=== PATIENT | female | born 1950 | race Caucasian/White ===

== ENCOUNTER → 2018-02-01 10:15 | Outpatient (CLI) | payer MEDICARE, OTHER, SELFPAY ==
[2018-02-01 11:37] LABS: AST(SGOT) 16 U/L (15-37); Alanine Aminotransfer ALT/SGPT 24 U/L (13-56); Albumin, Serum 3.7 g/dL (3.2-5.0); Alkaline Phosphatase 104 U/L (45-117); Anion Gap 7 (5-15); BUN 8 mg/dL (7-18); BUN/Creat Ratio 9.5 RATIO (10-20); Calcium,Total 8.7 mg/dL (8.5-10.1); Chloride 108 mmol/L (98-107); Creatinine, Serum 0.85 mg/dL (0.55-1.02); EST Glomerular Filtration Rate 71 mL/min (>60); Est Glom Filt Rate - Afr Amer 86 mL/min (>60); Globulin 3.7 g/dL (2.2-4.2); Glucose 81 mg/dL (74-106); Potassium 4.4 mmol/L (3.5-5.1); Protein, Total 7.4 g/dL (6.4-8.2); Sodium Level 141 mmol/L (136-145); Thyroid Stim Hormone (TSH) 0.16 uIU/mL (0.358-3.74)
== END ==
PROVIDERS: Family Provider Nurse Practitioner; PCP Nurse Practitioner; Visit Provider Internal Medicine Endocrinology, Diabetes & Metabolism
DX: E89.0 Postprocedural hypothyroidism (principal); E55.9 Vitamin D deficiency, unspecified
CPT/HCPCS: 36415; 80053; 82306; 84443

== ENCOUNTER → 2018-05-05 12:30 | Outpatient (CLI) | payer MEDICARE, OTHER, SELFPAY ==
--- NOTE | 2018-05-05 12:37 | BI_ITS ---
MAMMOGRAPHY - BILATERAL SCREENING 3-D RUPERTO SYNTHESIS REASON FOR EXAM: Female, 68 years old. Bilateral Screening 3-D tomosynthesis PERTINENT HISTORY: Mother and aunt with breast cancer.. TECHNIQUE: 2-D mammograms and 3-D Ruperto synthesis of the breast (s) were performed. CAD was performed. COMPARISON: 05/04/2017 FINDINGS: The breast composition is composed of scattered fibroglandular density. Scattered benign calcifications are seen. No dense spiculated masses or suspicious microcalcifications are identified. No architectural distortion is identified. There is no skin thickening or retraction. There has been no significant change since the prior study. BI/SCREENING MAMM (CAD), BILAT IMPRESSION: No mammographic signs of malignancy. Routine yearly mammograms recommended. ASSESSMENT CATEGORY: BIRADS Category 2: Benign. A letter regarding these results will be sent to the patient by the facility within 30 days. FOLLOW UP RECOMMENDATION: Yearly follow up mammogram recommended. (A) Approximately 10% of breast cancers are not detected by mammography. A normal mammogram should not delay biopsy of a clinically suspicious abnormality. Electronically Signed: Ace Vazquez MD at 15:02 EDT , Service support ,
== END ==
PROVIDERS: Family Provider Nurse Practitioner; PCP Nurse Practitioner; Visit Provider Nurse Practitioner
DX: Z12.31 Encounter for screening mammogram for malignant neoplasm of breast (principal)
CPT/HCPCS: 77063; 77067

== ENCOUNTER → 2018-06-10 10:03 | Outpatient (CLI) | payer MEDICARE, OTHER, SELFPAY | PROVIDERS: Family Provider Nurse Practitioner; PCP Nurse Practitioner; Visit Provider Internal Medicine Endocrinology, Diabetes & Metabolism | DX: E89.0 Postprocedural hypothyroidism (principal) ==

== ENCOUNTER → 2018-06-11 08:52 | Outpatient (CLI) | payer MEDICARE, OTHER, SELFPAY ==
[2018-06-11 09:38] LABS: AST(SGOT) 15 U/L (15-37); Alanine Aminotransfer ALT/SGPT 26 U/L (13-56); Albumin, Serum 3.8 g/dL (3.2-5.0); Alkaline Phosphatase 117 U/L (45-117); Anion Gap 10 (5-15); BUN 9 mg/dL (7-18); BUN/Creat Ratio 10.7 RATIO (10-20); Calcium,Total 8.9 mg/dL (8.5-10.1); Chloride 107 mmol/L (98-107); Creatinine, Serum 0.84 mg/dL (0.55-1.02); EST Glomerular Filtration Rate 72 mL/min (>60); Est Glom Filt Rate - Afr Amer 87 mL/min (>60); Glucose 89 mg/dL (74-106); Potassium 4.1 mmol/L (3.5-5.1); Protein, Total 7.8 g/dL (6.4-8.2); Sodium Level 143 mmol/L (136-145); Thyroid Stim Hormone (TSH) 0.62 uIU/mL (0.358-3.74)
== END ==
PROVIDERS: Family Provider Nurse Practitioner; PCP Nurse Practitioner; Visit Provider Internal Medicine Endocrinology, Diabetes & Metabolism
DX: E89.0 Postprocedural hypothyroidism (principal)
CPT/HCPCS: 80053; 84443

== ENCOUNTER → 2018-12-20 08:45 | Outpatient (CLI) | payer MEDICARE, OTHER, SELFPAY ==
[2018-12-20 10:24] LABS: AST(SGOT) 13 U/L (15-37); Alanine Aminotransfer ALT/SGPT 22 U/L (13-56); Albumin, Serum 3.9 g/dL (3.2-5.0); Alkaline Phosphatase 116 U/L (45-117); Anion Gap 11 (5-15); BUN 8 mg/dL (7-18); BUN/Creat Ratio 9.1 RATIO (10-20); Chloride 107 mmol/L (98-107); Cholesterol 199 mg/dL (200); Creatinine, Serum 0.88 mg/dL (0.55-1.02); EST Glomerular Filtration Rate 68 mL/min (>60); Est Glom Filt Rate - Afr Amer 82 mL/min (>60); Globulin 3.9 g/dL (2.2-4.2); Glucose 88 mg/dL (74-106); High Density Lipoprotein 58 mg/dL; Magnesium 2.1 mg/dL (1.6-2.6); Potassium 3.9 mmol/L (3.5-5.1); Protein, Total 7.8 g/dL (6.4-8.2); Sodium Level 143 mmol/L (136-145); Thyroid Stim Hormone (TSH) 1.07 uIU/mL (0.358-3.74); Triglycerides 146 mg/dL; Very Low Density Lipoprotein 29 mg/dL (5-40); Vitamin D,25 Hydroxy 71.7 ng/mL (29.95-100.01)
== END ==
PROVIDERS: Family Provider Nurse Practitioner; PCP Nurse Practitioner; Referring Provider Internal Medicine Endocrinology, Diabetes & Metabolism; Visit Provider Internal Medicine Endocrinology, Diabetes & Metabolism
DX: E89.0 Postprocedural hypothyroidism (principal); E78.2 Mixed hyperlipidemia; E83.42 Hypomagnesemia; E55.9 Vitamin D deficiency, unspecified
CPT/HCPCS: 36415; 80053; 80061; 82306; 83735; 84443

== ENCOUNTER → 2019-05-05 10:55 | Outpatient (CLI) | payer MEDICARE, OTHER, SELFPAY ==
--- NOTE | 2019-05-05 10:58 | RAD_ITS ---
STUDY: X-RAY - PELVIS AND RIGHT HIP REASON FOR EXAM: Female, 69 years old. Low back pain. TECHNIQUE: 3 views of the pelvis and hip. COMPARISON: None. FINDINGS: There is a non-specific bowel gas pattern. Phleboliths in the pelvis. Mild generalized osteopenia. Normal bilateral iliac wings, sacroiliac joints and visualized sacrum. Normal bilateral superior and inferior pubic rami. Normal pubic symphysis. Normal bilateral ischial tuberosities. Incidental note of spina bifida occulta of S1, a normal variant. Mild arthrosis of both hips. RAD/HIP, UNI W/ Pelvis 2-3 Views IMPRESSION: Osteopenia with mild arthrosis of both hips. Electronically Signed: Timoteo Curtis MD at 13:30 EDT , Service support ,
--- NOTE | 2019-05-05 10:58 | RAD_ITS ---
STUDY: X-RAY - LUMBAR SPINE REASON FOR EXAM: Female, 69 years old. Back pain. TECHNIQUE: 5 view(s) of the lumbar spine were obtained. COMPARISON: None FINDINGS: Mild generalized osteopenia. Normal lumbar lordosis. There is no substantial scoliosis. There is a normal alignment of the vertebrae. Normal vertebral bodies and endplates. Minimal intervertebral disc space narrowing most marked at L5-S1 with vacuum phenomenon. Diffuse facet sclerosis. Vascular calcification. RAD/L/S Spine Min 4 Views IMPRESSION: Osteopenia with mild lower lumbar spondylosis. Electronically Signed: Timoteo Curtis MD at 13:29 EDT , Service support ,
== END ==
PROVIDERS: Family Provider Nurse Practitioner; PCP Nurse Practitioner; Referring Provider Orthopaedic Surgery; Visit Provider Orthopaedic Surgery
DX: M85.88 Other specified disorders of bone density and structure, other site (principal); M16.0 Bilateral primary osteoarthritis of hip
CPT/HCPCS: 72110; 73502

== ENCOUNTER → 2019-05-06 11:44 | Outpatient (CLI) | payer MEDICARE, OTHER, SELFPAY ==
--- NOTE | 2019-05-06 11:48 | BI_ITS ---
MAMMOGRAPHY - BILATERAL SCREENING 3-D TOMOSYNTHESIS REASON FOR EXAM: Female, 69 years old. Bilateral Screening 3-D tomosynthesis PERTINENT HISTORY: Mother and aunt with breast cancer.. TECHNIQUE: 2-D mammograms and 3-D Tomosynthesis of the breast (s) were performed. CAD was performed. COMPARISON: 05/05/2018 FINDINGS: The breast composition is almost entirely fat. Scattered benign calcifications are seen. No dense spiculated masses or suspicious microcalcifications are identified. No architectural distortion is identified. There is no skin thickening or retraction. There has been no significant change since the prior study. BI/SCREEN MAMM (CAD) W/RUPERTO BILAT IMPRESSION: No mammographic signs of malignancy. Routine yearly mammograms recommended. ASSESSMENT CATEGORY: BIRADS Category 1: Negative. A letter regarding these results will be sent to the patient by the facility within 30 days. FOLLOW UP RECOMMENDATION: Yearly follow up mammogram recommended. (A) Approximately 10% of breast cancers are not detected by mammography. A normal mammogram should not delay biopsy of a clinically suspicious abnormality. Electronically Signed: Ace Vazquez MD at 13:09 EDT , Service support ,
== END ==
PROVIDERS: Family Provider Nurse Practitioner; PCP Nurse Practitioner; Referring Provider Nurse Practitioner; Visit Provider Nurse Practitioner
DX: Z12.31 Encounter for screening mammogram for malignant neoplasm of breast (principal); Z80.3 Family history of malignant neoplasm of breast
CPT/HCPCS: 77063; 77067

== ENCOUNTER 2019-06-24 13:30 | Outpatient (RCR) | payer MEDICARE, OTHER, SELFPAY ==
--- NOTE | 2019-05-16 14:47 | HP.PTEVAL ---
Patient's Visit Information CARMEN GARCIA is a 69 year old F referred to Physical Therapy by Bea Escoto DO with a diagnosis of LUMBAR DDD, FACET, RADICULOPATHY AND PIRIFORMIS SYND. Date of Evaluation: 05/16/19 Physical Therapist: Lindsey Mason, PT, Cert MDT - Visit Plan Frequency: 2-3x /Week Duration: 4-6 Weeks Plan: AQUATIC THERAPY FOR PAIN RELEIF, POSTURE CORRECTION/STRENGTHENING, INSTRUCTION IN APPROPRIATE BODY MECHANICS AND ACTIVITY MODIFICATIONS. DLS WITH A NEUTRAL SPINE. JANEL LE ROM, STRETCHING AND STRENGTHENING. HEP INSTRUCTION. - Subjective Findings: Work/Leisure: RETIRED. Disability: NO. Present symptoms: RIGHT HIP AND BUTTOCK PAIN. AT NIGHT JANEL HIP PAIN. MY LOWER BACK IS REAL ACHY. PATIENT DENIES JANEL LE NUMBNESS AND TINGLING. HAND AND LEG TREMORS - STATES DR. ESCOTO TOLD HER TO FOLLOW UP WITH HER FAMILY DOCTOR ABOUT. RIGHT LE WEAKNESS. Present since: NOV 2018. Pain Scale: WORST 7/10, LEAST 1/10. Currently: 10/21. Commenced as a result of: NO APPARENT REASON. Symptoms at onset: RIGHT HIP. Worse: STAIRS, LYING ON SIDES AT NIGHT, MORE STRENUOUS ACTIVITY LIKE MOWING, TRYING TO INITIATE GAIT AFTER SITTING RIGHT HIP IS REALLY TIGHT, AHES DOING DISHES - IN LOW BACK. Better: SITTING. Disturbed sleep: YES. Previous history/Previous treatment: AQUATIC THERAPY AT [facility] IN DECEMBER AND JANUARY - WATER HELPED SOME BUT DIDN'T FEEL LIKE SHE WAS ACCOMPLISHING A WHOLE LOT. WAS DOING HEP BUT SLACKED OFF AND NOW FLARED UP AGAIN. Coughing/sneezing/straining: NO. Gait: RIGHT SIDE IS STIFFER. Difficulty initiating urinatin: NO. Accidents: NO. Unexplained weight loss: NO. Imaging: RECENT HIP AND BACK X-RAYS - NO CHANGE FROM PRIOR X-RAYS. ARTHRITIS. PMH: UNREMARKABLE. Recent major surgery: NO. OTHER: ALSO RECEIVED REFERRAL FOR DR. LOGAN - PATIENT IS AWAITING CALL TO SCHEDULE - Objective Sitting/Standing: POOR. Lordosis: REDUCED. Lateral shift: NO. Relevant shift: N/A. Active Correction of posture: WORSE - PULLING ON LOW BACK. Other Observations: SLOW INDEP GAIT INTO PT WITH NO GROSS DEVIATIONS NOTED. INDEP TRANSFER SIT TO STAND WITHOUT UE ASSIST. Motor deficit: JANEL LE'S 5/5 WITH MMT'ING EXCEPT RIGHT HIP 4-/5 AND LEFT HIP 4/5. Sensory deficit: NO. ROM deficit: NO BUT TESTING OR RIGHT HIP IR PROVOKES RIGHT HIP PAIN. Reflexes: 1/2 JANEL LE'S. Dural Signs: NEGATIVE JANEL LE'S. Lumbar mvmt loss: flex - MIN. ext - GABRIELA. R SG - GABRIELA. L SG - GABRIELA. PATIENT DENIES INCREASED PAIN WITH LUMBAR ROM TESTING BUT STATES SHE FEELS A PULL ON HER LOW BACK ALL PLANES. Core strength: POOR. Palpation: NO ACUTE TENDERNESS OF BACK OR HIPS TODAY. - Goals Goal 1:: DECREASE C/O LOW BACK AND JANEL HIP PAIN Goal Time Frame: 4-6 Weeks Goal 2:: IMPROVE LIFTING, WALKING, STANDING, SLEEP AND HOMEMAKING FUNCTION Goal Time Frame: 4-6 Weeks Goal 3:: INSTRUCT IN PROPHYLAXIS Goal Time Frame: 4-6 Weeks - Rehabilitation Potential Rehabilitation Potential: Fair - Anticipated Interventions Patient/Client Instruction: Educate patient on: Condition, Plan of Care, Risk Factors, Benefits of Fitness Program For the Purpose of:: To improve self management Therapeutic Exercise to Include: Strength training, Body mechanics, Postural training, Flexibilty training, In an aquatic setting, Dynamic Lumbar Stabilization For the Purpose of:: To decrease pain, To increase ROM, To improve muscle performance and motor function, To increase tolerance to activity/condition/position, To improve ability of physical actions for home/community/work/leisure Thank you for the opportunity to evaluate your patient. For Medicare and Medicare HMO plans, please review the plan of care and approve it. It will need to be FAXED BACK to us at [phone] for Medicare purposes. For Medicare only, by signing this I certify the plan of care. Please let me know if there are questions or concerns regarding this plan of care. Physician Signature: Date:
--- NOTE | 2019-06-24 14:05 | HP.PTDCSUM ---
HP - PT D/C Summary It has been my pleasure to treat CARMEN GARCIA under orders from Bea Jacobs DO, for the diagnosis of LUMBAR DDD, FACET, RADICULOPATHY AND PIRIFORMIS SYND for a total of 9 visit(s). Discharge Date: 06/24/19 Please see the following information for a summary of their discharge status. - Subjective Subjective: I FEEL LOOSER. WHEN I GET UP AFTER SITTING MY HIP ISN'T STIFF IT WAS. STEPS ARE BETTER. RIGHT LEFT IS STRONGER. PATIENT REPORTS THAT AT THIS POINT SHE WANTS TO TRY TO FOLLOW UP WITH THE EX'S ON HER OWN AT HOME TO KEEP THE PROGRESS ACTIVE. I THINK THE POOL STUFF REALLY HELPED BUT I DON'T THINK I NEED TO DO IT ANYMORE. - Pain LB Pain Intensity (Out of 10): 0 R hip Pain Intensity (Out of 10): 0 - Overall Improvement % Improvement: 50 - Objective Objective/Function: PATIENT HAS MADE GOOD PROGRESS TOWARD ALL PT GOALS STATING SHE IS A LOT BETTER BUT IT ISN'T WONDERFUL. Active Correction of posture: BETTER. Other Observations: SLOW INDEP GAIT INTO PT WITH NO GROSS DEVIATIONS NOTED. INDEP TRANSFER SIT TO STAND WITHOUT UE ASSIST. Motor deficit: JANEL LE'S 5/5 WITH MMT'ING. Sensory deficit: NO. ROM deficit: NO. Reflexes: NT. Dural Signs: NEGATIVE JANEL LE'S. Lumbar mvmt loss: flex - MIN. ext - MOD. R SG - MOD. L SG - MOD. PATIENT DENIES INCREASED PAIN WITH LUMBAR ROM TESTING BUT STATES SHE STILL FEELS A PULL ON HER LOW BACK ALL PLANES. Core strength: POOR. Palpation: NO ACUTE TENDERNESS OF BACK OR HIPS TODAY. - Goals Goal 1:: DECREASE C/O LOW BACK AND JANEL HIP PAIN Goal Progress: Progressing Goal 2:: IMPROVE LIFTING, WALKING, STANDING, SLEEP AND HOMEMAKING FUNCTION Goal Progress: Progressing Goal 3:: INSTRUCT IN PROPHYLAXIS Goal Progress: Progressing - Plan Plan: D/C TO INDEP HEP AT PATIENTS REQUEST. - D/C Information If there are questions or concerns regarding this patient's physical therapy, please feel free to call me at [phone]. Thank you for the referral of this patient. Sincerely, Lindsey Mason, PT, Cert MDT
== END 2019-06-24 19:00 | disposition home or self-care (01) ==
LOC: PT 13:30
PROVIDERS: Family Provider Nurse Practitioner; PCP Nurse Practitioner; Referring Provider Orthopaedic Surgery; Visit Provider Orthopaedic Surgery
DX: M51.36 Other intervertebral disc degeneration, lumbar region (principal); M46.96 Unspecified inflammatory spondylopathy, lumbar region; M54.16 Radiculopathy, lumbar region
CPT/HCPCS: 97113; 97162; 97530

== ENCOUNTER → 2019-07-14 14:08 | Outpatient (CLI) | payer MEDICARE, OTHER, SELFPAY ==
--- NOTE | 2019-07-14 14:14 | CT_ITS ---
STUDY: CTA CHEST REASON FOR EXAM: Female, 69 years old. Elevated d-dimer. RADIATION DOSAGE (If Supplied By Facility): CTDIvol = ( 10.25 ) mGy, DLP = ( 477.21 ) mGycm TECHNIQUE: The examination was performed with the intravenous administration of IV 100mL [id number]-370 100. Post-processing of the angiographic images was performed, with multiplanar reformation and 3D reconstruction. Individualized dose optimization techniques were used for this CT. COMPARISON: None. FINDINGS: Normal enhancement of the main pulmonary artery and right and left pulmonary arteries. Normal enhancement of the bilateral peripheral pulmonary arteries. There is no demonstrated pulmonary embolism. There is atherosclerotic calcification of the aortic arch with tortuosity. There is no demonstrated aortic dissection. Normal heart and pericardium. Normal mediastinum. Normal hilar regions. Normal visualized trachea and bronchi. The lungs are well expanded. Normal pulmonary parenchyma. Normal pleura. Normal chest wall structures. Normal osseous structures. Small hiatal hernia. CT/CTA Chest W/WO Contrast IMPRESSION: Normal CTA chest examination, without a demonstrated pulmonary embolism or arterial dissection. Electronically Signed: Jorge Paz, at 15:10 EDT , Service support ,
[2019-07-14 14:46] LABS: CREATININE FINGERSTICK 0.8 mg/dL (0.55-1.02); EGFR FINGERSTICK > 60.0000 mL/min (>60)
== END ==
PROVIDERS: Family Provider Nurse Practitioner; PCP Nurse Practitioner; Referring Provider Nurse Practitioner; Visit Provider Nurse Practitioner
DX: R79.89 Other specified abnormal findings of blood chemistry (principal)
CPT/HCPCS: 71275; Q9967

== ENCOUNTER 2019-07-21 11:19 | Outpatient (RCR) | payer MEDICARE, OTHER, SELFPAY ==
--- NOTE | 2019-07-21 12:09 | HP.PTEVAL ---
Patient's Visit Information CARMEN GARCIA is a 69 year old F referred to Physical Therapy by VALENTIN Shukla with a diagnosis of BACK PAIN. Date of Evaluation: 07/21/19 Physical Therapist: Lindsey Mason PT, Cert MDT - Visit Plan Frequency: 1 Duration: 1 Plan: D/C. ONE TIME VISIT ONLY FOR HOME TENS UNIT ASSESSMENT AND INSTRUCTION. - Subjective Findings: PATIENT REPORTS SHE IS STILL DOING HER HOME EX'S AND THAT KIND OF HELPS KEEP IT FREED UP. STATES DR. LOGAN RECOMMENDED [facility] BUT SHE DECLINED THAT ROUTE AND WENT BACK TO HER FAMILY DOCTOR. WANTS TO TRY HOME TENS UNIT IN CONJUNCTION WITH HER HOME EX'S AND SEE HOW SHE DOES. PATIENT WAS RECENTLY HERE FOR AN EPISODE OF CARE MAY 2019 TO JUN 2019 FOR BACK PAIN. Present symptoms: DULL STEADY ACHE ACROSS BOTTOM OF LOW BACK. Present since: NOV 2018. Pain Scale: WORST 4/10, LEAST 1/10. Currently: 1/10. Worse: STANDING DOING DISHES, MOWING, LIFTING. Better: LYING IN BED. Previous history/Previous treatment: PYSICAL THERAPY, [facility]. OTHER: NO PACEMAKER. NO METAL IN LOW BACK. HAS NOT HAD ELECTRAL STIM TREATMENT IN PAST OR EVEN SEEN A UNIT. - Objective THIS PATIENT PRESENTS TO PHYSICAL THERAPY WITH C/O LOW BACK PAIN AND REQUESTING A HOME TENS UNIT TO USE IN CONJUNCTION WITH HER HOME EX PROGRAM. PATIENT WAS GIVEN INSTRUCTION IN THE PROPER USE OF A HOME TENS UNIT AND THE UNIT WAS APPLIED TO HER FOR SEVERAL MINUTES TO ASSESS RESPONSE TO TREATMENT. PATIENT DEMONSTRATED AND COMMUNICATED A GOOD UNDERSTANDING OF ALL INSTRUCTIONS AFTER GIVEN AND IS A GOOD CANDIDATE TO TRY A HOME TENS UNIT WITH 4 LEADS TO COVER AFFECTED AREA. PATIENT LIVES ALONE. SHE IS GOING TO ASK HER DAUGHTER OR SISTER TO HELP HER NEEDED WITH APPLICATION IN THE BEGINNING. - Goals Goal 1:: SUCCESSFUL INSTRUCTION IN THE USE OF A HOME TENS UNIT Goal Time Frame: 1 - Rehabilitation Potential Rehabilitation Potential: Good - Anticipated Interventions Thank you for the opportunity to evaluate your patient. For Medicare and Medicare HMO plans, please review the plan of care and approve it. It will need to be FAXED BACK to us at [phone] for Medicare purposes. For Medicare only, by signing this I certify the plan of care. Please let me know if there are questions or concerns regarding this plan of care. Physician Signature: Date:
== END 2019-07-21 19:00 | disposition home or self-care (01) ==
LOC: PT 11:19
PROVIDERS: Family Provider Nurse Practitioner; PCP Nurse Practitioner; Referring Provider Nurse Practitioner; Visit Provider Nurse Practitioner
DX: M54.9 Dorsalgia, unspecified (principal)
CPT/HCPCS: 97161

== ENCOUNTER → 2019-08-19 08:43 | Outpatient (CLI) | payer MEDICARE, OTHER, SELFPAY ==
[2019-05-05 11:26] VITALS: BMI 34.9
[2019-08-19 10:22] LABS: Vitamin D,25 Hydroxy 77.6 ng/mL (29.95-100.01)
[2019-08-19 10:28] LABS: AST(SGOT) 13 U/L (15-37); Alanine Aminotransfer ALT/SGPT 27 U/L (13-56); Albumin, Serum 3.8 g/dL (3.2-5.0); Alkaline Phosphatase 104 U/L (45-117); Anion Gap 10 (5-15); BUN 12 mg/dL (7-18); BUN/Creat Ratio 14.2 RATIO (10-20); Chloride 107 mmol/L (98-107); Creatinine, Serum 0.85 mg/dL (0.55-1.02); EST Glomerular Filtration Rate 71 mL/min (>60); Est Glom Filt Rate - Afr Amer 85 mL/min (>60); Globulin 3.9 g/dL (2.2-4.2); Glucose 88 mg/dL (74-106); Potassium 3.7 mmol/L (3.5-5.1); Protein, Total 7.7 g/dL (6.4-8.2); Sodium Level 142 mmol/L (136-145); Thyroid Stim Hormone (TSH) 0.59 uIU/mL (0.358-3.74)
== END ==
PROVIDERS: Family Provider Nurse Practitioner; PCP Nurse Practitioner; Referring Provider Internal Medicine Endocrinology, Diabetes & Metabolism; Visit Provider Internal Medicine Endocrinology, Diabetes & Metabolism
DX: E89.0 Postprocedural hypothyroidism (principal); E55.9 Vitamin D deficiency, unspecified
CPT/HCPCS: 36415; 80053; 82306; 83735; 84443

== ENCOUNTER 2019-09-28 12:30 | Outpatient (RCR) | payer MEDICARE, OTHER, SELFPAY ==
--- NOTE | 2019-08-26 15:19 | HP.PTEVAL ---
Patient's Visit Information CARMEN GARCIA is a 69 year old F referred to Physical Therapy by Krunal Arzate MD with a diagnosis of Imbalance from PD. Date of Evaluation: 08/26/19 Physical Therapist: Neftali Mcpherson, DPT, OCS, CSCS - Visit Plan Frequency: 2x /Week Duration: 4 Weeks Plan: 2x/week for up to 4 weeks to teach fro HEP: Head movement adn foam ex. weight shift large. LE adn postural strength. Please progress to I home program as safety allows adn give pics. Pt already has HS/quad and gstroc stretch pics. - Subjective Findings: Got tremors and been put on meds which has helped. Had them a few months. L leg drags at times. Has to be conscious of picking it up. Had therapy on hips for OA and LB in pool. Diagnosed PD 08/19/19 and ordered up therapy. No falls. Does not feel unsteady but has to be conscous of her foot as her heal drags. No cane or walker needed. No real spinning. No neuropathy but feet get hot sometimes. No real pain. LB hurts sometimes with stadning too long. Does ex at home for hips : piriformis stretch, PKF, HS stretches. Core strength lying on back. Not employed. Retired 3 years. Sleep is good mostly but hard to get comfy on hip and LB at times. Basic ADLS are OK live alone in one story house with washer in basement. Does laundry with railing. Plays [employer] for fun. Enjoys dinner functions and [employer] ex class for one our. - Objective TM and bike. Walks I slow but safe with good step length and no antalgia. Trasnfers withotu UE I form chair/bed. Steps are reciprocal only need rail to descend. reflexes patella and achilles 2/3. Sensation LE WNL to gross light touch. Strength LE 4/5. HS adn gastroc flex mod limited and quad mod limited. coordination to reciprocal toe tap WFL, Full UE AROM but needs encouragement to lift full flexion. No tremors today. - Balance Scores Functional Gait Assessment Score: 27 % Disability: 10.0000 CATSIB Score (Max score 120 seconds): 105 - Goals Goal 1:: Pt score 29/30 on FGA to diminish fall risk Goal Time Frame: 4-6 Weeks Goal 2:: Pt I in appropriate HEP for balance and strength to minimzie future problems. Goal Time Frame: 4-6 Weeks - Rehabilitation Potential Physical Therapy Diagnosis: Imbalance from PD Rehabilitation Potential: Fair - Anticipated Interventions Patient/Client Instruction: Educate patient on: Condition, Plan of Care For the Purpose of:: To improve muscle performance and motor function, To improve ability of physical actions for home/community/work/leisure, To improve gait and locomotor functions, To improve safety Therapeutic Exercise to Include: Strength training, Balance training, Flexibilty training, Gait and locomotor training For the Purpose of:: To increase tolerance to activity/condition/position, To improve ability of physical actions for home/community/work/leisure, To improve balance, To improve safety with gait Thank you for the opportunity to evaluate your patient. For Medicare and Medicare HMO plans, please review the plan of care and approve it. It will need to be FAXED BACK to us at [phone] for Medicare purposes. For Medicare only, by signing this I certify the plan of care. Please let me know if there are questions or concerns regarding this plan of care. Physician Signature: Date:
--- NOTE | 2019-09-28 13:22 | HP.PTDCSUM_ITS ---
HP - PT D/C Summary It has been my pleasure to treat CARMEN GARCIA under orders from Krunal Arzate MD, for the diagnosis of Imbalance from PD for a total of 9 visit(s). Discharge Date: 09/28/19 Please see the following information for a summary of their discharge status. - Subjective Subjective: I been exercising at home. Feels stronger than she was especially going down steps. No balance issues lately. is careful on the steps. No pain. Can continue at home with HEP. To doctor Carito Oct 21. - Overall Improvement % Improvement: 60 - Objective Objective/Function: FGAis +2. Walking well adn trasnferring from chair I wi thout UE. Steps up and down without UE reciprocally. (educated to use rail). OVERALL DOING WELL AND WILL CONTINUE VIA hep. - Goals Goal 1:: Pt score 29/30 on FGA to diminish fall risk Goal Progress: Goal Met Goal 2:: Pt I in appropriate HEP for balance and strength to minimzie future problems. Goal Progress: Goal Met - Plan Plan: Continue via HEP adn f/u doctor Shad. - D/C Information Discharge Comments: Pt doing well with HEP and will continue I at home adn see doctor in October. If there are questions or concerns regarding this patient's physical therapy, please feel free to call me at [phone]. Thank you for the referral of this patient. Sincerely, Neftali Mcpherson, DPT, OCS, CSCS
== END 2019-09-28 19:00 | disposition home or self-care (01) ==
LOC: PT 12:30
PROVIDERS: Family Provider Nurse Practitioner; PCP Nurse Practitioner; Referring Provider Psychiatry & Neurology Neurology; Visit Provider Psychiatry & Neurology Neurology
DX: R26.89 Other abnormalities of gait and mobility (principal)
CPT/HCPCS: 97110; 97116; 97162; 97530

== ENCOUNTER → 2019-10-26 14:34 | Outpatient (CLI) | payer SELFPAY ==
--- NOTE | 2019-10-26 14:48 | CT_ITS ---
STUDY: CARDIAC CALCIUM SCORING - CT CHEST REASON FOR EXAM: Female, 69 years old. CALCIUM SCREENING RADIATION DOSAGE (If Supplied By Facility): CTDIvol = ( 12.19 ) mGy, DLP = ( 170.66 ) mGycm TECHNIQUE: Axial non-enhanced images were acquired through the heart for the sole purpose of measuring coronary artery calcium. Individualized dose optimization techniques were used for this CT. COMPARISON: None. FINDINGS: Visualized surrounding anatomy: Normal. Left Main Coronary Artery: 0 Left Anterior Descending Artery: 0 Left Circumflex Artery: 0 Right Coronary Artery: 0 Other: Mild atherosclerotic changes of the aorta without evidence for aneurysm Total Calcium Score: 0 CT/Limited Chest CT w/CCTA IMPRESSION: A Calcium Score of 0 places the patient in the approximate 0 percentile, based on the DRIVER data calculator. Please go to: [email or web address]-[email or web address]/Calcium/input.aspx , for a description of the calculator. Electronically Signed: Michael Bauer MD at 16:00 EST , Service support ,
[2019-10-26 14:55] VITALS: BP 147/59; PULSE 61; RESP 16; O2SAT 97; BMI 35.4
--- NOTE | 2019-10-26 16:28 | CA.SCORE ---
Calcium Scoring Date of Study:: 10/26/19 Coronary Calcium Scoring: High-resolution Computed Tomographic imaging of the chest was performed on [10/26/2019 ], with particular attention paid to the coronary arteries. Images from the examination were analyzed for the presence and extent of coronary artery calcification , using coronary calcium quantification software. The patient tolerated the procedure well and there were no complications. The results of the coronary calcification analysis are provided below. - Findings Left Main (LM): 0 Left Anterior Descending (LAD): 0 Left Circumflex (LCX): 0 Right Coronary Artery (RCA): 0 Total Agatston Score: 0 Percentile Rankin Calcium Scoring Interpretation: 0 No identifiable atherosclerotic plaque. Very low cardiovascular disease risk. <5% chance of presence coronary artery disease A Negative Examination 1-10 Minimal Plaque burden. Significant coronary artery disease very unlikely. 11-100 Mild plaque burden. Likely mild or minimal coronary atherosclerosis. 101-400 Moderate plaque burden Moderate non-obstructive coronary artery disease highly likely. Over 400 Extensive plaque burden. High likelihood of at least one significant coronary stenosis (>50% diameter) Conclusion: The total calcium score (0) is below the 25th percentile for women between the ages of 65 and 69. (Exact percentile calculated to be 0%; this means 0% of the population has a similar calcium score and 99% of the population is a higher calcium score than this patient.) A full evaluation of cardiac risk including assessment of all conventional risk factors, and the scores and percentile rankings reported herein should be evaluated in this context.
== END ==
PROVIDERS: Family Provider Nurse Practitioner; PCP Nurse Practitioner; Referring Provider Nurse Practitioner; Visit Provider Nurse Practitioner
DX: Z13.6 Encounter for screening for cardiovascular disorders (principal); E78.00 Pure hypercholesterolemia, unspecified; Z82.49 Family history of ischemic heart disease and other diseases of the circulatory system
CPT/HCPCS: 75571; 76380

== ENCOUNTER → 2019-11-16 09:30 | Outpatient (CLI) | payer MEDICARE, OTHER, SELFPAY ==
[2019-10-26 14:55] VITALS: BMI 35.4
--- NOTE | 2019-11-16 09:32 | CDU_ITS ---
Reason For Study: ABNL RAD FINDINGS Rt. Velocities/BP Lt. Velocities/BP Prox CCA 96.0/20.3 cm/sec. Prox CCA 116.7/23.6 cm/sec. Mid CCA 114.2/24.3 cm/sec. Mid CCA 107.6/27.2 cm/sec. Dist CCA 92.1/25.6 cm/sec. Dist CCA 91.1/19.9 cm/sec. Prox ICA 115.4/25.9 cm/sec. Prox ICA 76.4/17.4 cm/sec. Mid ICA 111.8/38.7 cm/sec. Mid ICA 109.4/27.2 cm/sec. Dist ICA 114.9/29.0 cm/sec. Dist ICA 164.4/45.9 cm/sec. 115.4/114.2=1.0. Lt. ICA/CCA = 164.4/107.6=1.5. Prox ECA 170.3/16.7 cm/sec. Prox ECA 125.8/7.1 cm/sec. Rt. Vert. 71.1/12.2 cm/sec. Lt. Vert. 49.0/13.1 cm/sec. Right Extracranial There is intimal thickening but no significant atherosclerotic plaque noted in the right common carotid artery. There is intimal thickening but no significant atherosclerotic plaque noted in the right internal carotid artery. There is heterogeneous, smooth atherosclerotic plaque noted in the right external carotid artery. Antegrade flow is noted in the right vertebral artery. There is heterogeneous, irregular atherosclerotic plaque noted in the right bulb. Left Extracranial There is homogeneous, smooth atherosclerotic plaque noted in the left common carotid artery. There is intimal thickening but no significant atherosclerotic plaque noted in the left internal carotid artery. The tortuous nature of the left DISTAL internal carotid artery may result in flow velocities overestimating the degree of stenosis. There is no significant atherosclerotic plaque noted in the left external carotid artery. Antegrade flow is noted in the left vertebral artery. There is heterogeneous, irregular atherosclerotic plaque noted in the left bulb. Interpretation Summary Minimal smooth plaque at the proximal right internal carotid artery with less than 50% stenosis. <50% stenosis right external carotid. Irregular calcific plaque with shadowing at the proximal left internal carotid artery with 50 to 69% stenosis, noted more distally. <50% stenosis left external carotid Patent and antegrade bilateral vertebrals Ordering Physician: Sushma Mueller Referring Physician: Sushma Mueller Performed By: Jessica Guillen, FORTUNATO, RVT
== END ==
PROVIDERS: PCP Nurse Practitioner; Referring Provider Nurse Practitioner; Visit Provider Nurse Practitioner
DX: R42 Dizziness and giddiness (principal); R93.89 Abnormal findings on diagnostic imaging of other specified body structures
CPT/HCPCS: 93880

== ENCOUNTER → 2020-04-20 07:56 | Outpatient (CLI) | payer MEDICARE, OTHER, SELFPAY ==
[2020-04-19 11:21] VITALS: BMI 35.4
[2020-04-20 08:30] LABS: Hematocrit 41.6 % (37-47); Mean Corp Hgb Conc 33.7 g/dL (32-36); Mean Platelet Vol. 8.3 fl (6.2-12.0); Platelet Count 281 K/mm3 (150-450); RBC Distribution Width CV 13.2 % (11.6-14.6); RBC Distribution Width SD 43.5 fl (35.1-43.9); Red Blood Count 4.52 M/mm3 (4.2-5.4); White Blood Count 5.7 K/mm3 (4.4-11.0)
[2020-04-20 08:57] LABS: AST(SGOT) 12 U/L (15-37); Alanine Aminotransfer ALT/SGPT 21 U/L (13-56); Albumin, Serum 3.8 g/dL (3.2-5.0); Alkaline Phosphatase 121 U/L (45-117); Anion Gap 6 (5-15); BUN 12 mg/dL (7-18); BUN/Creat Ratio 14.9 RATIO (10-20); Calcium,Total 8.9 mg/dL (8.5-10.1); Chloride 109 mmol/L (98-107); Cholesterol 209 mg/dL (200); Creatinine, Serum 0.81 mg/dL (0.55-1.02); EST Glomerular Filtration Rate 75 mL/min (>60); Est Glom Filt Rate - Afr Amer 90 mL/min (>60); Glucose 93 mg/dL (74-106); High Density Lipoprotein 50 mg/dL; Magnesium 2.1 mg/dL (1.6-2.6); Potassium 4.1 mmol/L (3.5-5.1); Protein, Total 7.8 g/dL (6.4-8.2); Sodium Level 140 mmol/L (136-145); Thyroid Stim Hormone (TSH) 0.49 uIU/mL (0.358-3.74); Triglycerides 162 mg/dL; Very Low Density Lipoprotein 32 mg/dL (5-40)
[2020-04-20 09:51] LABS: Vitamin B12 784 pg/mL (211-911); Vitamin D,25 Hydroxy 86.7 ng/mL
== END ==
PROVIDERS: Psychiatry & Neurology Neurology; PCP Nurse Practitioner; Referring Provider Internal Medicine Endocrinology, Diabetes & Metabolism; Visit Provider Internal Medicine Endocrinology, Diabetes & Metabolism
DX: E89.0 Postprocedural hypothyroidism (principal); E78.2 Mixed hyperlipidemia; E53.9 Vitamin B deficiency, unspecified; E55.9 Vitamin D deficiency, unspecified; G20 Parkinson's disease
CPT/HCPCS: 36415; 80053; 80061; 82306; 82607; 83735; 84443; 85027

== ENCOUNTER → 2020-05-08 12:16 | Outpatient (CLI) | payer MEDICARE, OTHER, SELFPAY ==
[2020-04-19 11:21] VITALS: BMI 35.4
--- NOTE | 2020-05-08 12:17 | BI_ITS ---
MAMMOGRAPHY - BILATERAL SCREENING REASON FOR EXAM: Female, 70 years old. Routine annual screening examination. PERTINENT HISTORY: Mother with breast cancer. Aunts with breast cancer. TECHNIQUE: Digital bilateral breast ruperto (3D mammographic acquisition) in the CC and MLO projections. 2-D mediolateral oblique (MLO) and craniocaudad (CC) views of both breasts were obtained. CAD: Full Field Digital Mammography with Computer Added Detection was performed. COMPARISON: Comparison is made with prior examination dated 05-06-19 and 05-05-18. FINDINGS: Breast Composition: There are scattered areas of fibroglandular density. There are no dominant masses or suspicious calcifications. No other significant abnormalities are identified. There has been no significant change since the prior study. BI/SCREEN MAMM (CAD) W/RUPERTO BILAT IMPRESSION: Stable bilateral screening mammogram. Yearly follow-up mammogram recommended. (A) ASSESSMENT CATEGORY: BIRADS Category 2: Benign. A letter regarding these results will be sent to the patient by the facility within 30 days. Approximately 10% of breast cancers are not detected by mammography. A normal mammogram should not delay biopsy of a clinically suspicious abnormality. [id number] Electronically Signed: Jorge Paz, at 13:46 EDT , Service support ,
== END ==
PROVIDERS: PCP Nurse Practitioner; Referring Provider Nurse Practitioner; Visit Provider Nurse Practitioner
DX: Z12.31 Encounter for screening mammogram for malignant neoplasm of breast (principal); Z80.3 Family history of malignant neoplasm of breast
CPT/HCPCS: 77063; 77067

== ENCOUNTER → 2020-10-22 09:20 | Outpatient (CLI) | payer MEDICARE, OTHER, SELFPAY ==
[2020-10-22 11:29] LABS: Vitamin D,25 Hydroxy 80.8 ng/mL
[2020-10-22 11:38] LABS: ALB/GLOB Ratio 1.2 RATIO (0.9-2.4); AST(SGOT) 14 U/L (15-37); Alanine Aminotransfer ALT/SGPT 20 U/L (13-56); Alkaline Phosphatase 114 U/L (45-117); Anion Gap 9 (5-15); BUN 10 mg/dL (7-18); BUN/Creat Ratio 11.4 RATIO (10-20); Calcium,Total 8.9 mg/dL (8.5-10.1); Chloride 110 mmol/L (98-107); Creatinine, Serum 0.88 mg/dL (0.55-1.02); EST Glomerular Filtration Rate 68 mL/min (>60); Est Glom Filt Rate - Afr Amer 82 mL/min (>60); Globulin 3.4 g/dL (2.2-4.2); Glucose 78 mg/dL (74-106); Potassium 4.3 mmol/L (3.5-5.1); Protein, Total 7.4 g/dL (6.4-8.2); Sodium Level 142 mmol/L (136-145); Thyroid Stim Hormone (TSH) 1.64 uIU/mL (0.358-3.74)
== END ==
PROVIDERS: PCP Nurse Practitioner; Referring Provider Internal Medicine Endocrinology, Diabetes & Metabolism; Visit Provider Internal Medicine Endocrinology, Diabetes & Metabolism
DX: E89.0 Postprocedural hypothyroidism (principal); E55.9 Vitamin D deficiency, unspecified
CPT/HCPCS: 36415; 80053; 82306; 84443

== ENCOUNTER → 2021-05-10 11:24 | Outpatient (CLI) | payer MEDICARE, OTHER, SELFPAY ==
--- NOTE | 2021-05-10 11:28 | BI_ITS ---
MAMMOGRAPHY - BILATERAL SCREENING 3-D TOMOSYNTHESIS REASON FOR EXAM: Female, 71 years old. Routine screening PERTINENT HISTORY: Mother and aunts with breast cancer.. TECHNIQUE: 2-D mammograms and 3-D Tomosynthesis of the breast (s) were performed. CAD was performed. COMPARISON: 05/08/2020 FINDINGS: The breast composition is composed of scattered fibroglandular density. Scattered benign calcifications are seen. No dense spiculated masses or suspicious microcalcifications are identified. No architectural distortion is identified. There is no skin thickening or retraction. There has been no significant change since the prior study. BI/SCRN MAMM (CAD)W/RUPERTO BILAT IMPRESSION: No mammographic signs of malignancy. Routine yearly mammograms recommended. ASSESSMENT CATEGORY: BIRADS Category 2: Benign. A letter regarding these results will be sent to the patient by the facility within 30 days. FOLLOW UP RECOMMENDATION: Yearly follow up mammogram recommended. (A) Approximately 10% of breast cancers are not detected by mammography. A normal mammogram should not delay biopsy of a clinically suspicious abnormality. Electronically Signed: Ace Vazquez MD at 12:24 EDT , Service support ,
== END ==
PROVIDERS: PCP Nurse Practitioner; Referring Provider Nurse Practitioner; Visit Provider Nurse Practitioner
DX: Z12.31 Encounter for screening mammogram for malignant neoplasm of breast (principal); Z80.3 Family history of malignant neoplasm of breast
CPT/HCPCS: 77063; 77067

== ENCOUNTER → 2021-05-27 07:13 | Outpatient (CLI) | payer MEDICARE, OTHER, SELFPAY ==
[2021-05-27 07:44] LABS: Absolute Lymphocyte Count 1.49 X10^3/uL (0.83-4.51); Absolute Neutrophil Count 4.3 X10^3/uL (2.0-7.7); Basophil# 0.06 X10^3/uL; Basophil% 0.9 % (0-1); Eosinophil# 0.15 X10^3/uL; Eosinophils% 2.3 % (0-5); Hematocrit 39.5 % (37-47); Hemoglobin 13.2 g/dL (12.0-15.0); Lymphocyte # 1.49 X10^3/ul (0.83-4.51); Mean Corp Hgb Conc 33.4 g/dL (32-36); Mean Corpuscular Hgb 30.5 pg (27.0-32.0); Mean Corpuscular Volume 91.2 fL (81-99); Mean Platelet Vol. 8.5 fl (6.2-12.0); Monocyte# 0.46 X10^3/uL; Monocyte% 7.1 % (0-10); NRBC Flagged by Analyzer 0 % (0-5); Neutrophil # 4.31 X10^3/uL (2.7-7.7); Neutrophil % 66.5 % (47-70); Platelet Count 285 K/mm3 (150-450); RBC Distribution Width CV 13.2 % (11.6-14.6); RBC Distribution Width SD 44.4 fl (35.1-43.9); Red Blood Count 4.33 M/mm3 (4.2-5.4); White Blood Count 6.5 K/mm3 (4.4-11.0)
[2021-05-27 08:20] LABS: ALB/GLOB Ratio 1.1 RATIO (0.9-2.4); AST(SGOT) 17 U/L (15-37); Alanine Aminotransfer ALT/SGPT 24 U/L (13-56); Albumin, Serum 3.8 g/dL (3.2-5.0); Alkaline Phosphatase 105 U/L (45-117); Anion Gap 7 (5-15); BUN 10 mg/dL (7-18); BUN/Creat Ratio 11.3 RATIO (10-20); Calcium,Total 8.9 mg/dL (8.5-10.1); Chloride 109 mmol/L (98-107); Cholesterol 180 mg/dL (200); Creatinine, Serum 0.88 mg/dL (0.55-1.02); EST Glomerular Filtration Rate 67 mL/min (>60); Est Glom Filt Rate - Afr Amer 81 mL/min (>60); Globulin 3.6 g/dL (2.2-4.2); Glucose 98 mg/dL (74-106); High Density Lipoprotein 50 mg/dL; Magnesium 2.2 mg/dL (1.6-2.6); Protein, Total 7.4 g/dL (6.4-8.2); Sodium Level 140 mmol/L (136-145); Thyroid Stim Hormone (TSH) 0.75 uIU/mL (0.358-3.74); Triglycerides 138 mg/dL; Very Low Density Lipoprotein 28 mg/dL (5-40)
[2021-05-27 08:53] LABS: Vitamin B12 853 pg/mL (211-911); Vitamin D,25 Hydroxy 103.4 ng/mL
== END ==
PROVIDERS: PCP Nurse Practitioner; Referring Provider Internal Medicine Endocrinology, Diabetes & Metabolism; Visit Provider Internal Medicine Endocrinology, Diabetes & Metabolism
DX: I10 Essential (primary) hypertension (principal); E89.0 Postprocedural hypothyroidism; E78.2 Mixed hyperlipidemia; E55.9 Vitamin D deficiency, unspecified; E53.9 Vitamin B deficiency, unspecified
CPT/HCPCS: 36415; 80053; 80061; 82306; 82607; 83735; 84443; 85025

== ENCOUNTER → 2021-08-13 13:33 | Outpatient (CLI) | payer MEDICARE, OTHER, SELFPAY ==
--- NOTE | 2021-08-13 13:39 | VDLE_ITS ---
Reason For Study: Lt ankle swelling RIGHT LEFT CFV is compressible, spontaneous, phasic, GSV is normal. competent and demonstrates normal CFV is compressible, spontaneous, phasic, augmentation. competent, and demonstrates normal Procedure augmentation. This is a venous duplex using B-mode, color FV is compressible, spontaneous, phasic, flow and spectral Doppler. competent and demonstrates normal Exam performed in department. augmentation. A preliminary report was called and/or faxed POP V is compressible, spontaneous, phasic, to Keishaa. competent and demonstrates normal augmentation. T/P Trunk is compressible. PTV is compressible. LT PerV is compressible. VL/Venous Duplex US, Unilateral Interpretation Summary Deep veins of the left lower extremity are patent and compressible segmentally. There is no evidence of left lower extremity deep vein thrombosis. Valvular competence appears intac t within the proximal deep venous system on the left . The left great saphenous vein appears patent a nd compressible segmentally. Ordering Physician: Sushma Mueller Referring Physician: Sushma Mueller Performed By: Myrna Garcia RVT
== END ==
PROVIDERS: PCP Nurse Practitioner; Referring Provider Nurse Practitioner; Visit Provider Nurse Practitioner
DX: M25.472 Effusion, left ankle (principal)
CPT/HCPCS: 93971

== ENCOUNTER → 2021-10-09 | Outpatient (CLI) | payer MEDICARE, OTHER, SELFPAY | END | disposition home or self-care (01) | LOC: LABSPEC 12:38 | PROVIDERS: PCP Nurse Practitioner; Visit Provider Nurse Practitioner | DX: Z20.822 Contact with and (suspected) exposure to COVID-19 (principal) | CPT/HCPCS: 87635; U0005; U0003 ==

== ENCOUNTER 2021-12-20 08:03 | Outpatient (CLI) | payer MEDICARE, OTHER, SELFPAY ==
[2021-12-20 08:46] LABS: Vitamin D,25 Hydroxy 76.1 ng/mL
[2021-12-20 08:53] LABS: AST(SGOT) 11 U/L (15-37); Alanine Aminotransfer ALT/SGPT 17 U/L (13-56); Albumin, Serum 3.8 g/dL (3.2-5.0); Alkaline Phosphatase 115 U/L (45-117); Anion Gap 5 (5-15); BUN 13 mg/dL (7-18); BUN/Creat Ratio 13.2 RATIO (10-20); Calcium,Total 9.6 mg/dL (8.5-10.1); Chloride 107 mmol/L (98-107); Creatinine, Serum 0.98 mg/dL (0.55-1.02); EST Glomerular Filtration Rate 59 mL/min (>60); Est Glom Filt Rate - Afr Amer 72 mL/min (>60); Globulin 3.9 g/dL (2.2-4.2); Glucose 89 mg/dL (74-106); Protein, Total 7.7 g/dL (6.4-8.2); Sodium Level 140 mmol/L (136-145); Thyroid Stim Hormone (TSH) 0.54 uIU/mL (0.358-3.74)
== END 2021-12-20 23:59 | disposition home or self-care (01) ==
LOC: LAB 08:06
PROVIDERS: PCP Nurse Practitioner; Visit Provider Internal Medicine Endocrinology, Diabetes & Metabolism
DX: E89.0 Postprocedural hypothyroidism (principal); E55.9 Vitamin D deficiency, unspecified
CPT/HCPCS: 36415; 80053; 82306; 84443

== ENCOUNTER → 2022-05-06 | Outpatient (CLI) | payer MEDICARE, OTHER, SELFPAY ==
[2022-05-06 15:01] LABS: Hematocrit 42.7 % (37-47); Hemoglobin 14.2 g/dL (12.0-15.0); Mean Corp Hgb Conc 33.3 g/dL (32-36); Mean Corpuscular Hgb 30.1 pg (27.0-32.0); Mean Corpuscular Volume 90.7 fL (81-99); Mean Platelet Vol. 8.5 fl (6.2-12.0); Platelet Count 358 K/mm3 (150-450); RBC Distribution Width CV 12.7 % (11.6-14.6); Red Blood Count 4.71 M/mm3 (4.2-5.4); White Blood Count 9.3 K/mm3 (4.4-11.0)
[2022-05-06 19:33] LABS: Ferritin 158 ng/mL (8-252); Iron 80 ug/dL (50-170)
== END | disposition home or self-care (01) ==
LOC: MTLAB 12:34
PROVIDERS: PCP Nurse Practitioner; Referring Provider Psychiatry & Neurology Neurology; Visit Provider Psychiatry & Neurology Neurology
DX: G20 Parkinson's disease (principal); Z86.2 Personal history of diseases of the blood and blood-forming organs and certain disorders involving the immune mechanism
CPT/HCPCS: 36415; 82728; 83540; 85027

== ENCOUNTER → 2022-05-12 | Outpatient (CLI) | payer MEDICARE, OTHER, SELFPAY ==
--- NOTE | 2022-05-12 10:52 | BI_ITS ---
MAMMOGRAPHY - BILATERAL SCREENING 3-D TOMOSYNTHESIS REASON FOR EXAM: Female, 72 years old. Routine screening PERTINENT HISTORY: Mother and aunts with breast cancer.. TECHNIQUE: 2-D mammograms and 3-D Tomosynthesis of the breast (s) were performed. CAD was performed. COMPARISON: 05/08/2020 FINDINGS: The breast composition is composed of scattered fibroglandular density. Scattered benign calcifications are seen. No dense spiculated masses or suspicious microcalcifications are identified. No architectural distortion is identified. There is no skin thickening or retraction. There has been no significant change since the prior study. BI/SCRN MAMM (CAD)W/RUPERTO BILAT IMPRESSION: No mammographic signs of malignancy. Routine yearly mammograms recommended. ASSESSMENT CATEGORY: BIRADS Category 2: Benign. A letter regarding these results will be sent to the patient by the facility within 30 days. FOLLOW UP RECOMMENDATION: Yearly follow up mammogram recommended. (A) Approximately 10% of breast cancers are not detected by mammography. A normal mammogram should not delay biopsy of a clinically suspicious abnormality. Electronically Signed: Ace Vazquez MD at 15:01 EDT ,
== END | disposition home or self-care (01) ==
LOC: OPBI 10:48
PROVIDERS: PCP Nurse Practitioner; Visit Provider Nurse Practitioner
DX: Z12.31 Encounter for screening mammogram for malignant neoplasm of breast (principal); Z80.3 Family history of malignant neoplasm of breast
CPT/HCPCS: 77063; 77067

== ENCOUNTER → 2022-07-22 | Outpatient (CLI) | payer MEDICARE, OTHER, SELFPAY ==
[2022-07-22 09:57] LABS: ALB/GLOB Ratio 0.9 RATIO (0.9-2.4); AST(SGOT) 11 U/L (15-37); Alanine Aminotransfer ALT/SGPT 16 U/L (13-56); Albumin, Serum 3.7 g/dL (3.2-5.0); Alkaline Phosphatase 115 U/L (45-117); Anion Gap 7 (5-15); BUN 14 mg/dL (7-18); BUN/Creat Ratio 16.6 RATIO (10-20); Calcium,Total 9.1 mg/dL (8.5-10.1); Chloride 110 mmol/L (98-107); Cholesterol 187 mg/dL (200); Creatinine, Serum 0.84 mg/dL (0.55-1.02); EST Glomerular Filtration Rate 71 mL/min (>60); Est Glom Filt Rate - Afr Amer 86 mL/min (>60); Glucose 90 mg/dL (74-106); High Density Lipoprotein 53 mg/dL; Magnesium 2.2 mg/dL (1.6-2.6); Potassium 4.1 mmol/L (3.5-5.1); Protein, Total 7.7 g/dL (6.4-8.2); Sodium Level 141 mmol/L (136-145); Thyroid Stim Hormone (TSH) 0.23 uIU/mL (0.358-3.74); Triglycerides 112 mg/dL; Very Low Density Lipoprotein 22 mg/dL (5-40)
[2022-07-22 11:26] LABS: PTHIN 31.6 pg/mL (18.4-80.1)
[2022-07-22 11:37] LABS: Vitamin D,25 Hydroxy 75.3 ng/mL
== END | disposition home or self-care (01) ==
LOC: LAB 08:14
PROVIDERS: PCP Nurse Practitioner Family; Referring Provider Internal Medicine Endocrinology, Diabetes & Metabolism; Visit Provider Internal Medicine Endocrinology, Diabetes & Metabolism
DX: E89.0 Postprocedural hypothyroidism (principal); E21.5 Disorder of parathyroid gland, unspecified; E78.2 Mixed hyperlipidemia; E55.9 Vitamin D deficiency, unspecified; E83.42 Hypomagnesemia
CPT/HCPCS: 36415; 80053; 80061; 82306; 83735; 83970; 84443

== ENCOUNTER → 2023-02-24 | Outpatient (CLI) | payer MEDICARE, OTHER, SELFPAY ==
[2023-02-24 08:30] LABS: Absolute Lymphocyte Count 1.82 X10^3/uL (0.83-4.51); Absolute Neutrophil Count 4.2 X10^3/uL (2.0-7.7); Basophil# 0.05 X10^3/uL; Basophil% 0.7 % (0-1); Eosinophil# 0.18 X10^3/uL; Eosinophils% 2.7 % (0-5); Hemoglobin 14.6 g/dL (12.0-15.0); Lymphocyte # 1.82 X10^3/ul (0.83-4.51); Lymphocyte % 27.1 % (19-41); Mean Corp Hgb Conc 32.4 g/dL (32-36); Mean Corpuscular Hgb 30.5 pg (27.0-32.0); Mean Corpuscular Volume 93.9 fL (81-99); Mean Platelet Vol. 8.6 fl (6.2-12.0); Monocyte# 0.46 X10^3/uL; Monocyte% 6.8 % (0-10); NRBC Flagged by Analyzer 0 % (0-5); Neutrophil # 4.19 X10^3/uL (2.7-7.7); Neutrophil % 62.4 % (47-70); Platelet Count 304 K/mm3 (150-450); RBC Distribution Width CV 13.1 % (11.6-14.6); RBC Distribution Width SD 45.1 fl (35.1-43.9); Red Blood Count 4.79 M/mm3 (4.2-5.4); White Blood Count 6.7 K/mm3 (4.4-11.0)
[2023-02-24 08:58] LABS: AST(SGOT) 25 U/L (15-37); Alanine Aminotransfer ALT/SGPT 16 U/L (13-56); Albumin, Serum 3.9 g/dL (3.2-5.0); Alkaline Phosphatase 112 U/L (45-117); Anion Gap 8 (5-15); BUN 13 mg/dL (7-18); BUN/Creat Ratio 14.3 RATIO (10-20); Calcium,Total 9.6 mg/dL (8.5-10.1); Chloride 105 mmol/L (98-107); Creatinine, Serum 0.91 mg/dL (0.55-1.02); EST Glomerular Filtration Rate 64 mL/min (>60); Est Glom Filt Rate - Afr Amer 78 mL/min (>60); Globulin 4.1 g/dL (2.2-4.2); Glucose 93 mg/dL (74-106); Potassium 4.5 mmol/L (3.5-5.1); Sodium Level 140 mmol/L (136-145); Thyroid Stim Hormone (TSH) 0.92 uIU/mL (0.358-3.74)
== END | disposition home or self-care (01) ==
LOC: LAB 08:09
PROVIDERS: PCP Nurse Practitioner Family; Referring Provider Nurse Practitioner Family; Visit Provider Nurse Practitioner Family
DX: D64.9 Anemia, unspecified (principal)
CPT/HCPCS: 36415; 80053; 84443; 85025

== ENCOUNTER → 2023-05-15 | Outpatient (CLI) | payer MEDICARE, OTHER, SELFPAY ==
--- NOTE | 2023-05-15 12:03 | BI_ITS ---
MAMMOGRAPHY - BILATERAL SCREENING REASON FOR EXAM: Female, 73 years old. Routine annual screening examination. PERTINENT HISTORY: Mother with breast cancer. Aunts with breast cancer. TECHNIQUE: Digital bilateral breast ruperto (3D mammographic acquisition) in the CC and MLO projections. 2-D mediolateral oblique (MLO) and craniocaudad (CC) views of both breasts were obtained. CAD: Full Field Digital Mammography with Computer Added Detection was performed. COMPARISON: Comparison is made with prior study dated May 12, 2022 and May 10, 2021. FINDINGS: Breast Composition: There are scattered areas of fibroglandular density. There are no dominant masses or suspicious calcifications. Stable benign-appearing bilateral axillary lymph nodes. No other significant abnormalities are identified. There has been no significant change since the prior study. BI/SCRN MAMM (CAD)W/RUPERTO BILAT IMPRESSION: Stable bilateral screening mammogram. Yearly follow-up mammogram recommended. (A) ASSESSMENT CATEGORY: BIRADS Category 2: Benign. A letter regarding these results will be sent to the patient by the facility within 30 days. Approximately 10% of breast cancers are not detected by mammography. A normal mammogram should not delay biopsy of a clinically suspicious abnormality. [id number] Electronically Signed: Jorge Paz MD at 13:22 EDT ,
== END | disposition home or self-care (01) ==
LOC: OPBI 12:03
PROVIDERS: PCP Nurse Practitioner Family; Referring Provider Nurse Practitioner Family; Visit Provider Nurse Practitioner Family
DX: Z12.31 Encounter for screening mammogram for malignant neoplasm of breast (principal); Z80.3 Family history of malignant neoplasm of breast
CPT/HCPCS: 77063; 77067

== ENCOUNTER → 2023-12-24 | Outpatient (CLI) | payer MEDICARE, OTHER, SELFPAY ==
[2023-12-24 10:58] LABS: Vitamin D,25 Hydroxy 74.8 ng/mL
[2023-12-24 11:56] LABS: AST(SGOT) 16 U/L (15-37); Alanine Aminotransfer ALT/SGPT 12 U/L (13-56); Albumin, Serum 3.7 g/dL (3.2-5.0); Alkaline Phosphatase 102 U/L (45-117); Anion Gap 7 (5-15); BUN 16 mg/dL (7-18); BUN/Creat Ratio 17.6 RATIO (10-20); Calcium,Total 9.2 mg/dL (8.5-10.1); Chloride 110 mmol/L (98-107); Cholesterol 187 mg/dL (200); Creatinine, Serum 0.91 mg/dL (0.55-1.02); EST Glomerular Filtration Rate 64 mL/min (>60); Est Glom Filt Rate - Afr Amer 78 mL/min (>60); Ferritin 108 ng/mL (8-252); Globulin 3.7 g/dL (2.2-4.2); Glucose 87 mg/dL (74-106); High Density Lipoprotein 53 mg/dL; Magnesium 2.6 mg/dL (1.6-2.6); Potassium 4.6 mmol/L (3.5-5.1); Protein, Total 7.4 g/dL (6.4-8.2); Sodium Level 142 mmol/L (136-145); Thyroid Stim Hormone (TSH) 0.97 uIU/mL (0.358-3.74); Triglycerides 126 mg/dL; Very Low Density Lipoprotein 25 mg/dL (5-40)
== END | disposition home or self-care (01) ==
LOC: LAB 08:25
PROVIDERS: PCP Nurse Practitioner Family; Referring Provider Internal Medicine Endocrinology, Diabetes & Metabolism; Visit Provider Internal Medicine Pulmonary Disease
DX: E78.2 Mixed hyperlipidemia (principal); I48.92 Unspecified atrial flutter; E89.0 Postprocedural hypothyroidism; E55.9 Vitamin D deficiency, unspecified
CPT/HCPCS: 36415; 80053; 80061; 82306; 82728; 83735; 84443

== ENCOUNTER → 2024-05-18 | Outpatient (CLI) | payer MEDICARE, OTHER, SELFPAY ==
--- NOTE | 2024-05-18 12:09 | BI_ITS ---
MAMMOGRAPHY - BILATERAL SCREENING REASON FOR EXAM: Female, 74 years old. Routine annual screening examination. PERTINENT HISTORY: Mother with breast cancer. Aunts with breast cancer. TECHNIQUE: Digital bilateral breast ruperto (3D mammographic acquisition) in the CC and MLO projections. 2-D mediolateral oblique (MLO) and craniocaudad (CC) views of both breasts were obtained. CAD: Full Field Digital Mammography with Computer Added Detection was performed. COMPARISON: Comparison is made with prior study dated May 15, 2023 and May 12, 2022. FINDINGS: Breast Composition: There are scattered areas of fibroglandular density. There are no dominant masses or suspicious calcifications. No other significant abnormalities are identified. There has been no significant change since the prior study. BI/SCRN MAMM (CAD)W/RUPERTO BILAT IMPRESSION: Stable bilateral screening mammogram. Yearly follow-up mammogram recommended. (A) ASSESSMENT CATEGORY: BIRADS Category 1: Negative. A letter regarding these results will be sent to the patient by the facility within 30 days. Approximately 10% of breast cancers are not detected by mammography. A normal mammogram should not delay biopsy of a clinically suspicious abnormality. [id number] Electronically Signed: Jorge Paz MD at 13:28 EDT ,
== END | disposition home or self-care (01) ==
LOC: OPBI 12:09
PROVIDERS: PCP Nurse Practitioner Family; Referring Provider Nurse Practitioner Family; Visit Provider Nurse Practitioner Family
DX: Z12.31 Encounter for screening mammogram for malignant neoplasm of breast (principal); Z80.3 Family history of malignant neoplasm of breast
CPT/HCPCS: 77063; 77067

== ENCOUNTER → 2024-06-21 | Outpatient (CLI) | payer MEDICARE, OTHER, SELFPAY ==
--- NOTE | 2024-06-21 13:45 | RAD_ITS ---
INDICATION: low back pain EXAMINATION/TECHNIQUE: X-RAY - XR Spine Lumbar 2 or 3 Views COMPARISON: Prior study dated: 05/05/2019 FINDINGS: VERTEBRAE: Preserved vertebral body height. No fracture. No spondylolisthesis. Preservation of the normal lumbar lordosis. Diffuse facet arthropathy. DISCS: Disc space narrowing throughout, greatest at L4-L5 and L5-S1. Small endplate osteophytes throughout. INCLUDED ABDOMEN: Included bowel gas pattern is non-obstructive. RAD/Lumbar Spine 2 or 3 Views IMPRESSION: No evidence of lumbar spinal fracture or spondylolisthesis. Mild to moderate degenerative change which has progressed from prior. Electronically Signed: Eusebio Solo MD at 17:14 EDT ,
--- NOTE | 2024-06-21 13:45 | RAD_ITS ---
INDICATION: left hip pain EXAMINATION/TECHNIQUE: X-RAY - XR Hip Unilateral with Pelvis when performed; 2-3 Views COMPARISON: Prior study dated: 08/07/2016 FINDINGS: PELVIC BONES: No displaced fracture, destructive or sclerotic lesions. Note that overlapping bowel shadows may however obscure fine detail. Sacroiliac joints are unremarkable. No widening of the pubic symphysis. HIPS: The hips are well aligned with mild degenerative change. Subchondral sclerosis with small osteophytes noted. No displaced fracture seen in this frontal view. SOFT TISSUES: No soft tissue swelling or gas. RAD/HIP, UNI W/ Pelvis 2-3 Views IMPRESSION: No evidence of displaced pelvic or hip fracture. Mild degenerative changes of the hips. Electronically Signed: Eusebio Solo MD at 17:16 EDT ,
== END | disposition home or self-care (01) ==
LOC: MTRAD 13:45
PROVIDERS: PCP Nurse Practitioner Family; Referring Provider Psychiatry & Neurology Neurology; Visit Provider Psychiatry & Neurology Neurology
DX: M54.50 Low back pain, unspecified (principal); M25.552 Pain in left hip
CPT/HCPCS: 72100; 73502

== ENCOUNTER → 2024-08-06 | Outpatient (CLI) | payer MEDICARE, OTHER, SELFPAY ==
--- OUTSIDE RECORDS SUMMARY | 2024-08-06 07:19 | XMS RPT_ITS | CCD ---
Author Organization [facility] ion Partnership [facility] Care Team Providers Care Chemical Radiation Technician Name Role Phone Sushma Mueller Unavailable Alan Sánchez Unavailable Fast, Cassandra A Unavailable DO NOT USE Unavailable [facility] Unavailable Slarb, Patsy Unavailable Unavailable Latasha Disla Unavailable Unavailable Candi Meehan Unavailable Unavailable Unavailable Unavailable Srikanth Mcgraht Unavailable Unavailable Severo Hudson Unavailable Srikanth Mcgrath Unavailable Unavailable Erica Live Unavailable Unavailable Vikash Avila Unavailable Latasha Disla Unavailable Unavailable Unavailable Unavailable Virginia Walker Unavailable Unavailable Vikash Avila Unavailable Srikanth Bennett Unavailable Unavailable Arti Webb Unavailable Severo Hudson Unavailable Sushma Mueller CNP Unavailable Alan Sánchez Unavailable Austin RICH, Dr. Vikash Ramirez Unavailable Arti Webb Unavailable Fast DO, Cassandra A Unavailable Severo Hudson MD Unavailable DO NOT USE Unavailable [facility] Unavailable Srikanth Bennett LPN Unavailable Unavailable Katelyn Mason LPN Unavailable Unavailable Rissa STEELE Patsy Unavailable Unavailable Latasha Disla RN Unavailable Unavailable Unavailable Unavailable Dr. Damian Hartmann Unavailable Calos STEELE, Erica Unavailable Unavailable Tristan RICH, Severo Mclaughlin Unavailable Alcides STEELE, Srikanth Unavailable Unavailable Aaron RUBIO, Virginia Unavailable Unavailable Keishasavanna SHEL[facility] Primary Care Provider Wibolamichael NANCE, Julián G Unavailable Edvin Armijo MD Unavailable Ami Sushma Unavailable Ciinés Sushma Unavailable Flaco LEON, Joanie Unavailable Unavailable Fast DO, Cassandra A Unavailable Unavailable Unavailable Emmanuelle LEON, Kayela Unavailable Unavailable Malaika Navarro MA Unavailable Unavailable Ky BASS Cindy Unavailable Cieddiea SHELIA, [facility] Primary Care Provider Wipamella , Julián G Unavailable Edvin Armijo MD Unavailable Fast DO, Cassandra A Unavailable Sushma Mueller Attending Unavailable Fast DO, Cassandra A Referring Unavailable Keishaa Sushma Consulting Unavailable [place] [facility] Primary Care Physician DR DAMIAN HARTMANN MD Attending Unavailabl e [facility] Primary Care Unavail able Cammiemichael NANCE Julián G Unavailable Edvin Armijo MD Unavailable Unava ilable [place] [facility] Cindy Primary Care Provider Edvin Armijo MD Unavailable [place] [facility] Cindy Primary Care Provider MARICRUZ ARMSTRONG Attending Unavailable CINDY MCPHERSON [facility] Unavailable CINDY MCPHERSON Primary [facility] Unavailable VIOLA MOSS Referring Unavailable Allergies Allergy Classification Reported Allergen(s) Allergy Type Date of Onset Reaction(s) Facility Cholesterol Absorption Inhibitors (1 source) ezetimibe; Translations: [Zetia *ANTIHYPERLIPID EMICS*] Drug Allergy [facility]; [facility] Work Phone: HMG-CoA Reductase Inhibitors (statins) (2 sources) rosuvastatin; Translations: [Crestor *ANTIHYPERLIPID EMICS*] Drug Allergy [facility]; [facility] Work Phone: (20 sources) atorvastatin; Translations: [Lipitor *ANTIHYPERLIPID EMICS*] Drug Allergy 0 Myalgia [facility] Work Phone: (20 sources) ezetimibe; Translations: [Zetia *ANTIHYPERLIPID EMICS*] Drug Allergy 0 Myalgia [facility] Work Phone: Comment on above: myalgia (20 sources) rosuvastatin; Translations: [Crestor *ANTIHYPERLIPID EMICS*] Drug Allergy 0 Unknown, Myalgia [facility] Work Phone: (20 sources) Codeine/Codeine Derivatives; Translations: [Codeine/Codein e Derivatives] allergy to substance [facility] Work Phone: Comment on above: chest pain and head (6 sources) Codeine; Translations: [CODEINE] Drug Allergy 0 Unknown [facility] (1 source) Bleach Allergy to substance tightness of throat [facility] (1 source) atorvastatin; Translations: [ATORVASTATIN] Drug Allergy 0 [facility] (1 source) ezetimibe; Translations: [EZETIMIBE] Drug Allergy 0 [facility] (1 source) rosuvastatin; Translations: [ROSUVASTATIN] Drug Allergy 0 [facility] Medications Current Medications Medication Drug Class(es) Dates Sig (Normalized) Sig (Original) ascorbic acid 500 mg oral tablet (5 sources) Vitamin C take 1 tablet by mouth once daily ascorbic acid, vitamin C, (VITAMIN C) 500 mg tablet Take 500 mg by mouth once daily. 0 Active Comment on above: Take 500 mg by mouth once daily. aspirin 81 mg delayed release oral tablet (20 sources) Platelet Aggregation Inhibitor, Nonsteroidal Anti-inflammatory Drug Start: 04-27-2013 aspirin 81 mg oral delayed release tablet Dose : 81 mg = 1 tab(s), Oral, Daily, 0 Refill(s) Start Date: 04/27/13 Status: Ordered Comment on above: Take 81 mg by mouth once daily. calcium citrate 500 mg oral tablet (1 source) Start: 3 take 1 tablet by mouth twice daily Citracal 500 mg oral tablet Dose : 500 mg =, Oral, BID, 0 Refill(s) Start Date: 08/21/23 Status: Ordered carbidopa 25 mg / levodopa 100 mg oral tablet (20 sources) Aromatic Amino Acid Decarboxylation Inhibitor, Aromatic Amino Acid Start: 1 Start: 10-21-2019 take 1 tablet by ailin th three times daily carbidopa-levodopa (SINEMET 25-100) 25-100 mg per tablet Take 1 tablet by mouth three times daily. 0 10/21/2019 Active Start: 10-14-2019 Comment on above: rx by Carito Take 1 tablet by ailin th three times daily. ferrous sulfate 325 mg oral tablet (5 sources) take 1 tablet by mouth once daily at breakfast ferrous sulfate (IRON) 325 mg (65 mg iron) tablet Take 325 mg by mouth daily with breakfast. 0 Active Comment on above: Take 325 mg by mouth daily with breakfast. Fish Oils (1 source) Start: 3 Fish Oil 1200 mg oral capsule Dose : 1,200 mg = 1 cap(s), Oral, Daily, 0 Refill(s) Start Date: 04/27/13 Status: Ordered levothyroxine sodium 0.125 mg oral tablet (20 sources) l-Thyroxine Start: 3 levothyroxine 125 mcg (0.125 mg) oral tablet Dose : 125 mcg = 1 tab(s), Oral, qDayAC, 0 Refill(s) Start Date: 08/21/23 Status: Ordered Start: 08-21-2017 Start: 08-21-2017 Comment on above: Mail order. levothyroxine 112 mcg tab 112 mcg, levothyroxine 25 mcg tab 25 mcg (5 sources) take 1 tablet by mouth once daily, then take 6 tablets by mouth in the morning levothyroxine 112 mcg tab 112 mcg, levothyroxine 25 mcg tab 25 mcg Take 1 tablet by mouth DAILY (6 AM). 0 Active Comment on above: Take 1 tablet by ailin Comment on above: [facility] [address] [place], [place], [id number] Comprehensive metabolic 2000 panel 12 U/L Abnormal 15-37 [facility] Work Phone: Comment on above: [facility] [address] [place], [place], [id number] Comprehensive metabolic 2000 panel 1.1 {RATIO} Normal 0.9-2.4 Compre[facility] Work Phone: Comment on above: [facility] [address] [place], [place], [id number] Comprehensive metabolic 2000 panel 0.79 mg/dL Normal 0.55-1.02 Compre[facility] Work Phone: Comment on above: The validity of the calculated GFR AND GFRAA in patients over70 years has not been determined. Clinical correlation isessential. [facility] [address] [place], [place], [id number] Comprehensive metabolic 2000 panel 3.9 g/dL Normal 3.4-5.0 Compre[facility] Work Phone: Comment on above: [facility] [address] [place], [place], [address] Comprehensive metabolic 2000 panel 7.6 g/dL Normal 6.4-8.2 Compre[facility] Work Phone: Comment on above: [facility] [address] [place], [place], [phone] Comprehensive metabolic 2000 panel 10.1 {RATIO} Normal 10-20 Comprehensi ve Internal Medicine Work Phone: Comment on above: [facility] [address] [place], [place], [id number] Comprehensive metabolic 2000 panel 93 mL/min Normal Comprehensi ve Internal Medicine Work Phone: Comment on above: GFR Calc [facility] [address] [place], [place], [id number] Comprehensive metabolic 2000 panel 77 mL/min Normal Comprehensi ve Internal Medicine Work Phone: Comment on above: Non- GFR Calc [facility] [address] [place], [place], [id number] Comprehensive metabolic 2000 panel 8.8 mg/dL Normal 8.5-10.1 Comprehensi ve [facility] Work Phone: Comment on above: [facility] [address] [place], [place], [id number] Comprehensive metabolic 2000 panel 8 mg/dL Normal 7-18 Comprehensi ve Internal Medicine Work Phone: Comment on above: [facility] [address] [place], [place], [id number] Comprehensive metabolic 2000 panel 82 mg/dL Normal 70-110 Comprehensi ve Internal Medicine Work Phone: Comment on above: [facility] [address] [place], [place], [address] Comprehensive metabolic 2000 panel 7 1 Normal 5-15 Compre[facility]si ve [facility] Work Phone: Comment on above: [facility] [address] [place], [place], [phone] Thyroid Stim Hormone (TSH)Or dered By: Restoration Ecologist on 02-06-2017 Thyrotropin Qn 1.11 {uIU/mL} Normal 0.358-3.74 Compreh ensive Internal Medicine Work Phone: Comment on above: [facility] [address] [place], [place], [address] Vitamin K11Yrxftjx By: Romulo mclaughlin Ship Fitter on 02-06-2017 Cobalamin (Vitamin B12) mass conc 1147 pg/mL Abnormal 211-911 [facility] Work Phone: Comment on above: ADDENDA: another doc [facility] [address] [place], [address] CALCIFEDIOL ([id number])Ordered B y: Restoration Ecologist on 11-05-2016 25-Hydroxyvitamin D2+25-Hydroxyvitamin D3 mass conc 67.0 ng/mL Normal 30.0-100.0 [facility] Work Phone: Comment on above: Vitamin D deficiency has been defined by the [place] and an Endocrine Society practice guideline as alevel of serum 25-OH vitamin D less than 20 ng/mL (1,2).The Endocrine Society went on to further define vitamin Dinsufficiency as a level between 21 and 29 ng/mL (2).1. IOM ([place]). 2010. Dietary reference intakes for calcium and D. [place]: The National Academies Press.2. Hernesto MF, Carolyn NC, Christoph AYOUB, et al. Evaluation, treatment, and prevention of vitamin D deficiency: an Endocrine Society clinical practice guideline. JCEM. 2010; 96(7):1911-30. PATIENT WAS FASTINGP ERFORMED BY: [employer]70 [facility] IDFormerly [facility], [facility] [id number] CBC, PLATELETS & AUT DIFF (8 [id number])Ordered By: Restoration Ecologist on 11-05-2016 Basophils #/vol (Bld) 0.1 {x10E3/uL} Normal 0.0-0.2 [facility] Work Phone: Comment on above: PATIENT WAS FASTINGP ERFORMED BY: Hitch6370 [facility], [facility] [id number] Basophils (Bld) [#/Vol] 0.1 10*3/uL Normal 0.0-0.2 [facility] Work Phone: Basophils/100 WBC (Bld) 1 % Normal [facility] Work Phone: Comment on above: PATIENT WAS FASTINGP ERFORMED BY: [employer] [facility], [facility] [id number] Eosinophils #/vol (Bld) 0.2 {x10E3/uL} Normal 0.0-0.4 [facility] Work Phone: Comment on above: PATIENT WAS FASTINGP ERFORMED BY: MONICA [facility] Tisqdo9048 [facility] [id number] Eosinophils (Bld) [#/Vol] 0.2 10*3/uL Normal 0.0-0.4 [facility] Work Phone: Eosinophils/100 WBC (Bld) 2 % Normal [facility] Work Phone: Comment on above: PATIENT WAS FASTINGP ERFORMED BY: [facility]6[address] [facility] [id number] Erythrocyte distribution width Ratio (RBC) 14.0 % Normal 12.3-15.4 [facility] Work Phone: Comment on above: PATIENT WAS FASTINGP ERFORMED BY: [facility]6[address] [facility] [id number] Hematocrit Volume Fraction (Bld) 40.7 % Normal 34.0-46.6 [facility] Work Phone: Comment on above: PATIENT WAS FASTINGP ERFORMED BY: [facility] Mzdswz5137 [facility] [id number] Hemoglobin mass conc (Bld) 13.8 g/dL Normal 11.1-15.9 [facility] Work Phone: Comment on above: PATIENT WAS FASTINGP ERFORMED BY: [facility]6[address] [facility] [id number] Immature granulocytes #/vol (Bld) 0.0 {x10E3/uL} Normal 0.0-0.1 [facility] Work Phone: Comment on above: PATIENT WAS FASTINGP ERFORMED BY: [facility]6[address] [facility] [id number] Immature granulocytes (Bld) [#/Vol] 0.0 10*3/uL Normal 0.0-0.1 [facility] Work Phone: Immature granulocytes/100 WBC (Bld) 0 % Normal [facility] Work Phone: Comment on above: PATIENT WAS FASTINGP ERFORMED BY: MONICA LabAurea TateDavhbb[address] [facility] [id number] Lymphocytes #/vol (Bld) 2.3 {x10E3/uL} Normal 0.7-3.1 [facility] Work Phone: Comment on above: PATIENT WAS FASTINGP ERFORMED BY: [employer] Ehpjvj8388 [facility] [id number] Lymphocytes (Bld) [#/Vol] 2.3 10*3/uL Normal 0.7-3.1 [facility] Work Phone: Lymphocytes/100 WBC (Bld) 32 % Normal [facility] Work Phone: Comment on above: PATIENT WAS FASTINGP ERFORMED BY: MONICA [facility] Vdcwmn0245 [facility] [id number] MCH Entitic mass (RBC) 30.7 pg Normal 26.6-33.0 [facility] Work Phone: Comment on above: PATIENT WAS FASTINGP ERFORMED BY: MONICA [facility] Teekqa4444 [facility] [id number] MCHC mass conc (RBC) 33.9 g/dL Normal 31.5-35.7 [facility] Internal Medicine Work Phone: Comment on above: PATIENT WAS FASTINGP ERFORMED BY: MONICA [facility]Saint [facility] Kiftmf5642 [facility] [id number] MCV Entitic volume (RBC) 91 fL Normal 79-97 [facility] Work Phone: Comment on above: PATIENT WAS FASTINGP ERFORMED BY: MONICA [employer] Gjlijx[address] [facility] [id number] Monocytes #/vol (Bld) 0.4 {x10E3/uL} Normal 0.1-0.9 [facility] Work Phone: Comment on above: PATIENT WAS FASTINGP ERFORMED BY: MONICA [facility] Rbkmbg5171 [facility] [id number] Monocytes (Bld) [#/Vol] 0.4 10*3/uL Normal 0.1-0.9 [facility] Work Phone: Monocytes/100 WBC (Bld) 5 % Normal [facility] Work Phone: Comment on above: PATIENT WAS FASTINGP ERFORMED BY: [facility] Xveoks8609 [address]ini RoadDublin [place] [id number] Neutrophils #/vol (Bld) 4.2 {x10E3/uL} Normal 1.4-7.0 [facility] Work Phone: Comment on above: PATIENT WAS FASTINGP ERFORMED BY: [facility] Skxgpe5241 [address] RoadDublin [place] [id number] Neutrophils (Bld) [#/Vol] 4.2 10*3/uL Normal 1.4-7.0 [facility] Work Phone: Neutrophils/100 WBC (Bld) 60 % Normal [facility] Work Phone: Comment on above: PATIENT WAS FASTINGP ERFORMED BY: [facility] Nwxvvf5656 [address] RoadDublin [place] [id number] Platelets #/vol (Bld) 310 {x10E3/uL} Normal 150-379 [facility] Work Phone: Comment on above: PATIENT WAS FASTINGP ERFORMED BY: [facility] Bgtrqx6640 [address] RoadDublin [place] [id number] Platelets (Bld) [#/Vol] 310 10*3/uL Normal 150-379 [facility] Work Phone: RBC #/vol (Bld) 4.49 {x10E6/uL} Normal 3.77-5.28 [facility] Internal Medicine Work Phone: Comment on above: PATIENT WAS FASTINGP ERFORMED BY: [facility] Ucrvjc5042 [address]ini RoadDublin [place] [id number] RBC (Bld) [#/Vol] 4.49 10*6/uL Normal 3.77-5.28 [facility] Internal Medicine Work Phone: WBC #/vol (Bld) 7.1 {x10E3/uL} Normal 3.4-10.8 [facility] Internal Medicine Work Phone: Comment on above: PATIENT WAS FASTINGP ERFORMED BY: MONICA [facility] Fmxwzd0161 [address] RoadDublin [place] [id number] WBC (Bld) [#/Vol] 7.1 10*3/uL Normal 3.4-10.8 [facility] Internal Medicine Work Phone: METABOLIC PANEL, COMPREHENSI VE ([id number])Ordered By: Restoration Ecologist on 11-05-2016 Albumin mass conc 4.5 g/dL Normal 3.6-4.8 [facility] Internal Medicine Work Phone: Comment on above: PATIENT WAS FASTINGP ERFORMED BY: MONICA [facility] Cerlck0775 [address] RoadDublin [place] [id number] Albumin/Globulin mass ratio 1.8 {ratio} Normal 1.1-2.5 [facility] Internal Medicine Work Phone: Comment on above: PATIENT WAS FASTINGP ERFORMED BY: MONICA [facility] Xljxdq1812 [address] Roadblin [place] [id number] ALP [Catalytic activity/Vol] 101 U/L Normal 39-117 [facility] Internal Medicine Work Phone: ALP enzyme act/vol 101 [iU]/L Normal 39-117 [facility] Internal Medicine Work Phone: Comment on above: PATIENT WAS FASTINGP ERFORMED BY: [facility] Xykdma8372 [address] RoadDublin [place] [id number] ALT [Catalytic activity/Vol] 15 U/L Normal 0-32 [facility] Work Phone: ALT enzyme act/vol 15 [iU]/L Normal 0-32 [facility] Internal Medicine Work Phone: Comment on above: PATIENT WAS FASTINGP ERFORMED BY: [facility] Agudzp8553 [address] RoadDublin [place] [id number] AST [Catalytic activity/Vol] 12 U/L Normal 0-40 [facility] Work Phone: AST enzyme act/vol 12 [iU]/L Normal 0-40 Compre [facility] Internal Medicine Work Phone: Comment on above: PATIENT WAS FASTINGP ERFORMED BY: MONICA LabColisa JuanMlvyuh0681 [address] [facility] [place] [id number] Bilirubin mass conc 0.3 mg/dL Normal 0.0-1.2 Compr ensive Internal Medicine Work Phone: Comment on above: PATIENT WAS FASTINGP ERFORMED BY: MONICA LabColisa Ttykiu9380 [address] [facility] [id number] Calcium mass conc 10.0 mg/dL Normal 8.7-10.3 Compreh ensive Internal Medicine Work Phone: Comment on above: PATIENT WAS FASTINGP ERFORMED BY: MONICA LabAurea TatePeiigm8736 [facility] [id number] Chloride molar conc 103 mmol/L Normal 96-106 Compr [facility] Internal Medicine Work Phone: Comment on above: PATIENT WAS FASTINGP ERFORMED BY: MONICA LabAurea TateGzoxpx8612 [facility] [id number] CO2 molar conc 24 mmol/L Normal 18-29 Comprehens lucio Internal Medicine Work Phone: Comment on above: PATIENT WAS FASTINGP ERFORMED BY: MONICA Tatelin6370 [facility] [id number] Creatinine mass conc 0.84 mg/dL Normal 0.57-1.00 Comp [facility] Internal Medicine Work Phone: Comment on above: PATIENT WAS FASTINGP ERFORMED BY: MONICA [facility] Mqehal[address] [facility] [id number] GFR/1.73 sq M predicted among blacks CKD-EPI vol rate/area (S/P/Bld) 84 mL/min/1.73 Normal Comprehensiv e Internal Medicine Work Phone: Comment on above: PATIENT WAS FASTINGP ERFORMED BY: [facility] Gkdoqp6544 [address] [facility] [place] [id number] GFR/1.73 sq M predicted among non-blacks CKD-EPI vol rate/area (S/P/Bld) 73 mL/min/1.73 Normal [facility] Work Phone: Comment on above: PATIENT WAS FASTINGP ERFORMED BY: MONICA LabColisa Yanlve9342 [address] [facility] [place] [id number] Globulin mass conc (S) 2.5 g/dL Normal 1.5-4.5 [facility] Work Phone: Comment on above: PATIENT WAS FASTINGP ERFORMED BY: MONICA [facility] Oaxyoc3881 [address] [facility] [id number] Glucose mass conc 88 mg/dL Normal 65-99 Compreh ensive Internal Medicine Work Phone: Comment on above: PATIENT WAS FASTINGP ERFORMED BY: MONICA LabAurea TateLxqwjh6536 [address] [facility] [id number] Potassium molar conc 5.0 mmol/L Normal 3.5-5.2 Comp rehensive Internal Medicine Work Phone: Comment on above: PATIENT WAS FASTINGP ERFORMED BY: MONICA Tatelin[address] [facility] [place] [id number] Protein mass conc 7.0 g/dL Normal 6.0-8.5 Compreh ensive Internal Medicine Work Phone: Comment on above: PATIENT WAS FASTINGP ERFORMED BY: MONICA Tatelin6[address] [facility] [id number] Sodium molar conc 142 mmol/L Normal 134-144 Compreh ensive Internal Medicine Work Phone: Comment on above: PATIENT WAS FASTINGP ERFORMED BY: MONICA [facility] Tpxoqn7393 [address] [facility] [place] [id number] Urea nitrogen mass conc 13 mg/dL Normal 8-27 [facility] Work Phone: Comment on above: PATIENT WAS FASTINGP ERFORMED BY: MONICA [facility] Itqadq9701 [address] [facility] [place] [id number] Urea nitrogen/Creatinine mass ratio 15 mg/mg Normal 11-26 [facility] Work Phone: Comment on above: PATIENT WAS FASTINGP ERFORMED BY: [employer] Blddlg[address] [facility] [place] [id number] MICROALBUMINOrdered By: Syst em Ship Fitter on 11-05-2016 Albumin DL <= 20 mg/L mass conc (U) 5.2 ug/mL Normal [facility] Work Phone: Comment on above: PATIENT WAS FASTINGP ERFORMED BY: [employer] Csbgpl2321 [address] RoadDublin [place] [id number] Albumin/Creatinine mass ratio (U) 8.0 {mg/g_creat} Normal 0.0-30.0 [facility] Work Phone: Comment on above: PATIENT WAS FASTINGP ERFORMED BY: [employer] Lab[employer] Samuoc2618 [address] RoadDublin [place] [id number] Creatinine mass conc (U) 65.0 mg/dL Normal [facility] Work Phone: Comment on above: PATIENT WAS FASTINGP ERFORMED BY: Hitch6370 [address] RoadDublin [place] [id number] VITAMIN B12 AND FOLATES (826 07)Ordered By: Restoration Ecologist on 11-05-2016 Cobalamin (Vitamin B12) mass conc 773 pg/mL Normal 211-946 [facility] Work Phone: Comment on above: PATIENT WAS FASTINGP ERFORMED BY: [employer] Isujom[address] [employer] World EducationDublin [place] [id number] Folate mass conc 16.8 ng/mL Normal Comprehe nsive Internal Medicine Work Phone: Comment on above: A serum folate sarai ntration of less than 3.1 ng/mL isconsidered to represent clinical deficiency. PATIENT WAS FASTINGP ERFORMED BY: [employer] Mhngix[address] [facility] [place] [id number] COLON BIOPSY (CHOOSE SITE)Or dered By: Restoration Ecologist on 07-07-2016 COLON BIOPSY (CHOOSE SITE) See Note Normal [facility] Work Phone: Comment on above: Patient: ANGELICA GARCIA : 1950 (66/F) Acct Num: [id number] Phys: Damian Hartmann Unit Num: [id number] Loc: LABSPEC Specimen: [id number] Received: 07/07/16 - 1608 Spec Type: COLON BX TISSUES TISSUES: GROSS DESCRIPTION Received is one container labeled with the patient's name and designated polyp mid ascending colon. The specimen consists of a polypoid fragment of greene tissue measuring 1 x 0.8 x 0.6 cm. The presumed margin of resection is inked. The specimen is bisected and totally submitted in one cassette. / AM: 07/08/16 TC:5 CPT:97160 HEADER OPERATION: Colonoscopy with polypectomy PRE-OP DIAGNOSIS: Screening/polyp TISSUE SUBMITTED: Polypectomy, mid ascending colon, rule out adenoma MICROSCOPIC DESCRIPTION Slides are reviewed. MICROSCOPIC DIAGNOSIS Mid ascending colon polyp, polypectomy: Hyperplastic polyp. AM: 07/09/16 Signed Aries Kiran 07/09/16 [facility] [facility] [address] [place], [place], [id number] Basic Metabolic Profile (BMP )Ordered By: Restoration Ecologist on 06-18-2016 Basic metabolic 2000 panel 66 mL/min Normal [facility] Work Phone: Comment on above: Non- GFR Calc [place] [address] [place], [place], [id number] Basic metabolic 2000 panel 10 mg/dL Normal 7-18 [facility] Work Phone: Comment on above: [facility] [address] [place], [place], [id number] Basic metabolic 2000 panel 30.0 mmol/L Normal 21.0-32.0 [facility] Work Phone: Comment on above: [facility] [address] [place], [place], [id number] Basic metabolic 2000 panel 0.90 mg/dL Normal 0.55-1.20 [facility] Work Phone: Comment on above: The validity of the calculated GFR AND GFRAA in patients over70 years has not been determined. Clinical correlation isessential. [facility] [address] [place], [address] Basic metabolic 2000 panel 121 mg/dL Abnormal 70-110 [facility] Work Phone: Comment on above: Fasting Glucose resu lt from 110 to <126 mg/dLsuggests IMPAIRED HOMEOSTASIS per A.D.A. criteria. [facility] [address] [place], [address] Basic metabolic 2000 panel 80 mL/min Normal [facility] Work Phone: Comment on above: GFR Calc [facility] [address] [place], [place], [id number] Basic metabolic 2000 panel 11.1 {RATIO} Normal 10-20 [facility] Work Phone: Comment on above: [facility] [address] [place], [place], [id number] Basic metabolic 2000 panel 9.6 mg/dL Normal 8.5-10.1 [facility] Work Phone: Comment on above: [facility] [address] [place], [address] Basic metabolic 2000 panel 141 mmol/L Normal 136-145 [facility] Work Phone: Comment on above: [facility] [address] [place], [place], [id number] Basic metabolic 2000 panel 4.4 mmol/L Normal 3.5-5.1 [facility] Work Phone: Comment on above: [facility] [address] [place], [place], [id number] Basic metabolic 2000 panel 106 mmol/L Normal 98-107 [facility] Work Phone: Comment on above: [facility] [address] [place], [place], [phone] Basic metabolic 2000 panel 5 1 Normal 5-15 [facility] Work Phone: Comment on above: [facility] [address] [place], [place], [address] MagnesiumOrdered By: Restoration Ecologist on 06-18-2016 Magnesium mass conc 2.2 mg/dL Normal 1.8-2.4 Compr ehensive Internal Medicine Work Phone: Comment on above: [facility] [address] [place], [place], [phone] Thyroid Stim Hormone (TSH)Or dered By: Restoration Ecologist on 06-18-2016 Thyrotropin Qn 1.34 {uIU/mL} Normal 0.358-3.74 Compreh ensive Internal Medicine Work Phone: Comment on above: [facility] [address] [place], [address] Blood Glucose , Office ([phone])Ordered By: Riddhi Tapia on 03-05-2016 Glucose Glucometer molar conc (BldC) 133 1 Normal [facility] Work Phone: Thyroid Stim Hormone (TSH)Or dered By: Restoration Ecologist on 12-18-2015 Thyrotropin Qn 6.07 {uIU/mL} Abnormal 0.358-3.74 Compreh ensive Internal Medicine Work Phone: Comment on above: ADDENDA: handled by caryn [facility] [address] [place], [place], [phone] Comprehensive Metabolic Prof ilOrdered By: Restoration Ecologist on 10-06-2015 Comprehensive metabolic 2000 panel 3.8 g/dL Normal 3.4-5.0 Comprehensi ve Internal Medicine Work Phone: Comment on above: [facility] [address] [place], [place], [id number] Comprehensive metabolic 2000 panel 21 U/L Normal 12-78 Comprehensi ve Internal Medicine Work Phone: Comment on above: [facility] [address] [place], [place], [address] Comprehensive metabolic 2000 panel 105 mmol/L Normal 98-107 Comprehensi ve Internal Medicine Work Phone: Comment on above: [facility] [address] [place], [place], [address] Comprehensive metabolic 2000 panel 4.0 mmol/L Normal 3.5-5.1 Comprehensi ve Internal Medicine Work Phone: Comment on above: [facility] [address] [place], [address] Comprehensive metabolic 2000 panel 139 mmol/L Normal 136-145 Comprehensi ve Internal Medicine Work Phone: Comment on above: [facility] [address] [place], [address] Comprehensive metabolic 2000 panel 0.40 mg/dL Normal 0.20-1.00 Comprehensi ve Internal Medicine Work Phone: Comment on above: [facility] [address] [place], [place], [phone] Comprehensive metabolic 2000 panel 101 U/L Normal 50-136 Comprehensi ve Internal Medicine Work Phone: Comment on above: [facility] [address] [place], [address] Comprehensive metabolic 2000 panel 15 U/L Normal 15-37 Comprehensi ve Internal Medicine Work Phone: Comment on above: [facility] [address] [place], [place], [address] Comprehensive metabolic 2000 panel 1.0 {RATIO} Normal 0.9-2.4 Comprehensi ve Internal Medicine Work Phone: Comment on above: [facility] [address] [place], [address] Comprehensive metabolic 2000 panel 3.9 g/dL Abnormal 2.3-3.5 Comprehensi ve Internal Medicine Work Phone: Comment on above: [facility] [address] [place], [place], [address] Comprehensive metabolic 2000 panel 24.0 mmol/L Normal 21.0-32.0 Comprehensi ve Internal Medicine Work Phone: Comment on above: [facility] [address] [place], [place], [phone] Comprehensive metabolic 2000 panel 7.7 g/dL Normal 6.4-8.2 Comprehensi ve Internal Medicine Work Phone: Comment on above: [facility] [address] [place], [place], [phone] Comprehensive metabolic 2000 panel 11.5 {RATIO} Normal 10-20 Comprehensi ve Internal Medicine Work Phone: Comment on above: [facility] [address] [place], [place], [id number] Comprehensive metabolic 2000 panel 84 mL/min Normal Comprehensi ve Internal Medicine Work Phone: Comment on above: GFR Calc [facility] [address] [place], [place], [phone] Comprehensive metabolic 2000 panel 69 mL/min Normal Comprehensi ve Internal Medicine Work Phone: Comment on above: Non- GFR Calc [facility] [address] [place], [place], [id number] Comprehensive metabolic 2000 panel 0.87 mg/dL Normal 0.55-1.20 Comprehensi ve Internal Medicine Work Phone: Comment on above: The validity of the calculated GFR AND GFRAA in patients over70 years has not been determined. Clinical correlation isessential. [facility] [address] [place], [place], [phone] Comprehensive metabolic 2000 panel 10 mg/dL Normal 7-18 Comprehensi ve Internal Medicine Work Phone: Comment on above: [facility] [address] [place], [place], [phone] Comprehensive metabolic 2000 panel 85 mg/dL Normal 70-110 Comprehensi ve Internal Medicine Work Phone: Comment on above: [facility] [address] [place], [address] Comprehensive metabolic 2000 panel 8.9 mg/dL Normal 8.5-10.1 Comprehensi ve Internal Medicine Work Phone: Comment on above: [facility] [address] [place], [id number] Comprehensive metabolic 2000 panel 10 1 Normal 5-15 Comprehensi ve Internal Medicine Work Phone: Comment on above: [facility] [address] [place], [id number] MagnesiumOrdered By: Restoration Ecologist on 10-06-2015 Magnesium mass conc 1.8 mg/dL Normal 1.8-2.4 Compr ehensive Internal Medicine Work Phone: Comment on above: [facility] [address] [place], [place], [id number] PTH,INTACTOrdered By: Restoration Ecologist on 10-06-2015 PTH,INTACT 16 pg/mL Normal 14-72 [facility] Work Phone: Comment on above: [facility] [address] [place], [place], [address] Thyroid Stim Hormone (TSH)Or dered By: Restoration Ecologist on 10-06-2015 Thyrotropin Qn 3.98 {uIU/mL} Abnormal 0.358-3.74 Compreh ensive Internal Medicine Work Phone: Comment on above: [facility] [address] [place], [address] Vitamin D,25 HydroxyOrdered By: Restoration Ecologist on 10-06-2015 Vitamin D,25 Hydroxy 55.0 ng/mL Normal Comp rehensive Internal Medicine Work Phone: Comment on above: Vitamin D 25(OH) Sta tus Range Deficiency <20 ng/mL (50nmol/L) Insuffciency 20 - 30 ng/mL (50 - 75 nmol/L) Sufficiency 30 - 100 ng/mL (75 - 250 nmol/L) Toxicity >100 ng/mL (>250 nmol/L) [facility] [address] [place], [place], [id number] Comprehensive Metabolic Prof ilOrdered By: Restoration Ecologist on 06-14-2015 Comprehensive metabolic 2000 panel 7 1 Normal 5-15 Comprehensi ve Internal Medicine Work Phone: Comment on above: Test performed at:[facility] [address] [place] [address] Comprehensive metabolic 2000 panel 29.0 mmol/L Normal 21.0-32.0 Comprehensi ve Internal Medicine Work Phone: Comment on above: Test performed at:[facility] [address] [place] [address] Comprehensive metabolic 2000 panel 104 mmol/L Normal 98-107 Comprehensi ve Internal Medicine Work Phone: Comment on above: Test performed at:[facility] [address] [place] [address] Comprehensive metabolic 2000 panel 4.2 mmol/L Normal 3.5-5.1 Comprehensi ve Internal Medicine Work Phone: Comment on above: Test performed at:[facility] [address] [place] [address] Comprehensive metabolic 2000 panel 140 mmol/L Normal 136-145 Comprehensi ve Internal Medicine Work Phone: Comment on above: Test performed at:[facility] [address] [place] [address] Comprehensive metabolic 2000 panel 0.60 mg/dL Normal 0.20-1.00 Comprehensi ve Internal Medicine Work Phone: Comment on above: Test performed at:[facility] [address] [place] [address] Comprehensive metabolic 2000 panel 28 U/L Normal 12-78 Comprehensi ve Internal Medicine Work Phone: Comment on above: Test performed at:[facility] [address] [place] [address] Comprehensive metabolic 2000 panel 98 U/L Normal 50-136 Comprehensi ve Internal Medicine Work Phone: Comment on above: Test performed at:[facility] [address] [place] [address] Comprehensive metabolic 2000 panel 17 U/L Normal 15-37 Comprehensi ve Internal Medicine Work Phone: Comment on above: Test performed at:[facility] [address] [place], [place] [phone] Comprehensive metabolic 2000 panel 9.2 mg/dL Normal 8.5-10.1 Comprehensi ve Internal Medicine Work Phone: Comment on above: Test performed at:[facility] [address] [place], [place] [id number] Comprehensive metabolic 2000 panel 1.1 {RATIO} Normal 0.9-2.4 Comprehensi ve Internal Medicine Work Phone: Comment on above: Test performed at:[facility] [address] [place] [address] Comprehensive metabolic 2000 panel 3.8 g/dL Abnormal 2.3-3.5 Comprehensi ve Internal Medicine Work Phone: Comment on above: Test performed at:[facility] [address] [place] [address] Comprehensive metabolic 2000 panel 4.1 g/dL Normal 3.4-5.0 Comprehensi ve Internal Medicine Work Phone: Comment on above: Test performed at:[facility] [address] [place] [address] Comprehensive metabolic 2000 panel 7.9 g/dL Normal 6.4-8.2 Comprehensi ve Internal Medicine Work Phone: Comment on above: Test performed at:[facility] [address] [place] [address] Comprehensive metabolic 2000 panel 14.8 {RATIO} Normal 10-20 Comprehensi ve Internal Medicine Work Phone: Comment on above: Test performed at:[facility] [address] [place] [address] Comprehensive metabolic 2000 panel 91 mL/min Normal Comprehensi ve Internal Medicine Work Phone: Comment on above: Test performed at:[facility] [address] [place] [address] Comprehensive metabolic 2000 panel 75 mL/min Normal Comprehensi ve Internal Medicine Work Phone: Comment on above: Test performed at:[facility] [address] [place], [place] [id number] Comprehensive metabolic 2000 panel 0.81 mg/dL Normal 0.55-1.20 Comprehensi ve Internal Medicine Work Phone: Comment on above: Please note revised CREATININE reference range kjrtvinnh44/22/2015. Test performed at:[facility] [address] [place], [place] [id number] Comprehensive metabolic 2000 panel 12 mg/dL Normal 7-18 Comprehensi ve Internal Medicine Work Phone: Comment on above: Test performed at:[facility] [address] [place] [address] Comprehensive metabolic 2000 panel 87 mg/dL Normal 70-110 Comprehensi ve Internal Medicine Work Phone: Comment on above: Test performed at:[facility] [address] [place], [place] [id number] FerritinOrdered By: Viktor santos on 06-14-2015 Ferritin mass conc 134 ng/mL Normal 8-252 Compre hensive Internal Medicine Work Phone: Comment on above: Test performed at:[facility] [address] [place] [id number] IronOrdered By: System Manag er on 06-14-2015 Iron mass conc 95 ug/dL Normal 50-170 Comprehens lucio Internal Medicine Work Phone: Comment on above: Test performed at:[facility] [address] [place] [phone] MagnesiumOrdered By: Restoration Ecologist on 06-14-2015 Magnesium mass conc 2.1 mg/dL Normal 1.8-2.4 Compr ehensive Internal Medicine Work Phone: Comment on above: Test performed at:[facility] [address] [place] [id number] Thyroid Stim Hormone (TSH)Or dered By: Restoration Ecologist on 06-14-2015 Thyrotropin Qn 2.84 {uIU/mL} Normal 0.358-3.74 Compreh ensive Internal Medicine Work Phone: Comment on above: Test performed at:[facility] [address] [place] [address] Vitamin H01Dzbqerc By: DoubleBeamad Crowdability Ship Fitter on 06-14-2015 Cobalamin (Vitamin B12) mass conc 363 pg/mL Normal 211-911 [facility] Work Phone: Comment on above: Test performed at:[facility] [address] [place], [place] [id number] CBC W/Diff, AutomatedOrdered By: Restoration Ecologist on 05-04-2015 Absolute Neut 2.6 {X10_3/uL} Normal 2.0-7.7 Compreh ensive Internal Medicine Work Phone: Comment on above: Test performed at:[facility] [address] [place] [address] Basophils/100 WBC (Bld) 1.0 % Normal 0-1 [facility] Work Phone: Comment on above: Test performed at:[facility] [address] [place] [address] Eosinophils/100 WBC (Bld) 2.9 % Normal 0-5 [facility] Work Phone: Comment on above: Test performed at:[facility] [address] [place] [address] Erythrocyte distribution width Ratio (RBC) 13.5 % Normal 11.6-14.6 [facility] Work Phone: Comment on above: Test performed at:[facility] [address] [place] [address] Hematocrit Volume Fraction (Bld) 42.1 % Normal 37-47 [facility] Work Phone: Comment on above: Test performed at:[facility] [address] [place] [address] Hemoglobin mass conc (Bld) 14.6 g/dL Normal 12.0-15.0 [facility] Work Phone: Comment on above: Test performed at:[facility] [address] [place] [address] IM GRAN % 0.200 % Normal 0.0-0.9 [facility] Work Phone: Comment on above: IG% - Immature Granu locytes (promyelocytes, myelocytes andmetamyelocytes) > 1% indicates that a LEFT SHIFT is Present. Test performed at:[facility] [address] [place] [address] Lymphocytes #/vol (Bld) 1.96 {X10_3/ul} Normal 0.83-4.51 [facility] Work Phone: Comment on above: Test performed at:[facility] [address] [place] [address] Lymphocytes/100 WBC (Bld) 38.1 % Normal 19-41 [facility] Work Phone: Comment on above: Test performed at:[facility] [address] [place] [address] MCH Entitic mass (RBC) 31.8 pg Normal 27.0-32.0 [facility] Work Phone: Comment on above: Test performed at:[facility] [address] [place] [address] MCHC mass conc (RBC) 34.7 {g/gl} Normal 32-36 [facility] prehensive Internal Medicine Work Phone: Comment on above: Test performed at:[facility] [address] [place] [address] MCV Entitic volume (RBC) 91.7 fL Normal 81-99 [facility] Internal Medicine Work Phone: Comment on above: Test performed at:[facility] [address] [place] [address] Monocytes/100 WBC (Bld) 6.8 % Normal 0-10 [facility] Work Phone: Comment on above: Test performed at:[facility] [address] [place] [address] Neutrophils/100 WBC (Bld) 51.0 % Normal 47-70 [facility] Internal Medicine Work Phone: Comment on above: Test performed at:[facility] [address] [place] [address] Platelet mean volume Entitic volume (Bld) 8.2 fL Normal 6.2-12.0 Comprehensi Internal Medicine Work Phone: Comment on above: Test performed at:[facility] [address] [place] [address] Platelets #/vol (Bld) 280 10*3/uL Normal 150-450 [facility] Work Phone: Comment on above: Test performed at:[facility] [address] [place] [address] RBC #/vol (Bld) 4.59 {M/mm3} Normal 4.2-5.4 Compreh ensive Internal Medicine Work Phone: Comment on above: Test performed at:[facility] [address] [place] [address] RDW SD 44.7 fL Abnormal 35.1-43.9 [facility] Work Phone: Comment on above: Test performed at:[facility] [address] [place] [address] WBC #/vol (Bld) 5.1 10*3/uL Normal 4.4-11.0 Comprehe nsive Internal Medicine Work Phone: Comment on above: Test performed at:[facility] [address] [place] [address] Comprehensive Metabolic Prof ilOrdered By: Restoration Ecologist on 05-04-2015 Comprehensive metabolic 2000 panel 3.8 g/dL Abnormal 2.3-3.5 Comprehensi ve Internal Medicine Work Phone: Comment on above: ORDERED CMP TSH PTH VITD MGDR.FAST ORDERED LIPID TSH CBCD CMPTest performed at:[facility] [address] [facility] [place] [address] Comprehensive metabolic 2000 panel 5 1 Normal 5-15 Comprehensi ve Internal Medicine Work Phone: Comment on above: ORDERED CMP TSH PTH VITD MGDR.FAST ORDERED LIPID TSH CBCD CMPTest performed at:[facility] [address] [place] [address] Comprehensive metabolic 2000 panel 4.0 mmol/L Normal 3.5-5.1 Comprehensi ve Internal Medicine Work Phone: Comment on above: ORDERED CMP TSH PTH VITD MGDR.FAST ORDERED LIPID TSH CBCD CMPTest performed at:[facility] [address] [facility] [place] [address] Comprehensive metabolic 2000 panel 136 mmol/L Normal 136-145 Comprehensi ve Internal Medicine Work Phone: Comment on above: ORDERED CMP TSH PTH VITD MGDR.FAST ORDERED LIPID TSH CBCD CMPTest performed at:[facility] [address] [facility] [address] Comprehensive metabolic 2000 panel 0.60 mg/dL Normal 0.20-1.00 Comprehensi ve Internal Medicine Work Phone: Comment on above: ORDERED CMP TSH PTH VITD MGDR.FAST ORDERED LIPID TSH CBCD CMPTest performed at:[facility] [address] [facility] [place] [address] Comprehensive metabolic 2000 panel 26 U/L Normal 12-78 Comprehensi ve Internal Medicine Work Phone: Comment on above: ORDERED CMP TSH PTH VITD MGDR.FAST ORDERED LIPID TSH CBCD CMPTest performed at:[facility] [address] [facility] [address] Comprehensive metabolic 2000 panel 95 U/L Normal 50-136 Comprehensi ve Internal Medicine Work Phone: Comment on above: ORDERED CMP TSH PTH VITD MGDR.FAST ORDERED LIPID TSH CBCD CMPTest performed at:[facility] [address]oz[address] [facility] [place] [address] Comprehensive metabolic 2000 panel 16 U/L Normal 15-37 Comprehensi ve Internal Medicine Work Phone: Comment on above: ORDERED CMP TSH PTH VITD MGDR.FAST ORDERED LIPID TSH CBCD CMPTest performed at:[facility] [address] [facility] [place] [address] Comprehensive metabolic 2000 panel 9.4 mg/dL Normal 8.5-10.1 Comprehensi ve Internal Medicine Work Phone: Comment on above: ORDERED CMP TSH PTH VITD MGDR.FAST ORDERED LIPID TSH CBCD CMPTest performed at:[facility] [address]fasm[address] [facility] [place] [address] Comprehensive metabolic 2000 panel 1.0 {RATIO} Normal 0.9-2.4 Comprehensi ve Internal Medicine Work Phone: Comment on above: ORDERED CMP TSH PTH VITD MGDR.FAST ORDERED LIPID TSH CBCD CMPTest performed at:[facility] [address] [place] [address] Comprehensive metabolic 2000 panel 29.0 mmol/L Normal 21.0-32.0 Comprehensi ve Internal Medicine Work Phone: Comment on above: ORDERED CMP TSH PTH VITD MGDR.FAST ORDERED LIPID TSH CBCD CMPTest performed at:[facility] [address] [place] [address] Comprehensive metabolic 2000 panel 3.9 g/dL Normal 3.4-5.0 Comprehensi ve Internal Medicine Work Phone: Comment on above: ORDERED CMP TSH PTH VITD MGDR.FAST ORDERED LIPID TSH CBCD CMPTest performed at:[facility] [address] [place] [address] Comprehensive metabolic 2000 panel 7.7 g/dL Normal 6.4-8.2 Comprehensi ve Internal Medicine Work Phone: Comment on above: ORDERED CMP TSH PTH VITD MGDR.FAST ORDERED LIPID TSH CBCD CMPTest performed at:[facility] Xs[address]fcru3935 [place] [address] Comprehensive metabolic 2000 panel 12.7 {RATIO} Normal 10-20 Comprehensi ve Internal Medicine Work Phone: Comment on above: ORDERED CMP TSH PTH VITD MGDR.FAST ORDERED LIPID TSH CBCD CMPTest performed at:[facility] [address] [place] [address] Comprehensive metabolic 2000 panel 107 mL/min Normal Comprehensi ve Internal Medicine Work Phone: Comment on above: ORDERED CMP TSH PTH VITD MGDR.FAST ORDERED LIPID TSH CBCD CMPTest performed at:[facility] [address] [place] [address] Comprehensive metabolic 2000 panel 88 mL/min Normal Comprehensi ve Internal Medicine Work Phone: Comment on above: ORDERED CMP TSH PTH VITD MGDR.FAST ORDERED LIPID TSH CBCD CMPTest performed at:[facility] [address]swxi[address] [facility] [place], [place] [id number] Comprehensive metabolic 2000 panel 0.71 mg/dL Normal 0.55-1.20 Comprehensi ve Internal Medicine Work Phone: Comment on above: Please note revised CREATININE reference range [id number]/22/2015. ORDERED CMP TSH PTH VITD MGDR.FAST ORDERED LIPID TSH CBCD CMPTest performed at:[facility] Ofp[address]rsiln[address] [place] [address] Comprehensive metabolic 2000 panel 9 mg/dL Normal 7-18 Comprehensi ve Internal Medicine Work Phone: Comment on above: ORDERED CMP TSH PTH VITD MGDR.FAST ORDERED LIPID TSH CBCD CMPTest performed at:[facility] Kqrmexendw8614 [facility] [place] [address] Comprehensive metabolic 2000 panel 84 mg/dL Normal 70-110 Comprehensi ve Internal Medicine Work Phone: Comment on above: ORDERED CMP TSH PTH VITD MGDR.FAST ORDERED LIPID TSH CBCD CMPTest performed at:[facility] Nwiujpzeve[address] [place] [address] Comprehensive metabolic 2000 panel 102 mmol/L Normal 98-107 Comprehensi ve Internal Medicine Work Phone: Comment on above: ORDERED CMP TSH PTH VITD MGDR.FAST ORDERED LIPID TSH CBCD CMPTest performed at:[facility] Jjonvujyqj[address] [place], [place] [id number] Lipid ProfileOrdered By: Lyle tem Ship Fitter on 05-04-2015 Cholesterol in HDL mass conc 52 mg/dL Normal Comprehensive [facility] Work Phone: Comment on above: Reference Range HDL <40 mg/dL Low HDL Cholesterol HDL >or= 60 mg/dL High HDL Cholesterol ORDERED CMP TSH PTH VITD MGDR.FAST ORDERED LIPID TSH CBCD CMPTest performed at:[facility] Tlbvoxcell[address] [place] [address] Cholesterol in LDL mass conc 160 mg/dL Abnormal 0-130 [facility] Work Phone: Comment on above: ORDERED CMP TSH PTH VITD MGDR.FAST ORDERED LIPID TSH CBCD CMPTest performed at:[facility] U[address]ztjj7434 [place] [address] Cholesterol in VLDL mass conc 29 mg/dL Normal 5-40 Comprehensive [facility] Work Phone: Comment on above: ORDERED CMP TSH PTH VITD MGDR.FAST ORDERED LIPID TSH CBCD CMPTest performed at:[facility] Dtdikkomnl6886 [place] [address] Cholesterol mass conc 241 mg/dL Abnormal [facility] Work Phone: Comment on above: <200 mg/dL Desirable 200-240 mg/dL Borderline >240 mg/dL High Risk ORDERED CMP TSH PTH VITD MGDR.FAST ORDERED LIPID TSH CBCD CMPTest performed at:[facility] Flprsjrbnb5860 [place] [address] Triglyceride mass conc 143 mg/dL Normal 0-199 [facility] Work Phone: Comment on above: Serum Triglycerides Reference Interval Normal <150 mg/dL Borderline high 150 - 199 mg/dL High 200 - 499 mg/dL Very High > or = 500 mg/dL ORDERED CMP TSH PTH VITD MGDR.FAST ORDERED LIPID TSH CBCD CMPTest performed at:[facility] Iqzwmqdufn2361 [place] [address] MagnesiumOrdered By: Restoration Ecologist on 05-04-2015 Magnesium mass conc 2.0 mg/dL Normal 1.8-2.4 Compr ehensive Internal Medicine Work Phone: Comment on above: ORDERED CMP TSH PTH VITD MGDR.FAST ORDERED LIPID TSH CBCD CMPTest performed at:[facility] Xxioylumsb5513 [place] [address] PTH,INTACTOrdered By: Restoration Ecologist on 05-04-2015 PTH,INTACT 12 pg/mL Abnormal 14-72 [facility] Work Phone: Comment on above: Test performed at:[facility] Gsvzxxzcsu0138 [place] [address] Thyroid Stim Hormone (TSH)Or dered By: Restoration Ecologist on 05-04-2015 Thyrotropin Qn 3.41 {uIU/mL} Normal 0.358-3.74 Compreh ensive Internal Medicine Work Phone: Comment on above: ORDERED CMP TSH PTH VITD MGDR.FAST ORDERED LIPID TSH CBCD CMPTest performed at:[facility] Fqfflnljaq1109 [place] [address] Vitamin D,25 HydroxyOrdered By: Restoration Ecologist on 05-04-2015 Vitamin D,25 Hydroxy 44.9 ng/mL Normal Comp [facility] Work Phone: Comment on above: Vitamin D 25(OH) Sta tus Range Deficiency <20 ng/mL (50nmol/L) Insuffciency 20 - 30 ng/mL (50 - 75 nmol/L) Sufficiency 30 - 100 ng/mL (75 - 250 nmol/L) Toxicity >100 ng/mL (>250 nmol/L) Test performed at:[facility] Xxafjjdoug2201 [place] [address] CDIFF (Molecular)Ordered By: Restoration Ecologist on 04-05-2015 C. difficile DNA FLACO+probe Ql (Unsp spec) See Note Normal Comprehensive [facility] Work Phone: Comment on above: Cdiff-MolecularC. Di ff DNA Negative- No toxigenic C. Diff DNA Detected Test performed at:[facility] Vpoewkddsc10[address] [place] [address] Ova and ParasitesOrdered By: Restoration Ecologist on 04-05-2015 Ova and Parasites See Note Normal Compreh ensive Internal Medicine Work Phone: Comment on above: O + POVA AND PARASIT ES EXAM, ROUTINE These results were obtained using wet preparation(s) and trichrome stained smear. This test does not include testing for Crytosporidium parvum, Cyclospora, or Microsporidia. [facility] ORIGINAL REPORT ON FILE IN LAB CONTAINS ADDITIONAL TEST SITE INFORMATION. Ova/Parasite Exam NO OVA, CYSTS, OR PARASITES FOUND. Test performed at:[facility] Fffjkbcgfw8280 [facility] [place] [address] Stool CultureNo Salm onella, Shigella, Yersinia or Campylobacter isolated. No significant amount of Staphylococcus aureus or yeast-like organisms isolated. Shiga ToxinShiga-Toxin 1 AND 2 Shiga Toxin 1 and ShigaToxin 2 NOT Detected Stool Lactoferrin/WBCOrdered By: Restoration Ecologist on 04-05-2015 Lactoferrin IA Ql (St) See Note Normal [facility] Work Phone: Comment on above: Stool Lacto/WBCFecal WBC Lactoferrin Negative: No Fecal WBC Lactoferrin present Test performed at:[facility] [address] [place] [address] Stool Occult Blood iFOBOrder ed By: Restoration Ecologist on 04-05-2015 Lower GI hemoglobin IA Ql (St) See Note Normal [facility] Work Phone: Comment on above: STOB iFOBOccult Bloo d Negative Test performed at:[facility] Kn[address] [place] [address] Basic Metabolic Profile (BMP )Ordered By: Restoration Ecologist on 03-09-2015 Basic metabolic 2000 panel 129 mg/dL Abnormal 70-110 [facility] Work Phone: Comment on above: Fasting Glucose resu lt greater than or equal to 126 mg/dLsuggests DIABETES MELLITUS per A.D.A. criteria. Test performed at:[facility] [address] [place], [place] [id number] Basic metabolic 2000 panel 6 1 Normal 5-15 [facility] Work Phone: Comment on above: Test performed at:[facility] [address] [place] [address] Basic metabolic 2000 panel 27.0 mmol/L Normal 21.0-32.0 [facility] Work Phone: Comment on above: Test performed at:[facility] [address] [place] [address] Basic metabolic 2000 panel 105 mmol/L Normal 98-107 [facility] Work Phone: Comment on above: Test performed at:[facility] [address] [place] [address] Basic metabolic 2000 panel 3.8 mmol/L Normal 3.5-5.1 [facility] Work Phone: Comment on above: Test performed at:[facility] [address] [place] [address] Basic metabolic 2000 panel 14 mg/dL Normal 7-18 [facility] Work Phone: Comment on above: Test performed at:[facility] [address] [place] [address] Basic metabolic 2000 panel 8.8 mg/dL Normal 8.5-10.1 [facility] Work Phone: Comment on above: Test performed at:[facility] [address] [place] [address] Basic metabolic 2000 panel 14.0 {RATIO} Normal 10-20 [facility] Work Phone: Comment on above: Test performed at:[facility] Msqmhuyflc17[address] [place], [place] [id number] Basic metabolic 2000 panel 72 mL/min Normal [facility] Work Phone: Comment on above: Test performed at:[facility] [address] [place] [address] Basic metabolic 2000 panel 138 mmol/L Normal 136-145 [facility] Work Phone: Comment on above: Test performed at:[facility] Flzgonszvt4505 [place] [address] Basic metabolic 2000 panel 1.0 mg/dL Normal 0.6-1.0 [facility] Work Phone: Comment on above: Test performed at:[facility] Ftqzqavazl6433 [place] [address] Basic metabolic 2000 panel 59 mL/min Abnormal [facility] Work Phone: Comment on above: Test performed at:[facility] Ughqqzocac6894 [place] [address] MagnesiumOrdered By: Restoration Ecologist on 03-09-2015 Magnesium mass conc 1.6 mg/dL Abnormal 1.8-2.4 Compr ehensive Internal Medicine Work Phone: Comment on above: Test performed at:[facility] [address] [place], [place] [id number] Comprehensive Metabolic Prof ilOrdered By: Restoration Ecologist on 01-06-2015 Comprehensive metabolic 2000 panel 23 U/L Normal 12-78 Comprehensi ve Internal Medicine Work Phone: Comment on above: Test performed at:[facility] [address] [place] [address] Comprehensive metabolic 2000 panel 53 mL/min Abnormal Comprehensi ve Internal Medicine Work Phone: Comment on above: Test performed at:[facility] [address] [place] [address] Comprehensive metabolic 2000 panel 17 mg/dL Normal 7-18 Comprehensi ve Internal Medicine Work Phone: Comment on above: Test performed at:[facility] [address] [place], [place] [id number] Comprehensive metabolic 2000 panel 7.7 g/dL Normal 6.4-8.2 Comprehensi ve Internal Medicine Work Phone: Comment on above: Test performed at:[facility] [address] [place] [address] Comprehensive metabolic 2000 panel 1.1 mg/dL Abnormal 0.6-1.0 Comprehensi ve Internal Medicine Work Phone: Comment on above: Test performed at:[facility] [address] [place], [place] [id number] Comprehensive metabolic 2000 panel 3.9 g/dL Normal 3.4-5.0 Comprehensi ve Internal Medicine Work Phone: Comment on above: Test performed at:[facility] [address] [place], [place] [id number] Comprehensive metabolic 2000 panel 3.8 g/dL Normal 2.7-4.2 Comprehensi ve Internal Medicine Work Phone: Comment on above: Test performed at:[facility] [address] [place] [address] Comprehensive metabolic 2000 panel 106 mmol/L Normal 98-107 Comprehensi ve Internal Medicine Work Phone: Comment on above: Test performed at:[facility] [address] [place] [address] Comprehensive metabolic 2000 panel 64 mL/min Normal Comprehensi ve Internal Medicine Work Phone: Comment on above: Test performed at:[facility] [address] [place], [place] [id number] Comprehensive metabolic 2000 panel 7 1 Normal 5-15 Comprehensi ve Internal Medicine Work Phone: Comment on above: Test performed at:[facility] [address] [place], [place] [id number] Comprehensive metabolic 2000 panel 26.0 mmol/L Normal 21.0-32.0 Comprehensi ve Internal Medicine Work Phone: Comment on above: Test performed at:[facility] [address] [place], [place] [id number] Comprehensive metabolic 2000 panel 136 mg/dL Abnormal 70-110 Comprehensi ve Internal Medicine Work Phone: Comment on above: Fasting Glucose resu lt greater than or equal to 126 mg/dLsuggests DIABETES MELLITUS per A.D.A. criteria. Test performed at:[facility] [address] [place], [place] [id number] Comprehensive metabolic 2000 panel 4.1 mmol/L Normal 3.5-5.1 Comprehensi ve Internal Medicine Work Phone: Comment on above: Test performed at:[facility] [address] [place] [address] Comprehensive metabolic 2000 panel 139 mmol/L Normal 136-145 Comprehensi ve Internal Medicine Work Phone: Comment on above: Test performed at:[facility] [address] [place], [place] [id number] Comprehensive metabolic 2000 panel 0.40 mg/dL Normal 0.00-4.00 Comprehensi ve Internal Medicine Work Phone: Comment on above: Test performed at:[facility] [address] [place], [place] [id number] Comprehensive metabolic 2000 panel 104 U/L Normal 50-136 Comprehensi ve Internal Medicine Work Phone: Comment on above: Test performed at:[facility] [address] [place], [place] [id number] Comprehensive metabolic 2000 panel 15 U/L Normal 15-37 Comprehensi ve Internal Medicine Work Phone: Comment on above: Test performed at:[facility] [address] [place] [address] Comprehensive metabolic 2000 panel 9.3 mg/dL Normal 8.5-10.1 Comprehensi ve Internal Medicine Work Phone: Comment on above: Test performed at:[facility] [address] [place] [address] Comprehensive metabolic 2000 panel 1.0 {RATIO} Normal 0.9-2.4 Comprehensi ve Internal Medicine Work Phone: Comment on above: Test performed at:[facility] [address] [place] [address] Comprehensive metabolic 2000 panel 15.5 {RATIO} Normal 10-20 Comprehensi ve Internal Medicine Work Phone: Comment on above: Test performed at:[facility] [address] [place] [address] MagnesiumOrdered By: Restoration Ecologist on 01-06-2015 Magnesium mass conc 1.7 mg/dL Abnormal 1.8-2.4 Compr ehensive Internal Medicine Work Phone: Comment on above: Test performed at:[facility] [address] [place] [address] PTH,INTACTOrdered By: Restoration Ecologist on 01-06-2015 PTH,INTACT 14 pg/mL Normal 14-72 [facility] Work Phone: Comment on above: Test performed at:[facility] [address] [place] [address] Comprehensive Metabolic Prof ilOrdered By: Restoration Ecologist on 10-31-2014 Albumin mass conc 4.0 g/dL Normal 3.4-5.0 Compreh ensive Internal Medicine Work Phone: Comment on above: Test performed at:[facility] [address] [place] [address] Albumin/Globulin mass ratio 1.1 {RATIO} Normal 0.9-2.4 [facility] Work Phone: Comment on above: Test performed at:[facility] Wgzwjzqzuw9986 [place] [address] ALT enzyme act/vol 23 U/L Normal 12-78 [facility] Internal Medicine Work Phone: Comment on above: Test performed at:[facility] Yhhlvrffmm9519 [place] [address] AST enzyme act/vol 10 U/L Abnormal 15-37 [facility] Work Phone: Comment on above: Test performed at:[facility] Bzlljwkxvv1377 [place] [address] Bilirubin mass conc 0.40 mg/dL Normal 0.00-4.00 Compr [facility] Internal Medicine Work Phone: Comment on above: Test performed at:[facility] Rovwvmtqrg1638 [place] [address] Calcium mass conc 8.9 mg/dL Normal 8.5-10.1 Compreh [facility] Internal Medicine Work Phone: Comment on above: Test performed at:[facility] K[address]ksgbohm7[address] [place] [address] Chloride molar conc 107 mmol/L Normal 98-107 Compr [facility] Internal Medicine Work Phone: Comment on above: Test performed at:[facility] Arpzpwoaxe[address] [place] [address] CO2 molar conc 24.0 mmol/L Normal 21.0-32.0 [facility] Work Phone: Comment on above: Test performed at:[facility] Yatiksrpbq8[address] [place] [address] Creatinine mass conc 1.0 mg/dL Normal 0.6-1.0 Comp [facility] Internal Medicine Work Phone: Comment on above: Test performed at:[facility] [address] [place] [address] GFR/1.73 sq M predicted among non-blacks MDRD vol rate/area (S/P/Bld) 59 mL/min/{1.73_m2} Abnormal Comprehe nsive Internal Medicine Work Phone: Comment on above: Test performed at:[facility] [address] [place] [address] Globulin mass conc (S) 3.8 g/dL Normal 2.7-4.2 [facility] Work Phone: Comment on above: Test performed at:[facility] [address] [place] [address] Glucose mass conc 128 mg/dL Abnormal 70-110 Compreh ensive Internal Medicine Work Phone: Comment on above: Fasting Glucose resu lt greater than or equal to 126 mg/dLsuggests DIABETES MELLITUS per A.D.A. criteria. Test performed at:[facility] [address] [place] [address] Potassium molar conc 3.9 mmol/L Normal 3.5-5.1 Comp rehensive Internal Medicine Work Phone: Comment on above: Test performed at:[facility] [address] [place] [address] Protein mass conc 7.8 g/dL Normal 6.4-8.2 Compreh ensive Internal Medicine Work Phone: Comment on above: Test performed at:[facility] [address] [place] [address] Sodium molar conc 136 mmol/L Normal 136-145 Compreh ensive Internal Medicine Work Phone: Comment on above: Test performed at:[facility] [address] [place] [address] Urea nitrogen mass conc 11 mg/dL Normal 7-18 [facility] Work Phone: Comment on above: Test performed at:[facility] [address] [place], [place] [id number] Comprehensive Metabolic Profil 99 U/L Normal 50-136 [facility] Work Phone: Comment on above: Test performed at:[facility] [address] [place] [address] Comprehensive Metabolic Profil 11.0 {RATIO} Normal 10-20 [facility] Work Phone: Comment on above: Test performed at:[facility] [address]ol[address] [place] [address] Comprehensive Metabolic Profil 72 mL/min Normal [facility] Work Phone: Comment on above: Test performed at:[facility] [address] [place] [address] Comprehensive Metabolic Profil 5 1 Normal 5-15 [facility] Medicine Work Phone: Comment on above: Test performed at:[facility] [address]xuzujj7[address] [place], [place] [id number] CAOrdered By: Restoration Ecologist on 09-16-2014 Calcium mass conc 9.6 mg/dL Normal 8.5-10.1 Compreh ensive Internal Medicine Work Phone: CMPOrdered By: System Manage r on 08-10-2014 Albumin mass conc 4.0 g/dL Normal 3.4-5.0 Compreh ensive Internal Medicine Work Phone: Albumin/Globulin mass ratio 1.1 {RATIO} Normal 0.9-2.4 [facility] Work Phone: ALP enzyme act/vol 101 U/L Normal 50-136 Compre hensive Internal Medicine Work Phone: ALT enzyme act/vol 23 U/L Normal 12-78 Compre hensive Internal Medicine Work Phone: AST enzyme act/vol 13 U/L Abnormal 15-37 Compre hensive Internal Medicine Work Phone: Bilirubin mass conc 0.40 mg/dL Normal 0.00-4.00 Compr ehensive Internal Medicine Work Phone: Calcium mass conc 9.3 mg/dL Normal 8.5-10.1 Compreh ensive Internal Medicine Work Phone: Chloride molar conc 103 mmol/L Normal 98-107 Compr ehensive Internal Medicine Work Phone: CO2 molar conc 31.0 mmol/L Normal 21.0-32.0 Comprehen sive Internal Medicine Work Phone: Creatinine mass conc 1.0 mg/dL Normal 0.6-1.0 Comp rehensive Internal Medicine Work Phone: GFR/1.73 sq M predicted among non-blacks MDRD vol rate/area (S/P/Bld) 59 mL/min/{1.73_m2} Abnormal Comprehe nsive Internal Medicine Work Phone: Globulin mass conc (S) 3.6 g/dL Normal 2.7-4.2 [facility] Work Phone: Glucose mass conc 95 mg/dL Normal 70-110 Compreh ensive Internal Medicine Work Phone: Potassium molar conc 3.8 mmol/L Normal 3.5-5.1 Comp rehensive Internal Medicine Work Phone: Protein mass conc 7.6 g/dL Normal 6.4-8.2 Compreh ensive Internal Medicine Work Phone: Sodium molar conc 138 mmol/L Normal 136-145 Compreh ensive Internal Medicine Work Phone: Urea nitrogen mass conc 13 mg/dL Normal 7-18 [facility] Work Phone: Urea nitrogen/Creatinine mass ratio 13.0 {RATIO} Normal 10-20 [facility] Work Phone: CMP 72 mL/min Normal [facility] Work Phone: CMP 4 1 Abnormal 5-15 [facility] Work Phone: TSHOrdered By: System Manage r on 08-10-2014 Thyrotropin Qn 0.82 {uIU/mL} Normal 0.358-3.74 Compreh ensive Internal Medicine Work Phone: C-REACTIVE PROTEIN ([id number])Or dered By: Restoration Ecologist on 01-18-2013 CRP mass conc 3.5 mg/L Normal 0.0-4.9 Comprehensi ve Internal Medicine Work Phone: Comment on above: PATIENT NOT FASTINGP ERFORMED BY: [facility] [id number] CALCIUM SERUM ([id number])Ordered By: Restoration Ecologist on 01-18-2013 Calcium mass conc 10.4 mg/dL Abnormal 8.6-10.2 Compreh ensive Internal Medicine Work Phone: Comment on above: PATIENT NOT FASTINGP ERFORMED BY: [facility] [id number] CAUOrdered By: System Manage r on 01-18-2013 CAU 117.8 {mg/24_hr} Normal 100.0-300. 0 [facility] Work Phone: Comment on above: Performed at: [address] [id number] Director: Дмитрий Alvarez PhD, Phone: [phone] CAU 3.1 mg/dL Normal [facility] Work Phone: Microscopic ExaminationOrder ed By: Restoration Ecologist on 01-18-2013 Bacteria LM.HPF #/area (Urine sed) None seen Normal [facility] Work Phone: Comment on above: PATIENT NOT FASTINGP ERFORMED BY: [place] [id number] [facility] [id number] Epithelial cells LM.HPF #/area (Urine sed) 0-10 Normal 0 - 10 [facility] Work Phone: Comment on above: PATIENT NOT FASTINGP ERFORMED BY: [facility] Agjcmi[address] [id number] Mucus Ql (Urine sed) Present Normal Comp rehensive Internal Medicine Work Phone: Comment on above: PATIENT NOT FASTINGP ERFORMED BY: [facility] Ynodap[address] [id number] RBC LM.HPF #/area (Urine sed) 0-3 Normal 0 - 3 [facility] Work Phone: Comment on above: PATIENT NOT FASTINGP ERFORMED BY: CB [facility] Nqtrad7620 [address] RoadDublin [place] [id number] WBC LM.HPF #/area (Urine sed) 0-5 Normal 0 - 5 [facility] Work Phone: Comment on above: PATIENT NOT FASTINGP ERFORMED BY: CB [facility] Bjinnn7820 [address]ini RoadDublin [place] [id number] PARATHORMONE ([id number])Ordered By: Restoration Ecologist on 01-18-2013 Parathyrin.intact mass conc 34 pg/mL Normal 15-65 [facility] Work Phone: Comment on above: PATIENT NOT FASTINGP ERFORMED BY: CB [facility] Tnitqu6451 [address] RoadDublin [place] [id number] SED RATE ERYTHROCYTE ([id number]) Ordered By: Restoration Ecologist on 01-18-2013 ESR Velocity (Bld) 3 mm/h Normal 0-40 [facility] Internal Medicine Work Phone: Comment on above: PATIENT NOT FASTINGP ERFORMED BY: CB [facility] Nyttbu7226 [address] RoadDublin [place] [id number] URINALYSIS ([id number])Ordered By : Restoration Ecologist on 01-18-2013 Appearance Nom (U) Clear Normal [facility] Internal Medicine Work Phone: Comment on above: PATIENT NOT FASTINGP ERFORMED BY: CB [facility] Llqglh3283 [address]ini RoadDublin [place] [id number] Information: [id number] Bilirubin Ql (U) Negative Normal Comprehe nsive Internal Medicine Work Phone: Comment on above: PATIENT NOT FASTINGP ERFORMED BY: CB [facility] Corlro4373 [address] RoadDublin [place] [id number] Information: [id number] Bilirubin Ql (U) Negative Normal Comprehe nsive Internal Medicine Work Phone: Color Nom (U) Yellow Normal Comprehensi Internal Medicine Work Phone: Comment on above: PATIENT NOT FASTINGP ERFORMED BY: MONICA [facility] Txegtq9641 [address] RoadDublin [place] [id number] Information: [id number] Glucose Ql (U) Negative Normal Comprehens lucio Internal Medicine Work Phone: Comment on above: PATIENT NOT FASTINGP ERFORMED BY: CB [facility] Koibpr4944 [address] RoadDublin [place] [id number] Information: [id number] Glucose Ql (U) Negative Normal Comprehens lucio Internal Medicine Work Phone: Hemoglobin Ql (U) Negative Normal Compreh ensive Internal Medicine Work Phone: Comment on above: PATIENT NOT FASTINGP ERFORMED BY: MONICA [facility] Jnurxe5509 [address] RoadDuin [place] [id number] Information: [id number] Hemoglobin Ql (U) Negative Normal Compreh ensive Internal Medicine Work Phone: Ketones Ql (U) Negative Normal Comprehens lucio Internal Medicine Work Phone: Comment on above: PATIENT NOT FASTINGP ERFORMED BY: MONICA [facility] Uosjlr1233 [address] RoadCaromont [facility] [place] [id number] Information: [id number] Ketones Ql (U) Negative Normal Comprehens lucio Internal Medicine Work Phone: Leukocyte esterase Test strip Ql (U) 2+ Abnormal [facility] Work Phone: Comment on above: PATIENT NOT FASTINGP ERFORMED BY: CB [facility] Caqtgk9295 [address] Roadblin [place] [id number] Information: [id number] Microscopic observation LM Nom (Urine sed) See below: Normal [facility] Work Phone: Comment on above: PATIENT NOT FASTINGP ERFORMED BY: CB [facility] Txulmg0001 [address] RoadDublin [place] [id number] Information: [id number] Nitrite Ql (U) Negative Normal Comprehens lucio Internal Medicine Work Phone: Comment on above: PATIENT NOT FASTINGP ERFORMED BY: MONICA [facility] Kfhmwm[address] [facility] [id number] Information: [id number] Nitrite Ql (U) Negative Normal Comprehens lucio Internal Medicine Work Phone: pH (U) 6.5 [pH] Normal 5.0-7.5 [facility] Work Phone: Comment on above: PATIENT NOT FASTINGP ERFORMED BY: MONICA [facility] Umbtux[address] [facility] [id number] Information: [id number] Protein Ql (U) Negative Normal Comprehens lucio Internal Medicine Work Phone: Comment on above: PATIENT NOT FASTINGP ERFORMED BY: MONICA [facility] Ppycgn9429 [facility] [id number] Information: [id number] Protein Ql (U) Negative Normal Comprehens lucio Internal Medicine Work Phone: Specific gravity Relative Density (U) 1.012 1 Normal 1.005-1.03 0 [facility] Work Phone: Comment on above: PATIENT NOT FASTINGP ERFORMED BY: MONICA LabAnarp Fdoubc9264 [facility] [id number] Information: [id number] Urobilinogen (U) [Mass/Vol] 0.2 mg/dL Normal 0.0-1.9 [facility] Work Phone: Urobilinogen Test strip mass conc (U) 0.2 mg/dL Normal 0.0-1.9 Comprehensiv e Internal Medicine Work Phone: Comment on above: PATIENT NOT FASTINGP ERFORMED BY: MONICA [facility] Qbufpx9879 [facility] [id number] Information: [id number] URINE AUDRA CULTURE-IDENTIFICA TN ([id number])Ordered By: Restoration Ecologist on 01-18-2013 Bacteria identified Cx Nom (U) Final report Normal [facility] Work Phone: Comment on above: PATIENT NOT FASTINGP ERFORMED BY: MONICA [facility] Rtsaep3234 [facility] [id number] Information: [id number] Bacteria identified Cx Nom (U) CNSNSS Normal [facility] Work Phone: Comment on above: Coagulase negative S taphylococcus species, not Staphylococcussaprophyticus.300 Colonies/mLBased on resistance to oxacillin this isolate would be resistant toall currently available beta-lactam antimicrobial agents, with theexception of the newer cephalosporins with anti-MRSA activity, such asCeftaroline S = Susceptible; I = Intermediate; R = Resistant P = Positive; N = Negative MICS are expressed in micrograms per mL Antibiotic RSLT#1 RSLT#2 RSLT#3 RSLT#4Ciprofloxacin S SGentamicin SLevofloxacin S SLinezolid SNitrofurantoin S SOxacillin RPenicillin S RRifampin STetracycline R STrimethoprim/Sulfa SVancomycin S S PATIENT NOT FASTINGP ERFORMED BY: MONICA [facility] Rfplta7130 [facility] [id number] Information: [id number] Bacteria identified Cx Nom (U) Enterococcus faecalis Normal Comprehens lucio Internal Medicine Work Phone: Comment on above: 600 Colonies/mLNote: this isolate is vancomycin- susceptible.This information is provided for epidemiologic purposesonly: vancomycin is not among the antibioticsrecommended for therapy of urinary tract infectionscaused by Enterococcus.For Enterococcus species, cephalosporins, aminoglycosides (except forhigh-level resistance screening), clindamycin, and trimethoprim-sulfamethoxazole are not effective clinically. Fluoroquinolones areused primarily for treating urinary tract infections. (CLSI, W334-Q03,2009) PATIENT NOT FASTINGP ERFORMED BY: MONICA [facility]ioLogs Anmboi8229 [facility] [id number] Information: [id number] Vitamin D Hydroxy (82479)Ord ered By: Restoration Ecologist on 01-18-2013 25-Hydroxyvitamin D2+25-Hydroxyvitamin D3 mass conc 31.4 ng/mL Normal 30.0-100.0 [facility] Work Phone: Comment on above: Vitamin D deficiency has been defined by the [place] and an Endocrine Society practice guideline as alevel of serum 25-OH vitamin D less than 20 ng/mL (1,2).The Endocrine Society went on to further define vitamin Dinsufficiency as a level between 21 and 29 ng/mL (2).1. IOM ([place] [employer]). 2010. Dietary reference intakes for calcium and D. [place]: The National Academies Press.2. Hernesto MF, Carolyn JEONG, Christoph AYOUB, et al. Evaluation, treatment, and prevention of vitamin D deficiency: an Endocrine Society clinical practice guideline. JCEM. 2010; 96(7):1911-30. PATIENT NOT FASTINGP ERFORMED BY: MONICA LabCoBristol-Myers Squibb Children's HospitalCsqgtc8544 [facility] [id number] THORACIC SPINE 3 VIEWSOrdere d By: Restoration Ecologist on 01-17-2013 THORACIC SPINE 3 VIEWS See Note Normal [facility] Work Phone: Comment on above: PROCEDURE: X-RAY - T HORACIC SPINE REASON FOR EXAM: Female, 62 years old. Upper and mid back pain. TECHNIQUE: Three views of the thoracic spine were obtained. COMPARISON: None. FINDINGS:Normal visualized thoracic vertebrae. There is multi-level disc space narrowing with endplate spondylosis ofthethoracic spine. There is an increased kyphosis of the thoracic spine. There is atherosclerotic tortuosity of the aortic arch and descendingthoracic aorta. IMPRESSION:Degenerative changes of the thoracic spine. Signed:Jorge Johnson M.D.January 17, 2013 at 4:14:10 PM [phone] Signed GP/GP If you are the referring physician and would like to consult with theradiologist who provided this interpretation, please contact Devang Cain at [phone]. If this radiologist is unavailable, youwill be directed to another radiologist to assist. If you are a patient with a question regarding this report, pleasecontactyour referring physician directly. Professional Interpretation Provided By: [employer], Phone , These documents contain legally protected and confidential healthinformation intended only for the use of the individual or entity namedabove. If you are not the intended recipient, you are hereby notifiedthatany disclosure, copying, distribution, or other use of these documents isstrictly prohibited. If you have received this information in error,pleasenotify the sender immediately and arrange for the return or destructionofthese documents. Dictated on 01/17/13 1334 by Oskar Johnson MDrieleTranscribed on 01/17/13 1641 by ITS IMPORTSign by Jorge Johnson MD on 01/17/13 1642 Sign by: Jorge Johnson MD Calcium Serum (79250)Ordered By: Restoration Ecologist on 01-11-2013 Calcium mass conc 10.4 mg/dL Abnormal 8.6-10.2 Compreh ensive Internal Medicine Work Phone: Comment on above: PATIENT NOT FASTINGP ERFORMED BY: The Donut Hutlin6370 [facility] [id number] Information: [id number] Calcium Serum (40045)Ordered By: Restoration Ecologist on 01-03-2013 Calcium mass conc 10.3 mg/dL Abnormal 8.6-10.2 Compreh ensive Internal Medicine Work Phone: Comment on above: THURSDAY; PATIENT NOT FASTINGPERFORMED BY: The Donut Hutlin6370 [facility] [id number] Information: [id number] CHEST, PA AND LATERALOrdered By: Restoration Ecologist on 12-30-2012 CHEST, PA AND LATERAL See Note Normal [facility] Work Phone: Comment on above: PROCEDURE: X-RAY HUSSAIN REASON FOR EXAM: Female, 62 years old. Hypercalcemia. TECHNIQUE: PA and lateral views of the chest. COMPARISON: None. FINDINGS: The lungs are expanded. There is no demonstrated parenchymalabnormality.There is no demonstrated pleural abnormality. Normal heart and pericardium. Normal mediastinum and danielle. Normal visualized pulmonary arteries.Thereis atherosclerotic tortuosity of the aortic arch and descending thoracicaorta. There are diffuse degenerative changes of the visualized thoracic spine.Normal visualized ribs, clavicles, and shoulders. There is no demonstrated abnormality of the visualized soft tissuestructures of the upper abdomen. IMPRESSION:No acute abnormality is seen. Signed:Jorge Johnson M.D.December 30, 2012 at 3:27:54 PM [phone] Signed GP/GP If you are the referring physician and would like to consult with theradiologist who provided this interpretation, please contact Devang Cain at [phone]. If this radiologist is unavailable, youwill be directed to another radiologist to assist. If you are a patient with a question regarding this report, pleasecontactyour referring physician directly. Professional Interpretation Provided By: [employer], Phone , These documents contain legally protected and confidential healthinformation intended only for the use of the individual or entity namedabove. If you are not the intended recipient, you are hereby notifiedthatany disclosure, copying, distribution, or other use of these documents isstrictly prohibited. If you have received this information in error,pleasenotify the sender immediately and arrange for the return or destructionofthese documents. Dictated on 12/30/12 0704 by Brandi RICH,Ranranscribed on 12/30/12 1538 by ITS IMPORTSign by Jorge Johnson MD on 12/30/12 1539 Sign by: Jorge Johnson MD PARATHORMONE ([id number])Ordered By: Restoration Ecologist on 12-28-2012 Parathyrin.intact mass conc 14 pg/mL Abnormal 15-65 [facility] Work Phone: Comment on above: PATIENT NOT FASTINGP ERFORMED BY: [facility] Lpzxbe9879 [facility] [id number] Information: ADD [id number] AND DRAW FEE 99 6660 CBC WITH MANUAL DIFF (72269) Ordered By: Restoration Ecologist on 12-24-2012 Basophils #/vol (Bld) 0.0 {x10E3/uL} Normal 0.0-0.2 [facility] Work Phone: Comment on above: PATIENT NOT FASTINGP ERFORMED BY: MONICA [place] 0534970 [facility] [id number] Information: [id number] Basophils (Bld) [#/Vol] 0.0 10*3/uL Normal 0.0-0.2 [facility] Work Phone: Basophils/100 WBC (Bld) 1 % Normal 0-3 [facility] Work Phone: Comment on above: PATIENT NOT FASTINGP ERFORMED BY: MONICA [address] [id number] Information: [id number] Eosinophils #/vol (Bld) 0.1 {x10E3/uL} Normal 0.0-0.4 [facility] Work Phone: Comment on above: PATIENT NOT FASTINGP ERFORMED BY: [address] [id number] Information: [id number],[id number] Eosinophils (Bld) [#/Vol] 0.1 10*3/uL Normal 0.0-0.4 [facility] Work Phone: Eosinophils/100 WBC (Bld) 2 % Normal 0-7 [facility] Work Phone: Comment on above: PATIENT NOT FASTINGP ERFORMED BY: [address] [id number] Information: 940388,[id number] Erythrocyte distribution width Ratio (RBC) 13.8 % Normal 12.3-15.4 [facility] Work Phone: Comment on above: PATIENT NOT FASTINGP ERFORMED BY: [address] [id number] Information: [id number] Hematocrit Volume Fraction (Bld) 41.9 % Normal 34.0-46.6 [facility] Work Phone: Comment on above: PATIENT NOT FASTINGP ERFORMED BY: MONICA WadeTheresa [place] 2192570 [facility] [id number] Information: [id number] Hemoglobin mass conc (Bld) 14.1 g/dL Normal 11.1-15.9 [facility] Work Phone: Comment on above: PATIENT NOT FASTINGP ERFORMED BY: MONICA [address] [id number] Information: [id number] Immature granulocytes #/vol (Bld) 0.0 {x10E3/uL} Normal 0.0-0.1 [facility] Work Phone: Comment on above: PATIENT NOT FASTINGP ERFORMED BY: [address] [id number] Information: [id number] Immature granulocytes (Bld) [#/Vol] 0.0 10*3/uL Normal 0.0-0.1 [facility] Work Phone: Immature granulocytes/100 WBC (Bld) 0 % Normal 0-2 [facility] Work Phone: Comment on above: PATIENT NOT FASTINGP ERFORMED BY: [address] [id number] Information: [id number] Lymphocytes #/vol (Bld) 2.3 {x10E3/uL} Normal 0.7-4.5 [facility] Work Phone: Comment on above: PATIENT NOT FASTINGP ERFORMED BY: [address] [id number] Information: [id number] Lymphocytes (Bld) [#/Vol] 2.3 10*3/uL Normal 0.7-4.5 [facility] Work Phone: Lymphocytes/100 WBC (Bld) 38 % Normal 14-46 [facility] Work Phone: Comment on above: PATIENT NOT FASTINGP ERFORMED BY: MONICA LabCoBristol-Myers Squibb Children's HospitalOdekjx5411 [facility] [id number] Information: [id number] MCH Entitic mass (RBC) 30.1 pg Normal 26.6-33.0 [facility] Work Phone: Comment on above: PATIENT NOT FASTINGP ERFORMED BY: LabCoTheresa [place]ille 2192570 [facility] [id number] Information: [id number] MCHC mass conc (RBC) 33.7 g/dL Normal 31.5-35.7 [facility] Internal Medicine Work Phone: Comment on above: PATIENT NOT FASTINGP ERFORMED BY: [facility] HospitalCoTheresa Ville 2192570 [facility] [id number] Information: [id number] MCV Entitic volume (RBC) 90 fL Normal 79-97 [facility] Work Phone: Comment on above: PATIENT NOT FASTINGP ERFORMED BY: [place] 1142570 [facility] [id number] Information: [id number] Monocytes #/vol (Bld) 0.4 {x10E3/uL} Normal 0.1-1.0 [facility] Work Phone: Comment on above: PATIENT NOT FASTINGP ERFORMED BY: LabRonald [place] 0534970 [facility] [id number] Information: [id number] Monocytes (Bld) [#/Vol] 0.4 10*3/uL Normal 0.1-1.0 [facility] Work Phone: Monocytes/100 WBC (Bld) 6 % Normal 4-13 [facility] Work Phone: Comment on above: PATIENT NOT FASTINGP ERFORMED BY: LabCoTheresa [place] 2192570 [facility] [id number] Information: [id number] Neutrophils #/vol (Bld) 3.2 {x10E3/uL} Normal 1.8-7.8 [facility] Work Phone: Comment on above: PATIENT NOT FASTINGP ERFORMED BY: MONICA [facility] Ftitbg4458 [facility] [id number] Information: [id number] Neutrophils (Bld) [#/Vol] 3.2 10*3/uL Normal 1.8-7.8 [facility] Work Phone: Neutrophils/100 WBC (Bld) 53 % Normal 40-74 [facility] Work Phone: Comment on above: PATIENT NOT FASTINGP ERFORMED BY: MONICA [place] 8656970 [facility] [id number] Information: [id number] Platelets #/vol (Bld) 260 {x10E3/uL} Normal 140-415 [facility] Work Phone: Comment on above: PATIENT NOT FASTINGP ERFORMED BY: MONICA [facility]6370 [facility] [id number] Information: [id number] Platelets (Bld) [#/Vol] 260 10*3/uL Normal 140-415 [facility] Work Phone: RBC #/vol (Bld) 4.68 {x10E6/uL} Normal 3.77-5.28 Comp [facility] hospitalensive [facility] Work Phone: Comment on above: PATIENT NOT FASTINGP ERFORMED BY: [facility]6370 [facility] [id number] Information: [id number] RBC (Bld) [#/Vol] 4.68 10*6/uL Normal 3.77-5.28 Compr ensive Internal Medicine Work Phone: WBC #/vol (Bld) 6.0 {x10E3/uL} Normal 4.0-10.5 Compr ensive Internal Medicine Work Phone: Comment on above: PATIENT NOT FASTINGP ERFORMED BY: MONICA [facility] Dtepgo65[address] Man [facility] Hospitalbl[facility] [place] [id number] Information: [id number] WBC (Bld) [#/Vol] 6.0 10*3/uL Normal 4.0-10.5 [facility] Internal Medicine Work Phone: METABOLIC PANEL, COMPREHENSI VE (69266)Ordered By: Restoration Ecologist on 12-24-2012 Albumin mass conc 4.6 g/dL Normal 3.6-4.8 Compreh [facility] Internal Medicine Work Phone: Comment on above: PATIENT NOT FASTINGP ERFORMED BY: MONICA [facility] Wkeilg[address] [facility] [id number] Albumin/Globulin mass ratio 1.8 {ratio} Normal 1.1-2.5 [facility] Work Phone: Comment on above: PATIENT NOT FASTINGP ERFORMED BY: MONICA [facility] Kiafhl6749 [address] [facility] [id number] ALP [Catalytic activity/Vol] 94 U/L Normal 25-165 [facility] Work Phone: ALP enzyme act/vol 94 [iU]/L Normal 25-165 [facility] Internal Medicine Work Phone: Comment on above: PATIENT NOT FASTINGP ERFORMED BY: MONICA [facility] Ttkpxf6281 [address] [facility] [id number] ALT [Catalytic activity/Vol] 26 U/L Normal 0-32 [facility] Work Phone: ALT enzyme act/vol 26 [iU]/L Normal 0-32 [facility] Internal Medicine Work Phone: Comment on above: PATIENT NOT FASTINGP ERFORMED BY: MONICA [facility] Lbqgcq8764 [address] [facility] [place] [id number] AST [Catalytic activity/Vol] 19 U/L Normal 0-40 [facility] Work Phone: AST enzyme act/vol 19 [iU]/L Normal 0-40 [facility] Internal Medicine Work Phone: Comment on above: PATIENT NOT FASTINGP ERFORMED BY: CB [facility] Pfvkpk9868 [address] RoadDublin [place] [id number] Bilirubin mass conc 0.4 mg/dL Normal 0.0-1.2 Compr ensive Internal Medicine Work Phone: Comment on above: PATIENT NOT FASTINGP ERFORMED BY: CB [facility] Knanpy4071 [address]ini RoadDublin [place] [id number] Calcium mass conc 10.6 mg/dL Abnormal 8.6-10.2 Compreh ensive Internal Medicine Work Phone: Comment on above: PATIENT NOT FASTINGP ERFORMED BY: CB [facility] Lhhotf8813 [address] RoadCaromont [facility] [place] [place] [id number] Chloride molar conc 103 mmol/L Normal 97-108 Compr ensive Internal Medicine Work Phone: Comment on above: PATIENT NOT FASTINGP ERFORMED BY: MONICA [facility] Zqhdbw9603 [address] RoadCaromont [facility] [place] [place] [id number] CO2 molar conc 24 mmol/L Normal 20-32 Comprehens lucio Internal Medicine Work Phone: Comment on above: PATIENT NOT FASTINGP ERFORMED BY: CB [facility] Kxuhco6691 [address] RoadCaromont [facility] [place] [place] [id number] Creatinine mass conc 0.72 mg/dL Normal 0.57-1.00 Comp [facility] hospitalensive [facility] Work Phone: Comment on above: PATIENT NOT FASTINGP ERFORMED BY: CB [facility] Dxjanl9296 [address] RoadCaromont [facility] [place] [place] [id number] GFR/1.73 sq M predicted among blacks CKD-EPI vol rate/area (S/P/Bld) 104 mL/min/1.73 Normal Comprehensiv e Internal Medicine Work Phone: Comment on above: PATIENT NOT FASTINGP ERFORMED BY: CB [facility] Jtazeo5888 [address] Roadblin [place] [id number] GFR/1.73 sq M predicted among non-blacks CKD-EPI vol rate/area (S/P/Bld) 90 mL/min/1.73 Normal [facility] Work Phone: Comment on above: PATIENT NOT FASTINGP ERFORMED BY: MONICA [facility] Bcgnnb7046 [address] RoadDublin [place] [id number] Globulin mass conc (S) 2.5 g/dL Normal 1.5-4.5 [facility] Work Phone: Comment on above: PATIENT NOT FASTINGP ERFORMED BY: MONICA [facility] Xildwt9521 [address]ini RoadDublin [place] [id number] Glucose mass conc 100 mg/dL Abnormal 65-99 Compreh ensive Internal Medicine Work Phone: Comment on above: PATIENT NOT FASTINGP ERFORMED BY: MONICA [facility] Vdqwha9828 [address] RoadDublin [place] [id number] Potassium molar conc 4.5 mmol/L Normal 3.5-5.2 Comp rehensive Internal Medicine Work Phone: Comment on above: PATIENT NOT FASTINGP ERFORMED BY: MONICA [facility] Bawzak2619 [address]ini RoadDuin [place] [id number] Protein mass conc 7.1 g/dL Normal 6.0-8.5 Compreh ensive Internal Medicine Work Phone: Comment on above: PATIENT NOT FASTINGP ERFORMED BY: MONICA [facility] Twcpan2593 [address]ini RoadDuin [place] [id number] Sodium molar conc 142 mmol/L Normal 134-144 Compreh ensive Internal Medicine Work Phone: Comment on above: PATIENT NOT FASTINGP ERFORMED BY: MONICA [facility] Jxyrzb8576 [address] [facility] [place] [id number] Urea nitrogen mass conc 10 mg/dL Normal 8-27 [facility] Work Phone: Comment on above: PATIENT NOT FASTINGP ERFORMED BY: MONICA [facility] Iawlcq6553 [address] RoadDublin [place] [id number] Urea nitrogen/Creatinine mass ratio 14 mg/mg Normal 11-26 [facility] Work Phone: Comment on above: PATIENT NOT FASTINGP ERFORMED BY: MONICA [facility] Yriaqo1964 [address]ini RoadDublin [place] [id number] Microscopic ExaminationOrder ed By: Restoration Ecologist on 12-24-2012 Bacteria LM.HPF #/area (Urine sed) None seen Normal [facility] Work Phone: Comment on above: PATIENT NOT FASTINGP ERFORMED BY: CB [facility] Afwuxz5260 [address] RoadDublin [place] [id number] Epithelial cells LM.HPF #/area (Urine sed) 0-10 Normal 0 - 10 [facility] Work Phone: Comment on above: PATIENT NOT FASTINGP ERFORMED BY: CB [facility] Ontjgq9277 [address]ini RoadDublin [place] [id number] RBC LM.HPF #/area (Urine sed) 0-3 Normal 0 - 3 [facility] Work Phone: Comment on above: PATIENT NOT FASTINGP ERFORMED BY: CB [facility] Nttrzl6434 [address] RoadDublin [place] [id number] WBC LM.HPF #/area (Urine sed) 0-5 Normal 0 - 5 [facility] Work Phone: Comment on above: PATIENT NOT FASTINGP ERFORMED BY: CB [facility] Fitupq0265 [address]blin [place] [id number] TSH ([id number])Ordered By: Syste m Ship Fitter on 12-24-2012 Thyrotropin Qn 1.100 {uIU/mL} Normal 0.450-4.50 0 [facility] Work Phone: Comment on above: PATIENT NOT FASTINGP ERFORMED BY: CB [facility] Tgxpdf4287 [address]Dublin [place] [id number] URINALYSIS, W/ MICRO ([id number]) Ordered By: Restoration Ecologist on 12-24-2012 Appearance Nom (U) Clear Normal Compre hensive Internal Medicine Work Phone: Comment on above: PATIENT NOT FASTINGP ERFORMED BY: CB [facility] Qhsivf5024 [address]Dublin [place] [id number] Bilirubin Ql (U) Negative Normal Comprehe nsive Internal Medicine Work Phone: Comment on above: PATIENT NOT FASTINGP ERFORMED BY: CB [facility] Uqdrfl5351 [address] RoadDublin [place] [id number] Bilirubin Ql (U) Negative Normal Comprehe nsive [facility] Medicine Work Phone: Color Nom (U) Yellow Normal Comprehensi ve Internal Medicine Work Phone: Comment on above: PATIENT NOT FASTINGP ERFORMED BY: MONICA Juan6370 [address]Dublin [place] [id number] Glucose Ql (U) Negative Normal Comprehens lucio [facility] Work Phone: Comment on above: PATIENT NOT FASTINGP ERFORMED BY: MONICA Juan6370 [address]Dublin [place] [id number] Glucose Ql (U) Negative Normal Comprehens lucio [facility] Work Phone: Hemoglobin Ql (U) Negative Normal Compreh ensive [facility] Work Phone: Comment on above: PATIENT NOT FASTINGP ERFORMED BY: MONICA Juan6370 [address]Duin [place] [id number] Hemoglobin Ql (U) Negative Normal Compreh ensive [facility] Work Phone: Ketones Ql (U) Negative Normal Comprehens lucio [facility] Work Phone: Comment on above: PATIENT NOT FASTINGP ERFORMED BY: MONICA Juan6370 [address] [facility]Car[facility] [place] [id number] Ketones Ql (U) Negative Normal Comprehens lucio [facility] Work Phone: Leukocyte esterase Test strip Ql (U) Trace Abnormal [facility] Work Phone: Comment on above: PATIENT NOT FASTINGP ERFORMED BY: MONICA Tatelin6370 [address] RoadCarom[facility] [place] [place] [id number] Microscopic observation LM Nom (Urine sed) See below: Normal [facility] Work Phone: Comment on above: PATIENT NOT FASTINGP ERFORMED BY: MONICA Tatelin6370 [address]Dublin [place] [id number] Nitrite Ql (U) Negative Normal Comprehens lucio [facility] Work Phone: Comment on above: PATIENT NOT FASTINGP ERFORMED BY: MONICA Tatelin6370 [address]Dublin [place] [id number] Nitrite Ql (U) Negative Normal Comprehens lucio [facility] Work Phone: pH (U) 7.0 [pH] Normal 5.0-7.5 [facility] Work Phone: Comment on above: PATIENT NOT FASTINGP ERFORMED BY: CB [facility] Bqewwi2856 [address] RoadDublin [place] [id number] Protein Ql (U) Negative Normal Comprehens lucio [facility] Work Phone: Comment on above: PATIENT NOT FASTINGP ERFORMED BY: CB [facility] Zxeymb9480 [address]Dublin [place] [id number] Protein Ql (U) Negative Normal Comprehens lucio [facility] Work Phone: Specific gravity Relative Density (U) 1.008 1 Normal 1.005-1.03 0 [facility] Work Phone: Comment on above: PATIENT NOT FASTINGP ERFORMED BY: CB [facility] Yntudz5031 [address] RoadDublin [place] [id number] Urobilinogen (U) [Mass/Vol] 0.2 mg/dL Normal 0.0-1.9 [facility] Work Phone: Urobilinogen Test strip mass conc (U) 0.2 mg/dL Normal 0.0-1.9 Comprehensiv e Internal Medicine Work Phone: Comment on above: PATIENT NOT FASTINGP ERFORMED BY: [facility] Ywpphb3165 [address]Dublin [place] [id number] Vitamin D Hydroxy ([id number])Ord ered By: Restoration Ecologist on 12-24-2012 25-Hydroxyvitamin D2+25-Hydroxyvitamin D3 mass conc 30.7 ng/mL Normal 30.0-100.0 [facility] Work Phone: Comment on above: Vitamin D deficiency has been defined by the [place] and an Endocrine Society practice guideline as alevel of serum 25-OH vitamin D less than 20 ng/mL (1,2).The Endocrine Society went on to further define vitamin Dinsufficiency as a level between 21 and 29 ng/mL (2).1. IOM ([place]). 2010. Dietary reference intakes for calcium and D. [place]: The National Academies Press.2. Hernesto MF, Carolyn NC, Christoph AYOUB, et al. Evaluation, treatment, and prevention of vitamin D deficiency: an Endocrine Society clinical practice guideline. JCEM. 2010; 96(7):1911-30. PATIENT NOT FASTINGP ERFORMED BY: LabCoBristol-Myers Squibb Children's HospitalKzhzkk7586 [address] [facility] [id number] BILAT SCRN DIGITAL & CADOrde red By: Restoration Ecologist on 09-30-2012 BILAT SCRN DIGITAL & CAD See Note Normal [facility] Work Phone: Comment on above: MAMMOGRAPHY - BILATE RAL SCREENING REASON FOR EXAM: Female, 62 years old. Routine annual screeningexamination. PERTINENT HISTORY: Mother with breast cancer. TECHNIQUE: Digital examination. Mediolateral oblique (MLO) andcraniocaudad (CC) views of both breasts were obtained. CAD: CAD wasperformed on this study. COMPARISON: Comparison is made with prior studies dated September 25nd July 18, 2010. FINDINGS:The breast composition is composed of scattered fibroglandular densities. There are no dominant masses or suspicious calcifications. No other significant abnormalities are identified. There has been nosignificant change since the prior study. IMPRESSION:Stable bilateral screening mammogram. Yearly follow-up recommended. (A) ASSESSMENT CATEGORY:BIRADS Category 2: Benign finding(s). A letter regarding these resultswill be sent to the patient by the facility within 30 days. Approximately 10% of breast cancers are not detected by mammography. Anormal mammogram should not delay biopsy of a clinically suspiciousabnormality. Signed:Jorge Johnson M.D.September 30, 2012 at 12:35:10 PM [id number] Signed GP/GP If you are the referring physician and would like to consult with theradiologist who provided this interpretation, please contact Devang Cain at [phone]. If this radiologist is unavailable, youwill be directed to another radiologist to assist. If you are a patient with a question regarding this report, pleasecontactyour referring physician directly. Professional Interpretation Provided By: [employer], Phone , These documents contain legally protected and confidential healthinformation intended only for the use of the individual or entity namedabove. If you are not the intended recipient, you are hereby notifiedthatany disclosure, copying, distribution, or other use of these documents isstrictly prohibited. If you have received this information in error,pleasenotify the sender immediately and arrange for the return or destructionofthese documents. Dictated on 09/30/12 1208 by Brandi RICH,OskarrieleTranscribed on 09/30/12 1245 by ITS IMPORTSign by Jorge Johnson MD on 09/30/12 1246 Sign by: Jorge Johnson MD PARATHORMONE ([id number])Ordered By: Restoration Ecologist on 09-27-2012 Parathyrin.intact mass conc 18 pg/mL Normal 15-65 [facility] Work Phone: Comment on above: PATIENT NOT FASTINGP ERFORMED BY: MONICA [facility] Vxjcry[address] [facility] [place] [id number] PHOSPHORUS ([id number])Ordered By : Restoration Ecologist on 09-27-2012 Phosphate mass conc 3.6 mg/dL Normal 2.5-4.5 Compr [facility] Work Phone: Comment on above: PATIENT NOT FASTINGP ERFORMED BY: CB [facility] Ffmhin[address] [place] [id number] Protein Electro, Random Urin eOrdered By: Restoration Ecologist on 09-27-2012 Albumin/Protein.tota l Elph mass fraction (U) 26.8 % Normal [facility] Work Phone: Comment on above: PATIENT NOT FASTINGP ERFORMED BY: CB [facility] Vzenwf6958 [address] [employer] EducationD[place] [id number] Alpha 1 globulin/Protein.tot al Elph mass fraction (U) 19.9 % Normal [facility] Work Phone: Comment on above: PATIENT NOT FASTINGP ERFORMED BY: CB [facility] Risovj8983 [address] [facility] [id number] Alpha 2 globulin/Protein.tot al Elph mass fraction (U) 11.8 % Normal [facility] Work Phone: Comment on above: PATIENT NOT FASTINGP ERFORMED BY: CB [facility] Eqjjvr3963 [address] RoadDublin [place] [id number] Beta globulin/Protein.tot al Elph mass fraction (U) 18.4 % Normal [facility] Work Phone: Comment on above: PATIENT NOT FASTINGP ERFORMED BY: CB [facility] Erndts5680 [address] RoadCaromont [facility] [place] [id number] Gamma globulin/Protein.tot al Elph mass fraction (U) 23.1 % Normal [facility] Work Phone: Comment on above: PATIENT NOT FASTINGP ERFORMED BY: CB [facility] Qqwneu3795 [address] [facility] [place] [id number] Laboratory comment Caden (Report) SPRCS Normal [facility] Work Phone: Comment on above: Protein electrophore sis scan will follow via computer, mail, orcourier delivery. PATIENT NOT FASTINGP ERFORMED BY: CB [facility] Yuvass3701 [address] [facility] [place] [id number] Protein mass conc (U) mg/dL Normal 0.0-15.0 [facility] Work Phone: Comment on above: Verified by repeat analysis PATIENT NOT FASTINGP ERFORMED BY: CB [facility] Bwynge6096 [address] [facility] [id number] Protein.monoclonal/P rotein.total Elph mass fraction (U) Not Observed Normal [facility] Work Phone: Comment on above: PATIENT NOT FASTINGP ERFORMED BY: CB [facility] Kzrsms6954 [address] [facility] [place] [id number] Protein Electro.,SOrdered By : Restoration Ecologist on 09-27-2012 Albumin mass conc 4.5 g/dL Normal 3.2-5.6 Compreh ensive Internal Medicine Work Phone: Comment on above: PATIENT NOT FASTINGP ERFORMED BY: CB [facility] Rxolif4170 [address] RoadDublin [place] [id number] Albumin/Globulin mass ratio 1.5 {ratio} Normal 0.7-2.0 [facility] Work Phone: Comment on above: PATIENT NOT FASTINGP ERFORMED BY: CB [facility] Hgdyzz2569 [address] RoadDublin [place] [id number] Alpha 1 globulin Elph mass conc 0.3 g/dL Normal 0.1-0.4 [facility] Work Phone: Comment on above: PATIENT NOT FASTINGP ERFORMED BY: CB [facility] Dkabps1089 [address] RoadDublin [place] [id number] Alpha 2 globulin Elph mass conc 0.8 g/dL Normal 0.4-1.2 [facility] Work Phone: Comment on above: PATIENT NOT FASTINGP ERFORMED BY: CB [facility] Xhnizt2679 [address] RoadDuin [place] [id number] Beta globulin Elph mass conc 1.1 g/dL Normal 0.6-1.3 [facility] Work Phone: Comment on above: PATIENT NOT FASTINGP ERFORMED BY: CB [facility] Fovgdt2842 [address]bl[address] [place] [id number] Gamma globulin Elph mass conc 0.9 g/dL Normal 0.5-1.6 [facility] Work Phone: Comment on above: PATIENT NOT FASTINGP ERFORMED BY: CB [facility] Cpqggy4194 [address]bl[address] [place] [id number] Globulin mass conc (S) 3.1 g/dL Normal 2.0-4.5 [facility] Work Phone: Comment on above: PATIENT NOT FASTINGP ERFORMED BY: CB [facility] Akwrvn6835 [address] RoadDublin [place] [id number] Protein mass conc 7.6 g/dL Normal 6.0-8.5 Compreh [facility] Work Phone: Comment on above: PATIENT NOT FASTINGP ERFORMED BY: CB [facility] Qmmztl0530 [address] RoadDublin [place] [id number] Protein.monoclonal Elph mass conc Not Observed Normal [facility] Work Phone: Comment on above: PATIENT NOT FASTINGP ERFORMED BY: MONICA [facility] Fffgik3294 [address] RoadDublin [place] [id number] SED RATE ERYTHROCYTE ([id number]) Ordered By: Restoration Ecologist on 09-27-2012 ESR Velocity (Bld) 22 mm/h Normal 0-40 Compre hensive Internal Medicine Work Phone: Comment on above: PATIENT NOT FASTINGP ERFORMED BY: CB [facility] Dluihw0812 [address] RoadDublin [place] [id number] Calcium Serum (78675)Ordered By: Restoration Ecologist on 09-22-2012 Calcium mass conc 10.7 mg/dL Abnormal 8.6-10.2 Compreh ensive [facility] Medicine Work Phone: Comment on above: PATIENT NOT FASTINGP ERFORMED BY: CB [facility] Siesyf8469 [address] [facility] [id number] Information: [id number] THYROIDOrdered By: System Jillian lara on 09-01-2012 THYROID See Note Normal [facility] Work Phone: Comment on above: PROCEDURE: THYROID U LTRASOUND REASON FOR EXAM: Female, 62 years old. Thyroid nodules. This exam isinfollow-up. TECHNIQUE: Ultrasound evaluation of the thyroid was performed withreal-time and static underwood-scale imaging. COMPARISON: April 24, 2011 FINDINGS: RIGHT LOBE: The right lobe of the thyroid gland measures 4.6 x 2.1 to1.5cm. There is a heterogeneous echotexture. There are multiple smallcystic structures present throughout. The largest of these is denselycalcified and measures 0.9 x 0.7 cm. This is stable when compared to theprevious exam. LEFT LOBE: The left lobe of the thyroid gland measures 3.2 x 1.3 x 0.8cm.There is a heterogeneous echotexture. There are no discrete nodules. ISTHMUS: The isthmus measures 4 mm. IMPRESSION:Stable findings of goiter. Stable small nodules on the right. Signed:Michael Rice M.D.September 01, 2012 at 3:12:06 PM [phone] Signed KELLY/KELLY If you are the referring physician and would like to consult with theradiologist who provided this interpretation, please contact Jermaine Mortensen. at . If this radiologist is unavailable,youwill be directed to another radiologist to assist. If you are a patient with a question regarding this report, pleasecontactyour referring physician directly. Professional Interpretation Provided By: [employer], Phone , These documents contain legally protected and confidential healthinformation intended only for the use of the individual or entity namedabove. If you are not the intended recipient, you are hereby notifiedthatany disclosure, copying, distribution, or other use of these documents isstrictly prohibited. If you have received this information in error,pleasenotify the sender immediately and arrange for the return or destructionofthese documents. Dictated on 09/01/12 1343 by Michael Rice MDTranscribed on 09/01/12 1519 by ITS IMPORTSign by Michael Rice MD on 09/01/12 1520 Sign by: Michael Rice MD LIPID PANEL ([id number])Ordered B y: Restoration Ecologist on 08-26-2012 Cholesterol in HDL mass conc 63 mg/dL Normal [facility] Work Phone: Comment on above: According to ATP-III Guidelines, HDL-C >59 mg/dL is considered anegative risk factor for CHD. PATIENT WAS FASTINGP ERFORMED BY: Hitch6370 [facility] [id number] Cholesterol in LDL mass conc 156 mg/dL Abnormal 0-99 [facility] Work Phone: Comment on above: PATIENT WAS FASTINGP ERFORMED BY: Hitch[address] [place] [id number] Cholesterol in LDL/Cholesterol in HDL mass ratio 2.5 {ratio_units} Normal 0.0-3.2 [facility] Work Phone: Comment on above: PATIENT WAS FASTINGP ERFORMED BY: MONICA LabColisa Bxjlno6420 [address] Man [facility] [place] [id number] Cholesterol in VLDL mass conc 28 mg/dL Normal 5-40 [facility] Work Phone: Comment on above: PATIENT WAS FASTINGP ERFORMED BY: MONICA [facility] Redtun7855 [address] Man [facility] [place] [id number] Cholesterol mass conc 247 mg/dL Abnormal 100-199 [facility] Work Phone: Comment on above: PATIENT WAS FASTINGP ERFORMED BY: MONICA [facility] Uowlmj4657 [address] [facility] [place] [id number] Triglyceride mass conc 142 mg/dL Normal 0-149 [facility] Work Phone: Comment on above: PATIENT WAS FASTINGP ERFORMED BY: MONICA [facility] Hnymww9697 [address] [facility] [id number] METABOLIC PANEL, COMPREHENSI VE ([id number])Ordered By: Restoration Ecologist on 08-26-2012 Albumin mass conc 4.6 g/dL Normal 3.6-4.8 Compreh ensive Internal Medicine Work Phone: Comment on above: PATIENT WAS FASTINGP ERFORMED BY: MONICA Sheri Zjlbmb2438 [facility] [id number] Information: [id number] Albumin/Globulin mass ratio 1.8 {ratio} Normal 1.1-2.5 [facility] Work Phone: Comment on above: PATIENT WAS FASTINGP ERFORMED BY: [facility] Dtxyaj4935 [address] [facility] [id number] Information: [id number] ALP [Catalytic activity/Vol] 105 U/L Normal 25-165 [facility] Work Phone: ALP enzyme act/vol 105 [iU]/L Normal 25-165 Compre [facility]stimpanog[facility] Internal Medicine Work Phone: Comment on above: PATIENT WAS FASTINGP ERFORMED BY: MONICA [facility] Uvxkfw8654 [address] [facility] [id number] Information: [id number] ALT [Catalytic activity/Vol] 20 U/L Normal 0-32 [facility] Work Phone: ALT enzyme act/vol 20 [iU]/L Normal 0-32 [facility] Internal Medicine Work Phone: Comment on above: Please note refere nce interval change PATIENT WAS FASTINGP ERFORMED BY: LabRonald [place] [id number] [facility] [id number] Information: [id number] AST [Catalytic activity/Vol] 20 U/L Normal 0-40 [facility] Internal Medicine Work Phone: AST enzyme act/vol 20 [iU]/L Normal 0-40 [facility] Internal Medicine Work Phone: Comment on above: PATIENT WAS FASTINGP ERFORMED BY: [place] 1142570 [facility] [id number] Information: [id number] Bilirubin mass conc 0.5 mg/dL Normal 0.0-1.2 [facility] Internal Medicine Work Phone: Comment on above: PATIENT WAS FASTINGP ERFORMED BY: [place] 1142570 [facility] [id number] Information: [id number] Calcium mass conc 10.6 mg/dL Abnormal 8.6-10.2 Compreh [facility] Work Phone: Comment on above: PATIENT WAS FASTINGP ERFORMED BY: LabAsc[facility]omb6370 [facility] [id number] Information: [id number] Chloride molar conc 104 mmol/L Normal 97-108 Compr ensive Internal Medicine Work Phone: Comment on above: PATIENT WAS FASTINGP ERFORMED BY: LabAsc[facility] Macomb6370 [facility] [id number] Information: [id number] CO2 molar conc 22 mmol/L Normal 20-32 Comprehens lucio Internal Medicine Work Phone: Comment on above: PATIENT WAS FASTINGP ERFORMED BY: [facility] Kauwup[address]4 [address] [facility] [id number] Information: [id number] Creatinine mass conc 0.86 mg/dL Normal 0.57-1.00 Comp rehensive Internal Medicine Work Phone: Comment on above: PATIENT WAS FASTINGP ERFORMED BY: [facility] Xphwxu9598 [address] [facility] [id number] Information: [id number] GFR/1.73 sq M predicted among blacks CKD-EPI vol rate/area (S/P/Bld) 84 mL/min/1.73 Normal Comprehensiv e Internal Medicine Work Phone: Comment on above: PATIENT WAS FASTINGP ERFORMED BY: [facility] Apnfql5554 [facility] [id number] Information: [id number] GFR/1.73 sq M predicted among non-blacks CKD-EPI vol rate/area (S/P/Bld) 73 mL/min/1.73 Normal [facility] Work Phone: Comment on above: PATIENT WAS FASTINGP ERFORMED BY: [facility] Gyuefv3672 [facility] [id number] Information: [id number] Globulin mass conc (S) 2.6 g/dL Normal 1.5-4.5 [facility] Work Phone: Comment on above: PATIENT WAS FASTINGP ERFORMED BY: [facility] Vrstcs6776 [facility] [id number] Information: [id number] Glucose mass conc 77 mg/dL Normal 65-99 Compreh ensive Internal Medicine Work Phone: Comment on above: PATIENT WAS FASTINGP ERFORMED BY: [facility] Vrjmbx8909 [facility] [id number] Information: [id number] Potassium molar conc 4.6 mmol/L Normal 3.5-5.2 Comp rehensive Internal Medicine Work Phone: Comment on above: PATIENT WAS FASTINGP ERFORMED BY: MONICA RoseColisa JuanAhfffn8320 [address] [facility] [id number] Information: [id number] Protein mass conc 7.2 g/dL Normal 6.0-8.5 Compreh ensive Internal Medicine Work Phone: Comment on above: PATIENT WAS FASTINGP ERFORMED BY: MONICA [facility] Deefob8077 [address] [facility] [id number] Information: [id number] Sodium molar conc 140 mmol/L Normal 134-144 Compreh ensive Internal Medicine Work Phone: Comment on above: PATIENT WAS FASTINGP ERFORMED BY: MONICA Juan6370 [facility] [id number] Information: [id number] Urea nitrogen mass conc 15 mg/dL Normal 8-27 [facility] Work Phone: Comment on above: PATIENT WAS FASTINGP ERFORMED BY: MONICA [facility] Clowjb1758 [facility] [id number] Information: [id number] Urea nitrogen/Creatinine mass ratio 17 mg/mg Normal 11- [facility] Work Phone: Comment on above: PATIENT WAS FASTINGP ERFORMED BY: MONICA [facility] Mnxkpm2453 [facility] [id number] Information: [id number] TSH ([id number])Ordered By: Syste m Ship Fitter on 08-26-2012 Thyrotropin Qn 1.370 {uIU/mL} Normal 0.450-4.50 0 [facility] Work Phone: Comment on above: PATIENT WAS FASTINGP ERFORMED BY: MONICA [facility] Zuxchr7513 [facility] [id number] Vitamin D Hydroxy (47071)Ord ered By: Restoration Ecologist on 08-26-2012 25-Hydroxyvitamin D2+25-Hydroxyvitamin D3 mass conc 40.2 ng/mL Normal 30.0-100.0 [facility] Work Phone: Comment on above: Vitamin D deficiency has been defined by the [place] and an Endocrine Society practice guideline as alevel of serum 25-OH vitamin D less than 20 ng/mL (1,2).The Endocrine Society went on to further define vitamin Dinsufficiency as a level between 21 and 29 ng/mL (2).1. IOM ([place]). 2010. Dietary reference intakes for calcium and D. [place]: The National Academies Press.2. Hernesto MF, Carolyn JEONG, Christoph AYOUB, et al. Evaluation, treatment, and prevention of vitamin D deficiency: an Endocrine Society clinical practice guideline. JCEM. 2010; 96(7):1911-30. PATIENT WAS FASTINGP ERFORMED BY: [facility] Xyzkbe4446 [facility] [id number] CMPOrdered By: System Manage r on 01-19-2012 Albumin mass conc 3.8 g/dL Normal 3.4-5.0 Compreh [facility] Work Phone: Albumin/Globulin mass ratio 1.0 {RATIO} Normal 0.9-2.4 [facility] Internal Medicine Work Phone: ALP enzyme act/vol 110 U/L Normal 50-136 [facility] Internal Medicine Work Phone: ALT enzyme act/vol 28 U/L Normal 12-78 [facility] Internal Medicine Work Phone: Anion gap molar conc 6 mmol/L Normal 5-15 Comp [facility] Internal Medicine Work Phone: AST enzyme act/vol 8 U/L Abnormal 15-37 [facility] Internal Medicine Work Phone: Bilirubin mass conc 0.40 mg/dL Normal 0.00-1.00 Compr [facility] Internal Medicine Work Phone: Calcium mass conc 9.3 mg/dL Normal 8.5-10.1 [facility] Work Phone: Chloride molar conc 106 mmol/L Normal 98-107 Compr [facility] Internal Medicine Work Phone: CO2 molar conc 27.0 mmol/L Normal 21.0-32.0 Comprehen sive Internal Medicine Work Phone: Creatinine mass conc 0.8 mg/dL Normal 0.6-1.0 Comp rehensive Internal Medicine Work Phone: GFR/1.73 sq M predicted among blacks MDRD vol rate/area (S/P/Bld) 95 mL/min/{1.73_m2} Normal Comprehe nsive Internal Medicine Work Phone: GFR/1.73 sq M.predicted MDRD vol rate/area 78 mL/min/{1.73_m2} Normal Comprehensiv e Internal Medicine Work Phone: Globulin mass conc (S) 3.8 g/dL Normal 2.7-4.2 [facility] Work Phone: Glucose mass conc 90 mg/dL Normal 70-110 Compreh ensive Internal Medicine Work Phone: Potassium molar conc 4.1 mmol/L Normal 3.5-5.1 Comp rehensive Internal Medicine Work Phone: Protein mass conc 7.6 g/dL Normal 6.4-8.2 Compreh ensive Internal Medicine Work Phone: Sodium molar conc 139 mmol/L Normal 136-145 Compreh ensive Internal Medicine Work Phone: Urea nitrogen mass conc 11 mg/dL Normal 7-18 [facility] Work Phone: Urea nitrogen/Creatinine mass ratio 13.8 {RATIO} Normal 10-20 [facility] Work Phone: LIPIDOrdered By: Viktor brown on 01-19-2012 Cholesterol in HDL mass conc 50 mg/dL Normal [facility] Work Phone: Comment on above: Reference Range HDL <40 mg/dL Low HDL Cholesterol HDL >or= 60 mg/dL High HDL Cholesterol Cholesterol in LDL mass conc 124 mg/dL Normal 0-130 [facility] Work Phone: Cholesterol in VLDL mass conc 39 mg/dL Normal 5-40 [facility] Work Phone: Cholesterol mass conc 213 mg/dL Abnormal [facility] Work Phone: Comment on above: <200 mg/dL Desirable 200-240 mg/dL Borderline >240 mg/dL High Risk Triglyceride mass conc 197 mg/dL Normal [facility] Work Phone: Comment on above: Serum Triglycerides Reference Interval Normal <150 mg/dL Borderline high 150 - 199 mg/dL High 200 - 499 mg/dL Very High > or = 500 mg/dL VITDOrdered By: System Manag er on 01-19-2012 VITD 38.6 ng/mL Normal 30.0-100.0 [facility] Work Phone: Comment on above: Vitamin D deficiency has been defined by the [place] and an Endocrine Society practice guideline as alevel of serum 25-OH vitamin D less than 20 ng/mL (1,2).The Endocrine Society went on to further define vitamin Dinsufficiency as a level between 21 and 29 ng/mL (2).1. IOM ([place]). 2010. Dietary reference intakes for calcium and D. [place]: The National Academies Press.2. Hernesto MF, Carolyn JEONG, Christoph AYOUB, et al. Evaluation, treatment, and prevention of vitamin D deficiency: an Endocrine Society clinical practice guideline. JCEM. 2010; 96(7):1911-30.Performed at: [address] [id number] Director: Jenni Grimes MD, Phone: [phone] BILAT SCRN DIGITAL & CADOrde red By: Restoration Ecologist on 09-25-2011 BILAT SCRN DIGITAL & CAD See Note Normal [facility] Work Phone: Comment on above: MAMMOGRAPHY - BILATE RAL SCREENING REASON FOR EXAM: Female, 61 years old. Routine annual screeningexamination. PERTINENT HISTORY: Non-contributory. TECHNIQUE: Digital examination. Mediolateral oblique (MLO) andcraniocaudad (CC) views of both breasts were obtained. CAD: CAD wasperformed on this study. COMPARISON: Comparison is made with prior study dated July 18, 2010. FINDINGS:The breast composition is composed of scattered fibroglandular densities. There are no masses or suspicious microcalcifications. No other significant abnormalities are identified. There has been nosignificant change since the prior study. IMPRESSION:Normal bilateral screening mammogram. One year follow-up recommended. (A) ASSESSMENT CATEGORY:BIRADS Category 2: Benign finding(s). A letter regarding these resultswill be sent to the patient by the facility within 30 days. Approximately 10% of breast cancers are not detected by mammography. Anormal mammogram should not delay biopsy of a clinically suspiciousabnormality. To consult with a radiologist regarding this report, please call our [id number] line @ Dictated on 09/25/11 1653 by Brandi RICH,Ranranscribed on 09/26/11 1144 by ITS IMPORTSign by Brandi RICH,Jorge on 09/26/11 1145 Sign by: Jorge Johnson MD DEXA BONE DENSITY STUDY (HP) Ordered By: Restoration Ecologist on 07-17-2011 DEXA BONE DENSITY STUDY (HP) See Note Normal [facility] Work Phone: Comment on above: PROCEDURE: DUAL ENER GY X-RAY ABSORPTIOMETRY / DEXA. REASON FOR EXAM: Female, 61 years old. The patient has a history ofosteopenia. TECHNIQUE: Bone Mineral Density (BMD) measurements of lumbar spine andbilateral hips were obtained. COMPARISON: Comparison is made with prior study dated June. FINDINGS: Lumbar Spine (L1-L4): g/cm2 (1.120) / T-score (-0.5) / Z-score (0.8)Left Femur Total: g/cm2 (1.050) / T-score (0.3) / Z-score (1.3)Right Femur Total: g/cm2 (1.058) / T-score (0.4) / Z-score (1.4) There has been essentially no change since prior study. IMPRESSION:The patient is considered normal, as outlined below according to WorldHealth Organization (WHO) criteria. Fracture risk is low. Reference Information:The T-score is the number of standard deviations above or below thestandard which is normal for young adults at their peak bone mineraldensity. The World Health Organization (WHO) interprets the T-scores asfollows: Above -1 Normal bone densityBetween -1 and -2.5 OsteopeniaEqual to / or below -2.5 Osteoporosis As a practical clinical guideline, osteopenia may be graded as follows:Mild -1 through -1.5Moderate -1.6 through -2.0Severe -2.1 through -2.4 The Z-score is the number of standard deviations above or below age-matchedcontrols. A Z-score of less than -1.5 would be considered abnormal. References:1. NIH Osteoporosis and Related Bone Diseases http://www.osteo.org2. International Society for Clinical Densitometry http://www.iscd.org3. National Osteoporosis Foundation http://www.nof.org Dictated on 07/17/11 1053 by Ran Johnson MDranscribed on 07/17/11 1229 by ITS IMPORTSign by Jorge Johnson MD on 07/17/11 1229 Sign by: Jorge Johnson MD CAOrdered By: Restoration Ecologist on 07-12-2011 Calcium mass conc 9.9 mg/dL Normal 8.5-10.1 Compreh ensive Internal Medicine Work Phone: LIPIDOrdered By: System [place] stephanie on 07-12-2011 Cholesterol in HDL mass conc 51 mg/dL Normal [facility] Work Phone: Comment on above: Reference Range HDL <40 mg/dL Low HDL Cholesterol HDL >or= 60 mg/dL High HDL Cholesterol Cholesterol in LDL mass conc 158 mg/dL Abnormal 0-130 [facility] Work Phone: Cholesterol in VLDL mass conc 23 mg/dL Normal 5-40 [facility] Work Phone: Cholesterol mass conc 232 mg/dL Abnormal [facility] Work Phone: Comment on above: <200 mg/dL Desirable 200-240 mg/dL Borderline >240 mg/dL High Risk Triglyceride mass conc 117 mg/dL Normal [facility] Work Phone: Comment on above: Serum Triglycerides Reference Interval Normal <150 mg/dL Borderline high 150 - 199 mg/dL High 200 - 499 mg/dL Very High > or = 500 mg/dL TSHOrdered By: System Manage r on 07-12-2011 Thyrotropin Qn 1.31 {uIU/mL} Normal 0.358-3.74 Compreh ensive Internal Medicine Work Phone: VIT D,25 [id number] By: [employer] stem Ship Fitter on 07-12-2011 VIT D,25 79603 31.9 ng/mL Abnormal 32.0-100.0 Comprehens [facility] Internal Medicine Work Phone: Comment on above: Effective Novembe r 2010 Vitamin D, 25-Hydroxy reference intervals will be changing to 30-100. .Recent studies consider the lower limit of 32.0 ng/mL to be athreshold for optimal health.Aries ANDERSON. J Nutr. 2004;135(2):317-22.Performed at: [address] Director: Jenni Grimes MD, Phone: [phone] THYROIDOrdered By: System Jillian lara on 04-24-2011 THYROID See Note Normal [facility] Work Phone: Comment on above: PROCEDURE: THYROID U LTRASOUND REASON FOR EXAM: Female, 61 years old. Thyroid nodule. TECHNIQUE: Ultrasound evaluation of the thyroid was performed withreal-time ultrasonography and static grayscale imaging. COMPARISON: Thyroid ultrasound of April 17, 2010. FINDINGS: RIGHT LOBE: The right lobe is mildly enlarged. The right lobe of thethyroid gland measures 5.5 x 1.3 x 1.8 cm. This is not essentiallychangedwhen compared to prior study as I went back and reviewed the measurementsand believe the cursors on the prior study were not in the same positionason the current exam. There is a heterogeneous echotexture with smallhypoechoic areas. A calcified mass is again seen in the right lobe thatmeasures approximate 8 mm in size. No interval change. LEFT LOBE: Normal size of the left lobe of the thyroid. The left lobeofthe thyroid gland measures 3.7 x 1.5 x 1.3 cm. This is not significantlychanged. There is a heterogeneous echotexture with normal echogenicity.There are no demonstrated solid, cystic or complex lesions. ISTHMUS: The isthmus measures 0.3 cm. IMPRESSION:Stable asymmetric goiter involving the right lobe that contains a stablecalcified nodule. Dictated on 04/24/1130 by DALILA ASHLEY DOTranscribed on 04/25/111115 by ITS IMPORTSign by DALILA ASHLEY DO on 04/25/111115 Sign by: DALILA ASHLEY DO CAOrdered By: Restoration Ecologist on 02-21-2011 Calcium mass conc 9.9 mg/dL Normal 8.5-10.1 Compreh ensive Internal Medicine Work Phone: VIT D,25 [id number] By: Sy stem Ship Fitter on 02-21-2011 VIT D,25 41936 22.5 ng/mL Abnormal 32.0-100.0 Comprehens [facility] Internal Medicine Work Phone: Comment on above: Recent studies consi cuong the lower limit of 32.0 ng/mL to avi threshold for optimal health.Aries ANDERSON. J Nutr. 2004;135(2):317-22.Performed at: [address] [id number] Director: Jenni Grimes MD, Phone: [phone] COMP METABOLICOrdered By: Sy stem Ship Fitter on 08-29-2010 Albumin mass conc 4.1 g/dL Normal 3.4-5.0 Compreh ensive Internal Medicine Work Phone: Albumin/Globulin mass ratio 1.1 {RATIO} Normal 0.9-2.4 [facility] Work Phone: ALP enzyme act/vol 91 U/L Normal 50-136 Compre hensive Internal Medicine Work Phone: ALT enzyme act/vol 29 U/L Normal 12-78 [facility] Work Phone: Anion gap molar conc 6 mmol/L Normal 5-15 Comp rehensive Internal Medicine Work Phone: AST enzyme act/vol 17 U/L Normal 15-37 [facility]pre [facility] Work Phone: Bilirubin mass conc 0.60 mg/dL Normal 0.00-1.00 Compr ehensive Internal Medicine Work Phone: Calcium mass conc 10.5 mg/dL Abnormal 8.5-10.1 Compreh ensive Internal Medicine Work Phone: Chloride molar conc 106 mmol/L Normal 98-107 Compr ehensive Internal Medicine Work Phone: CO2 molar conc 27.0 mmol/L Normal 21.0-32.0 Comprehen sive Internal Medicine Work Phone: Creatinine mass conc 0.7 mg/dL Normal 0.6-1.0 Comp rehensive Internal Medicine Work Phone: GFR/1.73 sq M predicted among blacks MDRD vol rate/area (S/P/Bld) 110 mL/min/{1.73_m2} Normal Compreh ensive Internal Medicine Work Phone: GFR/1.73 sq M.predicted MDRD vol rate/area 91 mL/min/{1.73_m2} Normal Comprehensiv e Internal Medicine Work Phone: Globulin mass conc (S) 3.8 g/dL Normal 2.7-4.2 [facility] Work Phone: Glucose mass conc 85 mg/dL Normal 70-110 Compreh ensive Internal Medicine Work Phone: Potassium molar conc 4.9 mmol/L Normal 3.5-5.1 Comp rehensive Internal Medicine Work Phone: Protein mass conc 7.9 g/dL Normal 6.4-8.2 Compreh ensive Internal Medicine Work Phone: Sodium molar conc 139 mmol/L Normal 136-145 Compreh ensive Internal Medicine Work Phone: Urea nitrogen mass conc 19 mg/dL Abnormal -18 [facility] Work Phone: Urea nitrogen/Creatinine mass ratio 27.1 {RATIO} Abnormal 10-20 [facility] Work Phone: LIPIDOrdered By: Viktor brown on 08-29-2010 Cholesterol in HDL mass conc 56 mg/dL Normal [facility] Work Phone: Comment on above: Reference Range HDL <40 mg/dL Low HDL Cholesterol HDL >or= 60 mg/dL High HDL Cholesterol Cholesterol in LDL mass conc 178 mg/dL Abnormal 0-130 [facility] Work Phone: Cholesterol in VLDL mass conc 26 mg/dL Normal 5-40 [facility] Work Phone: Cholesterol mass conc 260 mg/dL Abnormal [facility] Work Phone: Comment on above: <200 mg/dL Desirable 200-240 mg/dL Borderline >240 mg/dL High Risk Triglyceride mass conc 128 mg/dL Normal [facility] Work Phone: Comment on above: Serum Triglycerides Reference Interval Normal <150 mg/dL Borderline high 150 - 199 mg/dL High 200 - 499 mg/dL Very High > or = 500 mg/dL PTH,IntactOrdered By: Restoration Ecologist on 08-29-2010 PTH,Intact 63 pg/mL Normal 14-72 [facility] Work Phone: TSHOrdered By: System Manage r on 08-29-2010 Thyrotropin Qn 0.87 {uIU/mL} Normal 0.358-3.74 Compreh ensive Internal Medicine Work Phone: BILAT SCRN DIGITAL & CADOrde red By: Restoration Ecologist on 07-18-2010 BILAT SCRN DIGITAL & CAD See Note Normal [facility] Work Phone: Comment on above: Exam Number: [id number] AMMOGRAPHY - BILATERAL SCREENING INDICATION:Routine annual screening examination. PERTINENT HISTORY:Mother with breast cancer. TECHNIQUE:Digital examination. Mediolateral oblique (MLO) and craniocaudad (CC) views of both breasts were obtained. CAD was performed on this study. COMPARISON:May 16, 2007 and June 03, 2009 FINDINGS:The breast composition isheterogeneously dense.There are no masses or suspicious microcalcifications. No other significant abnormalities are identified. IMPRESSION:Normal bilateral screening mammogram. Yearly follow-up recommended. ASSESSMENT CATEGORY:Category 2: Benign finding(s) Approximately 10% of breast cancers are not detected by mammography. A normal mammogram should not delay biopsy of a clinically suspicious abnormality.This addendum is being created for the purpose of attaching a ResultCode to this exam. ADDENDUM: [id number] HPBI/MDS Reported By: MARTITA VELÁZQUEZ M.D. LIPID PANEL ([id number])Ordered B y: Restoration Ecologist on 06-07-2010 Cholesterol in HDL mass conc 52 mg/dL Normal [facility] Work Phone: Comment on above: According to ATP-III Guidelines, HDL-C >59 mg/dL is considered anegative risk factor for CHD. PATIENT WAS FASTINGP ERFORMED BY: CB [facility] Qewgbr7[address]Dublin [place] [id number] Cholesterol in LDL mass conc 167 mg/dL Abnormal 0-99 [facility] Work Phone: Comment on above: PATIENT WAS FASTINGP ERFORMED BY: CB [facility] Lljnut3736 [address]Dublin [place] [id number] Cholesterol in LDL/Cholesterol in HDL mass ratio 3.2 {ratio_units} Normal 0.0-3.2 [facility] Work Phone: Comment on above: PATIENT WAS FASTINGP ERFORMED BY: CB [facility] Zepfjq29[address] RoadDublin [place] [id number] Cholesterol in VLDL mass conc 44 mg/dL Abnormal 5-40 [facility] Work Phone: Comment on above: PATIENT WAS FASTINGP ERFORMED BY: CB [facility] Qdcjjn9[address]Dublin [place] [id number] Cholesterol mass conc 263 mg/dL Abnormal 100-199 [facility] Work Phone: Comment on above: PATIENT WAS FASTINGP ERFORMED BY: CB [facility] Vcvicp6[address]Dublin [place] [id number] Triglyceride mass conc 219 mg/dL Abnormal 0-149 [facility] Work Phone: Comment on above: PATIENT WAS FASTINGP ERFORMED BY: CB [facility] Zjygho037[address]Dublin [place] [id number] METABOLIC PANEL, COMPREHENSI VE ([id number])Ordered By: Restoration Ecologist on 06-07-2010 Albumin mass conc 4.6 g/dL Normal 3.6-4.8 Compreh ensive Internal Medicine Work Phone: Comment on above: PATIENT WAS FASTINGP ERFORMED BY: MONICA RoseRonald [place] [id number] [facility] [id number] Information: [id number] Albumin/Globulin mass ratio 1.8 {ratio} Normal 1.1-2.5 [facility] Internal Medicine Work Phone: Comment on above: PATIENT WAS FASTINGP ERFORMED BY: [place] [id number] [facility] [id number] Information: [id number] ALP [Catalytic activity/Vol] 101 U/L Normal 25-165 [facility] Work Phone: ALP enzyme act/vol 101 [iU]/L Normal 25-165 [facility] Internal Medicine Work Phone: Comment on above: PATIENT WAS FASTINGP ERFORMED BY: MONICA [place] [id number] [facility] [id number] Information: [id number] ALT [Catalytic activity/Vol] 26 U/L Normal 0-40 [facility] Work Phone: ALT enzyme act/vol 26 [iU]/L Normal 0-40 [facility] Internal Medicine Work Phone: Comment on above: PATIENT WAS FASTINGP ERFORMED BY: MONICA [facility] [id number] Information: [id number] AST [Catalytic activity/Vol] 19 U/L Normal 0-40 [facility] Work Phone: AST enzyme act/vol 19 [iU]/L Normal 0-40 [facility] Internal Medicine Work Phone: Comment on above: PATIENT WAS FASTINGP ERFORMED BY: MONICA [facility] Zxjbwl9431 [facility] [id number] Information: [id number] Bilirubin mass conc 0.4 mg/dL Normal 0.0-1.2 [facility] Internal Medicine Work Phone: Comment on above: PATIENT WAS FASTINGP ERFORMED BY: MONICA [facility] [address]gu[address] [facility] [id number] Information: [id number] Calcium mass conc 10.4 mg/dL Abnormal 8.6-10.2 Compreh ensive Internal Medicine Work Phone: Comment on above: PATIENT WAS FASTINGP ERFORMED BY: [facility] Mfctkn[address] [facility] [id number] Information: [id number] Chloride molar conc 103 mmol/L Normal 97-108 Compr ehensive Internal Medicine Work Phone: Comment on above: PATIENT WAS FASTINGP ERFORMED BY: [facility] Kvleef[address] [facility] [id number] Information: [id number] CO2 molar conc 26 mmol/L Normal 20-32 Comprehens [facility] Internal Medicine Work Phone: Comment on above: PATIENT WAS FASTINGP ERFORMED BY: MONICA [facility] Rddjju5626 [facility] [id number] Information: [id number] Creatinine mass conc 0.75 mg/dL Normal 0.57-1.00 Comp rehensive Internal Medicine Work Phone: Comment on above: PATIENT WAS FASTINGP ERFORMED BY: MONICA [facility] Sgswtd2889 [facility] [id number] Information: [id number] GFR/1.73 sq M predicted among blacks MDRD vol rate/area (S/P/Bld) mL/min/{1.73_m2} Normal Comprehensi ve Internal Medicine Work Phone: Comment on above: Note: Persistent red uction for 3 months or more in an eGFR<60 mL/min/1.73 m2 defines CKD. Patients with eGFR values>/=60 mL/min/1.73 m2 may also have CKD if evidence of persistentproteinuria is present. Additional information may be found [email or web address]. PATIENT WAS FASTINGP ERFORMED BY: MONICA [facility] Ydiprz1411 [facility] [id number] Information: [id number] GFR/1.73 sq M.predicted MDRD (S/P/Bld) [Vol rate/Area] mL/min/{1.73_m2} Normal [facility] Work Phone: Comment on above: PATIENT WAS FASTINGP ERFORMED BY: [facility]Asc[facility]6370 [facility] [id number] Information: [id number] GFR/1.73 sq M.predicted MDRD vol rate/area mL/min/{1.73_m2} Normal [facility] Work Phone: Comment on above: PATIENT WAS FASTINGP ERFORMED BY: [facility]Asc[facility]6370 [facility] [id number] Information: [id number] Globulin mass conc (S) 2.6 g/dL Normal 1.5-4.5 [facility] Work Phone: Comment on above: PATIENT WAS FASTINGP ERFORMED BY: [facility] Iffuhd5892 [facility] [id number] Information: [id number] Glucose mass conc 94 mg/dL Normal 65-99 Compreh ensive Internal Medicine Work Phone: Comment on above: PATIENT WAS FASTINGP ERFORMED BY: [facility] Vegwjc8516 [facility] [id number] Information: [id number] Potassium molar conc 4.5 mmol/L Normal 3.5-5.2 Comp rehensive Internal Medicine Work Phone: Comment on above: PATIENT WAS FASTINGP ERFORMED BY: [facility] Cmkevr1441 [facility] [id number] Information: [id number] Protein mass conc 7.2 g/dL Normal 6.0-8.5 Compreh ensive Internal Medicine Work Phone: Comment on above: PATIENT WAS FASTINGP ERFORMED BY: [facility]6370 [facility] [id number] Information: [id number] Sodium molar conc 141 mmol/L Normal 135-145 Compreh ensive Internal Medicine Work Phone: Comment on above: PATIENT WAS FASTINGP ERFORMED BY: [facility]6370 [facility] [id number] Information: [id number] Urea nitrogen mass conc 13 mg/dL Normal 5- [facility] Work Phone: Comment on above: PATIENT WAS FASTINGP ERFORMED BY: [facility]6370 [facility] [id number] Information: [id number] Urea nitrogen/Creatinine mass ratio 17 mg/mg Normal 8- [facility] Work Phone: Comment on above: PATIENT WAS FASTINGP ERFORMED BY: [facility]6370 [facility] [id number] Information: [id number] TSH ([id number])Ordered By: Syste m Ship Fitter on 06-07-2010 Thyrotropin Qn 0.144 {uIU/mL} Abnormal 0.450-4.50 0 [facility] Work Phone: Comment on above: PATIENT WAS FASTINGP ERFORMED BY: [facility]6370 [facility] [id number] MYOCARD PERF STRESS/REST MUL TOrdered By: Restoration Ecologist on 05-01-2010 MYOCARD PERF STRESS/REST MULT See Note Normal [facility] Work Phone: Comment on above: Exam Number: [id number] MYOCARDIAL PERFUSION SCAN 3.3 mCi of Thallium 201 was injected at rest. Patient exercisedaccording to the regular Ramon protocol for 8 minutes attaining 83% ofmaximum predicted heart rate at a workload of 10.1 METs. At peakexercise 31.9 mCi of Sestamibi was injected. Stress images were thenobtained. Stress and rest images were reconstructed and compared inthe short axis, vertical long and horizontal long axes. Gated imageswere also obtained. Review of the stress images demonstrate normal uptake of tracer notedin all areas of the myocardium. The resting images similarlydemonstrate normal uptake of tracer in all areas of the myocardium.The gated ejection fraction was noted to be 70%. No reversibility isnoted to suggest ischemia. CONCLUSION1. Normal exercise myocardial perfusion scan.2. Preserved ejection fraction. Reported By: MISAEL MARIE M.D. THYROID ()Ordered By: Syst em Ship Fitter on 04-17-2010 THYROID () See Note Normal Comprehensiv e Internal Medicine Work Phone: Comment on above: Exam Number: [id number] CLINICAL:This is a 60-year-old female patient with history of right-sidedthyroid nodule. ULTRASOUND THYROID TECHNIQUE:Multiple views of the thyroid gland were obtained. COMPARISON:Comparison is made with prior study dated July 19, 2007. FINDINGS:The right lobe of the thyroid measures 4.6 cm in sagittal dimensionby 2 cm in AP dimension by 2 cm in transverse dimension. It is ofheterogeneous echotexture. Once again, there is a 7 mm x 7 mm x 7mm solid nodule with shadowing in the upper midportion of the rightlobe. This is unchanged. The left lobe of the thyroid measures 3.9 cm in sagittal dimensionby 1 cm in AP dimension by 1.3 cm in transverse dimension. It is ofheterogeneous echotexture. No solid or cystic mass lesion is seen. Normal thyroid isthmus. There is no perithyroid pathology. IMPRESSION:Solid nodule in the right lobe of the thyroid. There has been nochange since prior study. Reported By: JORGE JOHNSON CBC WITH MANUAL DIFF ([id number]) Ordered By: Restoration Ecologist on 04-16-2010 Basophils #/vol (Bld) 0.0 {x10E3/uL} Normal 0.0-0.2 [facility] Work Phone: Comment on above: PATIENT WAS FASTINGP ERFORMED BY: LabCoBristol-Myers Squibb Children's HospitalUdgene8629 [facility] [id number] Information: [id number] Basophils (Bld) [#/Vol] 0.0 10*3/uL Normal 0.0-0.2 [facility] Work Phone: Basophils/100 WBC (Bld) 1 % Normal 0-3 [facility] Work Phone: Comment on above: PATIENT WAS FASTINGP ERFORMED BY: [place] 1142570 [facility] [id number] Information: [id number] Eosinophils #/vol (Bld) 0.2 {x10E3/uL} Normal 0.0-0.4 [facility] Work Phone: Comment on above: PATIENT WAS FASTINGP ERFORMED BY: [address] [id number] Information: [id number] Eosinophils (Bld) [#/Vol] 0.2 10*3/uL Normal 0.0-0.4 [facility] Work Phone: Eosinophils/100 WBC (Bld) 3 % Normal 0-7 [facility] Work Phone: Comment on above: PATIENT WAS FASTINGP ERFORMED BY: [place] 1142570 [facility] [id number] Information: [id number] Erythrocyte distribution width Ratio (RBC) 13.3 % Normal 11.7-15.0 [facility] Work Phone: Comment on above: PATIENT WAS FASTINGP ERFORMED BY: [address] [id number] Information: [id number] Hematocrit Volume Fraction (Bld) 39.7 % Normal 34.0-44.0 [facility] Work Phone: Comment on above: PATIENT WAS FASTINGP ERFORMED BY: [place] 1142570 [facility] [id number] Information: [id number] Hemoglobin mass conc (Bld) 14.3 g/dL Normal 11.5-15.0 [facility] Work Phone: Comment on above: PATIENT WAS FASTINGP ERFORMED BY: [address] [id number] Information: [id number] Immature granulocytes #/vol (Bld) 0.0 {x10E3/uL} Normal 0.0-0.1 [facility] Work Phone: Comment on above: PATIENT WAS FASTINGP ERFORMED BY: [place] 1142570 [facility] [id number] Information: [id number] Immature granulocytes (Bld) [#/Vol] 0.0 10*3/uL Normal 0.0-0.1 [facility] Work Phone: Immature granulocytes/100 WBC (Bld) 0 % Normal 0-1 [facility] Work Phone: Comment on above: PATIENT WAS FASTINGP ERFORMED BY: [address] [id number] Information: [id number] Lymphocytes #/vol (Bld) 2.4 {x10E3/uL} Normal 0.7-4.5 [facility] Work Phone: Comment on above: PATIENT WAS FASTINGP ERFORMED BY: [place] 1142570 [facility] [id number] Information: [id number] Lymphocytes (Bld) [#/Vol] 2.4 10*3/uL Normal 0.7-4.5 [facility] Work Phone: Lymphocytes/100 WBC (Bld) 43 % Normal 14-46 [facility] Work Phone: Comment on above: PATIENT WAS FASTINGP ERFORMED BY: [place] 1142570 [facility] [id number] Information: [id number] MCH Entitic mass (RBC) 31.6 pg Normal 27.0-34.0 [facility] Work Phone: Comment on above: PATIENT WAS FASTINGP ERFORMED BY: [place] 1142570 [facility] [id number] Information: [id number] MCHC mass conc (RBC) 36.0 g/dL Normal 32.0-36.0 [facility] Work Phone: Comment on above: PATIENT WAS FASTINGP ERFORMED BY: MONICA [facility]6370 [facility] [id number] Information: [id number] MCV Entitic volume (RBC) 88 fL Normal 80-98 [facility] Work Phone: Comment on above: PATIENT WAS FASTINGP ERFORMED BY: [address] [id number] Information: [id number] Monocytes #/vol (Bld) 0.3 {x10E3/uL} Normal 0.1-1.0 [facility] Work Phone: Comment on above: PATIENT WAS FASTINGP ERFORMED BY: [place] 1142570 [facility] [id number] Information: [id number] Monocytes (Bld) [#/Vol] 0.3 10*3/uL Normal 0.1-1.0 [facility] Work Phone: Monocytes/100 WBC (Bld) 5 % Normal 4-13 [facility] Work Phone: Comment on above: PATIENT WAS FASTINGP ERFORMED BY: [place] 1142570 [facility] [id number] Information: [id number] Neutrophils #/vol (Bld) 2.7 {x10E3/uL} Normal 1.8-7.8 [facility] Work Phone: Comment on above: PATIENT WAS FASTINGP ERFORMED BY: [place] 1142570 [facility] [id number] Information: [id number] Neutrophils (Bld) [#/Vol] 2.7 10*3/uL Normal 1.8-7.8 [facility] Work Phone: Neutrophils/100 WBC (Bld) 48 % Normal 40-74 [facility] Work Phone: Comment on above: PATIENT WAS FASTINGP ERFORMED BY: MONICA [place] 8656970 [facility] [id number] Information: [id number] Platelets #/vol (Bld) 239 {x10E3/uL} Normal 140-415 [facility] Work Phone: Comment on above: PATIENT WAS FASTINGP ERFORMED BY: [place] 1142570 [facility] [id number] Information: [id number] Platelets (Bld) [#/Vol] 239 10*3/uL Normal 140-415 [facility] Work Phone: RBC #/vol (Bld) 4.53 {x10E6/uL} Normal 3.80-5.10 Comp [facility] Internal Medicine Work Phone: Comment on above: PATIENT WAS FASTINGP ERFORMED BY: [place] 1142570 [facility] [id number] Information: [id number] RBC (Bld) [#/Vol] 4.53 10*6/uL Normal 3.80-5.10 Compr [facility] Internal Medicine Work Phone: WBC #/vol (Bld) 5.6 {x10E3/uL} Normal 4.0-10.5 [facility] Internal Medicine Work Phone: Comment on above: PATIENT WAS FASTINGP ERFORMED BY: [place] 1142570 [facility] [id number] Information: [id number] WBC (Bld) [#/Vol] 5.6 10*3/uL Normal 4.0-10.5 [facility] Work Phone: LIPID PANEL ([id number])Ordered B y: Restoration Ecologist on 04-16-2010 Cholesterol in HDL mass conc 59 mg/dL Normal [facility] Work Phone: Comment on above: According to ATP-III Guidelines, HDL-C >59 mg/dL is considered anegative risk factor for CHD. PATIENT WAS FASTINGP ERFORMED BY: MONICA Tatelin[address] [facility] [place] [id number] Cholesterol in LDL mass conc 182 mg/dL Abnormal 0-99 [facility] Work Phone: Comment on above: PATIENT WAS FASTINGP ERFORMED BY: MONICA Tatelin[address] [facility] [id number] Cholesterol in LDL/Cholesterol in HDL mass ratio 3.1 {ratio_units} Normal 0.0-3.2 [facility] Work Phone: Comment on above: PATIENT WAS FASTINGP ERFORMED BY: MONICA Juan6370 [facility] [id number] Cholesterol in VLDL mass conc 30 mg/dL Normal 5-40 [facility] Work Phone: Comment on above: PATIENT WAS FASTINGP ERFORMED BY: MONICA Tatelin6370 [facility] [id number] Cholesterol mass conc 271 mg/dL Abnormal 100-199 [facility] Work Phone: Comment on above: PATIENT WAS FASTINGP ERFORMED BY: MONICA Juan6370 [facility] [id number] Triglyceride mass conc 149 mg/dL Normal 0-149 [facility] Work Phone: Comment on above: PATIENT WAS FASTINGP ERFORMED BY: MONICA Juan6370 [facility] [id number] METABOLIC PANEL, COMPREHENSI VE ([id number])Ordered By: Restoration Ecologist on 04-16-2010 Albumin mass conc 4.6 g/dL Normal 3.6-4.8 Compreh ensive Internal Medicine Work Phone: Comment on above: PATIENT WAS FASTINGP ERFORMED BY: MONICA Tatelin6370 [facility] [id number] Albumin/Globulin mass ratio 1.6 {ratio} Normal 1.1-2.5 [facility] Work Phone: Comment on above: PATIENT WAS FASTINGP ERFORMED BY: MONICA Tatelin[address]Dublin [place] [id number] ALP [Catalytic activity/Vol] 105 U/L Normal 25-165 [facility] Work Phone: ALP enzyme act/vol 105 [iU]/L Normal 25-165 [facility] Internal Medicine Work Phone: Comment on above: PATIENT WAS FASTINGP ERFORMED BY: MONICA Tatelin[address]bl[address] [place] [id number] ALT [Catalytic activity/Vol] 21 U/L Normal 0-40 [facility] Work Phone: ALT enzyme act/vol 21 [iU]/L Normal 0-40 [facility] Internal Medicine Work Phone: Comment on above: PATIENT WAS FASTINGP ERFORMED BY: MONICA Tatelin6[address] RoadUNC Health [id number] AST [Catalytic activity/Vol] 20 U/L Normal 0-40 [facility] Internal Medicine Work Phone: AST enzyme act/vol 20 [iU]/L Normal 0-40 [facility] Internal Medicine Work Phone: Comment on above: PATIENT WAS FASTINGP ERFORMED BY: MONICA Juan[address] [facility] [id number] Bilirubin mass conc 0.4 mg/dL Normal 0.0-1.2 [facility] Internal Medicine Work Phone: Comment on above: PATIENT WAS FASTINGP ERFORMED BY: MONICA Tatelin[address] [facility] [id number] Calcium mass conc 10.5 mg/dL Abnormal 8.6-10.2 Compreh [facility] Internal Medicine Work Phone: Comment on above: PATIENT WAS FASTINGP ERFORMED BY: MONICA Tatelin[address] [facility] [id number] Chloride molar conc 99 mmol/L Normal 97-108 [facility] Internal Medicine Work Phone: Comment on above: PATIENT WAS FASTINGP ERFORMED BY: MONICA Tatelin6[address] [facility] [id number] CO2 molar conc 23 mmol/L Normal 20-32 Comprehens lucio Internal Medicine Work Phone: Comment on above: PATIENT WAS FASTINGP ERFORMED BY: MONICA Sheri Yopzon2706 [facility] [id number] Creatinine mass conc 0.81 mg/dL Normal 0.57-1.00 Comp rehensive Internal Medicine Work Phone: Comment on above: PATIENT WAS FASTINGP ERFORMED BY: MONICA [place] 8656970 [facility] [id number] GFR/1.73 sq M predicted among blacks MDRD vol rate/area (S/P/Bld) mL/min/{1.73_m2} Normal Comprehensi Internal Medicine Work Phone: Comment on above: Note: Persistent red uction for 3 months or more in an eGFR<60 mL/min/1.73 m2 defines CKD. Patients with eGFR values>/=60 mL/min/1.73 m2 may also have CKD if evidence of persistentproteinuria is present. Additional information may be found [email or web address]. PATIENT WAS FASTINGP ERFORMED BY: MONICA [facility] Slfpso1931 [facility] [id number] GFR/1.73 sq M.predicted MDRD (S/P/Bld) [Vol rate/Area] mL/min/{1.73_m2} Normal [facility] Work Phone: Comment on above: PATIENT WAS FASTINGP ERFORMED BY: MONICA [place] [id number] [facility] [id number] GFR/1.73 sq M.predicted MDRD vol rate/area mL/min/{1.73_m2} Normal [facility] Work Phone: Comment on above: PATIENT WAS FASTINGP ERFORMED BY: [place] 1142570 [facility] [id number] Globulin mass conc (S) 2.8 g/dL Normal 1.5-4.5 [facility] Work Phone: Comment on above: PATIENT WAS FASTINGP ERFORMED BY: MONICA [facility] Pywzdn[address] [facility] [place] [id number] Glucose mass conc 88 mg/dL Normal 65-99 Compreh ensive [facility] Medicine Work Phone: Comment on above: PATIENT WAS FASTINGP ERFORMED BY: MONICA [facility] Wnqyej9104 [address] RoadCaromont [facility]in [place] [id number] Potassium molar conc 3.7 mmol/L Normal 3.5-5.2 Comp rehensive Internal Medicine Work Phone: Comment on above: PATIENT WAS FASTINGP ERFORMED BY: MONICA [facility] Kyuisn[address] [facility] [id number] Protein mass conc 7.4 g/dL Normal 6.0-8.5 Compreh ensive [facility] Medicine Work Phone: Comment on above: PATIENT WAS FASTINGP ERFORMED BY: MONICA [facility] Yzsqzr[address] [facility] [id number] Sodium molar conc 138 mmol/L Normal 135-145 Compreh ensive [facility] Medicine Work Phone: Comment on above: PATIENT WAS FASTINGP ERFORMED BY: MONICA [facility] Mzhnbp[address] [facility] [id number] Urea nitrogen mass conc 13 mg/dL Normal 5-26 [facility] Work Phone: Comment on above: PATIENT WAS FASTINGP ERFORMED BY: MONICA [facility] Hyicif[address] [facility] [id number] Urea nitrogen/Creatinine mass ratio 16 mg/mg Normal 8-27 [facility] Work Phone: Comment on above: PATIENT WAS FASTINGP ERFORMED BY: MONICA [facility] Ntejqr[address] [facility] [place] [id number] Microscopic ExaminationOrder ed By: Restoration Ecologist on 04-16-2010 Bacteria LM.HPF #/area (Urine sed) Few Normal [facility] Work Phone: Comment on above: PATIENT WAS FASTINGP ERFORMED BY: MONICA [facility] Vtswro[address] [facility] [place] [id number] Epithelial cells LM.HPF #/area (Urine sed) 0-10 Normal 0 - 10 [facility] Work Phone: Comment on above: PATIENT WAS FASTINGP ERFORMED BY: MONICA [facility] Bcexlj6489 [address]ini RoadDublin [place] [id number] Mucus Ql (Urine sed) Present Normal Comp rehensive Internal Medicine Work Phone: Comment on above: PATIENT WAS FASTINGP ERFORMED BY: MONICA [facility] Hfgcux7295 [address] RoadDublin [place] [id number] RBC LM.HPF #/area (Urine sed) 0-3 Normal 0 - 3 [facility] Work Phone: Comment on above: PATIENT WAS FASTINGP ERFORMED BY: MONICA [facility] Klyikt9148 [address] RoadDublin [place] [id number] WBC LM.HPF #/area (Urine sed) 6-10 Abnormal 0 - 5 [facility] Work Phone: Comment on above: PATIENT WAS FASTINGP ERFORMED BY: MONICA [facility] Inmdsj3298 [address] RoadDublin [place] [id number] TSH ([id number])Ordered By: Syste m Ship Fitter on 04-16-2010 Thyrotropin Qn 6.920 {uIU/mL} Abnormal 0.450-4.50 0 [facility] Work Phone: Comment on above: PATIENT WAS FASTINGP ERFORMED BY: MONICA [facility] Qhbyib8664 [address] RoadDublin [place] [id number] URINALYSIS, W/ MICRO ([id number]) Ordered By: Restoration Ecologist on 04-16-2010 Appearance Nom (U) Clear Normal Compre hensive [facility] Work Phone: Comment on above: PATIENT WAS FASTINGP ERFORMED BY: CB [facility] Lhzjuc5223 [address] RoadDublin [place] [id number] Bilirubin Ql (U) Negative Normal Comprehe nsive [facility] Medicine Work Phone: Comment on above: PATIENT WAS FASTINGP ERFORMED BY: MONICA [facility] Vxcrpt2428 [address] RoadDublin [place] [id number] Bilirubin Ql (U) Negative Normal Comprehe nsive [facility] Medicine Work Phone: Color Nom (U) Yellow Normal Comprehensi ve Internal Medicine Work Phone: Comment on above: PATIENT WAS FASTINGP ERFORMED BY: MONICA Juan6[address] RoadDublin [place] [id number] Glucose Ql (U) Negative Normal Comprehens lucio Internal Medicine Work Phone: Comment on above: PATIENT WAS FASTINGP ERFORMED BY: MONICA Juan6[address] RoadDublin [place] [id number] Glucose Ql (U) Negative Normal Comprehens lucio Internal Medicine Work Phone: Hemoglobin Ql (U) Negative Normal Compreh ensive [facility] Medicine Work Phone: Comment on above: PATIENT WAS FASTINGP ERFORMED BY: MONICA Tatelin[address]Dublin [place] [id number] Hemoglobin Ql (U) Negative Normal Compreh ensive [facility] Medicine Work Phone: Ketones Ql (U) Negative Normal Comprehens lucio [facility] Medicine Work Phone: Comment on above: PATIENT WAS FASTINGP ERFORMED BY: MONICA Tatelin[address]Dublin [place] [id number] Ketones Ql (U) Negative Normal Comprehens lucio [facility] Work Phone: Leukocyte esterase Test strip Ql (U) 2+ Abnormal [facility] Work Phone: Comment on above: PATIENT WAS FASTINGP ERFORMED BY: MONICA Tatelin[address]Dublin [place] [id number] Microscopic observation LM Nom (Urine sed) See below: Normal [facility] Work Phone: Comment on above: PATIENT WAS FASTINGP ERFORMED BY: MONICA Tatelin[address]ublin [place] [id number] Nitrite Ql (U) Negative Normal Comprehens lucio [facility] Work Phone: Comment on above: PATIENT WAS FASTINGP ERFORMED BY: MONICA Tatelin[address]Dublin [place] [id number] Nitrite Ql (U) Negative Normal Comprehens lucio Internal Medicine Work Phone: pH (U) 6.5 [pH] Normal 5.0-7.5 [facility] Work Phone: Comment on above: PATIENT WAS FASTINGP ERFORMED BY: MONICA RoseAna Htrxdc6932 [address] RoadDublin [place] [id number] Protein Ql (U) Negative Normal Comprehens lucio Internal Medicine Work Phone: Comment on above: PATIENT WAS FASTINGP ERFORMED BY: MONICA LabSaint [facility] Neuhpf9[address] Roadblin [place] [id number] Protein Ql (U) Negative Normal Comprehens lucio Internal Medicine Work Phone: Specific gravity Relative Density (U) 1.015 1 Normal 1.005-1.03 0 [facility] Work Phone: Comment on above: PATIENT WAS FASTINGP ERFORMED BY: MONICA [facility]Saint [facility] Hnpqro[address] [facility] [id number] Urobilinogen (U) [Mass/Vol] 0.2 mg/dL Normal 0.0-1.9 [facility] Work Phone: Urobilinogen Test strip mass conc (U) 0.2 mg/dL Normal 0.0-1.9 Comprehensiv e Internal Medicine Work Phone: Comment on above: PATIENT WAS FASTINGP ERFORMED BY: MONICA LabSaint [facility] Gnuyzo[address] [facility] [place] [id number] VITAMIN B-12 (CYANOCOBALAMIN ) ([id number])Ordered By: Restoration Ecologist on 04-16-2010 Cobalamin (Vitamin B12) mass conc 500 pg/mL Normal 211-946 [facility] Work Phone: Comment on above: PATIENT WAS FASTINGP ERFORMED BY: MONICA [facility] Dkptwq4314 [address] RoadDublin [place] [id number] Vitamin D Hydroxy (85611)Ord ered By: Restoration Ecologist on 04-16-2010 Calcitriol mass conc 29.3 ng/mL Abnormal 32.0-100.0 Comp [facility] Internal Medicine Work Phone: Comment on above: Recent studies consi cuong the lower limit of 32.0 ng/mL to be athreshold for optimal health.Aries ANDERSON. J Nutr. 2004;135(2):317-22. PATIENT WAS FASTINGP ERFORMED BY: MONICA [facility] Exqpaj2283 [facility] [id number] Urinalysis, Office ([id number])Or dered By: MAKENZIE Webb on 01-16-2010 Bilirubin Ql (U) Negative Normal Comprehe nsive Internal Medicine Work Phone: Bilirubin Ql (U) Negative Normal Comprehe nsive Internal Medicine Work Phone: Glucose Test strip (U) [Mass/Vol] Negative Normal [facility] Work Phone: Glucose Test strip mass conc (U) Negative Normal [facility] Work Phone: Hemoglobin Ql (U) Hemolyzed Small Normal Co mprehensive [facility] Medicine Work Phone: Ketones Ql (U) Negative Normal Comprehens lucio [facility] Medicine Work Phone: Ketones Ql (U) Negative Normal Comprehens lucio [facility] Work Phone: Leukocyte esterase Test strip Ql (U) Moderate Normal [facility] Work Phone: Nitrite Ql (U) Negative Normal Comprehens lucio [facility] Work Phone: Nitrite Ql (U) Negative Normal Comprehens lucio [facility] Work Phone: pH (U) 6.0 [pH] Normal [facility] Work Phone: Protein Ql (U) Negative Normal Comprehens lucio [facility] Work Phone: Protein Ql (U) Negative Normal Comprehens lucio [facility] Work Phone: Specific gravity Relative Density (U) 1.010 1 Normal Comprehensi ve Internal Medicine Work Phone: Urobilinogen mass/time (24H U) 2 mg/dL Normal [facility] Work Phone: Rapid Flu (61221 x 2)Ordered By: Danae Azevedo on 08-15-2009 FLUAV Ag IA Ql (Throat) Negative Normal [facility] Work Phone: FLUAV Ag IA Ql (Throat) Negative Normal [facility] Work Phone: BILAT SCRN DIGITAL & CADOrde red By: Restoration Ecologist on 07-04-2009 BILAT SCRN DIGITAL & CAD See Note Normal [facility] Work Phone: Comment on above: Exam Number: [id number] MAMMOGRAM, BILATERAL SCREENING DIGITAL AND CAD HISTORYRoutine screening. Full field digital images were obtained in mediolateral oblique andcraniocaudal projections. CAD images were reviewed. The current study is compared to the examinations of November, and June 16, 2007. There is moderately dense fibroglandular parenchyma present. There isno skin thickening or retraction, architectural distortion, or clusterof suspicious microcalcifications. There is a small asymmetricdensity in the outer left breast, which is stable. If there is nosuspicious palpable abnormality, followup mammogram in 1 year isrecommended. IMPRESSIONThere is no radiographic evidence of malignancy identified. FINAL ASSESSMENTBIRADS Category 2 - Benign. A letter regarding these results has been sent to the patient. This interpretation was rendered by a radiologist certified under theMammography Quality Standards Act of 1992 (MQSA). The mammograms werealso examined with computer-aided detection software ([employer], [employer] Reported By: MARTITA VELÁZQUEZ M.D. Exam Number: [id number] BONE DENSITOMETRY HISTORYOsteopenia. TECHNIQUE Bone densitometry of the lumbar spine and both hips is now beingperformed. The best criteria for evaluation of osteoporosis is theT-value, which represents the comparison of the patient's bone mass phuc expected peak bone mass. For most patients, the mean T-value of C2aedjenk L4 is used to evaluate the lumbar spine. To evaluate the hip,the lower T-value of the femoral neck or total hip is used. FINDINGSIn this patient, the mean T-value of L1 through L4 is -0.4 which isnormal. Z-score is 0.3. Bone mineral density is measured at 2.8%greater than in 2003 and 16.7% greater than in 2006.Digital lateral view for evaluation of vertebral deformity only demonstrates no compression fractures.The T-value of the left femoral neck is -0.2 which is normal. The T-value of the total left hip is 0.4 which is normal. The Z-scoreof the femoral neck is 0.7. Z-score of the total hip is 1. Bonemineral density is measured at 5.1% greater than in 2003 and 4.6%greater than in 2006. The T-value of the right femoral neck is -0.3 which is normal.The T-value of the total right hip is 0.4 which is normal. Z-score ofthe femoral neck is 0.5. Z-score of the total hip is 1. IMPRESSIONBone densitometry of the lumbar spine and both hips is within normallimits. Reported By: MARTITA VELÁZQUEZ M.D. AUDRA CULTURE-OTHER ([id number])Ord ered By: Nika Ricketts on 06-25-2009 Bacteria identified Respiratory culture Nom (Unsp spec) RRF Normal [facility] Work Phone: Comment on above: Routine respiratory shakira PATIENT NOT FASTINGC linical Information: SRC:THRT ADD [id number] PERFORMED BY: [email or web address] [facility] [id number] Bacteria identified Respiratory culture Nom (Unsp spec) Final report Normal [facility] Work Phone: Comment on above: PATIENT NOT FASTINGC linical Information: SRC:THRT ADD [id number] PERFORMED BY: Hitch6370 [facility] [id number] Rapid Strep Test, Office ([id number] [id number])Ordered By: Cassandra Fast on 06-25-2009 S. pyogenes Ag EIA Ql (Throat) Negative Normal [facility] Work Phone: S. pyogenes Ag IA Ql (Unsp spec) Negative Normal [facility] Work Phone: URINE AUDRA CULTURE (EDIE COL COUNT) ([id number])Ordered By: Cassandra Fast on 04-25-2009 Bacteria identified Cx Nom (U) NG36 Normal [facility] Work Phone: Comment on above: No growth in 36 - 48 hours. PATIENT NOT FASTINGC linical Information: SRC:UR ADD [id number] PERFORMED BY: [employer] [facility] Ikajnp5361 [facility] [id number] Bacteria identified Cx Nom (U) Final report Normal [facility] Work Phone: Comment on above: PATIENT NOT FASTINGC linical Information: SRC:UR ADD [id number] PERFORMED BY: [facility] Xvslud4358 [facility] [id number] Urinalysis, Office ([id number])Or dered By: Danae Azevedo on 04-25-2009 Bilirubin Ql (U) Negative Normal Comprehe nsive [facility] Medicine Work Phone: Bilirubin Ql (U) Negative Normal Comprehe nsive [facility] Medicine Work Phone: Glucose Test strip (U) [Mass/Vol] Negative Normal [facility] Work Phone: Glucose Test strip mass conc (U) Negative Normal [facility] Work Phone: Hemoglobin Ql (U) Non Hemolyzed Trace Normal [facility] Work Phone: Ketones Ql (U) Negative Normal [facility] Work Phone: Ketones Ql (U) Negative Normal [facility] Work Phone: Leukocyte esterase Test strip Ql (U) Trace Normal [facility] Work Phone: Comment on above: aw Nitrite Ql (U) Negative Normal [facility] Work Phone: Nitrite Ql (U) Negative Normal [facility] Work Phone: pH (U) 7.0 [pH] Normal [facility] Work Phone: Protein Ql (U) Negative Normal [facility] Work Phone: Protein Ql (U) Negative Normal [facility] Work Phone: Specific gravity Relative Density (U) 1.020 1 Normal Comprehensi ve [facility] Work Phone: Urobilinogen mass/time (24H U) Normal Normal [facility] Work Phone: CBCD,SMEAR DIFFOrdered By: Jeb ystem Ship Fitter on 04-19-2009 Band form neutrophils/100 WBC (Bld) 5 % Normal 0-5 [facility] Work Phone: Erythrocyte distribution width Ratio (RBC) 13.2 % Normal 11.6-14.6 [facility] Work Phone: Hematocrit Volume Fraction (Bld) 39.5 % Normal 37-47 [facility] Work Phone: Hemoglobin mass conc (Bld) 13.8 g/dL Normal 12.0-16.0 [facility] Work Phone: Lymphocytes/100 WBC (Bld) 38 % Normal 19-41 [facility] Work Phone: MCH Entitic mass (RBC) 31.4 pg Normal 27.0-32.0 [facility] Work Phone: MCHC mass conc (RBC) 34.9 g/dL Normal 32-36 Comp rehensive [facility] Work Phone: MCV Entitic volume (RBC) 89.9 fL Normal 81-99 [facility] Work Phone: Monocytes/100 WBC (Bld) 6 % Normal 0-10 [facility] Work Phone: Platelets #/vol (Bld) SeeNote Normal [facility] Work Phone: Comment on above: Result: ADEQUATE Platelets #/vol (Bld) 348 10*3/uL Normal 150-450 [facility] Work Phone: RBC #/vol (Bld) 4.40 {M/mm3} Normal 4.2-5.4 Compre[facility] Work Phone: WBC #/vol (Bld) 5.7 10*3/uL Normal 4.4-11.0 Comprehe nsive [facility] Work Phone: CBCD,SMEAR DIFF 51 % Normal 47-70 Comprehen replaced by [facility] Work Phone: CBCD,SMEAR DIFF 100 1 Normal Comprehen replaced by [facility] Work Phone: COMP METABOLICOrdered By: Phani stem Ship Fitter on 04-19-2009 Albumin mass conc 3.9 g/dL Normal 3.4-5.0 Compreh ens[facility] Work Phone: Albumin/Globulin mass ratio 1.0 {RATIO} Normal 0.9-2.4 [facility] Work Phone: ALP enzyme act/vol 114 U/L Normal 50-136 [facility] Work Phone: ALT enzyme act/vol 30 U/L Normal 30-65 [facility] Work Phone: Anion gap molar conc 7 mmol/L Normal 5-15 [facility] Work Phone: AST enzyme act/vol 9 U/L Abnormal 15-37 Compre [facility] Work Phone: Bilirubin mass conc 0.40 mg/dL Normal 0.00-1.00 Compr ensive [facility] Work Phone: Calcium mass conc 9.6 mg/dL Normal 8.5-10.1 Compreh [facility] Work Phone: Chloride molar conc 103 mmol/L Normal 98-107 Compr ensive [facility] Work Phone: CO2 molar conc 29.0 mmol/L Normal 21.0-32.0 [facility] Work Phone: Creatinine mass conc 0.7 mg/dL Normal 0.6-1.0 [facility] Work Phone: GFR/1.73 sq M predicted among blacks MDRD vol rate/area (S/P/Bld) 110 mL/min/{1.73_m2} Normal Compreh ensive [facility] Work Phone: GFR/1.73 sq M.predicted MDRD vol rate/area 91 mL/min/{1.73_m2} Normal Comprehensiv e [facility] Work Phone: Globulin mass conc (S) 3.9 g/dL Normal 2.7-4.2 [facility] Work Phone: Glucose mass conc 92 mg/dL Normal 70-110 Compre[facility] ens[facility] Work Phone: Potassium molar conc 4.5 mmol/L Normal 3.5-5.1 Comp rehensive [facility] Work Phone: Protein mass conc 7.8 g/dL Normal 6.4-8.2 Compre[facility] Work Phone: Sodium molar conc 139 mmol/L Normal 136-145 Com[facility] Work Phone: Urea nitrogen mass conc 15 mg/dL Normal 7-18 [facility] Work Phone: Urea nitrogen/Creatinine mass ratio 21.4 {RATIO} Abnormal 10-20 [facility] Work Phone: LIPIDOrdered By: Viktor brown on 04-19-2009 Cholesterol in HDL mass conc 49 mg/dL Normal [facility] Work Phone: Comment on above: Reference Range HDL <40 mg/dL Low HDL Cholesterol HDL >or= 60 mg/dL High HDL Cholesterol Cholesterol in LDL mass conc 171 mg/dL Abnormal 0-130 [facility] Work Phone: Cholesterol in VLDL mass conc 31 mg/dL Normal 5-40 [facility] Work Phone: Cholesterol mass conc 251 mg/dL Abnormal [facility] Work Phone: Comment on above: <200 mg/dL Desirable 200-240 mg/dL Borderline >240 mg/dL High Risk Triglyceride mass conc 156 mg/dL Normal [facility] Work Phone: Comment on above: Serum Triglycerides Reference Interval Normal <150 mg/dL Borderline high 150 - 199 mg/dL High 200 - 499 mg/dL Very High > or = 500 mg/dL ROUTINE UAOrdered By: Restoration Ecologist on 04-19-2009 Clarity Nom (U) CLEAR Normal Comprehen sive [facility] Work Phone: Color Nom (U) YELLOW Normal Comprehensi ve [facility] Work Phone: Glucose mass conc SeeNote Normal Compreh ensive [facility] Work Phone: Comment on above: Result: NEGATIVE Protein mass conc SeeNote Normal Compreh ens[facility] Work Phone: Comment on above: Result: NEGATIVE ROUTINE UA SeeNote Normal [facility] Work Phone: Comment on above: Result: NEGATIVE Result: NORM C+C Result: TRACE-INTACT ROUTINE UA 0.2 EU/dl Normal 0.2 - 1.0 [facility] Work Phone: ROUTINE UA 1.015 1 Normal 1.002-1.03 0 [facility] Work Phone: ROUTINE UA 6.0 1 Normal 5.0-8.0 [facility] Work Phone: ROUTINE UA 3+ Abnormal [facility] Work Phone: TSHOrdered By: System Manage r on 04-19-2009 Thyrotropin Qn 5.84 {uIU/mL} Abnormal 0.358-3.74 Compreh ensive [facility] Work Phone: VIT D,25 [id number] By: Sy stem Ship Fitter on 04-19-2009 VIT D,25 [id number] 26.8 ng/mL Abnormal 32.0-100.0 [facility]prehens [facility] Work Phone: Comment on above: Recent studies consi cuong the lower limit of 32.0 ng/mL to avi threshold for optimal health.Aries ANDERSON. J Nutr. 2004;135(2):317-22.Performed At: [facility] [place], [place] [id number] Rapid Flu (48783 x 2)Ordered By: Darling Nur on 12-30-2007 FLUAV Ag IA Ql (Throat) Positive Normal [facility] Work Phone: Comment on above: pos FLUAV Ag IA Ql (Throat) Positive Normal [facility] Work Phone: COMP METABOLICOrdered By: Phani stem Ship Fitter on 10-01-2007 Albumin mass conc 4.0 g/dL Normal 3.4-5.0 Compreh ensive [facility] Work Phone: Albumin/Globulin mass ratio 1.1 {RATIO} Normal 0.9-2.4 [facility] Work Phone: ALP enzyme act/vol 91 U/L Normal 50-136 Compre hensive [facility] Work Phone: ALT enzyme act/vol 38 [iU]/L Normal 30-65 [facility] Work Phone: Anion gap molar conc 6 mmol/L Normal 5-15 [facility]: AST enzyme act/vol 17 U/L Normal 15-37 [facility] Work Phone: Bilirubin mass conc 0.34 mg/dL Normal 0.00-1.00 Compr ensive [facility] Work Phone: Calcium mass conc 9.7 mg/dL Normal 8.5-10.1 [facility] Work Phone: Chloride molar conc 103 mmol/L Normal 98-107 Compr [facility] Internal Medicine Work Phone: CO2 molar conc 30.3 mmol/L Normal 21.0-32.0 Comprehen replaced by [facility] Work Phone: Comment on above: Please Note Refer ence Interval Change Creatinine mass conc 1.0 mg/dL Normal 0.6-1.0 [facility] Work Phone: Globulin mass conc (S) 3.5 g/dL Normal 2.7-4.2 [facility] Work Phone: Comment on above: Please Note Refer ence Interval Change Glucose mass conc 86 mg/dL Normal 70-110 [facility] Work Phone: Potassium molar conc 4.2 mmol/L Normal 3.5-5.1 [facility] Work Phone: Protein mass conc 7.5 g/dL Normal 6.4-8.2 [facility] Work Phone: Sodium molar conc 139 mmol/L Normal 136-145 Compreh [facility] Work Phone: Urea nitrogen mass conc 12 mg/dL Normal 7-18 [facility] Work Phone: Urea nitrogen/Creatinine mass ratio 12.0 {RATIO} Normal 10-20 [facility] Work Phone: D BILIOrdered By: System Emeka luann on 10-01-2007 Bilirubin.direct mass conc 0.06 mg/dL Normal 0.00-0.30 [facility] Work Phone: LIPIDOrdered By: Viktor China brown on 10-01-2007 Cholesterol in HDL mass conc 50 mg/dL Normal [facility] Work Phone: Comment on above: Reference Range HDL <40 mg/dL Low HDL Cholesterol HDL >or= 60 mg/dL High HDL Cholesterol Cholesterol in LDL mass conc 147 mg/dL Abnormal 0-130 [facility] Work Phone: Cholesterol in VLDL mass conc 25 mg/dL Normal 5-40 [facility] Work Phone: Cholesterol mass conc 222 mg/dL Abnormal [facility] Work Phone: Comment on above: <200 mg/dL Desirable 200-240 mg/dL Borderline >240 mg/dL High Risk Triglyceride mass conc 127 mg/dL Normal [facility] Work Phone: Comment on above: Serum Triglycerides Reference Interval Normal <150 mg/dL Borderline high 150 - 199 mg/dL High 200 - 499 mg/dL Very High > or = 500 mg/dL THYROIDOrdered By: System Jillian lara on 07-19-2007 THYROID See Note Normal [facility] Work Phone: Comment on above: Exam Number: [id number] ULTRASOUND THYROID GLAND STATEMENTNontoxic multinodular goiter. COMPARISON STUDYDecemb2003. The right and left thyroid lobes are measured at 4.9 X 1.7 X 2.2 cmand 4.2 X 1.2 X 1.4 cm respectively. The thyroid parenchyma is veryheterogeneous. The thyroid margins are lobulated. There is adensely shadowing echogenic focus in the right thyroid lobe measuring6 X 8 mm unchanged from the prior study likely secondary to an area ofcalcification. The thyroid isthmus measures 3.5 mm. Compared withthe prior study there has been no significant change. IMPRESSIONStable thyroid ultrasound demonstrating no significant change comparedto October 10, 2004. Reported By: FERN ISLAS M.D. BILAT SCRN DIGITAL & CADOrde red By: Restoration Ecologist on 06-16-2007 BILAT SCRN DIGITAL & CAD See Note Normal [facility] Work Phone: Comment on above: Exam Number: [id number] MAMMOGRAM, BILATERAL SCREENING DIGITAL AND CAD HISTORYRoutine screening. Full field digital images were obtained in mediolateral oblique andcraniocaudal projections. CAD images were reviewed. The current study is compared to the examinations of September,,and November,. There is moderately dense fibroglandular parenchyma present. There isno skin thickening or retraction, architectural distortion,or dominant mass. There are a few scattered calcifications. There rene small area of asymmetric parenchymal density in the outer leftbreast. These findings were present previously. If there is nosuspicious palpable abnormality, followup mammogram in 1 year isrecommended. IMPRESSIONThere is no radiographic evidence of malignancy identified. FINAL ASSESSMENTBenign findings. BIRADS Category 2. A letter regarding these results has been sent to the patient. This interpretation was rendered by a radiologist certified under theMammography Quality Standards Act of 1992 (MQSA). The mammograms werealso examined with computer-aided detection software (ImageLiftDNAckValidus-IVC, [employer].). Reported By: MARTITA VELÁZQUEZ M.D. CBCOrdered By: System Manage r on 06-11-2007 Erythrocyte distribution width Ratio (RBC) 13.0 % Normal 11.6-14.6 [facility] Work Phone: Hematocrit Volume Fraction (Bld) 40.7 % Normal 37-47 [facility] Work Phone: Hemoglobin mass conc (Bld) 14.1 g/dL Normal 12.0-16.0 [facility] Work Phone: MCH Entitic mass (RBC) 31.7 pg Normal 27.0-32.0 [facility] Work Phone: MCHC mass conc (RBC) 34.7 g/dL Normal 32-36 Comp rehensive [facility] Work Phone: MCV Entitic volume (RBC) 91.2 fL Normal 81-99 [facility] Work Phone: Platelets #/vol (Bld) 363 10*3/uL Normal 150-450 [facility] Work Phone: RBC #/vol (Bld) 4.46 {M/mm3} Normal 4.2-5.4 [facility] Work Phone: WBC #/vol (Bld) 4.4 10*3/uL Normal 4.4-11.0 Comprehe [facility] Work Phone: COMP METABOLICOrdered By: Phani stem Ship Fitter on 06-11-2007 Albumin mass conc 4.0 g/dL Normal 3.4-5.0 Compreh [facility] Internal [facility] Work Phone: Albumin/Globulin mass ratio 1.1 {RATIO} Normal 0.9-2.4 [facility] Work Phone: ALP enzyme act/vol 84 U/L Normal 50-136 [facility] Work Phone: ALT enzyme act/vol 33 [iU]/L Normal 30-65 [facility] Work Phone: Anion gap molar conc 9 mmol/L Normal 5-15 [facility] Work Phone: AST enzyme act/vol 11 U/L Abnormal 15-37 [facility] Work Phone: Bilirubin mass conc 0.29 mg/dL Normal 0.00-1.00 Compr [facility] Internal [facility] Work Phone: Calcium mass conc 9.4 mg/dL Normal 8.5-10.1 Compreh [facility] Medicine Work Phone: Chloride molar conc 106 mmol/L Normal 98-107 [facility] Internal Medicine Work Phone: CO2 molar conc 27.4 mmol/L Normal 21.0-32.0 Comprehen replaced by [facility] Work Phone: Comment on above: Please Note Refer ence Interval Change Creatinine mass conc 0.8 mg/dL Normal 0.6-1.0 [facility] Work Phone: Globulin mass conc (S) 3.5 g/dL Normal 2.7-4.2 [facility] Work Phone: Comment on above: Please Note Refer ence Interval Change Glucose mass conc 88 mg/dL Normal 70-110 Compreh ensive [facility] Work Phone: Potassium molar conc 4.3 mmol/L Normal 3.5-5.1 Comp rehensive [facility] Work Phone: Protein mass conc 7.5 g/dL Normal 6.4-8.2 Compreh [facility] Work Phone: Sodium molar conc 142 mmol/L Normal 136-145 Compre[facility] Work Phone: Urea nitrogen mass conc 11 mg/dL Normal 7-18 [facility] Work Phone: Urea nitrogen/Creatinine mass ratio 13.8 {RATIO} Normal 10-20 [facility] Work Phone: LIPIDOrdered By: Viktor brown on 06-11-2007 Cholesterol in HDL mass conc 52 mg/dL Normal [facility] Work Phone: Comment on above: Reference Range HDL <40 mg/dL Low HDL Cholesterol HDL >or= 60 mg/dL High HDL Cholesterol Cholesterol in LDL mass conc 153 mg/dL Abnormal 0-130 [facility] Work Phone: Cholesterol in VLDL mass conc 31 mg/dL Normal 5-40 [facility] Work Phone: Cholesterol mass conc 236 mg/dL Abnormal [facility] Work Phone: Comment on above: <200 mg/dL Desirable 200-240 mg/dL Borderline >240 mg/dL High Risk Triglyceride mass conc 154 mg/dL Normal [facility] Work Phone: Comment on above: Serum Triglycerides Reference Interval Normal <150 mg/dL Borderline high 150 - 199 mg/dL High 200 - 499 mg/dL Very High > or = 500 mg/dL LIPIDOrdered By: System China stephanie on 12-09-2006 Cholesterol in HDL mass conc 59 mg/dL Normal [facility] Work Phone: Comment on above: Reference Range HDL <40 mg/dL Low HDL Cholesterol HDL >or= 60 mg/dL High HDL Cholesterol Cholesterol in LDL mass conc 186 mg/dL Abnormal 0-130 [facility] Work Phone: Cholesterol in VLDL mass conc 21 mg/dL Normal 5-40 [facility] Work Phone: Cholesterol mass conc 266 mg/dL Abnormal [facility] Work Phone: Comment on above: <200 mg/dL Desirable 200-240 mg/dL Borderline >240 mg/dL High Risk Triglyceride mass conc 107 mg/dL Normal [facility] Work Phone: Comment on above: Serum Triglycerides Reference Interval Normal <150 mg/dL Borderline high 150 - 199 mg/dL High 200 - 499 mg/dL Very High > or = 500 mg/dL LIVEROrdered By: Viktor brown on 12-09-2006 Albumin mass conc 4.2 g/dL Normal 3.4-5.0 Compreh [facility] Internal Medicine Work Phone: ALP enzyme act/vol 77 U/L Normal 50-136 [facility] Work Phone: ALT enzyme act/vol 36 [iU]/L Normal 30-65 [facility] Internal [facility] Work Phone: AST enzyme act/vol 21 U/L Normal 15-37 [facility] Work Phone: Bilirubin mass conc 0.52 mg/dL Normal 0.00-1.00 [facility] Internal Medicine Work Phone: Bilirubin.direct mass conc 0.08 mg/dL Normal 0.00-0.30 [facility] Work Phone: Protein mass conc 7.8 g/dL Normal 6.4-8.2 Compreh [facility] Internal Medicine Work Phone: VITD 1,25 [id number] By: Jeb arteagatem Ship Fitter on 12-09-2006 Calcidiol mass conc 24.2 pg/mL Normal 15.9-55.6 [facility] Internal Medicine Work Phone: Comment on above: Performed At: [address] [id number] CULTURE, THROATOrdered By: Jeb arteagatem Ship Fitter on 09-21-2006 CULTURE, THROAT See Note Normal Comprehen replaced by [facility] Internal [facility] Work Phone: Comment on above: Normal throat shakira isolated. No beta-hemolyticstreptococcus isolated. Vital Signs Date Time Vital Sign Value Performing Clinician Facility 02-09-2024 09:07-0400 Diastolic blood pressure 74 mm[Hg] Maricruz Armstrong DO Work Phone: [facility] 02-09-2024 09:07-0400 Heart rate 82 /min Maricruz Armstrong DO Work Phone: [facility] 02-09-2024 09:07-0400 SaO2% (BldA) [Mass fraction] 95 % Maricruz Armstrong DO Work Phone: [facility] 02-09-2024 09:07-0400 Systolic blood pressure 125 mm[Hg] Maricruz Armstrong DO Work Phone: [facility] 08-21-2023 10:34-0500 Diastolic Blood Pressure Non-Invasive [address] DAMIAN HARTMANN MD [facility] 08-21-2023 10:34-0500 Heart rate 79 /min DR DAMIAN HARTMANN MD [facility] 08-21-2023 10:34-0500 Respiratory rate 16 /min DR DAMIAN HARTMANN MD [facility] 08-21-2023 10:34-0500 Systolic Blood Pressure Non-Invasive [address] DAMIAN HARTMANN MD [facility] 08-21-2023 10:19-0500 Diastolic Blood Pressure Non-Invasive [address] DAMIAN HARTMANN MD [facility] 08-21-2023 10:19-0500 Heart rate 88 /min DR DAMIAN HARTMANN MD [facility] 08-21-2023 10:19-0500 Respiratory rate 18 /min DR DAMIAN HARTMANN MD [facility] 08-21-2023 10:19-0500 Systolic Blood Pressure Non-Invasive [address] DAMIAN HARTMANN MD [facility] 08-21-2023 10:04-0500 Body temperature 96.98 [degF] DR DAMIAN HARTMANN MD [facility] 08-21-2023 10:04-0500 Diastolic Blood Pressure Non-Invasive [address] DAMIAN HARTMANN MD [facility] 08-21-2023 10:04-0500 Heart rate 80 /min DR DAMIAN HARTMANN MD [facility] 08-21-2023 10:04-0500 Respiratory rate 18 /min DR DAMIAN HARTMANN MD [facility] 08-21-2023 10:04-0500 Systolic Blood Pressure Non-Invasive [address] DAMIAN HARTMANN MD [facility] 08-21-2023 10:00-0500 Heart rate 85 /min DR DAMIAN HARTMANN MD [facility] 08-21-2023 09:55-0500 Heart rate 87 /min DR DAMIAN HARTMANN MD [facility] 08-21-2023 09:55-0500 Respiratory Rate - Anes 20 br/min DR DAMIAN HARTMANN MD [facility] 08-21-2023 09:50-0500 Heart rate 83 /min DR DAMIAN HARTMANN MD [facility] 08-21-2023 09:50-0500 Respiratory Rate - Anes 24 br/min DR DAMIAN HARTMANN MD [facility] 08-21-2023 08:21-0500 Body height 158.[address] DAMIAN HARTMANN MD [facility] 08-21-2023 08:21-0500 Body temperature 97.52 [degF] DR DAMIAN HARTMANN MD [facility] 08-21-2023 08:21-0500 Body weight 90.[address] DAMIAN HARTMANN MD [facility] 08-21-2023 08:21-0500 Body weight 36.05 kg/m2 DR DAMIAN HARTMANN MD [facility] 02-13-2023 11:41-0400 Body height 158.12 cm Patsy Slarb MEDICAL CODING AUDITOR [facility]; [facility] Work Phone: 02-13-2023 11:41-0400 Body mass index (BMI) [Ratio] 36.92 kg/m2 Patsy Slarb MEDICAL CODING AUDITOR [facility]; [facility] Work Phone: 02-13-2023 11:41-0400 Body surface area Derived from formula 1.93 m2 Patsy Slarb MEDICAL CODING AUDITOR [facility]; [facility] Work Phone: 02-13-2023 11:41-0400 Body temperature 97.2 [degF] Patsy Slarb MEDICAL CODING AUDITOR [facility]; [facility] Work Phone: 02-13-2023 11:41-0400 Body weight 92.31 kg Patsy Slarb MEDICAL CODING AUDITOR [facility]; [facility] Work Phone: 02-13-2023 11:41-0400 Diastolic blood pressure 82 mm[Hg] Patsy Slarb MEDICAL CODING AUDITOR [facility]; [facility] Work Phone: 02-13-2023 11:41-0400 Heart rate 68 /min Patsy Slarb MEDICAL CODING AUDITOR [facility]; [facility] Work Phone: 02-13-2023 11:41-0400 Respiratory rate 16 /min Patsy Slarb MEDICAL CODING AUDITOR [facility]; [facility] Work Phone: 02-13-2023 11:41-0400 SaO2% (BldA) [Mass fraction] 98 % Patsy Kwok [facility]; [facility] Work Phone: 02-13-2023 11:41-0400 Systolic blood pressure 138 mm[Hg] aPtsy Kwok [facility]; [facility] Work Phone: 08-29-2022 11:02-0500 Body height 158.12 cm [facility]; [facility] Work Phone: 08-29-2022 11:02-0500 Body mass index (BMI) [Ratio] 36.85 kg/m2 [facility]; [facility] Work Phone: 08-29-2022 11:02-0500 Body surface area Derived from formula 1.93 m2 [facility]; [facility] Work Phone: 08-29-2022 11:02-0500 Body temperature 96.6 [degF] [facility]; [facility] Work Phone: 08-29-2022 11:02-0500 Body weight 92.14 kg [facility]; [facility] Work Phone: 08-29-2022 11:02-0500 Diastolic blood pressure 68 mm[Hg] [facility]; [facility] Work Phone: 08-29-2022 11:02-0500 Heart rate 73 /min [facility]; [facility] Work Phone: 08-29-2022 11:02-0500 Respiratory rate 18 /min [facility]; [facility] Work Phone: 08-29-2022 11:02-0500 SaO2% (BldA) [Mass fraction] 98 % [facility]; [facility] Work Phone: 08-29-2022 11:02-0500 Systolic blood pressure 116 mm[Hg] Efraingeesavanna EspinoYellowstone [facility] [facility]; [facility] Work Phone: 04-28-2022 10:58-0400 [facility] height [facility] Work Phone: 04-28-2022 10:58-0400 Body mass index (BMI) [Ratio] 35.47 kg/m2 [facility]; [facility] Work Phone: 04-28-2022 10:58-0400 Body surface area Derived from formula 1.9 m2 [facility] Work Phone: 04-28-2022 10:58-0400 Body temperature 100.1 [degF] [facility] Work Phone: 04-28-2022 10:58-0400 Body weight 88.68 kg Jo[facility]; [facility] Work Phone: 04-28-2022 10:58-0400 Diastolic blood pressure 70 mm[Hg] [facility] Work Phone: 04-28-2022 10:58-0400 Heart rate 96 /min [facility]; [facility] Work Phone: 04-28-2022 10:58-0400 Respiratory rate 16 /min [facility]; [facility] Work Phone: 04-28-2022 10:58-0400 SaO2% (BldA) [Mass fraction] 97 % [facility]; [facility] Work Phone: 04-28-2022 10:58-0400 Systolic blood pressure 128 mm[Hg] [facility]; [facility] Work Phone: 01-09-2022 10:57-0400 Body height 160 cm Maikel Avila MD Work Phone: [facility] 01-09-2022 10:57-0400 Body weight 89.36 kg Maikel Avila MD Work Phone: [facility] 01-09-2022 10:57-0400 Diastolic blood pressure 70 mm[Hg] Maikel Avila MD Work Phone: [facility] 01-09-2022 10:57-0400 Heart rate 76 /min Maikel Avila MD Work Phone: [facility] 01-09-2022 10:57-0400 Respiratory rate 18 /min Maikel Avila MD Work Phone: [facility] 01-09-2022 10:57-0400 Systolic blood pressure 130 mm[Hg] Maikel Avila MD Work Phone: [facility] 12-02-2021 15:00-0500 Body height 158.12 cm Patsy Kwok LPN [facility]; [facility] Work Phone: 12-02-2021 15:00-0500 Body mass index (BMI) [Ratio] 35.47 kg/m2 Patsy Melirb IVETTE [facility]; [facility] Work Phone: 12-02-2021 15:00-0500 Body surface area Derived from formula 1.9 m2 Patsy Melirb IVETTE [facility]; [facility] Work Phone: 12-02-2021 15:00-0500 Body temperature 97.7 [degF] Patsy Slarb MEDICAL CODING AUDITOR [facility]; [facility] Work Phone: 12-02-2021 15:00-0500 Body weight 88.68 kg Patsy Slarb IVETTE [facility]; [facility] Work Phone: 12-02-2021 15:00-0500 Diastolic blood pressure 80 mm[Hg] Patsy Slarb IVETTE [facility]; [facility] Work Phone: 12-02-2021 15:00-0500 Heart rate 72 /min Patsy Kwok LPN [facility]; [facility] Work Phone: 12-02-2021 15:00-0500 Respiratory rate 16 /min Patsy Kwok LPN [facility]; [facility] Work Phone: 12-02-2021 15:00-0500 SaO2% (BldA) [Mass fraction] 98 % Patsy Kwok LPN [facility]; [facility] Work Phone: 12-02-2021 15:00-0500 Systolic blood pressure 126 mm[Hg] Patsy Kwok LPN [facility]; [facility] Work Phone: 10-08-2021 12:02-0500 Body height 158.12 cm Erica Live LPN [facility]; [facility] Work Phone: 10-08-2021 12:02-0500 Body mass index (BMI) [Ratio] 35.82 kg/m2 Erica Live LPN [facility]; [facility] Work Phone: 10-08-2021 12:02-0500 Body surface area Derived from formula 1.91 m2 Erica Live LPN [facility]; [facility] Work Phone: 10-08-2021 12:02-0500 Body temperature 97 [degF] Erica Live LPN [facility]; [facility] Work Phone: 10-08-2021 12:02-0500 Body weight 89.54 kg Erica Live LPN [facility]; [facility] Work Phone: 08-16-2021 12:54-0400 Body height 158.12 cm Srikanth Bennett LPN [facility]; [facility] Work Phone: 08-16-2021 12:54-0400 Body mass index (BMI) [Ratio] 35.82 kg/m2 Srikanth Bennett LPN [facility]; [facility] Work Phone: 08-16-2021 12:54-0400 Body surface area Derived from formula 1.91 m2 Srikanth Bennett LPN [facility]; [facility] Work Phone: 08-16-2021 12:54-0400 Body temperature 98.6 [degF] Srikanth Bennett LPN [facility]; [facility] Work Phone: 08-16-2021 12:54-0400 Body weight 89.54 kg Srikanth Bennett LPN [facility]; [facility] Work Phone: 08-16-2021 12:54-0400 Diastolic blood pressure 82 mm[Hg] Srikanth Bennett LPN [facility]; [facility] Work Phone: 08-16-2021 12:54-0400 Heart rate 80 /min Srikanth Bennett LPN [facility]; [facility] Work Phone: 08-16-2021 12:54-0400 Respiratory rate 16 /min Srikanth Bennett LPN [facility]; [facility] Work Phone: 08-16-2021 12:54-0400 SaO2% (BldA) [Mass fraction] 98 % Srikanth Bennett LPN [facility]; [facility] Work Phone: 08-16-2021 12:54-0400 Systolic blood pressure 138 mm[Hg] Srikanth Bennett LPN [facility]; [facility] Work Phone: 08-13-2021 11:03-0400 Body temperature 97.9 [degF] Kailey Tong RN [facility]; [facility] Work Phone: 08-13-2021 11:03-0400 Diastolic blood pressure 62 mm[Hg] Kailey Tong RN [facility]; [facility] Work Phone: 08-13-2021 11:03-0400 Heart rate 76 /min Kailey Tong RN [facility]; [facility] Work Phone: 08-13-2021 11:03-0400 Respiratory rate 16 /min Kailey Tong RN [facility]; [facility] Work Phone: 08-13-2021 11:03-0400 SaO2% (BldA) [Mass fraction] 98 % Kailey Tong RN [facility]; [facility] Work Phone: 08-13-2021 11:03-0400 Systolic blood pressure 128 mm[Hg] Kailey Tong RN [facility]; [facility] Work Phone: 04-29-2021 11:32-0400 Body height 158.12 cm Patsy Kwok LPN [facility]; [facility] Work Phone: 04-29-2021 11:32-0400 Body mass index (BMI) [Ratio] 37.81 kg/m2 Patsy Melirb MEDICAL CODING AUDITOR [facility]; [facility] Work Phone: 04-29-2021 11:32-0400 Body surface area Derived from formula 1.95 m2 Patsy Melirb MEDICAL CODING AUDITOR [facility]; [facility] Work Phone: 04-29-2021 11:32-0400 Body temperature 97.3 [degF] Patsy Melirb MEDICAL CODING AUDITOR [facility]; [facility] Work Phone: 04-29-2021 11:32-0400 Body weight 94.52 kg Patsy Melirb MEDICAL CODING AUDITOR [facility]; [facility] Work Phone: 04-29-2021 11:32-0400 Diastolic blood pressure 76 mm[Hg] Patsy Slarb MEDICAL CODING AUDITOR [facility]; [facility] Work Phone: 04-29-2021 11:32-0400 Heart rate 81 /min Patsy Melirb MEDICAL CODING AUDITOR [facility]; [facility] Work Phone: 04-29-2021 11:32-0400 Respiratory rate 16 /min Patsy Slarb MEDICAL CODING AUDITOR [facility]; [facility] Work Phone: 04-29-2021 11:32-0400 SaO2% (BldA) [Mass fraction] 97 % Patsy Melirb MEDICAL CODING AUDITOR [facility]; [facility] Work Phone: 04-29-2021 11:32-0400 Systolic blood pressure 118 mm[Hg] Patsy Rissa STEELE [facility]; [facility] Work Phone: 10-30-2020 11:37-0500 BMI (Body Mass Index) 37.56 kg/m2 Srikanth Bennett LPN [facility]; [facility] Work Phone: 10-30-2020 11:37-0500 Body Temperature 97.2 [degF] Srikanth Bennett LPN [facility]; [facility] Work Phone: Comment on above: Method: Infrared 10-30-2020 11:37-0500 Body weight 93.9 kg Srikanth Bennett LPN [facility]; [facility] Work Phone: 10-30-2020 11:37-0500 BP Diastolic 80 mm[Hg] Srikanth Bennett LPN [facility]; [facility] Work Phone: Comment on above: Patient Position: Sitting; Cuff Location : Left Arm; Cuff Size: Standard 10-30-2020 11:37-0500 BP Systolic 128 mm[Hg] Srikanth Bennett LPN [facility]; [facility] Work Phone: Comment on above: Patient Position: Sitting; Cuff Location : Left Arm; Cuff Size: Standard 10-30-2020 11:37-0500 BSA (Body Surface Area) 1.95 m2 Srikanth Bennett LPN [facility]; [facility] Work Phone: 10-30-2020 11:37-0500 Height 158.12 cm Srikanth Bennett LPN [facility]; [facility] Work Phone: 10-30-2020 11:37-0500 Pulse (Heart Rate) 91 /min Srikanth Bennett LPN [facility]; [facility] Work Phone: Comment on above: Pattern: Regular 10-30-2020 11:37-0500 Pulse Oximetry 97 % Sushma Mueller [facility]; [facility] Work Phone: Comment on above: Room air 10-30-2020 11:37-0500 Respiratory Rate 18 /min Srikanth Bennett LPN [facility]; [facility] Work Phone: Comment on above: Pattern: Unlabored 10-30-2020 11:37-0500 SaO2% (BldA) [Mass fraction] 97 % Srikanth Bennett LPN [facility]; [facility] Work Phone: 09-14-2020 08:09-0500 BMI (Body Mass Index) 37.2 kg/m2 Srikanth Bennett LPN [facility] Work Phone: 09-14-2020 08:09-0500 Body Temperature 98 [degF] Srikanth Bennett LPN [facility] Work Phone: Comment on above: Method: Oral 09-14-2020 08:09-0500 Body weight 93 kg Srikanth Bennett LPN [facility] Work Phone: 09-14-2020 08:09-0500 BSA (Body Surface Area) 1.94 m2 Srikanth Bennett LPN [facility] Work Phone: 09-14-2020 08:09-0500 Height 158.12 cm Srikanth Bennett LPN [facility] Work Phone: 04-25-2020 13:43-0400 BMI (Body Mass Index) 37.2 kg/m2 Srikanth Bennett LPN [facility] Work Phone: 04-25-2020 13:43-0400 Body Temperature 97.1 [degF] Srikanth Bennett LPN [facility] Work Phone: Comment on above: Method: Infrared 04-25-2020 13:43-0400 Body weight 93 kg Srikanth Bennett LPN [facility] Work Phone: 04-25-2020 13:43-0400 BP Diastolic 72 mm[Hg] Srikanth Bennett LPN [facility] Work Phone: Comment on above: Patient Position: Sitting; Cuff Location : Left Arm; Cuff Size: Standard 04-25-2020 13:43-0400 BP Systolic 130 mm[Hg] Srikanth Bennett LPN [facility] Work Phone: Comment on above: Patient Position: Sitting; Cuff Location : Left Arm; Cuff Size: Standard 04-25-2020 13:43-0400 BSA (Body Surface Area) 1.94 m2 Srikanth Bennett LPN [facility] Work Phone: 04-25-2020 13:43-0400 Height 158.12 cm Srikanth Bennett LPN [facility] Work Phone: 04-25-2020 13:43-0400 Pulse (Heart Rate) 92 /min Srikanth Bennett LPN [facility] Work Phone: Comment on above: Pattern: Regular 04-25-2020 13:43-0400 Pulse Oximetry 97 % Sushma Mueller [facility] Work Phone: Comment on above: Room air 04-25-2020 13:43-0400 Respiratory Rate 16 /min Srikanth Bennett LPN [facility] Work Phone: Comment on above: Pattern: Unlabored 04-25-2020 13:43-0400 SaO2% (BldA) [Mass fraction] 97 % Srikanth Bennett LPN [facility] Work Phone: 01-16-2020 10:42-0400 BMI (Body Mass Index) 37.38 kg/m2 Srikanth Bennett LPN [facility] Work Phone: 01-16-2020 10:42-0400 Body Temperature 98.1 [degF] Srikanth Bennett LPN [facility] Work Phone: Comment on above: Method: Temporal 01-16-2020 10:42-0400 Body weight 93.46 kg Srikanth Bennett LPN [facility] Work Phone: 01-16-2020 10:42-0400 BP Diastolic 71 mm[Hg] Srikanth Bennett LPN [facility] Work Phone: Comment on above: Patient Position: Sitting; Cuff Location : Left Arm; Cuff Size: Standard 01-16-2020 10:42-0400 BP Systolic 130 mm[Hg] Srikanth Bennett LPN [facility] Work Phone: Comment on above: Patient Position: Sitting; Cuff Location : Left Arm; Cuff Size: Standard 01-16-2020 10:42-0400 BSA (Body Surface Area) 1.94 m2 Srikanth Bennett LPN [facility] Work Phone: 01-16-2020 10:42-0400 Height 158.12 cm Srikanth Bennett LPN [facility] Work Phone: 01-16-2020 10:42-0400 Pulse (Heart Rate) 81 /min Srikanth Bennett LPN [facility] Work Phone: Comment on above: Pattern: Regular 01-16-2020 10:42-0400 Pulse Oximetry 97 % Sushma Mueller [facility] Work Phone: Comment on above: Room air 01-16-2020 10:42-0400 Respiratory Rate 16 /min Srikanth Bennett LPN [facility] Work Phone: Comment on above: Pattern: Unlabored 01-16-2020 10:42-0400 SaO2% (BldA) [Mass fraction] 97 % Srikanth Bennett LPN [facility] Work Phone: 10-14-2019 07:54-0500 BMI (Body Mass Index) 36.66 kg/m2 Srikanth Bennett LPN [facility] Work Phone: 10-14-2019 07:54-0500 Body Temperature 97.5 [degF] Srikanth Bennett LPN [facility] Work Phone: Comment on above: Method: Temporal 10-14-2019 07:54-0500 Body weight 91.64 kg Srikanth Bennett LPN [facility] Work Phone: 10-14-2019 07:54-0500 BP Diastolic 82 mm[Hg] Srikanth Bennett LPN [facility] Work Phone: Comment on above: Patient Position: Sitting; Cuff Location : Left Arm; Cuff Size: Standard 10-14-2019 07:54-0500 BP Systolic 130 mm[Hg] Srikanth Bennett LPN [facility] Work Phone: Comment on above: Patient Position: Sitting; Cuff Location : Left Arm; Cuff Size: Standard 10-14-2019 07:54-0500 BSA (Body Surface Area) 1.93 m2 Srikanth Bennett LPN [facility] Work Phone: 10-14-2019 07:54-0500 Height 158.12 cm Srikanth Bennett LPN [facility] Work Phone: 10-14-2019 07:54-0500 Pulse (Heart Rate) 90 /min Srikanth Bennett IVETTE [facility] Work Phone: Comment on above: Pattern: Regular 10-14-2019 07:54-0500 Pulse Oximetry 96 % Sushma Mueller [facility] Work Phone: Comment on above: Room air 10-14-2019 07:54-0500 Respiratory Rate 16 /min Srikanth Bennett IVETTE [facility] Work Phone: Comment on above: Pattern: Unlabored 10-14-2019 07:54-0500 SaO2% (BldA) [Mass fraction] 96 % Srikanth Donald STEELE [facility] Work Phone: 08-15-2019 14:02-0500 BMI (Body Mass Index) 36.48 kg/m2 Erica Live MEDICAL CODING AUDITOR [facility] Work Phone: 08-15-2019 14:02-0500 Body Temperature 97.6 [degF] Erica Live [facility] Work Phone: Comment on above: Method: Temporal 08-15-2019 14:02-0500 Body weight 91.19 kg Erica Live [facility] Work Phone: 08-15-2019 14:02-0500 BP Diastolic 75 mm[Hg] Erica Live [facility] Work Phone: Comment on above: Patient Position: Sitting; Cuff Location : Left Arm; Cuff Size: Standard 08-15-2019 14:02-0500 BP Systolic 118 mm[Hg] Erica Live [facility] Work Phone: Comment on above: Patient Position: Sitting; Cuff Location : Left Arm; Cuff Size: Standard 08-15-2019 14:02-0500 BSA (Body Surface Area) 1.92 m2 Erica Live MEDICAL CODING AUDITOR [facility] Work Phone: 08-15-2019 14:02-0500 Height 158.12 cm Erica Live [facility] Work Phone: 08-15-2019 14:02-0500 Pulse (Heart Rate) 74 /min Erica Live LPN [facility] Work Phone: Comment on above: Pattern: Regular 08-15-2019 14:02-0500 Pulse Oximetry 96 % Sushma Mueller [facility] Work Phone: Comment on above: Room air 08-15-2019 14:02-0500 Respiratory Rate 16 /min Erica Live MEDICAL CODING AUDITOR [facility] Work Phone: Comment on above: Pattern: Unlabored 08-15-2019 14:02-0500 SaO2% (BldA) [Mass fraction] 96 % Erica Live MEDICAL CODING AUDITOR [facility] Work Phone: 07-13-2019 12:48-0400 BMI (Body Mass Index) 36.11 kg/m2 Patsy Garrisonrb MEDICAL CODING AUDITOR [facility] Work Phone: 07-13-2019 12:48-0400 Body Temperature 96 [degF] Patsy Slarb MEDICAL CODING AUDITOR [facility] Work Phone: 07-13-2019 12:48-0400 Body weight 90.27 kg Patsy Slarb MEDICAL CODING AUDITOR [facility] Work Phone: 07-13-2019 12:48-0400 BP Diastolic 86 mm[Hg] Patsy Slarb MEDICAL CODING AUDITOR [facility] Work Phone: Comment on above: Patient Position: Sitting; Cuff Location : Left Arm; Cuff Size: Standard 07-13-2019 12:48-0400 BP Systolic 140 mm[Hg] Patsy Slarb MEDICAL CODING AUDITOR [facility] Work Phone: Comment on above: Patient Position: Sitting; Cuff Location : Left Arm; Cuff Size: Standard 07-13-2019 12:48-0400 BSA (Body Surface Area) 1.91 m2 Patsy Slarb MEDICAL CODING AUDITOR [facility] Work Phone: 07-13-2019 12:48-0400 Height 158.12 cm Patsy Slarb MEDICAL CODING AUDITOR [facility] Work Phone: 07-13-2019 12:48-0400 Pulse (Heart Rate) 81 /min Patsy Rissa STEELE [facility] Work Phone: Comment on above: Pattern: Regular 07-13-2019 12:48-0400 Pulse Oximetry 96 % Sushma Mueller [facility] Work Phone: Comment on above: Room air 07-13-2019 12:48-0400 Respiratory Rate 16 /min Patsy Rissa STEELE [facility] Work Phone: Comment on above: Pattern: Unlabored 07-13-2019 12:48-0400 SaO2% (BldA) [Mass fraction] 96 % Patsy Rissa STEELE [facility] Work Phone: 01-25-2019 10:54-0400 BMI (Body Mass Index) 35.02 kg/m2 Srikanth Bennett LPN [facility] Work Phone: 01-25-2019 10:54-0400 Body Temperature 97.5 [degF] Srikanth Bennett LPN [facility] Work Phone: Comment on above: Method: Temporal 01-25-2019 10:54-0400 Body weight 87.54 kg Srikanth Bennett LPN [facility] Work Phone: 01-25-2019 10:54-0400 BP Diastolic 82 mm[Hg] Srikanth Bennett LPN [facility] Work Phone: Comment on above: Patient Position: Sitting; Cuff Location : Left Arm; Cuff Size: Standard 01-25-2019 10:54-0400 BP Systolic 130 mm[Hg] Srikanth Bennett LPN [facility] Work Phone: Comment on above: Patient Position: Sitting; Cuff Location : Left Arm; Cuff Size: Standard 01-25-2019 10:54-0400 BSA (Body Surface Area) 1.89 m2 Srikanth Bennett LPN [facility] Work Phone: 01-25-2019 10:54-0400 Height 158.12 cm Srikanth Bennett LPN [facility] Work Phone: 01-25-2019 10:54-0400 Pulse (Heart Rate) 75 /min Srikanth Bennett LPN [facility] Work Phone: Comment on above: Pattern: Regular 01-25-2019 10:54-0400 Pulse Oximetry 95 % Sushma Mueller [facility] Work Phone: Comment on above: Room air 01-25-2019 10:54-0400 Respiratory Rate 18 /min Srikanth Bennett MEDICAL CODING AUDITOR [facility] Work Phone: Comment on above: Pattern: Unlabored 01-25-2019 10:54-0400 SaO2% (BldA) [Mass fraction] 95 % Srikanth Bennett IVETTE [facility] Work Phone: 01-25-2019 10:54-0400 Weight 87.54 kg Sushma Mueller [facility] Work Phone: 08-21-2017 11:22-0500 BMI (Body Mass Index) 35.02 kg/m2 Patsy Slarb MEDICAL CODING AUDITOR [facility] Work Phone: 08-21-2017 11:22-0500 Body Temperature 98.5 [degF] Patsy Slarb MEDICAL CODING AUDITOR [facility] Work Phone: 08-21-2017 11:22-0500 Body weight 87.54 kg Patsy Slarb MEDICAL CODING AUDITOR [facility] Work Phone: 08-21-2017 11:22-0500 BP Diastolic 78 mm[Hg] Patsy Slarb MEDICAL CODING AUDITOR [facility] Work Phone: Comment on above: Patient Position: Sitting; Cuff Location : Left Arm; Cuff Size: Standard 08-21-2017 11:22-0500 BP Systolic 122 mm[Hg] Patsy Slarb MEDICAL CODING AUDITOR [facility] Work Phone: Comment on above: Patient Position: Sitting; Cuff Location : Left Arm; Cuff Size: Standard 08-21-2017 11:22-0500 BSA (Body Surface Area) 1.89 m2 Patsy Slarb MEDICAL CODING AUDITOR [facility] Work Phone: 08-21-2017 11:22-0500 Height 158.12 cm Patsy Slarb MEDICAL CODING AUDITOR [facility] Work Phone: 08-21-2017 11:22-0500 Pulse (Heart Rate) 91 /min Patsy Kwok MEDICAL CODING AUDITOR [facility] Work Phone: Comment on above: Pattern: Regular 08-21-2017 11:22-0500 Pulse Oximetry 95 % Sushma Mueller [facility] Work Phone: Comment on above: Room air 08-21-2017 11:22-0500 Respiratory Rate 16 /min Patsy Garrisonrb MEDICAL CODING AUDITOR [facility] Work Phone: Comment on above: Pattern: Unlabored 08-21-2017 11:22-0500 SaO2% (BldA) [Mass fraction] 95 % Patys Slarb MEDICAL CODING AUDITOR [facility] Work Phone: 08-21-2017 11:22-0500 Weight 87.54 kg Sushma Mueller [facility] Work Phone: 07-27-2017 10:23-0400 BMI (Body Mass Index) 35.56 kg/m2 Patsy Melirb MEDICAL CODING AUDITOR [facility] Work Phone: 07-27-2017 10:23-0400 Body Temperature 97.5 [degF] Patsy Slarb MEDICAL CODING AUDITOR [facility] Work Phone: 07-27-2017 10:23-0400 Body weight 88.91 kg Patsy Melirb MEDICAL CODING AUDITOR [facility] Work Phone: 07-27-2017 10:23-0400 BP Diastolic 84 mm[Hg] Patsy Slarb MEDICAL CODING AUDITOR [facility] Work Phone: Comment on above: Patient Position: Sitting; Cuff Location : Left Arm; Cuff Size: Standard 07-27-2017 10:23-0400 BP Systolic 152 mm[Hg] Patsy Slarb MEDICAL CODING AUDITOR [facility] Work Phone: Comment on above: Patient Position: Sitting; Cuff Location : Left Arm; Cuff Size: Standard 07-27-2017 10:23-0400 BSA (Body Surface Area) 1.9 m2 Patsy Slarb MEDICAL CODING AUDITOR [facility] Work Phone: 07-27-2017 10:23-0400 Height 158.12 cm Patsy Rissa STEELE [facility] Work Phone: 07-27-2017 10:23-0400 Pulse (Heart Rate) 85 /min Patsy Rissa STEELE [facility] Work Phone: Comment on above: Pattern: Regular 07-27-2017 10:23-0400 Pulse Oximetry 96 % Sushma Mueller [facility] Work Phone: Comment on above: Room air 07-27-2017 10:23-0400 Respiratory Rate 17 /min Patsy Kwok LPN [facility] Work Phone: Comment on above: Pattern: Unlabored 07-27-2017 10:23-0400 SaO2% (BldA) [Mass fraction] 96 % Patsy Kwok LPN [facility] Work Phone: 07-27-2017 10:23-0400 Weight 88.91 kg Sushma Mueller [facility] Internal Medicine Work Phone: 11-13-2016 11:24-0500 BMI (Body Mass Index) 34.65 kg/m2 Latasha Disla RN [facility] Work Phone: 11-13-2016 11:24-0500 Body Temperature 97.8 [degF] Latasha Disla RN [facility] Work Phone: 11-13-2016 11:24-0500 Body weight 86.64 kg Latasha Disla RN [facility] Work Phone: 11-13-2016 11:24-0500 BP Diastolic 78 mm[Hg] Latasha Disla RN [facility] Work Phone: Comment on above: Patient Position: Sitting; Cuff Location : Left Arm; Cuff Size: Standard 11-13-2016 11:24-0500 BP Systolic 138 mm[Hg] Latasha Disla RN [facility] Work Phone: Comment on above: Patient Position: Sitting; Cuff Location : Left Arm; Cuff Size: Standard 11-13-2016 11:24-0500 BSA (Body Surface Area) 1.88 m2 Latasha Disla RN [facility] Work Phone: 11-13-2016 11:24-0500 Height 158.12 cm Latasha Disla RN [facility] Work Phone: 11-13-2016 11:24-0500 Pulse (Heart Rate) 90 /min Latasha Disla RN [facility] Work Phone: Comment on above: Pattern: Regular 11-13-2016 11:24-0500 Pulse Oximetry 97 % Sushma Mueller [facility] Work Phone: Comment on above: Room air 11-13-2016 11:24-0500 Respiratory Rate 16 /min Latasha Disla RN [facility] Work Phone: Comment on above: Pattern: Unlabored 11-13-2016 11:24-0500 SaO2% (BldA) [Mass fraction] 97 % Latasha Disla RN [facility] Work Phone: 11-13-2016 11:24-0500 Weight 86.64 kg Sushma Mueller [facility] Work Phone: 10-20-2016 10:47-0500 BMI (Body Mass Index) 34.38 kg/m2 Evelyne Griffiths RN [facility] Work Phone: 10-20-2016 10:47-0500 Body Temperature 97.1 [degF] Evelyne Griffiths RN [facility] Work Phone: Comment on above: Method: Temporal 10-20-2016 10:47-0500 Body weight 85.96 kg Evelyne Griffiths RN [facility] Work Phone: 10-20-2016 10:47-0500 BP Diastolic 82 mm[Hg] Evelyne Griffiths RN [facility] Work Phone: Comment on above: Patient Position: Sitting; Cuff Location : Left Arm; Cuff Size: Standard 10-20-2016 10:47-0500 BP Systolic 124 mm[Hg] Evelyne Griffiths RN [facility] Work Phone: Comment on above: Patient Position: Sitting; Cuff Location : Left Arm; Cuff Size: Standard 10-20-2016 10:47-0500 BSA (Body Surface Area) 1.87 m2 Evelyne Griffiths RN [facility] Work Phone: 10-20-2016 10:47-0500 Height 158.12 cm Evelyne Griffiths RN [facility] Work Phone: 10-20-2016 10:47-0500 Pulse (Heart Rate) 86 /min Evelyne Griffiths RN [facility] Internal Medicine Work Phone: Comment on above: Pattern: Regular 10-20-2016 10:47-0500 Pulse Oximetry 97 % Sushma Mueller [facility] Internal Medicine Work Phone: Comment on above: Room air 10-20-2016 10:47-0500 Respiratory Rate 18 /min Evelyne Griffiths RN [facility] Work Phone: Comment on above: Pattern: Unlabored 10-20-2016 10:47-0500 SaO2% (BldA) [Mass fraction] 97 % Evelyne Griffiths RN [facility] Internal Medicine Work Phone: 10-20-2016 10:47-0500 Weight 85.96 kg Sushma Mueller [facility] Internal [facility] Work Phone: 08-07-2016 10:29-0400 BMI (Body Mass Index) 34.86 kg/m2 Latasha Disla RN [facility] Internal Medicine Work Phone: 08-07-2016 10:29-0400 Body Temperature 98 [degF] Latasha Disla RN [facility] Work Phone: Comment on above: Method: Temporal 08-07-2016 10:29-0400 Body weight 87.15 kg Latasha Disla RN [facility] Work Phone: 08-07-2016 10:29-0400 BP Diastolic 72 mm[Hg] Latasha Disla RN [facility] Work Phone: Comment on above: Patient Position: Sitting; Cuff Location : Left Arm; Cuff Size: Standard 08-07-2016 10:29-0400 BP Systolic 130 mm[Hg] Latasha Disla RN [facility] Work Phone: Comment on above: Patient Position: Sitting; Cuff Location : Left Arm; Cuff Size: Standard 08-07-2016 10:29-0400 BSA (Body Surface Area) 1.88 m2 Latasha Disla RN [facility] Internal Medicine Work Phone: 08-07-2016 10:29-0400 Height 158.12 cm Latasha Disla RN [facility] Work Phone: 08-07-2016 10:29-0400 Pulse (Heart Rate) 74 /min Latasha Disla RN [facility] Internal Medicine Work Phone: Comment on above: Pattern: Regular 08-07-2016 10:29-0400 Pulse Oximetry 98 % Sushma Mueller [facility] Internal Medicine Work Phone: Comment on above: Room air 08-07-2016 10:29-0400 Respiratory Rate 16 /min Latasha Disla RN [facility] Internal Medicine Work Phone: Comment on above: Pattern: Unlabored 08-07-2016 10:29-0400 SaO2% (BldA) [Mass fraction] 98 % Latasha Disla RN [facility] Internal Medicine Work Phone: 08-07-2016 10:29-0400 Weight 87.15 kg Sushma Mueller [facility] Work Phone: 05-13-2016 14:07-0400 BMI (Body Mass Index) 35.22 kg/m2 Latasha Disla RN [facility] Internal Medicine Work Phone: 05-13-2016 14:07-0400 Body Temperature 97.8 [degF] Latasha Disla RN [facility] Internal Medicine Work Phone: Comment on above: Method: Temporal 05-13-2016 14:07-0400 Body weight 88.06 kg Latasha Disla RN [facility] Internal Medicine Work Phone: 05-13-2016 14:07-0400 BP Diastolic 78 mm[Hg] Latasha Disla RN [facility] Internal Medicine Work Phone: Comment on above: Patient Position: Sitting; Cuff Location : Left Arm; Cuff Size: Standard 05-13-2016 14:07-0400 BP Systolic 120 mm[Hg] Latasha Disla RN [facility] Internal Medicine Work Phone: Comment on above: Patient Position: Sitting; Cuff Location : Left Arm; Cuff Size: Standard 05-13-2016 14:07-0400 BSA (Body Surface Area) 1.89 m2 Latasha Disla RN [facility] Internal Medicine Work Phone: 05-13-2016 14:07-0400 Height 158.12 cm Latasha Disla RN [facility] Work Phone: 05-13-2016 14:07-0400 Pulse (Heart Rate) 74 /min Latasha Disla RN [facility] Internal Medicine Work Phone: Comment on above: Pattern: Regular 05-13-2016 14:07-0400 Pulse Oximetry 97 % Sushma Valdessavanna [facility] Internal Medicine Work Phone: Comment on above: Room air 05-13-2016 14:07-0400 Respiratory Rate 16 /min Latasha Disla RN [facility] Work Phone: Comment on above: Pattern: Unlabored 05-13-2016 14:07-0400 SaO2% (BldA) [Mass fraction] 97 % Latasha Disla RN [facility] Internal Medicine Work Phone: 05-13-2016 14:07-0400 Weight 88.06 kg Sushma Mueller [facility] Internal Medicine Work Phone: 03-05-2016 [id number] BMI (Body Mass Index) 35.22 kg/m2 [facility] Work Phone: Comment on above: orthostaticssittin/72 P 107standin /70 P104 no extra dizziness upon standing 03-05-2016 08:11-0400 Body Temperature 98 [degF] [facility] Work Phone: Comment on above: orthostaticssittin/72 P 107standin /70 P104 no extra dizziness upon standing 03-05-2016 08:11-0400 Body weight 88.06 kg Riddhikathy Tapia [facility] Internal Medicine Work Phone: Comment on above: orthostaticssittin/72 P 107standin /70 P104 no extra dizziness upon standing 03-05-2016 08:11-0400 BP Diastolic 74 mm[Hg] Riddhi [facility] Internal Medicine Work Phone: Comment on above: Patient Position: Sitting; Cuff Location : Left Arm; Cuff Size: Standard orthostaticssittin/72 P 107standin/70 P104 no extra dizziness upon standing 03-05-2016 08:11-0400 BP Systolic 122 mm[Hg] [facility] Work Phone: Comment on above: Patient Position: Sitting; Cuff Location : Left Arm; Cuff Size: Standard orthostaticssittin/72 P 107standin/70 P104 no extra dizziness upon standing 03-05-2016 08:11-0400 BSA (Body Surface Area) 1.89 m2 Riddhi [facility] Internal Medicine Work Phone: Comment on above: orthostaticssittin/72 P 107standin /70 P104 no extra dizziness upon standing 03-05-2016 08:11-0400 [facility].12 [facility]: Comment on above: orthostaticssittin/72 P 107standin /70 P104 no extra dizziness upon standing 03-05-2016 08:11-0400 Pulse (Heart Rate) 100 /min Riddhi [facility] Internal Medicine Work Phone: Comment on above: Pattern: Regular orthostaticssittin/72 P 107standin/70 P104 no extra dizziness upon standing 03-05-2016 08:11-0400 Pulse Oximetry 95 % [facility] Work [facility]: Comment on above: Room air orthostaticssittin/72 P 107standin/70 P104 no extra dizziness upon standing 03-05-2016 08:11-0400 Respiratory Rate 18 /min Riddhi [facility] Internal Medicine Work Phone: Comment on above: Pattern: Unlabored orthostaticssittin/72 P 107standin/70 P104 no extra dizziness upon standing 03-05-2016 08:11-0400 SaO2% (BldA) [Mass fraction] 95 % Riddhi [facility] Internal Medicine Work Phone: 03-05-2016 08:11-0400 Weight 88.06 kg Sushma Mueller [facility] Internal Medicine Work Phone: Comment on above: orthostaticssittin/72 P 107standin /70 P104 no extra dizziness upon standing 12-03-2015 09:19-0500 BMI (Body Mass Index) 35.22 kg/m2 Patsy Slarb MEDICAL CODING AUDITOR [facility] Work Phone: 12-03-2015 09:19-0500 Body Temperature 97.4 [degF] Patsy Slarb MEDICAL CODING AUDITOR [facility] Work Phone: 12-03-2015 09:19-0500 Body weight 88.06 kg Patsy Slarb MEDICAL CODING AUDITOR [facility] Work Phone: 12-03-2015 09:19-0500 BP Diastolic 82 mm[Hg] Patsy Slarb MEDICAL CODING AUDITOR [facility] Work Phone: Comment on above: Patient Position: Sitting; Cuff Location : Left Arm; Cuff Size: Standard 12-03-2015 09:19-0500 BP Systolic 116 mm[Hg] Patsy Slarb MEDICAL CODING AUDITOR [facility] Work Phone: Comment on above: Patient Position: Sitting; Cuff Location : Left Arm; Cuff Size: Standard 12-03-2015 09:19-0500 BSA (Body Surface Area) 1.89 m2 Patsy Slarb MEDICAL CODING AUDITOR [facility] Work Phone: 12-03-2015 09:19-0500 Height 158.12 cm Patsy Slarb MEDICAL CODING AUDITOR [facility] Work Phone: 12-03-2015 09:19-0500 Pulse (Heart Rate) 94 /min Patsy Slarb MEDICAL CODING AUDITOR [facility] Work Phone: Comment on above: Pattern: Regular 12-03-2015 09:19-0500 Pulse Oximetry 98 % Sushma Mueller [facility] Internal Medicine Work Phone: Comment on above: Room air 12-03-2015 09:19-0500 Respiratory Rate 18 /min Patsy Slarb MEDICAL CODING AUDITOR [facility] Work Phone: Comment on above: Pattern: Unlabored 12-03-2015 09:19-0500 SaO2% (BldA) [Mass fraction] 98 % Patsy Kwok IVETTE [facility] Internal Medicine Work Phone: 12-03-2015 09:19-0500 Weight 88.06 kg Sushma Mueller [facility] Medicine Work Phone: 05-14-2015 10:44-0400 BMI (Body Mass Index) 35.38 kg/m2 [facility] Internal Medicine Work Phone: 05-14-2015 10:44-0400 Body Temperature 97.5 [degF] [facility] Internal Medicine Work Phone: 05-14-2015 10:44-0400 Body weight 88.[address] [facility] Internal Medicine Work Phone: 05-14-2015 10:44-0400 BP Diastolic 80 mm[Hg] [facility] Internal Medicine Work Phone: Comment on above: Patient Position: Sitting; Cuff Location : Left Arm; Cuff Size: Standard 05-14-2015 10:44-0400 BP Systolic 132 mm[Hg] [facility] Internal Medicine Work Phone: Comment on above: Patient Position: Sitting; Cuff Location : Left Arm; Cuff Size: Standard 05-14-2015 10:44-0400 BSA (Body Surface Area) 1.[address] [facility] Internal Medicine Work Phone: 05-14-2015 10:44-[address] [facility] Internal Medicine Work Phone: 05-14-2015 10:44-0400 Pulse (Heart Rate) 86 /min [facility] Internal Medicine Work Phone: Comment on above: Pattern: Regular 05-14-2015 10:44-0400 Pulse Oximetry 96 % Sushma Mueller [facility] Medicine Work Phone: Comment on above: Room air 05-14-2015 10:44-0400 SaO2% (BldA) [Mass fraction] 96 % [facility] Internal Medicine Work Phone: 05-14-2015 10:44-0400 Weight 88.45 kg Sushma Mueller [facility] Work Phone: 04-04-2015 10:18-0400 BMI (Body Mass Index) 35.74 kg/m2 Nika Liliam [facility] Work Phone: 04-04-2015 10:18-0400 Body Temperature 97.8 [degF] Nika Liliam [facility] Internal Medicine Work Phone: Comment on above: Method: Oral 04-04-2015 10:18-0400 Body weight 89.36 kg Nika Liliam [facility] Work Phone: 04-04-2015 10:18-0400 BP Diastolic 86 mm[Hg] Nika Liliam [facility] Internal [facility] Work Phone: Comment on above: Patient Position: Sitting; Cuff Location : Left Arm; Cuff Size: Large 04-04-2015 10:18-0400 BP Systolic 136 mm[Hg] Nika Liliam [facility] Internal Medicine Work Phone: Comment on above: Patient Position: Sitting; Cuff Location : Left Arm; Cuff Size: Large 04-04-2015 10:18-0400 BSA (Body Surface Area) 1.9 m2 Nika Liliam [facility] Work Phone: 04-04-2015 10:18-0400 Height 158.12 cm Nika Ricketts [facility] Internal Medicine Work Phone: 04-04-2015 10:18-0400 Pulse (Heart Rate) 74 /min Nika Liliam [facility] Work Phone: Comment on above: Pattern: Regular 04-04-2015 10:18-0400 Respiratory Rate 16 /min Nika Liliam [facility] Internal Medicine Work Phone: Comment on above: Pattern: Unlabored 04-04-2015 10:18-0400 Weight 89.36 kg Sushma Mueller [facility] Internal Medicine Work Phone: 04-25-2013 10:42-0400 BMI (Body Mass Index) 32.48 kg/m2 Latasha Disla RN [facility] Internal Medicine Work Phone: Comment on above: patient had checked 2x on Thursday 5 isabel socorro between each check at work 140/60 and 132/64 04-25-2013 10:42-0400 Body Temperature 98.9 [degF] Latasha Disla RN [facility] Internal Medicine Work Phone: Comment on above: Method: Temporal patient had checked 2x on Thursday 5 minutes between each check at work 140/60 and 132/64 04-25-2013 10:42-0400 Body weight 81.19 kg Latasha Disla RN [facility] Internal Medicine Work Phone: Comment on above: patient had checked 2x on Thursday 5 isabel socorro between each check at work 140/60 and 132/64 04-25-2013 10:42-0400 BP Diastolic 76 mm[Hg] Latasha Disla RN [facility] Internal Medicine Work Phone: Comment on above: Patient Position: Sitting; Cuff Location : Left Arm; Cuff Size: Standard patient had checked 2x on Thursday 5 minutes between each check at work 140/60 and 132/64 04-25-2013 10:42-0400 BP Systolic 128 mm[Hg] Latasha Disla RN [facility] Work Phone: Comment on above: Patient Position: Sitting; Cuff Location : Left Arm; Cuff Size: Standard patient had checked 2x on Thursday 5 minutes between each check at work 140/60 and 132/64 04-25-2013 10:42-0400 BSA (Body Surface Area) 1.83 m2 Latasha Disla RN [facility] Work Phone: Comment on above: patient had checked 2x on Thursday 5 isabel socorro between each check at work 140/60 and 132/64 04-25-2013 10:42-0400 Height 158.12 cm Latasha Disla RN [facility] Work Phone: Comment on above: patient had checked 2x on Thursday 5 isabel socorro between each check at work 140/60 and 132/64 04-25-2013 10:42-0400 Pulse (Heart Rate) 87 /min Latasha Disla RN [facility] Internal Medicine Work Phone: Comment on above: Pattern: Regular patient had checked 2x on Thursday 5 minutes between each check at work 140/60 and 132/64 04-25-2013 10:42-0400 Pulse Oximetry 98 % [facility] Internal Medicine Work Phone: Comment on above: Room air patient had checked 2x on Thursday 5 minutes between each check at work 140/60 and 132/64 04-25-2013 10:42-0400 Respiratory Rate 16 /min Latasha Disla RN [facility] Work Phone: Comment on above: Pattern: Unlabored patient had checked 2x on Thursday 5 minutes between each check at work 140/60 and 132/64 04-25-2013 10:42-0400 SaO2% (BldA) [Mass fraction] 98 % Latasha Disla RN [facility] Work Phone: 04-25-2013 10:42-0400 Weight 81.19 kg [facility] Internal Medicine Work Phone: Comment on above: patient had checked 2x on Thursday 5 isabel socorro between each check at work 140/60 and 132/64 04-18-2013 12:08-0400 BMI (Body Mass Index) 32.48 kg/m2 Nika Calhoun [facility] by [facility] Internal Medicine Work Phone: 04-18-2013 12:08-0400 Body Temperature 96.6 [degF] Nika Ricketts [facility] Internal Medicine Work Phone: 04-18-2013 12:08-0400 Body weight 81.19 kg Nika Ricketts [facility] Internal Medicine Work Phone: 04-18-2013 12:08-0400 BP Diastolic 90 mm[Hg] Nika Ricketts [facility] Internal Medicine Work Phone: Comment on above: Patient Position: Sitting; Cuff Location : Left Arm; Cuff Size: Large 04-18-2013 12:08-0400 BP Systolic 132 mm[Hg] Nika Ricketts [facility] Internal Medicine Work Phone: Comment on above: Patient Position: Sitting; Cuff Location : Left Arm; Cuff Size: Large 04-18-2013 12:08-0400 BSA (Body Surface Area) 1.83 m2 Nika Ricketts [facility] Internal Medicine Work Phone: 04-18-2013 12:08-0400 Height 158.12 cm Nika Liliam [facility] Internal Medicine Work Phone: 04-18-2013 12:08-0400 Pulse (Heart Rate) 80 /min [facility] Work Phone: Comment on above: Pattern: Regular 04-18-2013 12:08-0400 Respiratory Rate 16 /min Nika Millslaila [facility] Internal Medicine Work Phone: Comment on above: Pattern: Unlabored 04-18-2013 12:08-0400 Weight 81.19 kg Sushma Mueller [facility] Internal Medicine Work Phone: 03-22-2013 08:58-0400 BMI (Body Mass Index) 32.84 kg/m2 Nika Millslaila [facility] Internal Medicine Work Phone: 03-22-2013 08:58-0400 Body Temperature 98.3 [degF] Nika Millslaila [facility] Work Phone: 03-22-2013 08:58-0400 Body weight 82.1 kg Nika Liliam [facility] Internal Medicine Work Phone: 03-22-2013 08:58-0400 BP Diastolic 70 mm[Hg] Nika Liliam [facility] Medicine Work Phone: Comment on above: Patient Position: Sitting; Cuff Location : Left Arm; Cuff Size: Large 03-22-2013 08:58-0400 BP Systolic 136 mm[Hg] Nika Liliam [facility] Internal Medicine Work Phone: Comment on above: Patient Position: Sitting; Cuff Location : Left Arm; Cuff Size: Large 03-22-2013 08:58-0400 BSA (Body Surface Area) 1.84 m2 Nika Liliam [facility] Internal Medicine Work Phone: 03-22-2013 08:58-0400 Height 158.12 cm Nika Ricketts [facility] Internal Medicine Work Phone: 03-22-2013 08:58-0400 Pulse (Heart Rate) 84 /min Nika Sanchezensiv Internal Medicine Work Phone: Comment on above: Pattern: Regular 03-22-2013 08:58-0400 Respiratory Rate 18 /min Nika Ricketts [facility] Internal Medicine Work Phone: Comment on above: Pattern: Unlabored 03-22-2013 08:58-0400 Weight 82.1 kg Sushma Mueller [facility] Internal Medicine Work Phone: 01-17-2013 13:20-0400 BMI (Body Mass Index) 33.2 kg/m2 [facility] Internal [facility] Work Phone: 01-17-2013 13:20-0400 Body Temperature 97.4 [degF] Nika Ricketts [facility] Internal Medicine Work Phone: 01-17-2013 13:20-0400 Body weight 83.01 kg Nika Ricketts [facility] Internal Medicine Work Phone: 01-17-2013 13:20-0400 BP Diastolic 78 mm[Hg] Nika Ricketts [facility] Internal Medicine Work Phone: Comment on above: Patient Position: Sitting; Cuff Location : Left Arm; Cuff Size: Large 01-17-2013 13:20-0400 BP Systolic 156 mm[Hg] Nika Ricketts [facility] Internal Medicine Work Phone: Comment on above: Patient Position: Sitting; Cuff Location : Left Arm; Cuff Size: Large 01-17-2013 13:20-0400 BSA (Body Surface Area) 1.85 m2 Nika Gloverjasper [facility] Internal Medicine Work Phone: 01-17-2013 13:20-0400 Height 158.12 cm Nika Millslaila [facility] Internal Medicine Work Phone: 01-17-2013 13:20-0400 Pulse (Heart Rate) 76 /min Nika Ricketts [facility] Work Phone: Comment on above: Pattern: Regular 01-17-2013 13:20-0400 Respiratory Rate 18 /min Nika Ricketts [facility] Internal Medicine Work Phone: Comment on above: Pattern: Unlabored 01-17-2013 13:20-0400 Weight 83.01 kg Sushma Mueller [facility] Internal Medicine Work Phone: 12-24-2012 09:44-0400 BMI (Body Mass Index) 33.2 kg/m2 [facility] Work Phone: 12-24-2012 09:44-0400 Body Temperature 97.8 [degF] Nika Ricketts [facility] Internal Medicine Work Phone: 12-24-2012 09:44-0400 Body weight 83.01 kg Nika Ricketts [facility] Internal Medicine Work Phone: 12-24-2012 09:44-0400 BP Diastolic 62 mm[Hg] Nika Ricketts [facility] Internal Medicine Work Phone: Comment on above: Patient Position: Sitting; Cuff Location : Left Arm; Cuff Size: Large 12-24-2012 09:44-0400 BP Systolic 136 mm[Hg] Niak Ricketts [facility] Internal Medicine Work Phone: Comment on above: Patient Position: Sitting; Cuff Location : Left Arm; Cuff Size: Large 12-24-2012 09:44-0400 BSA (Body Surface Area) 1.85 m2 Nika Ricketts [facility] Internal Medicine Work Phone: 12-24-2012 09:44-0400 Height 158.12 cm Nika Gloverjasper [facility] Internal Medicine Work Phone: 12-24-2012 09:44-0400 Pulse (Heart Rate) 88 /min Nika Ricketts [facility] Work Phone: Comment on above: Pattern: Regular 12-24-2012 09:44-0400 Respiratory Rate 18 /min Nika Gloverjasper [facility] Internal Medicine Work Phone: Comment on above: Pattern: Unlabored 12-24-2012 09:44-0400 Weight 83.01 kg Sushma Mueller [facility] Internal Medicine Work Phone: 09-27-2012 11:25-0500 BMI (Body Mass Index) 33.2 kg/m2 Nika Millslaila [facility] Work Phone: 09-27-2012 11:25-0500 Body Temperature 98.9 [degF] Nika Millslaila [facility] Internal Medicine Work Phone: 09-27-2012 11:25-0500 Body weight 83.01 kg Nika Millsjostinjasper [facility] Internal Medicine Work Phone: 09-27-2012 11:25-0500 BP Diastolic 68 mm[Hg] Nika Liliam [facility] Internal Medicine Work Phone: Comment on above: Patient Position: Sitting; Cuff Location : Left Arm; Cuff Size: Large 09-27-2012 11:25-0500 BP Systolic 116 mm[Hg] Nika Gloverjasper [facility] Internal Medicine Work Phone: Comment on above: Patient Position: Sitting; Cuff Location : Left Arm; Cuff Size: Large 09-27-2012 11:25-0500 BSA (Body Surface Area) 1.85 m2 Nika Millslaila [facility] Internal Medicine Work Phone: 09-27-2012 11:25-0500 Height 158.12 cm Nika Liliam [facility] Internal Medicine Work Phone: 09-27-2012 11:25-0500 Pulse (Heart Rate) 88 /min Nika Millslaila [facility] Work Phone: Comment on above: Pattern: Regular 09-27-2012 11:25-0500 Respiratory Rate 16 /min Nika Millslaila [facility] Internal Medicine Work Phone: Comment on above: Pattern: Unlabored 09-27-2012 11:25-0500 Weight 83.01 kg Sushma Mueller [facility] Internal Medicine Work Phone: 09-08-2012 15:40-0500 BMI (Body Mass Index) 33.93 kg/m2 Latasha Disla RN [facility] Internal Medicine Work Phone: 09-08-2012 15:40-0500 Body Temperature 97.4 [degF] Latasha Disla RN [facility] Work Phone: Comment on above: Method: Oral 09-08-2012 15:40-0500 Body weight 84.82 kg Latasha Disla RN [facility] Work Phone: 09-08-2012 15:40-0500 BP Diastolic 72 mm[Hg] Latasha Disla RN [facility] Internal Medicine Work Phone: Comment on above: Patient Position: Sitting; Cuff Location : Left Arm; Cuff Size: Standard 09-08-2012 15:40-0500 BP Systolic 122 mm[Hg] Latasha Disla RN [facility] Work Phone: Comment on above: Patient Position: Sitting; Cuff Location : Left Arm; Cuff Size: Standard 09-08-2012 15:40-0500 BSA (Body Surface Area) 1.86 m2 Latasha Disla [facility] Work Phone: 09-08-2012 15:40-0500 Height 158.12 cm Latasha Disla [facility] Work Phone: 09-08-2012 15:40-0500 Pulse (Heart Rate) 72 /min Latasha Disla RN [facility] Work Phone: Comment on above: Pattern: Regular 09-08-2012 15:40-0500 Pulse Oximetry 97 % Sushma Mueller [facility] Work Phone: Comment on above: Room air 09-08-2012 15:40-0500 Respiratory Rate 16 /min Latasha Disla RN [facility] Work Phone: Comment on above: Pattern: Unlabored 09-08-2012 15:40-0500 SaO2% (BldA) [Mass fraction] 97 % Latasha Disla RN [facility] Work Phone: 09-08-2012 15:40-0500 Weight 84.82 kg Sushma Mueller [facility] Work Phone: 02-16-2012 14:49-0400 BMI (Body Mass Index) 33.93 kg/m2 [facility] Work Phone: 02-16-2012 14:49-0400 Body Temperature 97.4 [degF] Nika Ricketts [facility] Internal Medicine Work Phone: 02-16-2012 14:49-0400 Body weight 84.82 kg Nika Ricketts [facility] Internal Medicine Work Phone: 02-16-2012 14:49-0400 BP Diastolic 60 mm[Hg] Nika Ricketts [facility] Internal Medicine Work Phone: Comment on above: Patient Position: Sitting; Cuff Location : Left Arm; Cuff Size: Large 02-16-2012 14:49-0400 BP Systolic 114 mm[Hg] Nika Ricketts [facility] Internal Medicine Work Phone: Comment on above: Patient Position: Sitting; Cuff Location : Left Arm; Cuff Size: Large 02-16-2012 14:49-0400 BSA (Body Surface Area) 1.86 m2 Nika Ricketts [facility] Internal Medicine Work Phone: 02-16-2012 14:49-0400 Height 158.12 cm Nika Ricketts [facility] Internal Medicine Work Phone: 02-16-2012 14:49-0400 Pulse (Heart Rate) 68 /min Nika Ricketts [facility] Work Phone: Comment on above: Pattern: Regular 02-16-2012 14:49-0400 Respiratory Rate 16 /min Nika Ricketts [facility] Internal Medicine Work Phone: Comment on above: Pattern: Unlabored 02-16-2012 14:49-0400 Weight 84.82 kg Sushma Mueller [facility] Internal Medicine Work Phone: 11-05-2011 16:09-0500 BMI (Body Mass Index) 33.2 kg/m2 Nika Ricketts [facility] Internal Medicine Work Phone: 11-05-2011 16:09-0500 Body Temperature 98.1 [degF] Nika Ricketts [facility] Internal Medicine Work Phone: 11-05-2011 16:09-0500 Body weight 83.01 kg Nika Ricketts [facility] Internal Medicine Work Phone: 11-05-2011 16:09-0500 BP Diastolic 88 mm[Hg] Nika Ricketts [facility] Internal Medicine Work Phone: Comment on above: Patient Position: Sitting; Cuff Location : Left Arm; Cuff Size: Large 11-05-2011 16:09-0500 BP Systolic 142 mm[Hg] Nika Ricketts [facility] Internal Medicine Work Phone: Comment on above: Patient Position: Sitting; Cuff Location : Left Arm; Cuff Size: Large 11-05-2011 16:09-0500 BSA (Body Surface Area) 1.85 m2 Nika Millslaila [facility] Internal Medicine Work Phone: 11-05-2011 16:09-0500 Height 158.12 cm Nika Ricketts [facility] Internal Medicine Work Phone: 11-05-2011 16:09-0500 Pulse (Heart Rate) 72 /min Nika Ricketts [facility] Internal Medicine Work Phone: Comment on above: Pattern: Regular 11-05-2011 16:09-0500 Respiratory Rate 16 /min Nika Millslaila [facility] Internal Medicine Work Phone: Comment on above: Pattern: Unlabored 11-05-2011 16:09-0500 Weight 83.01 kg Sushma Mueller [facility] Internal Medicine Work Phone: 10-17-2011 11:39-0500 BMI (Body Mass Index) 33.93 kg/m2 Darling Nur LPN [facility] Internal Medicine Work Phone: 10-17-2011 11:39-0500 Body Temperature 98.3 [degF] Darling Nur LPN [facility] Internal Medicine Work Phone: Comment on above: Method: Oral 10-17-2011 11:39-0500 Body weight 84.82 kg Darling Nur LPN [facility] Internal Medicine Work Phone: 10-17-2011 11:39-0500 BP Diastolic 82 mm[Hg] Darling Nur LPN [facility] Internal Medicine Work Phone: Comment on above: Patient Position: Sitting; Cuff Location : Left Arm; Cuff Size: Standard 10-17-2011 11:39-0500 BP Systolic 124 mm[Hg] Darling Nur LPN [facility] Internal Medicine Work Phone: Comment on above: Patient Position: Sitting; Cuff Location : Left Arm; Cuff Size: Standard 10-17-2011 11:39-0500 BSA (Body Surface Area) 1.86 m2 Darling Nur LPN [facility] Internal Medicine Work Phone: 10-17-2011 11:39-0500 Height 158.12 cm Darling Nur LPN [facility] Internal Medicine Work Phone: 10-17-2011 11:39-0500 Pulse (Heart Rate) 78 /min Darling Nur LPN [facility] Internal Medicine Work Phone: Comment on above: Pattern: Regular 10-17-2011 11:39-0500 Pulse Oximetry 97 % Sushma Mueller [facility] Internal Medicine Work Phone: Comment on above: Room air 10-17-2011 11:39-0500 Respiratory Rate 17 /min Darling Nur LPN [facility] Internal Medicine Work Phone: Comment on above: Pattern: Unlabored 10-17-2011 11:39-0500 SaO2% (BldA) [Mass fraction] 97 % Darling Nur LPN [facility] Internal Medicine Work Phone: 10-17-2011 11:39-0500 Weight 84.82 kg Sushma Mueller [facility] Internal Medicine Work Phone: 08-04-2011 11:31-0400 BMI (Body Mass Index) 33.93 kg/m2 [facility] Internal Medicine Work Phone: 08-04-2011 11:31-0400 Body Temperature 98.1 [degF] Nika Ricketts [facility] Internal Medicine Work Phone: 08-04-2011 11:31-0400 Body weight 84.82 kg Nika Ricketts [facility] Internal Medicine Work Phone: 08-04-2011 11:31-0400 BP Diastolic 70 mm[Hg] Nika Ricketts [facility] Internal Medicine Work Phone: Comment on above: Patient Position: Sitting; Cuff Location : Left Arm; Cuff Size: Large 08-04-2011 11:31-0400 BP Systolic 128 mm[Hg] Nika Ricketts [facility] Internal Medicine Work Phone: Comment on above: Patient Position: Sitting; Cuff Location : Left Arm; Cuff Size: Large 08-04-2011 11:31-0400 BSA (Body Surface Area) 1.86 m2 Nika Ricketts [facility] Internal Medicine Work Phone: 08-04-2011 11:31-0400 Height 158.12 cm Nika Ricketts [facility] Internal Medicine Work Phone: 08-04-2011 11:31-0400 Pulse (Heart Rate) 76 /min [facility] Internal [facility] Work Phone: Comment on above: Pattern: Regular 08-04-2011 11:31-0400 Respiratory Rate 18 /min Nika Ricketts [facility] Internal Medicine Work Phone: Comment on above: Pattern: Unlabored 08-04-2011 11:31-0400 Weight 84.82 kg Sushma Mueller [facility] Internal Medicine Work Phone: 04-07-2011 11:06-0400 BMI (Body Mass Index) 34.11 kg/m2 Nika Ricketts [facility] Internal Medicine Work Phone: 04-07-2011 11:06-0400 Body Temperature 98.3 [degF] Nika Ricketts [facility] Internal Medicine Work Phone: 04-07-2011 11:06-0400 Body weight 85.28 kg Nika Gloverjasper [facility] Internal Medicine Work Phone: 04-07-2011 11:06-0400 BP Diastolic 52 mm[Hg] Nika Ricketts [facility] Internal Medicine Work Phone: Comment on above: Patient Position: Sitting; Cuff Location : Left Arm; Cuff Size: Large 04-07-2011 11:06-0400 BP Systolic 116 mm[Hg] Nika Ricketts [facility] Internal Medicine Work Phone: Comment on above: Patient Position: Sitting; Cuff Location : Left Arm; Cuff Size: Large 04-07-2011 11:06-0400 BSA (Body Surface Area) 1.87 m2 Nika Ricketts [facility] Internal Medicine Work Phone: 04-07-2011 11:06-0400 Height 158.12 cm Nika Ricketts [facility] Internal Medicine Work Phone: 04-07-2011 11:06-0400 Pulse (Heart Rate) 84 /min [facility] Internal Medicine Work Phone: Comment on above: Pattern: Regular 04-07-2011 11:06-0400 Respiratory Rate 16 /min Nika Ricketts [facility] Internal Medicine Work Phone: Comment on above: Pattern: Unlabored 04-07-2011 11:06-0400 Weight 85.28 kg Sushma Mueller [facility] Internal Medicine Work Phone: 10-08-2010 11:22-0500 Body Temperature 98.1 [degF] Nika Ricketts [facility] Internal Medicine Work Phone: 10-08-2010 11:22-0500 Body weight 83.46 kg Nika Ricketts [facility] Internal Medicine Work Phone: 10-08-2010 11:22-0500 BP Diastolic 74 mm[Hg] Nika Ricketts [facility] Internal Medicine Work Phone: Comment on above: Patient Position: Standing; Cuff Locatio n: Left Arm; Cuff Size: Large 10-08-2010 11:22-0500 BP Systolic 136 mm[Hg] Nika Ricketts [facility] Internal Medicine Work Phone: Comment on above: Patient Position: Standing; Cuff Locatio n: Left Arm; Cuff Size: Large 10-08-2010 11:22-0500 Pulse (Heart Rate) 72 /min Nika Ricketts [facility] Internal Medicine Work Phone: Comment on above: Pattern: Regular 10-08-2010 11:22-0500 Respiratory Rate 18 /min Nika Ricketts [facility] Internal Medicine Work Phone: Comment on above: Pattern: Unlabored 10-08-2010 11:22-0500 Weight 83.46 kg Sushma Mueller [facility] Internal Medicine Work Phone: 06-24-2010 16:24-0400 Body Temperature 97.5 [degF] Nika Ricketts [facility] Internal Medicine Work Phone: 06-24-2010 16:24-0400 Body weight 84.82 kg Nika Ricketts [facility] Internal Medicine Work Phone: 06-24-2010 16:24-0400 BP Diastolic 62 mm[Hg] Nika Ricketts [facility] Internal Medicine Work Phone: Comment on above: Patient Position: Sitting; Cuff Location : Left Arm; Cuff Size: Large 06-24-2010 16:24-0400 BP Systolic 124 mm[Hg] Nika Ricketts [facility] Internal Medicine Work Phone: Comment on above: Patient Position: Sitting; Cuff Location : Left Arm; Cuff Size: Large 06-24-2010 16:24-0400 Pulse (Heart Rate) 76 /min Nika Ricketts [facility] Internal Medicine Work Phone: Comment on above: Pattern: Regular 06-24-2010 16:24-0400 Respiratory Rate 18 /min Nika Ricketts [facility] Internal Medicine Work Phone: Comment on above: Pattern: Unlabored 06-24-2010 16:24-0400 Weight 84.82 kg Sushma Mueller [facility] Internal Medicine Work Phone: 04-23-2010 10:48-0400 BP Diastolic 52 mm[Hg] Nika Ricketts [facility] Internal Medicine Work Phone: Comment on above: Patient Position: Sitting; Cuff Location : Left Arm; Cuff Size: Standard 04-23-2010 10:48-0400 BP Systolic 96 mm[Hg] Nika Ricketts [facility] Internal Medicine Work Phone: Comment on above: Patient Position: Sitting; Cuff Location : Left Arm; Cuff Size: Standard 04-23-2010 10:48-0400 Pulse (Heart Rate) 80 /min Nika Gloverjasper [facility] Internal Medicine Work Phone: Comment on above: Pattern: Regular 04-23-2010 10:48-0400 Respiratory Rate 18 /min Nika Gloverjasper [facility] Internal Medicine Work Phone: Comment on above: Pattern: Unlabored 04-09-2010 14:36-0400 BMI (Body Mass Index) 35.4 kg/m2 Nika Gloverjasper [facility] Internal Medicine Work Phone: 04-09-2010 14:36-0400 Body weight 87.09 kg Nika Gloverjasper [facility] Internal Medicine Work Phone: 04-09-2010 14:36-0400 BP Diastolic 72 mm[Hg] [facility] Work [facility]: Comment on above: Patient Position: Sitting; Cuff Location : Right Arm; Cuff Size: Standard 04-09-2010 14:36-0400 BP Systolic 154 mm[Hg] Nika Ricketts [facility] Internal Medicine Work Phone: Comment on above: Patient Position: Sitting; Cuff Location : Right Arm; Cuff Size: Standard 04-09-2010 14:36-0400 BSA (Body Surface Area) 1.87 m2 Nika Gloverjasper [facility] Internal Medicine Work Phone: 04-09-2010 14:36-0400 Height 156.84 cm [facility] Work Phone: 04-09-2010 14:36-0400 Pulse (Heart Rate) 80 /min Nika Gloverjasper [employer] Internal Medicine Work Phone: Comment on above: Pattern: Regular 04-09-2010 14:36-0400 Respiratory Rate 18 /min Nika Millslaila [facility] Internal Medicine Work Phone: Comment on above: Pattern: Unlabored 04-09-2010 14:36-0400 Weight 87.09 kg Sushma Mueller [facility] Internal Medicine Work Phone: 03-06-2010 09:33-0400 Body Temperature 98 [degF] Nika Millslaila [facility] Internal Medicine Work Phone: 03-06-2010 09:33-0400 BP Diastolic 80 mm[Hg] Nika Millsjostinjasper [facility] Internal Medicine Work Phone: Comment on above: Patient Position: Sitting; Cuff Location : Left Arm; Cuff Size: Standard 03-06-2010 09:33-0400 BP Systolic 148 mm[Hg] Nika Liliam [facility] Internal Medicine Work Phone: Comment on above: Patient Position: Sitting; Cuff Location : Left Arm; Cuff Size: Standard 03-06-2010 09:33-0400 Pulse (Heart Rate) 80 /min Nika Liliam [facility] Internal Medicine Work Phone: Comment on above: Pattern: Regular 03-06-2010 09:33-0400 Pulse Oximetry 96 % Sushma Mueller [facility] Internal Medicine Work Phone: Comment on above: Room air 03-06-2010 09:33-0400 Respiratory Rate 20 /min Nika Millslaila [facility] Internal Medicine Work Phone: Comment on above: Pattern: Unlabored 03-06-2010 09:33-0400 SaO2% (BldA) [Mass fraction] 96 % Nika Liliam [facility] Internal Medicine Work Phone: 01-16-2010 08:49-0400 Body Temperature 97.2 [degF] MAKENZIE Webb LPN [facility] Internal Medicine Work Phone: Comment on above: Method: Oral 01-16-2010 08:49-0400 Body weight 78.47 kg MAKENZIE Webb LPN [facility] Internal Medicine Work Phone: 01-16-2010 08:49-0400 BP Diastolic 78 mm[Hg] MAKENZIE Webb LPN [facility] Internal Medicine Work Phone: Comment on above: Patient Position: Sitting; Cuff Location : Left Arm; Cuff Size: Standard 01-16-2010 08:49-0400 BP Systolic 118 mm[Hg] MAKENZIE Webb [facility] Internal Medicine Work Phone: Comment on above: Patient Position: Sitting; Cuff Location : Left Arm; Cuff Size: Standard 01-16-2010 08:49-0400 Pulse (Heart Rate) 70 /min [facility] Work Phone: Comment on above: Pattern: Regular 01-16-2010 08:49-0400 Respiratory Rate 18 /min MAKENZIE Webb [facility] Internal Medicine Work Phone: Comment on above: Pattern: Unlabored 01-16-2010 08:49-0400 Weight 78.47 kg Sushma Mueller [facility] Internal Medicine Work Phone: 09-27-2009 13:23-0500 BMI (Body Mass Index) 30.65 kg/m2 Darling Nur [facility] Internal Medicine Work Phone: 09-27-2009 13:23-0500 Body Temperature 97.9 [degF] Darling Nur [facility] Internal Medicine Work Phone: Comment on above: Method: Oral 09-27-2009 13:23-0500 Body weight 78.47 kg Darling Nur [facility] Internal Medicine Work Phone: 09-27-2009 13:23-0500 BP Diastolic 78 mm[Hg] Darling Nur [facility] Internal Medicine Work Phone: Comment on above: Patient Position: Sitting; Cuff Location : Left Arm; Cuff Size: Standard 09-27-2009 13:23-0500 BP Systolic 126 mm[Hg] Darling Nur [facility] Internal Medicine Work Phone: Comment on above: Patient Position: Sitting; Cuff Location : Left Arm; Cuff Size: Standard 09-27-2009 13:23-0500 BSA (Body Surface Area) 1.82 m2 Darling Nur [facility] Internal Medicine Work Phone: 09-27-2009 13:23-0500 Head Circumference 0 cm Sushma Mueller [facility] Internal Medicine Work Phone: 09-27-2009 13:23-0500 Head Occipital-frontal circumference 0 cm Darling Nur LPN [facility] Internal Medicine Work Phone: 09-27-2009 13:23-0500 Height 160.02 cm Darling Nur LPN [facility] Internal Medicine Work Phone: 09-27-2009 13:23-0500 Pulse (Heart Rate) 82 /min Darling Nur LPN [facility] Internal Medicine Work Phone: Comment on above: Pattern: Regular 09-27-2009 13:23-0500 Pulse Oximetry 95 % Sushma Mueller [facility] Internal Medicine Work Phone: Comment on above: Room air 09-27-2009 13:23-0500 Respiratory Rate 17 /min Darling Nur LPN [facility] Internal Medicine Work Phone: Comment on above: Pattern: Unlabored 09-27-2009 13:23-0500 SaO2% (BldA) [Mass fraction] 95 % Darling Nur LPN [facility] Internal Medicine Work Phone: 09-27-2009 13:23-0500 Weight 78.47 kg Sushma Mueller [facility] Internal Medicine Work Phone: 08-15-2009 15:33-0500 BMI (Body Mass Index) 30.65 kg/m2 Zuleika Crocker [facility] Internal Medicine Work Phone: 08-15-2009 15:33-0500 Body Temperature 101 [degF] Zuleika Crocker [facility] Internal Medicine Work Phone: Comment on above: Method: Oral 08-15-2009 15:33-0500 Body weight 78.47 kg Zuleika [facility] Internal Medicine Work Phone: 08-15-2009 15:33-0500 BSA (Body Surface Area) 1.82 m2 Zuleika [facility] Internal Medicine Work Phone: 08-15-2009 15:33-0500 Head Circumference 0 cm [facility] Work Phone: 08-15-2009 15:33-0500 Head Occipital-frontal circumference 0 cm Zuleika Crocker [facility] Internal Medicine Work Phone: 08-15-2009 15:33-0500 Height 160.02 cm Zuleika Crocker [facility] Internal Medicine Work Phone: 08-15-2009 15:33-0500 Pulse (Heart Rate) 100 /min Zuleika Crocker [facility] Internal Medicine Work Phone: Comment on above: Pattern: Regular 08-15-2009 15:33-0500 Respiratory Rate 16 /min Zuleika Crocker [facility] Internal Medicine Work Phone: Comment on above: Pattern: Unlabored 08-15-2009 15:33-0500 Weight 78.47 kg Sushma Mueller [facility] Internal Medicine Work Phone: 06-25-2009 13:57-0400 Body Temperature 99.7 [degF] Nika Ricketts [facility] Internal Medicine Work Phone: Comment on above: Method: Undefined 06-25-2009 13:57-0400 Body weight 0 kg Nika Ricketts [facility] Internal Medicine Work Phone: 06-25-2009 13:57-0400 BP Diastolic 74 mm[Hg] Nika Ricketts [facility] Internal Medicine Work Phone: Comment on above: Patient Position: Sitting; Cuff Location : Left Arm; Cuff Size: Standard 06-25-2009 13:57-0400 BP Systolic 126 mm[Hg] Nika Ricketts [facility] Internal Medicine Work Phone: Comment on above: Patient Position: Sitting; Cuff Location : Left Arm; Cuff Size: Standard 06-25-2009 13:57-0400 Head Circumference 0 cm Sushma Mueller [facility] Internal Medicine Work Phone: 06-25-2009 13:57-0400 Head Occipital-frontal circumference 0 cm Nika Ricketts [facility] Internal Medicine Work Phone: 06-25-2009 13:57-0400 Height 0 cm Nika Ricketts [facility] Internal Medicine Work Phone: 06-25-2009 13:57-0400 Pulse (Heart Rate) 84 /min [facility] Work Phone: Comment on above: Pattern: Regular 06-25-2009 13:57-0400 Respiratory Rate 18 /min Nika Gloverjasper [facility] Internal Medicine Work Phone: Comment on above: Pattern: Undefined 06-25-2009 13:57-0400 [facility] Work Phone: 04-25-2009 10:18-0400 BMI (Body Mass Index) 30.65 kg/m2 Zuleika Crocker [facility] Internal Medicine Work Phone: 04-25-2009 10:18-0400 Body weight 78.47 kg [facility] Internal Medicine Work Phone: 04-25-2009 10:18-0400 BP Diastolic 78 mm[Hg] [facility] Internal Medicine Work Phone: Comment on above: Patient Position: Supine; Cuff Location: Left Arm; Cuff Size: Standard 04-25-2009 10:18-0400 BP Systolic 136 mm[Hg] Zuleika [facility] Internal Medicine Work Phone: Comment on above: Patient Position: Supine; Cuff Location: Left Arm; Cuff Size: Standard 04-25-2009 10:18-0400 BSA (Body Surface Area) 1.82 m2 [facility] Internal Medicine Work Phone: 04-25-2009 10:18-0400 Head Circumference 0 cm [facility] Internal Medicine Work Phone: 04-25-2009 10:18-0400 Head Occipital-frontal circumference 0 cm Zuleika [facility] Internal Medicine Work Phone: 04-25-2009 10:18-0400 Height 160.02 cm [facility] Internal Medicine Work Phone: 04-25-2009 10:18-0400 Pulse (Heart Rate) 72 /min [facility] Internal Medicine Work Phone: Comment on above: Pattern: Regular 04-25-2009 10:18-0400 Respiratory Rate 16 /min Zuleika Crocker [facility] Internal Medicine Work Phone: Comment on above: Pattern: Unlabored 04-25-2009 10:18-0400 Weight 78.47 kg Sushma Mueller [facility] Internal Medicine Work Phone: 01-24-2009 14:33-0400 Body Temperature 98.3 [degF] Nika Gloverjasper [facility] Internal Medicine Work Phone: Comment on above: Method: Undefined 01-24-2009 14:33-0400 Body weight 79.83 kg Nika Ricketts [facility] Internal Medicine Work Phone: 01-24-2009 14:33-0400 BP Diastolic 52 mm[Hg] Nika Liliam [facility] Internal Medicine Work Phone: Comment on above: Patient Position: Sitting; Cuff Location : Right Arm; Cuff Size: Standard 01-24-2009 14:33-0400 BP Systolic 104 mm[Hg] Nika Liliam [facility] Internal Medicine Work Phone: Comment on above: Patient Position: Sitting; Cuff Location : Right Arm; Cuff Size: Standard 01-24-2009 14:33-0400 Head Circumference 0 cm Sushma Mueller [facility] Internal Medicine Work Phone: 01-24-2009 14:33-0400 Head Occipital-frontal circumference 0 cm Nika Millslaila [facility] Internal Medicine Work Phone: 01-24-2009 14:33-0400 Height 0 cm Nika Liliam [facility] Internal Medicine Work Phone: 01-24-2009 14:33-0400 Pulse (Heart Rate) 82 /min [facility] Internal [facility] Work Phone: Comment on above: Pattern: Regular 01-24-2009 14:33-0400 Respiratory Rate 18 /min Nika Millslaila [facility] Internal Medicine Work Phone: Comment on above: Pattern: Undefined 01-24-2009 14:33-0400 Weight 79.83 kg Sushma Mueller [facility] Internal Medicine Work Phone: 12-12-2008 13:20-0500 Body Temperature 98 [degF] Nika Ricketts [facility] Internal Medicine Work Phone: Comment on above: Method: Undefined 12-12-2008 13:20-0500 Body weight 0 kg Nika Ricketts [facility] Internal Medicine Work Phone: 12-12-2008 13:20-0500 BP Diastolic 74 mm[Hg] Nika Ricketts [facility] Internal Medicine Work Phone: Comment on above: Patient Position: Sitting; Cuff Location : Left Arm; Cuff Size: Large 12-12-2008 13:20-0500 BP Systolic 118 mm[Hg] Nika Ricketts [facility] Internal Medicine Work Phone: Comment on above: Patient Position: Sitting; Cuff Location : Left Arm; Cuff Size: Large 12-12-2008 13:20-0500 Head Circumference 0 cm Sushma Mueller [facility] Internal Medicine Work Phone: 12-12-2008 13:20-0500 Head Occipital-frontal circumference 0 cm Nika Ricketts [facility] Internal Medicine Work Phone: 12-12-2008 13:20-0500 Height 0 cm Nika Ricketts [facility] Internal Medicine Work Phone: 12-12-2008 13:20-0500 Pulse (Heart Rate) 84 /min Nika Ricketts [facility] Internal Medicine Work Phone: Comment on above: Pattern: Regular 12-12-2008 13:20-0500 Respiratory Rate 16 /min Nika Ricketts [facility] Internal Medicine Work Phone: Comment on above: Pattern: Undefined 12-12-2008 13:20-0500 Weight 0 kg Sushma Mueller [facility] Internal Medicine Work Phone: 08-11-2008 11:24-0400 Body Temperature 99 [degF] Danae Azevedo [facility] Internal Medicine Work Phone: Comment on above: Method: Oral 08-11-2008 11:24-0400 Body weight 0 kg Danae Azevedo [facility] Internal Medicine Work Phone: 08-11-2008 11:24-0400 BP Diastolic 90 mm[Hg] [facility] Work Phone: Comment on above: Patient Position: Sitting; Cuff Location : Left Arm; Cuff Size: Large 08-11-2008 11:24-0400 BP Systolic 144 mm[Hg] [facility] Medicine Work Phone: Comment on above: Patient Position: Sitting; Cuff Location : Left Arm; Cuff Size: Large 08-11-2008 11:24-0400 Head [facility] Work [facility]: 08-11-2008 11:24-0400 Head Occipital-frontal [facility] 0 [facility] [facility] Work Phone: 08-11-2008 11:24-0400 Height 0 cm [facility] Work Phone: 08-11-2008 11:24-0400 Pulse (Heart Rate) 60 /min [facility] Work Phone: Comment on above: Pattern: Regular 08-11-2008 11:24-0400 Respiratory Rate 18 /min [facility] Work Phone: Comment on above: Pattern: Unlabored 08-11-2008 11:24-0400 Weight 0 [facility] Work Phone: 12-30-2007 08:01-0400 BMI (Body Mass Index) 33.02 kg/m2 Darling Nur [facility] Work Phone: 12-30-2007 08:010400 Body Temperature 99.3 [degF] Darling Nur [facility] Work Phone: Comment on above: Method: Oral 12-30-2007 08:01-0400 Body weight 82.56 kg Darling Nur [facility] Work Phone: 12-30-2007 08:01-0400 BP Diastolic 70 mm[Hg] Darling Nur [facility] Work Phone: Comment on above: Patient Position: Sitting; Cuff Location : Left Arm; Cuff Size: Standard 12-30-2007 08:01-0400 BP Systolic 132 mm[Hg] Darling Nur LPN [facility] Internal Medicine Work Phone: Comment on above: Patient Position: Sitting; Cuff Location : Left Arm; Cuff Size: Standard 12-30-2007 08:01-0400 BSA (Body Surface Area) 1.84 m2 Darling Nur LPN [facility] Internal Medicine Work Phone: 12-30-2007 08:01-0400 Head Circumference 0 cm Sushma [facility] Work Phone: 12-30-2007 08:01-0400 Head Occipital-frontal circumference 0 cm Darling Nur [facility] Work Phone: 12-30-2007 08:01-0400 Height 158.12 cm Darling Nur [facility] Work Phone: 12-30-2007 08:01-0400 Pulse (Heart Rate) 82 /min Darling Nur [facility] Work Phone: Comment on above: Pattern: Regular 12-30-2007 08:01-0400 Respiratory Rate 17 /min Darling Nur [facility] Work Phone: Comment on above: Pattern: Unlabored 12-30-2007 08:01-0400 [facility] 82.56 [facility] Work Phone: 12-21-2007 15:26-0400 BMI (Body Mass Index) 33.02 kg/m2 Nika Ricketts [facility] Internal Medicine Work Phone: 12-21-2007 15:26-0400 Body Temperature 97.8 [degF] Nika Ricketts [facility] Medicine Work Phone: Comment on above: Method: Undefined 12-21-2007 15:26-0400 Body weight 82.56 kg Nika Ricketts [facility] Work Phone: 12-21-2007 15:26-0400 BP Diastolic 64 mm[Hg] Nika Ricketts [facility] Medicine Work Phone: Comment on above: Patient Position: Sitting; Cuff Location : Right Arm; Cuff Size: Standard 12-21-2007 15:26-0400 BP Systolic 120 mm[Hg] Nika Liliam [facility] Medicine Work Phone: Comment on above: Patient Position: Sitting; Cuff Location : Right Arm; Cuff Size: Standard 12-21-2007 15:26-0400 BSA (Body Surface Area) 1.84 m2 Nika Liliam [facility] Internal Medicine Work Phone: 12-21-2007 15:26-0400 Head Circumference 0 cm [facility] Medicine Work Phone: 12-21-2007 15:26-0400 Head Occipital-frontal circumference 0 cm Nika Liliam [facility] Work Phone: 12-21-2007 15:26-0400 Height 158.12 cm Nika Liliam [facility] Work Phone: 12-21-2007 15:26-0400 Pulse (Heart Rate) 76 /min Nika Liliam [facility] Internal Medicine Work Phone: Comment on above: Pattern: Regular 12-21-2007 15:26-0400 Respiratory Rate 16 /min Nika Liliam [facility] Medicine Work Phone: Comment on above: Pattern: Undefined 12-21-2007 15:26-0400 Weight 82.56 kg [facility] Medicine Work Phone: 12-06-2007 16:12-0500 Body Temperature 99.1 [degF] Nika Liliam [facility] Medicine Work Phone: Comment on above: Method: Oral 12-06-2007 16:12-0500 Body weight 0 kg Nika Ricketts [facility] Medicine Work Phone: 12-06-2007 16:12-0500 BP Diastolic 70 mm[Hg] Nika Ricketts [facility] Medicine Work Phone: Comment on above: Patient Position: Sitting; Cuff Location : Right Arm; Cuff Size: Standard 12-06-2007 16:12-0500 BP Systolic 140 mm[Hg] Nika Gloverner [facility] Internal Medicine Work Phone: Comment on above: Patient Position: Sitting; Cuff Location : Right Arm; Cuff Size: Standard 12-06-2007 16:12-0500 Head Circumference 0 [facility] Work Phone: 12-06-2007 16:12-0500 Head Occipital-frontal circumference 0 cm Nika Liliam [facility] Medicine Work Phone: 12-06-2007 16:12-0500 Height 0 cm Nika Liliam [facility] Work Phone: 12-06-2007 16:12-0500 Pulse (Heart Rate) 88 /min Nika Ricketts [facility] Internal Medicine Work Phone: Comment on above: Pattern: Regular 12-06-2007 16:12-0500 Respiratory Rate 16 /min Nika Liliam [facility] Medicine Work Phone: Comment on above: Pattern: Unlabored 12-06-2007 16:12-0500 [facility] Work Phone: 09-07-2007 15:58-0500 BMI (Body Mass Index) 32.35 kg/m2 Darling Nur IVETTE [facility] Medicine Work Phone: 09-07-2007 15:58-0500 Body Temperature 98.4 [degF] Darling Nur IVETTE [facility] Work Phone: Comment on above: Method: Oral 09-07-2007 15:58-0500 Body weight 80.88 kg Darling Nur IVETTE [facility] Work Phone: 09-07-2007 15:58-0500 BP Diastolic 70 mm[Hg] Darling Nur IVETTE [facility] Work Phone: Comment on above: Patient Position: Sitting; Cuff Location : Left Arm; Cuff Size: Standard 09-07-2007 15:58-0500 BP Systolic 128 mm[Hg] Darling Nur IVETTE [facility] Work Phone: Comment on above: Patient Position: Sitting; Cuff Location : Left Arm; Cuff Size: Standard 09-07-2007 15:58-0500 BSA (Body Surface Area) 1.83 m2 Darling Nur LPN [facility] Work Phone: 09-07-2007 15:58-0500 Head Circumference 0 cm Sushma Mueller [facility] Work Phone: 09-07-2007 15:58-0500 Head Occipital-frontal circumference 0 cm Darling Nur LPN [facility] Work Phone: 09-07-2007 15:58-0500 Height 158.12 cm Darling Nur LPN [facility] Work Phone: 09-07-2007 15:58-0500 Pulse (Heart Rate) 74 /min Darling Nur LPN [facility] Work Phone: Comment on above: Pattern: Regular 09-07-2007 15:58-0500 Respiratory Rate 16 /min Darling Nur LPN [facility] Work Phone: Comment on above: Pattern: Unlabored 09-07-2007 15:58-0500 Weight 80.88 kg Sushma Mueller [facility] Work Phone: 08-30-2007 14:51-0500 BMI (Body Mass Index) 32.35 kg/m2 Darling Nur LPN [facility] Work Phone: 08-30-2007 14:51-0500 Body Temperature 98.4 [degF] Darling Nur LPN [facility] Work Phone: Comment on above: Method: Oral 08-30-2007 14:51-0500 Body weight 80.88 kg Darling Nur LPN [facility] Work Phone: 08-30-2007 14:51-0500 BP Diastolic 68 mm[Hg] Darling Nur LPN [facility] Work Phone: Comment on above: Patient Position: Sitting; Cuff Location : Left Arm; Cuff Size: Standard 08-30-2007 14:51-0500 BP Systolic 130 mm[Hg] Darling Nur LPN [facility] Work Phone: Comment on above: Patient Position: Sitting; Cuff Location : Left Arm; Cuff Size: Standard 08-30-2007 14:51-0500 BSA (Body Surface Area) 1.83 m2 Darling Nur LPN [facility] Work Phone: 08-30-2007 14:51-0500 Head Circumference 0 [facility] Work Phone: 08-30-2007 14:51-0500 Head Occipital-frontal circumference 0 cm [facility] Work Phone: 08-30-2007 14:51-0500 Height 158.12 cm Darling Nur [facility] Work Phone: 08-30-2007 14:51-0500 Pulse (Heart Rate) 82 /min Darling Nur [facility] Work Phone: Comment on above: Pattern: Regular 08-30-2007 14:51-0500 Respiratory Rate 17 /min [facility] Work Phone: Comment on above: Pattern: Unlabored 08-30-2007 14:51-0500 Weight 80.88 kg Sushma Hayssavanna [facility] Internal Medicine Work Phone: 07-05-2007 16:07-0400 BMI (Body Mass Index) 32.35 kg/m2 Nika Ricketts [facility] Internal Medicine Work Phone: 07-05-2007 16:07-0400 Body Temperature 97.9 [degF] Nika Ricketts [facility] Work Phone: Comment on above: Method: Oral 07-05-2007 16:07-0400 Body weight 80.88 kg Nika Ricketts [facility] Work Phone: 07-05-2007 16:07-0400 BP Diastolic 66 mm[Hg] Nika Ricketts [facility] Work Phone: Comment on above: Patient Position: Sitting; Cuff Location : Right Arm; Cuff Size: Standard 07-05-2007 16:07-0400 BP Systolic 134 mm[Hg] Nika Ricketts [facility] Work Phone: Comment on above: Patient Position: Sitting; Cuff Location : Right Arm; Cuff Size: Standard 07-05-2007 16:07-0400 BSA (Body Surface Area) 1.83 m2 Nika Ricketts [facility] Work Phone: 07-05-2007 16:07-0400 Head Circumference 0 cm Sushma Mueller [facility] Work Phone: 07-05-2007 16:07-0400 Head Occipital-frontal circumference 0 cm Nika Millslaila [facility] Work Phone: 07-05-2007 16:07-0400 Height 158.12 cm Nika Millslaila [facility] Work Phone: 07-05-2007 16:07-0400 Pulse (Heart Rate) 84 /min Nika Ricketts [facility] Internal Medicine Work Phone: Comment on above: Pattern: Regular 07-05-2007 16:07-0400 Respiratory Rate 16 /min Nika Millslaila [facility] Work Phone: Comment on above: Pattern: Unlabored 07-05-2007 16:07-0400 Weight 80.88 kg Sushma Mueller [facility] Work Phone: 02-10-2007 10:25-0400 Body Temperature 98 [degF] Nika Gloverjasper [facility] Work Phone: Comment on above: Method: Oral 02-10-2007 10:25-0400 Body weight 76.2 kg Nika Millslaila [facility] Work Phone: 02-10-2007 10:25-0400 BP Diastolic 82 mm[Hg] Nika Millslaila [facility] Work Phone: Comment on above: Patient Position: Sitting; Cuff Location : Left Arm; Cuff Size: Large 02-10-2007 10:25-0400 BP Systolic 144 mm[Hg] Nika Millslaila [facility] Work Phone: Comment on above: Patient Position: Sitting; Cuff Location : Left Arm; Cuff Size: Large 02-10-2007 10:25-0400 Head Circumference 0 cm [facility] Work Phone: 02-10-2007 10:25-0400 Head Occipital-frontal circumference 0 cm Nika Gloverjasper [facility] Work Phone: 02-10-2007 10:25-040 Height 0 cm Nika Ricketts [facility] Work Phone: 02-10-2007 10:25-0400 Pulse (Heart Rate) 72 /min Nika Ricketts [facility] Internal Medicine Work Phone: Comment on above: Pattern: Regular 02-10-2007 10:25-0400 Respiratory Rate 16 /min Nika Gloverjasper [facility] Medicine Work Phone: Comment on above: Pattern: Unlabored 02-10-2007 10:25-0400 Weight 76.2 kg [facility] Medicine Work Phone: 12-22-2006 15:30-0400 Body Temperature 97.7 [degF] Nika Ricketts [facility] Work Phone: Comment on above: Method: Oral 12-22-2006 15:30-0400 Body weight 75.84 kg Nika Gloverjasper [facility] Work Phone: 12-22-2006 15:30-0400 BP Diastolic 82 mm[Hg] Nika Ricketts [facility] Work Phone: Comment on above: Patient Position: Sitting; Cuff Location : Left Arm; Cuff Size: Standard 12-22-2006 15:30-0400 BP Systolic 136 mm[Hg] Nika Ricketts [facility] Work Phone: Comment on above: Patient Position: Sitting; Cuff Location : Left Arm; Cuff Size: Standard 12-22-2006 15:30-0400 Head Circumference 0 cm [facility] Medicine Work Phone: 12-22-2006 15:30-0400 Head Occipital-frontal circumference 0 cm Nika Ricketts [facility] Work Phone: 12-22-2006 15:30-0400 Height 0 cm Nika Ricketts [facility] Work Phone: 12-22-2006 15:30-0400 Pulse (Heart Rate) 72 /min [facility] Work Phone: Comment on above: Pattern: Regular 12-22-2006 15:30-0400 Respiratory Rate 16 /min Nika Ricketts [facility] Work Phone: Comment on above: Pattern: Unlabored 12-22-2006 15:30-0400 Weight 75.84 kg Sushma Mueller [facility] Work Phone: 08-25-2006 15:32-0500 Body Temperature 98 [degF] MAKENZIE Webb [facility] Work Phone: Comment on above: Method: Oral 08-25-2006 15:32-0500 Body weight 75.32 kg MAKENZIE Webb [facility] Work Phone: 08-25-2006 15:32-0500 BP Diastolic 82 mm[Hg] MAKENZIE Webb [facility] Work Phone: Comment on above: Patient Position: Sitting; Cuff Location : Left Arm; Cuff Size: Standard 08-25-2006 15:32-0500 BP Systolic 124 mm[Hg] MAKENZIE Webb [facility] Work Phone: Comment on above: Patient Position: Sitting; Cuff Location : Left Arm; Cuff Size: Standard 08-25-2006 15:32-0500 Head Circumference 0 cm Sushma Mueller [facility] Work Phone: 08-25-2006 15:32-0500 Head Occipital-frontal circumference 0 cm MAKENZIE Webb [facility] Work Phone: 08-25-2006 15:32-0500 Height 0 cm MAKENZIE Webb [facility] Work Phone: 08-25-2006 15:32-0500 Pulse (Heart Rate) 66 /min MAKENZIE Webb [facility] Work Phone: Comment on above: Pattern: Regular 08-25-2006 15:32-0500 Respiratory Rate 18 /min MAKENZIE Webb IV[facility] Work Phone: Comment on above: Pattern: Unlabored 08-25-2006 15:32-0500 Weight 75.32 kg Sushma Mueller [facility] Work Phone: Encounters Encounter Date Encounter Type Care Provider Facility Start: 02-09-2024 End: 02-09-2024 ambulatory MARICRUZ ARMSTRONG Facility:[facility] Start: 02-09-2024 End: 02-09-2024 Patient encounter procedure Maricruz Armstrong DO Work Phone: Vascular Surgery Comment on above: Bilateral carotid ar elton stenosis (Primary Dx) Start: 12-23-2023 Telephone encounter Lindsey Shultz MD Work Phone: [facility] Comment on above: Appointment (Appoint ment) Start: 12-22-2023 End: 12-22-2023 ambulatory CINDY MCPHERSON Facility:[facility] Start: 08-21-2023 End: 08-21-[address] DAMIAN HARTMANN MD Facility: Start: 08-21-2023 End: 08-21-[address] DAMIAN HARTMANN MD [facility] Start: 04-30-2023 End: 04-30-2023 Sushma Mueller Work Phone: [facility] Start: 02-13-2023 ambulatory Sushma Mueller [facility] Start: 02-13-2023 End: 02-23-2023 Office outpatient visit 15 minutes Sushma Mueller Work Phone: [facility] Start: 02-13-2023 Sushma Mueller Work Phone: [facility] Start: 12-22-2022 Telephone encounter Viola Walsh tthews [employer]CIAL [employer] Work Phone: [facility] Comment on above: Results Start: 12-17-2022 Telephone encounter Lindsey Shultz MD Work Phone: [facility] Comment on above: Patient Question (Dean Smith) Start: 08-29-2022 End: 09-12-2022 Office outpatient visit 15 minutes Sushma Ciesa Work Phone: [facility] Start: 08-29-2022 Sushma Ciesa Work Phone: [facility] Start: 04-30-2022 End: 04-30-2022 Office outpatient visit 10 minutes Sushma Ciesa Work Phone: [facility] Start: 04-28-2022 End: 04-28-2022 Office outpatient visit 15 minutes Sushma Ciesa Work Phone: [facility] Start: 01-09-2022 End: 01-09-2022 Patient encounter procedure Maikel Avila MD Work Phone: [facility] Comment on above: Carotid stenosis, as ymptomatic, bilateral (Primary Dx) Start: 12-02-2021 End: 12-02-2021 Office outpatient visit 25 minutes Sushma Ciesa Work Phone: [facility] Start: 12-02-2021 Sushma Ciesa [employer] FIN[employer]CIAL SERVICES AGENT Work Phone: [facility] Start: 10-08-2021 End: 10-09-2021 Office outpatient visit 10 minutes Sushma Ciesa [employer] FIN[employer]CIAL SERVICES [employer]ENT Work Phone: [facility] Start: 08-26-2021 End: 08-26-2021 Sushma Ciesa [employer] FINANCIAL SERVICES AGENT Work Phone: [facility] Start: 08-19-2021 End: 08-19-2021 Sushma Ciesa [employer] FIN[employer]CIAL SERVICES AGENT Work Phone: [facility] Start: 08-16-2021 End: 08-16-2021 Office outpatient visit 15 minutes Sushma Ciesa [employer] FIN[employer]CIAL SERVICES AGENT Work Phone: [facility] Start: 08-13-2021 End: 08-13-2021 Office outpatient visit 15 minutes Sushma Ciesa [employer] FIN[employer]CIAL SERVICES [employer]ENT Work Phone: [facility] Start: 04-29-2021 End: 04-29-2021 Office outpatient visit 25 minutes Sushma Mueller [employer]CIAL [employer] Work Phone: [facility] Start: 04-17-2021 End: 04-17-2021 Sushma Mueller [employer]CIAL SERVICES [employer] Work Phone: [facility] Start: 10-30-2020 End: 10-30-2020 Office outpatient visit 25 minutes Sushma Mueller [facility] Start: 09-14-2020 End: 09-14-2020 Office outpatient visit 15 minutes Sushma Mueller [facility] Start: 04-25-2020 End: 04-25-2020 Office outpatient visit 25 minutes Sushma Mueller [facility] Start: 01-16-2020 End: 01-16-2020 Office outpatient visit 25 minutes Sushma Mueller [facility] Start: 01-11-2020 End: 01-11-2020 Annotation/Addendum Sushma Mueller [facility] Start: 01-11-2020 End: 01-11-2020 Sushma Mueller [employer]CIAL SERVICES [employer] Work Phone: [facility] Start: 11-18-2019 End: 11-18-2019 Annotation/Addendum Sushma Mueller [facility] Start: 11-18-2019 End: 11-18-2019 Sushma Mueller [employer] FIN[employer]CIAL SERVICES AGENT Work Phone: [facility] Start: 11-09-2019 End: 11-09-2019 Annotation/Addendum Sushma Mueller [facility] Start: 11-09-2019 End: 11-09-2019 Sushma Mueller [employer] FIN[employer]CIAL SERVICES [employer] Work Phone: [facility] Start: 10-14-2019 End: 10-14-2019 Office outpatient visit 25 minutes Sushma Mueller [facility] Start: 08-22-2019 End: 08-22-2019 Annotation/Addendum Sushma Mueller [facility] Start: 08-22-2019 End: 08-22-2019 Sushma Mueller [employer]CIAL SERVICES [employer] Work Phone: [facility] Start: 08-15-2019 End: 08-15-2019 Office outpatient visit 15 minutes Sushma Mueller [facility] Start: 08-08-2019 End: 08-09-2019 Annotation/Addendum Sushma Mueller [facility] Start: 08-08-2019 Review Sushma Motley [facility] Start: 08-08-2019 End: 08-09-2019 Sushma Mueller [employer]CIAL SERVICES [employer] Work Phone: [facility] Start: 07-14-2019 Review Sushma Motley [facility] Start: 07-14-2019 End: 07-14-2019 Annotation/Addendum Sushma Mueller [facility] Start: 07-14-2019 End: 07-14-2019 Sushma Mueller [employer] FIN[employer]CIAL SERVICES [employer] Work Phone: [facility] Start: 07-13-2019 End: 07-13-2019 Office outpatient visit 25 minutes Sushma Mueller [facility] Start: 04-25-2019 End: 04-25-2019 Annotation/Addendum Sushma Mueller [facility] Start: 04-25-2019 End: 04-25-2019 Sushma Muellre [employer] FIN[employer]CIAL SERVICES AGENT Work Phone: [facility] Start: 01-25-2019 End: 01-25-2019 Office outpatient visit 15 minutes Sushma Mueller [facility] Start: 06-17-2018 End: 06-17-2018 Office outpatient visit 5 minutes Sushma Mueller [facility] Start: 04-21-2018 End: 04-21-2018 Annotation/Addendum Sushma Mueller [facility] Start: 04-21-2018 End: 04-21-2018 Sushma Mueller [employer]CIAL SERVICES [employer] Work Phone: [facility] Start: 08-21-2017 End: 08-21-2017 Office outpatient visit 15 minutes Sushma Mueller [facility] Start: 07-27-2017 End: 07-27-2017 Office outpatient visit 25 minutes Sushma Mueller [facility] Start: 06-26-2017 End: 06-26-2017 Office outpatient visit 5 minutes Sushma Mueller [facility] Start: 04-27-2017 End: 04-27-2017 Phone Encounter Sushma Mueller [facility] Start: 04-27-2017 End: 04-27-2017 Sushma Mueller [employer]CIAL SERVICES [employer] Work Phone: [facility] Start: 04-27-2017 End: 04-27-2017 Annotation/Addendum Sushma Mueller [facility] Start: 04-27-2017 End: 04-27-2017 Sushma Mueller [employer]CIAL SERVICES [employer] Work Phone: [facility] Start: 11-13-2016 End: 11-13-2016 Patient encounter procedure Sushma Mueller [facility] Start: 11-13-2016 End: 11-13-2016 Sushma Mueller [employer] Work Phone: [facility] Start: 10-20-2016 End: 10-20-2016 Office outpatient visit 15 minutes Sushma Mueller [facility] Start: 08-07-2016 End: 08-07-2016 Patient encounter procedure Sushma Mueller [facility] Start: 08-07-2016 End: 08-07-2016 Sushma Mueller [employer]CIAL SERVICES [employer] Work Phone: [facility] Start: 07-09-2016 End: 07-14-2016 Nursing evaluation of patient and report Sushma Mueller [facility] Start: 07-09-2016 End: 07-14-2016 Sushma Mueller [employer]CIAL SERVICES [employer] Work Phone: [facility] Start: 05-13-2016 End: 05-13-2016 Patient encounter procedure Sushma Mueller [facility] Start: 05-13-2016 End: 05-13-2016 Patient encounter status Sushma Mueller Work Phone: [facility] Start: 05-13-2016 End: 05-13-2016 Sushma Mueller [employer] FIN[employer]CIAL SERVICES [employer] Work Phone: [facility] Start: 04-07-2016 End: 04-07-2016 Phone Encounter Sushma Mueller [facility] Start: 04-07-2016 End: 04-07-2016 Sushma Mueller [employer] FIN[employer]CIAL SERVICES [employer]ENT Work Phone: [facility] Start: 03-05-2016 End: 03-05-2016 Office outpatient visit 25 minutes Sushma Valdessavanna [facility] Start: 12-03-2015 End: 12-03-2015 Office outpatient visit 15 minutes Sushma Mueller [facility] Start: 05-14-2015 End: 05-14-2015 Office outpatient visit 25 minutes Sushma Liseddiesavanna [facility] Start: 04-04-2015 End: 04-05-2015 Office outpatient visit 25 minutes Sushma Valdessavanna [facility] Start: 03-22-2014 End: 03-22-2014 Phone Encounter Sushma Mueller [facility] Start: 03-22-2014 End: 03-22-2014 Sushma Mueller [employer]CIAL SERVICES [employer] Work Phone: [facility] Start: 04-25-2013 End: 04-25-2013 Patient encounter procedure Sushma Mueller [facility] Start: 04-25-2013 End: 04-25-2013 Sushma Mueller [employer] FIN[employer]CIAL SERVICES AGENT Work Phone: [facility] Start: 04-18-2013 End: 04-18-2013 Patient encounter procedure Sushma Mueller [facility] Start: 04-18-2013 End: 04-18-2013 Preprocedural examination done Sushma Mueller Work Phone: [facility] Start: 04-18-2013 End: 04-18-2013 Sushma Mueller [employer] Work Phone: [facility] Start: 03-22-2013 End: 03-22-2013 Patient encounter procedure Sushma Mueller [facility] Start: 03-22-2013 End: 03-22-2013 Sushma Mueller [employer] Work Phone: [facility] Start: 01-17-2013 End: 01-17-2013 Patient encounter procedure Sushma Mueller [facility] Start: 01-17-2013 End: 01-17-2013 Sushma Mueller [employer] Work Phone: [facility] Start: 01-12-2013 End: 01-12-2013 Lab Order [facility]ushma Mueller [facility] Start: 01-12-2013 End: 01-12-2013 Sushma Mueller [employer] Work Phone: [facility] Start: 01-04-2013 End: 01-04-2013 Annotation/Addendum Sushma Mueller [facility] Start: 01-04-2013 End: 01-04-2013 Sushma Mueller [employer] Work Phone: [facility] Start: 01-04-2013 End: 01-04-2013 Phone Encounter Sushma Mueller [facility] Start: 01-04-2013 End: 01-04-2013 Sushma Mueller [employer] Work Phone: [facility] Start: 12-29-2012 End: 12-29-2012 Phone Encounter Sushma Mueller [facility] Start: 12-29-2012 End: 12-29-2012 Sushma Mueller [employer] Work Phone: [facility] Start: 12-27-2012 End: 12-27-2012 Phone Encounter Sushma Mueller [facility] Start: 12-27-2012 End: 12-27-2012 Sushma Mueller [employer] Work Phone: [facility] Start: 12-24-2012 End: 12-26-2012 Patient encounter procedure Sushma Mueller [facility] Start: 12-24-2012 End: 12-26-2012 Preprocedural examination done Sushma Mueller Work Phone: [facility] Start: 12-24-2012 End: 12-26-2012 Sushma Mueller [employer] Work Phone: [facility] Start: 09-27-2012 End: 09-27-2012 Patient encounter procedure Sushma Mueller [facility] Start: 09-27-2012 End: 09-27-2012 Sushma Mueller [employer] Work Phone: [facility] Start: 09-16-2012 End: 09-16-2012 Phone Encounter Sushma Mueller [facility] Start: 09-16-2012 End: 09-16-2012 Sushma Mueller [employer] Work Phone: [facility] Start: 09-08-2012 End: 09-09-2012 Patient encounter procedure Sushma Mueller [facility] Start: 09-08-2012 End: 09-09-2012 Sushma Mueller [employer] Work Phone: [facility] Start: 02-16-2012 End: 02-16-2012 Patient encounter procedure Sushma Mueller [facility] Start: 02-16-2012 End: 02-16-2012 Sushma Mueller [employer] Work Phone: [facility] Start: 11-05-2011 End: 11-06-2011 Patient encounter procedure Sushma Mueller [facility] Start: 11-05-2011 End: 11-06-2011 Sushma Mueller [employer] Work Phone: [facility] Start: 10-17-2011 End: 10-17-2011 Office outpatient visit 25 minutes Sushma Mueller [facility] Start: 08-04-2011 End: 08-04-2011 Patient encounter procedure Sushma Mueller [facility] Start: 08-04-2011 End: 08-04-2011 Sushma Mueller [employer] Work Phone: [facility] Start: 04-07-2011 End: 04-07-2011 Patient encounter procedure Sushma Mueller [facility] Start: 04-07-2011 End: 04-07-2011 Sushma Mueller [employer] Work Phone: [facility] Start: 10-08-2010 End: 10-08-2010 Patient encounter procedure Sushma Mueller [facility] Start: 10-08-2010 End: 10-08-2010 Sushma Mueller [employer] Work Phone: [facility] Start: 06-24-2010 End: 06-24-2010 Patient encounter procedure Sushma Mueller [facility] Start: 06-24-2010 End: 06-24-2010 Sushma Mueller [employer] Work Phone: [facility] Start: 04-23-2010 End: 04-23-2010 Patient encounter procedure Sushma Mueller [facility] Start: 04-23-2010 End: 04-23-2010 Sushma Mueller [employer] Work Phone: [facility] Start: 04-09-2010 End: 04-09-2010 Patient encounter procedure Sushma Mueller [facility] Start: 04-09-2010 End: 04-09-2010 Sushma Mueller [employer] Work Phone: [facility] Start: 04-09-2010 End: 04-09-2010 Patient encounter procedure Sushma Mueller [facility] Start: 04-09-2010 End: 04-09-2010 Sushma Mueller [employer] Work Phone: [facility] Start: 03-06-2010 End: 03-06-2010 Patient encounter procedure Sushma Mueller [facility] Start: 03-06-2010 End: 03-06-2010 Sushma Mueller [employer] Work Phone: [facility] Start: 01-16-2010 End: 01-16-2010 Office outpatient visit 15 minutes Sushma Mueller [facility] Start: 09-27-2009 End: 09-27-2009 Office outpatient new 30 minutes Sushma Mueller [facility] Start: 08-15-2009 End: 08-15-2009 Office outpatient visit 15 minutes Sushma Mueller [facility] Start: 06-25-2009 End: 06-29-2009 Patient encounter procedure Sushma Mueller [facility] Start: 06-25-2009 End: 06-29-2009 Sushma Mueller [employer] Work Phone: [facility] Start: 04-25-2009 End: 04-26-2009 Patient encounter procedure Sushma Mueller [facility] Start: 04-25-2009 End: 04-26-2009 Sushma Mueller [employer] Work Phone: [facility] Start: 01-24-2009 End: 01-24-2009 Patient encounter procedure Sushma Mueller [facility] Start: 01-24-2009 End: 01-24-2009 Sushma Mueller [employer] Work Phone: [facility] Start: 12-29-2008 End: 12-29-2008 Historical Summary [facility]ush[facility] Mueller [facility] Start: 12-29-2008 End: 12-29-2008 Sushma Mueller [employer] Work Phone: [facility] Start: 12-12-2008 End: 12-12-2008 Patient encounter procedure Sushma Mueller [facility] Start: 12-12-2008 End: 12-12-2008 Sushma Mueller [employer] Work Phone: [facility] Start: 11-01-2008 End: 11-01-2008 Historical Summary Sushma Mueller [facility] Start: 11-01-2008 End: 11-01-2008 Sushma Mueller [employer] Work Phone: [facility] Start: 08-11-2008 End: 08-11-2008 Patient encounter procedure Sushma Mueller [facility] Start: 08-11-2008 End: 08-11-2008 Sushma Mueller [employer] Work Phone: [facility] Start: 01-03-2008 End: 01-03-2008 Annotation/Addendum Sushma Mueller [facility] Start: 01-03-2008 End: 01-03-2008 Sushma Mueller [employer] Work Phone: [facility] Start: 12-30-2007 End: 12-30-2007 Office outpatient visit 25 minutes Sushma Mueller [facility] Start: 12-21-2007 End: 12-21-2007 Patient encounter procedure Sushma Mueller [facility] Start: 12-21-2007 End: 12-21-2007 Sushma Mueller [employer] Work Phone: [facility] Start: 12-06-2007 End: 12-06-2007 Patient encounter procedure Sushma Mueller [facility] Start: 12-06-2007 End: 12-06-2007 Sushma Mueller [employer] Work Phone: [facility] Start: 09-07-2007 End: 09-07-2007 Office outpatient visit 15 minutes Sushma Mueller [facility] Start: 08-30-2007 End: 08-30-2007 Office outpatient visit 15 minutes Sushma Mueller [facility] Start: 07-05-2007 End: 07-05-2007 Patient encounter procedure Sushma Mueller [facility] Start: 07-05-2007 End: 07-05-2007 Sushma Mueller [employer] Work Phone: [facility] Start: 02-10-2007 End: 02-10-2007 Patient encounter procedure Sushma Mueller [facility] Start: 02-10-2007 End: 02-10-2007 Sushma Mueller [employer] Work Phone: [facility] Start: 12-22-2006 End: 12-22-2006 Patient encounter procedure Sushma Mueller [facility] Start: 12-22-2006 End: 12-22-2006 Sushma Mueller [employer] Work Phone: [facility] Start: 08-25-2006 End: 08-26-2006 Patient encounter procedure Sushma Mueller [facility] Start: 08-25-2006 End: 08-26-2006 Sushma Mueller [employer] Work Phone: [facility] Start: 08-20-2006 End: 08-20-2006 Historical Summary Sush[facility] Mueller [facility] Start: 08-20-2006 End: 08-20-2006 Sushma Mueller [employer] Work Phone: [facility] Patient encounter status Srikanth Bennett LPN [facility] Work Phone: Patient encounter status [employer] [facility] Work Phone: Patient encounter status Srikanth Mcgrath MEDICAL CODING AUDITOR [facility] Work Phone: Patient encounter status Patsy Garrisonjeny MEDICAL CODING AUDITOR [facility] Work Phone: Patient encounter status Joanie Sam [facility] Work Phone: Patient encounter status Cassandra Myers DO Work Phone: [facility] Work Phone: Patient encounter status Malaika Melanie SC [facility] Work Phone: Patient encounter status Patsy Garrisonjeny MEDICAL CODING AUDITOR [facility] Work Phone: End: 11-13-2016 Preprocedural examination done Patsy Garrisonjeny MEDICAL CODING AUDITOR [facility] Work Phone: Procedures Date Procedure Procedure Detail Performing Clinician Start: 08-21-2023 Colonoscopy and biopsy of colon DR DAMIAN HARTMANN MD Start: 07-06-2023 End: 07-06-2023 Procedure Note: See Note; NOTES: [address], [address] [place] [address] OFFICE VISIT Date of Service: 07/06/23 MR#: [id number] Acct: [id number] Name: CARMEN GARCIA Rep #: [id number] : 1950 Provider: Dr. Edvin holland MD Age/Sex: 73/F Location: [facility] Status: Signed Intake Vital Signs 02/03/23 15:38 07/06/23 13:56 Height 5 ft 3 in 5 ft 3 in Weight: 205 lb 3 oz 200 lb 2 oz BMI 36.3 35.4 BP 138/84 H 128/68 H Blood Pressure Location Rt brachial Lt brachial Position Sitting Sitting Respiration 17 17 Pulse 84 79 Pulse Source Monitor Monitor Temp 98.6 F 98.2 F Temp Source Temporal Temporal Pulse Oximetry (%) 98 98 Oxygen Delivery Method room air room air Intake Visit Reasons: 5 MO FU Chief Complaint: Event Set Up Specialist Required: No Accompanied by: Self Allergies rosuvastatin [From Crestor] Allergy (Severe, Verified 07/06/23 14:02) Unknown ezetimibe [From Zetia] Allergy (Intermediate, Verified 07/06/23 14:02) Myalgia atorvastatin [From Lipitor] Allergy (Unknown, Verified 07/06/23 14:02) Unknown codeine Adverse Reaction (Intermediate, Verified 07/06/23 14:02) Chest pain ropinirole [From Requip] Adverse Reaction (Intermediate, Verified 07/06/23 14:02) Other [facility] Medical History Acute gastroenteritis Anxiety Arthralgia Atypical mole B12 deficiency Back pain, lumbosacral Dysthymic disorder Encounter for screening mammogram for breast cancer Essential tremor Eustachian tube dysfunction Fatigue Fibromyalgia GERD (gastroesophageal reflux disease) Headache Hip pain History of atrial flutter History of dyspnea Hypercholesterolemia Hypertension Hypertensive heart disease without heart failure Hypothyroidism Other and unspecified hyperlipidemia Pain in thoracic spine Parkinsons disease Sessile colonic polyp Sleep apnea Thyromegaly Tremor Vitamin D deficiency Surgical History H/O thyroidectomy History of cholecystectomy History of parathyroidectomy History of partial hysterectomy Family History Mother Breast cancer CVA (cerebral vascular accident) Hypertension Myocardial infarction Epilepsy Father Parkinsons disease Hypertension Skin cancer Other Emotional problems High cholesterol Social History (Updated 10/07/22 @ 13:44 by Martita Alex) Smoking Status: Never smoker second hand exposure: No alcohol intake: current alcohol intake frequency: holidays/special occasions only substance use type: does not use caffeine: Yes what type of physical activity do you participate in: other frequency: 1-2 times per week seatbelt use: sometimes HPI HPI Chief Complaint: Details: Interim History: Carmen returns for follow-up. She has a history of hypertension, hypercholesterolemia, vitamin B12 deficiency, vitamin D deficiency, hypothyroidism (s/p thyroidectomy for goiter), parathyroid nodules (s/p resection of parathyroid glands) and Parkinson's disease. She saw a neurologist in 2019 and was diagnosed with Parkinson's disease at that time. Her parkinsonian symptoms began in 2019 and manifested with a tremor in the hands and right leg. Her tremor in the hands is present at rest and with action. She also had slowing of her gait and a feeling of stiffness in her muscles. Ropinirole was not well tolerated (caused blurred vision). She started carbidopa/levodopa in 2018 and had some reduction of her tremor and improvement of gait however in 2021 she began having increased tremor and further slowing of gait and an increase of carbidopa/levodopa 25/100 to one tablet QID was of benefit for her tremor but was not of added benefit for her gait. She felt that she has continued to shuffle. She has micrographia. She has had some drooling. She remains able to ambulate independently. She denied having speech or swallowing difficulty. She does not have any history of neuroleptic use. She has attended the Delay the Disease physical therapy program but has not attended classes recently. Increasing her dose of carbidopa/levodopa 25/100 to 2 tablets 3 times daily has been of benefit in reducing her tremor however her other parkinsonian symptoms have been unchanged. She has had leg restlessness that primarily occurs at night. She previously took an iron supplement prescribed by a hospice patient care secretary after having a period of rectal bleeding in 2020. Labs checked in 2021 revealed normal iron and ferritin levels and a CBC did not reveal anemia. She has had bilateral thigh muscle tightness pain. She has some chronic intermittent low back pain which is not prominent. She has pain in the hips that she has noted when she is lying on either hip at night. Her back pain and hip pain have diminished. She uses Advil as needed. Her carotid ultrasound from 11/2019 revealed less than 50% stenosis of the right internal carotid artery and 50-69% stenosis of the left internal carotid artery. A repeat carotid ultrasound (December 2022) at the [facility] in [place] revealed no significant change from 12/16/2021; 20-39% stenosis was noted in the internal carotid arteries bilaterally; vertebral flow was antegrade bilaterally. She sees a vascular surgeon, Dr. Avila, for management of her carotid stenosis. She does not have any history of symptomatic cerebrovascular disease. Her head MRI from 2016 showed minimal chronic small vessel ischemic disease. She did not tolerate various lipid-lowering agents. Her lipid panel from 05/2021 was normal. She takes aspirin 81mg daily. Her vitamin D level was elevated in May 2021, and her vitamin D 1.25mg supplement was previously decreased to twice monthly by Dr. Weinstein. Meloxicam was not of benefit for her musculoskeletal pain. Physical Exam: Neuro: The patient is awake and alert and responds appropriately; speech is fluent; a mild right hand tremor is noted when arms are extended; mild right wrist rigidity with distraction is noted; no left wrist rigidity with distraction is noted; gait is slightly slow; decreased arm swing is noted bilaterally Neck: No bruits Heart: Regular rate and rhythm Supplemental Info Brain MRI 07/30/17 IMPRESSION: There are a limited number of small white matter hyperintensities, distributed throughout the deep white matter tracts of the cerebral hemispheres, nonspecific but most commonly seen with with mild chronic white matter ischemic changes. No acute intracranial abnormality or masses. Labs 08/05/17 CBC CMP: unremarkable Lipid Panel: Chol 235(H), LDL 150(H), otherwise unremarkable Folate 41.5 Labs 02/01/18 CMP: BUN/Creatine 9.5(L), Cl 108(H) otherwise unremarkable Vit D: 64 Labs 12/20/18 Lipid panel: unremarkable Lumbar spine x-ray 05/05/19 FINDINGS: Mild generalized osteopenia. Normal lumbar lordosis. There is no substantial scoliosis. There is a normal alignment of the vertebrae. Normal vertebral bodies and endplates. Minimal intervertebral disc space narrowing most marked at L5-S1 with vacuum phenomenon. Diffuse facet sclerosis. Vascular calcification. IMPRESSION: Osteopenia with mild lower lumbar spondylosis. Chest CTA 07/14/19 IMPRESSION: Normal CTA chest examination, without a demonstrated pulmonary embolism or arterial dissection. Labs 08/19/19 CMP: ATS 13(L) otherwise unremarkable TSH 0.59 Vit D 77.6 TXT- Blood Flow Screening 10/28/2019: Interpretation Summary: Mild to moderate disease was found in the carotid artery. RECOMMEND FOLLOW-UP WITH YOUR DOCTOR. Normal aortic ultrasound exam. The ankle/brachial index is normal(1.0 or greater). Carotid Duplex 11/16/19 Interpretation Summary Minimal smooth plaque at the proximal right internal carotid artery with less than 50% stenosis. <50% stenosis right external carotid. Irregular calcific plaque with shadowing at the proximal left internal carotid artery with 50 to 69% stenosis, noted more distally. <50% stenosis left external carotid Patent and antegrade bilateral vertebrals Labs 04/20/2020: CBC: Normal CMP: Alk phos 121 (H) Lipid Panel: cholesterol 209 (H) Vitamin B12: 784 (normal) Vitamin D: 86.7 (normal) TSH: Normal Labs (10/22/2020): BMP: Unremarkable TSH: Normal Vitamin D: Sufficient Labs (05/27/2021): CBCD: Unremarkable CMP: Unremarkable Lipid panel: Normal B12: 853 (normal) Vitamin D: 103.4 (H) TSH: Normal CMP, vitamin D, TSH (12/20/2021): EGFR 59 CBC, CMP, TSH (02/24/2023): Unremarkable. Carotid ultrasound (12/16/2022): Compared to prior study of 12/16/2021, no significant change. Right side Common carotid artery: Plaque visualized without evidence of hemodynamically significant stenosis. Internal carotid artery: 20-39% stenosis. Vertebral artery: Patent and antegrade flow noted. Left side Common carotid artery: Plaque visualized without evidence of hemodynamically significant stenosis. Internal carotid artery: 20-39% stenosis. Vertebral artery: Patent and antegrade flow noted. Coding Level of Care Code Off vis,est,level 3 Diagnoses Parkinson's disease G20 Assessment and Plan Assessment and Plan (1) Parkinson's disease: Status: Chronic Medications: Refilled carbidopa-levodopa 25-100 mg 2 tabs PO TID 540 tabs 1RF Discontinued baclofen Discontinued Reason: Discontinued by PCP/other physicians 10 mg PO QHS PRN 30 tabs 5RF muscle spasm/leg restlessness Plan Details Additional Comments: The patient has mild Parkinson's disease.??? She has had slowing of her gait, tremor and rigidity.??? These symptoms have improved with the use of carbidopa/levodopa. A subsequent dose increase of carbidopa/levodopa resulted in further improvement of her tremor though her other parkinsonian symptoms remained unchanged. She has had micrographia and occasional drooling. Per prior discussion, she did not wish to pursue a head MRI for assessment of her parkinsonism. A mild right hand tremor and mild right wrist rigidity with distraction is noted on exam today; her gait is slightly slow and she exhibits decreased arm swing. No significant change in her parkinsonian symptoms have been noted over recent months. She wishes to continue her current therapy. - Carbidopa/levodopa 25/100 2 tablets 3 times daily will be continued. - She had previously participated in the Delay the Disease program for Parkinson's disease and may consider resuming this. She has nighttime restless leg syndrome. This has recently diminished. Her labs from 2021 do not reveal anemia or iron deficiency. Ropinirole was not well-tolerated. Due to concern about side effects she decided not to try baclofen for her leg restlessness. Her leg restlessness is not presently a prominent symptom. - She feels that acetaminophen and czab-jgd-pzpeayr magnesium supplementation have been of some benefit for her sleep and leg restlessness. She has low back pain. She has bilateral hip pain that occurs at night. The symptoms have diminished. Meloxicam was not of benefit. - She uses Advil as needed. - She did not wish to take a prescription medication for the pain symptoms. - If her low back and bilateral hip pain should persist then imaging studies of these regions will be pursued. Her carotid ultrasound from 11/2019 revealed less than 50% stenosis of the right internal carotid artery and 50-69% stenosis of the left internal carotid artery. She sees a vascular surgeon, Dr. Avila, for management of her carotid stenosis. She does not have any history of symptomatic cerebrovascular disease. Her head MRI from 2016 showed minimal chronic small vessel ischemic disease. Her last carotid ultrasound (December 2022) revealed 20-39% stenosis of the internal carotid arteries bilaterally and antegrade bilateral vertebral artery flow. - She did not tolerate various lipid-lowering agents. Her lipid panel from 05/2021 was normal. - She takes aspirin 81mg daily. Her vitamin D level was elevated in May 2021, and her vitamin D supplement was previously decreased to 1.25mg twice monthly by Dr. Weinstein. I will have her return for reassessment in 6 months.??? 07/06/232226 <Electronically signed by Edvin Armijo MD> Date Edvin Armijo MD Cosigner Signature: Date (if applicable) CC: Sushma Mueller Work Phone: Start: 05-15-2023 End: 05-15-2023 Procedure Note: See Note; NOTES: [facility] Imaging Services [address] [place] [address] SCRN MAMM (CAD)W/ROBERTO BILAT MR#: [id number] Acct: [id number] Name: CARMEN GARCIA Rep #: [id number] : 1950 F 73 From: Jorge durham MD PCP: VALENTIN San Status: [facility] Study: SCRN MAMM (CAD)W/ROBERTO BILAT Date of Exam: 02/01 Exam# [id number] Ordering Dr: Cindy Mcpherson MAMMOGRAPHY - BILATERAL SCREENING REASON FOR EXAM: Female, 73 years old. Routine annual screening examination. PERTINENT HISTORY: Mother with breast cancer. Aunts with breast cancer. TECHNIQUE: Digital bilateral breast roberto (3D mammographic acquisition) in the CC and MLO projections. 2-D mediolateral oblique (MLO) and craniocaudad (CC) views of both breasts were obtained. CAD: Full Field Digital Mammography with Computer Added Detection was performed. COMPARISON: Comparison is made with prior study dated May 12, 2022 and May 10, 2021. FINDINGS: Breast Composition: There are scattered areas of fibroglandular density. There are no dominant masses or suspicious calcifications. Stable benign-appearing bilateral axillary lymph nodes. No other significant abnormalities are identified. There has been no significant change since the prior study. BI/SCRN MAMM (CAD)W/ROBERTO BILAT IMPRESSION: Stable bilateral screening mammogram. Yearly follow-up mammogram recommended. (A) ASSESSMENT CATEGORY: BIRADS Category 2: Benign. A letter regarding these results will be sent to the patient by the facility within 30 days. Approximately 10% of breast cancers are not detected by mammography. A normal mammogram should not delay biopsy of a clinically suspicious abnormality. [id number] Electronically Signed: Jorge Johnson MD at 13:22 EDT Reading Location ID and State: [facility] , Service support , CC: VALENTIN Mcpherson Machine Bobbin Winder: Signed Cindy Mcpherson [employer]CIAL [employer] AGENT Work Phone: Start: 02-03-2023 End: 02-03-2023 Procedure Note: See Note; NOTES: [facility] [address] [place] [address], [address] [place] [address] OFFICE VISIT Date of Service: 02/03/23 MR#: [id number] Acct: [id number] Name: CARMEN GARCIA Rep #: [id number] : 1950 Provider: Dr. Edvin holland MD Age/Sex: 73/F Location: [facility] [place]. 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: Event Set Up Specialist Required: No Accompanied by: Self Allergies rosuvastatin [From Crestor] Allergy (Severe, Verified 02/03/23 15:44) Unknown ezetimibe [From Zetia] Allergy (Intermediate, Verified 02/03/23 15:44) Myalgia atorvastatin [From Lipitor] Allergy (Unknown, Verified 02/03/23 15:44) Unknown codeine Adverse Reaction (Intermediate, Verified 02/03/23 15:44) Chest pain ropinirole [From Requip] Adverse Reaction (Intermediate, Verified 02/03/23 15:44) Other [facility] Medical History Acute gastroenteritis Anxiety Arthralgia Atypical mole B12 deficiency Back pain, lumbosacral Dysthymic disorder Encounter for screening mammogram for breast cancer Essential tremor Eustachian tube dysfunction Fatigue Fibromyalgia GERD (gastroesophageal reflux disease) Headache Hip pain History of atrial flutter History of dyspnea Hypercholesterolemia Hypertension Hypertensive heart disease without heart failure Hypothyroidism Other and unspecified hyperlipidemia Pain in thoracic spine Parkinsons disease Sessile colonic polyp Sleep apnea Thyromegaly Tremor Vitamin D deficiency Surgical History H/O thyroidectomy History of cholecystectomy History of parathyroidectomy History of partial hysterectomy Family History Mother Breast cancer CVA (cerebral vascular accident) Hypertension Myocardial infarction Epilepsy Father Parkinsons disease Hypertension Skin cancer Other Emotional problems High cholesterol Social History (Updated 10/07/22 @ 13:44 by Martita Alex) Smoking Status: Never smoker second hand exposure: No alcohol intake: current alcohol intake frequency: holidays/special occasions only substance use type: does not use caffeine: Yes what type of physical activity do you participate in: other frequency: 1-2 times per week seatbelt use: sometimes HPI HPI Chief Complaint: Details: Interim History: Carmen returns for follow-up. She has a history of hypertension, hypercholesterolemia, vitamin B12 deficiency, vitamin D deficiency, hypothyroidism (s/p thyroidectomy for goiter), parathyroid nodules (s/p resection of parathyroid glands) and Parkinson's disease. She saw a neurologist in 2018 and was diagnosed with Parkinson's disease at that time. Her parkinsonian symptoms began in 2018 and manifested with a tremor in the hands and right leg. Her tremor in the hands is present at rest and with action. She also had slowing of her gait and a feeling of stiffness in her muscles. Ropinirole was not well tolerated (caused blurred vision). She started Sinemet in 2018 and had some reduction of her tremor and improvement of gait however in 2021 she began having increased tremor and further slowing of gait and an increase of carbidopa/levodopa 25/100 to one tablet QID was of benefit for her tremor but not of added benefit for her gait. She felt that she has continued to shuffle. She has micrographia. She has had some drooling. She remains able to ambulate independently. She denied having speech or swallowing difficulty. She does not have any history of neuroleptic use. She attends [employer] physical fitness program once weekly. Increasing her dose of carbidopa/levodopa 25/100 to 2 tablets 3 times daily has been of benefit in reducing her tremor however her other parkinsonian symptoms have been unchanged. She has had leg restlessness that primarily occurs at night. She had previously taken an iron supplement prescribed by a hospice patient care secretary after having a period of rectal bleeding in 2020. She has not had subsequent gastrointestinal bleeding. Labs checked in 2021 revealed normal iron and ferritin levels and a CBC did not reveal anemia. She has had bilateral thigh muscle tightness pain. She has some chronic intermittent low back pain which is not prominent. She has pain in the hips that she notes when she is lying on either hip at night. Her back pain and hip pain interfere with her ability to sleep. Her carotid ultrasound from 11/2019 revealed less than 50% stenosis of the right internal carotid artery and 50-69% stenosis of the left internal carotid artery. A repeat carotid ultrasound was completed earlier in 2022 at the [facility] in [place] (an official report is presently not available). She sees a vascular surgeon, Dr. Avila, for management of her carotid stenosis. She does not have any history of symptomatic cerebrovascular disease. Her head MRI from 2016 showed minimal chronic small vessel ischemic disease. She did not tolerate various lipid-lowering agents. Her lipid panel from 05/2021 was normal. She takes aspirin 81mg daily. Her vitamin D level was elevated in May 2021, and her vitamin D 1.25mg supplement was previously decreased to twice monthly by Dr. Weinstein. Meloxicam was not of benefit for her musculoskeletal pain. Physical Exam: Neuro: The patient is awake and alert and responds appropriately; speech is fluent; no tremor is noted when arms are extended; no rigidity is noted in the wrists; gait is slightly slow; decreased arm swing is noted bilaterally Neck: No bruits Heart: Regular rate and rhythm Supplemental Info Brain MRI 07/30/17 IMPRESSION: There are a limited number of small white matter hyperintensities, distributed throughout the deep white matter tracts of the cerebral hemispheres, nonspecific but most commonly seen with with mild chronic white matter ischemic changes. No acute intracranial abnormality or masses. Labs 08/05/17 CBC CMP: unremarkable Lipid Panel: Chol 235(H), LDL 150(H), otherwise unremarkable Folate 41.5 Labs 02/01/18 CMP: BUN/Creatine 9.5(L), Cl 108(H) otherwise unremarkable Vit D: 64 Labs 12/20/18 Lipid panel: unremarkable Lumbar spine x-ray 05/05/19 FINDINGS: Mild generalized osteopenia. Normal lumbar lordosis. There is no substantial scoliosis. There is a normal alignment of the vertebrae. Normal vertebral bodies and endplates. Minimal intervertebral disc space narrowing most marked at L5-S1 with vacuum phenomenon. Diffuse facet sclerosis. Vascular calcification. IMPRESSION: Osteopenia with mild lower lumbar spondylosis. Chest CTA 07/14/19 IMPRESSION: Normal CTA chest examination, without a demonstrated pulmonary embolism or arterial dissection. Labs 08/19/19 CMP: ATS 13(L) otherwise unremarkable TSH 0.59 Vit D 77.6 TXT- Blood Flow Screening 10/28/2019: Interpretation Summary: Mild to moderate disease was found in the carotid artery. RECOMMEND FOLLOW-UP WITH YOUR DOCTOR. Normal aortic ultrasound exam. The ankle/brachial index is normal(1.0 or greater). Carotid Duplex 11/16/19 Interpretation Summary Minimal smooth plaque at the proximal right internal carotid artery with less than 50% stenosis. <50% stenosis right external carotid. Irregular calcific plaque with shadowing at the proximal left internal carotid artery with 50 to 69% stenosis, noted more distally. <50% stenosis left external carotid Patent and antegrade bilateral vertebrals Labs 04/20/2020: CBC: Normal CMP: Alk phos 121 (H) Lipid Panel: cholesterol 209 (H) Vitamin B12: 784 (normal) Vitamin D: 86.7 (normal) TSH: Normal Labs (10/22/2020): BMP: Unremarkable TSH: Normal Vitamin D: Sufficient Labs (05/27/2021): CBCD: Unremarkable CMP: Unremarkable Lipid panel: Normal B12: 853 (normal) Vitamin D: 103.4 (H) TSH: Normal CMP, vitamin D, TSH (12/20/2021): EGFR 59 Coding Level of Care Code Off vis,est,level 4 Diagnoses Parkinson's disease G20 Restless legs syndrome G25.81 Assessment and Plan Assessment and Plan (1) Parkinson's disease: Status: Chronic (2) Restless legs syndrome: Status: Chronic Medications: New baclofen 10 mg PO QHS PRN 30 tabs 5RF muscle spasm/leg restlessness baclofen 10 mg PO QHS PRN 30 tabs 5RF muscle spasm/leg restlessness Refilled carbidopa-levodopa 25-100 mg 2 tabs PO TID 540 tabs 1RF Discontinued meloxicam Discontinued Reason: Pt no longer taking 7.5 mg PO BID PRN 60 tabs 4RF muscle/joint pain Plan Details Additional Comments: The patient has mild Parkinson's disease.??? She has had slowing of her gait, tremor and rigidity.??? These symptoms have improved with the use of carbidopa/levodopa and a recent dose increase of carbidopa/levodopa has resulted in further improvement of her tremor though her other parkinsonian symptoms have been unchanged. She has had micrographia and occasional drooling. Per prior discussion, she did not wish to pursue a head MRI for assessment of her parkinsonism. No tremors noted today. No rigidity is noted in the wrists on exam today. - Carbidopa/levodopa 25/100 2 tablets 3 times daily will be continued. - She participates once per week in the [employer] program for Parkinson's disease. She has nighttime restless leg syndrome. This is recently increased. Her labs from 2021 do not reveal anemia or iron deficiency. Ropinirole was not well-tolerated. - Baclofen 10 mg nightly as needed will be initiated. She has low back pain. She has bilateral hip pain that occurs at night which affects the particular hip she is lying on at the time. - I will have her begin meloxicam 7.5 mg twice daily as needed. Meloxicam was not of benefit. - If her low back and bilateral hip pain should persist then imaging studies of these regions will be pursued. Her carotid ultrasound from 11/2019 revealed less than 50% stenosis of the right internal carotid artery and 50-69% stenosis of the left internal carotid artery. She sees a vascular surgeon, Dr. Avila, for management of her carotid stenosis. She does not have any history of symptomatic cerebrovascular disease. Her head MRI from 2016 showed minimal chronic small vessel ischemic disease. She did not tolerate various lipid-lowering agents. Her lipid panel from 05/2021 was normal. She takes aspirin 81mg daily. - A repeat carotid ultrasound was completed earlier in 2022 at the [facility] in [place] and a report will be obtained for review Her vitamin D level was elevated in May 2021, and her vitamin D supplement was previously decreased to 1.25mg twice monthly by Dr. Weinstein. I will have her return for reassessment in 5 months.??? 02/03/231817 <Electronically signed by Edvin Armijo MD> Date Edvin Armijo MD Cosigner Signature: Date (if applicable) CC: Sushma Mueller Work Phone: Start: 10-07-2022 End: 10-07-2022 Procedure Note: See Note; NOTES: [facility] [address] [place] [address], [address] [place] [address] OFFICE VISIT Date of Service: 10/07/22 MR#: [id number] Acct: [id number] Name: CARMEN GARCIA Rep #: [id number] : 1950 Provider: Dr. Edvin holland MD Age/Sex: 72/F Location: [facility] Status: Signed Intake Vital Signs 10/07/22 13:32 Height 5 ft 3 in Weight: 202 lb 13 oz BMI 35.9 BP 144/78 H Blood Pressure Location Lt brachial Position Sitting Respiration 17 Pulse 78 Pulse Source Monitor Temp 98.0 F Temp Source Temporal Pulse Oximetry (%) 9 Oxygen Delivery Method room air Intake Visit Reasons: 5 M FU Chief Complaint: F/U Parkinson's disease Event Set Up Specialist Required: No Accompanied by: Self Is patient in pain?: No Allergies rosuvastatin [From Crestor] Allergy (Severe, Verified 10/07/22 13:40) Unknown ezetimibe [From Zetia] Allergy (Intermediate, Verified 10/07/22 13:40) Myalgia atorvastatin [From Lipitor] Allergy (Unknown, Verified 10/07/22 13:40) Unknown codeine Adverse Reaction (Intermediate, Verified 10/07/22 13:40) Chest pain ropinirole [From Requip] Adverse Reaction (Intermediate, Verified 10/07/22 13:40) Other Medications aspirin 81 mg tablet,delayed release 81 mg PO DAILY 05/05/19 [History Confirmed 10/07/22] garlic 1,000 mg capsule (garlic oil) 1,000 mg PO QPC PRN 05/05/19 [History Confirmed 10/07/22] irbesartan 300 mg tablet (Avapro) 300 mg PO DAILY 05/05/19 [History Confirmed 10/07/22] levothyroxine 137 mcg capsule 137 mcg PO DAILY 05/05/19 [History Confirmed 05/06/22] TENS unit and electrodes combo pack (Icy Hot Smart Relief TENS therapy combo pack) #1 ea 04/18/20 [History Confirmed 10/07/22] magnesium oxide 500 mg capsule 500 mg PO DAILY 04/18/20 [History Confirmed 10/07/22] mecobalamin (vitamin B12) 1,000 mcg chewable tablet 100 mcg PO DAILY 04/18/20 [History Confirmed 10/07/22] omega-3 fatty acids 1,000 mg capsule 1,000 mg PO DAILY 04/18/20 [History Confirmed 10/07/22] calcium carb,cit ER 600 mg-vit D3 12.5 mcg (500 unit) tablet,ext.rel (Citracal-D3 Slow Release) 1 tab PO DAILY 08/23/20 [History Confirmed 10/07/22] coenzyme Q10 100 mg capsule 100 mg PO DAILY 04/25/21 [History Confirmed 10/07/22] cholecalciferol (vitamin D3) 1,250 mcg (50,000 unit) capsule 50,000 unit PO .2x/month 10/31/21 [History Confirmed 10/07/22] zinc acetate 50 mg (zinc) capsule 50 mg PO BID 05/06/22 [History Confirmed 10/07/22] Disability Placard #1 ea 10/07/22 [Rx Confirmed 10/07/22] ascorbate calcium (vitamin C) 500 mg tablet 1 g PO DAILY 10/07/22 [History Confirmed 10/07/22] carbidopa 25 mg-levodopa 100 mg tablet 2 tab PO TID #540 tabs 10/07/22 [Rx Confirmed 10/07/22] meloxicam 7.5 mg tablet 7.5 mg PO BID PRN muscle/joint pain #60 tabs 10/07/22 [Rx Confirmed 10/07/22] [facility] Medical History Acute gastroenteritis Anxiety Arthralgia Atypical mole B12 deficiency Back pain, lumbosacral Dysthymic disorder Encounter for screening mammogram for breast cancer Essential tremor Eustachian tube dysfunction Fatigue Fibromyalgia GERD (gastroesophageal reflux disease) Headache Hip pain History of atrial flutter History of dyspnea Hypercholesterolemia Hypertension Hypertensive heart disease without heart failure Hypothyroidism Other and unspecified hyperlipidemia Pain in thoracic spine Parkinsons disease Sessile colonic polyp Sleep apnea Thyromegaly Tremor Vitamin D deficiency Surgical History H/O thyroidectomy History of cholecystectomy History of parathyroidectomy History of partial hysterectomy Family History Mother Breast cancer CVA (cerebral vascular accident) Hypertension Myocardial infarction Epilepsy Father Parkinsons disease Hypertension Skin cancer Other Emotional problems High cholesterol Social History (Updated 10/07/22 @ 13:44 by Martita Alex) Smoking Status: Never smoker second hand exposure: No alcohol intake: current alcohol intake frequency: holidays/special occasions only substance use type: does not use caffeine: Yes what type of physical activity do you participate in: other frequency: 1-2 times per week seatbelt use: sometimes HPI HPI Chief Complaint: F/U Parkinson's disease Details: Interim History: Carmen returns for follow-up. She has a history of hypertension, hypercholesterolemia, vitamin B12 deficiency, vitamin D deficiency, hypothyroidism (s/p thyroidectomy for goiter), parathyroid nodules (s/p resection of parathyroid glands) and Parkinson's disease. She saw a neurologist in 2019 and was diagnosed with Parkinson's disease at that time. Her parkinsonian symptoms began in 2019 and manifested with a tremor in the hands and right leg. Her tremor in the hands is present at rest and with action. She also had slowing of her gait and a feeling of stiffness in her muscles. Ropinirole was not well tolerated (caused blurred vision). She started Sinemet in 2019 and had some reduction of her tremor and improvement of gait however since earlier in 2021 she had increased tremor and further slowing of gait and an increase of Sinemet 25/100 to one tablet QID was of benefit for her tremor but not of added benefit for her gait. She feels that she continues to shuffle. She reported having some micrographia. She has had some drooling. She remains able to ambulate independently. She denied having speech or swallowing difficulty. She denied having numbness or weakness. She does not have any history of neuroleptic use. She attends [employer] physical fitness program once weekly. She has had some leg restlessness; this has diminished. She had previously taken an iron supplement prescribed by a hospice patient care secretary after having a period of rectal bleeding in 2020. She has not had subsequent gastrointestinal bleeding. Labs checked earlier in 2021 revealed normal iron and ferritin levels and a CBC did not reveal anemia. She experiences bilateral thigh muscle tightness pain. She has some chronic intermittent low back pain which is not prominent. She has pain in the hips that she notes when she is lying on either hip at night. Her back pain and hip pain interfere with her ability to sleep. Her carotid ultrasound from 11/2019 revealed less than 50% stenosis of the right internal carotid artery and 50-69% stenosis of the left internal carotid artery. A repeat carotid ultrasound was completed in December 2021 at the [facility] in [place] (an official report is presently not available). She sees a vascular surgeon, Dr. Avila, for management of her carotid stenosis. She does not have any history of symptomatic cerebrovascular disease and denies any new or recent symptoms suggestive of stroke. Her head MRI from 2016 showed minimal chronic small vessel ischemic disease. She did not tolerate various lipid-lowering agents. Her lipid panel from 05/2021 was normal. She takes aspirin 81mg daily. Her vitamin D level was elevated in May 2021, and her vitamin D 1.25mg supplement was decreased to twice monthly by Dr. Weinstein. Physical Exam: Neuro: The patient is awake and alert and responds appropriately; speech is fluent; a mild fine tremor is noted in the hands when arms are extended; no rigidity is noted in the wrists; gait is mildly slow; she had mild difficulty arising from a seated position Supplemental Info Brain MRI 07/30/17 IMPRESSION: There are a limited number of small white matter hyperintensities, distributed throughout the deep white matter tracts of the cerebral hemispheres, nonspecific but most commonly seen with with mild chronic white matter ischemic changes. No acute intracranial abnormality or masses. Labs 08/05/17 CBC CMP: unremarkable Lipid Panel: Chol 235(H), LDL 150(H), otherwise unremarkable Folate 41.5 Labs 02/01/18 CMP: BUN/Creatine 9.5(L), Cl 108(H) otherwise unremarkable Vit D: 64 Labs 12/20/18 Lipid panel: unremarkable Lumbar spine x-ray 7/25/19 FINDINGS: Mild generalized osteopenia. Normal lumbar lordosis. There is no substantial scoliosis. There is a normal alignment of the vertebrae. Normal vertebral bodies and endplates. Minimal intervertebral disc space narrowing most marked at L5-S1 with vacuum phenomenon. Diffuse facet sclerosis. Vascular calcification. IMPRESSION: Osteopenia with mild lower lumbar spondylosis. Chest CTA 07/14/19 IMPRESSION: Normal CTA chest examination, without a demonstrated pulmonary embolism or arterial dissection. Labs 08/19/19 CMP: ATS 13(L) otherwise unremarkable TSH 0.59 Vit D 77.6 TXT- Blood Flow Screening 10/28/2019: Interpretation Summary: Mild to moderate disease was found in the carotid artery. RECOMMEND FOLLOW-UP WITH YOUR DOCTOR. Normal aortic ultrasound exam. The ankle/brachial index is normal(1.0 or greater). Carotid Duplex 11/16/19 Interpretation Summary Minimal smooth plaque at the proximal right internal carotid artery with less than 50% stenosis. <50% stenosis right external carotid. Irregular calcific plaque with shadowing at the proximal left internal carotid artery with 50 to 69% stenosis, noted more distally. <50% stenosis left external carotid Patent and antegrade bilateral vertebrals Labs 04/20/2020: CBC: Normal CMP: Alk phos 121 (H) Lipid Panel: cholesterol 209 (H) Vitamin B12: 784 (normal) Vitamin D: 86.7 (normal) TSH: Normal Labs (10/22/2020): BMP: Unremarkable TSH: Normal Vitamin D: Sufficient Labs (05/27/2021): CBCD: Unremarkable CMP: Unremarkable Lipid panel: Normal B12: 853 (normal) Vitamin D: 103.4 (H) TSH: Normal CMP, vitamin D, TSH (12/20/2021): EGFR 59 Coding Level of Care Code Off vis,est,level 4 Diagnoses Parkinson's disease G20 History of rectal bleeding Z87.19 Restless legs syndrome G25.81 Assessment and Plan Assessment and Plan (1) Parkinson's disease: Status: Chronic (2) History of rectal bleeding: Status: Resolved (3) Restless legs syndrome: Status: Chronic Medications: New [Disability Placard] Expiration: 10/07/2025 1 ea 0RF meloxicam 7.5 mg PO BID PRN 60 tabs 4RF muscle/joint pain Changed From carbidopa-levodopa 25-100 mg 1 TAB PO .QID 360 tabs 1RF To carbidopa-levodopa 25-100 mg 2 tabs PO TID 540 tabs 1RF Discontinued ferrous sulfate Discontinued Reason: Pt no longer taking 325 mg PO DAILY Plan Details Additional Comments: The patient has mild Parkinson's disease.??? She has had slowing of her gait, tremor and rigidity.??? These symptoms have improved with the use of Sinemet however within recent months she has had some further slowing of her gait which did not improve with increasing her dose of Sinemet 25/100 to 1 tablet 4 times daily. She has had reduction of her tremor. She has had micrographia and occasional drooling. Per prior discussion, she did not wish to pursue a head MRI for assessment of her parkinsonism. - Sinemet 25/100 will be increased to 2 tablets 3 times daily . - She participates once per week in the [employer] program for Parkinson's disease. She describes having some leg restlessness. This has diminished. Her recent labs do not reveal anemia or iron deficiency. Ropinirole was not well-tolerated. - I am hopeful that the increase in her Sinemet dose will be of benefit for her restless leg syndrome. She has low back pain. She has bilateral hip pain that occurs at night which affects the particular hip she is lying on at the time. - I will have her begin meloxicam 7.5 mg twice daily as needed. - If her low back and bilateral hip pain should persist then imaging studies of these regions will be pursued. Her carotid ultrasound from 11/2019 revealed less than 50% stenosis of the right internal carotid artery and 50-69% stenosis of the left internal carotid artery. She sees a vascular surgeon, Dr. Avila, for management of her carotid stenosis. She does not have any history of symptomatic cerebrovascular disease. Her head MRI from 2016 showed minimal chronic small vessel ischemic disease. She did not tolerate various lipid-lowering agents. Her lipid panel from 05/2021 was normal. She takes aspirin 81mg daily. - A repeat carotid ultrasound was completed in December 2021 at the [facility] in [place] and a report will be obtained for review Her vitamin D level was elevated in May 2021, and her vitamin D supplement was decreased to 1.25mg twice monthly by Dr. Weinstein. I will have her return for reassessment in 4 months.??? 10/07/22 1627 <Electronically signed by Edvin Armijo MD> Date Edvin Armijo MD Cosigner Signature: Date (if applicable) CC: Sushma Mueller Work Phone: Start: 05-12-2022 End: 05-13-2022 Procedure Note: See Note; NOTES: [facility] Imaging Services [address] [place] [address] SCRN MAMM (CAD)W/ROBERTO BILAT MR#: [id number] Acct: [id number] Name: CARMEN GARCIA Rep #: [id number] : 1950 F 72 From: Efrain Vazquez MD PCP: VALENTIN Shukla Status: [facility] Study: SCRN MAMM (CAD)W/RBOERTO BILAT Date of Exam: 11/02 Exam# [id number] Ordering Dr: Sushma Mueller NP VICE PRESIDENT OF DEVELOPMENT-C MAMMOGRAPHY - BILATERAL SCREENING 3-D TOMOSYNTHESIS REASON FOR EXAM: Female, 72 years old. Routine screening PERTINENT HISTORY: Mother and aunts with breast cancer.. TECHNIQUE: 2-D mammograms and 3-D Tomosynthesis of the breast (s) were performed. CAD was performed. COMPARISON: 05/08/2020 FINDINGS: The breast composition is composed of scattered fibroglandular density. Scattered benign calcifications are seen. No dense spiculated masses or suspicious microcalcifications are identified. No architectural distortion is identified. There is no skin thickening or retraction. There has been no significant change since the prior study. BI/SCRN MAMM (CAD)W/ROBERTO BILAT IMPRESSION: No mammographic signs of malignancy. Routine yearly mammograms recommended. ASSESSMENT CATEGORY: BIRADS Category 2: Benign. A letter regarding these results will be sent to the patient by the facility within 30 days. FOLLOW UP RECOMMENDATION: Yearly follow up mammogram recommended. (A) Approximately 10% of breast cancers are not detected by mammography. A normal mammogram should not delay biopsy of a clinically suspicious abnormality. Electronically Signed: Ace Vazquez MD at 15:01 EDT , CC: VALENTIN Mueller Machine Bobbin Winder: Signed Cindy Mcpherson CNP Work Phone: Start: 05-06-2022 End: 05-06-2022 Procedure Note: See Note; NOTES: [facility] [address] [facility] [address] [place], [place] [address] OFFICE VISIT Date of Service: 05/06/22 MR#: [id number] Acct: [id number] Name: CARMEN GARCIA Rep #: [id number] : 1950 Provider: Dr. Edvin holland MD Age/Sex: 72/F Location: [facility] Status: Signed Intake Vital Signs 05/06/22 11:35 BP 144/84 H Blood Pressure Location Rt brachial Position Sitting Respiration 20 H Pulse 83 Pulse Source Monitor Temp 98.0 F Temp Source Temporal Pulse Oximetry (%) 98 Oxygen Delivery Method room air Intake Visit Reasons: 6 M FU Chief Complaint: F/U Parkinson's disease Allergies rosuvastatin [From Crestor] Allergy (Severe, Verified 05/06/22 11:34) Unknown ezetimibe [From Zetia] Allergy (Intermediate, Verified 05/06/22 11:34) Myalgia atorvastatin [From Lipitor] Allergy (Unknown, Verified 05/06/22 11:34) Unknown codeine Adverse Reaction (Intermediate, Verified 05/06/22 11:34) Chest pain ropinirole [From Requip] Adverse Reaction (Intermediate, Verified 05/06/22 11:34) Other Medications aspirin 81 mg tablet,delayed release 81 mg PO DAILY 05/05/19 [History Confirmed 05/06/22] garlic 1,000 mg capsule (garlic oil) 1,000 mg PO QPC PRN 05/05/19 [History Confirmed 05/06/22] irbesartan 300 mg tablet (Avapro) 300 mg PO DAILY 05/05/19 [History Confirmed 05/06/22] levothyroxine 137 mcg capsule 137 mcg PO DAILY 05/05/19 [History Confirmed 05/06/22] TENS unit and electrodes combo pack (Icy Hot Smart Relief TENS therapy combo pack) #1 ea 04/18/20 [History Confirmed 05/06/22] magnesium oxide 500 mg capsule 500 mg PO DAILY 04/18/20 [History Confirmed 05/06/22] mecobalamin (vitamin B12) 1,000 mcg chewable tablet 100 mcg PO DAILY 04/18/20 [History Confirmed 05/06/22] omega-3 fatty acids 1,000 mg capsule 1,000 mg PO DAILY 04/18/20 [History Confirmed 05/06/22] calcium carb,cit ER 600 mg-vit D3 12.5 mcg (500 unit) tablet,ext.rel (Citracal-D3 Slow Release) 1 tab PO DAILY 08/23/20 [History Confirmed 05/06/22] coenzyme Q10 100 mg capsule 100 mg PO DAILY 04/25/21 [History Confirmed 05/06/22] cholecalciferol (vitamin D3) 1,250 mcg (50,000 unit) capsule 50,000 unit PO .2x/month 10/31/21 [History Confirmed 05/06/22] ferrous sulfate 325 mg (65 mg iron) tablet 325 mg PO DAILY 10/31/21 [History Confirmed 05/06/22] carbidopa 25 mg-levodopa 100 mg tablet 1 tab PO .QID #360 tabs 05/06/22 [Rx Confirmed 05/06/22] zinc acetate 50 mg (zinc) capsule 50 mg PO BID 05/06/22 [History Confirmed 05/06/22] [facility] Medical History (Updated 05/06/22 @ 13:[address] Edvin Armijo MD) Acute gastroenteritis Anxiety Arthralgia Atypical mole B12 deficiency Back pain, lumbosacral Dysthymic disorder Encounter for screening mammogram for breast cancer Essential tremor Eustachian tube dysfunction Fatigue Fibromyalgia GERD (gastroesophageal reflux disease) Headache Hip pain History of atrial flutter History of dyspnea Hypercholesterolemia Hypertension Hypertensive heart disease without heart failure Hypothyroidism Other and unspecified hyperlipidemia Pain in thoracic spine Parkinsons disease Sessile colonic polyp Sleep apnea Thyromegaly Tremor Vitamin D deficiency Surgical History H/O thyroidectomy History of cholecystectomy History of parathyroidectomy History of partial hysterectomy Family History Mother Breast cancer CVA (cerebral vascular accident) Hypertension Myocardial infarction Epilepsy Father Parkinsons disease Hypertension Skin cancer Other Emotional problems High cholesterol Social History Smoking Status: Never smoker alcohol intake: current alcohol intake frequency: holidays/special occasions only substance use type: does not use caffeine: Yes HPI HPI Chief Complaint: F/U Parkinson's disease Details: Interim History: The patient returns for follow-up. She has a history of hypertension, hypercholesterolemia, vitamin B12 deficiency, vitamin D deficiency, hypothyroidism (s/p thyroidectomy for goiter), parathyroid nodules (s/p resection of parathyroid glands) and Parkinson's disease. She had seen a neurologist in 2018 and was diagnosed with Parkinson's disease at that time. Her parkinsonian symptoms began in early 2018 and manifested with a tremor in the hands and right leg. Her tremor in the hands was present at rest and with action. She also had slowing of her gait and a feeling of stiffness in her muscles. She did not tolerate ropinirole due to a side effect of blurred vision. She has been taking Sinemet 25/100mg TID since early 2018 and reports reduction of her tremor and improvement of her gait though within recent months she has had an increase in her tremor, some further slowing of her gait and extremity movement and reports having micrographia. She has had drooling. She is tolerating the Sinemet well. She does not require assistive aids for ambulation or mobility. She denied having speech or swallowing difficulty. She denied having numbness or weakness. She does not have any history of neuroleptic use. She attends [employer] physical fitness program once weekly. She has had some leg restlessness. She had previously taken an iron supplement prescribed by a hospice patient care secretary after having a period of rectal bleeding in 2020. She experiences right thigh muscle tightness pain. She has some chronic intermittent low back pain which is not prominent. Her carotid ultrasound from 11/2019 revealed less than 50% stenosis of the right internal carotid artery and 50-69% stenosis of the left internal carotid artery. A repeat carotid ultrasound was completed in December 2021 at the [facility] in [place] (an official report is presently not available). She sees a vascular surgeon, Dr. Avila, for management of her carotid stenosis. She does not have any history of symptomatic cerebrovascular disease and denies any new or recent symptoms suggestive of stroke. Her head MRI from 2016 showed minimal chronic small vessel ischemic disease. She did not tolerate various lipid-lowering agents. Her lipid panel from 05/2021 was normal. She takes aspirin 81mg daily. Her vitamin D level was elevated in May 2021, and her vitamin D 1.25mg supplement was decreased to twice monthly by Dr. Weinstein. Physical Exam: Neuro: The patient is awake and alert and responds appropriately; speech is fluent; no tremor is noted presently; no rigidity is noted in the wrists; gait is mildly slow; motor strength is 5/5 in the quadriceps bilaterally and foot dorsiflexors bilaterally Neck: No bruits Heart: Regular rate and rhythm Supplemental Info Brain MRI 07/30/17 IMPRESSION: There are a limited number of small white matter hyperintensities, distributed throughout the deep white matter tracts of the cerebral hemispheres, nonspecific but most commonly seen with with mild chronic white matter ischemic changes. No acute intracranial abnormality or masses. Labs 08/05/17 CBC CMP: unremarkable Lipid Panel: Chol 235(H), LDL 150(H), otherwise unremarkable Folate 41.5 Labs 02/01/18 CMP: BUN/Creatine 9.5(L), Cl 108(H) otherwise unremarkable Vit D: 64 Labs 12/20/18 Lipid panel: unremarkable Lumbar spine x-ray 05/05/19 FINDINGS: Mild generalized osteopenia. Normal lumbar lordosis. There is no substantial scoliosis. There is a normal alignment of the vertebrae. Normal vertebral bodies and endplates. Minimal intervertebral disc space narrowing most marked at L5-S1 with vacuum phenomenon. Diffuse facet sclerosis. Vascular calcification. IMPRESSION: Osteopenia with mild lower lumbar spondylosis. Chest CTA 07/14/19 IMPRESSION: Normal CTA chest examination, without a demonstrated pulmonary embolism or arterial dissection. Labs 08/19/19 CMP: ATS 13(L) otherwise unremarkable TSH 0.59 Vit D 77.6 TXT- Blood Flow Screening 10/28/2019: Interpretation Summary: Mild to moderate disease was found in the carotid artery. RECOMMEND FOLLOW-UP WITH YOUR DOCTOR. Normal aortic ultrasound exam. The ankle/brachial index is normal(1.0 or greater). Carotid Duplex 11/16/19 Interpretation Summary Minimal smooth plaque at the proximal right internal carotid artery with less than 50% stenosis. <50% stenosis right external carotid. Irregular calcific plaque with shadowing at the proximal left internal carotid artery with 50 to 69% stenosis, noted more distally. <50% stenosis left external carotid Patent and antegrade bilateral vertebrals Labs 04/20/2020: CBC: Normal CMP: Alk phos 121 (H) Lipid Panel: cholesterol 209 (H) Vitamin B12: 784 (normal) Vitamin D: 86.7 (normal) TSH: Normal Labs (10/22/2020): BMP: Unremarkable TSH: Normal Vitamin D: Sufficient Labs (05/27/2021): CBCD: Unremarkable CMP: Unremarkable Lipid panel: Normal B12: 853 (normal) Vitamin D: 103.4 (H) TSH: Normal CMP, vitamin D, TSH (12/20/2021): EGFR 59 Coding Level of Care Code Off vis,est,level 4 Diagnoses Parkinson's disease G20 History of rectal bleeding Z87.19 Restless legs syndrome G25.81 Assessment and Plan Assessment and Plan (1) Parkinson's disease: Status: Chronic (2) History of rectal bleeding: Status: Resolved (3) Restless legs syndrome: Status: Chronic Orders: Orders Iron Today Z86.2 - Personal history of diseases of the blood and blood-forming organs and certain disorders involving the immune mechanism Ferritin Today Z86.2 - Personal history of diseases of the blood and blood-forming organs and certain disorders involving the immune mechanism CBC-Complete Blood Cnt No Diff Today G20 - Parkinson's disease, Z86.2 - Personal history of diseases of the blood and blood-forming organs and certain disorders involving the immune mechanism Medications: Changed From carbidopa-levodopa 25-100 mg 10am, 4pm, 10pm 1 TAB PO TID 270 tabs 1RF To carbidopa-levodopa 25-100 mg 1 TAB PO .QID 360 tabs 1RF Plan Details Additional Comments: The patient has mild Parkinson's disease.??? She has had slowing of her gait, tremor and rigidity.??? These symptoms have improved with the use of Sinemet however within recent months she reports some further slowing of her gait and generalized decreased movement, micrographia, drooling and increased right hand tremor. Per prior discussion, she did not wish to pursue a head MRI for assessment of her parkinsonism. - Sinemet 25/100 will be increased to 1 tablet 4 times daily. - She participates once per week in the [employer] program for Parkinson's disease. She describes having some leg restlessness. In 2020, she had a several day period of rectal bleeding following a colonoscopy and was evaluated by a hospice patient care secretary, Dr. Henry, and treated with an iron supplement. She no longer takes an iron supplement. - I am hopeful that the increase in her Sinemet dose will be of benefit for her restless leg syndrome. - A CBC, serum iron and ferritin will be checked and reinitiation of an iron supplement will be determined after review of the studies (if iron is resumed it is not to be taken within 2 hours of her Sinemet doses). Her carotid ultrasound from 11/2019 revealed less than 50% stenosis of the right internal carotid artery and 50-69% stenosis of the left internal carotid artery. She sees a vascular surgeon, Dr. Avila, for management of her carotid stenosis. She does not have any history of symptomatic cerebrovascular disease. Her head MRI from 2016 showed minimal chronic small vessel ischemic disease. She did not tolerate various lipid-lowering agents. Her lipid panel from 05/2021 was normal. She takes aspirin 81mg daily. - A repeat carotid ultrasound was completed in December 2021 at the [facility] in [place] and a report will be obtained for review Her vitamin D level was elevated in May 2021, and her vitamin D supplement was decreased to 1.25mg twice monthly by Dr. Weinstein. I will have her return for reassessment in 5 months.??? 05/06/22 6963 <Electronically signed by Edvin Armijo MD> Date Edvin Armijo MD Cosigner Signature: Date (if applicable) CC: Sushma Mueller Work Phone: Start: 10-31-2021 End: 10-31-2021 Comments: See Note; NOTES: [facility] [address] [place], [place] [address] OFFICE VISIT Date of Service: 10/31/21 MR#: [id number] Acct: [id number] Name: CARMEN GARCIA Rep #: [id number] : 1950 Provider: VALENTIN carrasco Age/Sex: 71/F Location: [facility] [place]. Status: Signed Intake Vital Signs 10/31/21 11:03 10/31/21 11:05 BP 146/90 H 146/88 H Blood Pressure Location Lt brachial Lt brachial Position Sitting Standing Pulse 74 78 Pulse Source Monitor Monitor Pulse Oximetry (%) 97 98 Oxygen Delivery Method room air room air Intake Visit Reasons: 6 M FU Chief Complaint: F/U Parkinson's disease Event Set Up Specialist Required: No Accompanied by: self Is patient in pain?: No Allergies rosuvastatin [From Crestor] Allergy (Severe, Verified 10/31/21 11:02) Unknown ezetimibe [From Zetia] Allergy (Intermediate, Verified 10/31/21 11:02) Myalgia atorvastatin [From Lipitor] Allergy (Unknown, Verified 10/31/21 11:02) Unknown codeine Adverse Reaction (Intermediate, Verified 10/31/21 11:02) Chest pain ropinirole [From Requip] Adverse Reaction (Intermediate, Verified 10/31/21 11:02) Other Medications aspirin 81 mg tablet,delayed release 81 mg PO DAILY 05/05/19 [History Confirmed 10/31/21] garlic 1,000 mg capsule 1,000 mg PO QPC PRN 05/05/19 [History Confirmed 10/31/21] irbesartan 300 mg tablet 300 mg PO DAILY 05/05/19 [History Confirmed 10/31/21] levothyroxine 137 mcg capsule 137 mcg PO DAILY 05/05/19 [History Confirmed 10/31/21] TENS unit and electrodes combo pack #1 ea 04/18/20 [History Confirmed 10/31/21] magnesium oxide 500 mg capsule 500 mg PO DAILY 04/18/20 [History Confirmed 10/31/21] mecobalamin (vitamin B12) 1,000 mcg chewable tablet 100 mcg PO DAILY tab 04/18/20 [History Confirmed 10/31/21] omega-3 fatty acids 1,000 mg capsule 1,000 mg PO DAILY 04/18/20 [History Confirmed 10/31/21] calcium carb,cit ER 600 mg-vit D3 12.5 mcg (500 unit) tablet,ext.rel 1 tab PO DAILY tab 08/23/20 [History Confirmed 10/31/21] coenzyme Q10 100 mg capsule 100 mg PO DAILY 04/25/21 [History Confirmed 10/31/21] carbidopa 25 mg-levodopa 100 mg tablet 1 tab PO TID #270 tab 10/31/21 [Rx Confirmed 10/31/21] cholecalciferol (vitamin D3) 1,250 mcg (50,000 unit) capsule 50,000 unit PO .2x/month cap 10/31/21 [History Confirmed 10/31/21] ferrous sulfate 325 mg (65 mg iron) tablet 325 mg PO DAILY 10/31/21 [History Confirmed 10/31/21] PFSH Medical History Acute gastroenteritis Anxiety Arthralgia Atypical mole B12 deficiency Back pain, lumbosacral Dysthymic disorder Encounter for screening mammogram for breast cancer Essential tremor Eustachian tube dysfunction Fatigue Fibromyalgia GERD (gastroesophageal reflux disease) Headache Hip pain History of atrial flutter History of dyspnea Hypercholesterolemia Hypertension Hypertensive heart disease without heart failure Hypothyroidism Other and unspecified hyperlipidemia Pain in thoracic spine Parkinsons disease Sessile colonic polyp Sleep apnea Thyromegaly Tremor Vitamin D deficiency Surgical History H/O thyroidectomy History of cholecystectomy History of parathyroidectomy History of partial hysterectomy Family History Mother Breast cancer CVA (cerebral vascular accident) Hypertension Myocardial infarction Epilepsy Father Parkinsons disease Hypertension Skin cancer Other Emotional problems High cholesterol Social History Smoking Status: Never smoker alcohol intake: current alcohol intake frequency: holidays/special occasions only substance use type: does not use caffeine: Yes HPI HPI Chief Complaint: F/U Parkinson's disease Details: Interim History: The patient returns for follow-up. She has a history of hypertension, hypercholesterolemia, vitamin B12 deficiency, vitamin D deficiency, hypothyroidism (s/p thyroidectomy for goiter), parathyroid nodules (s/p resection of parathyroid glands), and Parkinson's disease. She had seen a neurologist in 2019 and was diagnosed with Parkinson's disease at that time. Her parkinsonian symptoms began in early 2018 and manifested with a tremor in the hands and right leg. Her tremor in the hands was present at rest and with action. She also had slowing of her gait and a feeling of stiffness in her muscles. She did not tolerate ropinirole due to a side effect of blurred vision. She has been taking Sinemet 25/100mg TID since early 2018 and reports reduction of her tremor and improvement of her gait. She now only experiences tremors when she is very anxious or under emotional stress; these tremors occur primarily in her bilateral hands and seldom in her left leg. She denies any recent upper extremity or hand tremors, and her left leg tremor has been very mild and infrequent. She satisfied with her current level of symptom control. She is tolerating the Sinemet well. She states she occasionally has to remind herself to walk heel-to-toe with her left foot, as she tends to shuffle this foot at times. She does not require assistive aids for ambulation or mobility. She denies any recent falls. She denies any speech or swallowing difficulty. She denies having any headaches or vision change. She does not have any numbness or weakness. She does not have any history of neuroleptic use. She attends a Parkinson's-tailored physical fitness program once weekly. Her occasional right-sided charley horse type neck pain which had previously occurred a few times per month has resolved. The neck pain was brief in duration, lasting only seconds, and was exacerbated by movement. She has some chronic intermittent low back pain which is not prominent. Her carotid ultrasound from 11/2019 revealed less than 50% stenosis of the right internal carotid artery and 50-69% stenosis of the left internal carotid artery. A repeat carotid ultrasound was completed last months, and the patient reports there were no changes identified. She sees a vascular surgeon, Dr. Avila, for management of her carotid stenosis. She does not have any history of symptomatic cerebrovascular disease and denies any new or recent symptoms suggestive of stroke. Her head MRI from 2016 showed minimal chronic small vessel ischemic disease. She did not tolerate various lipid-lowering agents. Her lipid panel from 05/2021 was normal she takes aspirin 81mg daily. She had a colonoscopy a few months ago with Dr. Henry, and subsequently developed several days of rectal bleeding. She was started on an iron supplement by Dr. Henry for this reason. She has been taking her iron supplement daily at the same time as her morning dose of Sinemet. She has not had any further rectal bleeding in at least the last 2 months. She has had mild leg restlessness in the past, though in recent months this has not been bothersome. Her vitamin D level was elevated in May 2021, and her vitamin D supplement was decreased to twice monthly by Dr. Weinstein. Physical Exam: General: Well-nourished, well-groomed, in no acute distress Neuro: The patient is awake and alert and responds appropriately; speech is fluent; language function is normal; face is symmetrical, tongue is midline, palate elevation is normal; no tremor is noted presently; mild right wrist cogwheel rigidity is noted with distraction; no left wrist rigidity is noted; no rigidity is noted in the ankles; motor strength 5/5 in the hands, quadriceps bilaterally, foot dorsiflexors bilaterally, and foot plantar flexors bilaterally; gait is mildly slow but independent and steady Neck: No bruits Heart: Regular rate and rhythm Psych: Appropriate mood and normal affect; pleasant ROS Const Constitutional: No fatigue, fever(s), frequent falls or weight change Cardio Cardiology: No chest pain at rest, chest pain with exertion or shortness of breath Gastro GI: No Blood in stool or Black,tarry stools Genitourinary-Female: No difficulty urinating, urinary incontinence, urinary frequency, urinary urgency, urinary hesitancy or urinary retention Musc Musculoskeletal: Positive for abnormal gait and restless legs Skin Skin: No rash Neuro Neurology: Positive for abnormal gait, restless legs and tremor(s); No abnormal movements, unsteady gait/balance or frequent falls Psych Psychiatric: No anxiety and No depression Endo Endocrine: No fatigue or weight change Supplemental Info Brain MRI 07/30/17 IMPRESSION: There are a limited number of small white matter hyperintensities, distributed throughout the deep white matter tracts of the cerebral hemispheres, nonspecific but most commonly seen with with mild chronic white matter ischemic changes. No acute intracranial abnormality or masses. Labs 08/05/17 CBC CMP: unremarkable Lipid Panel: Chol 235(H), LDL 150(H), otherwise unremarkable Folate 41.5 Labs 02/01/18 CMP: BUN/Creatine 9.5(L), Cl 108(H) otherwise unremarkable Vit D: 64 Labs 12/20/18 Lipid panel: unremarkable Lumbar spine x-ray 05/05/19 FINDINGS: Mild generalized osteopenia. Normal lumbar lordosis. There is no substantial scoliosis. There is a normal alignment of the vertebrae. Normal vertebral bodies and endplates. Minimal intervertebral disc space narrowing most marked at L5-S1 with vacuum phenomenon. Diffuse facet sclerosis. Vascular calcification. IMPRESSION: Osteopenia with mild lower lumbar spondylosis. Chest CTA 07/14/19 IMPRESSION: Normal CTA chest examination, without a demonstrated pulmonary embolism or arterial dissection. Labs 08/19/19 CMP: ATS 13(L) otherwise unremarkable TSH 0.59 Vit D 77.6 TXT- Blood Flow Screening 10/28/2019: Interpretation Summary: Mild to moderate disease was found in the carotid artery. RECOMMEND FOLLOW-UP WITH YOUR DOCTOR. Normal aortic ultrasound exam. The ankle/brachial index is normal(1.0 or greater). Carotid Duplex 11/16/19 Interpretation Summary Minimal smooth plaque at the proximal right internal carotid artery with less than 50% stenosis. <50% stenosis right external carotid. Irregular calcific plaque with shadowing at the proximal left internal carotid artery with 50 to 69% stenosis, noted more distally. <50% stenosis left external carotid Patent and antegrade bilateral vertebrals Labs 04/20/2020: CBC: Normal CMP: Alk phos 121 (H) Lipid Panel: cholesterol 209 (H) Vitamin B12: 784 (normal) Vitamin D: 86.7 (normal) TSH: Normal Labs (10/22/2020): BMP: Unremarkable TSH: Normal Vitamin D: Sufficient Labs (05/27/2021): CBCD: Unremarkable CMP: Unremarkable Lipid panel: Normal B12: 853 (normal) Vitamin D: 103.4 (H) TSH: Normal Coding Level of Care Code Off vis,est,level 4 Diagnoses Parkinson's disease G20 Cerebrovascular small vessel disease I67.9 Asymptomatic stenosis of left carotid artery I65.22 Assessment and Plan Assessment and Plan (1) Parkinson's disease: Status: Chronic (2) Cerebrovascular small vessel disease: Status: Chronic (3) Asymptomatic stenosis of left carotid artery: Status: Chronic Plan - Rani Rodriguez VICE PRESIDENT OF DEVELOPMENT, VICE PRESIDENT OF DEVELOPMENT-C: The patient has mild Parkinson's disease. She has had slowing of her gait, tremor, and rigidity. These symptoms have improved with the use of Sinemet and she is satisfied with her current level of symptom control. Sinemet 25/100 1 tablet 3 times daily will be continued. She participates in a Parkinson's-tailored physical fitness program once weekly and is encouraged to continue this activity. She did not wish to pursue a head MRI. Her carotid ultrasound from November 2019 revealed less than 50% stenosis of the right internal carotid artery and 50-69% stenosis of the left internal carotid artery. A follow-up carotid ultrasound was completed November 2020 and she reports no change in findings. She did not tolerate various lipid-lowering agents. Her lipid panel from 05/2021 was normal. She takes aspirin 81mg daily and this will be continued. She does not have any history of symptomatic cerebrovascular disease (minimal chronic small vessel ischemic disease was noted on her head MRI from 2016). She had a colonoscopy a few months ago with Dr. Henry, and subsequently developed several days of rectal bleeding. She was started on an iron supplement by Dr. Henry for this reason, and has been taking her iron supplement daily at the same time as her morning dose of Sinemet. She was advised to take her Sinemet at least 2 hours prior to taking her iron supplement, due to the potential for delayed absorption of levodopa. She has not had any further rectal bleeding in at least the last 2 months. Should she experience any signs or symptoms of gastrointestinal bleeding, she was advised to discontinue her aspirin and contact our office and Dr. Henry's office for further guidance. Her vitamin D level was elevated in May 2021, and her vitamin D supplement was decreased to twice monthly by Dr. Weinstein. I will have her return for reassessment in 6 months. Patient was advised to contact our office sooner with any questions or concerns. Thank you for this consultation. Plan Details Other Medications: Refilled: carbidopa-levodopa 25-100 mg 10am, 4pm, 10pm 1 TAB PO TID 270 tabs 2RF Additional Comments: Greater than 30 minutes were spent by me on today's visit. This time includes coordinating care, reviewing labs/records/history, interpretation of test results, and counseling patient/family. This also includes time spent with the patient for exam, treatment plan, and education as well as documenting clinical information in the electronic health record. 10/31/21 1205 <Electronically signed by Rani Rodriguez NP VICE PRESIDENT OF DEVELOPMENT- C> Date Rani Rodriguez NP VICE PRESIDENT OF DEVELOPMENT-C Cosigner Signature: Date (if applicable) CC: VICE PRESIDENT OF DEVELOPMENT-Bijan Mueller [employer] Work Phone: Start: 08-13-2021 End: 08-13-2021 Comments: See Note; NOTES: [facility] [address] [place] [address] Venous Duplex US, Unilateral 08/13/21 1430 MR#: [id number] Acct: [id number] Name: CARMEN GARCIA Rep #: [id number] : 1950 71 From: Bright Padilla MD Attending Dr: VALENTIN Shukla Status: REG CLI Ordering Dr: Sushma Mueller NP VICE PRESIDENT OF DEVELOPMENT-C Date: 08/13/21 Location: [facility] Sex: F C Admitted: Reason For Study: Lt ankle swelling RIGHT LEFT CFV is compressible, spontaneous, phasic, GSV is normal. competent and demonstrates normal CFV is compressible, spontaneous, phasic, augmentation. competent, and demonstrates normal Procedure augmentation. This is a venous duplex using B-mode, color FV is compressible, spontaneous, phasic, flow and spectral Doppler. competent and demonstrates normal Exam performed in department. augmentation. A preliminary report was called and/or faxed POP V is compressible, spontaneous, phasic, to Ami. competent and demonstrates normal augmentation. T/P Trunk is compressible. PTV is compressible. LT PerV is compressible. VL/Venous Duplex US, Unilateral Interpretation Summary Deep veins of the left lower extremity are patent and compressible segmentally. There is no evidence of left lower extremity deep vein thrombosis. Valvular competence appears intact within the proximal deep venous system on the left . The left great saphenous vein appears patent and compressible segmentally. _ Ordering Physician: Sushma Mueller Referring Physician: Sushma Mueller Performed By: Myrna Garcia RVT 08/13/212032 Date Bright Padilla MD CC: VICE PRESIDENT OF DEVELOPMENT-C Sushma Mueller Date Dictated: 08/13/21 1430 Date Transcribed: 08/13/212032 Machine Bobbin Winder: Signed Sushma Mueller [facility] Work Phone: Start: 08-13-2021 End: 08-13-2021 Comments: See Note; NOTES: [facility] [address] [place] [address] Ankle min 3 Views MR#: [id number] Acct: [id number] Name: CARMEN GARCIA Rep #: [id number] : 1950 F 71 From: Louise devine MD PCP: Sushma Mueller NP-Bijan Status: DEP AMB Study: Ankle min 3 Views Date of Exam: 08/13/21 Exam# [id number] Ordering Dr: Suhsma Mueller VICE PRESIDENT OF DEVELOPMENT VICE PRESIDENT OF DEVELOPMENT-C HISTORY: PAIN. TECHNIQUE: XR Ankle Min 3 Views. Number of images including paperwork: 3. COMPARISON: None. FINDINGS: OSSEOUS STRUCTURES: No acute fracture identified. Chronic well-corticated fragment noted at the fifth metatarsal base. Smooth talar dome. Mineralization unremarkable. Cocaine enthesopathy noted. JOINT SPACES: Mild degenerative change. No dislocation. SOFT TISSUES: Medial soft tissue swelling. Joint effusion. RAD/Ankle min 3 Views IMPRESSION: No acute fracture or dislocation identified in the left ankle. at 1404 Reported and signed by: Louise Telles MD Electronically Signed: Louise Telles MD at 14:03 EDT Tel , Service support , CC: OLIVE-C Sushma Mueller Machine Bobbin Winder: Signed Sushma Mueller CNP Work Phone: Start: 05-10-2021 End: 05-10-2021 Comments: See Note; NOTES: [facility] Imaging Services [address] [place] [id number] SCRN MAMM (CAD)W/ROBERTO BILAT MR#: [id number] Acct: [id number] Name: CARMEN GARCIA Rep #: [id number] : 1950 F 71 From: Efrain Vazquez MD PCP: VALENTIN Shukla Status: REG CLI Study: SCRN MAMM (CAD)W/ROBERTO BILAT Date of Exam: 04/13 Exam# [id number] Ordering Dr: Sushma Mueller NP VICE PRESIDENT OF DEVELOPMENT-Bijan MAMMOGRAPHY - BILATERAL SCREENING 3-D TOMOSYNTHESIS REASON FOR EXAM: Female, 71 years old. Routine screening PERTINENT HISTORY: Mother and aunts with breast cancer.. TECHNIQUE: 2-D mammograms and 3-D Tomosynthesis of the breast (s) were performed. CAD was performed. COMPARISON: 05/08/2020 FINDINGS: The breast composition is composed of scattered fibroglandular density. Scattered benign calcifications are seen. No dense spiculated masses or suspicious microcalcifications are identified. No architectural distortion is identified. There is no skin thickening or retraction. There has been no significant change since the prior study. BI/SCRN MAMM (CAD)W/ROBERTO BILAT IMPRESSION: No mammographic signs of malignancy. Routine yearly mammograms recommended. ASSESSMENT CATEGORY: BIRADS Category 2: Benign. A letter regarding these results will be sent to the patient by the facility within 30 days. FOLLOW UP RECOMMENDATION: Yearly follow up mammogram recommended. (A) Approximately 10% of breast cancers are not detected by mammography. A normal mammogram should not delay biopsy of a clinically suspicious abnormality. Electronically Signed: Ace Vazquez MD at 12:24 EDT , Service support , CC: VALENTIN Mueller Machine Bobbin Winder: Signed Sushma Mueller [employer] Work Phone: Start: 04-25-2021 End: 04-25-2021 Comments: See Note; NOTES: [facility] [address] [facility] [place] [address] OFFICE VISIT Date of Service: 04/25/21 MR#: [id number] Acct: [id number] Name: CARMEN GARCIA Rep #: [id number] : 1950 Provider: VALENTIN carrasco Age/Sex: 71/F Location: [facility] [place]. Status: Signed Intake Vital Signs 04/25/21 12:59 BP 136/84 H Blood Pressure Location Lt brachial Position Sitting Respiration 16 Pulse 75 Pulse Source Monitor Pulse Oximetry (%) 97 Oxygen Delivery Method room air Intake Visit Reasons: 4 M FU Chief Complaint: F/U Parkinson's disease Event Set Up Specialist Required: No Accompanied by: Self Is patient in pain?: No Allergies rosuvastatin [From Crestor] Allergy (Severe, Verified 04/25/21 12:57) Unknown ezetimibe [From Zetia] Allergy (Intermediate, Verified 04/25/21 12:57) Myalgia atorvastatin [From Lipitor] Allergy (Unknown, Verified 04/25/21 12:57) Unknown codeine Adverse Reaction (Intermediate, Verified 04/25/21 12:57) Chest pain ropinirole [From Requip] Adverse Reaction (Intermediate, Verified 04/25/21 12:57) Other Medications aspirin 81 mg tablet,delayed release 81 mg PO DAILY 05/05/19 [History Confirmed 04/25/21] cholecalciferol (vitamin D3) 1,250 mcg (50,000 unit) capsule 50,000 unit PO QWEEK 05/05/19 [History Confirmed 04/25/21] garlic 1,000 mg capsule 1,000 mg PO QPC PRN 05/05/19 [History Confirmed 04/25/21] irbesartan 300 mg tablet 300 mg PO DAILY 05/05/19 [History Confirmed 04/25/21] levothyroxine 137 mcg capsule 137 mcg PO DAILY 05/05/19 [History Confirmed 04/25/21] TENS unit and electrodes combo pack #1 ea 04/18/20 [History Confirmed 04/25/21] magnesium oxide 500 mg capsule 500 mg PO DAILY 04/18/20 [History Confirmed 04/25/21] mecobalamin (vitamin B12) 1,000 mcg chewable tablet 100 mcg PO DAILY tab 04/18/20 [History Confirmed 04/25/21] omega-3 fatty acids 1,000 mg capsule 1,000 mg PO DAILY 04/18/20 [History Confirmed 04/25/21] calcium carb,cit ER 600 mg-vit D3 12.5 mcg (500 unit) tablet,ext.rel 1 tab PO DAILY tab 08/23/20 [History Confirmed 04/25/21] carbidopa 25 mg-levodopa 100 mg tablet 1 tab PO TID #270 tab 04/25/21 [Rx Confirmed 04/25/21] coenzyme Q10 100 mg capsule 100 mg PO DAILY 04/25/21 [History Confirmed 04/25/21] PFSH Medical History Acute gastroenteritis Anxiety Arthralgia Atypical mole B12 deficiency Back pain, lumbosacral Dysthymic disorder Encounter for screening mammogram for breast cancer Essential tremor Eustachian tube dysfunction Fatigue Fibromyalgia GERD (gastroesophageal reflux disease) Headache Hip pain History of atrial flutter History of dyspnea Hypercholesterolemia Hypertension Hypertensive heart disease without heart failure Hypothyroidism Other and unspecified hyperlipidemia Pain in thoracic spine Parkinsons disease Sessile colonic polyp Sleep apnea Thyromegaly Tremor Vitamin D deficiency Surgical History H/O thyroidectomy History of cholecystectomy History of parathyroidectomy History of partial hysterectomy Family History Mother Breast cancer CVA (cerebral vascular accident) Hypertension Myocardial infarction Epilepsy Father Parkinsons disease Hypertension Skin cancer Other Emotional problems High cholesterol Social History Smoking Status: Never smoker alcohol intake: current alcohol intake frequency: holidays/special occasions only substance use type: does not use caffeine: Yes HPI HPI Chief Complaint: F/U Parkinson's disease Details: Interim History: The patient returns for follow-up. She has a history of hypertension, hypercholesterolemia, vitamin B12 deficiency, vitamin D deficiency, hypothyroidism (s/p thyroidectomy for goiter), parathyroid nodules (s/p resection of parathyroid glands), and Parkinson's disease. She had seen a neurologist in 2019 and was diagnosed with Parkinson's disease at that time. Her parkinsonian symptoms began in early 2018 and manifested with a tremor in the hands and right leg. Her tremor in the hands was present at rest and with action. She also had slowing of her gait and a feeling of stiffness in her muscles. She did not tolerate ropinirole due to a side effect of blurred vision. She has been taking Sinemet 25/100mg TID since early 2018 and reports reduction of her tremor and improvement of her gait. She now only experiences tremors when she is very anxious or under emotional stress; these tremors occur primarily in her bilateral hands and seldom in her left leg. She satisfied with her current level of symptom control. She is tolerating the medication well. She denies any speech or swallowing difficulty. She denies having any headaches or vision change. She does not have any numbness or weakness. She does not have any history of neuroleptic use. She attends a Parkinson's-tailored physical fitness program twice weekly. Her occasional right-sided charley horse type neck pain which had previously occurred a few times per month has resolved. The neck pain was brief in duration, lasting only seconds, and was exacerbated by movement. She has some chronic intermittent low back pain which is not prominent. Her carotid ultrasound from 11/2019 revealed less than 50% stenosis of the right internal carotid artery and 50-69% stenosis of the left internal carotid artery. A repeat carotid ultrasound was completed last months, and the patient reports there were no changes identified. She sees a vascular surgeon, Dr. Avila, for management of her carotid stenosis. She does not have any history of symptomatic cerebrovascular disease and denies any new or recent symptoms suggestive of stroke. Her head MRI from 2016 showed minimal chronic small vessel ischemic disease. She did not tolerate various lipid-lowering agents. She takes aspirin 81mg daily. Physical Exam: General: Well-nourished, well-groomed, in no acute distress Neuro: The patient is awake and alert and responds appropriately; speech is fluent; language function is normal; no tremor is noted presently; marginal right wrist cogwheel rigidity is noted with distraction; no left wrist rigidity is noted; no rigidity is noted in the knees or ankles; gait is mildly slow but independent and steady Neck: No bruits Heart: Regular rate and rhythm Psych: Appropriate mood and normal affect; pleasant Supplemental Info Brain MRI 07/30/17 IMPRESSION: There are a limited number of small white matter hyperintensities, distributed throughout the deep white matter tracts of the cerebral hemispheres, nonspecific but most commonly seen with with mild chronic white matter ischemic changes. No acute intracranial abnormality or masses. Labs 08/05/17 CBC CMP: unremarkable Lipid Panel: Chol 235(H), LDL 150(H), otherwise unremarkable Folate 41.5 Labs 02/01/18 CMP: BUN/Creatine 9.5(L), Cl 108(H) otherwise unremarkable Vit D: 64 Labs 12/20/18 Lipid panel: unremarkable Lumbar spine x-ray 05/05/19 FINDINGS: Mild generalized osteopenia. Normal lumbar lordosis. There is no substantial scoliosis. There is a normal alignment of the vertebrae. Normal vertebral bodies and endplates. Minimal intervertebral disc space narrowing most marked at L5-S1 with vacuum phenomenon. Diffuse facet sclerosis. Vascular calcification. IMPRESSION: Osteopenia with mild lower lumbar spondylosis. Chest CTA 07/14/19 IMPRESSION: Normal CTA chest examination, without a demonstrated pulmonary embolism or arterial dissection. Labs 08/19/19 CMP: ATS 13(L) otherwise unremarkable TSH 0.59 Vit D 77.6 TXT- Blood Flow Screening 10/28/2019: Interpretation Summary: Mild to moderate disease was found in the carotid artery. RECOMMEND FOLLOW-UP WITH YOUR DOCTOR. Normal aortic ultrasound exam. The ankle/brachial index is normal(1.0 or greater). Carotid Duplex 11/16/19 Interpretation Summary Minimal smooth plaque at the proximal right internal carotid artery with less than 50% stenosis. <50% stenosis right external carotid. Irregular calcific plaque with shadowing at the proximal left internal carotid artery with 50 to 69% stenosis, noted more distally. <50% stenosis left external carotid Patent and antegrade bilateral vertebrals Labs 04/20/2020: CBC: Normal CMP: Alk phos 121 (H) Lipid Panel: cholesterol 209 (H) Vitamin B12: 784 (normal) Vitamin D: 86.7 (normal) TSH: Normal Labs (10/22/2020): BMP: Unremarkable TSH: Normal Vitamin D: Sufficient Coding Level of Care Code Off vis,est,level 4 Diagnoses Parkinson's disease G20 Cerebrovascular small vessel disease I67.9 Asymptomatic stenosis of left carotid artery I65.22 Assessment and Plan Assessment and Plan (1) Parkinson's disease: Status: Chronic (2) Cerebrovascular small vessel disease: Status: Chronic (3) Asymptomatic stenosis of left carotid artery: Status: Chronic Plan - Rani Rodriguez NP, VICE PRESIDENT OF DEVELOPMENT-C: The patient has mild Parkinson's disease. She has had slowing of her gait, tremor and rigidity. These symptoms have improved with the use of Sinemet and she is satisfied with her current level of symptom control. Sinemet 25/100 1 tablet 3 times daily will be continued. She participates in a Parkinson's-tailored physical fitness program twice weekly and is encouraged to continue this activity. She did not wish to pursue a head MRI. Her carotid ultrasound from November 2019 revealed less than 50% stenosis of the right internal carotid artery and 50-69% stenosis of the left internal carotid artery. A follow-up carotid ultrasound was completed November 2020 and she reports no change in findings. She did not tolerate various lipid-lowering agents. She takes aspirin 81mg daily and this will be continued. She does not have any history of symptomatic cerebrovascular disease (minimal chronic small vessel ischemic disease was noted on her head MRI from 2016). I will have her return for reassessment in 6 months. Plan Details Other Medications: Refilled: carbidopa-levodopa 25-100 mg 10am, 4pm, 10pm 1 TAB PO TID 270 tabs 2RF Additional Comments: Greater than 30 minutes were spent by me on today's visit. This time includes coordinating care, reviewing labs/records/history, interpretation of test results, and counseling patient/family. This also includes time spent with the patient for exam, treatment plan, and education as well as documenting clinical information in the electronic health record. Follow Up: 6 Months 04/25/21 3199 <Electronically signed by Rani Rodriguez NP VICE PRESIDENT OF DEVELOPMENT- C> Date Rani Chahal Signature: Date (if applicable) CC: VALENTIN Mueller Sushma Mueller [employer] Work Phone: Start: 12-20-2020 End: 12-20-2020 Comments: See Note; NOTES: [facility] [address] [place], [place] [address] OFFICE VISIT Date of Service: 12/20/20 MR#: [id number] Acct: [id number] Name: CARMEN GARCIA Selin Rep #: [id number] : 1950 Provider: VALENTIN carrasco Age/Sex: 70/F Location: [facility] [place]. Status: Signed Intake Vital Signs 12/20/20 BP 140/86 H 12/20/20 Blood Pressure Location Lt brachial 12/20/20 Position Standing 12/20/20 Pulse 80 12/20/20 Pulse Source Monitor 12/20/20 BP 138/86 H 12/20/20 Blood Pressure Location Lt brachial 12/20/20 Position Sitting 12/20/20 Respiration 15 12/20/20 Pulse 73 12/20/20 Pulse Source Monitor 12/20/20 Pulse Oximetry (%) 98 12/20/20 Oxygen Delivery Method room air Intake Visit Reasons: 4 M FU Chief Complaint: follow-up visit for Parkinson's disease Event Set Up Specialist Required: No Accompanied by: Self Is patient in pain?: No Allergies rosuvastatin [From Crestor] Allergy (Severe, Verified 12/20/20 13:07) Unknown ezetimibe [From Zetia] Allergy (Intermediate, Verified 12/20/20 13:07) Myalgia atorvastatin [From Lipitor] Allergy (Unknown, Verified 12/20/20 13:07) Unknown codeine Adverse Reaction (Intermediate, Verified 12/20/20 13:07) Chest pain ropinirole [From Requip] Adverse Reaction (Intermediate, Verified 12/20/20 13:07) Other Medications aspirin 81 mg tablet,delayed release 81 mg PO DAILY 05/05/19 [History Confirmed 12/20/20] cholecalciferol (vitamin D3) 1,250 mcg (50,000 unit) capsule 50,000 unit PO QWEEK 05/05/19 [History Confirmed 12/20/20] garlic 1,000 mg capsule 1,000 mg PO QPC PRN 05/05/19 [History Confirmed 12/20/20] irbesartan 300 mg tablet 300 mg PO DAILY 05/05/19 [History Confirmed 12/20/20] levothyroxine 137 mcg capsule 137 mcg PO DAILY 05/05/19 [History Confirmed 12/20/20] TENS unit and electrodes combo pack See Rx Instructions .ROUTE .MEDSUPPLY #1 ea 04/18/20 [History Confirmed 12/20/20] magnesium oxide 500 mg capsule 500 mg PO DAILY 04/18/20 [History Confirmed 12/20/20] mecobalamin (vitamin B12) 1,000 mcg chewable tablet 100 mcg PO DAILY tab 04/18/20 [History Confirmed 12/20/20] omega-3 fatty acids 1,000 mg capsule 1,000 mg PO DAILY 04/18/20 [History Confirmed 12/20/20] calcium carb,cit ER 600 mg calcium-vit D3 500 unit tablet,ext.release 1 tab PO DAILY tab 08/23/20 [History Confirmed 12/20/20] carbidopa 25 mg-levodopa 100 mg tablet 1 tab PO TID #270 tab 12/20/20 [Rx Confirmed 12/20/20] [facility] Medical History Acute gastroenteritis (Acute) Anxiety (Acute) Arthralgia (Acute) Atypical mole (Acute) B12 deficiency (Acute) Back pain, lumbosacral (Acute) Dysthymic disorder (Acute) Encounter for screening mammogram for breast cancer (Acute) Essential tremor (Acute) Eustachian tube dysfunction (Acute) Fatigue (Acute) Fibromyalgia (Acute) GERD (gastroesophageal reflux disease) (Acute) Headache (Acute) Hip pain (Acute) History of atrial flutter (Acute) History of dyspnea (Acute) Hypercholesterolemia (Acute) Hypertensive heart disease without heart failure (Acute) Hypothyroidism (Acute) Other and unspecified hyperlipidemia (Acute) Pain in thoracic spine (Acute) Parkinsons disease (Acute) Sessile colonic polyp (Acute) Sleep apnea (Acute) Thyromegaly (Acute) Tremor (Acute) Vitamin D deficiency (Acute) Hypertension (Chronic) Surgical History H/O thyroidectomy (Acute) History of cholecystectomy (Acute) History of parathyroidectomy (Acute) History of partial hysterectomy (Acute) Family History Mother Breast cancer CVA (cerebral vascular accident) Hypertension Myocardial infarction Epilepsy Father Parkinsons disease Hypertension Skin cancer Other Emotional problems High cholesterol Social History (Updated 12/20/20 @ 14:20 by Rani Rodriguez NP, VICE PRESIDENT OF DEVELOPMENT-C) Smoking Status: Never smoker alcohol intake: current alcohol intake frequency: holidays/special occasions only substance use type: does not use caffeine: Yes HPI HPI Chief Complaint: follow-up visit for Parkinson's disease Details: Interim History: The patient returns for follow-up. She has a history of hypertension, hypercholesterolemia, vitamin B12 deficiency, vitamin D deficiency and hypothyroidism. She had seen a neurologist in 2019 and was diagnosed with Parkinson's disease at that time. Her parkinsonian symptoms began in early 2018 and manifested with a tremor in the hands and right leg. Her tremor in the hands was present at rest and with action. She also had slowing of her gait and a feeling of stiffness in her muscles. She did not tolerate ropinirole due to a side effect of blurred vision. She has been taking Sinemet 25/100mg TID since early 2018 and reports reduction of her tremor and improvement of her gait. She now only experiences tremors when she is very anxious or under emotional stress; these tremors occur primarily in her bilateral hands and seldom in her right leg. She satisfied with her current level of symptom control. She is tolerating the medication well. She denies any speech or swallowing difficulty. She denies having any headaches or vision change. She does not have any numbness or weakness. She does not have any history of neuroleptic use. Her occasional right-sided charley horse type neck pain which had previously occurred a few times per month has resolved. The neck pain was brief in duration, lasting only seconds, and was exacerbated by movement. She has some chronic intermittent low back pain which is not prominent. Her carotid ultrasound from 11/2019 revealed less than 50% stenosis of the right internal carotid artery and 50-69% stenosis of the left internal carotid artery. A repeat carotid ultrasound was completed last months, though results are not presently available. She sees a vascular surgeon, Dr. Avila, for management of her carotid stenosis. She does not have any history of symptomatic cerebrovascular disease and denies any new or recent symptoms suggestive of stroke. Her head MRI from 2016 showed minimal chronic small vessel ischemic disease. She did not tolerate various lipid-lowering agents. She takes aspirin 81 mg daily. She had a thyroidectomy for treatment of the goiter and also had parathyroid nodules for which she had resection of 3 of 4 of her parathyroid glands. Physical Exam: Neuro: The patient is awake and alert and responds appropriately; speech is fluent; no tremor is noted presently; marginal right wrist rigidity is noted with distraction; no left wrist rigidity is noted; gait is mildly slow Neck: No bruits Heart: Regular rate and rhythm ROS Const Constitutional: Positive for weight change (weight loss) and other (13 point ROS negative except otherwise noted above); no fever(s) Resp Respiratory: Positive for shortness of breath sob: SOB with activity Cardio Cardiology: Positive for shortness of breath; no chest pain at rest or chest pain with exertion Gastro GI: No change in bowel habits, diarrhea, nausea/dyspepsia or vomiting Genitourinary-Female: No difficulty urinating, urinary incontinence, urinary frequency, urinary urgency, urinary hesitancy or urinary retention Musc Musculoskeletal: Positive for back pain and muscle cramps Skin Skin: No rash Neuro Neurology: Positive for restless legs Psych Psychiatric: No anxiety, No depression Supplemental Info Brain MRI 07/30/17 IMPRESSION: There are a limited number of small white matter hyperintensities, distributed throughout the deep white matter tracts of the cerebral hemispheres, nonspecific but most commonly seen with with mild chronic white matter ischemic changes. No acute intracranial abnormality or masses. Labs 08/05/17 CBC CMP: unremarkable Lipid Panel: Chol 235(H), LDL 150(H), otherwise unremarkable Folate 41.5 Labs 02/01/18 CMP: BUN/Creatine 9.5(L), Cl 108(H) otherwise unremarkable Vit D: 64 Labs 12/20/18 Lipid panel: unremarkable Lumbar spine x-ray 05/05/19 FINDINGS: Mild generalized osteopenia. Normal lumbar lordosis. There is no substantial scoliosis. There is a normal alignment of the vertebrae. Normal vertebral bodies and endplates. Minimal intervertebral disc space narrowing most marked at L5-S1 with vacuum phenomenon. Diffuse facet sclerosis. Vascular calcification. IMPRESSION: Osteopenia with mild lower lumbar spondylosis. Chest CTA 07/14/19 IMPRESSION: Normal CTA chest examination, without a demonstrated pulmonary embolism or arterial dissection. Labs 08/19/19 CMP: ATS 13(L) otherwise unremarkable TSH 0.59 Vit D 77.6 TXT- Blood Flow Screening 10/28/2019: Interpretation Summary: Mild to moderate disease was found in the carotid artery. RECOMMEND FOLLOW-UP WITH YOUR DOCTOR. Normal aortic ultrasound exam. The ankle/brachial index is normal(1.0 or greater). Carotid Duplex 11/16/19 Interpretation Summary Minimal smooth plaque at the proximal right internal carotid artery with less than 50% stenosis. <50% stenosis right external carotid. Irregular calcific plaque with shadowing at the proximal left internal carotid artery with 50 to 69% stenosis, noted more distally. <50% stenosis left external carotid Patent and antegrade bilateral vertebrals Labs 04/20/2020: CBC: Normal CMP: Alk phos 121 (H) Lipid Panel: cholesterol 209 (H) Vitamin B12: 784 (normal) Vitamin D: 86.7 (normal) TSH: Normal Labs (10/22/2020): BMP: Unremarkable TSH: Normal Vitamin D: Sufficient Assessment Plan Problems 1. Parkinson's disease G20 2. Cerebrovascular small vessel disease I67.9 3. Asymptomatic stenosis of left carotid artery I65.22 Plan The patient has mild Parkinson's disease. She has had slowing of her gait, tremor and rigidity. These symptoms have improved with the use of Sinemet and she is satisfied with her current level of symptom control. Sinemet 25/100 1 tablet 3 times daily will be continued. She did not wish to pursue a head MRI. Her carotid ultrasound from November 2019 revealed less than 50% stenosis of the right internal carotid artery and 50-69% stenosis of the left internal carotid artery. A follow-up carotid ultrasound was completed November 2020 and results will be requested from [facility]. She did not tolerate various lipid-lowering agents. She takes aspirin 81 mg daily and this will be continued. She does not have any history of symptomatic cerebrovascular disease (minimal chronic small vessel ischemic disease was noted on her head MRI from 2017). I will have her return for reassessment in 4 months. Medications Refilled: carbidopa-levodopa 25-100 mg 10am, 4pm, 10pm 1 tab PO TID 270 tabs 1RF Coding Level of Care Code Off vis,est,level 4 Diagnoses Parkinson's disease G20 Cerebrovascular small vessel disease I67.9 Asymptomatic stenosis of left carotid artery I65.22 12/20/20 1420 <Electronically signed by Rani Rodriguez NP VICE PRESIDENT OF DEVELOPMENT- C> Date Rani Rodriguez NP VICE PRESIDENT OF DEVELOPMENT-C Cosigner Signature: Date (if applicable) CC: VICE PRESIDENT OF DEVELOPMENT-C Sushma Mueller [employer] Work Phone: Start: 08-23-2020 End: 08-27-2020 Neurology Visit Report Comments: See Note; NOTES: [facility] [address] [place] [address] OFFICE VISIT Date of Service: 08/23/20 MR#: [id number] Acct: [id number] Name: CARMEN GARCIA Rep #: [id number] : 1950 Provider: Dr. Edvin holland MD Age/Sex: 70/F Location: [facility] [place]. Status: Signed Intake Vital Signs 08/23/20 BP 142/78 H 08/23/20 Blood Pressure Location Lt brachial 08/23/20 Position Sitting 08/23/20 BP 150/80 H 08/23/20 Blood Pressure Location Lt brachial 08/23/20 Position Sitting 08/23/20 Pulse 80 08/23/20 Pulse Source Monitor 08/23/20 Pulse Oximetry (%) 99 08/23/20 Oxygen Delivery Method room air Intake Visit Reasons: 4 M FU Chief Complaint: follow-up visit for Parkinson's disease Accompanied by: Self Is patient in pain?: No Allergies rosuvastatin [From Crestor] Allergy (Severe, Verified 08/23/20 13:28) Unknown ezetimibe [From Zetia] Allergy (Intermediate, Verified 08/23/20 13:28) Myalgia atorvastatin [From Lipitor] Allergy (Unknown, Verified 08/23/20 13:28) Unknown codeine Adverse Reaction (Intermediate, Verified 08/23/20 13:28) Chest pain ropinirole [From Requip] Adverse Reaction (Intermediate, Verified 08/23/20 13:28) Other Medications aspirin 81 mg tablet,delayed release 81 mg PO DAILY 05/05/19 [History Confirmed 08/23/20] cholecalciferol (vitamin D3) 1,250 mcg (50,000 unit) capsule 50,000 unit PO QWEEK 05/05/19 [History Confirmed 08/23/20] garlic 1,000 mg capsule 1,000 mg PO QPC PRN 05/05/19 [History Confirmed 08/23/20] irbesartan 300 mg tablet 300 mg PO DAILY 05/05/19 [History Confirmed 08/23/20] levothyroxine 137 mcg capsule 137 mcg PO DAILY 05/05/19 [History Confirmed 08/23/20] TENS unit and electrodes combo pack See Rx Instructions .ROUTE .MEDSUPPLY #1 ea 04/18/20 [History Confirmed 08/23/20] magnesium oxide 500 mg capsule 500 mg PO DAILY 04/18/20 [History Confirmed 08/23/20] mecobalamin (vitamin B12) 1,000 mcg chewable tablet 100 mcg PO DAILY tab 04/18/20 [History Confirmed 08/23/20] omega-3 fatty acids 1,000 mg capsule 1,000 mg PO DAILY 04/18/20 [History Confirmed 08/23/20] carbidopa 25 mg-levodopa 100 mg tablet 1 tab PO TID #270 tab 04/19/20 [Rx Confirmed 08/23/20] calcium carb,cit ER 600 mg calcium-vit D3 500 unit tablet,ext.release 1 tab PO DAILY tab 08/23/20 [History] [facility] Medical History Acute gastroenteritis (Acute) Anxiety (Acute) Arthralgia (Acute) Atypical mole (Acute) B12 deficiency (Acute) Back pain, lumbosacral (Acute) Dysthymic disorder (Acute) Encounter for screening mammogram for breast cancer (Acute) Essential tremor (Acute) Eustachian tube dysfunction (Acute) Fatigue (Acute) Fibromyalgia (Acute) GERD (gastroesophageal reflux disease) (Acute) Headache (Acute) Hip pain (Acute) History of atrial flutter (Acute) History of dyspnea (Acute) Hypercholesterolemia (Acute) Hypertensive heart disease without heart failure (Acute) Hypothyroidism (Acute) Other and unspecified hyperlipidemia (Acute) Pain in thoracic spine (Acute) Parkinsons disease (Acute) Sessile colonic polyp (Acute) Sleep apnea (Acute) Thyromegaly (Acute) Tremor (Acute) Vitamin D deficiency (Acute) Hypertension (Chronic) Surgical History H/O thyroidectomy (Acute) History of cholecystectomy (Acute) History of parathyroidectomy (Acute) History of partial hysterectomy (Acute) Family History Mother Breast cancer CVA (cerebral vascular accident) Hypertension Myocardial infarction Epilepsy Father Parkinsons disease Hypertension Skin cancer Other Emotional problems High cholesterol Social History (Updated 08/23/20 @ 16:[address] Edvin Armijo MD) Smoking Status: Never smoker alcohol intake: current alcohol intake frequency: holidays/special occasions only substance use type: does not use caffeine: Yes HPI HPI Chief Complaint: follow-up visit for Parkinson's disease Details: This patient was evaluated by VALENTIN Lake under the supervision of Dr. Armijo. Interim History: The patient returns for a follow-up visit. She has a history of hypertension, hypercholesterolemia, vitamin B12 deficiency, vitamin D deficiency and hypothyroidism. She had seen a neurologist in 2019 and was diagnosed with Parkinson's disease at that time. Her parkinsonian symptoms began in early 2018 and manifested with a tremor in the hands and right leg. Her tremor in the hands was present at rest and with action. She also had slowing of her gait and a feeling of stiffness in her muscles. She did not tolerate ropinirole due to a side effect of blurred vision. She has been taking Sinemet 25/100mg TID since early 2018 and reports reduction of her tremor and improvement of her gait. She now only experiences tremors when she is very anxious or under emotional stress; these tremors occur primarily in her bilateral hands and seldom in her right leg. She satisfied with her current level of symptom control. She is tolerating the medication well. She denies any speech or swallowing difficulty. She denies having any headaches or vision change. She does not have any numbness or weakness. She does not have any history of neuroleptic use. She reports occasional right sided neck pain which occurs a few times per month. She describes her neck pain as a charley horse . The neck pain is brief in duration, lasting only seconds, and is exacerbated by movement. She has some chronic intermittent low back pain which is not prominent. Her carotid ultrasound from 11/2019 reveals less than 50% stenosis of the right internal carotid artery and 50-69% stenosis of the left internal carotid artery. She does not have any history of symptomatic cerebrovascular disease. Her head MRI from 2016 showed minimal chronic small vessel ischemic disease. She did not tolerate various lipid-lowering agents. She takes aspirin 81 mg daily. She had a thyroidectomy for treatment of the goiter and also had parathyroid nodules for which she had resection of 3 of 4 of her parathyroid glands. Physical Exam: Neuro: The patient is awake and alert and responds appropriately; speech is fluent; no tremor is noted presently; mild to moderate right wrist rigidity is noted with distraction; minimal left wrist rigidity is noted with distraction; gait is mildly slow; gait is slightly stiff legged Neck: No bruits Heart: Regular rate and rhythm ROS Const Constitutional: Positive for weight change (weight loss) and other (13 point ROS negative except otherwise noted above); no fever(s) Resp Respiratory: Positive for shortness of breath sob: SOB with activity Cardio Cardiology: Positive for shortness of breath; no chest pain at rest or chest pain with exertion Gastro GI: No change in bowel habits, diarrhea, nausea/dyspepsia or vomiting Genitourinary-Female: No difficulty urinating, urinary incontinence, urinary frequency, urinary urgency, urinary hesitancy or urinary retention Musc Musculoskeletal: Positive for back pain and muscle cramps Skin Skin: No rash Neuro Neurology: Positive for restless legs Psych Psychiatric: No anxiety, No depression Supplemental Info Brain MRI 07/30/17 IMPRESSION: There are a limited number of small white matter hyperintensities, distributed throughout the deep white matter tracts of the cerebral hemispheres, nonspecific but most commonly seen with with mild chronic white matter ischemic changes. No acute intracranial abnormality or masses. Labs 08/05/17 CBC CMP: unremarkable Lipid Panel: Chol 235(H), LDL 150(H), otherwise unremarkable Folate 41.5 Labs 02/01/18 CMP: BUN/Creatine 9.5(L), Cl 108(H) otherwise unremarkable Vit D: 64 Labs 12/20/18 Lipid panel: unremarkable Lumbar spine x-ray 05/05/19 FINDINGS: Mild generalized osteopenia. Normal lumbar lordosis. There is no substantial scoliosis. There is a normal alignment of the vertebrae. Normal vertebral bodies and endplates. Minimal intervertebral disc space narrowing most marked at L5-S1 with vacuum phenomenon. Diffuse facet sclerosis. Vascular calcification. IMPRESSION: Osteopenia with mild lower lumbar spondylosis. Chest CTA 07/14/19 IMPRESSION: Normal CTA chest examination, without a demonstrated pulmonary embolism or arterial dissection. Labs 08/19/19 CMP: ATS 13(L) otherwise unremarkable TSH 0.59 Vit D 77.6 TXT- Blood Flow Screening 10/28/2019: Interpretation Summary: Mild to moderate disease was found in the carotid artery. RECOMMEND FOLLOW-UP WITH YOUR DOCTOR. Normal aortic ultrasound exam. The ankle/brachial index is normal(1.0 or greater). Carotid Duplex 11/16/19 Interpretation Summary Minimal smooth plaque at the proximal right internal carotid artery with less than 50% stenosis. <50% stenosis right external carotid. Irregular calcific plaque with shadowing at the proximal left internal carotid artery with 50 to 69% stenosis, noted more distally. <50% stenosis left external carotid Patent and antegrade bilateral vertebrals Labs 04/20/2020: CBC: Normal CMP: Alk phos 121 (H) Lipid Panel: cholesterol 209 (H) Vitamin B12: 784 (normal) Vitamin D: 86.7 (normal) TSH: Normal Assessment Plan Problems 1. Parkinson's disease G20 2. Cerebrovascular small vessel disease I67.9 3. Asymptomatic stenosis of left carotid artery I65.22 Plan - Dr. Edvin Armijo MD The patient has mild Parkinson's disease. She has had slowing of her gait, tremor and rigidity. These symptoms have improved with the use of Sinemet and she is satisfied with her current level of symptom control. Sinemet 25/100 1 tablet 3 times daily will be continued. She did not wish to pursue a head MRI. Her carotid ultrasound from November 2019 reveals less than 50% stenosis of the right internal carotid artery and 50-69% stenosis of the left internal carotid artery. A follow-up carotid ultrasound will be checked in November 2020. She did not tolerate various lipid-lowering agents. She takes aspirin 81 mg daily. She does not have any history of symptomatic cerebrovascular disease (minimal chronic small vessel ischemic disease was noted on her head MRI from 2016). She has mild momentary episodes of musculoskeletal neck pain that occurs a few times per month; she did not wish to take any medication for this. I will have her return for reassessment in 4 months. Orders Orders: Carotid Duplex Ultrasound 11/17/20 I65.22 Plan Detail Follow Up 4 Months Coding Level of Care Code Off vis,est,level 3 Diagnoses Parkinson's disease G20 Cerebrovascular small vessel disease I67.9 Asymptomatic stenosis of left carotid artery I65.22 ?Laterality: left 08/23/20 1649 <Electronically signed by Edvin Armijo MD> Date Edvin Armijo MD 08/27/20 0856<Electronically signed by Rani Rodriguez NP, NP-C> Cosigner Signature: Date (if applicable) Rani Rodriguez NP VICE PRESIDENT OF DEVELOPMENT-C CC: Sushma Mueller Start: 05-08-2020 End: 05-08-2020 SCREEN MAMM (CAD) W/ROBERTO BILAT Comments: See Note; NOTES: [facility] Imaging Services [address] [place] [address] SCREEN MAMM (CAD) W/ROBERTO BILAT MR#: [id number] Acct: [id number] Name: CARMEN GARCIA Rep #: [id number] : 1950 F 70 From: Jorge durham MD PCP: VALENTIN Shukla Status: [facility] Study: SCREEN MAMM (CAD) W/ROBERTO BILAT Date of Exam: 0 05/08/20 Exam# [id number] Ordering Dr: Sushma Mueller MAMMOGRAPHY - BILATERAL SCREENING REASON FOR EXAM: Female, 70 years old. Routine annual screening examination. PERTINENT HISTORY: Mother with breast cancer. Aunts with breast cancer. TECHNIQUE: Digital bilateral breast roberto (3D mammographic acquisition) in the CC and MLO projections. 2-D mediolateral oblique (MLO) and craniocaudad (CC) views of both breasts were obtained. CAD: Full Field Digital Mammography with Computer Added Detection was performed. COMPARISON: Comparison is made with prior examination dated 05-06-19 and 05-05-18. FINDINGS: Breast Composition: There are scattered areas of fibroglandular density. There are no dominant masses or suspicious calcifications. No other significant abnormalities are identified. There has been no significant change since the prior study. BI/SCREEN MAMM (CAD) W/ROBERTO BILAT IMPRESSION: Stable bilateral screening mammogram. Yearly follow-up mammogram recommended. (A) ASSESSMENT CATEGORY: BIRADS Category 2: Benign. A letter regarding these results will be sent to the patient by the facility within 30 days. Approximately 10% of breast cancers are not detected by mammography. A normal mammogram should not delay biopsy of a clinically suspicious abnormality. [id number] Electronically Signed: Jorge Johnson, at 13:46 EDT , Service support , CC: VALENTIN Mueller Machine Bobbin Winder: Signed Sushma Mueller Work Phone: Start: 04-19-2020 End: 04-19-2020 Neurology Visit Report Comments: See Note; NOTES: [facility] [address] [facility] [place] [address] OFFICE VISIT Date of Service: 04/19/20 MR#: [id number] Acct: [id number] Name: CARMEN GARCIA Rep #: [id number] : 1950 Provider: Dr. Edvin holland MD Age/Sex: 70/F Location: [facility] Status: Signed Intake Vital Signs 04/19/20 BP 130/72 H 04/19/20 Blood Pressure Location Lt brachial 04/19/20 Position Standing 04/19/20 Height 5 ft 3 in 04/19/20 Weight: 207 lb 04/19/20 BMI 36.6 04/19/20 BP 142/76 H 04/19/20 Blood Pressure Location Lt brachial 04/19/20 Position Sitting 04/19/20 Respiration 17 04/19/20 Pulse 77 04/19/20 Pulse Source Monitor 04/19/20 Temp 96.5 F L 04/19/20 Temp Source Temporal 04/19/20 Pulse Oximetry (%) 96 04/19/20 Oxygen Delivery Method room air Intake Visit Reasons: NEW PATIENT APT Event Set Up Specialist Required: No Accompanied by: Self Is patient in pain?: No Allergies rosuvastatin [From Crestor] Allergy (Severe, Verified 04/18/20 09:25) Unknown ezetimibe [From Zetia] Allergy (Intermediate, Verified 04/18/20 09:25) Myalgia atorvastatin [From Lipitor] Allergy (Unknown, Verified 04/18/20 09:25) Unknown codeine Adverse Reaction (Intermediate, Verified 04/18/20 09:25) Chest pain ropinirole [From Requip] Adverse Reaction (Intermediate, Verified 04/19/20 11:19) Other Medications aspirin 81 mg tablet,delayed release 81 mg PO DAILY 05/05/19 [History Confirmed 04/18/20] cholecalciferol (vitamin D3) 1,250 mcg (50,000 unit) capsule 50,000 unit PO QWEEK 05/05/19 [History Confirmed 04/18/20] garlic 1,000 mg capsule 1,000 mg PO QPC PRN 05/05/19 [History Confirmed 04/18/20] irbesartan 300 mg tablet 300 mg PO DAILY 05/05/19 [History Confirmed 04/18/20] levothyroxine 137 mcg capsule 137 mcg PO DAILY 07/25/19 [History Confirmed 04/18/20] TENS unit and electrodes See Rx Instructions .ROUTE .MEDSUPPLY #1 ea 04/18/20 [History Confirmed 04/18/20] alprazolam 0.25 mg tablet 0.25 mg PO Q12H PRN tab 04/18/20 [History Confirmed 04/18/20] calcium carbonate 600 mg calcium (1,500 mg) tablet 600 mg PO DAILY 04/18/20 [History Confirmed 04/18/20] hydrochlorothiazide 12.5 mg capsule 12.5 mg PO DAILY 04/18/20 [History Confirmed 04/18/20] magnesium oxide 500 mg capsule 500 mg PO DAILY 04/18/20 [History Confirmed 04/18/20] mecobalamin (vitamin B12) 1,000 mcg chewable tablet 100 mcg PO DAILY tab 04/18/20 [History Confirmed 04/18/20] omega-3 fatty acids 1,000 mg capsule 1,000 mg PO DAILY 04/18/20 [History Confirmed 04/18/20] carbidopa 25 mg-levodopa 100 mg tablet 1 tab PO TID #270 tab 04/19/20 [Rx Confirmed 04/19/20] Is last menstrual period known: No Post menopausal: Yes Patient : No PFSH Medical History Acute gastroenteritis (Acute) Anxiety (Acute) Arthralgia (Acute) Atypical mole (Acute) B12 deficiency (Acute) Back pain, lumbosacral (Acute) Dysthymic disorder (Acute) Encounter for screening mammogram for breast cancer (Acute) Essential tremor (Acute) Eustachian tube dysfunction (Acute) Fatigue (Acute) Fibromyalgia (Acute) GERD (gastroesophageal reflux disease) (Acute) Headache (Acute) Hip pain (Acute) History of atrial flutter (Acute) History of dyspnea (Acute) Hypercholesterolemia (Acute) Hypertensive heart disease without heart failure (Acute) Hypothyroidism (Acute) Other and unspecified hyperlipidemia (Acute) Pain in thoracic spine (Acute) Parkinsons disease (Acute) Sessile colonic polyp (Acute) Sleep apnea (Acute) Thyromegaly (Acute) Tremor (Acute) Vitamin D deficiency (Acute) Hypertension (Chronic) Surgical History (Updated 04/19/20 @ 11:17 by Mary White) H/O thyroidectomy (Acute) History of cholecystectomy (Acute) History of parathyroidectomy (Acute) History of partial hysterectomy (Acute) Family History (Updated 04/19/20 @ 11:20 by Mary White) Mother Breast cancer CVA (cerebral vascular accident) Hypertension Myocardial infarction Epilepsy Father Parkinsons disease Hypertension Skin cancer Other Emotional problems High cholesterol Social History (Updated 04/19/20 @ 18:[address] Edvin Armijo MD) Smoking Status: Never smoker alcohol intake: current alcohol intake frequency: holidays/special occasions only substance use type: does not use caffeine: Yes HPI HPI Details: History: The patient is a 70-year-old right-handed woman with a past medical history of hypertension, hypercholesterolemia, vitamin B12 deficiency, vitamin D deficiency and hypothyroidism who presents for evaluation of her Parkinson's disease. She had seen a neurologist in 2019 and was diagnosed with Parkinson's disease at that time. Her parkinsonian symptoms began earlier in 2019 and manifested with a tremor in the hands and right leg. Her tremor in the hands is present at rest and with action. She has also had slowing of her gait and a feeling of stiffness in her muscles. She did not tolerate ropinirole due to a side effect of blurred vision. She has been taking Sinemet and reports reduction of her tremor and improvement of her gait and is satisfied with her current level of symptom control. She is tolerating the medication well. She denies any speech or swallowing difficulty. She denies having any headaches or vision change. She does not have any numbness or weakness. She does not have any history of neuroleptic use. Her tremor worsens when she is anxious. She denies having any neck pain. She has some low back pain. She did not tolerate various lipid-lowering agents. She takes aspirin 81 mg daily. Past medical History: As above. There is no history of diabetes mellitus, heart disease, lung disease, stroke, seizure, cancer or renal disease. She had a thyroidectomy for treatment of the goiter and also had parathyroid nodules for which she had resection of 3 of 4 of her parathyroid glands. Family History: The patient's father had Parkinson's disease. The patient's mother had a stroke and seizures. The patient's aunt had a cerebral aneurysm. Social History: The patient does not smoke tobacco. There is no history of alcohol or illicit drug use. Review of Systems: As above. The patient has not had any recent fever, rash, chest pain, shortness of breath, gastrointestinal problems or urinary problems. The patient has gained some weight recently. She has mild depression and mild anxiety. Physical Exam: General: Well-developed, well-nourished female in no acute distress. Neuro: The patient is awake and alert and responds appropriately; speech is fluent; language function is within normal limits Cranial nerves: PERRL, 3mm bilaterally; EOMI; visual baeza are full; visual acuity is 20/25 bilaterally; face is symmetrical; tongue is midline; there are no deficits to pinprick Cerebellar system: No nystagmus or dysmetria Deep tendon reflexes: +1 at the knees and ankles and absent at the brachioradialis bilaterally, biceps bilaterally and triceps bilaterally; plantar responses are upward on the right and equivocal on the left Motor: Strength 5/5 in the biceps bilaterally, abductor pollicis brevis muscles bilaterally, first dorsal interosseous muscles bilaterally, quadriceps bilaterally and foot dorsiflexors bilaterally; no drift; a mild intermittent fine right hand tremor is noted at rest; moderate bilateral wrist rigidity is noted with distraction; no rigidity is noted in the lower extremities Sensory: There are no deficits to soft touch; decreased vibration is noted in the right foot Gait: Mildly slow; decreased armswing is noted bilaterally HEENT: Normocephalic; atraumatic; tympanic membranes are clear Neck: No bruits Heart: Regular rate and rhythm Extremities: No cyanosis or edema ROS Const Constitutional: Positive for weight change (weight loss) and other (13 point ROS negative except otherwise noted above); no fever(s) Resp Respiratory: Positive for shortness of breath sob: SOB with activity Cardio Cardiology: Positive for shortness of breath; no chest pain at rest or chest pain with exertion Gastro GI: No change in bowel habits, diarrhea, nausea/dyspepsia or vomiting Genitourinary-Female: No difficulty urinating, urinary incontinence, urinary frequency, urinary urgency, urinary hesitancy or urinary retention Musc Musculoskeletal: Positive for back pain and muscle cramps Skin Skin: No rash Neuro Neurology: Positive for restless legs Psych Psychiatric: No anxiety, No depression Supplemental Info Brain MRI 07/30/17 IMPRESSION: There are a limited number of small white matter hyperintensities, distributed throughout the deep white matter tracts of the cerebral hemispheres, nonspecific but most commonly seen with with mild chronic white matter ischemic changes. No acute intracranial abnormality or masses. Labs 08/05/17 CBC CMP: unremarkable Lipid Panel: Chol 235(H), LDL 150(H), otherwise unremarkable Folate 41.5 Labs 02/01/18 CMP: BUN/Creatine 9.5(L), Cl 108(H) otherwise unremarkable Vit D: 64 Labs 12/20/18 Lipid panel: unremarkable Lumbar spine x-ray 05/05/19 FINDINGS: Mild generalized osteopenia. Normal lumbar lordosis. There is no substantial scoliosis. There is a normal alignment of the vertebrae. Normal vertebral bodies and endplates. Minimal intervertebral disc space narrowing most marked at L5-S1 with vacuum phenomenon. Diffuse facet sclerosis. Vascular calcification. IMPRESSION: Osteopenia with mild lower lumbar spondylosis. Chest CTA 07/14/19 IMPRESSION: Normal CTA chest examination, without a demonstrated pulmonary embolism or arterial dissection. Labs 08/19/19 CMP: ATS 13(L) otherwise unremarkable TSH 0.59 Vit D 77.6 TXT- Blood Flow Screening Interpretation Summary: Mild to moderate disease was found in the carotid artery. RECOMMEND FOLLOW-UP WITH YOUR DOCTOR. Normal aortic ultrasound exam. The ankle/brachial index is normal(1.0 or greater). Carotid Duplex 11/16/19 Interpretation Summary Minimal smooth plaque at the proximal right internal carotid artery with less than 50% stenosis. <50% stenosis right external carotid. Irregular calcific plaque with shadowing at the proximal left internal carotid artery with 50 to 69% stenosis, noted more distally. <50% stenosis left external carotid Patent and antegrade bilateral vertebrals Assessment Plan Problems 1. Parkinson's disease G20 2. Cerebrovascular small vessel disease I67.9 Plan The patient has mild Parkinson's disease. She has had slowing of her gait, tremor and rigidity. These symptoms have improved with the use of Sinemet and she is satisfied with her current level of symptom control. Sinemet 25/100 1 tablet 3 times daily will be continued. She will be evaluated further with a head MRI. Her carotid ultrasound from November 2019 reveals less than 50% stenosis of the right internal carotid artery and 50-69% stenosis of the left internal carotid artery. She did not tolerate various lipid-lowering agents. She takes aspirin 81 mg daily. She does not have any history of symptomatic cerebrovascular disease (minimal chronic small vessel ischemic disease was noted on her head MRI from 2016). A CBC, CMP and TSH will be checked. I will have her return for reassessment in 4 months. Orders Orders: CBC-Complete Blood Cnt No Diff Today G20 Medications New: carbidopa-levodopa 25-100 mg 10am, 4pm, 10pm 1 tab PO TID 270 tabs 1RF Plan Detail Follow Up 4 Months Coding Level of Care Code Off vis,new,level 4 Diagnoses Parkinson's disease G20 Cerebrovascular small vessel disease I67.9 04/19/20 1847 <Electronically signed by Edvin Armijo MD> Date Edvin Armijo MD Cosigner Signature: Date (if applicable) CC: VALENTIN Mueller Start: 11-16-2019 End: 11-16-2019 Carotid Duplex Ultrasound Comments: See Note; NOTES: [facility] [address] [place] [id number] Carotid Duplex Ultrasound 11/16/19 0944 MR#: [id number] Acct: [id number] Name: CARMEN GARCIA Rep #: [id number] : 1950 69 From: Alan Archer MD Attending Dr: VALENTIN Shukla Status: REG CLI Ordering Dr: Sushma Mueller Date: 11/16/19 Location: [facility] Sex: F C Admitted: Reason For Study: ABNL RAD FINDINGS Rt. Velocities/BP Lt. Velocities/BP Prox CCA 96.0/20.3 cm/sec. Prox CCA 116.7/23.6 cm/sec. Mid CCA 114.2/24.3 cm/sec. Mid CCA 107.6/27.2 cm/sec. Dist CCA 92.1/25.6 cm/sec. Dist CCA 91.1/19.9 cm/sec. Prox ICA 115.4/25.9 cm/sec. Prox ICA 76.4/17.4 cm/sec. Mid ICA 111.8/38.7 cm/sec. Mid ICA 109.4/27.2 cm/sec. Dist ICA 114.9/29.0 cm/sec. Dist ICA 164.4/45.9 cm/sec. 115.4/114.2=1.0. Lt. ICA/CCA = 164.4/107.6=1.5. Prox ECA 170.3/16.7 cm/sec. Prox ECA 125.8/7.1 cm/sec. Rt. Vert. 71.1/12.2 cm/sec. Lt. Vert. 49.0/13.1 cm/sec. Right Extracranial There is intimal thickening but no significant atherosclerotic plaque noted in the right common carotid artery. There is intimal thickening but no significant atherosclerotic plaque noted in the right internal carotid artery. There is heterogeneous, smooth atherosclerotic plaque noted in the right external carotid artery. Antegrade flow is noted in the right vertebral artery. There is heterogeneous, irregular atherosclerotic plaque noted in the right bulb. Left Extracranial There is homogeneous, smooth atherosclerotic plaque noted in the left common carotid artery. There is intimal thickening but no significant atherosclerotic plaque noted in the left internal carotid artery. The tortuous nature of the left DISTAL internal carotid artery may result in flow velocities overestimating the degree of stenosis. There is no significant atherosclerotic plaque noted in the left external carotid artery. Antegrade flow is noted in the left vertebral artery. There is heterogeneous, irregular atherosclerotic plaque noted in the left bulb. Interpretation Summary Minimal smooth plaque at the proximal right internal carotid artery with less than 50% stenosis. <50% stenosis right external carotid. Irregular calcific plaque with shadowing at the proximal left internal carotid artery with 50 to 69% stenosis, noted more distally. <50% stenosis left external carotid Patent and antegrade bilateral vertebrals Ordering Physician: Sushma Mueller Referring Physician: Sushma Mueller Performed By: Jessica Guillen, RDCS, RVT 11/16/191516 Date Alan Archer MD CC: VICE PRESIDENT OF DEVELOPMENT-C Sushma Mueller Date Dictated: 11/16/19 0944 Date Transcribed: 11/16/191516 Machine Bobbin Winder: Signed Sushma Mueller Work Phone: Start: 10-29-2019 End: 11-02-2019 TXT - Blood Flow Screening Comments: See Note; NOTES: [facility] [place] [address] 10/28/19 0832 MR#: [id number] Acct: [id number] Name: CARMEN GARCIA Rep #: [id number] : 1950 69 From: Bright Padilla MD Attending Dr: Self Referred Status: REG REF Ordering Dr: Date: 10/29/19 Location: [facility] Sex: F C Admitted: Reason For Study: Blood Flow Screening Carotid Duplex Ultrasound Abdominal Aorta The right maximum ICA velocity is 106/38 cm/s. The maximal outside diameter of the proximal aorta The right ECA velocity is greater than 125 cm/s. measures 1.43cm x 1.54 cm in the cross-sectional There is significant plaque formation noted on theaxis. right side. The maximal outside diameter of the proximal aorta The left maximum ICA velocity is 126/35 cm/s. measures 1.39 cm in the longitudinal axis. The left ECA velocity is less than 125 cm/s. There is significant plaque formation noted on the left side. Ankle Brachial Index The right ankle/ brachial index is 1.10. The left ankle/ brachial index is 1.14. Medical History and Assessment The client presents with a history of high blood pressure. The heart rate is 80 beats per minute. The heart rhythm is regular. The right blood pressure is 138/88. The left blood pressure is 140/78. Interpretation Summary Mild to moderate disease was found in the carotid artery. RECOMMEND FOLLOW-UP WITH YOUR DOCTOR. Normal aortic ultrasound exam. The ankle/brachial index is normal (1.0 or greater). Performed By: Mary Mclean, [place], RVT 10/29/19 1012 Date Bright Padilla MD CC: VICE PRESIDENT OF DEVELOPMENT-C Sushma Mueller; Self Referred Date Dictated: 10/28/19 0832 Date Transcribed: 10/29/19 1012 Machine Bobbin Winder: Signed Sushma Mueller Start: 10-26-2019 End: 10-26-[address] w/CCTA Comments: See Note; NOTES: [facility] Imaging Services [address] [place] [address] w/CCTA MR#: [id number] Acct: [id number] Name: CARMNE GARCIA Rep #: [id number] : 1950 F 69 From: Michael Bauer MD PCP: VALENTIN Shukla Status: REG CLI Study: Limited Chest CT w/CCTA Date of Exam: 10/26/19 Exam# [id number] Ordering Dr: Sushma Mueller STUDY: CARDIAC CALCIUM SCORING - CT CHEST REASON FOR EXAM: Female, 69 years old. CALCIUM SCREENING RADIATION DOSAGE (If Supplied By Facility): CTDIvol = ( 12.19 ) mGy, DLP = ( 170.66 ) mGycm TECHNIQUE: Axial non-enhanced images were acquired through the heart for the sole purpose of measuring coronary artery calcium. Individualized dose optimization techniques were used for this CT. COMPARISON: None. FINDINGS: Visualized surrounding anatomy: Normal. Left Main Coronary Artery: 0 Left Anterior Descending Artery: 0 Left Circumflex Artery: 0 Right Coronary Artery: 0 Other: Mild atherosclerotic changes of the aorta without evidence for aneurysm Total Calcium Score: 0 CT/Limited Chest CT w/CCTA IMPRESSION: A Calcium Score of 0 places the patient in the approximate 0 percentile, based on the DRIVER data calculator. Please go to: [email or web address]-[email or web address]/Calcium/i nput.aspx , for a description of the calculator. Electronically Signed: Michael Bauer MD at 16:00 EST , Service support , CC: VICE PRESIDENT OF DEVELOPMENTMicaelaC Sushma Mueller Machine Bobbin Winder: Signed Sushma Mueller Work Phone: Start: 09-29-2019 End: 09-29-2019 PT D/C Summary (1) Comments: See Note; NOTES: [facility] Physical Therapy [address] [place] [address] / REHABILITATION SERVICES DISCHARGE SUMMARY MR#: [id number] Acct: [id number] Name: CARMEN GARCIA Rep #: [id number] : 1950 69 From: Neftali Mcpherson DPT, OCS, CSCS Referring Dr.: Dalila Arzate MD Status: REG RCR Insurance: MEDICARE PART A B [employer] SR SUPPLEMENT INS HP - PT D/C Summary It has been my pleasure to treat CARMEN GARCIA under orders from Dalila Arzate MD, for the diagnosis of Imbalance from PD for a total of 9 visit(s). Discharge Date: 09/28/19 Please see the following information for a summary of their discharge status. - Subjective Subjective: I been exercising at home. Feels stronger than she was especially going down steps. No balance issues lately. is careful on the steps. No pain. Can continue at home with HEP. To doctor Carito Oct 21. - Overall Improvement % Improvement: 60 - Objective Objective/Function: FGAis +2. Walking well adn trasnferring from chair I without UE. Steps up and down without UE reciprocally. (educated to use rail). OVERALL DOING WELL AND WILL CONTINUE VIA hep. - Goals Goal 1:: Pt score 29/30 on FGA to diminish fall risk Goal Progress: Goal Met Goal 2:: Pt I in appropriate HEP for balance and strength to minimzie future problems. Goal Progress: Goal Met - Plan Plan: Continue via HEP adn f/u doctor Shad. - D/C Information Discharge Comments: Pt doing well with HEP and will continue I at home adn see doctor in October. If there are questions or concerns regarding this patient's physical therapy, please feel free to call me at [phone]. Thank you for the referral of this patient. Sincerely, Neftali Mcpherson DPT, OCS, CSCS <Electronically signed by Neftali Mcpherson DPT, OCS, CSCS> 09/29/19 0919 CC: VALENTIN Mueller; Dalila Arzate MD EBG Signed Sushma Mueller Start: 08-29-2019 End: 08-29-2019 Inital Evaluation (1) - PT Comments: See Note; NOTES: [facility] [address] [place] [address]. [address] [place] [address] / REHABILITATION SERVICES INITIAL EVALUATION MR#: [id number] Acct: [id number] Name: CARMEN GARCIA Rep #: [id number] : 1950 69 From: Neftali Mcpherson DPT, OCS, CSCS Referring Dr.: Dalila Arzate MD Status: REG RCR Insurance: MEDICARE PART A B AETNA SR SUPPLEMENT INS Patient's Visit Information CARMEN GARCIA is a 69 year old F referred to Physical Therapy by Dalila Arzate MD with a diagnosis of Imbalance from PD. Date of Evaluation: 08/26/19 Physical Therapist: Neftali Mcpherson, DPT, OCS, CSCS - Visit Plan Frequency: 2x /Week Duration: 4 Weeks Plan: 2x/week for up to 4 weeks to teach fro HEP: Head movement adn foam ex. weight shift large. LE adn postural strength. Please progress to I home program as safety allows adn give pics. Pt already has HS/quad and gstroc stretch pics. - Subjective Findings: Got tremors and been put on meds which has helped. Had them a few months. L leg drags at times. Has to be conscious of picking it up. Had therapy on hips for OA and LB in pool. Diagnosed PD 08/19/19 and ordered up therapy. No falls. Does not feel unsteady but has to be conscous of her foot as her heal drags. No cane or walker needed. No real spinning. No neuropathy but feet get hot sometimes. No real pain. LB hurts sometimes with stadning too long. Does ex at home for hips : piriformis stretch, PKF, HS stretches. Core strength lying on back. Not employed. Retired 3 years. Sleep is good mostly but hard to get comfy on hip and LB at times. Basic ADLS are OK live alone in one story house with washer in basement. Does laundry with railing. Plays bin[employer]ec[employer] for fun. Enjoys dinner functions and [employer] PD ex class for one our. - Objective TM and bike. Walks I slow but safe with good step length and no antalgia. Trasnfers withotu UE I form chair/bed. Steps are reciprocal only need rail to descend. reflexes patella and achilles 2/3. Sensation LE WNL to gross light touch. Strength LE 4/5. HS adn gastroc flex mod limited and quad mod limited. coordination to reciprocal toe tap WFL, Full UE AROM but needs encouragement to lift full flexion. No tremors today. - Balance Scores Functional Gait Assessment Score: 27 % Disability: 10.0000 CATSIB Score (Max score 120 seconds): 105 - Goals Goal 1:: Pt score 29/30 on FGA to diminish fall risk Goal Time Frame: 4-6 Weeks Goal 2:: Pt I in appropriate HEP for balance and strength to minimzie future problems. Goal Time Frame: 4-6 Weeks - Rehabilitation Potential Physical Therapy Diagnosis: Imbalance from PD Rehabilitation Potential: Fair - Anticipated Interventions Patient/Client Instruction: Educate patient on: Condition, Plan of Care For the Purpose of:: To improve muscle performance and motor function, To improve ability of physical actions for home/community/work/leisure, To improve gait and locomotor functions, To improve safety Therapeutic Exercise to Include: Strength training, Balance training, Flexibilty training, Gait and locomotor training For the Purpose of:: To increase tolerance to activity/condition/position, To improve ability of physical actions for home/community/work/leisure, To improve balance, To improve safety with gait Thank you for the opportunity to evaluate your patient. For Medicare and Medicare HMO plans, please review the plan of care and approve it. It will need to be FAXED BACK to us at [phone] for Medicare purposes. For Medicare only, by signing this I certify the plan of care. Please let me know if there are questions or concerns regarding this plan of care. Physician Signature: ___Date: <Electronically signed by Neftali Mcpherson DPT, OCS, [facility]> 08/29/19 0642 CC: VALENTIN Mueller; Dalila Arzate MD EBG Signed Sushma Mueller Start: 07-22-2019 End: 07-22-2019 Inital Evaluation (1) - PT Comments: See Note; NOTES: [facility] Therapy [facility] [address] [place] [address] / REHABILITATION SERVICES INITIAL EVALUATION MR#: [id number] Acct: [id number] Name: CARMEN GARCIA Rep #: [id number] : 1950 69 From: Lindsey Mason PT, Cert. MDT Referring Dr.: VALENTIN Mueller Status: REG RCR Insurance: MEDICARE PART A B AETNA SR SUPPLEMENT INS Patient's Visit Information CARMEN GARCIA is a 69 year old F referred to Physical Therapy by VALENTIN Shukla with a diagnosis of BACK PAIN. Date of Evaluation: 07/21/19 Physical Therapist: Lindsey Mason PT, Cert MDT - Visit Plan Frequency: 1 Duration: 1 Plan: D/C. ONE TIME VISIT ONLY FOR HOME TENS UNIT ASSESSMENT AND INSTRUCTION. - Subjective Findings: PATIENT REPORTS SHE IS STILL DOING HER HOME EX'S AND THAT KIND OF HELPS KEEP IT FREED UP. STATES DR. LOGAN RECOMMENDED CAITIE'S BUT SHE DECLINED THAT ROUTE AND WENT BACK TO HER FAMILY DOCTOR. WANTS TO TRY HOME TENS UNIT IN CONJUNCTION WITH HER HOME EX'S AND SEE HOW SHE DOES. PATIENT WAS RECENTLY HERE FOR AN EPISODE OF CARE MAY 2019 TO JUN 2019 FOR BACK PAIN. Present symptoms: DULL STEADY ACHE ACROSS BOTTOM OF LOW BACK. Present since: NOV 2018. Pain Scale: WORST 4/10, LEAST 1/10. Currently: 1/10. Worse: STANDING DOING DISHES, MOWING, LIFTING. Better: LYING IN BED. Previous history/Previous treatment: PYSICAL THERAPY, ADVIL. OTHER: NO PACEMAKER. NO METAL IN LOW BACK. HAS NOT HAD ELECTRAL STIM TREATMENT IN PAST OR EVEN SEEN A UNIT. - Objective THIS PATIENT PRESENTS TO PHYSICAL THERAPY WITH C/O LOW BACK PAIN AND REQUESTING A HOME TENS UNIT TO USE IN CONJUNCTION WITH HER HOME EX PROGRAM. PATIENT WAS GIVEN INSTRUCTION IN THE PROPER USE OF A HOME TENS UNIT AND THE UNIT WAS APPLIED TO HER FOR SEVERAL MINUTES TO ASSESS RESPONSE TO TREATMENT. PATIENT DEMONSTRATED AND COMMUNICATED A GOOD UNDERSTANDING OF ALL INSTRUCTIONS AFTER GIVEN AND IS A GOOD CANDIDATE TO TRY A HOME TENS UNIT WITH 4 LEADS TO COVER AFFECTED AREA. PATIENT LIVES ALONE. SHE IS GOING TO ASK HER DAUGHTER OR SISTER TO HELP HER NEEDED WITH APPLICATION IN THE BEGINNING. - Goals Goal 1:: SUCCESSFUL INSTRUCTION IN THE USE OF A HOME TENS UNIT Goal Time Frame: 1 - Rehabilitation Potential Rehabilitation Potential: Good - Anticipated Interventions Thank you for the opportunity to evaluate your patient. For Medicare and Medicare HMO plans, please review the plan of care and approve it. It will need to be FAXED BACK to us at [phone] for Medicare purposes. For Medicare only, by signing this I certify the plan of care. Please let me know if there are questions or concerns regarding this plan of care. Physician Signature: ___Date: <Electronically signed by Lindsey Mason PT, Cert. MDT> 07/22/19 1054 CC: VICE PRESIDENT OF DEVELOPMENT-C Sushma Mueller LUCY Signed Sushma Mueller Start: 07-14-2019 End: 07-14-2019 CTA Chest W/WO Contrast Comments: See Note; NOTES: [facility] Imaging Services [address] [place] [address] CTA Chest W/WO Contrast MR#: [id number] Acct: [id number] Name: CARMEN GARCIA Rep #: [id number] : 1950 F 69 From: Jorge Johnson MD PCP: VALENTIN Shukla Status: REG CLI Study: CTA Chest W/WO Contrast Date of Exam: 07/14/19 Exam# [id number] Ordering Dr: Sushma Mueller STUDY: CTA CHEST REASON FOR EXAM: Female, 69 years old. Elevated d-dimer. RADIATION DOSAGE (If Supplied By Facility): CTDIvol = ( 10.25 ) mGy, DLP = ( 477.21 ) mGycm TECHNIQUE: The examination was performed with the intravenous administration of IV 100mL Isovue-370 100. Post-processing of the angiographic images was performed, with multiplanar reformation and 3D reconstruction. Individualized dose optimization techniques were used for this CT. COMPARISON: None. FINDINGS: Normal enhancement of the main pulmonary artery and right and left pulmonary arteries. Normal enhancement of the bilateral peripheral pulmonary arteries. There is no demonstrated pulmonary embolism. There is atherosclerotic calcification of the aortic arch with tortuosity. There is no demonstrated aortic dissection. Normal heart and pericardium. Normal mediastinum. Normal hilar regions. Normal visualized trachea and bronchi. The lungs are well expanded. Normal pulmonary parenchyma. Normal pleura. Normal chest wall structures. Normal osseous structures. Small hiatal hernia. CT/CTA Chest W/WO Contrast IMPRESSION: Normal CTA chest examination, without a demonstrated pulmonary embolism or arterial dissection. Electronically Signed: Jorge Holtnikhil, at 15:10 EDT , Service support , CC: VICE PRESIDENT OF DEVELOPMENT-C Sushma Mueller Machine Bobbin Winder: Signed Sushma Mueller Work Phone: Start: 06-28-2019 End: 06-28-2019 PT D/C Summary (1) Comments: See Note; NOTES: [facility] [address] [place] [address]. [address] [place] [address] / REHABILITATION SERVICES DISCHARGE SUMMARY MR#: [id number] Acct: [id number] Name: CARMEN GARCIA Rep #: [id number] : 1950 69 From: Lindsey Mason PT, Cert. MDT Referring Dr.: Bea Jacobs DO Status: REG RCR Insurance: MEDICARE PART A B AETNA SR SUPPLEMENT INS HP - PT D/C Summary It has been my pleasure to treat CARMEN GARCIA under orders from Bea Jacobs DO, for the diagnosis of LUMBAR DDD, FACET, RADICULOPATHY AND PIRIFORMIS SYND for a total of 9 visit(s). Discharge Date: 06/24/19 Please see the following information for a summary of their discharge status. - Subjective Subjective: I FEEL LOOSER. WHEN I GET UP AFTER SITTING MY HIP ISN'T STIFF IT WAS. STEPS ARE BETTER. RIGHT LEFT IS STRONGER. PATIENT REPORTS THAT AT THIS POINT SHE WANTS TO TRY TO FOLLOW UP WITH THE EX'S ON HER OWN AT HOME TO KEEP THE PROGRESS ACTIVE. I THINK THE POOL STUFF REALLY HELPED BUT I DON'T THINK I NEED TO DO IT ANYMORE. - Pain LB Pain Intensity (Out of 10): 0 R hip Pain Intensity (Out of 10): 0 - Overall Improvement % Improvement: 50 - Objective Objective/Function: PATIENT HAS MADE GOOD PROGRESS TOWARD ALL PT GOALS STATING SHE IS A LOT BETTER BUT IT ISN'T WONDERFUL . Active Correction of posture: BETTER. Other Observations: SLOW INDEP GAIT INTO PT WITH NO GROSS DEVIATIONS NOTED. INDEP TRANSFER SIT TO STAND WITHOUT UE ASSIST. Motor deficit: JANEL LE'S 5/5 WITH MMT'ING. Sensory deficit: NO. ROM deficit: NO. Reflexes: NT. Dural Signs: NEGATIVE JANEL LE'S. Lumbar mvmt loss: flex - MIN. ext - MOD. R SG - MOD. L SG - MOD. PATIENT DENIES INCREASED PAIN WITH LUMBAR ROM TESTING BUT STATES SHE STILL FEELS A PULL ON HER LOW BACK ALL PLANES. Core strength: POOR. Palpation: NO ACUTE TENDERNESS OF BACK OR HIPS TODAY. - Goals Goal 1:: DECREASE C/O LOW BACK AND JANEL HIP PAIN Goal Progress: Progressing Goal 2:: IMPROVE LIFTING, WALKING, STANDING, SLEEP AND HOMEMAKING FUNCTION Goal Progress: Progressing Goal 3:: INSTRUCT IN PROPHYLAXIS Goal Progress: Progressing - Plan Plan: D/C TO INDEP HEP AT PATIENTS REQUEST. - D/C Information If there are questions or concerns regarding this patient's physical therapy, please feel free to call me at [phone]. Thank you for the referral of this patient. Sincerely, Lindsey Mason, PT, Cert MDT <Electronically signed by Lindsey Mason PT, Cert. MDT> 06/28/19 1003 CC: VICE PRESIDENT OF DEVELOPMENTThomas Jacobs DO LUCY Signed Sushma Mueller Start: 05-18-2019 End: 05-18-2019 Inital Evaluation (1) - PT Comments: See Note; NOTES: [facility] [address] [place] [address]. [address] [place] [address] / REHABILITATION SERVICES INITIAL EVALUATION MR#: [id number] Acct: [id number] Name: CARMEN GARCIA Selin Rep #: [id number] : 1950 69 From: Paula Kiser PT. MDT Referring DrGeorgette: Bea Jacobs DO Status: REG RCR Insurance: MEDICARE PART A B AETNA SR SUPPLEMENT INS Patient's Visit Information CARMEN GARCIA is a 69 year old F referred to Physical Therapy by Bea Jacobs DO with a diagnosis of LUMBAR DDD, FACET, RADICULOPATHY AND PIRIFORMIS SYND. Date of Evaluation: 05/16/19 Physical Therapist: Lindsey Mason PT, Cert MDT - Visit Plan Frequency: 2-3x /Week Duration: 4-6 Weeks Plan: AQUATIC THERAPY FOR PAIN RELEIF, POSTURE CORRECTION/STRENGTHENING, INSTRUCTION IN APPROPRIATE BODY MECHANICS AND ACTIVITY MODIFICATIONS. DLS WITH A NEUTRAL SPINE. JANEL LE ROM, STRETCHING AND STRENGTHENING. HEP INSTRUCTION. - Subjective Findings: Work/Leisure: RETIRED. Disability: NO. Present symptoms: RIGHT HIP AND BUTTOCK PAIN. AT NIGHT JANEL HIP PAIN. MY LOWER BACK IS REAL ACHY . PATIENT DENIES JANEL LE NUMBNESS AND TINGLING. HAND AND LEG TREMORS - STATES DR. JACOBS TOLD HER TO FOLLOW UP WITH HER FAMILY DOCTOR ABOUT. RIGHT LE WEAKNESS. Present since: NOV 2018. Pain Scale: WORST 7/10, LEAST 1/10. Currently: 10/21. Commenced as a result of: NO APPARENT REASON. Symptoms at onset: RIGHT HIP. Worse: STAIRS, LYING ON SIDES AT NIGHT, MORE STRENUOUS ACTIVITY LIKE MOWING, TRYING TO INITIATE GAIT AFTER SITTING RIGHT HIP IS REALLY TIGHT, AHES DOING DISHES - IN LOW BACK. Better: SITTING. Disturbed sleep: YES. Previous history/Previous treatment: AQUATIC THERAPY AT [facility] IN DECEMBER AND JANUARY - WATER HELPED SOME BUT DIDN'T FEEL LIKE SHE WAS ACCOMPLISHING A WHOLE LOT. WAS DOING HEP BUT SLACKED OFF AND NOW FLARED UP AGAIN. Coughing/sneezing/straining: NO. Gait: RIGHT SIDE IS STIFFER. Difficulty initiating urinatin: NO. Accidents: NO. Unexplained weight loss: NO. Imaging: RECENT HIP AND BACK X-RAYS - NO CHANGE FROM PRIOR X-RAYS. ARTHRITIS. PMH: UNREMARKABLE. Recent major surgery: NO. OTHER: ALSO RECEIVED REFERRAL FOR DR. LOGAN - PATIENT IS AWAITING CALL TO SCHEDULE - Objective Sitting/Standing: POOR. Lordosis: REDUCED. Lateral shift: NO. Relevant shift: N/A. Active Correction of posture: WORSE - PULLING ON LOW BACK. Other Observations: SLOW INDEP GAIT INTO PT WITH NO GROSS DEVIATIONS NOTED. INDEP TRANSFER SIT TO STAND WITHOUT UE ASSIST. Motor deficit: JANEL LE'S 5/5 WITH MMT'ING EXCEPT RIGHT HIP 4-/5 AND LEFT HIP 4/5. Sensory deficit: NO. ROM deficit: NO BUT TESTING OR RIGHT HIP IR PROVOKES RIGHT HIP PAIN. Reflexes: 1/2 JANEL LE'S. Dural Signs: NEGATIVE JANEL LE'S. Lumbar mvmt loss: flex - MIN. ext - GABRIELA. R SG - GABRIELA. L SG - GABRIELA. PATIENT DENIES INCREASED PAIN WITH LUMBAR ROM TESTING BUT STATES SHE FEELS A PULL ON HER LOW BACK ALL PLANES. Core strength: POOR. Palpation: NO ACUTE TENDERNESS OF BACK OR HIPS TODAY. - Goals Goal 1:: DECREASE C/O LOW BACK AND JANEL HIP PAIN Goal Time Frame: 4-6 Weeks Goal 2:: IMPROVE LIFTING, WALKING, STANDING, SLEEP AND HOMEMAKING FUNCTION Goal Time Frame: 4-6 Weeks Goal 3:: INSTRUCT IN PROPHYLAXIS Goal Time Frame: 4-6 Weeks - Rehabilitation Potential Rehabilitation Potential: Fair - Anticipated Interventions Patient/Client Instruction: Educate patient on: Condition, Plan of Care, Risk Factors, Benefits of Fitness Program For the Purpose of:: To improve self management Therapeutic Exercise to Include: Strength training, Body mechanics, Postural training, Flexibilty training, In an aquatic setting , Dynamic Lumbar Stabilization For the Purpose of:: To decrease pain, To increase ROM, To improve muscle performance and motor function, To increase tolerance to activity/condition/position, To improve ability of physical actions for home/community/work/leisure Thank you for the opportunity to evaluate your patient. For Medicare and Medicare HMO plans, please review the plan of care and approve it. It will need to be FAXED BACK to us at [phone] for Medicare purposes. For Medicare only, by signing this I certify the plan of care. Please let me know if there are questions or concerns regarding this plan of care. Physician Signature: ___Date: <Electronically signed by Lindsey Mason PT, Cert. MDT> 05/18/19 1151 CC: VALENTIN Mueller; Bea Jacobs DO LUCY Signed Sushma Mueller Start: 05-12-2019 End: 05-12-2019 Orthopedic Visit Report Comments: See Note; NOTES: [facility] [address] [place] [address] OFFICE VISIT Date of Service: 05/05/19 MR#: [id number] Acct: [id number] Name: CARMEN GARCIA Rep #: [id number] : 1950 Provider: Bea Jacobs DO Age/Sex: 69/F Location: [facility] [place] [place] Status: Signed Intake Vital Signs05/05/19 Height 5 ft 3 in 05/05/19 Weight: 197 lb 05/05/19 Body Mass Index (BMI) 34.9 Intake Visit Reasons: right hip Allergies No Known Allergies Allergy (Unverified 05/05/19 11:32) Medications aspirin 81 mg tablet,delayed release 81 mg PO DAILY 05/05/19 [History Confirmed 05/05/19] cholecalciferol (vitamin D3) 50,000 unit capsule 50,000 unit PO QWEEK 05/05/19 [History Confirmed 05/05/19] garlic 1,000 mg capsule 1,000 mg PO QPC PRN 05/05/19 [History Confirmed 05/05/19] irbesartan 300 mg tablet 300 mg PO DAILY 05/05/19 [History Confirmed 05/05/19] levothyroxine 137 mcg capsule 137 mcg PO DAILY 05/05/19 [History] omega 0-hwx-egr-fish oil 60 mg-90 mg-500 mg capsule 1 cap PO DAILY 05/05/19 [History Confirmed 05/05/19] HPI right hip: Details: Parts of this documentation were recorded by a scribe, this documentation accurately reflects the service provided and the decisions made by me, Bea Jacobs DO 05/05/19 1035. CARMEN GARCIA is a 69 year old F new patient here today for right hip pain with weakness that she has had for about 6 months. Denies any injury. Has pain over the outside of her hip that she describes as a pinching dull ache. Does have lower back pain as well. Deneis any groin pain. States her pain is worse when she sits for long periods and with stairs. Patient has had PT in December at [facility]. Patient does report a fall on her tailbone about 1 year ago. Reports seeing a chiropractor for her back in the past. ROS Const Reports system reviewed and no additional complaints, except as docu Eyes Reports system reviewed and no additional complaints, except as docu ENT Reports system reviewed and no additional complaints, except as docu Card Reports system reviewed and no additional complaints, except as docu Resp Reports system reviewed and no additional complaints, except as docu GI Reports system reviewed and no additional complaints, except as docu Musc Reports as per HPI Skin/Breast Reports system reviewed and no additional complaints, except as docu Neuro Yes system reviewed and no additional complaints, except as docu Psych Reports system reviewed and no additional complaints, except as docu Endo Reports system reviewed and no additional complaints, except as docu Vinnie/Lymph Reports system reviewed and no additional complaints, except as docu Aller/Immun Reports system reviewed and no additional complaints, except as docu Ortho Exam Right Hip Skin: No Ecchymosis, No Erythema Homans Sign: No HIP: Pain of gluteus medius TTP over piriformis no greater troch pain sensation intact of BL lower legs. strength of BL lower extrenmities intact. Left Hip Homans Sign: No Assessment AND Plan Problems 1. Piriformis syndrome of right side G57.01 2. DDD (degenerative disc disease), lumbar M51.36 3. Spinal stenosis of lumbar region, unspecified whether neurogenic claudication present M48.061 Plan Obtained X-rays of patient's right hip and lumbar spine. Personally reviewed x-rays. There is no obvious fracture, dislocation, or lucency noted. Patient educated that she does have DDD of her lumbar spine along with piriformis syndrome and spinal stenosis. Tx options for piriformis syndrome is formal PT along with HEP for stretching. It would be beneficial for patient to have dry needling along with ultrasound. Also recommended patient see Dr. Logan for her lower back pain and recommended she see her PCP for the tremor she is noticing of her right arm. Follow up as needed or sooner if pain, swelling, numbness or associated symptoms, or concerns develop. All questions answered. Patient in agreement of plan. Orders Orders: Coding Level of Care Code Off vis,new,level 3 Diagnoses Piriformis syndrome of right side G57.01 DDD (degenerative disc disease), lumbar M51.36 Spinal stenosis of lumbar region, unspecified whether neurogenic claudication present M48.061 Neurogenic claudication status: unspecified 05/12/19 1249 <Electronically signed by Bea Jacobs DO> Date Bea Jacobs DO Cosigner Signature: Date (if applicable) CC: VALENTIN Mueller Start: 05-06-2019 End: 05-06-2019 SCREEN MAMM (CAD) W/ROBERTO BILAT Comments: See Note; NOTES: [facility] Imaging Services [address] [place] [address] SCREEN MAMM (CAD) W/ROBERTO BILAT MR#: [id number] Acct: [id number] Name: CARMEN GARCIA Rep #: [id number] : 1950 F 69 From: Efrain Vazquez MD PCP: VALENTIN Shukla Status: REG CLI Study: SCREEN MAMM (CAD) W/ROBERTO BILAT Date of Exam: 05/06/19 Exam# [id number] Ordering Dr: Sushma Mueller MAMMOGRAPHY - BILATERAL SCREENING 3-D TOMOSYNTHESIS REASON FOR EXAM: Female, 69 years old. Bilateral Screening 3-D tomosynthesis PERTINENT HISTORY: Mother and aunt with breast cancer.. TECHNIQUE: 2-D mammograms and 3-D Tomosynthesis of the breast (s) were performed. CAD was performed. COMPARISON: 05/05/2018 FINDINGS: The breast composition is almost entirely fat. Scattered benign calcifications are seen. No dense spiculated masses or suspicious microcalcifications are identified. No architectural distortion is identified. There is no skin thickening or retraction. There has been no significant change since the prior study. BI/SCREEN MAMM (CAD) W/ROBERTO BILAT IMPRESSION: No mammographic signs of malignancy. Routine yearly mammograms recommended. ASSESSMENT CATEGORY: BIRADS Category 1: Negative. A letter regarding these results will be sent to the patient by the facility within 30 days. FOLLOW UP RECOMMENDATION: Yearly follow up mammogram recommended. (A) Approximately 10% of breast cancers are not detected by mammography. A normal mammogram should not delay biopsy of a clinically suspicious abnormality. Electronically Signed: Ace Vazquez MD at 13:09 EDT , Service support , CC: VALENTIN Mueller Machine Bobbin Winder: Signed Sushma Mueller Work Phone: Start: 05-05-2019 End: 05-05-2019 HIP, UNI W/ Pelvis 2-3 Views Comments: See Note; NOTES: [facility] Imaging Services [address] [place] [address] HIP, UNI W/ Pelvis 2-3 Views MR#: [id number] Acct: [id number] Name: CARMEN GARCIA Rep #: [id number] : 1950 F 69 From: Fern Curtis MD PCP: Sushma Mueller NP Status: REG CLI Study: HIP, UNI W/ Pelvis 2-3 Views Date of Exam: 05/05/19 Exam# [id number] Ordering Dr: Bea Jacobs DO STUDY: X-RAY - PELVIS AND RIGHT HIP REASON FOR EXAM: Female, 69 years old. Low back pain. TECHNIQUE: 3 views of the pelvis and hip. COMPARISON: None. FINDINGS: There is a non-specific bowel gas pattern. Phleboliths in the pelvis. Mild generalized osteopenia. Normal bilateral iliac wings, sacroiliac joints and visualized sacrum. Normal bilateral superior and inferior pubic rami. Normal pubic symphysis. Normal bilateral ischial tuberosities. Incidental note of spina bifida occulta of S1, a normal variant. Mild arthrosis of both hips. RAD/HIP, UNI W/ Pelvis 2-3 Views IMPRESSION: Osteopenia with mild arthrosis of both hips. Electronically Signed: Fern Curtis MD at 13:30 EDT , Service support , CC: VICE PRESIDENT OF DEVELOPMENT Sushma Mueller; Bea Jacobs DO Machine Bobbin Winder: Signed Sushma Mueller Start: 05-05-2019 End: 05-05-2019 L/S Spine Min 4 Views Comments: See Note; NOTES: [facility] Imaging Services [address] [place] [address] L/S Spine Min 4 Views MR#: [id number] Acct: [id number] Name: CARMEN GARCIA Rep #: [id number] : 1950 F 69 From: Fern Curtis MD PCP: Sushma Mueller NP Status: REG CLI Study: L/S Spine Min 4 Views Date of Exam: 05/05/19 Exam# [id number] Ordering Dr: Bea Jacobs DO ADDENDUM by Fern Curtis MD on 05/05/19 at 1331 ADDENDUM Incidentally noted is a spina bifida occulta of S1, a normal variant. Electronically Signed: Fern Curtis MD at 13:31 EDT , Service support , 05/05/19 1331 Date cc: VICE PRESIDENT OF DEVELOPMENT Sushma Mueller; Bea Jacobs DO * Signed ADDENDUM by Fern Curtis MD on 05/05/19 at 1331 RAD/L/S Spine Min 4 Views 05/05/19 1338 Date cc: OLIVE Mueller; Bea Jacobs DO * Signed STUDY: X-RAY - LUMBAR SPINE REASON FOR EXAM: Female, 69 years old. Back pain. TECHNIQUE: 5 view(s) of the lumbar spine were obtained. COMPARISON: None FINDINGS: Mild generalized osteopenia. Normal lumbar lordosis. There is no substantial scoliosis. There is a normal alignment of the vertebrae. Normal vertebral bodies and endplates. Minimal intervertebral disc space narrowing most marked at L5-S1 with vacuum phenomenon. Diffuse facet sclerosis. Vascular calcification. RAD/L/S Spine Min 4 Views IMPRESSION: Osteopenia with mild lower lumbar spondylosis. Electronically Signed: Fern Curtis MD at 13:29 EDT , Service support , CC: OLIVE Mueller; Bea Jacobs DO Machine Bobbin Winder: Signed Sushma Mueller Start: 05-05-2018 End: 05-05-2018 SCREENING MAMM (CAD), BILAT Comments: See Note; NOTES: [facility] Imaging Services [address] [place] [address] SCREENING MAMM (CAD), BILAT MR#: [id number] Acct: [id number] Name: CARMEN GARCIA Rep #: [id number] : 1950 F 68 From: Efrain Vazquez MD PCP: Sushma Mueller NP Status: REG CLI Study: SCREENING MAMM (CAD), BILAT Date of Exam: 05/05/18 Exam# [id number] Ordering Dr: Sushma Mueller MAMMOGRAPHY - BILATERAL SCREENING 3-D ROBERTO SYNTHESIS REASON FOR EXAM: Female, 68 years old. Bilateral Screening 3-D tomosynthesis PERTINENT HISTORY: Mother and aunt with breast cancer.. TECHNIQUE: 2-D mammograms and 3-D Roberto synthesis of the breast (s) were performed. CAD was performed. COMPARISON: 05/04/2017 FINDINGS: The breast composition is composed of scattered fibroglandular density. Scattered benign calcifications are seen. No dense spiculated masses or suspicious microcalcifications are identified. No architectural distortion is identified. There is no skin thickening or retraction. There has been no significant change since the prior study. BI/SCREENING MAMM (CAD), BILAT IMPRESSION: No mammographic signs of malignancy. Routine yearly mammograms recommended. ASSESSMENT CATEGORY: BIRADS Category 2: Benign. A letter regarding these results will be sent to the patient by the facility within 30 days. FOLLOW UP RECOMMENDATION: Yearly follow up mammogram recommended. (A) Approximately 10% of breast cancers are not detected by mammography. A normal mammogram should not delay biopsy of a clinically suspicious abnormality. Electronically Signed: Ace Vazquez MD at 15:02 EDT , Service support , CC: Sushma Mueller NP Machine Bobbin Winder: Signed Sushma Mueller Work Phone: Start: 07-30-2017 End: 07-31-2017 Brain W/WO Contrast Comments: See Note; NOTES: [facility] Imaging Services [address] [place] [address] Brain W/WO Contrast MR#: [id number] Acct: [id number] Name: CARMEN GARCIA Rep #: [id number] : 1950 F 67 From: Adelina Clifford PCP: Sushma Mueller Status: REG CLI Study: Brain W/WO Contrast Date of Exam: 07/30/17 Exam# [id number] Ordering Dr: Sushma Mueller STUDY: MRI BRAIN WITH AND WITHOUT CONTRAST REASON FOR EXAM: Female, 67 years old. H/A, foggy feeling TECHNIQUE: Standardized multiplanar fat and water weighted pulse sequences were obtained. 9 ml of Gadavist contrast material was administered intravenously for the contrast portion of the examination. COMPARISON: None. FINDINGS: Normal size of the ventricles and extra-axial spaces for the patient's age. There are a limited number of small white matter hyperintensities, distributed throughout the deep white matter tracts of the cerebral hemispheres, nonspecific but most commonly seen with with mild chronic white matter ischemic changes. Normal bilateral basal ganglia. Normal thalami. There is no extra-axial fluid accumulation. Normal flow voids within the major intracranial circulation suggesting patency by spin echo criteria. Normal venous enhancement. There is no enhancing intra-axial or extra-axial abnormality. Normal sella turcica, pituitary gland, infundibular stalk, optic chiasm and hypothalamus. Normal tectal plate and pineal gland. Normal midbrain, miguel a and medulla. Normal cerebellum. Normal basal cisterns. Normal bilateral temporal bones. Normal bilateral internal auditory canals. No demonstrated orbital abnormality, within the constraints of a routine brain study. Normal visualized paranasal sinuses. Normal calvarium and skull base. Normal visualized soft tissue structures. Normal visualized upper cervical spine. MRI/Brain W/WO Contrast IMPRESSION: No acute intracranial abnormality or masses. Electronically Signed: Adelina Clifford MD at 9:17 EDT Tel , Service support , CC: Sushma Mueller Machine Bobbin Winder: Signed Sushma Mueller Work Phone: Start: 05-04-2017 End: 05-04-2017 SCREENING MAMM (CAD), BILAT Comments: See Note; NOTES: [facility] Imaging Services [address] [place] [address] [address] 4d SCREENING MAMM (CAD), BILAT MR#: [id number] Acct: [id number] Name: CARMEN GARCIA Rep #: [id number] : 1950 F 67 From: Jorge Johnson MD PCP: Sushma Mueller Status: REG CLI Study: SCREENING MAMM (CAD), BILAT Date of Exam: 05/04/17 Exam# [id number] Ordering Dr: Sushma Mueller MAMMOGRAPHY - BILATERAL SCREENING REASON FOR EXAM: Female, 67 years old. Routine annual screening examination. PERTINENT HISTORY: Mother with breast cancer. Aunt with breast cancer. TECHNIQUE: Digital bilateral breast roberto (3D mammographic acquisition) in the CC and MLO projections. 2-D mediolateral oblique (MLO) and craniocaudad (CC) views of both breasts were obtained. CAD: Full Field Digital Mammography with Computer Added Detection was performed. COMPARISON: Comparison is made with prior study dated April 25, 2016 and April 24, 2015. FINDINGS: Breast Composition: There are scattered areas of fibroglandular density. There are no dominant masses or suspicious calcifications. No other significant abnormalities are identified. There has been no significant change since the prior study. HPBI/SCREENING MAMM (CAD), BILAT IMPRESSION: Stable bilateral screening mammogram. Yearly follow-up mammogram recommended. (A) ASSESSMENT CATEGORY: BIRADS Category 1: Negative. A letter regarding these results will be sent to the patient by the facility within 30 days. Approximately 10% of breast cancers are not detected by mammography. A normal mammogram should not delay biopsy of a clinically suspicious abnormality. [id number] Electronically Signed: Jorge Johnson MD at 13:04 EDT Tel [phone], Service support , CC: Sushma Mueller Machine Bobbin Winder: Signed Sushma Mueller Work Phone: Start: 09-09-2016 End: 09-09-2016 PT D/C Summary (1) Comments: See Note; NOTES: [facility] [address] [place] [address] Fax REHABILITATION SERVICES DISCHARGE SUMMARY MR#: [id number] Acct: [id number] Name: CARMEN GARCIA Rep #: [id number] : 1950 66 From: Reina Morel DPT Referring DrGeorgette: Sage Morales Status: REG RCR Insurance: MEDICARE PART A B AETNA HP - PT D/C Summary It has been my pleasure to treat CARMEN GARCIA under orders from Sage Morales, for the diagnosis of Left hip pain for a total of 7 visit(s). Discharge Date: Please see the following information for a summary of their discharge status. - Subjective Subjective: Patient reports the hip is completely back to normal. Doesn't hurt at all and no pain with going up/down the stairs. Is able to complete exercises at home. No N/T- no completing ADL's , - Pain LEFT HIP Pain Intensity (Out of 10): 0 - Objective Objective/Function: Posture: FH, RS- can correct with VC's. Palpation: not tender. ROM: WFL. Strength: 5/5 throughout LE- Core-fair. Stairs: asc/desc 8 recip with 1 HR. Gait: no deviation note - Goals Goal 1:: Patient will be I with HEP and progression Goal Progress: Goal Met Goal 2:: Patient will asc/desc 8 recip with 1 HR safely and controlled Goal Progress: Goal Met Goal 3:: Patient will ambulate >300 feet with a normalized gait pattern Goal Progress: Goal Met Goal 4:: Patient will demo 4+/5 strength in LE where deficit to ease ADL's. Goal Progress: Goal Met - Plan Plan: Discharge to I HEP - D/C Information If there are questions or concerns regarding this patient's physical therapy, please feel free to call me at [phone]. Thank you for the referral of this patient. Sincerely, Reina Morel <Electronically signed by Reina ROBLEST> 09/09/16 1046 CC: Sage Morales ELR Signed Sushma Mueller Start: 08-13-2016 End: 08-13-2016 Inital Evaluation (1) - PT Comments: See Note; NOTES: [facility] [address] [place] [address] Fax REHABILITATION SERVICES INITIAL EVALUATION MR#: [id number] Acct: [id number] Name: CARMEN GARCIA Rep #: [id number] : 1950 66 From: Reina Morel DPChivo Referring Dr.: Sage Morales Status: REG RCR Insurance: MEDICARE PART A B AETNA Patient's Visit Information CARMEN GARCIA is a 66 year old F referred to Physical Therapy by Sage Morales with a diagnosis of Left hip pain. Date of Evaluation: 08/13/16 Physical Therapist: Reina Morel - Visit Plan Frequency: 2-3x /Week Duration: 3 Weeks Plan: Focus on LE strength and functional mobility. Modalities PRN - Subjective Subjective: Patient reports left hip pain about 5 months with insidious onset. Thinks it might have started with a hard mattress and has now switched to a softer mattress but its not working. Agg: getting up from sitting, stairs (up/down), Worst: 8/10 Dull and achy Best: 0/ 10 Eases: stop going up/down stairs, rest, Aleve. Pain is located along the greater troch and wraps around to front of the thigh. No radiating pain down the leg or into the back. Does not have chronic back issues. No N/T in the LE. No loss or change in bowel and bladder. Does Silver Sneakers 2x and they did alot of marching/stepping and she felt like that made it wrose- better since she stopped going about 2-3 weeks ago. Sleep: can wake her if she lays on the left side then she can get off and sleep is better. Does all own yard work/house work- retired in March. Fully I - drives. X-rays- negative. Had one a few years ago which showed OA. PMHx: HTN, thyroid Meds: adipro, synthroid, - Objective Posture: FH, RS, Increased kyphosis. Gait: antalgic- decreased step length on the left. Stairs: asc/desc 8 recip with 2 HR and uncontrolled descent. HR/TR: able without incidence. Balance: WS but unable to SLS. Palpation: not tender. ROM: WFL no pain. Strength: Core: fair , Hip: 4/5 throughout, Knee: 5/5, Ankle: 5/5. Special Test: FABIR: positive, FADDER: positive - Goals Goal 1:: Patient will be I with HEP and progression Goal Time Frame: 4-6 Weeks Goal 2:: Patient will asc/desc 8 recip with 1 HR safely and controlled Goal Time Frame: 4-6 Weeks Goal 3:: Patient will ambulate >300 feet with a normalized gait pattern Goal Time Frame: 4-6 Weeks Goal 4:: Patient will demo 4+/5 strength in LE where deficit to ease ADL's. Goal Time Frame: 4-6 Weeks - Rehabilitation Potential Physical Therapy Diagnosis: Patient presents with hypomobility- she has decreased strength and muscular endurance leading to an abnormal gait pattern and pain with ADL's. Rehabilitation Potential: Fair - Anticipated Interventions Patient/Client Instruction: Educate patient on: Benefits of Fitness Program For the Purpose of:: To increase tolerance to activity/condition/position Therapeutic Exercise to Include: Strength training, Endurance training, Balance training, Body mechanics, Postural training, Flexibilty training, Gait and locomotor training, Dynamic Lumbar Stabilization For the Purpose of:: To improve muscle performance and motor function TENS: Yes Cryotherapy (ice pack, ice massage): Yes Thermo therapy (hot pack): Yes Ultrasound (thermal/non thermal): Yes For the Purpose of:: To decrease pain Thank you for the opportunity to evaluate your patient. For Medicare and Medicare HMO plans, please review the plan of care and approve it. It will need to be FAXED BACK to us at [phone] for Medicare purposes. Please let me know if there are questions or concerns regarding this plan of care. Physician Signature: ___Date: <Electronically signed by Reina Mroel DPT> 08/13/16 1209 CC: Sage Morales ELR Signed For Medicare only, by signing this I certify the plan of care. Physicians Signature Date Sushma Mueller Start: 08-07-2016 End: 08-07-2016 Hip 2-3 Views with Pelvis Comments: See Note; NOTES: [facility] Imaging Services [address] [place] [address] Verdana 4d Hip 2-3 Views with Pelvis MR#: [id number] Acct: [id number] Name: CARMEN GARCIA Rep #: [id number] : 1950 F 66 From: Jorge Johnson MD PCP: Sage Morales Status: REG CLI Study: Hip 2-3 Views with Pelvis Date of Exam: 08/07/16 Exam# [id number] Ordering Dr: Sage Morales STUDY: X-RAY - PELVIS AND LEFT HIP REASON FOR EXAM: Female, 66 years old. Left hip pain. TECHNIQUE: Radiological exam, hip, unilateral, with pelvis when performed; 2 or 3 views. COMPARISON: None. FINDINGS: There is a non-specific bowel gas pattern. Normal visualized soft tissue structures. Normal bilateral iliac wings, sacroiliac joints and visualized sacrum. Normal bilateral superior and inferior pubic rami. Normal pubic symphysis. Normal bilateral ischial tuberosities. Normal visualized femoral head. Normal acetabulum. Normal hip joint. RAD/Hip 2-3 Views with Pelvis IMPRESSION: Normal x-ray examination of the pelvis and hip. Electronically Signed: Jorge Johnson MD at 12:34 EDT Tel [phone], Service support [phone], CC: Sage Morales Machine Bobbin Winder: Signed Sage Morales Work Phone: Start: 04-25-2016 End: 04-25-2016 Bilat Scrn Digital AND CAD Comments: See Note; NOTES: [facility] Imaging Services [address] [place] [address] Verdana 4d Bilat Scrn Digital AND CAD MR#: [id number] Acct: [id number] Name: CARMEN GARCIA Rep #: [id number] : 1950 F 66 From: Jorge Johnson MD PCP: Cassandra Myers DO Status: REG CLI Study: Bilat Scrn Digital AND CAD Date of Exam: 04/25/16 Exam# [id number] Ordering Dr: Sage Morales MAMMOGRAPHY - BILATERAL SCREENING REASON FOR EXAM: Female, 66 years old. Routine annual screening examination. PERTINENT HISTORY: Mother with breast cancer. TECHNIQUE: Digital bilateral breast roberto (3D mammographic acquisition) in the CC and MLO projections. 2-D mediolateral oblique (MLO) and craniocaudad (CC) views of both breasts were obtained. CAD: Full Field Digital Mammography with Computer Added Detection was performed. COMPARISON: Comparison is made with prior study dated April 24, 2015 and March 24, 2014. FINDINGS: Breast Composition: There are scattered areas of fibroglandular density. There are no dominant masses or suspicious calcifications. No other significant abnormalities are identified. There has been no significant change since the prior study. IMPRESSION: Stable bilateral screening mammogram. Yearly follow-up mammogram recommended. (A) ASSESSMENT CATEGORY: BIRADS Category 1: Negative. A letter regarding these results will be sent to the patient by the facility within 30 days. Approximately 10% of breast cancers are not detected by mammography. A normal mammogram should not delay biopsy of a clinically suspicious abnormality. [id number] Electronically Signed: Jorge Johnson MD at 12:24 EDT Tel [phone], Service support [phone], CC: Cassandra Myers DO; Sage Morales Machine Bobbin Winder: Signed Sage Morales Work Phone: Start: 03-05-2016 End: 03-05-2016 Ecg routine ecg w/least 12 lds w/i&r [MEASUREMENTS ANALYSIS] Date of Test: 03/05/2016 08:39:59; Heart Rate: 106; DC Interval: 148; QRS: 85; QT Interval: 338; Corrected QT Interval (QTc): 418; P Wave Dallas: 38; QRS Wave Dallas: 14; T Wave [place]: 35; Blood Pressure: 122/74 [ECG DIAGNOSTIC STATEMENTS] Date of Test: 03/05/2016 08:39:59; Summary: Sinus Tachycardia WITHIN NORMAL LIMITS Sushma Mueller Work Phone: Start: 04-24-2015 End: 04-24-2015 Bilat Scrn Digital AND CAD Comments: See Note; NOTES: [facility] Imaging Services [address] [place] [id number] Breast Imaging Report MR#: [id number] Acct: [id number] Name: CARMEN GARCIA Rep #: [id number] : 1950 F 65 From: Jorge Johnson MD PCP: Cassandra Myers DO Status: REG CLI Study: Bilat Scrn Digital AND CAD Date of Exam: 04/24/15 Exam# [id number] Ordering Dr: Cassandra Myers DO MAMMOGRAPHY - BILATERAL SCREENING REASON FOR EXAM: Female, 65 years old. Routine annual screening examination. PERTINENT HISTORY: Mother with breast cancer. TECHNIQUE: Digital examination. Mediolateral oblique (MLO) and craniocaudad (CC) views of both breasts were obtained. CAD: CAD was performed on this study. COMPARISON: Comparison is made with prior study dated March 24, 2014 and September 30, 2012. FINDINGS: Breast Composition: There are scattered areas of fibroglandular density. There are no dominant masses or suspicious calcifications. No other significant abnormalities are identified. There has been no significant change since the prior study. IMPRESSION: Stable bilateral screening mammogram. Yearly follow-up recommended. (A) ASSESSMENT CATEGORY: BIRADS Category 1: Negative. A letter regarding these results will be sent to the patient by the facility within 30 days. Approximately 10% of breast cancers are not detected by mammography. A normal mammogram should not delay biopsy of a clinically suspicious abnormality. Electronically Signed: Jorge Johnson MD at 11:34 EDT Tel [phone], Service support [phone], CC: Cassandra Myers DO Machine Bobbin Winder: Signed Cassandra Myers Work Phone: Start: 03-24-2014 End: 03-24-2014 Bilat Scrn Digital & CAD Comments: See Note; NOTES: [facility] Imaging Services [address] [place] [id number] Breast Imaging Report MR#: [id number] Acct: [id number] Name: CARMEN GARCIA Rep #: [id number] : 1950 F 64 From: Jorge Johnson MD PCP: Cassandra Myers DO Status: REG CLI Exam# [id number] Ordering Dr: Cassandra Myers DO MAMMOGRAPHY - BILATERAL SCREENING REASON FOR EXAM: Female, 64 years old. Routine annual screening examination. PERTINENT HISTORY: Mother with breast cancer. TECHNIQUE: Digital examination. Mediolateral oblique (MLO) and craniocaudad (CC) views of both breasts were obtained. CAD: CAD was performed on this study. COMPARISON: Comparison is made with prior study dated September 30, 2012 and September 25, 2011. FINDINGS: The breast composition is almost entirely fatty with glandular tissue comprising less than 25% of the total breast volume. There are no dominant masses or suspicious calcifications. No other significant abnormalities are identified. There has been no significant change since the prior study. IMPRESSION: Stable bilateral screening mammogram. Yearly follow-up recommended. (A) ASSESSMENT CATEGORY: BIRADS Category 2: Benign finding(s). A letter regarding these results will be sent to the patient by the facility within 30 days. Approximately 10% of breast cancers are not detected by mammography. A normal mammogram should not delay biopsy of a clinically suspicious abnormality. Electronically Signed: Jorge Johnson MD at 12:56 EDT Tel [phone], Service support [phone], CC: Cassandra Myers DO Machine Bobbin Winder: Signed Cassandra Myers Work Phone: Cardioversion DR DAMIAN HOLLAND MD Cholecystectomy Patsy Slarb Cholecystectomy Srikanth Mcgrath Cholecystectomy Srikanth Mcgrath Cholecystectomy Erica Coffma n Cholecystectomy Srikanth Mcgrath Cholecystectomy Srikanth Mcgrath Cholecystectomy Srikanth Donald Cholecystectomy Srikanth Donald Cholecystectomy Erica Coffma n MEDICAL CODING AUDITOR Cholecystectomy Patsy Slarb MEDICAL CODING AUDITOR Cholecystectomy Joanie Manc hak INSPECTOR DIALS Cholecystectomy Cassandra Genao Fast DO Work Phone: Cholecystectomy Malaika Navarro MA Cholecystectomy Patsy Slarb MEDICAL CODING AUDITOR Cholecystectomy DR DAMIAN CONKLIN MD End: 01-16-2010 Cholecystectomy Cholecystectomy Srikanth Donald MEDICAL CODING AUDITOR Colonoscopy DR DAMIAN HARRIS MD Comment on above: 4 History of thyroidectomy Srikanth Mcgrath MEDICAL CODING AUDITOR Hysterectomy DR DAMIAN HARRIS MD partial hysterectomy Patsy Slarb partial hysterectomy Srikanth Mcgrath partial hysterectomy Srikanth Mcgrath partial hysterectomy Erica C offman partial hysterectomy Srikanth Mcgrath partial hysterectomy Srikanth Mcgrath partial hysterectomy Srikanth Donald partial hysterectomy Srikanth Bennett Screening for osteoporosis Screening for osteoporosis (Renamed from Encounter for screening for osteoporosis) Sushma Mueller thyroidectomy/parath yro idectomy - 2012 Patsy Slarb thyroidectomy/parath yro idectomy - 2012 Srikanth Mcgrath thyroidectomy/parath yro idectomy - 2012 Srikanth Mcgrath thyroidectomy/parath yro idectomy - 2012 Erica Calos thyroidectomy/parath yro idectomy - 2012 Srikanth Mcgrath thyroidectomy/parath yro idectomy - 2012 Srikanth Mcgrath thyroidectomy/parath yro idectomy - 2012 Srikanth Bennett thyroidectomy/parath yro idectomy - 2012 Srikanth Bennett Tonsillectomy Patsy Slarb Tonsillectomy Srikanth Mcgrath Tonsillectomy Srikanth Mcgrath Tonsillectomy Erica Calos Tonsillectomy Srikanth Mcgrath Tonsillectomy Sriaknth Mcgrath Tonsillectomy Srikanth Bennett Tonsillectomy Srikanth Bennett Tonsillectomy Erica Calos MEDICAL CODING AUDITOR Tonsillectomy Patsy Slarb L PN Tonsillectomy Joanie Pierre k INSPECTOR DIALS Tonsillectomy Cassandra A Fast D O Work Phone: Tonsillectomy Malaika Genao Tonsillectomy Patsy Slarb L PN Total thyroidectomy DR EDOUARD HARTMANN MD Srikanth Bennett LP N Erica Calos L PN Srikanth Mcgrath LP N Patsy Slarb LP N Joanie Manchak INSPECTOR DIALS Cassandra A Fast DO Work Phone: Malaika Jeromea Slarb LP N Plan of Treatment Date Care Activity Detail Author Start: 12-23-2023 [facility] Vascular Lab Routine Carotid stenosis, asymptomatic, bilateral Expected: 12/23/2023 [facility] Work Phone: Comment on above: Expected: 12/23/2023 Start: 10-12-2023 Advance Directive Discussion Advance Directive Discussion [facility] Start: 10-12-2023 Behavioral Health Screening Behavioral Health Screening [facility] Start: 10-12-2023 Depression Assessment Depression Assessment [facility] Start: 06-12-2023 Covid-19 Vaccine () Covid-19 Vaccine () [facility] Start: 02-13-2023 Procedure Education [facility]; [facility] Work Phone: Start: 02-13-2023 Provider Instructions for Treatment [facility] Work Phone: Start: 02-13-2023 Blood count complete auto&auto difrntl wbc [facility]; [facility] Work Phone: Start: 01-09-2023 End: 01-09-2023 US CAROTID [facility]ERIES [facility] US CAR[facility]ID [facility] Vascular Lab Routine Carotid stenosis, asymptomatic, bilateral Expected: 01/09/2023 (Approximate), Expires: 01/09/2023 [facility] Work Phone: Comment on above: Expected: 01/09/2023 (Approximate), Expi res: 01/09/2023 Start: 10-12-2022 ADVANCE DIRECTIVE DISCUSSION ADVANCE DIRECTIVE DISCUSSION [facility] Start: 10-12-2022 DEPRESSION ASSESSMENT DEPRESSION ASSESSMENT [facility] Start: 09-12-2022 Provider Instructions for Treatment [facility]; [facility] Work Phone: Start: 08-29-2022 Procedure [facility] Work Phone: Start: 08-29-2022 Provider Instructions for Treatment [facility]; [facility] Work Phone: Start: 04-28-2022 Procedure Education [facility]; [facility] Work Phone: Start: 12-02-2021 Procedure Education [facility]; [facility] Work Phone: Start: 12-02-2021 Provider Instructions for Treatment [facility] Work Phone: Start: 11-21-2021 COVID-19 VACCINE (4 - Booster for Pfizer series) COVID-19 VACCINE (4 - Booster for Pfizer series) [facility] Start: 10-12-2021 ADVANCE DIRECTIVE DISCUSSION ADVANCE DIRECTIVE DISCUSSION [facility] Start: 10-08-2021 Iaadiadoo influenza [facility] Work Phone: Start: 10-08-2021 Procedure Education [facility]; [facility] Work Phone: Start: 08-19-2021 Blood occult fecal hgb deter ia qual feces 1-3 [facility]; [facility] Work Phone: Start: 08-16-2021 Procedure Education [facility]; [facility] Work Phone: Start: 08-16-2021 Provider Instructions for Treatment [facility]; [facility] Work Phone: Start: 08-16-2021 Oncology colorectal screening edie 10 dna markrs [facility]; [facility] Work Phone: Start: 08-16-2021 Assay of iron [facility] Work Phone: Start: 08-13-2021 Provider Instructions for Treatment [facility]; [facility] Work Phone: Start: 06-12-2021 Influenza vaccination INFLUENZA (#1) [facility] Start: 04-29-2021 Procedure Education [facility]; [facility] Work Phone: Start: 04-29-2021 Provider Instructions for Treatment [facility]; [facility] Work Phone: Start: 04-29-2021 Blood count complete auto&auto difrntl wbc [facility]; [facility] Work Phone: Start: 04-29-2021 Basic metabolic panel calcium total [facility]; [facility] Work Phone: Start: 10-30-2020 Procedure Education [facility]; [facility] Work Phone: Start: 10-30-2020 Provider Instructions for Treatment [facility]; [facility] Work Phone: Start: 09-14-2020 Procedure Education [facility] Work Phone: Start: 09-14-2020 Provider Instructions for Treatment [facility] Work Phone: Start: 09-14-2020 Iaadiadoo influenza 2019 Novel Coronavirus (COVID-19), FLACO (11481) [facility] Work Phone: Start: 04-25-2020 Procedure Education [facility] Work Phone: Start: 04-25-2020 Provider Instructions for Treatment [facility] Work Phone: Start: 01-16-2020 Procedure Education [facility] Work Phone: Start: 01-16-2020 Provider Instructions for Treatment [facility] Work Phone: Start: 01-16-2020 Comprehensive metabolic panel [facility] Work Phone: Start: 10-14-2019 Procedure Education [facility] Work Phone: Start: 10-14-2019 Provider Instructions for Treatment [facility] Work Phone: Start: 08-15-2019 Procedure Education [facility] Work Phone: Start: 08-15-2019 Provider Instructions for Treatment [facility] Work Phone: Start: 07-13-2019 Blood count complete automated CBC & PLATELETS (AUTO) (07023) [facility] Work Phone: Start: 07-13-2019 Comprehensive metabolic panel Metabolic Panel, Comprehensive (10052) [facility] Work Phone: Start: 07-13-2019 Fibrin dgradj products d-dimer quantitative D-Dimer (24052) [facility] Work Phone: Start: 07-13-2019 Troponin I.cardiac [Mass/Vol] Troponin I (96261) [facility] Work Phone: Start: 07-13-2019 Creatine kinase mb fraction only CPK MB FRACTION (41017) [facility] Work Phone: Start: 07-13-2019 CRP [Mass/Vol] C-Reactive Protein (46852) [facility] Work Phone: Start: 07-13-2019 Procedure Education [facility] Work Phone: Start: 07-13-2019 Provider Instructions for Treatment [facility] Work Phone: Start: 01-25-2019 Procedure Education [facility] Work Phone: Start: 01-25-2019 Provider Instructions for Treatment [facility] Work Phone: Start: 08-21-2017 Procedure Education [facility] Work Phone: Start: 08-21-2017 Provider Instructions for Treatment [facility] Work Phone: Start: 07-27-2017 Procedure Education [facility] Work Phone: Start: 07-27-2017 Provider Instructions for Treatment [facility] Work Phone: Start: 07-27-2017 Urinalysis qual/semiquant except immunoassays [facility] Work Phone: Start: 07-27-2017 Urine albumin quantitative [facility] Work Phone: Start: 07-27-2017 Cobalamin (Vitamin B12) mass conc VITAMIN B12 AND FOLATES (16209) [facility] Work Phone: Start: 07-27-2017 Cyanocobalamin vitamin b-12 [facility] Work Phone: Start: 07-27-2017 25 hydroxy includes fractions if performed [facility] Work Phone: Start: 07-27-2017 Blood count complete automated [facility] Work Phone: Start: 11-13-2016 Procedure Education [facility] Work Phone: Start: 11-13-2016 Provider Instructions for Treatment [facility] Work Phone: Start: 10-20-2016 Patient Education [facility] Work Phone: Start: 10-20-2016 Procedure Education [facility] Work Phone: Start: 10-20-2016 Provider Instructions for Treatment [facility] Work Phone: Start: 08-07-2016 Procedure Education [facility] Work Phone: Start: 08-07-2016 Provider Instructions for Treatment [facility] Work Phone: Start: 05-13-2016 Urine albumin quantitative [facility] Work Phone: Start: 05-13-2016 Hemoglobin A1c/Hemoglobin.total mass fraction (Bld) HGB A1C (66757) [facility] Work Phone: Start: 05-13-2016 Hemoglobin glycosylated a1c [facility] Work Phone: Start: 05-13-2016 Cobalamin (Vitamin B12) mass conc VITAMIN B12 AND FOLATES (08003) [facility] Work Phone: Start: 05-13-2016 Cyanocobalamin vitamin b-12 [facility] Work Phone: Start: 05-13-2016 Comprehensive metabolic panel [facility] Work Phone: Start: 05-13-2016 Blood count complete auto&auto difrntl wbc [facility] Work Phone: Start: 05-13-2016 Lipid panel [facility] Work Phone: Start: 05-13-2016 Assay of thyroid stimulating hormone tsh [facility] Work Phone: Start: 05-13-2016 Thyrotropin Qn TSH (THYROID STIMULATING HORMONE) (42036) [facility] Work Phone: Start: 05-13-2016 25 hydroxy includes fractions if performed [facility] Work Phone: Start: 05-13-2016 Procedure Education [facility] Work Phone: Start: 05-13-2016 Provider Instructions for Treatment [facility] Work Phone: Start: 03-05-2016 Procedure Education [facility] Work Phone: Start: 12-03-2015 Provider Instructions for Treatment [facility] Work Phone: Start: 05-14-2015 Procedure Education [facility] Work Phone: Start: 05-14-2015 Comprehensive metabolic panel [facility] Work Phone: Start: 05-14-2015 Lipid panel [facility] Work Phone: Start: 04-04-2015 Patient Education [facility] Work Phone: Start: 04-04-2015 Provider Instructions for Treatment [facility] Work Phone: Start: 04-04-2015 Blood count complete auto&auto difrntl wbc [facility] Work Phone: Start: 04-04-2015 Assay of thyroid stimulating hormone tsh [facility] Work Phone: Start: 04-04-2015 Thyrotropin Qn TSH (36168) [facility] Work Phone: Start: 04-04-2015 Lipid panel [facility] Work Phone: Start: 04-04-2015 Comprehensive metabolic panel [facility] Work Phone: Start: 04-04-2015 Cul bact stool aerobic isol salmonella&shigell [facility] Work Phone: Start: 04-04-2015 Blood occult peroxidase actv qual feces 1 deter [facility] Work Phone: Start: 04-04-2015 Culture bacterial any source anaerobic iso&id [facility] Work Phone: Start: 04-04-2015 Leukocyte assmt fecal qual/semiquantitative [facility] Work Phone: Start: 04-04-2015 Ova&parasites direct smears concentration & id [facility] Work Phone: Start: 2015 BONE DENSITY BONE DENSITY [facility] Start: 2015 PNEUMOCOCCAL: 65+ (1 - PCV) PNEUMOCOCCAL: 65+ (1 - PCV) [facility] Start: 2015 PNEUMOVAX AGE 65 AND OVER WITH 5YR LOOKBACK (#1) PNEUMOVAX AGE 65 AND OVER WITH 5YR LOOKBACK (#1) [facility] Start: 2015 Screening for osteoporosis Bone Density Screening [facility] Start: 01-17-2013 Patient Education [facility] Work Phone: Start: 01-12-2013 Calcium urine quantitative timed specimen [facility] Work Phone: Start: 01-04-2013 Calcium mass conc CALCIUM SERUM (58736) [facility] Work Phone: Start: 01-04-2013 Calcium total [facility] Work Phone: Start: 12-24-2012 Calcium mass conc CALCIUM SERUM (54060) [facility] Work Phone: Start: 12-24-2012 Calcium total [facility] Work Phone: Start: 09-27-2012 Patient Education [facility] Work Phone: Start: 09-27-2012 Protein electrophoretic fractj&quantj serum [facility] Work Phone: Start: 09-27-2012 Iaadiadoo influenza [facility] Work Phone: Start: 09-08-2012 Provider Instructions for Treatment [facility] Work Phone: Start: 10-17-2011 Provider Instructions for Treatment [facility] Work Phone: Start: 08-04-2011 Comprehensive metabolic panel [facility] Work Phone: Start: 08-04-2011 25 hydroxy includes fractions if performed [facility] Work Phone: Start: 08-04-2011 Lipid panel [facility] Work Phone: Start: 04-07-2011 Lipid panel [facility] Work Phone: Start: 04-07-2011 Assay of thyroid stimulating hormone tsh [facility] Work Phone: Start: 04-07-2011 Thyrotropin Qn TSH (24517) [facility] Work Phone: Start: 04-07-2011 Calcium mass conc CALCIUM SERUM (27946) [facility] Work Phone: Start: 04-07-2011 Calcium total [facility] Work Phone: Start: 04-07-2011 25 hydroxy includes fractions if performed [facility] Work Phone: Start: 10-08-2010 Provider Instructions for Treatment [facility] Work Phone: Start: 10-08-2010 Calcium mass conc Calcium Serum (67569) [facility] Work Phone: Start: 10-08-2010 Calcium total [facility] Work Phone: Start: 10-08-2010 25 hydroxy includes fractions if performed [facility] Work Phone: Start: 06-24-2010 Lipid panel [facility] Work Phone: Start: 06-24-2010 Assay of parathormone [facility] Work Phone: Start: 06-24-2010 Comprehensive metabolic panel [facility] Work Phone: Start: 06-24-2010 Assay of thyroid stimulating hormone tsh [facility] Work Phone: Start: 06-24-2010 Thyrotropin Qn TSH (55184) [facility] Work Phone: Start: 04-23-2010 Provider Instructions for Treatment [facility] Work Phone: Start: 03-06-2010 Provider Instructions for Treatment [facility] Work Phone: Start: 2010 RSV Vaccine (1 - 1-dose 60+ series) RSV Vaccine (1 - 1-dose 60+ series) [facility] Start: 01-16-2010 Provider Instructions for Treatment [facility] Work Phone: Start: 09-27-2009 Provider Instructions for Treatment [facility] Work Phone: Start: 08-15-2009 Provider Instructions for Treatment [facility] Work Phone: Start: 06-25-2009 Patient Education [facility] Work Phone: Start: 06-25-2009 Provider Instructions for Treatment [facility] Work Phone: Start: 04-25-2009 Assay of triiodothyronine t3 free [facility] Work Phone: Start: 04-25-2009 T3 free mass conc T3, FREE (TRIDOTHYRONINE) (74698) [facility] Work Phone: Start: 04-25-2009 Assay of free thyroxine [facility] Work Phone: Start: 04-25-2009 T4 free mass conc T4, FREE (THYROXINE) (56843) [facility] Work Phone: Start: 04-25-2009 Microsomal antibodies each [facility] Work Phone: Start: 04-25-2009 Assay of thyroid stimulating hormone tsh [facility] Work Phone: Start: 04-25-2009 Thyrotropin Qn TSH (57274) [facility] Work Phone: Start: 04-25-2009 Hepatic function panel [facility] Work Phone: Start: 04-25-2009 Lipid panel [facility] Work Phone: Start: 04-25-2009 25 hydroxy includes fractions if performed [facility] Work Phone: Start: 01-24-2009 25 hydroxy includes fractions if performed [facility] Work Phone: Start: 01-24-2009 Lipid panel [facility] Work Phone: Start: 01-24-2009 Urnls dip stick/tablet rgnt auto w/o microscopy [facility] Work Phone: Start: 01-24-2009 Assay of thyroid stimulating hormone tsh [facility] Work Phone: Start: 01-24-2009 Thyrotropin Qn TSH (34360) [facility] Work Phone: Start: 01-24-2009 Comprehensive metabolic panel [facility] Work Phone: Start: 01-24-2009 Blood count manual cell count each [facility] Work Phone: Start: 12-12-2008 Provider Instructions for Treatment [facility] Work Phone: Start: 08-11-2008 Provider Instructions for Treatment [facility] Work Phone: Start: 12-30-2007 Provider Instructions for Treatment [facility] Work Phone: Start: 12-21-2007 Lipid panel [facility] Work Phone: Start: 12-21-2007 Hepatic function panel [facility] Work Phone: Start: 09-07-2007 Provider Instructions for Treatment [facility] Work Phone: Start: 08-30-2007 Provider Instructions for Treatment [facility] Work Phone: Start: 07-05-2007 Comprehensive metabolic panel [facility] Work Phone: Start: 07-05-2007 Hepatic function panel [facility] Work Phone: Start: 07-05-2007 Lipid panel [facility] Work Phone: Start: 02-10-2007 Provider Instructions for Treatment [facility] Work Phone: Start: 12-22-2006 Hepatic function panel [facility] Work Phone: Comment on above: 3 mos Start: 12-22-2006 Lipid panel [facility] Work Phone: Start: 12-22-2006 Provider Instructions for Treatment [facility] Work Phone: Start: 08-26-2006 Provider Instructions for Treatment [facility] Work Phone: Start: 08-26-2006 Lipid panel [facility] Work Phone: Start: 08-26-2006 Hepatic function panel [facility] Work Phone: Comment on above: 3 months Start: 08-26-2006 1 25 dihydroxy includes fractions if performed [facility] Work Phone: Start: 01-31-2000 SHINGRIX VACCINE (1 of 2) SHINGRIX VACCINE (1 of 2) [facility] Start: 1995 COLOGUARD (FIT-DNA) COLOGUARD (FIT-DNA) [facility] Start: 1995 Colonoscopy COLONOSCOPY [facility] Start: 1995 COLORECTAL CANCER SCREENING COLORECTAL CANCER SCREENING [facility] Start: [address] COLONOGRAPHY [facility] Start: 1995 DIABETES SCREEN DIABETES SCREEN [facility] Start: 1995 Diabetes Screening Diabetes Screening [facility] Start: 1995 FECAL OCCULT BLOOD FECAL OCCULT BLOOD [facility] Start: 1995 Lipid panel Lipid Screening [facility] Start: 1995 LIPID SCREEN LIPID SCREEN [facility] Start: 1995 Screening for malignant neoplasm of colon [facility] Start: 1995 SIGMOIDOSCOPY SIGMOIDOSCOPY [facility] Start: 1990 Mammography MAMMOGRAM [facility] Start: 1990 Screening for malignant neoplasm of breast Mammogram Screening [facility] Start: 1969 Urine microalbumin profile [facility] Start: 01-31-1968 HEPATITIS C SCREENING HEPATITIS C SCREENING [facility] Start: 01-31-1968 Hepatitis C screening Hepatitis C Screening [facility] Start: 1962 Adult depression screening assessment DEPRESSION SCREENING [facility] Work Phone: [facility] Work Phone: [facility] Work Phone: [facility] Work Phone[facility] Work Phone[facility] Work Phone: [facility] Work Phone: [facility] Work Phone: [facility] Work Phone: [facility] Work Phone: [facility] Work Phone: [facility] Work Phone: [facility] Work Phone: [facility] Work Phone: [facility] Work Phone: [facility]: [facility] Phone: [facility] Work Phone: [facility] Work Phone: [facility] Phone: [facility] Work Phone: [facility] Phone: [facility] Work Phone: [facility] Work Phone: [facility] Work Phone: [facility] Work Phone: [facility] Phone: [facility] Work Phone: [facility] Work Phone: [facility] Phone: [facility] Work Phone: [facility] Work Phone: [facility] Work Phone: [facility] Work Phone: [facility]: [facility] Work Phone: [facility] Work Phone: [facility] Work Phone: [facility] Work Phone: [facility] Work Phone: [facility] Work Phone: [facility] Work Phone: [facility] Work Phone: [facility] Work Phone[facility] Work Phone: [facility] Work Phone: [facility] Work Phone: [facility] Work Phone: [facility] Work Phone: [facility] Work Phone: Immunizations Immunization Date Immunization Notes Care Provider Fa cili 09-26-2021 COVID-Pfizer (10 MCG/0.2 ML) Sushma Mueller [employer] Work Phone: [facility]; [facility] Work Phone: 01-07-2021 COVID-Pfizer (30 MCG/0.3 ML) Sushma Mueller [employer] Work Phone: [facility] Work Phone: 12-17-2020 COVID-Pfizer (30 MCG TRS-SUCR) Sushma Mueller [employer] Work Phone: [facility]; [facility] Work Phone: Payers Date Payer Category Payer Private Health Insurance [employer] A ETNA MEDICARE SUPPLEMENT [id number] 2018-Present [phone] [address] [address] [place] [address] Indemnity [id number] 2018 Private Health Insurance [employer] A ETNA MEDICARE SUPPLEMENT [id number] 2018-Present [phone] [address] [address] [place] [address] Indemnity [id number] 2018 Private Health Insurance [facility] [id number] 2015 Private Health Insurance [id number] 2015 Medicare MEDICARE MEDICAR E A AND B [id number] 2015-Present [phone] [place] [address] Medicare [id number] 2015 Medicare MEDICARE MEDICAR E A AND B [id number] 2015-Present [phone] [place] [address] Medicare [id number] 2015 Medicare [id number] 2006 Unknown [id number] 1950 Unknown [id number] 1950 Unknown [id number] Unknown Social History Date Type Detail Facility Start: 01-09-2022 End: 02-09-2024 Alcohol Use Never smoker [facility] Work Phone: Comment on above: Occasional alcohol u se 2 QD Tobacco use: Never smoker. [facility] Work Phone: Comment on above: 11/05/11 Never smoker. [facility] Work Phone: Start: 12-05-2019 End: 02-09-2024 Tobacco smoking status NHIS Never smoked tobacco [facility] Start: 12-05-2019 End: 02-09-2024 Tobacco use and exposure Smokeless tobacco non-user [facility] Start: 01-09-2022 End: 02-09-2024 Alcohol intake Current drinker of alcohol (finding) [facility] Start: 1950 Sex Assigned At Not on file [facility] Start: 12-30-2021 End: 01-09-2022 Exposure to SARS-CoV-2 (event) Not sure [facility] Sex Assigned At Sex [facility] Start: 01-09-2022 End: 02-09-2024 Tobacco use panel [facility] National Score (1-100), lower number is lower risk Not on file [facility] Goals Date Patient Goal Desired Activity /State Personal health goal Functional Status Date Assessment Result Facility 08-21-2023 Functional Status Awake, Up ad jaylon [facility] 08-21-2023 Functional Status Maintained, Less than 8 hours [facility] Mental Status Date Assessment Result Facility 08-21-2023 Mental Status Oriented x 4 [facility] Clinical Notes 01-09-2022 to 02-09-2024 Maricruz Armstrong DO - 02/09/2024 9:28 AM EDTTelephone Encounter - Erica Fierro - 12/23/2023 8:29 AM EDT Note Date & Type Note Facility 02-09-2024 Note HNO ID: [id number] Author: MARICRUZ ARMSTRONG DO Service: ? Author Type: Physician Type: Progress Notes Filed: 02/09/2024 11:54 Note Text: [facility] [place] DEPARTMENT OF VASCULAR SURGERY OUTPATIENT VISIT DATE February 09, 2024 OUTPATIENT VISIT TYPE ESTABLISHED SERVICE DATE: 02/09/2024 SERVICE TIME: 9:30 AM PRIMARY CARE PHYSICIAN: Cindy Mcpherson CNP HISTORY OF PRESENT ILLNESS: Ms. Garcia is a 74 year old female who presents today for a vascular surgery follow-up visit for carotid artery stenosis. She denies focal neurologic complaints. PAST MEDICAL HISTORY Diagnosis Date Arthralgia B12 deficiency Back pain Carotid stenosis, bilateral Chest pain Dizziness and giddiness Dysthymic disorder Elevated d-dimer Fatigue Fibromyalgia H/O parathyroidectomy H/O total thyroidectomy Has a tremor Headache HHD (hypertensive heart disease) HTN (hypertension) Hypercholesteremia Hyperlipidemia Hypothyroidism Intestinal polyp Left hip pain Myalgia Parkinsons disease (HCC) Sleep apnea SOB (shortness of breath) Thyromegaly Vitamin D deficiency PAST SURGICAL HISTORY Procedure Laterality Date CHOLECYSTECTOMY HYSTERECTOMY THYROIDECTOMY TOTAL/COMPLETE TONSILLECTOMY HX SOCIAL HISTORY Social History Tobacco Use Smoking status: Never Smokeless tobacco: Never Vaping Use Vaping Use: Never used Substance Use Topics Alcohol use: Yes MEDICATIONS: ascorbic acid, vitamin C, (VITAMIN C) 500 mg tablet Take 500 mg by mouth once daily. ZINC ORAL Take by mouth once daily. mecobalamin, vitamin B12, 1,000 mcg chew mecobalamin Mecobalamin (B12 Active) 1,000 mcg tablet,chewable Active 100 MCG PO DAILY April 18, 2020 9:41am 04-18-2020 [facility] ([id number]) levothyroxine 112 mcg tab 112 mcg, levothyroxine 25 mcg tab 25 mcg Take 1 tablet by mouth DAILY (6 AM). carbidopa-levodopa (SINEMET 25-100) 25-100 mg per tablet Take 1 tablet by mouth three times daily. aspirin, enteric coated (ASPIRIN, ENTERIC COATED) 81 mg EC tablet Take 81 mg by mouth once daily. ergocalciferol 50,000 unit capsule (VITAMIN D2, DRISDOL) Take 50,000 Units by mouth one time a week. Garlic (GARLIC OIL) 1,000 mg cap Take 1,000 mg by mouth once daily. calcium carbonate (CALCIUM 600) 600 mg calcium (1,500 mg) tab Take 600 mg by mouth. irbesartan (AVAPRO) 300 mg tablet Take 300 mg by mouth daily at bedtime. omega-3 fatty acids 1,000 mg cap Take 1,000 mg by mouth once daily. Magnesium Oxide 500 mg cap Take 500 mg by mouth once daily. ferrous sulfate (IRON) 325 mg (65 mg iron) tablet Take 325 mg by mouth daily with breakfast. (Patient not taking: Reported on 02/09/2024) meloxicam (MOBIC) 7.5 mg tablet Take 7.5 mg by mouth once daily. (Patient not taking: Reported on 01/09/2022) metoprolol tartrate, short acting, (LOPRESSOR) 50 mg tablet Take 50 mg by mouth. (Patient not taking: Reported on 01/09/2022) rOPINIRole (REQUIP) 0.5 mg tablet Take 1 tablet by mouth three times daily. (Patient not taking: Reported on 01/09/2022) Hydrochlorothiazide 12.5 mg capsule Take 12.5 mg by mouth once daily. (Patient not taking: Reported on 01/09/2022 ) ALLERGIES: ALLERGIES Allergen Reactions Codeine Unknown Crestor [Rosuvastat* Unknown, Myalgia Lipitor [Atorvastat* Myalgia Zetia [Ezetimibe] Myalgia PHYSICAL EXAM: BP 125/74 (BP Site: Left Arm, BP Position: Sitting, BP Cuff Size: Extra Large Adult) Pulse 82 SpO2 95% Gen- no distress Neuro- no focal deficit Diagnostic tests reviewed for today's visit: Most recent labs Most recent imaging Carotid Duplex Compared to prior study of 12/16/2022, No significant change. RIGHT SIDE Common carotid artery: Plaque visualized without evidence of hemodynamically significant stenosis. Internal carotid artery: 20-39% stenosis. Vertebral artery: Patent and antegrade flow noted. LEFT SIDE Internal carotid artery: 20-39% stenosis. Vertebral artery: Patent and antegrade flow noted. IMPRESSION: Ms. Garcia is a 74 year old female with asymptomatic carotid disease . PLAN and RECOMMENDATIONS: Recommend follow up in 2 years with repeat imaging Continue current medications- blood pressure and cholesterol control SIGNATURE: Maricruz Armstrong DO PATIENT NAME: Carmen Garcia DATE: February 09, 2024 TIME: 9:30 AM [facility] 02-09-2024 History of Presen t illness Narrative Images from the original note were not included. [facility] [place] DEPARTMENT OF VASCULAR SURGERY OUTPATIENT VISIT DATE February 09, 2024 OUTPATIENT VISIT TYPE ESTABLISHED SERVICE DATE: 02/09/2024 SERVICE TIME: 9:30 AM PRIMARY CARE PHYSICIAN: Cindy Mcpherson CNP HISTORY OF PRESENT ILLNESS: Ms. Garcia is a 74 year old female who presents today for a vascular surgery follow-up visit for carotid artery stenosis. She denies focal neurologic complaints. PAST MEDICAL HISTORY Diagnosis Date Arthralgia B12 deficiency Back pain Carotid stenosis, bilateral Chest pain Dizziness and giddiness Dysthymic disorder Elevated d-dimer Fatigue Fibromyalgia H/O parathyroidectomy H/O total thyroidectomy Has a tremor Headache HHD (hypertensive heart disease) HTN (hypertension) Hypercholesteremia Hyperlipidemia Hypothyroidism Intestinal polyp Left hip pain Myalgia Parkinsons disease (HCC) Sleep apnea SOB (shortness of breath) Thyromegaly Vitamin D deficiency PAST SURGICAL HISTORY Procedure Laterality Date CHOLECYSTECTOMY HYSTERECTOMY THYROIDECTOMY TOTAL/COMPLETE TONSILLECTOMY HX SOCIAL HISTORY Social History Tobacco Use Smoking status: Never Smokeless tobacco: Never Vaping Use Vaping Use: Never used Substance Use Topics Alcohol use: Yes MEDICATIONS: ascorbic acid, vitamin C, (VITAMIN C) 500 mg tablet Take 500 mg by mouth once daily. ZINC ORAL Take by mouth once daily. mecobalamin, vitamin B12, 1,000 mcg chew mecobalamin Mecobalamin (B12 Active) 1,000 mcg tablet,chewable Active 100 MCG PO DAILY April 18, 2020 9:41am 04-18-2020 [facility] ([id number]) levothyroxine 112 mcg tab 112 mcg, levothyroxine 25 mcg tab 25 mcg Take 1 tablet by mouth DAILY (6 AM). carbidopa-levodopa (SINEMET 25-100) 25-100 mg per tablet Take 1 tablet by mouth three times daily. aspirin, enteric coated (ASPIRIN, ENTERIC COATED) 81 mg EC tablet Take 81 mg by mouth once daily. ergocalciferol 50,000 unit capsule (VITAMIN D2, DRISDOL) Take 50,000 Units by mouth one time a week. Garlic (GARLIC OIL) 1,000 mg cap Take 1,000 mg by mouth once daily. calcium carbonate (CALCIUM 600) 600 mg calcium (1,500 mg) tab Take 600 mg by mouth. irbesartan (AVAPRO) 300 mg tablet Take 300 mg by mouth daily at bedtime. omega-3 fatty acids 1,000 mg cap Take 1,000 mg by mouth once daily. Magnesium Oxide 500 mg cap Take 500 mg by mouth once daily. ferrous sulfate (IRON) 325 mg (65 mg iron) tablet Take 325 mg by mouth daily with breakfast. (Patient not taking: Reported on 02/09/2024) meloxicam (MOBIC) 7.5 mg tablet Take 7.5 mg by mouth once daily. (Patient not taking: Reported on 01/09/2022) metoprolol tartrate, short acting, (LOPRESSOR) 50 mg tablet Take 50 mg by mouth. (Patient not taking: Reported on 01/09/2022) rOPINIRole (REQUIP) 0.5 mg tablet Take 1 tablet by mouth three times daily. (Patient not taking: Reported on 01/09/2022) Hydrochlorothiazide 12.5 mg capsule Take 12.5 mg by mouth once daily. (Patient not taking: Reported on 01/09/2022 ) ALLERGIES: ALLERGIES Allergen Reactions Codeine Unknown Crestor [Rosuvastat* Unknown, Myalgia Lipitor [Atorvastat* Myalgia Zetia [Ezetimibe] Myalgia PHYSICAL EXAM: BP 125/74 (BP Site: Left Arm, BP Position: Sitting, BP Cuff Size: Extra Large Adult) Pulse 82 SpO2 95% Gen- no distress Neuro- no focal deficit Diagnostic tests reviewed for today's visit: Most recent labs Most recent imaging Carotid Duplex Compared to prior study of 12/16/2022, No significant change. RIGHT SIDE Common carotid artery: Plaque visualized without evidence of hemodynamically significant stenosis. Internal carotid artery: 20-39% stenosis. Vertebral artery: Patent and antegrade flow noted. LEFT SIDE Internal carotid artery: 20-39% stenosis. Vertebral artery: Patent and antegrade flow noted. IMPRESSION: Ms. Garcia is a 74 year old female with asymptomatic carotid disease . PLAN and RECOMMENDATIONS: Recommend follow up in 2 years with repeat imaging Continue current medications- blood pressure and cholesterol control SIGNATURE: Maricruz Armstrong DO PATIENT NAME: Carmen Garcia DATE: February 09, 2024 TIME: 9:30 AM documented in this encounter [facility] 12-23-2023 Miscellaneous Notes Spoke to Pt about her need for an annual follow up visit. Pt wanted to remain w/ vascular in [place]. Provided Dr. Armstrong's name & phone #[phone]. documented in this encounter [facility] 08-21-2023 Evaluation + Plan note Extrac luz from: Title:Clinical Document Author:DAMIAN HARTMANN Date:08/21/23 [facility] ADMISSION HISTORY AN D PHYSICIAL CHIEF COMPLAINT: HISTORY OF PRESENT ILLNESS: REVIEW OF SYSTEMS: ACTIVE PROBLEMS: (5) Hypercalcemia (665430815) HYPERTENSION (997.91) Hypothyroidism (64849773) Parkinson disease (31432195) Sleep apnea (274862551) MEDICATIONS: Active Inpt Meds: None Active PRN Meds: None One Time Meds: None Active IV Meds: Lactated Ringers Infusion 1,000 mL (LR 1,000 mL) Start: 08/21/23 7:59:00 EST, Rate: 50 mL/hr, 08/21/23 7:59:00 EST ALLERGIES: (4) Bleach Crestor Lipitor Zetia FAMILY HISTORY: SOCIAL HISTORY: PHYSICAL EXAM: VITALS: [id number](kg) 08/21 08:2136.4--[id number]/10 90.9 24 Hr Tmax: 36.4 at 08/21 08:21 36 Hr Tmax: 36.4 at 08/21 08:21 Vital Signs are the last 5 in the past 48 hours. Weights display the last 5 within 7 days. Initial Wt: 08/21 90.9 kg 200 lb Current Wt: 08/21 90.9 kg 200 lb GENERAL: HEENT: CARDIOVASCULAR: RESPIRATORY: ABDOMEN: EXREMETIES: NEUROLOGICAL: PSYCHIATRIC: LABS: No 36hr Lab Data DIAGNOSTICS: IMPRESSION: PLAN: History and Physical Update I have examined the patient; reviewed the H&P and there are no changes to the H&P unless noted below. Extracted from: Title:Clinical Document Author:DAMIAN HARTMANN Date:08/21/23 [facility] AD[facility] H[facility]ORY AN D PHYSICIAL CHIEF COMPLAINT: HISTORY OF PRESENT ILLNESS: REVIEW OF SYSTEMS: ACTIVE PROBLEMS: (5) Hypercalcemia (508178287) HYPERTENSION (997.91) Hypothyroidism (83003987) Parkinson disease (97704632) Sleep apnea (091216796) MEDICATIONS: Active Inpt Meds: None Active PRN Meds: None One Time Meds: None Active IV Meds: Lactated Ringers Infusion 1,000 mL (LR 1,000 mL) Start: 08/21/23 7:59:00 EST, Rate: 50 mL/hr, 08/21/23 7:59:00 EST ALLERGIES: (4) Bleach Crestor Lipitor Zetia FAMILY HISTORY: SOCIAL HISTORY: PHYSICAL EXAM: VITALS: [id number](kg) 08/21 08:2136.4--[id number]/10 90.9 24 Hr Tmax: 36.4 at 08/21 08:21 36 Hr Tmax: 36.4 at 08/21 08:21 Vital Signs are the last 5 in the past 48 hours. Weights display the last 5 within 7 days. Initial Wt: 08/21 90.9 kg 200 lb Current Wt: 08/21 90.9 kg 200 lb GENERAL: HEENT: CARDIOVASCULAR: RESPIRATORY: ABDOMEN: EXREMETIES: NEUROLOGICAL: PSYCHIATRIC: LABS: No 36hr Lab Data DIAGNOSTICS: IMPRESSION: PLAN: History and Physical Update I have examined the patient; reviewed the H&P and there are no changes to the H&P unless noted below. [facility] 11-10-2023 Hospital Discharge instructions Patient Education 08/21/2023 10:11:28 Monitored Anesthesia Care, Care After Monitored Anesthesia Care, Care After These instructions provide you with information about caring for yourself after your procedure. Your health care provider may also give you more specific instructions. Your treatment has been plannedaccording to current medical practices, but problems sometimes occur. Call your health care provider if you have any problems or questions after your procedure. What can I expect after the procedure? After your procedure, you may: Feel sleepy for several hours. Feel clumsy and have poor balance for several hours. Feel forgetful about what happened after the procedure. Have poor judgment for several hours. Feel nauseous or vomit. Have a sore throat if you had a breathing tube during the procedure. Follow these instructions at home: For at least 24 hours after the procedure: Have a responsible adult stay with you. It is important to have someone help care for you until youare awake and alert. Rest as needed. Do not: ?Participate in activities in which you could fall or become injured. ?Drive. ?Use heavy machinery. ?Drink alcohol. ?Take sleeping pills or medicines that cause drowsiness. ?Make important decisions or sign legal documents. ?Take care of children on your own. Eating and drinking Follow the diet that is recommended by your health care provider. If you vomit, drink water, juice, or soup when you can drink without vomiting. Make sure you have little or no nausea before eating solid foods. General instructions Take iady-jkf-gnnhslv and prescription medicines only as told by your health care provider. If you have sleep apnea, surgery and certain medicines can increase your risk for breathing problems. Follow instructions from your health care provider about wearing your sleep device: ?Anytime you are sleeping, including during daytime naps. ?While taking prescription pain medicines, sleeping medicines, or medicines that make you drowsy. If you smoke, do not smoke without supervision. Keep all follow-up visits as told by your health care provider. This is important. Contact a health care provider if: You keep feeling nauseous or you keep vomiting. You feel light-headed. You develop a rash. You have a fever. Get help right away if: You have trouble breathing. Summary For several hours after your procedure, you may feel sleepy and have poor judgment. Have a responsible adult stay with you for at least 24 hours or until you are awake and alert. This information is not intended to replace advice given to you by your health care provider. Make sure you discuss any questions you have with your health care provider. Document Released: 01/18/2017 Document Revised: 12/27/2018 Document Reviewed: 01/18/2017 [employer] Patient Education 2020 [employer]. 08/21/2023 10:11:25 Colonoscopy, Adult, Care After Colonoscopy, Adult, Care After This sheet gives you information about how to care for yourself after your procedure. Your health care provider may also give you more specific instructions. If you have problems or questions, contact your health care provider. What can I expect after the procedure? After the procedure, it is common to have: A small amount of blood in your stool for 24 hours after the procedure. Some gas. Mild abdominal cramping or bloating. Follow these instructions at home: General instructions For the first 24 hours after the procedure: ?Do not drive or use machinery. ?Do not sign important documents. ?Do not drink alcohol. ?Do your regular daily activities at a slower pace than normal. ?Eat soft, sxkf-aa-fsigff foods. Take wmvc-jth-tqfklrc or prescription medicines only as told by your health care provider. Relieving cramping and bloating Try walking around when you have cramps or feel bloated. Apply heat to your abdomen as told by your health care provider. Use a heat source that your healthcare provider recommends, such as a moist heat pack or a heating pad. ?Place a towel between your skin and the heat source. ?Leave the heat on for 20 30 minutes. ?Remove the heat if your skin turns bright red. This is especially important if you are unable to feel pain, heat, or cold. You may have a greater risk of getting burned. Eating and drinking Drink enough fluid to keep your urine pale yellow. Resume your normal diet as instructed by your health care provider. Avoid heavy or fried foods thatare hard to digest. Avoid drinking alcohol for as long as instructed by your health care provider. Contact a health care provider if: You have blood in your stool 2 3 days after the procedure. Get help right away if: You have more than a small spotting of blood in your stool. You pass large blood clots in your stool. Your abdomen is swollen. You have nausea or vomiting. You have a fever. You have increasing abdominal pain that is not relieved with medicine. Summary After the procedure, it is common to have a small amount of blood in your stool. You may also have mild abdominal cramping and bloating. For the first 24 hours after the procedure, do not drive or use machinery, sign important documents, or drink alcohol. Contact your health care provider if you have a lot of blood in your stool, nausea or vomiting, a fever, or increased abdominal pain. This information is not intended to replace advice given to you by your health care provider. Make sure you discuss any questions you have with your health care provider. Document Released: 05/12/2005 Document Revised: 07/21/2018 Document Reviewed: 12/09/2016 [employer] Patient Education 2020 [employer] Follow Up Care 07/28/2023 07:58:01 With:DAMIAN HARTMANN MD Address: [address] [facility] [address] [place] [address] [phone] When:Within 4 Year(s) Comments:repeat colonoscopy in 4-5 years [facility] 11-10-2023 Note Discharge Instructions Thank you for allowing [facility] to assist you with your healthcare needs. The following is importantdischarge information regarding your hospital visit. Your Care Team CINDY MCPHERSON APRN-SHELIA Hartmann What to do next Follow Up Appointments Follow Up with DAMIAN HARTMANN MD When In 4 years Why: repeat colonoscopy in 4-5 years Where: [address] [facility] [address] [place] [address] [phone] The Following Activity and Diet Have Been Ordered for You Discharge Activity - Ordered -- NO activity restrictions, 08/21/23 10:03:00 EST Discharge Diet - Ordered -- Follow the post-operative/post-procedure diet instructions provided by your physician's office.,08/21/23 10:03:00 EST Allergies Bleach (tightness of throat) Crestor Lipitor Zetia Medications Please ask your primary doctor or pharmacist before taking any other medication not listed, including over the counter drugs, herbal medications, vitamins and or supplements as they may interact withyour home medications. What How Much When Instructions Last Dose Unchanged aspirin (aspirin 81 mg oral delayed release tablet) 1 tab(s) by mouth Every day Unchanged calcium citrate (Citracal 500 mg oral tablet) 500 Milligram by mouth Two (2) times a day Unchanged carbidopa-levodopa (carbidopa-levodopa 25 mg-100 mg oral tablet) 2 tab(s) by mouth Three (3) times a day Unchanged cholecalciferol (Vitamin D3 1250 mcg (50,000 intl units) oral capsule) 1 cap by mouth Once a month Unchanged garlic (Garlic oral capsule) 1 cap by mouth Every day Unchanged irbesartan (Avapro 300 mg oral tablet) 1 tab(s) by mouth Every day Unchanged levothyroxine (levothyroxine 125 mcg (0.125 mg) oral tablet) 1 tab(s) by mouth Once a day before a meal Unchanged omega-3 polyunsaturated fatty acids (Fish Oil 1200 mg oral capsule) 1 cap by mouth Every day Please take this list to your next doctor s visit. Bring all medications you take, including over the counter medications, herbals and other supplements with you to your doctor s visit. Patients and families are reminded to discard old lists and to update any records with all medication providers or retail pharmacies. Education Materials Monitored Anesthesia Care, Care After These instructions provide you with information about caring for yourself after your procedure. Your health care provider may also give you more specific instructions. Your treatment has been plannedaccording to current medical practices, but problems sometimes occur. Call your health care provider if you have any problems or questions after your procedure. What can I expect after the procedure? After your procedure, you may: Feel sleepy for several hours. Feel clumsy and have poor balance for several hours. Feel forgetful about what happened after the procedure. Have poor judgment for several hours. Feel nauseous or vomit. Have a sore throat if you had a breathing tube during the procedure. Follow these instructions at home: For at least 24 hours after the procedure: Have a responsible adult stay with you. It is important to have someone help care for you until youare awake and alert. Rest as needed. Do not: ? Participate in activities in which you could fall or become injured. ? Drive. ? Use heavy machinery. ? Drink alcohol. ? Take sleeping pills or medicines that cause drowsiness. ? Make important decisions or sign legal documents. ? Take care of children on your own. Eating and drinking Follow the diet that is recommended by your health care provider. If you vomit, drink water, juice, or soup when you can drink without vomiting. Make sure you have little or no nausea before eating solid foods. General instructions Take nieb-nre-njzzzjj and prescription medicines only as told by your health care provider. If you have sleep apnea, surgery and certain medicines can increase your risk for breathing problems. Follow instructions from your health care provider about wearing your sleep device: ? Anytime you are sleeping, including during daytime naps. ? While taking prescription pain medicines, sleeping medicines, or medicines that make you drowsy. If you smoke, do not smoke without supervision. Keep all follow-up visits as told by your health care provider. This is important. Contact a health care provider if: You keep feeling nauseous or you keep vomiting. You feel light-headed. You develop a rash. You have a fever. Get help right away if: You have trouble breathing. Summary For several hours after your procedure, you may feel sleepy and have poor judgment. Have a responsible adult stay with you for at least 24 hours or until you are awake and alert. This information is not intended to replace advice given to you by your health care provider. Make sure you discuss any questions you have with your health care provider. Document Released: 01/18/2017 Document Revised: 12/27/2018 Document Reviewed: 01/18/2017 [employer] Patient Education 2020 [employer]. Colonoscopy, Adult, Care After This sheet gives you information about how to care for yourself after your procedure. Your health care provider may also give you more specific instructions. If you have problems or questions, contact your health care provider. What can I expect after the procedure? After the procedure, it is common to have: A small amount of blood in your stool for 24 hours after the procedure. Some gas. Mild abdominal cramping or bloating. Follow these instructions at home: General instructions For the first 24 hours after the procedure: ? Do not drive or use machinery. ? Do not sign important documents. ? Do not drink alcohol. ? Do your regular daily activities at a slower pace than normal. ? Eat soft, kvio-tq-tlldiw foods. Take apbo-prl-hnqroew or prescription medicines only as told by your health care provider. Relieving cramping and bloating Try walking around when you have cramps or feel bloated. Apply heat to your abdomen as told by your health care provider. Use a heat source that your healthcare provider recommends, such as a moist heat pack or a heating pad. ? Place a towel between your skin and the heat source. ? Leave the heat on for 20 30 minutes. ? Remove the heat if your skin turns bright red. This is especially important if you are unable to feel pain, heat, or cold. You may have a greater risk of getting burned. Eating and drinking Drink enough fluid to keep your urine pale yellow. Resume your normal diet as instructed by your health care provider. Avoid heavy or fried foods thatare hard to digest. Avoid drinking alcohol for as long as instructed by your health care provider. Contact a health care provider if: You have blood in your stool 2 3 days after the procedure. Get help right away if: You have more than a small spotting of blood in your stool. You pass large blood clots in your stool. Your abdomen is swollen. You have nausea or vomiting. You have a fever. You have increasing abdominal pain that is not relieved with medicine. Summary After the procedure, it is common to have a small amount of blood in your stool. You may also have mild abdominal cramping and bloating. For the first 24 hours after the procedure, do not drive or use machinery, sign important documents, or drink alcohol. Contact your health care provider if you have a lot of blood in your stool, nausea or vomiting, a fever, or increased abdominal pain. This information is not intended to replace advice given to you by your health care provider. Make sure you discuss any questions you have with your health care provider. Document Released: 05/12/2005 Document Revised: 07/21/2018 Document Reviewed: 12/09/2016 [employer] Patient Education 2020 [employer] Additional Information VACCINATE! IT SAVES LIVES! Members of the community who have not yet received the COVID-19 vaccine and would like to receive it can visit one of [facility] vaccine clinics. There are many vaccine clinic locations within the [facility]. For locations and available times, please visit https://gettheshot.coronavirus.[place].gov/. It is important to note that some COVID mobile vaccine clinics are held outdoors and may be canceled in rainy or stormy conditions. To learn more about pediatric vaccinations (ages 5-11), we invite you to visit the [facility] webpage. https://www.[facility].org/pages/4145-Hrwxh-Pxqlxahkxvz-Qbzjxwoiwo-Blkov-Jvg stions.htmlTo learn more about the COVID-19 vaccine, we invite you to visit the CDC website for a list of frequently asked questions.https://www.cdc.gov/coronavirus/2019-ncov/vaccines/faq.html [facility] Patient Portal Access Instructions: Stay connected with your healthcare team and access your personal medical information anytime with the [employer] Patient Portal. Please follow the directions below to create your [facility] [employer] account: 1.Access the email account you provided upon registration to the hospital/physician office.2.Look for an invitation email from [facility].3.Open the email and access the invitation link: AcceptInvitation to [facility].4.Fill in the required baeza to create your account. To access your account, visit [email or web address]. Click the blue button labeled Access Patient Portal and then log in with the username and password that you created in the steps above. You will be able to view your test results, lab results, a summary of your visits, upcoming appointments and more. There is also a convenient messaging option where you can send secure messages to your [employer]. In addition, you will have the ability to download any documents or summaries to your computer and/or send the information securely to a physician. Remember that your healthcare information is confidential, so carefully consider who you will allowto register on the [facility] Patient Portal for access to your information. You can also access the [facility] Patient Portal on the [employer] Anywhere varnu. Simply click on Patient Portal and then log into your account. If you would like to receive a full copy of your medical records, please contact the [facility] Medical Records Department by calling [phone], Thursday through Thursday between 8 a.m. and 4:30 p.m. HOW TO SAFELY DISPOSE OF PRESCRIPTION MEDICATIONS Please use one of the following methods to safely dispose of your unused medications. 1.Use a drug disposal kit: the drug disposal pouch allows you to safely discard your old and unuseddrugs. Ask your nurse to give you one when you are discharged.2.Visit a local take-back location: Many local pharmacies and police departments have programs that collect old and unwanted prescriptiondrugs. Call your local pharmacy or go to http://[employer].meet/1M8Ng9m to find one close to you.3.Make use of household items: Use cat litter or old coffee grounds to dispose medications if other options arenot available. Mix your drugs with these household products, seal them in an airtight container andthrow it into the garbage. Call [facility]: [phone] to be sure your drugs can be disposed of in this way. Some medicines may require a different approach.4.Never flush your medications down the toilet. IF YOU HAVE BEEN PRESCRIBED AN OPIOID FOR PAIN If you have been prescribed an opioid (such as hydrocodone, oxycodone or morphine), it is critical to understand the possible side effects and risks of opioid pain medications. Even when taken as directed, opioids can have several side effects including: Tolerance, meaning you might need to take more of a medication for the same pain relief. Nausea, vomiting and/or constipation. Sleepiness, dizziness, dry mouth, confusion, depression or itching. Physical dependence, meaning you have withdrawal symptoms when a medication is stopped, can develop within a few days. KNOW YOUR RESPONSIBILITIES It is important to know exactly how much and how often to take the opioid pain medications you are prescribed. Never take opioids in higher amounts or more often than prescribed. Do not combine opioids with alcohol or other drugs that cause drowsiness, such as benzodiazepines, also known as benzos, including diazepam and alprazolam, muscle relaxants or sleep aids. Never sell or share prescription opioids. This is illegal. Store opioids in a secure place and out of reach of others (including children, family, friends and visitors). The last page of this document has been signed and retained as a CHART COPY. Signatures Patient Education Materials Monitored Anesthesia Care, Care After Colonoscopy, Adult, Care After Medication Leaflets My discharge plan and instructions have been reviewed and explained to me and I,CARMEN GARCIA understand my current condition and have read and understand these discharge instructions. I have received a written copy of the plan/instructions. If I have questions, I am aware that I should contact my doctor. Patient/Office Automation Clerk Signature: Date/Time: Relationship to Patient: Witness Name/Signature: Date/Time: [facility]11-10-2023 Note [facility] ADMISSION HISTORY AND PHYSICIAL CHIEF COMPLAINT: HISTORY OF PRESENT ILLNESS: REVIEW OF SYSTEMS: ACTIVE PROBLEMS: (5) Hypercalcemia (541654983) HYPERTENSION (997.91) Hypothyroidism (16454751) Parkinson disease (18473937) Sleep apnea (585551817) MEDICATIONS: Active Inpt Meds: None Active PRN Meds: None One Time Meds: None Active IV Meds: Lactated Ringers Infusion 1,000 mL (LR 1,000 mL) Start: 08/21/23 7:59:00 EST, Rate: 50 mL/hr, 08/21/23 7:59:00 EST ALLERGIES: (4) Bleach Crestor Lipitor Zetia FAMILY HISTORY: SOCIAL HISTORY: PHYSICAL EXAM: VITALS: WmrbtpQhvaOCXdrqrLITrN6WZH3LldfXv(kg) 08/21 08:2136.4--842471QM42/10 90.9 24 Hr Tmax: 36.4 at 08/21 08:21 36 Hr Tmax: 36.4 at 08/21 08:21 Vital Signs are the last 5 in the past 48 hours. Weights display the last 5 within 7 days. Initial Wt: 08/21 90.9 kg 200 lb Current Wt: 08/21 90.9 kg 200 lb GENERAL: HEENT: CARDIOVASCULAR: RESPIRATORY: ABDOMEN: EXREMETIES: NEUROLOGICAL: PSYCHIATRIC: LABS: No 36hr Lab Data DIAGNOSTICS: IMPRESSION: PLAN: History and Physical Update I have examined the patient; reviewed the H&P and there are no changes to the H&P unless noted below. Digitally Signed by DAMIAN HARTMANN MD on 08/21/2023 09:46 AM [facility]11-10-2023 Note [facility] ADMISSION HISTORY AND PHYSICIAL CHIEF COMPLAINT: HISTORY OF PRESENT ILLNESS: REVIEW OF SYSTEMS: ACTIVE PROBLEMS: (5) Hypercalcemia (814184622) HYPERTENSION (997.91) Hypothyroidism (91387175) Parkinson disease (67921654) Sleep apnea (504780686) MEDICATIONS: Active Inpt Meds: None Active PRN Meds: None One Time Meds: None Active IV Meds: Lactated Ringers Infusion 1,000 mL (LR 1,000 mL) Start: 08/21/23 7:59:00 EST, Rate: 50 mL/hr, 08/21/23 7:59:00 EST ALLERGIES: (4) Bleach Crestor Lipitor Zetia FAMILY HISTORY: SOCIAL HISTORY: PHYSICAL EXAM: VITALS: CoxoriQcjrNTZobnvSIDsU9NGG4GdrsKe(kg) 08/21 08:2136.4--228860DC18/10 90.9 24 Hr Tmax: 36.4 at 08/21 08:21 36 Hr Tmax: 36.4 at 08/21 08:21 Vital Signs are the last 5 in the past 48 hours. Weights display the last 5 within 7 days. Initial Wt: 08/21 90.9 kg 200 lb Current Wt: 08/21 90.9 kg 200 lb GENERAL: HEENT: CARDIOVASCULAR: RESPIRATORY: ABDOMEN: EXREMETIES: NEUROLOGICAL: PSYCHIATRIC: LABS: No 36hr Lab Data DIAGNOSTICS: IMPRESSION: PLAN: History and Physical Update I have examined the patient; reviewed the H&P and there are no changes to the H&P unless noted below. Digitally Signed by DAMIAN HARTMANN MD on 08/21/2023 09:39 AM [facility]11-10-2023 Anesthesiology Consult note Patient: CARMEN GARCIA Age: 73 years Sex: Female : 1950 Associated Diagnoses: None Author: MIL CRESPO APRN-HOSPICE CASE MANAGER Preoperative Information Anesthesia history Patient's history: negative, a fib. Family's history: negative. Health Status Allergies: Allergic Reactions (Selected) Severity Not Documented Bleach- Tightness of throat. Crestor- No reactions were documented. Lipitor- No reactions were documented. Zetia- No reactions were documented., Allergies (4) ActiveReaction Bleachtightness of throat CrestorNone Documented LipitorNone Documented ZetiaNone Documented Current medications: (Selected) Inpatient Medications Ordered LR 1,000 mL: 50 mL/hr, Intravenous Documented Medications Documented Avapro 300 mg oral tablet: 300 mg, 1 tab(s), Oral, Daily, 30 tab(s) Citracal 500 mg oral tablet: 500 mg, Oral, BID, 0 Refill(s) Fish Oil 1200 mg oral capsule: 1,200 mg, 1 cap(s), Oral, Daily Garlic oral capsule: 1 cap(s), Oral, Daily Vitamin D3 1250 mcg (50,000 intl units) oral capsule: 1,250 mcg, 1 cap(s), Oral, qmonth, 12 cap(s),0 Refill(s) aspirin 81 mg oral delayed release tablet: 81 mg, 1 tab(s), Oral, Daily carbidopa-levodopa 25 mg-100 mg oral tablet: 2 tab(s), Oral, TID, 180 tab(s), 0 Refill(s) levothyroxine 125 mcg (0.125 mg) oral tablet: 125 mcg, 1 tab(s), Oral, qDayAC, 0 Refill(s), Medications (1) Active Scheduled: (0) Continuous: (1) Lactated Ringers 1,000 mL 1,000 mL, Intravenous, 50 mL/hr PRN: (0) Problem list: Active Problems (5) Hypercalcemia HYPERTENSION Hypothyroidism Parkinson disease Sleep apnea Histories Past Medical History: No active or resolved past medical history items have been selected or recorded. Family History: No family history items have been selected or recorded. Procedure history: Cholecystectomy (01658849). Cardioversion (020120327). Complete thyroidectomy (18133655). Hysterectomy (916250675). Colonoscopy (528853100). Comments: 08/21/2023 8:37 EST - Harmony Alicea RN 4 Social History Social & Psychosocial Habits Alcohol 08/21/2023 Use: Never Substance Abuse 08/21/2023 Use: Never Tobacco 08/21/2023 Tobacco Use: Never (less than 100 in l Home/Environment 08/21/2023 Domestic Concerns None Living situation: Home/Independent Primary Wood Preparation Supervisor: Self Current Home Treatments CPAP Special Services and Community Resources None Marital Status of Patient if Patient Independent Adult: Unmarried Nutrition/Health 08/21/2023 Type of diet: Regular Appetite Good Eating Difficulties None . Physical Examination Vital Signs 08/21/2023 8:21 EST Temperature Temporal Artery 36.4 DegC Apical Heart Rate 84 bpm Respiratory Rate 22 br/min HI Systolic Blood Pressure Non-Invasive 132 mmHg Diastolic Blood Pressure Non-Invasive 71 mmHg Vital Signs(last 24 hrs) Last Charted Resp Rate H 22br/min (AUG 21 08:) WUT962 mmHg (AUG 21:) DBP71 mmHg (AUG 21:) BMI36.05 (AUG 21) Measurements from flowsheet : Measurements 08/21/2023 8:21 EST Height 158.8 cm Admission Weight 90.9 kg Weight Method Stated [place] Body Weight 51.30 kg BSA Admission 1.92 Body Mass Index 36.05 kg/m2 Pain assessment: Pain Assessment 08/21/2023 8:21 EST Primary Pain Intensity 0 Primary Pain Nonverbal Response Appears restful Pain Scale Type 0-10 Pain scale . General: Alert and oriented. Airway: Normal temporomandibular joint mobility. Mallampati classification: II (soft palate, fauces, uvula visible). Dentition Evaluation: Denies loose/chipped teeth. Respiratory: Lungs are clear to auscultation, Respirations are non-labored. Cardiovascular: Regular rhythm. Neurologic: Alert, Oriented. Review / Management Results review: No qualifying data available , Lab results 08/21/2023 8:40 EST Wrist Right 08/21/2023 22 gauge Peripheral IV Activity: Insert new site Peripheral IV Dressing Condition: Clean, Dry, Intact Peripheral IV Dressing Activity: Applied, Transparent dressing Peripheral IV Line Status/Patency: Continuous infusion, Good blood return Peripheral IV Site Condition: No complications Peripheral IV Equipment: Extension set Peripheral IV Number of Attempts: 1 08/21/2023 8:36 EST Lactated Ringers Injection Begin Bag 1,000 mL mL 08/21/2023 8:26 EST Urinary Elimination Voiding, no difficulties IV Present Present Allergies Yes Anesthesia Extension Set Applied Yes Supervisor Records Change On Yes Colon Prep Results Good Consent Form Signed Yes Patient Dressed In Hospital gown, No undergarments Pre-op Preparation Glasses removed History & Physical Update On Chart No History & Physical On Chart No Bowel Prep Completed Yes Belongings At Bedside Glasses, Pants, Shirt, Shoes, Socks, Undergarments NPO Status Maintained, Less than 8 hours Allergy Band on and Verified Yes Patient ID Band on and Verified Yes Implants Verified Yes Pacemaker/AICD Verified Yes Site Verified by Patient/Family Yes Anesthesia Consent Signed No Blood Consent Signed No Last Fluid Intake 08/21/2023 7:00 Last Food Intake 08/20/2023 7:00 Last Void 08/21/2023 7:45 08/21/2023 8:21 EST Designated Person #1 We May Share [place] [phone] Designated Person #1 Relationship Daughter Privacy Restrictions Requested None Height 158.8 cm Admission Weight 90.9 kg Weight Method Stated [place] Body Weight 51.30 kg BSA Admission 1.92 Body Mass Index 36.05 kg/m2 Temperature Temporal Artery 36.4 DegC Apical Heart Rate 84 bpm Respiratory Rate 22 br/min HI Systolic Blood Pressure Non-Invasive 132 mmHg Diastolic Blood Pressure Non-Invasive 71 mmHg Primary Pain Intensity 0 Primary Pain Nonverbal Response Appears restful Pain Scale Type 0-10 Pain scale Monitor Alarms On and Limits Checked Heart Rhythm Regular Cardiac Rhythm Sinus rhythm Monitoring Lead II Respirations Unlabored Respiratory Pattern Regular Oxygen Therapy Room air Oxygen Saturation 94 % Abdomen Description Soft, Rounded Bowel Sounds All Quadrants Present Status N/A Skin Temperature Warm Skin Description [place], Dry Skin Integrity Intact Skin Moisture General Dry Neurological Symptoms Patient denies Extremity Movement Equal Characteristics of Speech Clear Level of Consciousness Alert Strength All Extremities Moderate Tone All Extremities Normal Sensation All Extremities Intact Affect/Behavior Appropriate, Calm, Cooperative Orientation Oriented x 4, Follows simple commands Sensory Deficits None Infectious Disease Symptoms Patient states no symptoms Infectious Disease Recent Exposure No Alcohol and Drug Use No Employee of Institutional Living No Health Care Employee No History of Exposure to TB No History of Positive Chest X-Ray for TB No History of Positive TB Skin Test No Homeless No Known Immunosuppression No Recent Immigrant No Resident of Institutional Living No Bloody Sputum No Fatigue No Fever No Loss of Appetite No Night Sweats No Persistent Cough > 3 Weeks No Weight Loss No Mode Motor (2) Moves 4 extremities voluntarily or on command Mode Respirations (2) Spontaneous respiration without support, RR > 10 Mode Blood Pressure (2) BP 20% above or below preanesthetic level Mode Pulse (2) Pulse 20% above or below preanesthetic level Mode Oxygen Saturation (2) 94% or more Mode Level of Consciousness (2) Fully awake Mode III Score 12 Barriers to Learning None evident Teaching Method Explanation, Printed materials Preferred Spoken Language Yoruba Preferred Written Language Yoruba Pt./Caregiver Remote Cont.Visual Monitor Demonstrates Information Given by Patient Patient's Current Physicians Patient's Current Physicians Discharge To, Anticipated Home independently Positioning Repositions self Activity Status ADL Awake, Resting Standard Safety ID band on, Allergy Band on, Call device within reach, Bed in low position, Wheels locked, Upper/Half-Length side-rails up, Visitor at bedside Demonstrates Correct Call Light Use Yes Prev Test Positive/Diagnosis w/COVID-19 Yes Previous COVID-19 Positive Date 2021 Current Quarantine/Isolated any Illness No Any Contact with Sick Animals/Birds No Traveled Anywhere in Last 30 Days No N/A Personal Devices, Patient Valuables Glasses Admission Note-Nursing Procedure/Therapy Intake . Assessment and Plan [place] [employer] (ASA) physical status classification: Class III. Anesthetic Preoperative Plan Anesthetic technique: MAC. Postoperative pain management: Per surgeon. Risks discussed: nausea, vomiting, hypotension, allergic reaction, serious complications. Informed consent: signed by patient. Digitally Signed by MIL CRESPO on 08/21/2023 09:35 AM [facility]03-13-2023 Miscellaneous Notes* Telephone Encounter - Viola Moss APRN.CNP - 12/22/2022 10:06 AM EDT I called and spoke with pt; Carotid US stable with 20-39% B ICA. Pt reports that her mom's carotids 'clogged up' when she was about her age, and it did cause her a stroke. Discussed that we do recommend continued surveillance with a repeat US in 1 year. Pt agrees and will follow-up in 1 year @[facility]. She will call with any questions or concerns in the meantime. Viola Moss APRN.CNP * Telephone Encounter - Viola Moss APRN.CNP - 12/22/2022 10:04 AM EDT Danica Mckee Since patient is a cristian patient and there are no more cristian days available at this time the patient was wondering if when the results for her testing come back can she please receive a phone call with the results [facility] Miscellaneous Notes* Telephone Encounter - Danica Mckee - 12/17/2022 12:54 PM EST Images from the original note were not included. Patient stated that she would like to receive a phone call with the results when they are in. MD Danica Murphy; Viola Moss APRN.CNP She doesn't have significant carotid stenosis per [facility] last note. I would either offer her a phone visit with Teresa after her US to go over results, or I am comfortable with her waiting until I am backfrom maternity leave to have an in person visit in [place]. Whichever she prefers. documented [facility] History of Present illness Narrative* Maikel Avila MD - 01/09/2022 11:22 AM EDT Patient seen today in assessment evaluation of her carotid artery disease. The patient is asymptomatic with regard to her carotid artery disease and denies any episodes of unilateral facial arm or leg weakness or numbness. She also denies any episodes of amaurosis fugax. She also denies any episodes of any difficulty with speech. She does state that in the morning when she gets up she feels a little bit dizzy but this is not constant and does not appear to be specifically related to anything vascular. Overall she remains asymptomatic from her mild bilateral carotid disease. I review her carotid duplex findings with her and she has about 30% bilateral stenosis. This is notsevere on either side and does not show any evidence of any significant problems. There is some turbulent flow noted in her subclavian's but she is not complaining of any type of arm symptomatology and I do not feel further work-up is needed for this at this time. The patient has a second issue that she wishes to bring up at the visit and this is some spider varicosities and leg swelling that she is having. She has some spider varicosities around the ankle level on the medial aspect of the malleolus bilaterally. She really does not have any severe spider varicosities and there is no significant varicose veins that I can see in the leg. She does have some mild swelling and has been prescribed compression socks for this. I concur with the use of compression socks for both the spider veins as well as the swelling. She does state that she gets some tenderness over the spider varicosities especially around the medial malleolus but this does seem to be relieved somewhat with the compression stockings. Overall I tell her I would be strongly in favor of conservative management of her venous problem at this time and the compression is the most appropriatetherapy. Patient is to follow-up here after carotid duplex in 1 year for reevaluation of her carotid artery disease. This note was generated with [employer] dictation software. It may contain incorrect words, spelling, and punctuation and that were not noted in review of the chart prior to signing. I spent 20 minutes in the visit, with more than 50% of the total [id number] time of the visit in counseling / coordination of care. [facility]* Diagnosis Carotid stenosis, asymptomatic, bilateral- Primary [facility] Diagnosis Carotid stenosis, asymptomatic, bilateral- Primary [facility]* Diagnosis Bilateral carotid artery stenosis- Primary Occlusion and stenosis of carotid artery without mention of cerebral infarction [facility] N[facility] No data available for this section [facility] Instructions* Name Dates Details Patient Instructions Indication:Nonsmoker Start:30-Oct-2020 Instruction Type:Provider Instructions for Treatment How to Access Health Informa tion Online using Patient Portal and [employer] Apps Indication:Nonsmoker Start:30-Oct-2020 Instruction Type:Patient Education How to access health informa tion online Indication:Nonsmoker Start:14-Sep-2020 Instruction Type:Patient Education How to access health informa tion online - Detail Indication:Nonsmoker Start:14-Sep-2020 Instruction Type:Patient Education Patient Instructions Indication:Nonsmoker Start:14-Sep-2020 Instruction Type:Provider Instructions for Treatment How to access health informa tion online Indication:Nonsmoker Start:25-Apr-2020 Instruction Type:Patient Education How to access health informa tion online - Detail Indication:Nonsmoker Start:25-Apr-2020 Instruction Type:Patient Education Patient Instructions Indication:Nonsmoker Start:25-Apr-2020 Instruction Type:Provider Instructions for Treatment How to access health informa tion online Indication:Nonsmoker Start:16-Jan-2020 Instruction Type:Patient Education How to access health informa tion online - Detail Indication:Nonsmoker Start:16-Jan-2020 Instruction Type:Patient Education Patient Instructions Indication:Nonsmoker Start:16-Jan-2020 Instruction Type:Provider Instructions for Treatment How to access health informa tion online Indication:Nonsmoker Start:14-Oct-2019 Instruction Type:Patient Education How to access health informa tion online - Detail Indication:Nonsmoker Start:14-Oct-2019 Instruction Type:Patient Education Patient Instructions Indication:BMI 36.0-36.9,adult Start:14-Oct-2019 Instruction Type:Provider Instructions for Treatment How to access health informa tion online Indication:Unspecified Diagnosis Start:15-Aug-2019 Instruction Type:Patient Education How to access health informa tion online - Detail Indication:Unspecified Diagnosis Start:15-Aug-2019 Instruction Type:Patient Education Patient Instructions Indication:Unspecified Diagnosis Start:15-Aug-2019 Instruction Type:Provider Instructions for Treatment How to access health informa tion online Indication:Nonsmoker Start:13-Jul-2019 Instruction Type:Patient Education How to access health informa tion online - Detail Indication:Nonsmoker Start:13-Jul-2019 Instruction Type:Patient Education Patient Instructions Indication:Nonsmoker Start:13-Jul-2019 Instruction Type:Provider Instructions for Treatment How to access health informa tion online Indication:BMI 35.0-35.9,adult Start:25-Jan-2019 Instruction Type:Patient Education How to access health informa tion online - Detail Indication:BMI 35.0-35.9,adult Start:25-Jan-2019 Instruction Type:Patient Education Patient Instructions Indication:BMI 35.0-35.9,adult Start:25-Jan-2019 Instruction Type:Provider Instructions for Treatment How to access health informa tion online Indication:Snores Start:21-Aug-2017 Instruction Type:Patient Education How to access health informa tion online - Detail Indication:Snores Start:21-Aug-2017 Instruction Type:Patient Education Patient Instructions Indication:Snores Start:21-Aug-2017 Instruction Type:Provider Instructions for Treatment How to access health informa tion online Indication:Snores Start:27-Jul-2017 Instruction Type:Patient Education How to access health informa tion online - Detail Indication:Snores Start:27-Jul-2017 Instruction Type:Patient Education Patient Instructions Indication:Snores Start:27-Jul-2017 Instruction Type:Provider Instructions for Treatment How to access health informa tion online Indication:BMI 34.0-34.9,adult Start:13-Nov-2016 Instruction Type:Patient Education How to access health informa tion online - Detail Indication:BMI 34.0-34.9,adult Start:13-Nov-2016 Instruction Type:Patient Education Patient Instructions Indication:BMI 34.0-34.9,adult Start:13-Nov-2016 Instruction Type:Provider Instructions for Treatment How to access health informa tion online Indication:Non-smoker Start:20-Oct-2016 Instruction Type:Patient Education How to access health informa tion online - Detail Indication:Non-smoker Start:20-Oct-2016 Instruction Type:Patient Education Patient Instructions Indication:Non-smoker Start:20-Oct-2016 Instruction Type:Provider Instructions for Treatment How to access health informa tion online Indication:Left hip pain Start:07-Aug-2016 Instruction Type:Patient Education How to access health informa tion online - Detail Indication:Left hip pain Start:07-Aug-2016 Instruction Type:Patient Education Patient Instructions Indication:Left hip pain Start:07-Aug-2016 Instruction Type:Provider Instructions for Treatment How to access health informa tion online Indication:Medicare welcome exam Start:13-May-2016 Instruction Type:Patient Education How to access health informa tion online - Detail Indication:Medicare welcome exam Start:13-May-2016 Instruction Type:Patient Education Patient Instructions Indication:Medicare welcome exam Start:13-May-2016 Instruction Type:Provider Instructions for Treatment How to access health informa tion online Indication:Vomiting and diarrhea Start:05-Mar-2016 Instruction Type:Patient Education How to access health informa tion online - Detail Indication:Vomiting and diarrhea Start:05-Mar-2016 Instruction Type:Patient Education Patient Instructions Indication:Vomiting and diarrhea Start:05-Mar-2016 Instruction Type:Provider Instructions for Treatment Patient Instructions Indication:Heart disease, hypertensive, malignant, without heart failure Start:14-May-2015 Instruction Type:Provider Instructions for Treatment How to access health informa tion online Indication:DIARRHEA (Renamed from D (diarrhea)) Start:04-Apr-2015 Instruction Type:Patient Education How to access health informa tion online - Detail Indication:DIARRHEA (Renamed from D (diarrhea)) Start:04-Apr-2015 Instruction Type:Patient Education Patient Instructions Indication:DIARRHEA (Renamed from D (diarrhea)) Start:04-Apr-2015 Instruction Type:Provider Instructions for Treatment Patient Instructions Indication:Blood pressure check Start:25-Apr-2013 Instruction Type:Provider Instructions for Treatment Patient Instructions Indication:Pre-operative examination Start:18-Apr-2013 Instruction Type:Provider Instructions for Treatment Patient Instructions Indication:Hypercalcemia Start:17-Jan-2013 Instruction Type:Provider Instructions for Treatment Patient Instructions Indication:Pre-operative examination Start:24-Dec-2012 Instruction Type:Provider Instructions for Treatment Patient Instructions Indication:Myalgia Start:27-Sep-2012 Instruction Type:Provider Instructions for Treatment Patient Instructions Indication:Acute sinusitis, unspecified Start:08-Sep-2012 Instruction Type:Provider Instructions for Treatment [facility]; [facility] Work Phone: Instructions* Name Dates Details Patient Instructions Indication:BMI 35.0-35.9,adult Start:08-Oct-2021 Instruction Type:Provider Instructions for Treatment How to Access Health Informa tion Online using Patient Portal and [employer] Apps Indication:BMI 35.0-35.9,adult Start:08-Oct-2021 Instruction Type:Patient Education Patient Instructions Indication:Nonsmoker Start:16-Aug-2021 Instruction Type:Provider Instructions for Treatment How to Access Health Informa tion Online using Patient Portal and [employer] Apps Indication:Nonsmoker Start:16-Aug-2021 Instruction Type:Patient Education Patient Instructions Indication:Ankle pain, left Start:13-Aug-2021 Instruction Type:Provider Instructions for Treatment How to Access Health Informa tion Online using Patient Portal and [employer] Apps Indication:Ankle pain, left Start:13-Aug-2021 Instruction Type:Patient Education Patient Instructions Indication:Nonsmoker Start:29-Apr-2021 Instruction Type:Provider Instructions for Treatment How to Access Health Informa tion Online using Patient Portal and [employer] Apps Indication:Nonsmoker Start:29-Apr-2021 Instruction Type:Patient Education Patient Instructions Indication:Nonsmoker Start:30-Oct-2020 Instruction Type:Provider Instructions for Treatment How to Access Health Informa tion Online using Patient Portal and [employer] Apps Indication:Nonsmoker Start:30-Oct-2020 Instruction Type:Patient Education How to access health informa tion online Indication:Nonsmoker Start:14-Sep-2020 Instruction Type:Patient Education How to access health informa tion online - Detail Indication:Nonsmoker Start:14-Sep-2020 Instruction Type:Patient Education Patient Instructions Indication:Nonsmoker Start:14-Sep-2020 Instruction Type:Provider Instructions for Treatment How to access health informa tion online Indication:Nonsmoker Start:25-Apr-2020 Instruction Type:Patient Education How to access health informa tion online - Detail Indication:Nonsmoker Start:25-Apr-2020 Instruction Type:Patient Education Patient Instructions Indication:Nonsmoker Start:25-Apr-2020 Instruction Type:Provider Instructions for Treatment How to access health informa tion online Indication:Nonsmoker Start:16-Jan-2020 Instruction Type:Patient Education How to access health informa tion online - Detail Indication:Nonsmoker Start:16-Jan-2020 Instruction Type:Patient Education Patient Instructions Indication:Nonsmoker Start:16-Jan-2020 Instruction Type:Provider Instructions for Treatment How to access health informa tion online Indication:Nonsmoker Start:14-Oct-2019 Instruction Type:Patient Education How to access health informa tion online - Detail Indication:Nonsmoker Start:14-Oct-2019 Instruction Type:Patient Education Patient Instructions Indication:BMI 36.0-36.9,adult Start:14-Oct-2019 Instruction Type:Provider Instructions for Treatment How to access health informa tion online Indication:Unspecified Diagnosis Start:15-Aug-2019 Instruction Type:Patient Education How to access health informa tion online - Detail Indication:Unspecified Diagnosis Start:15-Aug-2019 Instruction Type:Patient Education Patient Instructions Indication:Unspecified Diagnosis Start:15-Aug-2019 Instruction Type:Provider Instructions for Treatment How to access health informa tion online Indication:Nonsmoker Start:13-Jul-2019 Instruction Type:Patient Education How to access health informa tion online - Detail Indication:Nonsmoker Start:13-Jul-2019 Instruction Type:Patient Education Patient Instructions Indication:Nonsmoker Start:13-Jul-2019 Instruction Type:Provider Instructions for Treatment How to access health informa tion online Indication:BMI 35.0-35.9,adult Start:25-Jan-2019 Instruction Type:Patient Education How to access health informa tion online - Detail Indication:BMI 35.0-35.9,adult Start:25-Jan-2019 Instruction Type:Patient Education Patient Instructions Indication:BMI 35.0-35.9,adult Start:25-Jan-2019 Instruction Type:Provider Instructions for Treatment How to access health informa tion online Indication:Snores Start:21-Aug-2017 Instruction Type:Patient Education How to access health informa tion online - Detail Indication:Snores Start:21-Aug-2017 Instruction Type:Patient Education Patient Instructions Indication:Snores Start:21-Aug-2017 Instruction Type:Provider Instructions for Treatment How to access health informa tion online Indication:Snores Start:27-Jul-2017 Instruction Type:Patient Education How to access health informa tion online - Detail Indication:Snores Start:27-Jul-2017 Instruction Type:Patient Education Patient Instructions Indication:Snores Start:27-Jul-2017 Instruction Type:Provider Instructions for Treatment How to access health informa tion online Indication:BMI 34.0-34.9,adult Start:13-Nov-2016 Instruction Type:Patient Education How to access health informa tion online - Detail Indication:BMI 34.0-34.9,adult Start:13-Nov-2016 Instruction Type:Patient Education Patient Instructions Indication:BMI 34.0-34.9,adult Start:13-Nov-2016 Instruction Type:Provider Instructions for Treatment How to access health informa tion online Indication:Non-smoker Start:20-Oct-2016 Instruction Type:Patient Education How to access health informa tion online - Detail Indication:Non-smoker Start:20-Oct-2016 Instruction Type:Patient Education Patient Instructions Indication:Non-smoker Start:20-Oct-2016 Instruction Type:Provider Instructions for Treatment How to access health informa tion online Indication:Left hip pain Start:07-Aug-2016 Instruction Type:Patient Education How to access health informa tion online - Detail Indication:Left hip pain Start:07-Aug-2016 Instruction Type:Patient Education Patient Instructions Indication:Left hip pain Start:07-Aug-2016 Instruction Type:Provider Instructions for Treatment How to access health informa tion online Indication:Medicare welcome exam Start:13-May-2016 Instruction Type:Patient Education How to access health informa tion online - Detail Indication:Medicare welcome exam Start:13-May-2016 Instruction Type:Patient Education Patient Instructions Indication:Medicare welcome exam Start:13-May-2016 Instruction Type:Provider Instructions for Treatment How to access health informa tion online Indication:Vomiting and diarrhea Start:05-Mar-2016 Instruction Type:Patient Education How to access health informa tion online - Detail Indication:Vomiting and diarrhea Start:05-Mar-2016 Instruction Type:Patient Education Patient Instructions Indication:Vomiting and diarrhea Start:05-Mar-2016 Instruction Type:Provider Instructions for Treatment Patient Instructions Indication:Heart disease, hypertensive, malignant, without heart failure Start:14-May-2015 Instruction Type:Provider Instructions for Treatment How to access health informa tion online Indication:DIARRHEA (Renamed from D (diarrhea)) Start:04-Apr-2015 Instruction Type:Patient Education How to access health informa tion online - Detail Indication:DIARRHEA (Renamed from D (diarrhea)) Start:04-Apr-2015 Instruction Type:Patient Education Patient Instructions Indication:DIARRHEA (Renamed from D (diarrhea)) Start:04-Apr-2015 Instruction Type:Provider Instructions for Treatment Patient Instructions Indication:Blood pressure check Start:25-Apr-2013 Instruction Type:Provider Instructions for Treatment Patient Instructions Indication:Pre-operative examination Start:18-Apr-2013 Instruction Type:Provider Instructions for Treatment Patient Instructions Indication:Hypercalcemia Start:17-Jan-2013 Instruction Type:Provider Instructions for Treatment Patient Instructions Indication:Pre-operative examination Start:24-Dec-2012 Instruction Type:Provider Instructions for Treatment Patient Instructions Indication:Myalgia Start:27-Sep-2012 Instruction Type:Provider Instructions for Treatment Patient Instructions Indication:Acute sinusitis, unspecified Start:08-Sep-2012 Instruction Type:Provider Instructions for Treatment [facility]; [facility] Work Phone: Instructions* Name Dates Details How to access health informa tion online Indication:Nonsmoker Start:25-Apr-2020 Instruction Type:Patient Education How to access health informa tion online - Detail Indication:Nonsmoker Start:25-Apr-2020 Instruction Type:Patient Education Patient Instructions Indication:Nonsmoker Start:25-Apr-2020 Instruction Type:Provider Instructions for Treatment How to access health informa tion online Indication:Nonsmoker Start:16-Jan-2020 Instruction Type:Patient Education How to access health informa tion online - Detail Indication:Nonsmoker Start:16-Jan-2020 Instruction Type:Patient Education Patient Instructions Indication:Nonsmoker Start:16-Jan-2020 Instruction Type:Provider Instructions for Treatment How to access health informa tion online Indication:Nonsmoker Start:14-Oct-2019 Instruction Type:Patient Education How to access health informa tion online - Detail Indication:Nonsmoker Start:14-Oct-2019 Instruction Type:Patient Education Patient Instructions Indication:BMI 36.0-36.9,adult Start:14-Oct-2019 Instruction Type:Provider Instructions for Treatment How to access health informa tion online Indication:Unspecified Diagnosis Start:15-Aug-2019 Instruction Type:Patient Education How to access health informa tion online - Detail Indication:Unspecified Diagnosis Start:15-Aug-2019 Instruction Type:Patient Education Patient Instructions Indication:Unspecified Diagnosis Start:15-Aug-2019 Instruction Type:Provider Instructions for Treatment How to access health informa tion online Indication:Nonsmoker Start:13-Jul-2019 Instruction Type:Patient Education How to access health informa tion online - Detail Indication:Nonsmoker Start:13-Jul-2019 Instruction Type:Patient Education Patient Instructions Indication:Nonsmoker Start:13-Jul-2019 Instruction Type:Provider Instructions for Treatment How to access health informa tion online Indication:BMI 35.0-35.9,adult Start:25-Jan-2019 Instruction Type:Patient Education How to access health informa tion online - Detail Indication:BMI 35.0-35.9,adult Start:25-Jan-2019 Instruction Type:Patient Education Patient Instructions Indication:BMI 35.0-35.9,adult Start:25-Jan-2019 Instruction Type:Provider Instructions for Treatment How to access health informa tion online Indication:Snores Start:21-Aug-2017 Instruction Type:Patient Education How to access health informa tion online - Detail Indication:Snores Start:21-Aug-2017 Instruction Type:Patient Education Patient Instructions Indication:Snores Start:21-Aug-2017 Instruction Type:Provider Instructions for Treatment How to access health informa tion online Indication:Snores Start:27-Jul-2017 Instruction Type:Patient Education How to access health informa tion online - Detail Indication:Snores Start:27-Jul-2017 Instruction Type:Patient Education Patient Instructions Indication:Snores Start:27-Jul-2017 Instruction Type:Provider Instructions for Treatment How to access health informa tion online Indication:BMI 34.0-34.9,adult Start:13-Nov-2016 Instruction Type:Patient Education How to access health informa tion online - Detail Indication:BMI 34.0-34.9,adult Start:13-Nov-2016 Instruction Type:Patient Education Patient Instructions Indication:BMI 34.0-34.9,adult Start:13-Nov-2016 Instruction Type:Provider Instructions for Treatment How to access health informa tion online Indication:Non-smoker Start:20-Oct-2016 Instruction Type:Patient Education How to access health informa tion online - Detail Indication:Non-smoker Start:20-Oct-2016 Instruction Type:Patient Education Patient Instructions Indication:Non-smoker Start:20-Oct-2016 Instruction Type:Provider Instructions for Treatment How to access health informa tion online Indication:Left hip pain Start:07-Aug-2016 Instruction Type:Patient Education How to access health informa tion online - Detail Indication:Left hip pain Start:07-Aug-2016 Instruction Type:Patient Education Patient Instructions Indication:Left hip pain Start:07-Aug-2016 Instruction Type:Provider Instructions for Treatment How to access health informa tion online Indication:Medicare welcome exam Start:13-May-2016 Instruction Type:Patient Education How to access health informa tion online - Detail Indication:Medicare welcome exam Start:13-May-2016 Instruction Type:Patient Education Patient Instructions Indication:Medicare welcome exam Start:13-May-2016 Instruction Type:Provider Instructions for Treatment How to access health informa tion online Indication:Vomiting and diarrhea Start:05-Mar-2016 Instruction Type:Patient Education How to access health informa tion online - Detail Indication:Vomiting and diarrhea Start:05-Mar-2016 Instruction Type:Patient Education Patient Instructions Indication:Vomiting and diarrhea Start:05-Mar-2016 Instruction Type:Provider Instructions for Treatment Patient Instructions Indication:Heart disease, hypertensive, malignant, without heart failure Start:14-May-2015 Instruction Type:Provider Instructions for Treatment How to access health informa tion online Indication:DIARRHEA (Renamed from D (diarrhea)) Start:04-Apr-2015 Instruction Type:Patient Education How to access health informa tion online - Detail Indication:DIARRHEA (Renamed from D (diarrhea)) Start:04-Apr-2015 Instruction Type:Patient Education Patient Instructions Indication:DIARRHEA (Renamed from D (diarrhea)) Start:04-Apr-2015 Instruction Type:Provider Instructions for Treatment Patient Instructions Indication:Blood pressure check Start:25-Apr-2013 Instruction Type:Provider Instructions for Treatment Patient Instructions Indication:Pre-operative examination Start:18-Apr-2013 Instruction Type:Provider Instructions for Treatment Patient Instructions Indication:Hypercalcemia Start:17-Jan-2013 Instruction Type:Provider Instructions for Treatment Patient Instructions Indication:Pre-operative examination Start:24-Dec-2012 Instruction Type:Provider Instructions for Treatment Patient Instructions Indication:Myalgia Start:27-Sep-2012 Instruction Type:Provider Instructions for Treatment Patient Instructions Indication:Acute sinusitis, unspecified Start:08-Sep-2012 Instruction Type:Provider Instructions for Treatment [facility] Work Phone: Instructions* Name Dates Details How to Access Health Informa tion Online using Patient Portal and [employer] Apps Indication:Nonsmoker Start:02-Dec-2021 Instruction Type:Patient Education Patient Instructions Indication:Nonsmoker Start:02-Dec-2021 Instruction Type:Provider Instructions for Treatment Patient Instructions Indication:BMI 35.0-35.9,adult Start:08-Oct-2021 Instruction Type:Provider Instructions for Treatment How to Access Health Informa tion Online using Patient Portal and [employer] Apps Indication:BMI 35.0-35.9,adult Start:08-Oct-2021 Instruction Type:Patient Education Patient Instructions Indication:Nonsmoker Start:16-Aug-2021 Instruction Type:Provider Instructions for Treatment How to Access Health Informa tion Online using Patient Portal and [employer] Apps Indication:Nonsmoker Start:16-Aug-2021 Instruction Type:Patient Education Patient Instructions Indication:Ankle pain, left Start:13-Aug-2021 Instruction Type:Provider Instructions for Treatment How to Access Health Informa tion Online using Patient Portal and [employer] Apps Indication:Ankle pain, left Start:13-Aug-2021 Instruction Type:Patient Education Patient Instructions Indication:Nonsmoker Start:29-Apr-2021 Instruction Type:Provider Instructions for Treatment How to Access Health Informa tion Online using Patient Portal and [employer] Apps Indication:Nonsmoker Start:29-Apr-2021 Instruction Type:Patient Education Patient Instructions Indication:Nonsmoker Start:30-Oct-2020 Instruction Type:Provider Instructions for Treatment How to Access Health Informa tion Online using Patient Portal and [employer] Apps Indication:Nonsmoker Start:30-Oct-2020 Instruction Type:Patient Education How to access health informa tion online Indication:Nonsmoker Start:14-Sep-2020 Instruction Type:Patient Education How to access health informa tion online - Detail Indication:Nonsmoker Start:14-Sep-2020 Instruction Type:Patient Education Patient Instructions Indication:Nonsmoker Start:14-Sep-2020 Instruction Type:Provider Instructions for Treatment How to access health informa tion online Indication:Nonsmoker Start:25-Apr-2020 Instruction Type:Patient Education How to access health informa tion online - Detail Indication:Nonsmoker Start:25-Apr-2020 Instruction Type:Patient Education Patient Instructions Indication:Nonsmoker Start:25-Apr-2020 Instruction Type:Provider Instructions for Treatment How to access health informa tion online Indication:Nonsmoker Start:16-Jan-2020 Instruction Type:Patient Education How to access health informa tion online - Detail Indication:Nonsmoker Start:16-Jan-2020 Instruction Type:Patient Education Patient Instructions Indication:Nonsmoker Start:16-Jan-2020 Instruction Type:Provider Instructions for Treatment How to access health informa tion online Indication:Nonsmoker Start:14-Oct-2019 Instruction Type:Patient Education How to access health informa tion online - Detail Indication:Nonsmoker Start:14-Oct-2019 Instruction Type:Patient Education Patient Instructions Indication:BMI 36.0-36.9,adult Start:14-Oct-2019 Instruction Type:Provider Instructions for Treatment How to access health informa tion online Indication:Unspecified Diagnosis Start:15-Aug-2019 Instruction Type:Patient Education How to access health informa tion online - Detail Indication:Unspecified Diagnosis Start:15-Aug-2019 Instruction Type:Patient Education Patient Instructions Indication:Unspecified Diagnosis Start:15-Aug-2019 Instruction Type:Provider Instructions for Treatment How to access health informa tion online Indication:Nonsmoker Start:13-Jul-2019 Instruction Type:Patient Education How to access health informa tion online - Detail Indication:Nonsmoker Start:13-Jul-2019 Instruction Type:Patient Education Patient Instructions Indication:Nonsmoker Start:13-Jul-2019 Instruction Type:Provider Instructions for Treatment How to access health informa tion online Indication:BMI 35.0-35.9,adult Start:25-Jan-2019 Instruction Type:Patient Education How to access health informa tion online - Detail Indication:BMI 35.0-35.9,adult Start:25-Jan-2019 Instruction Type:Patient Education Patient Instructions Indication:BMI 35.0-35.9,adult Start:25-Jan-2019 Instruction Type:Provider Instructions for Treatment How to access health informa tion online Indication:Snores Start:21-Aug-2017 Instruction Type:Patient Education How to access health informa tion online - Detail Indication:Snores Start:21-Aug-2017 Instruction Type:Patient Education Patient Instructions Indication:Snores Start:21-Aug-2017 Instruction Type:Provider Instructions for Treatment How to access health informa tion online Indication:Snores Start:27-Jul-2017 Instruction Type:Patient Education How to access health informa tion online - Detail Indication:Snores Start:27-Jul-2017 Instruction Type:Patient Education Patient Instructions Indication:Snores Start:27-Jul-2017 Instruction Type:Provider Instructions for Treatment How to access health informa tion online Indication:BMI 34.0-34.9,adult Start:13-Nov-2016 Instruction Type:Patient Education How to access health informa tion online - Detail Indication:BMI 34.0-34.9,adult Start:13-Nov-2016 Instruction Type:Patient Education Patient Instructions Indication:BMI 34.0-34.9,adult Start:13-Nov-2016 Instruction Type:Provider Instructions for Treatment How to access health informa tion online Indication:Non-smoker Start:20-Oct-2016 Instruction Type:Patient Education How to access health informa tion online - Detail Indication:Non-smoker Start:20-Oct-2016 Instruction Type:Patient Education Patient Instructions Indication:Non-smoker Start:20-Oct-2016 Instruction Type:Provider Instructions for Treatment How to access health informa tion online Indication:Left hip pain Start:07-Aug-2016 Instruction Type:Patient Education How to access health informa tion online - Detail Indication:Left hip pain Start:07-Aug-2016 Instruction Type:Patient Education Patient Instructions Indication:Left hip pain Start:07-Aug-2016 Instruction Type:Provider Instructions for Treatment How to access health informa tion online Indication:Medicare welcome exam Start:13-May-2016 Instruction Type:Patient Education How to access health informa tion online - Detail Indication:Medicare welcome exam Start:13-May-2016 Instruction Type:Patient Education Patient Instructions Indication:Medicare welcome exam Start:13-May-2016 Instruction Type:Provider Instructions for Treatment How to access health informa [employer] online Indication:Vomiting and diarrhea Start:05-Mar-2016 Instruction Type:Patient Education How to access health informa tion online - Detail Indication:Vomiting and diarrhea Start:05-Mar-2016 Instruction Type:Patient Education Patient Instructions Indication:Vomiting and diarrhea Start:05-Mar-2016 Instruction Type:Provider Instructions for Treatment Patient Instructions Indication:Heart disease, hypertensive, malignant, without heart failure Start:14-May-2015 Instruction Type:Provider Instructions for Treatment How to access health informa tion online Indication:DIARRHEA (Renamed from D (diarrhea)) Start:04-Apr-2015 Instruction Type:Patient Education How to access health informa tion online - Detail Indication:DIARRHEA (Renamed from D (diarrhea)) Start:04-Apr-2015 Instruction Type:Patient Education Patient Instructions Indication:DIARRHEA (Renamed from D (diarrhea)) Start:04-Apr-2015 Instruction Type:Provider Instructions for Treatment Patient Instructions Indication:Blood pressure check Start:25-Apr-2013 Instruction Type:Provider Instructions for Treatment Patient Instructions Indication:Pre-operative examination Start:18-Apr-2013 Instruction Type:Provider Instructions for Treatment Patient Instructions Indication:Hypercalcemia Start:17-Jan-2013 Instruction Type:Provider Instructions for Treatment Patient Instructions Indication:Pre-operative examination Start:24-Dec-2012 Instruction Type:Provider Instructions for Treatment Patient Instructions Indication:Myalgia Start:27-Sep-2012 Instruction Type:Provider Instructions for Treatment Patient Instructions Indication:Acute sinusitis, unspecified Start:08-Sep-2012 Instruction Type:Provider Instructions for Treatment [facility]; [facility] Work Phone: Instructions* Name Dates Details How to Access Health Informa [employer] using Patient Portal and [employer] Apps Indication:Nonsmoker Start:02-Dec-2021 Instruction Type:Patient Education Patient Instructions Indication:Nonsmoker Start:02-Dec-2021 Instruction Type:Provider Instructions for Treatment Patient Instructions Indication:BMI 35.0-35.9,adult Start:08-Oct-2021 Instruction Type:Provider Instructions for Treatment How to Access Health Informa tion Online using Patient Portal and [employer] Apps Indication:BMI 35.0-35.9,adult Start:08-Oct-2021 Instruction Type:Patient Education Patient Instructions Indication:Nonsmoker Start:16-Aug-2021 Instruction Type:Provider Instructions for Treatment How to Access Health Informa tion Online using Patient Portal and [employer] Apps Indication:Nonsmoker Start:16-Aug-2021 Instruction Type:Patient Education Patient Instructions Indication:Ankle pain, left Start:13-Aug-2021 Instruction Type:Provider Instructions for Treatment How to Access Health Informa tion Online using Patient Portal and [employer] Apps Indication:Ankle pain, left Start:13-Aug-2021 Instruction Type:Patient Education Patient Instructions Indication:Nonsmoker Start:29-Apr-2021 Instruction Type:Provider Instructions for Treatment How to Access Health Informa tion Online using Patient Portal and [employer] Apps Indication:Nonsmoker Start:29-Apr-2021 Instruction Type:Patient Education Patient Instructions Indication:Nonsmoker Start:30-Oct-2020 Instruction Type:Provider Instructions for Treatment How to Access Health Informa tion Online using Patient Portal and [employer] Apps Indication:Nonsmoker Start:30-Oct-2020 Instruction Type:Patient Education How to access health informa tion online Indication:Nonsmoker Start:14-Sep-2020 Instruction Type:Patient Education How to access health informa tion online - Detail Indication:Nonsmoker Start:14-Sep-2020 Instruction Type:Patient Education Patient Instructions Indication:Nonsmoker Start:14-Sep-2020 Instruction Type:Provider Instructions for Treatment How to access health informa tion online Indication:Nonsmoker Start:25-Apr-2020 Instruction Type:Patient Education How to access health informa tion online - Detail Indication:Nonsmoker Start:25-Apr-2020 Instruction Type:Patient Education Patient Instructions Indication:Nonsmoker Start:25-Apr-2020 Instruction Type:Provider Instructions for Treatment How to access health informa tion online Indication:Nonsmoker Start:16-Jan-2020 Instruction Type:Patient Education How to access health informa tion online - Detail Indication:Nonsmoker Start:16-Jan-2020 Instruction Type:Patient Education Patient Instructions Indication:Nonsmoker Start:16-Jan-2020 Instruction Type:Provider Instructions for Treatment How to access health informa tion online Indication:Nonsmoker Start:14-Oct-2019 Instruction Type:Patient Education How to access health informa tion online - Detail Indication:Nonsmoker Start:14-Oct-2019 Instruction Type:Patient Education Patient Instructions Indication:BMI 36.0-36.9,adult Start:14-Oct-2019 Instruction Type:Provider Instructions for Treatment How to access health informa tion online Indication:Unspecified Diagnosis Start:15-Aug-2019 Instruction Type:Patient Education How to access health informa tion online - Detail Indication:Unspecified Diagnosis Start:15-Aug-2019 Instruction Type:Patient Education Patient Instructions Indication:Unspecified Diagnosis Start:15-Aug-2019 Instruction Type:Provider Instructions for Treatment How to access health informa tion online Indication:Nonsmoker Start:13-Jul-2019 Instruction Type:Patient Education How to access health informa tion online - Detail Indication:Nonsmoker Start:13-Jul-2019 Instruction Type:Patient Education Patient Instructions Indication:Nonsmoker Start:13-Jul-2019 Instruction Type:Provider Instructions for Treatment How to access health informa tion online Indication:BMI 35.0-35.9,adult Start:25-Jan-2019 Instruction Type:Patient Education How to access health informa tion online - Detail Indication:BMI 35.0-35.9,adult Start:25-Jan-2019 Instruction Type:Patient Education Patient Instructions Indication:BMI 35.0-35.9,adult Start:25-Jan-2019 Instruction Type:Provider Instructions for Treatment How to access health informa tion online Indication:Snores Start:21-Aug-2017 Instruction Type:Patient Education How to access health informa tion online - Detail Indication:Snores Start:21-Aug-2017 Instruction Type:Patient Education Patient Instructions Indication:Snores Start:21-Aug-2017 Instruction Type:Provider Instructions for Treatment How to access health informa tion online Indication:Snores Start:27-Jul-2017 Instruction Type:Patient Education How to access health informa tion online - Detail Indication:Snores Start:27-Jul-2017 Instruction Type:Patient Education Patient Instructions Indication:Snores Start:27-Jul-2017 Instruction Type:Provider Instructions for Treatment How to access health informa tion online Indication:BMI 34.0-34.9,adult Start:13-Nov-2016 Instruction Type:Patient Education How to access health informa tion online - Detail Indication:BMI 34.0-34.9,adult Start:13-Nov-2016 Instruction Type:Patient Education Patient Instructions Indication:BMI 34.0-34.9,adult Start:13-Nov-2016 Instruction Type:Provider Instructions for Treatment How to access health informa tion online Indication:Non-smoker Start:20-Oct-2016 Instruction Type:Patient Education How to access health informa tion online - Detail Indication:Non-smoker Start:20-Oct-2016 Instruction Type:Patient Education Patient Instructions Indication:Non-smoker Start:20-Oct-2016 Instruction Type:Provider Instructions for Treatment How to access health informa tion online Indication:Left hip pain Start:07-Aug-2016 Instruction Type:Patient Education How to access health informa tion online - Detail Indication:Left hip pain Start:07-Aug-2016 Instruction Type:Patient Education Patient Instructions Indication:Left hip pain Start:07-Aug-2016 Instruction Type:Provider Instructions for Treatment How to access health informa tion online Indication:Medicare welcome exam Start:13-May-2016 Instruction Type:Patient Education How to access health informa tion online - Detail Indication:Medicare welcome exam Start:13-May-2016 Instruction Type:Patient Education Patient Instructions Indication:Medicare welcome exam Start:13-May-2016 Instruction Type:Provider Instructions for Treatment How to access health informa tion online Indication:Vomiting and diarrhea Start:05-Mar-2016 Instruction Type:Patient Education How to access health informa tion online - Detail Indication:Vomiting and diarrhea Start:05-Mar-2016 Instruction Type:Patient Education Patient Instructions Indication:Vomiting and diarrhea Start:05-Mar-2016 Instruction Type:Provider Instructions for Treatment Patient Instructions Indication:Heart disease, hypertensive, malignant, without heart failure Start:14-May-2015 Instruction Type:Provider Instructions for Treatment How to access health informa tion online Indication:DIARRHEA (Renamed from D (diarrhea)) Start:04-Apr-2015 Instruction Type:Patient Education How to access health informa tion online - Detail Indication:DIARRHEA (Renamed from D (diarrhea)) Start:04-Apr-2015 Instruction Type:Patient Education Patient Instructions Indication:DIARRHEA (Renamed from D (diarrhea)) Start:04-Apr-2015 Instruction Type:Provider Instructions for Treatment Patient Instructions Indication:Blood pressure check Start:25-Apr-2013 Instruction Type:Provider Instructions for Treatment Patient Instructions Indication:Pre-operative examination Start:18-Apr-2013 Instruction Type:Provider Instructions for Treatment Patient Instructions Indication:Hypercalcemia Start:17-Jan-2013 Instruction Type:Provider Instructions for Treatment Patient Instructions Indication:Pre-operative examination Start:24-Dec-2012 Instruction Type:Provider Instructions for Treatment Patient Instructions Indication:Myalgia Start:27-Sep-2012 Instruction Type:Provider Instructions for Treatment Patient Instructions Indication:Acute sinusitis, unspecified Start:08-Sep-2012 Instruction Type:Provider Instructions for Treatment [facility]; [facility] Work Phone: Instructions* Name Dates Details Patient Instructions Indication:Fever Start:28-Apr-2022 Instruction Type:Provider Instructions for Treatment How to Access Health Informa tion Online using Patient Portal and [employer] Apps Indication:Fever Start:28-Apr-2022 Instruction Type:Patient Education How to Access Health Informa tion Online using Patient Portal and [employer] Apps Indication:Nonsmoker Start:02-Dec-2021 Instruction Type:Patient Education Patient Instructions Indication:Nonsmoker Start:02-Dec-2021 Instruction Type:Provider Instructions for Treatment Patient Instructions Indication:BMI 35.0-35.9,adult Start:08-Oct-2021 Instruction Type:Provider Instructions for Treatment How to Access Health Informa tion Online using Patient Portal and [employer] Apps Indication:BMI 35.0-35.9,adult Start:08-Oct-2021 Instruction Type:Patient Education Patient Instructions Indication:Nonsmoker Start:16-Aug-2021 Instruction Type:Provider Instructions for Treatment How to Access Health Informa tion Online using Patient Portal and [employer] Apps Indication:Nonsmoker Start:16-Aug-2021 Instruction Type:Patient Education Patient Instructions Indication:Ankle pain, left Start:13-Aug-2021 Instruction Type:Provider Instructions for Treatment How to Access Health Informa tion Online using Patient Portal and [employer] Apps Indication:Ankle pain, left Start:13-Aug-2021 Instruction Type:Patient Education Patient Instructions Indication:Nonsmoker Start:29-Apr-2021 Instruction Type:Provider Instructions for Treatment How to Access Health Informa tion Online using Patient Portal and [employer] Apps Indication:Nonsmoker Start:29-Apr-2021 Instruction Type:Patient Education Patient Instructions Indication:Nonsmoker Start:30-Oct-2020 Instruction Type:Provider Instructions for Treatment How to Access Health Informa tion Online using Patient Portal and [employer] Apps Indication:Nonsmoker Start:30-Oct-2020 Instruction Type:Patient Education How to access health informa tion online Indication:Nonsmoker Start:14-Sep-2020 Instruction Type:Patient Education How to access health informa tion online - Detail Indication:Nonsmoker Start:14-Sep-2020 Instruction Type:Patient Education Patient Instructions Indication:Nonsmoker Start:14-Sep-2020 Instruction Type:Provider Instructions for Treatment How to access health informa tion online Indication:Nonsmoker Start:25-Apr-2020 Instruction Type:Patient Education How to access health informa tion online - Detail Indication:Nonsmoker Start:25-Apr-2020 Instruction Type:Patient Education Patient Instructions Indication:Nonsmoker Start:25-Apr-2020 Instruction Type:Provider Instructions for Treatment How to access health informa tion online Indication:Nonsmoker Start:16-Jan-2020 Instruction Type:Patient Education How to access health informa tion online - Detail Indication:Nonsmoker Start:16-Jan-2020 Instruction Type:Patient Education Patient Instructions Indication:Nonsmoker Start:16-Jan-2020 Instruction Type:Provider Instructions for Treatment How to access health informa tion online Indication:Nonsmoker Start:14-Oct-2019 Instruction Type:Patient Education How to access health informa tion online - Detail Indication:Nonsmoker Start:14-Oct-2019 Instruction Type:Patient Education Patient Instructions Indication:BMI 36.0-36.9,adult Start:14-Oct-2019 Instruction Type:Provider Instructions for Treatment How to access health informa tion online Indication:Unspecified Diagnosis Start:15-Aug-2019 Instruction Type:Patient Education How to access health informa tion online - Detail Indication:Unspecified Diagnosis Start:15-Aug-2019 Instruction Type:Patient Education Patient Instructions Indication:Unspecified Diagnosis Start:15-Aug-2019 Instruction Type:Provider Instructions for Treatment How to access health informa tion online Indication:Nonsmoker Start:13-Jul-2019 Instruction Type:Patient Education How to access health informa tion online - Detail Indication:Nonsmoker Start:13-Jul-2019 Instruction Type:Patient Education Patient Instructions Indication:Nonsmoker Start:13-Jul-2019 Instruction Type:Provider Instructions for Treatment How to access health informa tion online Indication:BMI 35.0-35.9,adult Start:25-Jan-2019 Instruction Type:Patient Education How to access health informa tion online - Detail Indication:BMI 35.0-35.9,adult Start:25-Jan-2019 Instruction Type:Patient Education Patient Instructions Indication:BMI 35.0-35.9,adult Start:25-Jan-2019 Instruction Type:Provider Instructions for Treatment How to access health informa tion online Indication:Snores Start:21-Aug-2017 Instruction Type:Patient Education How to access health informa tion online - Detail Indication:Snores Start:21-Aug-2017 Instruction Type:Patient Education Patient Instructions Indication:Snores Start:21-Aug-2017 Instruction Type:Provider Instructions for Treatment How to access health informa tion online Indication:Snores Start:27-Jul-2017 Instruction Type:Patient Education How to access health informa tion online - Detail Indication:Snores Start:27-Jul-2017 Instruction Type:Patient Education Patient Instructions Indication:Snores Start:27-Jul-2017 Instruction Type:Provider Instructions for Treatment How to access health informa tion online Indication:BMI 34.0-34.9,adult Start:13-Nov-2016 Instruction Type:Patient Education How to access health informa tion online - Detail Indication:BMI 34.0-34.9,adult Start:13-Nov-2016 Instruction Type:Patient Education Patient Instructions Indication:BMI 34.0-34.9,adult Start:13-Nov-2016 Instruction Type:Provider Instructions for Treatment How to access health informa tion online Indication:Non-smoker Start:20-Oct-2016 Instruction Type:Patient Education How to access health informa tion online - Detail Indication:Non-smoker Start:20-Oct-2016 Instruction Type:Patient Education Patient Instructions Indication:Non-smoker Start:20-Oct-2016 Instruction Type:Provider Instructions for Treatment How to access health informa tion online Indication:Left hip pain Start:07-Aug-2016 Instruction Type:Patient Education How to access health informa tion online - Detail Indication:Left hip pain Start:07-Aug-2016 Instruction Type:Patient Education Patient Instructions Indication:Left hip pain Start:07-Aug-2016 Instruction Type:Provider Instructions for Treatment How to access health informa tion online Indication:Medicare welcome exam Start:13-May-2016 Instruction Type:Patient Education How to access health informa tion online - Detail Indication:Medicare welcome exam Start:13-May-2016 Instruction Type:Patient Education Patient Instructions Indication:Medicare welcome exam Start:13-May-2016 Instruction Type:Provider Instructions for Treatment How to access health informa tion online Indication:Vomiting and diarrhea Start:05-Mar-2016 Instruction Type:Patient Education How to access health informa tion online - Detail Indication:Vomiting and diarrhea Start:05-Mar-2016 Instruction Type:Patient Education Patient Instructions Indication:Vomiting and diarrhea Start:05-Mar-2016 Instruction Type:Provider Instructions for Treatment Patient Instructions Indication:Heart disease, hypertensive, malignant, without heart failure Start:14-May-2015 Instruction Type:Provider Instructions for Treatment How to access health informa tion online Indication:DIARRHEA (Renamed from D (diarrhea)) Start:04-Apr-2015 Instruction Type:Patient Education How to access health informa tion online - Detail Indication:DIARRHEA (Renamed from D (diarrhea)) Start:04-Apr-2015 Instruction Type:Patient Education Patient Instructions Indication:DIARRHEA (Renamed from D (diarrhea)) Start:04-Apr-2015 Instruction Type:Provider Instructions for Treatment Patient Instructions Indication:Blood pressure check Start:25-Apr-2013 Instruction Type:Provider Instructions for Treatment Patient Instructions Indication:Pre-operative examination Start:18-Apr-2013 Instruction Type:Provider Instructions for Treatment Patient Instructions Indication:Hypercalcemia Start:17-Jan-2013 Instruction Type:Provider Instructions for Treatment Patient Instructions Indication:Pre-operative examination Start:24-Dec-2012 Instruction Type:Provider Instructions for Treatment Patient Instructions Indication:Myalgia Start:27-Sep-2012 Instruction Type:Provider Instructions for Treatment Patient Instructions Indication:Acute sinusitis, unspecified Start:08-Sep-2012 Instruction Type:Provider Instructions for Treatment [facility]; [facility] Work Phone: Instructions* Name Dates Details Patient Instructions Indication:COVID Start:30-Apr-2022 Instruction Type:Provider Instructions for Treatment Patient Instructions Indication:Fever Start:28-Apr-2022 Instruction Type:Provider Instructions for Treatment How to Access Health Informa tion Online using Patient Portal and [employer] Apps Indication:Fever Start:28-Apr-2022 Instruction Type:Patient Education How to Access Health Informa tion Online using Patient Portal and [employer] Apps Indication:Nonsmoker Start:02-Dec-2021 Instruction Type:Patient Education Patient Instructions Indication:Nonsmoker Start:02-Dec-2021 Instruction Type:Provider Instructions for Treatment Patient Instructions Indication:BMI 35.0-35.9,adult Start:08-Oct-2021 Instruction Type:Provider Instructions for Treatment How to Access Health Informa tion Online using Patient Portal and [employer] Indication:BMI 35.0-35.9,adult Start:08-Oct-2021 Instruction Type:Patient Education Patient Instructions Indication:Nonsmoker Start:16-Aug-2021 Instruction Type:Provider Instructions for Treatment How to Access Health Informa tion Online using Patient Portal and [employer] Indication:Nonsmoker Start:16-Aug-2021 Instruction Type:Patient Education Patient Instructions Indication:Ankle pain, left Start:13-Aug-2021 Instruction Type:Provider Instructions for Treatment How to Access Health Informa tion Online using Patient Portal and [employer] Indication:Ankle pain, left Start:13-Aug-2021 Instruction Type:Patient Education Patient Instructions Indication:Nonsmoker Start:29-Apr-2021 Instruction Type:Provider Instructions for Treatment How to Access Health Informa tion Online using Patient Portal and [employer] Indication:Nonsmoker Start:29-Apr-2021 Instruction Type:Patient Education Patient Instructions Indication:Nonsmoker Start:30-Oct-2020 Instruction Type:Provider Instructions for Treatment How to Access Health Informa tion Online using Patient Portal and [employer] Apps Indication:Nonsmoker Start:30-Oct-2020 Instruction Type:Patient Education How to access health informa tion online Indication:Nonsmoker Start:14-Sep-2020 Instruction Type:Patient Education How to access health informa tion online - Detail Indication:Nonsmoker Start:14-Sep-2020 Instruction Type:Patient Education Patient Instructions Indication:Nonsmoker Start:14-Sep-2020 Instruction Type:Provider Instructions for Treatment How to access health informa tion online Indication:Nonsmoker Start:25-Apr-2020 Instruction Type:Patient Education How to access health informa tion online - Detail Indication:Nonsmoker Start:25-Apr-2020 Instruction Type:Patient Education Patient Instructions Indication:Nonsmoker Start:25-Apr-2020 Instruction Type:Provider Instructions for Treatment How to access health informa tion online Indication:Nonsmoker Start:16-Jan-2020 Instruction Type:Patient Education How to access health informa tion online - Detail Indication:Nonsmoker Start:16-Jan-2020 Instruction Type:Patient Education Patient Instructions Indication:Nonsmoker Start:16-Jan-2020 Instruction Type:Provider Instructions for Treatment How to access health informa tion online Indication:Nonsmoker Start:14-Oct-2019 Instruction Type:Patient Education How to access health informa tion online - Detail Indication:Nonsmoker Start:14-Oct-2019 Instruction Type:Patient Education Patient Instructions Indication:BMI 36.0-36.9,adult Start:14-Oct-2019 Instruction Type:Provider Instructions for Treatment How to access health informa tion online Indication:Unspecified Diagnosis Start:15-Aug-2019 Instruction Type:Patient Education How to access health informa tion online - Detail Indication:Unspecified Diagnosis Start:15-Aug-2019 Instruction Type:Patient Education Patient Instructions Indication:Unspecified Diagnosis Start:15-Aug-2019 Instruction Type:Provider Instructions for Treatment How to access health informa tion online Indication:Nonsmoker Start:13-Jul-2019 Instruction Type:Patient Education How to access health informa tion online - Detail Indication:Nonsmoker Start:13-Jul-2019 Instruction Type:Patient Education Patient Instructions Indication:Nonsmoker Start:13-Jul-2019 Instruction Type:Provider Instructions for Treatment How to access health informa tion online Indication:BMI 35.0-35.9,adult Start:25-Jan-2019 Instruction Type:Patient Education How to access health informa tion online - Detail Indication:BMI 35.0-35.9,adult Start:25-Jan-2019 Instruction Type:Patient Education Patient Instructions Indication:BMI 35.0-35.9,adult Start:25-Jan-2019 Instruction Type:Provider Instructions for Treatment How to access health informa tion online Indication:Snores Start:21-Aug-2017 Instruction Type:Patient Education How to access health informa tion online - Detail Indication:Snores Start:21-Aug-2017 Instruction Type:Patient Education Patient Instructions Indication:Snores Start:21-Aug-2017 Instruction Type:Provider Instructions for Treatment How to access health informa tion online Indication:Snores Start:27-Jul-2017 Instruction Type:Patient Education How to access health informa tion online - Detail Indication:Snores Start:27-Jul-2017 Instruction Type:Patient Education Patient Instructions Indication:Snores Start:27-Jul-2017 Instruction Type:Provider Instructions for Treatment How to access health informa tion online Indication:BMI 34.0-34.9,adult Start:13-Nov-2016 Instruction Type:Patient Education How to access health informa tion online - Detail Indication:BMI 34.0-34.9,adult Start:13-Nov-2016 Instruction Type:Patient Education Patient Instructions Indication:BMI 34.0-34.9,adult Start:13-Nov-2016 Instruction Type:Provider Instructions for Treatment How to access health informa tion online Indication:Non-smoker Start:20-Oct-2016 Instruction Type:Patient Education How to access health informa tion online - Detail Indication:Non-smoker Start:20-Oct-2016 Instruction Type:Patient Education Patient Instructions Indication:Non-smoker Start:20-Oct-2016 Instruction Type:Provider Instructions for Treatment How to access health informa tion online Indication:Left hip pain Start:07-Aug-2016 Instruction Type:Patient Education How to access health informa tion online - Detail Indication:Left hip pain Start:07-Aug-2016 Instruction Type:Patient Education Patient Instructions Indication:Left hip pain Start:07-Aug-2016 Instruction Type:Provider Instructions for Treatment How to access health informa tion online Indication:Medicare welcome exam Start:13-May-2016 Instruction Type:Patient Education How to access health informa tion online - Detail Indication:Medicare welcome exam Start:13-May-2016 Instruction Type:Patient Education Patient Instructions Indication:Medicare welcome exam Start:13-May-2016 Instruction Type:Provider Instructions for Treatment How to access health informa tion online Indication:Vomiting and diarrhea Start:05-Mar-2016 Instruction Type:Patient Education How to access health informa tion online - Detail Indication:Vomiting and diarrhea Start:05-Mar-2016 Instruction Type:Patient Education Patient Instructions Indication:Vomiting and diarrhea Start:05-Mar-2016 Instruction Type:Provider Instructions for Treatment Patient Instructions Indication:Heart disease, hypertensive, malignant, without heart failure Start:14-May-2015 Instruction Type:Provider Instructions for Treatment How to access health informa tion online Indication:DIARRHEA (Renamed from D (diarrhea)) Start:04-Apr-2015 Instruction Type:Patient Education How to access health informa tion online - Detail Indication:DIARRHEA (Renamed from D (diarrhea)) Start:04-Apr-2015 Instruction Type:Patient Education Patient Instructions Indication:DIARRHEA (Renamed from D (diarrhea)) Start:04-Apr-2015 Instruction Type:Provider Instructions for Treatment Patient Instructions Indication:Blood pressure check Start:25-Apr-2013 Instruction Type:Provider Instructions for Treatment Patient Instructions Indication:Pre-operative examination Start:18-Apr-2013 Instruction Type:Provider Instructions for Treatment Patient Instructions Indication:Hypercalcemia Start:17-Jan-2013 Instruction Type:Provider Instructions for Treatment Patient Instructions Indication:Pre-operative examination Start:24-Dec-2012 Instruction Type:Provider Instructions for Treatment Patient Instructions Indication:Myalgia Start:27-Sep-2012 Instruction Type:Provider Instructions for Treatment Patient Instructions Indication:Acute sinusitis, unspecified Start:08-Sep-2012 Instruction Type:Provider Instructions for Treatment [facility]; [facility] Work Phone: Instructions* Name Dates Details Patient Instructions Indication:COVID Start:30-Apr-2022 Instruction Type:Provider Instructions for Treatment Patient Instructions Indication:Fever Start:28-Apr-2022 Instruction Type:Provider Instructions for Treatment How to Access Health Informa tion Online using Patient Portal and [employer] Indication:Fever Start:28-Apr-2022 Instruction Type:Patient Education How to Access Health Informa tion Online using Patient Portal and [employer] Apps Indication:Nonsmoker Start:02-Dec-2021 Instruction Type:Patient Education Patient Instructions Indication:Nonsmoker Start:02-Dec-2021 Instruction Type:Provider Instructions for Treatment Patient Instructions Indication:BMI 35.0-35.9,adult Start:08-Oct-2021 Instruction Type:Provider Instructions for Treatment How to Access Health Informa tion Online using Patient Portal and [employer] Indication:BMI 35.0-35.9,adult Start:08-Oct-2021 Instruction Type:Patient Education Patient Instructions Indication:Nonsmoker Start:16-Aug-2021 Instruction Type:Provider Instructions for Treatment How to Access Health Informa tion Online using Patient Portal and [employer] Indication:Nonsmoker Start:16-Aug-2021 Instruction Type:Patient Education Patient Instructions Indication:Ankle pain, left Start:13-Aug-2021 Instruction Type:Provider Instructions for Treatment How to Access Health Informa tion Online using Patient Portal and [employer] Indication:Ankle pain, left Start:13-Aug-2021 Instruction Type:Patient Education Patient Instructions Indication:Nonsmoker Start:29-Apr-2021 Instruction Type:Provider Instructions for Treatment How to Access Health Informa tion Online using Patient Portal and [employer] Indication:Nonsmoker Start:29-Apr-2021 Instruction Type:Patient Education Patient Instructions Indication:Nonsmoker Start:30-Oct-2020 Instruction Type:Provider Instructions for Treatment How to Access Health Informa tion Online using Patient Portal and [employer] Indication:Nonsmoker Start:30-Oct-2020 Instruction Type:Patient Education How to access health informa tion online Indication:Nonsmoker Start:14-Sep-2020 Instruction Type:Patient Education How to access health informa tion online - Detail Indication:Nonsmoker Start:14-Sep-2020 Instruction Type:Patient Education Patient Instructions Indication:Nonsmoker Start:14-Sep-2020 Instruction Type:Provider Instructions for Treatment How to access health informa tion online Indication:Nonsmoker Start:25-Apr-2020 Instruction Type:Patient Education How to access health informa tion online - Detail Indication:Nonsmoker Start:25-Apr-2020 Instruction Type:Patient Education Patient Instructions Indication:Nonsmoker Start:25-Apr-2020 Instruction Type:Provider Instructions for Treatment How to access health informa tion online Indication:Nonsmoker Start:16-Jan-2020 Instruction Type:Patient Education How to access health informa tion online - Detail Indication:Nonsmoker Start:16-Jan-2020 Instruction Type:Patient Education Patient Instructions Indication:Nonsmoker Start:16-Jan-2020 Instruction Type:Provider Instructions for Treatment How to access health informa tion online Indication:Nonsmoker Start:14-Oct-2019 Instruction Type:Patient Education How to access health informa tion online - Detail Indication:Nonsmoker Start:14-Oct-2019 Instruction Type:Patient Education Patient Instructions Indication:BMI 36.0-36.9,adult Start:14-Oct-2019 Instruction Type:Provider Instructions for Treatment How to access health informa tion online Indication:Unspecified Diagnosis Start:15-Aug-2019 Instruction Type:Patient Education How to access health informa tion online - Detail Indication:Unspecified Diagnosis Start:15-Aug-2019 Instruction Type:Patient Education Patient Instructions Indication:Unspecified Diagnosis Start:15-Aug-2019 Instruction Type:Provider Instructions for Treatment How to access health informa tion online Indication:Nonsmoker Start:13-Jul-2019 Instruction Type:Patient Education How to access health informa tion online - Detail Indication:Nonsmoker Start:13-Jul-2019 Instruction Type:Patient Education Patient Instructions Indication:Nonsmoker Start:13-Jul-2019 Instruction Type:Provider Instructions for Treatment How to access health informa tion online Indication:BMI 35.0-35.9,adult Start:25-Jan-2019 Instruction Type:Patient Education How to access health informa tion online - Detail Indication:BMI 35.0-35.9,adult Start:25-Jan-2019 Instruction Type:Patient Education Patient Instructions Indication:BMI 35.0-35.9,adult Start:25-Jan-2019 Instruction Type:Provider Instructions for Treatment How to access health informa tion online Indication:Snores Start:21-Aug-2017 Instruction Type:Patient Education How to access health informa tion online - Detail Indication:Snores Start:21-Aug-2017 Instruction Type:Patient Education Patient Instructions Indication:Snores Start:21-Aug-2017 Instruction Type:Provider Instructions for Treatment How to access health informa tion online Indication:Snores Start:27-Jul-2017 Instruction Type:Patient Education How to access health informa tion online - Detail Indication:Snores Start:27-Jul-2017 Instruction Type:Patient Education Patient Instructions Indication:Snores Start:27-Jul-2017 Instruction Type:Provider Instructions for Treatment How to access health informa tion online Indication:BMI 34.0-34.9,adult Start:13-Nov-2016 Instruction Type:Patient Education How to access health informa tion online - Detail Indication:BMI 34.0-34.9,adult Start:13-Nov-2016 Instruction Type:Patient Education Patient Instructions Indication:BMI 34.0-34.9,adult Start:13-Nov-2016 Instruction Type:Provider Instructions for Treatment How to access health informa tion online Indication:Non-smoker Start:20-Oct-2016 Instruction Type:Patient Education How to access health informa tion online - Detail Indication:Non-smoker Start:20-Oct-2016 Instruction Type:Patient Education Patient Instructions Indication:Non-smoker Start:20-Oct-2016 Instruction Type:Provider Instructions for Treatment How to access health informa tion online Indication:Left hip pain Start:07-Aug-2016 Instruction Type:Patient Education How to access health informa tion online - Detail Indication:Left hip pain Start:07-Aug-2016 Instruction Type:Patient Education Patient Instructions Indication:Left hip pain Start:07-Aug-2016 Instruction Type:Provider Instructions for Treatment How to access health informa tion online Indication:Medicare welcome exam Start:13-May-2016 Instruction Type:Patient Education How to access health informa tion online - Detail Indication:Medicare welcome exam Start:13-May-2016 Instruction Type:Patient Education Patient Instructions Indication:Medicare welcome exam Start:13-May-2016 Instruction Type:Provider Instructions for Treatment How to access health informa tion online Indication:Vomiting and diarrhea Start:05-Mar-2016 Instruction Type:Patient Education How to access health informa tion online - Detail Indication:Vomiting and diarrhea Start:05-Mar-2016 Instruction Type:Patient Education Patient Instructions Indication:Vomiting and diarrhea Start:05-Mar-2016 Instruction Type:Provider Instructions for Treatment Patient Instructions Indication:Heart disease, hypertensive, malignant, without heart failure Start:14-May-2015 Instruction Type:Provider Instructions for Treatment How to access health informa tion online Indication:DIARRHEA (Renamed from D (diarrhea)) Start:04-Apr-2015 Instruction Type:Patient Education How to access health informa tion online - Detail Indication:DIARRHEA (Renamed from D (diarrhea)) Start:04-Apr-2015 Instruction Type:Patient Education Patient Instructions Indication:DIARRHEA (Renamed from D (diarrhea)) Start:04-Apr-2015 Instruction Type:Provider Instructions for Treatment Patient Instructions Indication:Blood pressure check Start:25-Apr-2013 Instruction Type:Provider Instructions for Treatment Patient Instructions Indication:Pre-operative examination Start:18-Apr-2013 Instruction Type:Provider Instructions for Treatment Patient Instructions Indication:Hypercalcemia Start:17-Jan-2013 Instruction Type:Provider Instructions for Treatment Patient Instructions Indication:Pre-operative examination Start:24-Dec-2012 Instruction Type:Provider Instructions for Treatment Patient Instructions Indication:Myalgia Start:27-Sep-2012 Instruction Type:Provider Instructions for Treatment Patient Instructions Indication:Acute sinusitis, unspecified Start:08-Sep-2012 Instruction Type:Provider Instructions for Treatment [facility] Work Phone: Instructions* Name Dates Details Patient Instructions Indication:BMI 36.0-36.9,adult Start:29-Aug-2022 Instruction Type:Provider Instructions for Treatment How to Access Health Informa tion Online using Patient Portal and [employer] Apps Indication:BMI 36.0-36.9,adult Start:29-Aug-2022 Instruction Type:Patient Education Patient Instructions Indication:COVID Start:30-Apr-2022 Instruction Type:Provider Instructions for Treatment Patient Instructions Indication:Fever Start:28-Apr-2022 Instruction Type:Provider Instructions for Treatment How to Access Health Informa tion Online using Patient Portal and [employer] Apps Indication:Fever Start:28-Apr-2022 Instruction Type:Patient Education How to Access Health Informa tion Online using Patient Portal and [employer] Apps Indication:Nonsmoker Start:02-Dec-2021 Instruction Type:Patient Education Patient Instructions Indication:Nonsmoker Start:02-Dec-2021 Instruction Type:Provider Instructions for Treatment Patient Instructions Indication:BMI 35.0-35.9,adult Start:08-Oct-2021 Instruction Type:Provider Instructions for Treatment How to Access Health Informa tion Online using Patient Portal and [employer] Apps Indication:BMI 35.0-35.9,adult Start:08-Oct-2021 Instruction Type:Patient Education Patient Instructions Indication:Nonsmoker Start:16-Aug-2021 Instruction Type:Provider Instructions for Treatment How to Access Health Informa tion Online using Patient Portal and [employer] Apps Indication:Nonsmoker Start:16-Aug-2021 Instruction Type:Patient Education Patient Instructions Indication:Ankle pain, left Start:13-Aug-2021 Instruction Type:Provider Instructions for Treatment How to Access Health Informa tion Online using Patient Portal and [employer] Apps Indication:Ankle pain, left Start:13-Aug-2021 Instruction Type:Patient Education Patient Instructions Indication:Nonsmoker Start:29-Apr-2021 Instruction Type:Provider Instructions for Treatment How to Access Health Informa tion Online using Patient Portal and [employer] Apps Indication:Nonsmoker Start:29-Apr-2021 Instruction Type:Patient Education Patient Instructions Indication:Nonsmoker Start:30-Oct-2020 Instruction Type:Provider Instructions for Treatment How to Access Health Informa tion Online using Patient Portal and [employer] Apps Indication:Nonsmoker Start:30-Oct-2020 Instruction Type:Patient Education How to access health informa tion online Indication:Nonsmoker Start:14-Sep-2020 Instruction Type:Patient Education How to access health informa tion online - Detail Indication:Nonsmoker Start:14-Sep-2020 Instruction Type:Patient Education Patient Instructions Indication:Nonsmoker Start:14-Sep-2020 Instruction Type:Provider Instructions for Treatment How to access health informa tion online Indication:Nonsmoker Start:25-Apr-2020 Instruction Type:Patient Education How to access health informa tion online - Detail Indication:Nonsmoker Start:25-Apr-2020 Instruction Type:Patient Education Patient Instructions Indication:Nonsmoker Start:25-Apr-2020 Instruction Type:Provider Instructions for Treatment How to access health informa tion online Indication:Nonsmoker Start:16-Jan-2020 Instruction Type:Patient Education How to access health informa tion online - Detail Indication:Nonsmoker Start:16-Jan-2020 Instruction Type:Patient Education Patient Instructions Indication:Nonsmoker Start:16-Jan-2020 Instruction Type:Provider Instructions for Treatment How to access health informa tion online Indication:Nonsmoker Start:14-Oct-2019 Instruction Type:Patient Education How to access health informa tion online - Detail Indication:Nonsmoker Start:14-Oct-2019 Instruction Type:Patient Education Patient Instructions Indication:BMI 36.0-36.9,adult Start:14-Oct-2019 Instruction Type:Provider Instructions for Treatment How to access health informa tion online Indication:Unspecified Diagnosis Start:15-Aug-2019 Instruction Type:Patient Education How to access health informa tion online - Detail Indication:Unspecified Diagnosis Start:15-Aug-2019 Instruction Type:Patient Education Patient Instructions Indication:Unspecified Diagnosis Start:15-Aug-2019 Instruction Type:Provider Instructions for Treatment How to access health informa tion online Indication:Nonsmoker Start:13-Jul-2019 Instruction Type:Patient Education How to access health informa tion online - Detail Indication:Nonsmoker Start:13-Jul-2019 Instruction Type:Patient Education Patient Instructions Indication:Nonsmoker Start:13-Jul-2019 Instruction Type:Provider Instructions for Treatment How to access health informa tion online Indication:BMI 35.0-35.9,adult Start:25-Jan-2019 Instruction Type:Patient Education How to access health informa tion online - Detail Indication:BMI 35.0-35.9,adult Start:25-Jan-2019 Instruction Type:Patient Education Patient Instructions Indication:BMI 35.0-35.9,adult Start:25-Jan-2019 Instruction Type:Provider Instructions for Treatment How to access health informa tion online Indication:Snores Start:21-Aug-2017 Instruction Type:Patient Education How to access health informa tion online - Detail Indication:Snores Start:21-Aug-2017 Instruction Type:Patient Education Patient Instructions Indication:Snores Start:21-Aug-2017 Instruction Type:Provider Instructions for Treatment How to access health informa tion online Indication:Snores Start:27-Jul-2017 Instruction Type:Patient Education How to access health informa tion online - Detail Indication:Snores Start:27-Jul-2017 Instruction Type:Patient Education Patient Instructions Indication:Snores Start:27-Jul-2017 Instruction Type:Provider Instructions for Treatment How to access health informa tion online Indication:BMI 34.0-34.9,adult Start:13-Nov-2016 Instruction Type:Patient Education How to access health informa tion online - Detail Indication:BMI 34.0-34.9,adult Start:13-Nov-2016 Instruction Type:Patient Education Patient Instructions Indication:BMI 34.0-34.9,adult Start:13-Nov-2016 Instruction Type:Provider Instructions for Treatment How to access health informa tion online Indication:Non-smoker Start:20-Oct-2016 Instruction Type:Patient Education How to access health informa tion online - Detail Indication:Non-smoker Start:20-Oct-2016 Instruction Type:Patient Education Patient Instructions Indication:Non-smoker Start:20-Oct-2016 Instruction Type:Provider Instructions for Treatment How to access health informa tion online Indication:Left hip pain Start:07-Aug-2016 Instruction Type:Patient Education How to access health informa tion online - Detail Indication:Left hip pain Start:07-Aug-2016 Instruction Type:Patient Education Patient Instructions Indication:Left hip pain Start:07-Aug-2016 Instruction Type:Provider Instructions for Treatment How to access health informa tion online Indication:Medicare welcome exam Start:13-May-2016 Instruction Type:Patient Education How to access health informa tion online - Detail Indication:Medicare welcome exam Start:13-May-2016 Instruction Type:Patient Education Patient Instructions Indication:Medicare welcome exam Start:13-May-2016 Instruction Type:Provider Instructions for Treatment How to access health informa tion online Indication:Vomiting and diarrhea Start:05-Mar-2016 Instruction Type:Patient Education How to access health informa tion online - Detail Indication:Vomiting and diarrhea Start:05-Mar-2016 Instruction Type:Patient Education Patient Instructions Indication:Vomiting and diarrhea Start:05-Mar-2016 Instruction Type:Provider Instructions for Treatment Patient Instructions Indication:Heart disease, hypertensive, malignant, without heart failure Start:14-May-2015 Instruction Type:Provider Instructions for Treatment How to access health informa tion online Indication:DIARRHEA (Renamed from D (diarrhea)) Start:04-Apr-2015 Instruction Type:Patient Education How to access health informa tion online - Detail Indication:DIARRHEA (Renamed from D (diarrhea)) Start:04-Apr-2015 Instruction Type:Patient Education Patient Instructions Indication:DIARRHEA (Renamed from D (diarrhea)) Start:04-Apr-2015 Instruction Type:Provider Instructions for Treatment Patient Instructions Indication:Blood pressure check Start:25-Apr-2013 Instruction Type:Provider Instructions for Treatment Patient Instructions Indication:Pre-operative examination Start:18-Apr-2013 Instruction Type:Provider Instructions for Treatment Patient Instructions Indication:Hypercalcemia Start:17-Jan-2013 Instruction Type:Provider Instructions for Treatment Patient Instructions Indication:Pre-operative examination Start:24-Dec-2012 Instruction Type:Provider Instructions for Treatment Patient Instructions Indication:Myalgia Start:27-Sep-2012 Instruction Type:Provider Instructions for Treatment Patient Instructions Indication:Acute sinusitis, unspecified Start:08-Sep-2012 Instruction Type:Provider Instructions for Treatment [facility] Work Phone: Instructions* Name Dates Details Patient Instructions Indication:BMI 36.0-36.9,adult Start:29-Aug-2022 Instruction Type:Provider Instructions for Treatment How to Access Health Informa tion Online using Patient Portal and [employer] Apps Indication:BMI 36.0-36.9,adult Start:29-Aug-2022 Instruction Type:Patient Education Patient Instructions Indication:COVID Start:30-Apr-2022 Instruction Type:Provider Instructions for Treatment Patient Instructions Indication:Fever Start:28-Apr-2022 Instruction Type:Provider Instructions for Treatment How to Access Health Informa tion Online using Patient Portal and [employer] Apps Indication:Fever Start:28-Apr-2022 Instruction Type:Patient Education How to Access Health Informa tion Online using Patient Portal and [employer] Apps Indication:Nonsmoker Start:02-Dec-2021 Instruction Type:Patient Education Patient Instructions Indication:Nonsmoker Start:02-Dec-2021 Instruction Type:Provider Instructions for Treatment Patient Instructions Indication:BMI 35.0-35.9,adult Start:08-Oct-2021 Instruction Type:Provider Instructions for Treatment How to Access Health Informa tion Online using Patient Portal and [employer] Apps Indication:BMI 35.0-35.9,adult Start:08-Oct-2021 Instruction Type:Patient Education Patient Instructions Indication:Nonsmoker Start:16-Aug-2021 Instruction Type:Provider Instructions for Treatment How to Access Health Informa tion Online using Patient Portal and [employer] Apps Indication:Nonsmoker Start:16-Aug-2021 Instruction Type:Patient Education Patient Instructions Indication:Ankle pain, left Start:13-Aug-2021 Instruction Type:Provider Instructions for Treatment How to Access Health Informa tion Online using Patient Portal and [employer] Apps Indication:Ankle pain, left Start:13-Aug-2021 Instruction Type:Patient Education Patient Instructions Indication:Nonsmoker Start:29-Apr-2021 Instruction Type:Provider Instructions for Treatment How to Access Health Informa tion Online using Patient Portal and [employer] Apps Indication:Nonsmoker Start:29-Apr-2021 Instruction Type:Patient Education Patient Instructions Indication:Nonsmoker Start:30-Oct-2020 Instruction Type:Provider Instructions for Treatment How to Access Health Informa tion Online using Patient Portal and [employer] Apps Indication:Nonsmoker Start:30-Oct-2020 Instruction Type:Patient Education How to access health informa tion online Indication:Nonsmoker Start:14-Sep-2020 Instruction Type:Patient Education How to access health informa tion online - Detail Indication:Nonsmoker Start:14-Sep-2020 Instruction Type:Patient Education Patient Instructions Indication:Nonsmoker Start:14-Sep-2020 Instruction Type:Provider Instructions for Treatment How to access health informa tion online Indication:Nonsmoker Start:25-Apr-2020 Instruction Type:Patient Education How to access health informa tion online - Detail Indication:Nonsmoker Start:25-Apr-2020 Instruction Type:Patient Education Patient Instructions Indication:Nonsmoker Start:25-Apr-2020 Instruction Type:Provider Instructions for Treatment How to access health informa tion online Indication:Nonsmoker Start:16-Jan-2020 Instruction Type:Patient Education How to access health informa tion online - Detail Indication:Nonsmoker Start:16-Jan-2020 Instruction Type:Patient Education Patient Instructions Indication:Nonsmoker Start:16-Jan-2020 Instruction Type:Provider Instructions for Treatment How to access health informa tion online Indication:Nonsmoker Start:14-Oct-2019 Instruction Type:Patient Education How to access health informa tion online - Detail Indication:Nonsmoker Start:14-Oct-2019 Instruction Type:Patient Education Patient Instructions Indication:BMI 36.0-36.9,adult Start:14-Oct-2019 Instruction Type:Provider Instructions for Treatment How to access health informa tion online Indication:Unspecified Diagnosis Start:15-Aug-2019 Instruction Type:Patient Education How to access health informa tion online - Detail Indication:Unspecified Diagnosis Start:15-Aug-2019 Instruction Type:Patient Education Patient Instructions Indication:Unspecified Diagnosis Start:15-Aug-2019 Instruction Type:Provider Instructions for Treatment How to access health informa tion online Indication:Nonsmoker Start:13-Jul-2019 Instruction Type:Patient Education How to access health informa tion online - Detail Indication:Nonsmoker Start:13-Jul-2019 Instruction Type:Patient Education Patient Instructions Indication:Nonsmoker Start:13-Jul-2019 Instruction Type:Provider Instructions for Treatment How to access health informa tion online Indication:BMI 35.0-35.9,adult Start:25-Jan-2019 Instruction Type:Patient Education How to access health informa tion online - Detail Indication:BMI 35.0-35.9,adult Start:25-Jan-2019 Instruction Type:Patient Education Patient Instructions Indication:BMI 35.0-35.9,adult Start:25-Jan-2019 Instruction Type:Provider Instructions for Treatment How to access health informa tion online Indication:Snores Start:21-Aug-2017 Instruction Type:Patient Education How to access health informa tion online - Detail Indication:Snores Start:21-Aug-2017 Instruction Type:Patient Education Patient Instructions Indication:Snores Start:21-Aug-2017 Instruction Type:Provider Instructions for Treatment How to access health informa tion online Indication:Snores Start:27-Jul-2017 Instruction Type:Patient Education How to access health informa tion online - Detail Indication:Snores Start:27-Jul-2017 Instruction Type:Patient Education Patient Instructions Indication:Snores Start:27-Jul-2017 Instruction Type:Provider Instructions for Treatment How to access health informa tion online Indication:BMI 34.0-34.9,adult Start:13-Nov-2016 Instruction Type:Patient Education How to access health informa tion online - Detail Indication:BMI 34.0-34.9,adult Start:13-Nov-2016 Instruction Type:Patient Education Patient Instructions Indication:BMI 34.0-34.9,adult Start:13-Nov-2016 Instruction Type:Provider Instructions for Treatment How to access health informa tion online Indication:Non-smoker Start:20-Oct-2016 Instruction Type:Patient Education How to access health informa tion online - Detail Indication:Non-smoker Start:20-Oct-2016 Instruction Type:Patient Education Patient Instructions Indication:Non-smoker Start:20-Oct-2016 Instruction Type:Provider Instructions for Treatment How to access health informa tion online Indication:Left hip pain Start:07-Aug-2016 Instruction Type:Patient Education How to access health informa tion online - Detail Indication:Left hip pain Start:07-Aug-2016 Instruction Type:Patient Education Patient Instructions Indication:Left hip pain Start:07-Aug-2016 Instruction Type:Provider Instructions for Treatment How to access health informa tion online Indication:Medicare welcome exam Start:13-May-2016 Instruction Type:Patient Education How to access health informa tion online - Detail Indication:Medicare welcome exam Start:13-May-2016 Instruction Type:Patient Education Patient Instructions Indication:Medicare welcome exam Start:13-May-2016 Instruction Type:Provider Instructions for Treatment How to access health informa tion online Indication:Vomiting and diarrhea Start:05-Mar-2016 Instruction Type:Patient Education How to access health informa tion online - Detail Indication:Vomiting and diarrhea Start:05-Mar-2016 Instruction Type:Patient Education Patient Instructions Indication:Vomiting and diarrhea Start:05-Mar-2016 Instruction Type:Provider Instructions for Treatment Patient Instructions Indication:Heart disease, hypertensive, malignant, without heart failure Start:14-May-2015 Instruction Type:Provider Instructions for Treatment How to access health informa tion online Indication:DIARRHEA (Renamed from D (diarrhea)) Start:04-Apr-2015 Instruction Type:Patient Education How to access health informa tion online - Detail Indication:DIARRHEA (Renamed from D (diarrhea)) Start:04-Apr-2015 Instruction Type:Patient Education Patient Instructions Indication:DIARRHEA (Renamed from D (diarrhea)) Start:04-Apr-2015 Instruction Type:Provider Instructions for Treatment Patient Instructions Indication:Blood pressure check Start:25-Apr-2013 Instruction Type:Provider Instructions for Treatment Patient Instructions Indication:Pre-operative examination Start:18-Apr-2013 Instruction Type:Provider Instructions for Treatment Patient Instructions Indication:Hypercalcemia Start:17-Jan-2013 Instruction Type:Provider Instructions for Treatment Patient Instructions Indication:Pre-operative examination Start:24-Dec-2012 Instruction Type:Provider Instructions for Treatment Patient Instructions Indication:Myalgia Start:27-Sep-2012 Instruction Type:Provider Instructions for Treatment Patient Instructions Indication:Acute sinusitis, unspecified Start:08-Sep-2012 Instruction Type:Provider Instructions for Treatment [facility] Work Phone: Instructions* Name Dates Details Patient Instructions Indication:BMI 36.0-36.9,adult Start:29-Aug-2022 Instruction Type:Provider Instructions for Treatment How to Access Health Informa tion Online using Patient Portal and [employer] Apps Indication:BMI 36.0-36.9,adult Start:29-Aug-2022 Instruction Type:Patient Education Patient Instructions Indication:COVID Start:30-Apr-2022 Instruction Type:Provider Instructions for Treatment Patient Instructions Indication:Fever Start:28-Apr-2022 Instruction Type:Provider Instructions for Treatment How to Access Health Informa tion Online using Patient Portal and [employer] Apps Indication:Fever Start:28-Apr-2022 Instruction Type:Patient Education How to Access Health Informa tion Online using Patient Portal and [employer] Apps Indication:Nonsmoker Start:02-Dec-2021 Instruction Type:Patient Education Patient Instructions Indication:Nonsmoker Start:02-Dec-2021 Instruction Type:Provider Instructions for Treatment Patient Instructions Indication:BMI 35.0-35.9,adult Start:08-Oct-2021 Instruction Type:Provider Instructions for Treatment How to Access Health Informa tion Online using Patient Portal and [employer] Apps Indication:BMI 35.0-35.9,adult Start:08-Oct-2021 Instruction Type:Patient Education Patient Instructions Indication:Nonsmoker Start:16-Aug-2021 Instruction Type:Provider Instructions for Treatment How to Access Health Informa tion Online using Patient Portal and [employer] Apps Indication:Nonsmoker Start:16-Aug-2021 Instruction Type:Patient Education Patient Instructions Indication:Ankle pain, left Start:13-Aug-2021 Instruction Type:Provider Instructions for Treatment How to Access Health Informa tion Online using Patient Portal and [employer] Apps Indication:Ankle pain, left Start:13-Aug-2021 Instruction Type:Patient Education Patient Instructions Indication:Nonsmoker Start:29-Apr-2021 Instruction Type:Provider Instructions for Treatment How to Access Health Informa tion Online using Patient Portal and [employer] Indication:Nonsmoker Start:29-Apr-2021 Instruction Type:Patient Education Patient Instructions Indication:Nonsmoker Start:30-Oct-2020 Instruction Type:Provider Instructions for Treatment How to Access Health Informa tion Online using Patient Portal and [employer] Apps Indication:Nonsmoker Start:30-Oct-2020 Instruction Type:Patient Education How to access health informa tion online Indication:Nonsmoker Start:14-Sep-2020 Instruction Type:Patient Education How to access health informa tion online - Detail Indication:Nonsmoker Start:14-Sep-2020 Instruction Type:Patient Education Patient Instructions Indication:Nonsmoker Start:14-Sep-2020 Instruction Type:Provider Instructions for Treatment How to access health informa tion online Indication:Nonsmoker Start:25-Apr-2020 Instruction Type:Patient Education How to access health informa tion online - Detail Indication:Nonsmoker Start:25-Apr-2020 Instruction Type:Patient Education Patient Instructions Indication:Nonsmoker Start:25-Apr-2020 Instruction Type:Provider Instructions for Treatment How to access health informa tion online Indication:Nonsmoker Start:16-Jan-2020 Instruction Type:Patient Education How to access health informa tion online - Detail Indication:Nonsmoker Start:16-Jan-2020 Instruction Type:Patient Education Patient Instructions Indication:Nonsmoker Start:16-Jan-2020 Instruction Type:Provider Instructions for Treatment How to access health informa tion online Indication:Nonsmoker Start:14-Oct-2019 Instruction Type:Patient Education How to access health informa tion online - Detail Indication:Nonsmoker Start:14-Oct-2019 Instruction Type:Patient Education Patient Instructions Indication:BMI 36.0-36.9,adult Start:14-Oct-2019 Instruction Type:Provider Instructions for Treatment How to access health informa tion online Indication:Unspecified Diagnosis Start:15-Aug-2019 Instruction Type:Patient Education How to access health informa tion online - Detail Indication:Unspecified Diagnosis Start:15-Aug-2019 Instruction Type:Patient Education Patient Instructions Indication:Unspecified Diagnosis Start:15-Aug-2019 Instruction Type:Provider Instructions for Treatment How to access health informa tion online Indication:Nonsmoker Start:13-Jul-2019 Instruction Type:Patient Education How to access health informa tion online - Detail Indication:Nonsmoker Start:13-Jul-2019 Instruction Type:Patient Education Patient Instructions Indication:Nonsmoker Start:13-Jul-2019 Instruction Type:Provider Instructions for Treatment How to access health informa tion online Indication:BMI 35.0-35.9,adult Start:25-Jan-2019 Instruction Type:Patient Education How to access health informa tion online - Detail Indication:BMI 35.0-35.9,adult Start:25-Jan-2019 Instruction Type:Patient Education Patient Instructions Indication:BMI 35.0-35.9,adult Start:25-Jan-2019 Instruction Type:Provider Instructions for Treatment How to access health informa tion online Indication:Snores Start:21-Aug-2017 Instruction Type:Patient Education How to access health informa tion online - Detail Indication:Snores Start:21-Aug-2017 Instruction Type:Patient Education Patient Instructions Indication:Snores Start:21-Aug-2017 Instruction Type:Provider Instructions for Treatment How to access health informa tion online Indication:Snores Start:27-Jul-2017 Instruction Type:Patient Education How to access health informa tion online - Detail Indication:Snores Start:27-Jul-2017 Instruction Type:Patient Education Patient Instructions Indication:Snores Start:27-Jul-2017 Instruction Type:Provider Instructions for Treatment How to access health informa tion online Indication:BMI 34.0-34.9,adult Start:13-Nov-2016 Instruction Type:Patient Education How to access health informa tion online - Detail Indication:BMI 34.0-34.9,adult Start:13-Nov-2016 Instruction Type:Patient Education Patient Instructions Indication:BMI 34.0-34.9,adult Start:13-Nov-2016 Instruction Type:Provider Instructions for Treatment How to access health informa tion online Indication:Non-smoker Start:20-Oct-2016 Instruction Type:Patient Education How to access health informa tion online - Detail Indication:Non-smoker Start:20-Oct-2016 Instruction Type:Patient Education Patient Instructions Indication:Non-smoker Start:20-Oct-2016 Instruction Type:Provider Instructions for Treatment How to access health informa tion online Indication:Left hip pain Start:07-Aug-2016 Instruction Type:Patient Education How to access health informa tion online - Detail Indication:Left hip pain Start:07-Aug-2016 Instruction Type:Patient Education Patient Instructions Indication:Left hip pain Start:07-Aug-2016 Instruction Type:Provider Instructions for Treatment How to access health informa tion online Indication:Medicare welcome exam Start:13-May-2016 Instruction Type:Patient Education How to access health informa tion online - Detail Indication:Medicare welcome exam Start:13-May-2016 Instruction Type:Patient Education Patient Instructions Indication:Medicare welcome exam Start:13-May-2016 Instruction Type:Provider Instructions for Treatment How to access health informa tion online Indication:Vomiting and diarrhea Start:05-Mar-2016 Instruction Type:Patient Education How to access health informa tion online - Detail Indication:Vomiting and diarrhea Start:05-Mar-2016 Instruction Type:Patient Education Patient Instructions Indication:Vomiting and diarrhea Start:05-Mar-2016 Instruction Type:Provider Instructions for Treatment Patient Instructions Indication:Heart disease, hypertensive, malignant, without heart failure Start:14-May-2015 Instruction Type:Provider Instructions for Treatment How to access health informa tion online Indication:DIARRHEA (Renamed from D (diarrhea)) Start:04-Apr-2015 Instruction Type:Patient Education How to access health informa tion online - Detail Indication:DIARRHEA (Renamed from D (diarrhea)) Start:04-Apr-2015 Instruction Type:Patient Education Patient Instructions Indication:DIARRHEA (Renamed from D (diarrhea)) Start:04-Apr-2015 Instruction Type:Provider Instructions for Treatment Patient Instructions Indication:Blood pressure check Start:25-Apr-2013 Instruction Type:Provider Instructions for Treatment Patient Instructions Indication:Pre-operative examination Start:18-Apr-2013 Instruction Type:Provider Instructions for Treatment Patient Instructions Indication:Hypercalcemia Start:17-Jan-2013 Instruction Type:Provider Instructions for Treatment Patient Instructions Indication:Pre-operative examination Start:24-Dec-2012 Instruction Type:Provider Instructions for Treatment Patient Instructions Indication:Myalgia Start:27-Sep-2012 Instruction Type:Provider Instructions for Treatment Patient Instructions Indication:Acute sinusitis, unspecified Start:08-Sep-2012 Instruction Type:Provider Instructions for Treatment [facility] Work Phone: Instructions* Name Dates Details Patient Instructions Indication:Hypertension Start:13-Feb-2023 Instruction Type:Provider Instructions for Treatment How to Access Health Informa tion Online using Patient Portal and [employer] Apps Indication:Hypertension Start:13-Feb-2023 Instruction Type:Patient Education Patient Instructions Indication:BMI 36.0-36.9,adult Start:29-Aug-2022 Instruction Type:Provider Instructions for Treatment How to Access Health Informa tion Online using Patient Portal and [employer] Apps Indication:BMI 36.0-36.9,adult Start:29-Aug-2022 Instruction Type:Patient Education Patient Instructions Indication:COVID Start:30-Apr-2022 Instruction Type:Provider Instructions for Treatment Patient Instructions Indication:Fever Start:28-Apr-2022 Instruction Type:Provider Instructions for Treatment How to Access Health Informa tion Online using Patient Portal and [employer] Apps Indication:Fever Start:28-Apr-2022 Instruction Type:Patient Education How to Access Health Informa tion Online using Patient Portal and [employer] Apps Indication:Nonsmoker Start:02-Dec-2021 Instruction Type:Patient Education Patient Instructions Indication:Nonsmoker Start:02-Dec-2021 Instruction Type:Provider Instructions for Treatment Patient Instructions Indication:BMI 35.0-35.9,adult Start:08-Oct-2021 Instruction Type:Provider Instructions for Treatment How to Access Health Informa tion Online using Patient Portal and [employer] Apps Indication:BMI 35.0-35.9,adult Start:08-Oct-2021 Instruction Type:Patient Education Patient Instructions Indication:Nonsmoker Start:16-Aug-2021 Instruction Type:Provider Instructions for Treatment How to Access Health Informa tion Online using Patient Portal and [employer] Apps Indication:Nonsmoker Start:16-Aug-2021 Instruction Type:Patient Education Patient Instructions Indication:Ankle pain, left Start:13-Aug-2021 Instruction Type:Provider Instructions for Treatment How to Access Health Informa tion Online using Patient Portal and [employer] Apps Indication:Ankle pain, left Start:13-Aug-2021 Instruction Type:Patient Education Patient Instructions Indication:Nonsmoker Start:29-Apr-2021 Instruction Type:Provider Instructions for Treatment How to Access Health Informa tion Online using Patient Portal and [employer] Apps Indication:Nonsmoker Start:29-Apr-2021 Instruction Type:Patient Education Patient Instructions Indication:Nonsmoker Start:30-Oct-2020 Instruction Type:Provider Instructions for Treatment How to Access Health Informa tion Online using Patient Portal and [employer] Apps Indication:Nonsmoker Start:30-Oct-2020 Instruction Type:Patient Education How to access health informa tion online Indication:Nonsmoker Start:14-Sep-2020 Instruction Type:Patient Education How to access health informa tion online - Detail Indication:Nonsmoker Start:14-Sep-2020 Instruction Type:Patient Education Patient Instructions Indication:Nonsmoker Start:14-Sep-2020 Instruction Type:Provider Instructions for Treatment How to access health informa tion online Indication:Nonsmoker Start:25-Apr-2020 Instruction Type:Patient Education How to access health informa tion online - Detail Indication:Nonsmoker Start:25-Apr-2020 Instruction Type:Patient Education Patient Instructions Indication:Nonsmoker Start:25-Apr-2020 Instruction Type:Provider Instructions for Treatment How to access health informa tion online Indication:Nonsmoker Start:16-Jan-2020 Instruction Type:Patient Education How to access health informa tion online - Detail Indication:Nonsmoker Start:16-Jan-2020 Instruction Type:Patient Education Patient Instructions Indication:Nonsmoker Start:16-Jan-2020 Instruction Type:Provider Instructions for Treatment How to access health informa tion online Indication:Nonsmoker Start:14-Oct-2019 Instruction Type:Patient Education How to access health informa tion online - Detail Indication:Nonsmoker Start:14-Oct-2019 Instruction Type:Patient Education Patient Instructions Indication:BMI 36.0-36.9,adult Start:14-Oct-2019 Instruction Type:Provider Instructions for Treatment How to access health informa tion online Indication:Unspecified Diagnosis Start:15-Aug-2019 Instruction Type:Patient Education How to access health informa tion online - Detail Indication:Unspecified Diagnosis Start:15-Aug-2019 Instruction Type:Patient Education Patient Instructions Indication:Unspecified Diagnosis Start:15-Aug-2019 Instruction Type:Provider Instructions for Treatment How to access health informa tion online Indication:Nonsmoker Start:13-Jul-2019 Instruction Type:Patient Education How to access health informa tion online - Detail Indication:Nonsmoker Start:13-Jul-2019 Instruction Type:Patient Education Patient Instructions Indication:Nonsmoker Start:13-Jul-2019 Instruction Type:Provider Instructions for Treatment How to access health informa tion online Indication:BMI 35.0-35.9,adult Start:25-Jan-2019 Instruction Type:Patient Education How to access health informa tion online - Detail Indication:BMI 35.0-35.9,adult Start:25-Jan-2019 Instruction Type:Patient Education Patient Instructions Indication:BMI 35.0-35.9,adult Start:25-Jan-2019 Instruction Type:Provider Instructions for Treatment How to access health informa tion online Indication:Snores Start:21-Aug-2017 Instruction Type:Patient Education How to access health informa tion online - Detail Indication:Snores Start:21-Aug-2017 Instruction Type:Patient Education Patient Instructions Indication:Snores Start:21-Aug-2017 Instruction Type:Provider Instructions for Treatment How to access health informa tion online Indication:Snores Start:27-Jul-2017 Instruction Type:Patient Education How to access health informa tion online - Detail Indication:Snores Start:27-Jul-2017 Instruction Type:Patient Education Patient Instructions Indication:Snores Start:27-Jul-2017 Instruction Type:Provider Instructions for Treatment How to access health informa tion online Indication:BMI 34.0-34.9,adult Start:13-Nov-2016 Instruction Type:Patient Education How to access health informa tion online - Detail Indication:BMI 34.0-34.9,adult Start:13-Nov-2016 Instruction Type:Patient Education Patient Instructions Indication:BMI 34.0-34.9,adult Start:13-Nov-2016 Instruction Type:Provider Instructions for Treatment How to access health informa tion online Indication:Non-smoker Start:20-Oct-2016 Instruction Type:Patient Education How to access health informa tion online - Detail Indication:Non-smoker Start:20-Oct-2016 Instruction Type:Patient Education Patient Instructions Indication:Non-smoker Start:20-Oct-2016 Instruction Type:Provider Instructions for Treatment How to access health informa tion online Indication:Left hip pain Start:07-Aug-2016 Instruction Type:Patient Education How to access health informa tion online - Detail Indication:Left hip pain Start:07-Aug-2016 Instruction Type:Patient Education Patient Instructions Indication:Left hip pain Start:07-Aug-2016 Instruction Type:Provider Instructions for Treatment How to access health informa tion online Indication:Medicare welcome exam Start:13-May-2016 Instruction Type:Patient Education How to access health informa tion online - Detail Indication:Medicare welcome exam Start:13-May-2016 Instruction Type:Patient Education Patient Instructions Indication:Medicare welcome exam Start:13-May-2016 Instruction Type:Provider Instructions for Treatment How to access health informa tion online Indication:Vomiting and diarrhea Start:05-Mar-2016 Instruction Type:Patient Education How to access health informa tion online - Detail Indication:Vomiting and diarrhea Start:05-Mar-2016 Instruction Type:Patient Education Patient Instructions Indication:Vomiting and diarrhea Start:05-Mar-2016 Instruction Type:Provider Instructions for Treatment Patient Instructions Indication:Heart disease, hypertensive, malignant, without heart failure Start:14-May-2015 Instruction Type:Provider Instructions for Treatment How to access health informa tion online Indication:DIARRHEA (Renamed from D (diarrhea)) Start:04-Apr-2015 Instruction Type:Patient Education How to access health informa tion online - Detail Indication:DIARRHEA (Renamed from D (diarrhea)) Start:04-Apr-2015 Instruction Type:Patient Education Patient Instructions Indication:DIARRHEA (Renamed from D (diarrhea)) Start:04-Apr-2015 Instruction Type:Provider Instructions for Treatment Patient Instructions Indication:Blood pressure check Start:25-Apr-2013 Instruction Type:Provider Instructions for Treatment Patient Instructions Indication:Pre-operative examination Start:18-Apr-2013 Instruction Type:Provider Instructions for Treatment Patient Instructions Indication:Hypercalcemia Start:17-Jan-2013 Instruction Type:Provider Instructions for Treatment Patient Instructions Indication:Pre-operative examination Start:24-Dec-2012 Instruction Type:Provider Instructions for Treatment Patient Instructions Indication:Myalgia Start:27-Sep-2012 Instruction Type:Provider Instructions for Treatment Patient Instructions Indication:Acute sinusitis, unspecified Start:08-Sep-2012 Instruction Type:Provider Instructions for Treatment [facility]; [facility] Work Phone: Instructions* Name Dates Details Patient Instructions Indication:Hypertension Start:13-Feb-2023 Instruction Type:Provider Instructions for Treatment How to Access Health Informa tion Online using Patient Portal and [employer] Apps Indication:Hypertension Start:13-Feb-2023 Instruction Type:Patient Education Patient Instructions Indication:BMI 36.0-36.9,adult Start:29-Aug-2022 Instruction Type:Provider Instructions for Treatment How to Access Health Informa tion Online using Patient Portal and [employer] Apps Indication:BMI 36.0-36.9,adult Start:29-Aug-2022 Instruction Type:Patient Education Patient Instructions Indication:COVID Start:30-Apr-2022 Instruction Type:Provider Instructions for Treatment Patient Instructions Indication:Fever Start:28-Apr-2022 Instruction Type:Provider Instructions for Treatment How to Access Health Informa tion Online using Patient Portal and [employer] Apps Indication:Fever Start:28-Apr-2022 Instruction Type:Patient Education How to Access Health Informa tion Online using Patient Portal and [employer] Apps Indication:Nonsmoker Start:02-Dec-2021 Instruction Type:Patient Education Patient Instructions Indication:Nonsmoker Start:02-Dec-2021 Instruction Type:Provider Instructions for Treatment Patient Instructions Indication:BMI 35.0-35.9,adult Start:08-Oct-2021 Instruction Type:Provider Instructions for Treatment How to Access Health Informa tion Online using Patient Portal and [employer] Apps Indication:BMI 35.0-35.9,adult Start:08-Oct-2021 Instruction Type:Patient Education Patient Instructions Indication:Nonsmoker Start:16-Aug-2021 Instruction Type:Provider Instructions for Treatment How to Access Health Informa tion Online using Patient Portal and [employer] Apps Indication:Nonsmoker Start:16-Aug-2021 Instruction Type:Patient Education Patient Instructions Indication:Ankle pain, left Start:13-Aug-2021 Instruction Type:Provider Instructions for Treatment How to Access Health Informa tion Online using Patient Portal and [employer] Apps Indication:Ankle pain, left Start:13-Aug-2021 Instruction Type:Patient Education Patient Instructions Indication:Nonsmoker Start:29-Apr-2021 Instruction Type:Provider Instructions for Treatment How to Access Health Informa tion Online using Patient Portal and [employer] Apps Indication:Nonsmoker Start:29-Apr-2021 Instruction Type:Patient Education Patient Instructions Indication:Nonsmoker Start:30-Oct-2020 Instruction Type:Provider Instructions for Treatment How to Access Health Informa tion Online using Patient Portal and [employer] Apps Indication:Nonsmoker Start:30-Oct-2020 Instruction Type:Patient Education How to access health informa tion online Indication:Nonsmoker Start:14-Sep-2020 Instruction Type:Patient Education How to access health informa tion online - Detail Indication:Nonsmoker Start:14-Sep-2020 Instruction Type:Patient Education Patient Instructions Indication:Nonsmoker Start:14-Sep-2020 Instruction Type:Provider Instructions for Treatment How to access health informa tion online Indication:Nonsmoker Start:25-Apr-2020 Instruction Type:Patient Education How to access health informa tion online - Detail Indication:Nonsmoker Start:25-Apr-2020 Instruction Type:Patient Education Patient Instructions Indication:Nonsmoker Start:25-Apr-2020 Instruction Type:Provider Instructions for Treatment How to access health informa tion online Indication:Nonsmoker Start:16-Jan-2020 Instruction Type:Patient Education How to access health informa tion online - Detail Indication:Nonsmoker Start:16-Jan-2020 Instruction Type:Patient Education Patient Instructions Indication:Nonsmoker Start:16-Jan-2020 Instruction Type:Provider Instructions for Treatment How to access health informa tion online Indication:Nonsmoker Start:14-Oct-2019 Instruction Type:Patient Education How to access health informa tion online - Detail Indication:Nonsmoker Start:14-Oct-2019 Instruction Type:Patient Education Patient Instructions Indication:BMI 36.0-36.9,adult Start:14-Oct-2019 Instruction Type:Provider Instructions for Treatment How to access health informa tion online Indication:Unspecified Diagnosis Start:15-Aug-2019 Instruction Type:Patient Education How to access health informa tion online - Detail Indication:Unspecified Diagnosis Start:15-Aug-2019 Instruction Type:Patient Education Patient Instructions Indication:Unspecified Diagnosis Start:15-Aug-2019 Instruction Type:Provider Instructions for Treatment How to access health informa tion online Indication:Nonsmoker Start:13-Jul-2019 Instruction Type:Patient Education How to access health informa tion online - Detail Indication:Nonsmoker Start:13-Jul-2019 Instruction Type:Patient Education Patient Instructions Indication:Nonsmoker Start:13-Jul-2019 Instruction Type:Provider Instructions for Treatment How to access health informa tion online Indication:BMI 35.0-35.9,adult Start:25-Jan-2019 Instruction Type:Patient Education How to access health informa tion online - Detail Indication:BMI 35.0-35.9,adult Start:25-Jan-2019 Instruction Type:Patient Education Patient Instructions Indication:BMI 35.0-35.9,adult Start:25-Jan-2019 Instruction Type:Provider Instructions for Treatment How to access health informa tion online Indication:Snores Start:21-Aug-2017 Instruction Type:Patient Education How to access health informa tion online - Detail Indication:Snores Start:21-Aug-2017 Instruction Type:Patient Education Patient Instructions Indication:Snores Start:21-Aug-2017 Instruction Type:Provider Instructions for Treatment How to access health informa tion online Indication:Snores Start:27-Jul-2017 Instruction Type:Patient Education How to access health informa tion online - Detail Indication:Snores Start:27-Jul-2017 Instruction Type:Patient Education Patient Instructions Indication:Snores Start:27-Jul-2017 Instruction Type:Provider Instructions for Treatment How to access health informa tion online Indication:BMI 34.0-34.9,adult Start:13-Nov-2016 Instruction Type:Patient Education How to access health informa tion online - Detail Indication:BMI 34.0-34.9,adult Start:13-Nov-2016 Instruction Type:Patient Education Patient Instructions Indication:BMI 34.0-34.9,adult Start:13-Nov-2016 Instruction Type:Provider Instructions for Treatment How to access health informa tion online Indication:Non-smoker Start:20-Oct-2016 Instruction Type:Patient Education How to access health informa tion online - Detail Indication:Non-smoker Start:20-Oct-2016 Instruction Type:Patient Education Patient Instructions Indication:Non-smoker Start:20-Oct-2016 Instruction Type:Provider Instructions for Treatment How to access health informa tion online Indication:Left hip pain Start:07-Aug-2016 Instruction Type:Patient Education How to access health informa tion online - Detail Indication:Left hip pain Start:07-Aug-2016 Instruction Type:Patient Education Patient Instructions Indication:Left hip pain Start:07-Aug-2016 Instruction Type:Provider Instructions for Treatment How to access health informa tion online Indication:Medicare welcome exam Start:13-May-2016 Instruction Type:Patient Education How to access health informa tion online - Detail Indication:Medicare welcome exam Start:13-May-2016 Instruction Type:Patient Education Patient Instructions Indication:Medicare welcome exam Start:13-May-2016 Instruction Type:Provider Instructions for Treatment How to access health informa tion online Indication:Vomiting and diarrhea Start:05-Mar-2016 Instruction Type:Patient Education How to access health informa tion online - Detail Indication:Vomiting and diarrhea Start:05-Mar-2016 Instruction Type:Patient Education Patient Instructions Indication:Vomiting and diarrhea Start:05-Mar-2016 Instruction Type:Provider Instructions for Treatment Patient Instructions Indication:Heart disease, hypertensive, malignant, without heart failure Start:14-May-2015 Instruction Type:Provider Instructions for Treatment How to access health informa tion online Indication:DIARRHEA (Renamed from D (diarrhea)) Start:04-Apr-2015 Instruction Type:Patient Education How to access health informa tion online - Detail Indication:DIARRHEA (Renamed from D (diarrhea)) Start:04-Apr-2015 Instruction Type:Patient Education Patient Instructions Indication:DIARRHEA (Renamed from D (diarrhea)) Start:04-Apr-2015 Instruction Type:Provider Instructions for Treatment Patient Instructions Indication:Blood pressure check Start:25-Apr-2013 Instruction Type:Provider Instructions for Treatment Patient Instructions Indication:Pre-operative examination Start:18-Apr-2013 Instruction Type:Provider Instructions for Treatment Patient Instructions Indication:Hypercalcemia Start:17-Jan-2013 Instruction Type:Provider Instructions for Treatment Patient Instructions Indication:Pre-operative examination Start:24-Dec-2012 Instruction Type:Provider Instructions for Treatment Patient Instructions Indication:Myalgia Start:27-Sep-2012 Instruction Type:Provider Instructions for Treatment Patient Instructions Indication:Acute sinusitis, unspecified Start:08-Sep-2012 Instruction Type:Provider Instructions for Treatment [facility]; [facility] Work Phone: Instructions* Name Dates Details Patient Instructions Indication:Hypertension Start:13-Feb-2023 Instruction Type:Provider Instructions for Treatment How to Access Health Informa tion Online using Patient Portal and [employer] Apps Indication:Hypertension Start:13-Feb-2023 Instruction Type:Patient Education Patient Instructions Indication:BMI 36.0-36.9,adult Start:29-Aug-2022 Instruction Type:Provider Instructions for Treatment How to Access Health Informa tion Online using Patient Portal and [employer] Apps Indication:BMI 36.0-36.9,adult Start:29-Aug-2022 Instruction Type:Patient Education Patient Instructions Indication:COVID Start:30-Apr-2022 Instruction Type:Provider Instructions for Treatment Patient Instructions Indication:Fever Start:28-Apr-2022 Instruction Type:Provider Instructions for Treatment How to Access Health Informa tion Online using Patient Portal and [employer] Apps Indication:Fever Start:28-Apr-2022 Instruction Type:Patient Education How to Access Health Informa tion Online using Patient Portal and [employer] Apps Indication:Nonsmoker Start:02-Dec-2021 Instruction Type:Patient Education Patient Instructions Indication:Nonsmoker Start:02-Dec-2021 Instruction Type:Provider Instructions for Treatment Patient Instructions Indication:BMI 35.0-35.9,adult Start:08-Oct-2021 Instruction Type:Provider Instructions for Treatment How to Access Health Informa tion Online using Patient Portal and [employer] Apps Indication:BMI 35.0-35.9,adult Start:08-Oct-2021 Instruction Type:Patient Education Patient Instructions Indication:Nonsmoker Start:16-Aug-2021 Instruction Type:Provider Instructions for Treatment How to Access Health Informa tion Online using Patient Portal and [employer] Apps Indication:Nonsmoker Start:16-Aug-2021 Instruction Type:Patient Education Patient Instructions Indication:Ankle pain, left Start:13-Aug-2021 Instruction Type:Provider Instructions for Treatment How to Access Health Informa tion Online using Patient Portal and [employer] Apps Indication:Ankle pain, left Start:13-Aug-2021 Instruction Type:Patient Education Patient Instructions Indication:Nonsmoker Start:29-Apr-2021 Instruction Type:Provider Instructions for Treatment How to Access Health Informa tion Online using Patient Portal and [employer] Apps Indication:Nonsmoker Start:29-Apr-2021 Instruction Type:Patient Education Patient Instructions Indication:Nonsmoker Start:30-Oct-2020 Instruction Type:Provider Instructions for Treatment How to Access Health Informa tion Online using Patient Portal and [employer] Apps Indication:Nonsmoker Start:30-Oct-2020 Instruction Type:Patient Education How to access health informa tion online Indication:Nonsmoker Start:14-Sep-2020 Instruction Type:Patient Education How to access health informa tion online - Detail Indication:Nonsmoker Start:14-Sep-2020 Instruction Type:Patient Education Patient Instructions Indication:Nonsmoker Start:14-Sep-2020 Instruction Type:Provider Instructions for Treatment How to access health informa tion online Indication:Nonsmoker Start:25-Apr-2020 Instruction Type:Patient Education How to access health informa tion online - Detail Indication:Nonsmoker Start:25-Apr-2020 Instruction Type:Patient Education Patient Instructions Indication:Nonsmoker Start:25-Apr-2020 Instruction Type:Provider Instructions for Treatment How to access health informa tion online Indication:Nonsmoker Start:16-Jan-2020 Instruction Type:Patient Education How to access health informa tion online - Detail Indication:Nonsmoker Start:16-Jan-2020 Instruction Type:Patient Education Patient Instructions Indication:Nonsmoker Start:16-Jan-2020 Instruction Type:Provider Instructions for Treatment How to access health informa tion online Indication:Nonsmoker Start:14-Oct-2019 Instruction Type:Patient Education How to access health informa tion online - Detail Indication:Nonsmoker Start:14-Oct-2019 Instruction Type:Patient Education Patient Instructions Indication:BMI 36.0-36.9,adult Start:14-Oct-2019 Instruction Type:Provider Instructions for Treatment How to access health informa tion online Indication:Unspecified Diagnosis Start:15-Aug-2019 Instruction Type:Patient Education How to access health informa tion online - Detail Indication:Unspecified Diagnosis Start:15-Aug-2019 Instruction Type:Patient Education Patient Instructions Indication:Unspecified Diagnosis Start:15-Aug-2019 Instruction Type:Provider Instructions for Treatment How to access health informa tion online Indication:Nonsmoker Start:13-Jul-2019 Instruction Type:Patient Education How to access health informa tion online - Detail Indication:Nonsmoker Start:13-Jul-2019 Instruction Type:Patient Education Patient Instructions Indication:Nonsmoker Start:13-Jul-2019 Instruction Type:Provider Instructions for Treatment How to access health informa tion online Indication:BMI 35.0-35.9,adult Start:25-Jan-2019 Instruction Type:Patient Education How to access health informa tion online - Detail Indication:BMI 35.0-35.9,adult Start:25-Jan-2019 Instruction Type:Patient Education Patient Instructions Indication:BMI 35.0-35.9,adult Start:25-Jan-2019 Instruction Type:Provider Instructions for Treatment How to access health informa tion online Indication:Snores Start:21-Aug-2017 Instruction Type:Patient Education How to access health informa tion online - Detail Indication:Snores Start:21-Aug-2017 Instruction Type:Patient Education Patient Instructions Indication:Snores Start:21-Aug-2017 Instruction Type:Provider Instructions for Treatment How to access health informa tion online Indication:Snores Start:27-Jul-2017 Instruction Type:Patient Education How to access health informa tion online - Detail Indication:Snores Start:27-Jul-2017 Instruction Type:Patient Education Patient Instructions Indication:Snores Start:27-Jul-2017 Instruction Type:Provider Instructions for Treatment How to access health informa tion online Indication:BMI 34.0-34.9,adult Start:13-Nov-2016 Instruction Type:Patient Education How to access health informa tion online - Detail Indication:BMI 34.0-34.9,adult Start:13-Nov-2016 Instruction Type:Patient Education Patient Instructions Indication:BMI 34.0-34.9,adult Start:13-Nov-2016 Instruction Type:Provider Instructions for Treatment How to access health informa tion online Indication:Non-smoker Start:20-Oct-2016 Instruction Type:Patient Education How to access health informa tion online - Detail Indication:Non-smoker Start:20-Oct-2016 Instruction Type:Patient Education Patient Instructions Indication:Non-smoker Start:20-Oct-2016 Instruction Type:Provider Instructions for Treatment How to access health informa tion online Indication:Left hip pain Start:07-Aug-2016 Instruction Type:Patient Education How to access health informa tion online - Detail Indication:Left hip pain Start:07-Aug-2016 Instruction Type:Patient Education Patient Instructions Indication:Left hip pain Start:07-Aug-2016 Instruction Type:Provider Instructions for Treatment How to access health informa tion online Indication:Medicare welcome exam Start:13-May-2016 Instruction Type:Patient Education How to access health informa tion online - Detail Indication:Medicare welcome exam Start:13-May-2016 Instruction Type:Patient Education Patient Instructions Indication:Medicare welcome exam Start:13-May-2016 Instruction Type:Provider Instructions for Treatment How to access health informa tion online Indication:Vomiting and diarrhea Start:05-Mar-2016 Instruction Type:Patient Education How to access health informa tion online - Detail Indication:Vomiting and diarrhea Start:05-Mar-2016 Instruction Type:Patient Education Patient Instructions Indication:Vomiting and diarrhea Start:05-Mar-2016 Instruction Type:Provider Instructions for Treatment Patient Instructions Indication:Heart disease, hypertensive, malignant, without heart failure Start:14-May-2015 Instruction Type:Provider Instructions for Treatment How to access health informa tion online Indication:DIARRHEA (Renamed from D (diarrhea)) Start:04-Apr-2015 Instruction Type:Patient Education How to access health informa tion online - Detail Indication:DIARRHEA (Renamed from D (diarrhea)) Start:04-Apr-2015 Instruction Type:Patient Education Patient Instructions Indication:DIARRHEA (Renamed from D (diarrhea)) Start:04-Apr-2015 Instruction Type:Provider Instructions for Treatment Patient Instructions Indication:Blood pressure check Start:25-Apr-2013 Instruction Type:Provider Instructions for Treatment Patient Instructions Indication:Pre-operative examination Start:18-Apr-2013 Instruction Type:Provider Instructions for Treatment Patient Instructions Indication:Hypercalcemia Start:17-Jan-2013 Instruction Type:Provider Instructions for Treatment Patient Instructions Indication:Pre-operative examination Start:24-Dec-2012 Instruction Type:Provider Instructions for Treatment Patient Instructions Indication:Myalgia Start:27-Sep-2012 Instruction Type:Provider Instructions for Treatment Patient Instructions Indication:Acute sinusitis, unspecified Start:08-Sep-2012 Instruction Type:Provider Instructions for Treatment [facility] Work Phone: Instructions* Name Dates Details Patient Instructions Indication:Hypertension Start:13-Feb-2023 Instruction Type:Provider Instructions for Treatment How to Access Health Informa tion Online using Patient Portal and [employer] Apps Indication:Hypertension Start:13-Feb-2023 Instruction Type:Patient Education Patient Instructions Indication:BMI 36.0-36.9,adult Start:29-Aug-2022 Instruction Type:Provider Instructions for Treatment How to Access Health Informa tion Online using Patient Portal and [employer] Apps Indication:BMI 36.0-36.9,adult Start:29-Aug-2022 Instruction Type:Patient Education Patient Instructions Indication:COVID Start:30-Apr-2022 Instruction Type:Provider Instructions for Treatment Patient Instructions Indication:Fever Start:28-Apr-2022 Instruction Type:Provider Instructions for Treatment How to Access Health Informa tion Online using Patient Portal and [employer] Apps Indication:Fever Start:28-Apr-2022 Instruction Type:Patient Education How to Access Health Informa tion Online using Patient Portal and [employer] Apps Indication:Nonsmoker Start:02-Dec-2021 Instruction Type:Patient Education Patient Instructions Indication:Nonsmoker Start:02-Dec-2021 Instruction Type:Provider Instructions for Treatment Patient Instructions Indication:BMI 35.0-35.9,adult Start:08-Oct-2021 Instruction Type:Provider Instructions for Treatment How to Access Health Informa tion Online using Patient Portal and [employer] Apps Indication:BMI 35.0-35.9,adult Start:08-Oct-2021 Instruction Type:Patient Education Patient Instructions Indication:Nonsmoker Start:16-Aug-2021 Instruction Type:Provider Instructions for Treatment How to Access Health Informa tion Online using Patient Portal and [employer] Apps Indication:Nonsmoker Start:16-Aug-2021 Instruction Type:Patient Education Patient Instructions Indication:Ankle pain, left Start:13-Aug-2021 Instruction Type:Provider Instructions for Treatment How to Access Health Informa tion Online using Patient Portal and [employer] Apps Indication:Ankle pain, left Start:13-Aug-2021 Instruction Type:Patient Education Patient Instructions Indication:Nonsmoker Start:29-Apr-2021 Instruction Type:Provider Instructions for Treatment How to Access Health Informa tion Online using Patient Portal and [employer] Apps Indication:Nonsmoker Start:29-Apr-2021 Instruction Type:Patient Education Patient Instructions Indication:Nonsmoker Start:30-Oct-2020 Instruction Type:Provider Instructions for Treatment How to Access Health Informa tion Online using Patient Portal and [employer] Apps Indication:Nonsmoker Start:30-Oct-2020 Instruction Type:Patient Education How to access health informa tion online Indication:Nonsmoker Start:14-Sep-2020 Instruction Type:Patient Education How to access health informa tion online - Detail Indication:Nonsmoker Start:14-Sep-2020 Instruction Type:Patient Education Patient Instructions Indication:Nonsmoker Start:14-Sep-2020 Instruction Type:Provider Instructions for Treatment How to access health informa tion online Indication:Nonsmoker Start:25-Apr-2020 Instruction Type:Patient Education How to access health informa tion online - Detail Indication:Nonsmoker Start:25-Apr-2020 Instruction Type:Patient Education Patient Instructions Indication:Nonsmoker Start:25-Apr-2020 Instruction Type:Provider Instructions for Treatment How to access health informa tion online Indication:Nonsmoker Start:16-Jan-2020 Instruction Type:Patient Education How to access health informa tion online - Detail Indication:Nonsmoker Start:16-Jan-2020 Instruction Type:Patient Education Patient Instructions Indication:Nonsmoker Start:16-Jan-2020 Instruction Type:Provider Instructions for Treatment How to access health informa tion online Indication:Nonsmoker Start:14-Oct-2019 Instruction Type:Patient Education How to access health informa tion online - Detail Indication:Nonsmoker Start:14-Oct-2019 Instruction Type:Patient Education Patient Instructions Indication:BMI 36.0-36.9,adult Start:14-Oct-2019 Instruction Type:Provider Instructions for Treatment How to access health informa tion online Indication:Unspecified Diagnosis Start:15-Aug-2019 Instruction Type:Patient Education How to access health informa tion online - Detail Indication:Unspecified Diagnosis Start:15-Aug-2019 Instruction Type:Patient Education Patient Instructions Indication:Unspecified Diagnosis Start:15-Aug-2019 Instruction Type:Provider Instructions for Treatment How to access health informa tion online Indication:Nonsmoker Start:13-Jul-2019 Instruction Type:Patient Education How to access health informa tion online - Detail Indication:Nonsmoker Start:13-Jul-2019 Instruction Type:Patient Education Patient Instructions Indication:Nonsmoker Start:13-Jul-2019 Instruction Type:Provider Instructions for Treatment How to access health informa tion online Indication:BMI 35.0-35.9,adult Start:25-Jan-2019 Instruction Type:Patient Education How to access health informa tion online - Detail Indication:BMI 35.0-35.9,adult Start:25-Jan-2019 Instruction Type:Patient Education Patient Instructions Indication:BMI 35.0-35.9,adult Start:25-Jan-2019 Instruction Type:Provider Instructions for Treatment How to access health informa tion online Indication:Snores Start:21-Aug-2017 Instruction Type:Patient Education How to access health informa tion online - Detail Indication:Snores Start:21-Aug-2017 Instruction Type:Patient Education Patient Instructions Indication:Snores Start:21-Aug-2017 Instruction Type:Provider Instructions for Treatment How to access health informa tion online Indication:Snores Start:27-Jul-2017 Instruction Type:Patient Education How to access health informa tion online - Detail Indication:Snores Start:27-Jul-2017 Instruction Type:Patient Education Patient Instructions Indication:Snores Start:27-Jul-2017 Instruction Type:Provider Instructions for Treatment How to access health informa tion online Indication:BMI 34.0-34.9,adult Start:13-Nov-2016 Instruction Type:Patient Education How to access health informa tion online - Detail Indication:BMI 34.0-34.9,adult Start:13-Nov-2016 Instruction Type:Patient Education Patient Instructions Indication:BMI 34.0-34.9,adult Start:13-Nov-2016 Instruction Type:Provider Instructions for Treatment How to access health informa tion online Indication:Non-smoker Start:20-Oct-2016 Instruction Type:Patient Education How to access health informa tion online - Detail Indication:Non-smoker Start:20-Oct-2016 Instruction Type:Patient Education Patient Instructions Indication:Non-smoker Start:20-Oct-2016 Instruction Type:Provider Instructions for Treatment How to access health informa tion online Indication:Left hip pain Start:07-Aug-2016 Instruction Type:Patient Education How to access health informa tion online - Detail Indication:Left hip pain Start:07-Aug-2016 Instruction Type:Patient Education Patient Instructions Indication:Left hip pain Start:07-Aug-2016 Instruction Type:Provider Instructions for Treatment How to access health informa tion online Indication:Medicare welcome exam Start:13-May-2016 Instruction Type:Patient Education How to access health informa tion online - Detail Indication:Medicare welcome exam Start:13-May-2016 Instruction Type:Patient Education Patient Instructions Indication:Medicare welcome exam Start:13-May-2016 Instruction Type:Provider Instructions for Treatment How to access health informa tion online Indication:Vomiting and diarrhea Start:05-Mar-2016 Instruction Type:Patient Education How to access health informa tion online - Detail Indication:Vomiting and diarrhea Start:05-Mar-2016 Instruction Type:Patient Education Patient Instructions Indication:Vomiting and diarrhea Start:05-Mar-2016 Instruction Type:Provider Instructions for Treatment Patient Instructions Indication:Heart disease, hypertensive, malignant, without heart failure Start:14-May-2015 Instruction Type:Provider Instructions for Treatment How to access health informa tion online Indication:DIARRHEA (Renamed from D (diarrhea)) Start:04-Apr-2015 Instruction Type:Patient Education How to access health informa tion online - Detail Indication:DIARRHEA (Renamed from D (diarrhea)) Start:04-Apr-2015 Instruction Type:Patient Education Patient Instructions Indication:DIARRHEA (Renamed from D (diarrhea)) Start:04-Apr-2015 Instruction Type:Provider Instructions for Treatment Patient Instructions Indication:Blood pressure check Start:25-Apr-2013 Instruction Type:Provider Instructions for Treatment Patient Instructions Indication:Pre-operative examination Start:18-Apr-2013 Instruction Type:Provider Instructions for Treatment Patient Instructions Indication:Hypercalcemia Start:17-Jan-2013 Instruction Type:Provider Instructions for Treatment Patient Instructions Indication:Pre-operative examination Start:24-Dec-2012 Instruction Type:Provider Instructions for Treatment Patient Instructions Indication:Myalgia Start:27-Sep-2012 Instruction Type:Provider Instructions for Treatment Patient Instructions Indication:Acute sinusitis, unspecified Start:08-Sep-2012 Instruction Type:Provider Instructions for Treatment [facility]; [facility] Work Phone: Instructions* Name Dates Details Patient Instructions Indication:Hypertension Start:13-Feb-2023 Instruction Type:Provider Instructions for Treatment How to Access Health Informa tion Online using Patient Portal and [employer] Apps Indication:Hypertension Start:13-Feb-2023 Instruction Type:Patient Education Patient Instructions Indication:BMI 36.0-36.9,adult Start:29-Aug-2022 Instruction Type:Provider Instructions for Treatment How to Access Health Informa tion Online using Patient Portal and [employer] Apps Indication:BMI 36.0-36.9,adult Start:29-Aug-2022 Instruction Type:Patient Education Patient Instructions Indication:COVID Start:30-Apr-2022 Instruction Type:Provider Instructions for Treatment Patient Instructions Indication:Fever Start:28-Apr-2022 Instruction Type:Provider Instructions for Treatment How to Access Health Informa tion Online using Patient Portal and [employer] Apps Indication:Fever Start:28-Apr-2022 Instruction Type:Patient Education How to Access Health Informa tion Online using Patient Portal and [employer] Apps Indication:Nonsmoker Start:02-Dec-2021 Instruction Type:Patient Education Patient Instructions Indication:Nonsmoker Start:02-Dec-2021 Instruction Type:Provider Instructions for Treatment Patient Instructions Indication:BMI 35.0-35.9,adult Start:08-Oct-2021 Instruction Type:Provider Instructions for Treatment How to Access Health Informa tion Online using Patient Portal and [employer] Apps Indication:BMI 35.0-35.9,adult Start:08-Oct-2021 Instruction Type:Patient Education Patient Instructions Indication:Nonsmoker Start:16-Aug-2021 Instruction Type:Provider Instructions for Treatment How to Access Health Informa tion Online using Patient Portal and [employer] Apps Indication:Nonsmoker Start:16-Aug-2021 Instruction Type:Patient Education Patient Instructions Indication:Ankle pain, left Start:13-Aug-2021 Instruction Type:Provider Instructions for Treatment How to Access Health Informa tion Online using Patient Portal and [employer] Apps Indication:Ankle pain, left Start:13-Aug-2021 Instruction Type:Patient Education Patient Instructions Indication:Nonsmoker Start:29-Apr-2021 Instruction Type:Provider Instructions for Treatment How to Access Health Informa tion Online using Patient Portal and [employer] Apps Indication:Nonsmoker Start:29-Apr-2021 Instruction Type:Patient Education Patient Instructions Indication:Nonsmoker Start:30-Oct-2020 Instruction Type:Provider Instructions for Treatment How to Access Health Informa tion Online using Patient Portal and [employer] Apps Indication:Nonsmoker Start:30-Oct-2020 Instruction Type:Patient Education How to access health informa tion online Indication:Nonsmoker Start:14-Sep-2020 Instruction Type:Patient Education How to access health informa tion online - Detail Indication:Nonsmoker Start:14-Sep-2020 Instruction Type:Patient Education Patient Instructions Indication:Nonsmoker Start:14-Sep-2020 Instruction Type:Provider Instructions for Treatment How to access health informa tion online Indication:Nonsmoker Start:25-Apr-2020 Instruction Type:Patient Education How to access health informa tion online - Detail Indication:Nonsmoker Start:25-Apr-2020 Instruction Type:Patient Education Patient Instructions Indication:Nonsmoker Start:25-Apr-2020 Instruction Type:Provider Instructions for Treatment How to access health informa tion online Indication:Nonsmoker Start:16-Jan-2020 Instruction Type:Patient Education How to access health informa tion online - Detail Indication:Nonsmoker Start:16-Jan-2020 Instruction Type:Patient Education Patient Instructions Indication:Nonsmoker Start:16-Jan-2020 Instruction Type:Provider Instructions for Treatment How to access health informa tion online Indication:Nonsmoker Start:14-Oct-2019 Instruction Type:Patient Education How to access health informa tion online - Detail Indication:Nonsmoker Start:14-Oct-2019 Instruction Type:Patient Education Patient Instructions Indication:BMI 36.0-36.9,adult Start:14-Oct-2019 Instruction Type:Provider Instructions for Treatment How to access health informa tion online Indication:Unspecified Diagnosis Start:15-Aug-2019 Instruction Type:Patient Education How to access health informa tion online - Detail Indication:Unspecified Diagnosis Start:15-Aug-2019 Instruction Type:Patient Education Patient Instructions Indication:Unspecified Diagnosis Start:15-Aug-2019 Instruction Type:Provider Instructions for Treatment How to access health informa tion online Indication:Nonsmoker Start:13-Jul-2019 Instruction Type:Patient Education How to access health informa tion online - Detail Indication:Nonsmoker Start:13-Jul-2019 Instruction Type:Patient Education Patient Instructions Indication:Nonsmoker Start:13-Jul-2019 Instruction Type:Provider Instructions for Treatment How to access health informa tion online Indication:BMI 35.0-35.9,adult Start:25-Jan-2019 Instruction Type:Patient Education How to access health informa tion online - Detail Indication:BMI 35.0-35.9,adult Start:25-Jan-2019 Instruction Type:Patient Education Patient Instructions Indication:BMI 35.0-35.9,adult Start:25-Jan-2019 Instruction Type:Provider Instructions for Treatment How to access health informa tion online Indication:Snores Start:21-Aug-2017 Instruction Type:Patient Education How to access health informa tion online - Detail Indication:Snores Start:21-Aug-2017 Instruction Type:Patient Education Patient Instructions Indication:Snores Start:21-Aug-2017 Instruction Type:Provider Instructions for Treatment How to access health informa tion online Indication:Snores Start:27-Jul-2017 Instruction Type:Patient Education How to access health informa tion online - Detail Indication:Snores Start:27-Jul-2017 Instruction Type:Patient Education Patient Instructions Indication:Snores Start:27-Jul-2017 Instruction Type:Provider Instructions for Treatment How to access health informa tion online Indication:BMI 34.0-34.9,adult Start:13-Nov-2016 Instruction Type:Patient Education How to access health informa tion online - Detail Indication:BMI 34.0-34.9,adult Start:13-Nov-2016 Instruction Type:Patient Education Patient Instructions Indication:BMI 34.0-34.9,adult Start:13-Nov-2016 Instruction Type:Provider Instructions for Treatment How to access health informa tion online Indication:Non-smoker Start:20-Oct-2016 Instruction Type:Patient Education How to access health informa tion online - Detail Indication:Non-smoker Start:20-Oct-2016 Instruction Type:Patient Education Patient Instructions Indication:Non-smoker Start:20-Oct-2016 Instruction Type:Provider Instructions for Treatment How to access health informa tion online Indication:Left hip pain Start:07-Aug-2016 Instruction Type:Patient Education How to access health informa tion online - Detail Indication:Left hip pain Start:07-Aug-2016 Instruction Type:Patient Education Patient Instructions Indication:Left hip pain Start:07-Aug-2016 Instruction Type:Provider Instructions for Treatment How to access health informa tion online Indication:Medicare welcome exam Start:13-May-2016 Instruction Type:Patient Education How to access health informa tion online - Detail Indication:Medicare welcome exam Start:13-May-2016 Instruction Type:Patient Education Patient Instructions Indication:Medicare welcome exam Start:13-May-2016 Instruction Type:Provider Instructions for Treatment How to access health informa tion online Indication:Vomiting and diarrhea Start:05-Mar-2016 Instruction Type:Patient Education How to access health informa tion online - Detail Indication:Vomiting and diarrhea Start:05-Mar-2016 Instruction Type:Patient Education Patient Instructions Indication:Vomiting and diarrhea Start:05-Mar-2016 Instruction Type:Provider Instructions for Treatment Patient Instructions Indication:Heart disease, hypertensive, malignant, without heart failure Start:14-May-2015 Instruction Type:Provider Instructions for Treatment How to access health informa tion online Indication:DIARRHEA (Renamed from D (diarrhea)) Start:04-Apr-2015 Instruction Type:Patient Education How to access health informa tion online - Detail Indication:DIARRHEA (Renamed from D (diarrhea)) Start:04-Apr-2015 Instruction Type:Patient Education Patient Instructions Indication:DIARRHEA (Renamed from D (diarrhea)) Start:04-Apr-2015 Instruction Type:Provider Instructions for Treatment Patient Instructions Indication:Blood pressure check Start:25-Apr-2013 Instruction Type:Provider Instructions for Treatment Patient Instructions Indication:Pre-operative examination Start:18-Apr-2013 Instruction Type:Provider Instructions for Treatment Patient Instructions Indication:Hypercalcemia Start:17-Jan-2013 Instruction Type:Provider Instructions for Treatment Patient Instructions Indication:Pre-operative examination Start:24-Dec-2012 Instruction Type:Provider Instructions for Treatment Patient Instructions Indication:Myalgia Start:27-Sep-2012 Instruction Type:Provider Instructions for Treatment Patient Instructions Indication:Acute sinusitis, unspecified Start:08-Sep-2012 Instruction Type:Provider Instructions for Treatment [facility] Work Phone: reason for referral (narrative)* Outpatient Procedure (Routine) - Pending Review Specialty Diagnoses / Procedures Referred By Contac t Referred To Contact [facility] Diagnoses Carotid stenosis, asymptomatic, bilateral Procedures US CAROTID ARTERIES JANEL [facility] LAB DUPLEX SCAN EXTRACRANIAL ART COMPL BI STUDY Maikel Avila MD [address] [employer] [place] [address] [facility] [address] [place] [address] Referral ID Status Reason Start Date Expiration Date Visits Requested Visits Authorized [id number] Pending Review Auto-Generat ed Referral 2 01/09/2023 [facility] Procedure (Routine) - Pending Review Specialty Diagnoses / Procedures Referred By Contac t Referred To Contact [facility] Diagnoses Carotid stenosis, asymptomatic, bilateral Procedures US CAROTID ARTERIES JANEL V[facility] LAB DUPLEX SCAN EXTRACRANIAL ART COMPL BI STUDY Viola Moss APRN.CNP [address] [place] [address] [facility] [address] [place] [address] Referral ID Status Reason Start Date Expiration Date Visits Requested Visits Authorized [id number] Pending Review Auto-Generat ed Referral 12/22/2022 12/22/2023 1 1 [facility] Family History No Family History Records FoundUnknown Family Member Name Dates Details Family Members In General Comments:Breast CA, Emotiona l, HBP, high cholesterol, Parkinson's Status:Active mom and 2 aunts breast ca Status:Active Unknown Family Member Name Dates Details Family Members In General Comments:Breast CA, Emotiona l, HBP, high cholesterol, Parkinson's Status:Active mom and 2 aunts breast ca Status:Active Unknown Family Member Name Dates Details Family Members In General Comments:Breast CA, Emotiona l, HBP, high cholesterol, Parkinson's Status:Active mom and 2 aunts breast ca Status:Active Unknown Family Member Name Dates Details Family Members In General Comments:Breast CA, Emotiona l, HBP, high cholesterol, Parkinson's Status:Active mom and 2 aunts breast ca Status:Active Unknown Family Member Name Dates Details Family Members In General Comments:Breast CA, Emotiona l, HBP, high cholesterol, Parkinson's Status:Active mom and 2 aunts breast ca Status:Active Unknown Family Member Name Dates Details Family Members In General Comments:Breast CA, Emotiona l, HBP, high cholesterol, Parkinson's Status:Active mom and 2 aunts breast ca Status:Active Unknown Family Member Name Dates Details Family Members In General Comments:Breast CA, Emotiona l, HBP, high cholesterol, Parkinson's Status:Active mom and 2 aunts breast ca Status:Active Unknown Family Member Name Dates Details Family Members In General Comments:Breast CA, Emotiona l, HBP, high cholesterol, Parkinson's Status:Active mom and 2 aunts breast ca Status:Active Unknown Family Member Name Dates Details Family Members In General Comments:Breast CA, Emotiona l, HBP, high cholesterol, Parkinson's Status:Active mom and 2 aunts breast ca Status:Active Unknown Family Member Name Dates Details Family Members In General Comments:Breast CA, Emotiona l, HBP, high cholesterol, Parkinson's Status:Active mom and 2 aunts breast ca Status:Active Unknown Family Member Name Dates Details Family Members In General Comments:Breast CA, Emotiona l, HBP, high cholesterol, Parkinson's Status:Active mom and 2 aunts breast ca Status:Active Unknown Family Member Name Dates Details Family Members In General Comments:Breast CA, Emotiona l, HBP, high cholesterol, Parkinson's Status:Active mom and 2 aunts breast ca Status:Active Unknown Family Member Name Dates Details Family Members In General Comments:Breast CA, Emotiona l, HBP, high cholesterol, Parkinson's Status:Active mom and 2 aunts breast ca Status:Active Unknown Family Member Name Dates Details Family Members In General Comments:Breast CA, Emotiona l, HBP, high cholesterol, Parkinson's Status:Active mom and 2 aunts breast ca Status:Active Unknown Family Member Name Dates Details Family Members In General Comments:Breast CA, Emotiona l, HBP, high cholesterol, Parkinson's Status:Active mom and 2 aunts breast ca Status:Active Unknown Family Member Name Dates Details Family Members In General Comments:Breast CA, Emotiona l, HBP, high cholesterol, Parkinson's Status:Active mom and 2 aunts breast ca Status:Active Unknown Family Member Name Dates Details Family Members In General Comments:Breast CA, Emotiona l, HBP, high cholesterol, Parkinson's Status:Active mom and 2 aunts breast ca Status:Active Unknown Family Member Name Dates Details Family Members In General Comments:Breast CA, Emotiona l, HBP, high cholesterol, Parkinson's Status:Active mom and 2 aunts breast ca Status:Active Unknown Family Member Name Dates Details Family Members In General Comments:Breast CA, Emotiona l, HBP, high cholesterol, Parkinson's Status:Active mom and 2 aunts breast ca Status:Active Unknown Family Member Name Dates Details Family Members In General Comments:Breast CA, Emotiona l, HBP, high cholesterol, Parkinson's Status:Active mom and 2 aunts breast ca Status:Active Unknown Family Member Name Dates Details Family Members In General Comments:Breast CA, Emotiona l, HBP, high cholesterol, Parkinson's Status:Active mom and 2 aunts breast ca Status:Active Unknown Family Member Name Dates Details Family Members In General Comments:Breast CA, Emotiona l, HBP, high cholesterol, Parkinson's Status:Active mom and 2 aunts breast ca Status:Active Unknown Family Member Name Dates Details Family Members In General Comments:Breast CA, Emotiona l, HBP, high cholesterol, Parkinson's Status:Active mom and 2 aunts breast ca Status:Active Unknown Family Member Name Dates Details Family Members In General Comments:Breast CA, Emotiona l, HBP, high cholesterol, Parkinson's Status:Active mom and 2 aunts breast ca Status:Active Unknown Family Member Name Dates Details Family Members In General Comments:Breast CA, Emotiona l, HBP, high cholesterol, Parkinson's Status:Active mom and 2 aunts breast ca Status:Active Unknown Family Member Name Dates Details Family Members In General Comments:Breast CA, Emotiona l, HBP, high cholesterol, Parkinson's Status:Active mom and 2 aunts breast ca Status:Active Unknown Family Member Name Dates Details Family Members In General Comments:Breast CA, Emotiona l, HBP, high cholesterol, Parkinson's Status:Active mom and 2 aunts breast ca Status:Active Unknown Family Member Name Dates Details Family Members In General Comments:Breast CA, Emotiona l, HBP, high cholesterol, Parkinson's Status:Active mom and 2 aunts breast ca Status:Active Unknown Family Member Name Dates Details Family Members In General Comments:Breast CA, Emotiona l, HBP, high cholesterol, Parkinson's Status:Active mom and 2 aunts breast ca Status:Active Unknown Family Member Name Dates Details Family Members In General Comments:Breast CA, Emotiona l, HBP, high cholesterol, Parkinson's Status:Active mom and 2 aunts breast ca Status:Active Unknown Family Member Name Dates Details Family Members In General Comments:Breast CA, Emotiona l, HBP, high cholesterol, Parkinson's Status:Active mom and 2 aunts breast ca Status:Active Unknown Family Member Name Dates Details Family Members In General Comments:Breast CA, Emotiona l, HBP, high cholesterol, Parkinson's Status:Active mom and 2 aunts breast ca Status:Active Unknown Family Member Name Dates Details Family Members In General Comments:Breast CA, Emotiona l, HBP, high cholesterol, Parkinson's Status:Active mom and 2 aunts breast ca Status:Active Unknown Family Member Name Dates Details Family Members In General Comments:Breast CA, Emotiona l, HBP, high cholesterol, Parkinson's Status:Active mom and 2 aunts breast ca Status:Active Instructions Name Dates Details Snores : How to access healt h information online Indication:Snores Snores : How to access healt h information online - Detail Indication:Snores Snores : Patient Instruction s Indication:Snores BMI 34.0-34.9,adult : How to access health information online Indication:BMI 34.0-34.9,adult BMI 34.0-34.9,adult : How to access health information online - Detail Indication:BMI 34.0-34.9,adult BMI 34.0-34.9,adult : Patien t Instructions Indication:BMI 34.0-34.9,adult Non-smoker : How to access h ealth information online Indication:Non-smoker Non-smoker : How to access h ealth information online - Detail Indication:Non-smoker Non-smoker : Patient Instruc tions Indication:Non-smoker Left hip pain : How to acces s health information online Indication:Left hip pain Left hip pain : How to acces s health information online - Detail Indication:Left hip pain Left hip pain : Patient Inst ructions Indication:Left hip pain Medicare welcome exam : How to access health information online Indication:Medicare welcome exam Medicare welcome exam : How to access health information online - Detail Indication:Medicare welcome exam Medicare welcome exam : Sarai ent Instructions Indication:Medicare welcome exam Vomiting and diarrhea : How to access health information online Indication:Vomiting and diarrhea Vomiting and diarrhea : How to access health information online - Detail Indication:Vomiting and diarrhea Vomiting and diarrhea : Sarai ent Instructions Indication:Vomiting and diarrhea Heart disease, hypertensive, malignant, without heart failure : Patient Instructions Indication:Heart disease, hypertensive, malignant, without heart failure DIARRHEA (Renamed from D (di arrhea)) : How to access health information online Indication:DIARRHEA (Renamed from D (diarrhea)) DIARRHEA (Renamed from D (di arrhea)) : How to access health information online - Detail Indication:DIARRHEA (Renamed from D (diarrhea)) DIARRHEA (Renamed from D (di arrhea)) : Patient Instructions Indication:DIARRHEA (Renamed from D (diarrhea)) Blood pressure check : Patie nt Instructions Indication:Blood pressure check Pre-operative examination : Patient Instructions Indication:Pre-operative examination Hypercalcemia : Patient Inst ructions Indication:Hypercalcemia Myalgia : Patient Instructio ns Indication:Myalgia Acute sinusitis, unspecified : Patient Instructions Indication:Acute sinusitis, unspecified Name Dates Details BMI 35.0-35.9,adult : How to access health information online Indication:BMI 35.0-35.9,adult BMI 35.0-35.9,adult : How to access health information online - Detail Indication:BMI 35.0-35.9,adult BMI 35.0-35.9,adult : Patien t Instructions Indication:BMI 35.0-35.9,adult Snores : How to access healt h information online Indication:Snores Snores : How to access healt h information online - Detail Indication:Snores Snores : Patient Instruction s Indication:Snores BMI 34.0-34.9,adult : How to access health information online Indication:BMI 34.0-34.9,adult BMI 34.0-34.9,adult : How to access health information online - Detail Indication:BMI 34.0-34.9,adult BMI 34.0-34.9,adult : Patien t Instructions Indication:BMI 34.0-34.9,adult Non-smoker : How to access h ealth information online Indication:Non-smoker Non-smoker : How to access h ealth information online - Detail Indication:Non-smoker Non-smoker : Patient Instruc tions Indication:Non-smoker Left hip pain : How to acces s health information online Indication:Left hip pain Left hip pain : How to acces s health information online - Detail Indication:Left hip pain Left hip pain : Patient Inst ructions Indication:Left hip pain Medicare welcome exam : How to access health information online Indication:Medicare welcome exam Medicare welcome exam : How to access health information online - Detail Indication:Medicare welcome exam Medicare welcome exam : Sarai ent Instructions Indication:Medicare welcome exam Vomiting and diarrhea : How to access health information online Indication:Vomiting and diarrhea Vomiting and diarrhea : How to access health information online - Detail Indication:Vomiting and diarrhea Vomiting and diarrhea : Sarai ent Instructions Indication:Vomiting and diarrhea Heart disease, hypertensive, malignant, without heart failure : Patient Instructions Indication:Heart disease, hypertensive, malignant, without heart failure DIARRHEA (Renamed from D (di arrhea)) : How to access health information online Indication:DIARRHEA (Renamed from D (diarrhea)) DIARRHEA (Renamed from D (di arrhea)) : How to access health information online - Detail Indication:DIARRHEA (Renamed from D (diarrhea)) DIARRHEA (Renamed from D (di arrhea)) : Patient Instructions Indication:DIARRHEA (Renamed from D (diarrhea)) Blood pressure check : Patie nt Instructions Indication:Blood pressure check Pre-operative examination : Patient Instructions Indication:Pre-operative examination Hypercalcemia : Patient Inst ructions Indication:Hypercalcemia Myalgia : Patient Instructio ns Indication:Myalgia Acute sinusitis, unspecified : Patient Instructions Indication:Acute sinusitis, unspecified Name Dates Details How to access health informa tion online Indication:BMI 35.0-35.9,adult Start:25-Jan-2019 Instruction Type:Patient Education How to access health informa tion online - Detail Indication:BMI 35.0-35.9,adult Start:25-Jan-2019 Instruction Type:Patient Education Patient Instructions Indication:BMI 35.0-35.9,adult Start:25-Jan-2019 Instruction Type:Provider Instructions for Treatment How to access health informa tion online Indication:Snores Start:21-Aug-2017 Instruction Type:Patient Education How to access health informa tion online - Detail Indication:Snores Start:21-Aug-2017 Instruction Type:Patient Education Patient Instructions Indication:Snores Start:21-Aug-2017 Instruction Type:Provider Instructions for Treatment How to access health informa tion online Indication:Snores Start:27-Jul-2017 Instruction Type:Patient Education How to access health informa tion online - Detail Indication:Snores Start:27-Jul-2017 Instruction Type:Patient Education Patient Instructions Indication:Snores Start:27-Jul-2017 Instruction Type:Provider Instructions for Treatment How to access health informa tion online Indication:BMI 34.0-34.9,adult Start:13-Nov-2016 Instruction Type:Patient Education How to access health informa tion online - Detail Indication:BMI 34.0-34.9,adult Start:13-Nov-2016 Instruction Type:Patient Education Patient Instructions Indication:BMI 34.0-34.9,adult Start:13-Nov-2016 Instruction Type:Provider Instructions for Treatment How to access health informa tion online Indication:Non-smoker Start:20-Oct-2016 Instruction Type:Patient Education How to access health informa tion online - Detail Indication:Non-smoker Start:20-Oct-2016 Instruction Type:Patient Education Patient Instructions Indication:Non-smoker Start:20-Oct-2016 Instruction Type:Provider Instructions for Treatment How to access health informa tion online Indication:Left hip pain Start:07-Aug-2016 Instruction Type:Patient Education How to access health informa tion online - Detail Indication:Left hip pain Start:07-Aug-2016 Instruction Type:Patient Education Patient Instructions Indication:Left hip pain Start:07-Aug-2016 Instruction Type:Provider Instructions for Treatment How to access health informa tion online Indication:Medicare welcome exam Start:13-May-2016 Instruction Type:Patient Education How to access health informa tion online - Detail Indication:Medicare welcome exam Start:13-May-2016 Instruction Type:Patient Education Patient Instructions Indication:Medicare welcome exam Start:13-May-2016 Instruction Type:Provider Instructions for Treatment How to access health informa tion online Indication:Vomiting and diarrhea Start:05-Mar-2016 Instruction Type:Patient Education How to access health informa tion online - Detail Indication:Vomiting and diarrhea Start:05-Mar-2016 Instruction Type:Patient Education Patient Instructions Indication:Vomiting and diarrhea Start:05-Mar-2016 Instruction Type:Provider Instructions for Treatment Patient Instructions Indication:Heart disease, hypertensive, malignant, without heart failure Start:14-May-2015 Instruction Type:Provider Instructions for Treatment How to access health informa [employer] online Indication:DIARRHEA (Renamed from D (diarrhea)) Start:04-Apr-2015 Instruction Type:Patient Education How to access health informa tion online - Detail Indication:DIARRHEA (Renamed from D (diarrhea)) Start:04-Apr-2015 Instruction Type:Patient Education Patient Instructions Indication:DIARRHEA (Renamed from D (diarrhea)) Start:04-Apr-2015 Instruction Type:Provider Instructions for Treatment Patient Instructions Indication:Blood pressure check Start:25-Apr-2013 Instruction Type:Provider Instructions for Treatment Patient Instructions Indication:Pre-operative examination Start:18-Apr-2013 Instruction Type:Provider Instructions for Treatment Patient Instructions Indication:Hypercalcemia Start:17-Jan-2013 Instruction Type:Provider Instructions for Treatment Patient Instructions Indication:Pre-operative examination Start:24-Dec-2012 Instruction Type:Provider Instructions for Treatment Patient Instructions Indication:Myalgia Start:27-Sep-2012 Instruction Type:Provider Instructions for Treatment Patient Instructions Indication:Acute sinusitis, unspecified Start:08-Sep-2012 Instruction Type:Provider Instructions for Treatment Name Dates Details How to access health informa [employer] online Indication:Nonsmoker Start:13-Jul-2019 Instruction Type:Patient Education How to access health informa tion online - Detail Indication:Nonsmoker Start:13-Jul-2019 Instruction Type:Patient Education Patient Instructions Indication:Nonsmoker Start:13-Jul-2019 Instruction Type:Provider Instructions for Treatment How to access health informa tion online Indication:BMI 35.0-35.9,adult Start:25-Jan-2019 Instruction Type:Patient Education How to access health informa tion online - Detail Indication:BMI 35.0-35.9,adult Start:25-Jan-2019 Instruction Type:Patient Education Patient Instructions Indication:BMI 35.0-35.9,adult Start:25-Jan-2019 Instruction Type:Provider Instructions for Treatment How to access health informa tion online Indication:Snores Start:21-Aug-2017 Instruction Type:Patient Education How to access health informa tion online - Detail Indication:Snores Start:21-Aug-2017 Instruction Type:Patient Education Patient Instructions Indication:Snores Start:21-Aug-2017 Instruction Type:Provider Instructions for Treatment How to access health informa tion online Indication:Snores Start:27-Jul-2017 Instruction Type:Patient Education How to access health informa tion online - Detail Indication:Snores Start:27-Jul-2017 Instruction Type:Patient Education Patient Instructions Indication:Snores Start:27-Jul-2017 Instruction Type:Provider Instructions for Treatment How to access health informa tion online Indication:BMI 34.0-34.9,adult Start:13-Nov-2016 Instruction Type:Patient Education How to access health informa tion online - Detail Indication:BMI 34.0-34.9,adult Start:13-Nov-2016 Instruction Type:Patient Education Patient Instructions Indication:BMI 34.0-34.9,adult Start:13-Nov-2016 Instruction Type:Provider Instructions for Treatment How to access health informa tion online Indication:Non-smoker Start:20-Oct-2016 Instruction Type:Patient Education How to access health informa tion online - Detail Indication:Non-smoker Start:20-Oct-2016 Instruction Type:Patient Education Patient Instructions Indication:Non-smoker Start:20-Oct-2016 Instruction Type:Provider Instructions for Treatment How to access health informa tion online Indication:Left hip pain Start:07-Aug-2016 Instruction Type:Patient Education How to access health informa tion online - Detail Indication:Left hip pain Start:07-Aug-2016 Instruction Type:Patient Education Patient Instructions Indication:Left hip pain Start:07-Aug-2016 Instruction Type:Provider Instructions for Treatment How to access health informa tion online Indication:Medicare welcome exam Start:13-May-2016 Instruction Type:Patient Education How to access health informa tion online - Detail Indication:Medicare welcome exam Start:13-May-2016 Instruction Type:Patient Education Patient Instructions Indication:Medicare welcome exam Start:13-May-2016 Instruction Type:Provider Instructions for Treatment How to access health informa tion online Indication:Vomiting and diarrhea Start:05-Mar-2016 Instruction Type:Patient Education How to access health informa tion online - Detail Indication:Vomiting and diarrhea Start:05-Mar-2016 Instruction Type:Patient Education Patient Instructions Indication:Vomiting and diarrhea Start:05-Mar-2016 Instruction Type:Provider Instructions for Treatment Patient Instructions Indication:Heart disease, hypertensive, malignant, without heart failure Start:14-May-2015 Instruction Type:Provider Instructions for Treatment How to access health informa tion online Indication:DIARRHEA (Renamed from D (diarrhea)) Start:04-Apr-2015 Instruction Type:Patient Education How to access health informa tion online - Detail Indication:DIARRHEA (Renamed from D (diarrhea)) Start:04-Apr-2015 Instruction Type:Patient Education Patient Instructions Indication:DIARRHEA (Renamed from D (diarrhea)) Start:04-Apr-2015 Instruction Type:Provider Instructions for Treatment Patient Instructions Indication:Blood pressure check Start:25-Apr-2013 Instruction Type:Provider Instructions for Treatment Patient Instructions Indication:Pre-operative examination Start:18-Apr-2013 Instruction Type:Provider Instructions for Treatment Patient Instructions Indication:Hypercalcemia Start:17-Jan-2013 Instruction Type:Provider Instructions for Treatment Patient Instructions Indication:Pre-operative examination Start:24-Dec-2012 Instruction Type:Provider Instructions for Treatment Patient Instructions Indication:Myalgia Start:27-Sep-2012 Instruction Type:Provider Instructions for Treatment Patient Instructions Indication:Acute sinusitis, unspecified Start:08-Sep-2012 Instruction Type:Provider Instructions for Treatment Name Dates Details How to access health informa tion online Indication:Nonsmoker Start:13-Jul-2019 Instruction Type:Patient Education How to access health informa tion online - Detail Indication:Nonsmoker Start:13-Jul-2019 Instruction Type:Patient Education Patient Instructions Indication:Nonsmoker Start:13-Jul-2019 Instruction Type:Provider Instructions for Treatment How to access health informa tion online Indication:BMI 35.0-35.9,adult Start:25-Jan-2019 Instruction Type:Patient Education How to access health informa tion online - Detail Indication:BMI 35.0-35.9,adult Start:25-Jan-2019 Instruction Type:Patient Education Patient Instructions Indication:BMI 35.0-35.9,adult Start:25-Jan-2019 Instruction Type:Provider Instructions for Treatment How to access health informa tion online Indication:Snores Start:21-Aug-2017 Instruction Type:Patient Education How to access health informa tion online - Detail Indication:Snores Start:21-Aug-2017 Instruction Type:Patient Education Patient Instructions Indication:Snores Start:21-Aug-2017 Instruction Type:Provider Instructions for Treatment How to access health informa tion online Indication:Snores Start:27-Jul-2017 Instruction Type:Patient Education How to access health informa tion online - Detail Indication:Snores Start:27-Jul-2017 Instruction Type:Patient Education Patient Instructions Indication:Snores Start:27-Jul-2017 Instruction Type:Provider Instructions for Treatment How to access health informa tion online Indication:BMI 34.0-34.9,adult Start:13-Nov-2016 Instruction Type:Patient Education How to access health informa tion online - Detail Indication:BMI 34.0-34.9,adult Start:13-Nov-2016 Instruction Type:Patient Education Patient Instructions Indication:BMI 34.0-34.9,adult Start:13-Nov-2016 Instruction Type:Provider Instructions for Treatment How to access health informa tion online Indication:Non-smoker Start:20-Oct-2016 Instruction Type:Patient Education How to access health informa tion online - Detail Indication:Non-smoker Start:20-Oct-2016 Instruction Type:Patient Education Patient Instructions Indication:Non-smoker Start:20-Oct-2016 Instruction Type:Provider Instructions for Treatment How to access health informa tion online Indication:Left hip pain Start:07-Aug-2016 Instruction Type:Patient Education How to access health informa tion online - Detail Indication:Left hip pain Start:07-Aug-2016 Instruction Type:Patient Education Patient Instructions Indication:Left hip pain Start:07-Aug-2016 Instruction Type:Provider Instructions for Treatment How to access health informa tion online Indication:Medicare welcome exam Start:13-May-2016 Instruction Type:Patient Education How to access health informa tion online - Detail Indication:Medicare welcome exam Start:13-May-2016 Instruction Type:Patient Education Patient Instructions Indication:Medicare welcome exam Start:13-May-2016 Instruction Type:Provider Instructions for Treatment How to access health informa tion online Indication:Vomiting and diarrhea Start:05-Mar-2016 Instruction Type:Patient Education How to access health informa tion online - Detail Indication:Vomiting and diarrhea Start:05-Mar-2016 Instruction Type:Patient Education Patient Instructions Indication:Vomiting and diarrhea Start:05-Mar-2016 Instruction Type:Provider Instructions for Treatment Patient Instructions Indication:Heart disease, hypertensive, malignant, without heart failure Start:14-May-2015 Instruction Type:Provider Instructions for Treatment How to access health informa tion online Indication:DIARRHEA (Renamed from D (diarrhea)) Start:04-Apr-2015 Instruction Type:Patient Education How to access health informa tion online - Detail Indication:DIARRHEA (Renamed from D (diarrhea)) Start:04-Apr-2015 Instruction Type:Patient Education Patient Instructions Indication:DIARRHEA (Renamed from D (diarrhea)) Start:04-Apr-2015 Instruction Type:Provider Instructions for Treatment Patient Instructions Indication:Blood pressure check Start:25-Apr-2013 Instruction Type:Provider Instructions for Treatment Patient Instructions Indication:Pre-operative examination Start:18-Apr-2013 Instruction Type:Provider Instructions for Treatment Patient Instructions Indication:Hypercalcemia Start:17-Jan-2013 Instruction Type:Provider Instructions for Treatment Patient Instructions Indication:Pre-operative examination Start:24-Dec-2012 Instruction Type:Provider Instructions for Treatment Patient Instructions Indication:Myalgia Start:27-Sep-2012 Instruction Type:Provider Instructions for Treatment Patient Instructions Indication:Acute sinusitis, unspecified Start:08-Sep-2012 Instruction Type:Provider Instructions for Treatment Name Dates Details How to access health informa tion online Indication:Nonsmoker Start:13-Jul-2019 Instruction Type:Patient Education How to access health informa tion online - Detail Indication:Nonsmoker Start:13-Jul-2019 Instruction Type:Patient Education Patient Instructions Indication:Nonsmoker Start:13-Jul-2019 Instruction Type:Provider Instructions for Treatment How to access health informa tion online Indication:BMI 35.0-35.9,adult Start:25-Jan-2019 Instruction Type:Patient Education How to access health informa tion online - Detail Indication:BMI 35.0-35.9,adult Start:25-Jan-2019 Instruction Type:Patient Education Patient Instructions Indication:BMI 35.0-35.9,adult Start:25-Jan-2019 Instruction Type:Provider Instructions for Treatment How to access health informa tion online Indication:Snores Start:21-Aug-2017 Instruction Type:Patient Education How to access health informa tion online - Detail Indication:Snores Start:21-Aug-2017 Instruction Type:Patient Education Patient Instructions Indication:Snores Start:21-Aug-2017 Instruction Type:Provider Instructions for Treatment How to access health informa tion online Indication:Snores Start:27-Jul-2017 Instruction Type:Patient Education How to access health informa tion online - Detail Indication:Snores Start:27-Jul-2017 Instruction Type:Patient Education Patient Instructions Indication:Snores Start:27-Jul-2017 Instruction Type:Provider Instructions for Treatment How to access health informa tion online Indication:BMI 34.0-34.9,adult Start:13-Nov-2016 Instruction Type:Patient Education How to access health informa tion online - Detail Indication:BMI 34.0-34.9,adult Start:13-Nov-2016 Instruction Type:Patient Education Patient Instructions Indication:BMI 34.0-34.9,adult Start:13-Nov-2016 Instruction Type:Provider Instructions for Treatment How to access health informa tion online Indication:Non-smoker Start:20-Oct-2016 Instruction Type:Patient Education How to access health informa tion online - Detail Indication:Non-smoker Start:20-Oct-2016 Instruction Type:Patient Education Patient Instructions Indication:Non-smoker Start:20-Oct-2016 Instruction Type:Provider Instructions for Treatment How to access health informa tion online Indication:Left hip pain Start:07-Aug-2016 Instruction Type:Patient Education How to access health informa tion online - Detail Indication:Left hip pain Start:07-Aug-2016 Instruction Type:Patient Education Patient Instructions Indication:Left hip pain Start:07-Aug-2016 Instruction Type:Provider Instructions for Treatment How to access health informa tion online Indication:Medicare welcome exam Start:13-May-2016 Instruction Type:Patient Education How to access health informa tion online - Detail Indication:Medicare welcome exam Start:13-May-2016 Instruction Type:Patient Education Patient Instructions Indication:Medicare welcome exam Start:13-May-2016 Instruction Type:Provider Instructions for Treatment How to access health informa tion online Indication:Vomiting and diarrhea Start:05-Mar-2016 Instruction Type:Patient Education How to access health informa tion online - Detail Indication:Vomiting and diarrhea Start:05-Mar-2016 Instruction Type:Patient Education Patient Instructions Indication:Vomiting and diarrhea Start:05-Mar-2016 Instruction Type:Provider Instructions for Treatment Patient Instructions Indication:Heart disease, hypertensive, malignant, without heart failure Start:14-May-2015 Instruction Type:Provider Instructions for Treatment How to access health informa tion online Indication:DIARRHEA (Renamed from D (diarrhea)) Start:04-Apr-2015 Instruction Type:Patient Education How to access health informa tion online - Detail Indication:DIARRHEA (Renamed from D (diarrhea)) Start:04-Apr-2015 Instruction Type:Patient Education Patient Instructions Indication:DIARRHEA (Renamed from D (diarrhea)) Start:04-Apr-2015 Instruction Type:Provider Instructions for Treatment Patient Instructions Indication:Blood pressure check Start:25-Apr-2013 Instruction Type:Provider Instructions for Treatment Patient Instructions Indication:Pre-operative examination Start:18-Apr-2013 Instruction Type:Provider Instructions for Treatment Patient Instructions Indication:Hypercalcemia Start:17-Jan-2013 Instruction Type:Provider Instructions for Treatment Patient Instructions Indication:Pre-operative examination Start:24-Dec-2012 Instruction Type:Provider Instructions for Treatment Patient Instructions Indication:Myalgia Start:27-Sep-2012 Instruction Type:Provider Instructions for Treatment Patient Instructions Indication:Acute sinusitis, unspecified Start:08-Sep-2012 Instruction Type:Provider Instructions for Treatment Name Dates Details How to access health informa tion online Indication:Nonsmoker Start:13-Jul-2019 Instruction Type:Patient Education How to access health informa tion online - Detail Indication:Nonsmoker Start:13-Jul-2019 Instruction Type:Patient Education Patient Instructions Indication:Nonsmoker Start:13-Jul-2019 Instruction Type:Provider Instructions for Treatment How to access health informa tion online Indication:BMI 35.0-35.9,adult Start:25-Jan-2019 Instruction Type:Patient Education How to access health informa tion online - Detail Indication:BMI 35.0-35.9,adult Start:25-Jan-2019 Instruction Type:Patient Education Patient Instructions Indication:BMI 35.0-35.9,adult Start:25-Jan-2019 Instruction Type:Provider Instructions for Treatment How to access health informa tion online Indication:Snores Start:21-Aug-2017 Instruction Type:Patient Education How to access health informa tion online - Detail Indication:Snores Start:21-Aug-2017 Instruction Type:Patient Education Patient Instructions Indication:Snores Start:21-Aug-2017 Instruction Type:Provider Instructions for Treatment How to access health informa tion online Indication:Snores Start:27-Jul-2017 Instruction Type:Patient Education How to access health informa tion online - Detail Indication:Snores Start:27-Jul-2017 Instruction Type:Patient Education Patient Instructions Indication:Snores Start:27-Jul-2017 Instruction Type:Provider Instructions for Treatment How to access health informa tion online Indication:BMI 34.0-34.9,adult Start:13-Nov-2016 Instruction Type:Patient Education How to access health informa tion online - Detail Indication:BMI 34.0-34.9,adult Start:13-Nov-2016 Instruction Type:Patient Education Patient Instructions Indication:BMI 34.0-34.9,adult Start:13-Nov-2016 Instruction Type:Provider Instructions for Treatment How to access health informa tion online Indication:Non-smoker Start:20-Oct-2016 Instruction Type:Patient Education How to access health informa tion online - Detail Indication:Non-smoker Start:20-Oct-2016 Instruction Type:Patient Education Patient Instructions Indication:Non-smoker Start:20-Oct-2016 Instruction Type:Provider Instructions for Treatment How to access health informa tion online Indication:Left hip pain Start:07-Aug-2016 Instruction Type:Patient Education How to access health informa tion online - Detail Indication:Left hip pain Start:07-Aug-2016 Instruction Type:Patient Education Patient Instructions Indication:Left hip pain Start:07-Aug-2016 Instruction Type:Provider Instructions for Treatment How to access health informa tion online Indication:Medicare welcome exam Start:13-May-2016 Instruction Type:Patient Education How to access health informa tion online - Detail Indication:Medicare welcome exam Start:13-May-2016 Instruction Type:Patient Education Patient Instructions Indication:Medicare welcome exam Start:13-May-2016 Instruction Type:Provider Instructions for Treatment How to access health informa tion online Indication:Vomiting and diarrhea Start:05-Mar-2016 Instruction Type:Patient Education How to access health informa tion online - Detail Indication:Vomiting and diarrhea Start:05-Mar-2016 Instruction Type:Patient Education Patient Instructions Indication:Vomiting and diarrhea Start:05-Mar-2016 Instruction Type:Provider Instructions for Treatment Patient Instructions Indication:Heart disease, hypertensive, malignant, without heart failure Start:14-May-2015 Instruction Type:Provider Instructions for Treatment How to access health informa tion online Indication:DIARRHEA (Renamed from D (diarrhea)) Start:04-Apr-2015 Instruction Type:Patient Education How to access health informa tion online - Detail Indication:DIARRHEA (Renamed from D (diarrhea)) Start:04-Apr-2015 Instruction Type:Patient Education Patient Instructions Indication:DIARRHEA (Renamed from D (diarrhea)) Start:04-Apr-2015 Instruction Type:Provider Instructions for Treatment Patient Instructions Indication:Blood pressure check Start:25-Apr-2013 Instruction Type:Provider Instructions for Treatment Patient Instructions Indication:Pre-operative examination Start:18-Apr-2013 Instruction Type:Provider Instructions for Treatment Patient Instructions Indication:Hypercalcemia Start:17-Jan-2013 Instruction Type:Provider Instructions for Treatment Patient Instructions Indication:Pre-operative examination Start:24-Dec-2012 Instruction Type:Provider Instructions for Treatment Patient Instructions Indication:Myalgia Start:27-Sep-2012 Instruction Type:Provider Instructions for Treatment Patient Instructions Indication:Acute sinusitis, unspecified Start:08-Sep-2012 Instruction Type:Provider Instructions for Treatment Name Dates Details How to access health informa tion online Indication:Unspecified Diagnosis Start:15-Aug-2019 Instruction Type:Patient Education How to access health informa tion online - Detail Indication:Unspecified Diagnosis Start:15-Aug-2019 Instruction Type:Patient Education Patient Instructions Indication:Unspecified Diagnosis Start:15-Aug-2019 Instruction Type:Provider Instructions for Treatment How to access health informa tion online Indication:Nonsmoker Start:13-Jul-2019 Instruction Type:Patient Education How to access health informa tion online - Detail Indication:Nonsmoker Start:13-Jul-2019 Instruction Type:Patient Education Patient Instructions Indication:Nonsmoker Start:13-Jul-2019 Instruction Type:Provider Instructions for Treatment How to access health informa tion online Indication:BMI 35.0-35.9,adult Start:25-Jan-2019 Instruction Type:Patient Education How to access health informa tion online - Detail Indication:BMI 35.0-35.9,adult Start:25-Jan-2019 Instruction Type:Patient Education Patient Instructions Indication:BMI 35.0-35.9,adult Start:25-Jan-2019 Instruction Type:Provider Instructions for Treatment How to access health informa tion online Indication:Snores Start:21-Aug-2017 Instruction Type:Patient Education How to access health informa tion online - Detail Indication:Snores Start:21-Aug-2017 Instruction Type:Patient Education Patient Instructions Indication:Snores Start:21-Aug-2017 Instruction Type:Provider Instructions for Treatment How to access health informa tion online Indication:Snores Start:27-Jul-2017 Instruction Type:Patient Education How to access health informa tion online - Detail Indication:Snores Start:27-Jul-2017 Instruction Type:Patient Education Patient Instructions Indication:Snores Start:27-Jul-2017 Instruction Type:Provider Instructions for Treatment How to access health informa tion online Indication:BMI 34.0-34.9,adult Start:13-Nov-2016 Instruction Type:Patient Education How to access health informa tion online - Detail Indication:BMI 34.0-34.9,adult Start:13-Nov-2016 Instruction Type:Patient Education Patient Instructions Indication:BMI 34.0-34.9,adult Start:13-Nov-2016 Instruction Type:Provider Instructions for Treatment How to access health informa tion online Indication:Non-smoker Start:20-Oct-2016 Instruction Type:Patient Education How to access health informa tion online - Detail Indication:Non-smoker Start:20-Oct-2016 Instruction Type:Patient Education Patient Instructions Indication:Non-smoker Start:20-Oct-2016 Instruction Type:Provider Instructions for Treatment How to access health informa tion online Indication:Left hip pain Start:07-Aug-2016 Instruction Type:Patient Education How to access health informa tion online - Detail Indication:Left hip pain Start:07-Aug-2016 Instruction Type:Patient Education Patient Instructions Indication:Left hip pain Start:07-Aug-2016 Instruction Type:Provider Instructions for Treatment How to access health informa tion online Indication:Medicare welcome exam Start:13-May-2016 Instruction Type:Patient Education How to access health informa tion online - Detail Indication:Medicare welcome exam Start:13-May-2016 Instruction Type:Patient Education Patient Instructions Indication:Medicare welcome exam Start:13-May-2016 Instruction Type:Provider Instructions for Treatment How to access health informa tion online Indication:Vomiting and diarrhea Start:05-Mar-2016 Instruction Type:Patient Education How to access health informa tion online - Detail Indication:Vomiting and diarrhea Start:05-Mar-2016 Instruction Type:Patient Education Patient Instructions Indication:Vomiting and diarrhea Start:05-Mar-2016 Instruction Type:Provider Instructions for Treatment Patient Instructions Indication:Heart disease, hypertensive, malignant, without heart failure Start:14-May-2015 Instruction Type:Provider Instructions for Treatment How to access health informa tion online Indication:DIARRHEA (Renamed from D (diarrhea)) Start:04-Apr-2015 Instruction Type:Patient Education How to access health informa tion online - Detail Indication:DIARRHEA (Renamed from D (diarrhea)) Start:04-Apr-2015 Instruction Type:Patient Education Patient Instructions Indication:DIARRHEA (Renamed from D (diarrhea)) Start:04-Apr-2015 Instruction Type:Provider Instructions for Treatment Patient Instructions Indication:Blood pressure check Start:25-Apr-2013 Instruction Type:Provider Instructions for Treatment Patient Instructions Indication:Pre-operative examination Start:18-Apr-2013 Instruction Type:Provider Instructions for Treatment Patient Instructions Indication:Hypercalcemia Start:17-Jan-2013 Instruction Type:Provider Instructions for Treatment Patient Instructions Indication:Pre-operative examination Start:24-Dec-2012 Instruction Type:Provider Instructions for Treatment Patient Instructions Indication:Myalgia Start:27-Sep-2012 Instruction Type:Provider Instructions for Treatment Patient Instructions Indication:Acute sinusitis, unspecified Start:08-Sep-2012 Instruction Type:Provider Instructions for Treatment Name Dates Details How to access health informa tion online Indication:Unspecified Diagnosis Start:15-Aug-2019 Instruction Type:Patient Education How to access health informa tion online - Detail Indication:Unspecified Diagnosis Start:15-Aug-2019 Instruction Type:Patient Education Patient Instructions Indication:Unspecified Diagnosis Start:15-Aug-2019 Instruction Type:Provider Instructions for Treatment How to access health informa tion online Indication:Nonsmoker Start:13-Jul-2019 Instruction Type:Patient Education How to access health informa tion online - Detail Indication:Nonsmoker Start:13-Jul-2019 Instruction Type:Patient Education Patient Instructions Indication:Nonsmoker Start:13-Jul-2019 Instruction Type:Provider Instructions for Treatment How to access health informa tion online Indication:BMI 35.0-35.9,adult Start:25-Jan-2019 Instruction Type:Patient Education How to access health informa tion online - Detail Indication:BMI 35.0-35.9,adult Start:25-Jan-2019 Instruction Type:Patient Education Patient Instructions Indication:BMI 35.0-35.9,adult Start:25-Jan-2019 Instruction Type:Provider Instructions for Treatment How to access health informa tion online Indication:Snores Start:21-Aug-2017 Instruction Type:Patient Education How to access health informa tion online - Detail Indication:Snores Start:21-Aug-2017 Instruction Type:Patient Education Patient Instructions Indication:Snores Start:21-Aug-2017 Instruction Type:Provider Instructions for Treatment How to access health informa tion online Indication:Snores Start:27-Jul-2017 Instruction Type:Patient Education How to access health informa tion online - Detail Indication:Snores Start:27-Jul-2017 Instruction Type:Patient Education Patient Instructions Indication:Snores Start:27-Jul-2017 Instruction Type:Provider Instructions for Treatment How to access health informa tion online Indication:BMI 34.0-34.9,adult Start:13-Nov-2016 Instruction Type:Patient Education How to access health informa tion online - Detail Indication:BMI 34.0-34.9,adult Start:13-Nov-2016 Instruction Type:Patient Education Patient Instructions Indication:BMI 34.0-34.9,adult Start:13-Nov-2016 Instruction Type:Provider Instructions for Treatment How to access health informa tion online Indication:Non-smoker Start:20-Oct-2016 Instruction Type:Patient Education How to access health informa tion online - Detail Indication:Non-smoker Start:20-Oct-2016 Instruction Type:Patient Education Patient Instructions Indication:Non-smoker Start:20-Oct-2016 Instruction Type:Provider Instructions for Treatment How to access health informa tion online Indication:Left hip pain Start:07-Aug-2016 Instruction Type:Patient Education How to access health informa tion online - Detail Indication:Left hip pain Start:07-Aug-2016 Instruction Type:Patient Education Patient Instructions Indication:Left hip pain Start:07-Aug-2016 Instruction Type:Provider Instructions for Treatment How to access health informa tion online Indication:Medicare welcome exam Start:13-May-2016 Instruction Type:Patient Education How to access health informa tion online - Detail Indication:Medicare welcome exam Start:13-May-2016 Instruction Type:Patient Education Patient Instructions Indication:Medicare welcome exam Start:13-May-2016 Instruction Type:Provider Instructions for Treatment How to access health informa tion online Indication:Vomiting and diarrhea Start:05-Mar-2016 Instruction Type:Patient Education How to access health informa tion online - Detail Indication:Vomiting and diarrhea Start:05-Mar-2016 Instruction Type:Patient Education Patient Instructions Indication:Vomiting and diarrhea Start:05-Mar-2016 Instruction Type:Provider Instructions for Treatment Patient Instructions Indication:Heart disease, hypertensive, malignant, without heart failure Start:14-May-2015 Instruction Type:Provider Instructions for Treatment How to access health informa tion online Indication:DIARRHEA (Renamed from D (diarrhea)) Start:04-Apr-2015 Instruction Type:Patient Education How to access health informa tion online - Detail Indication:DIARRHEA (Renamed from D (diarrhea)) Start:04-Apr-2015 Instruction Type:Patient Education Patient Instructions Indication:DIARRHEA (Renamed from D (diarrhea)) Start:04-Apr-2015 Instruction Type:Provider Instructions for Treatment Patient Instructions Indication:Blood pressure check Start:25-Apr-2013 Instruction Type:Provider Instructions for Treatment Patient Instructions Indication:Pre-operative examination Start:18-Apr-2013 Instruction Type:Provider Instructions for Treatment Patient Instructions Indication:Hypercalcemia Start:17-Jan-2013 Instruction Type:Provider Instructions for Treatment Patient Instructions Indication:Pre-operative examination Start:24-Dec-2012 Instruction Type:Provider Instructions for Treatment Patient Instructions Indication:Myalgia Start:27-Sep-2012 Instruction Type:Provider Instructions for Treatment Patient Instructions Indication:Acute sinusitis, unspecified Start:08-Sep-2012 Instruction Type:Provider Instructions for Treatment Name Dates Details How to access health informa tion online Indication:Unspecified Diagnosis Start:15-Aug-2019 Instruction Type:Patient Education How to access health informa tion online - Detail Indication:Unspecified Diagnosis Start:15-Aug-2019 Instruction Type:Patient Education Patient Instructions Indication:Unspecified Diagnosis Start:15-Aug-2019 Instruction Type:Provider Instructions for Treatment How to access health informa tion online Indication:Nonsmoker Start:13-Jul-2019 Instruction Type:Patient Education How to access health informa tion online - Detail Indication:Nonsmoker Start:13-Jul-2019 Instruction Type:Patient Education Patient Instructions Indication:Nonsmoker Start:13-Jul-2019 Instruction Type:Provider Instructions for Treatment How to access health informa tion online Indication:BMI 35.0-35.9,adult Start:25-Jan-2019 Instruction Type:Patient Education How to access health informa tion online - Detail Indication:BMI 35.0-35.9,adult Start:25-Jan-2019 Instruction Type:Patient Education Patient Instructions Indication:BMI 35.0-35.9,adult Start:25-Jan-2019 Instruction Type:Provider Instructions for Treatment How to access health informa tion online Indication:Snores Start:21-Aug-2017 Instruction Type:Patient Education How to access health informa tion online - Detail Indication:Snores Start:21-Aug-2017 Instruction Type:Patient Education Patient Instructions Indication:Snores Start:21-Aug-2017 Instruction Type:Provider Instructions for Treatment How to access health informa tion online Indication:Snores Start:27-Jul-2017 Instruction Type:Patient Education How to access health informa tion online - Detail Indication:Snores Start:27-Jul-2017 Instruction Type:Patient Education Patient Instructions Indication:Snores Start:27-Jul-2017 Instruction Type:Provider Instructions for Treatment How to access health informa tion online Indication:BMI 34.0-34.9,adult Start:13-Nov-2016 Instruction Type:Patient Education How to access health informa tion online - Detail Indication:BMI 34.0-34.9,adult Start:13-Nov-2016 Instruction Type:Patient Education Patient Instructions Indication:BMI 34.0-34.9,adult Start:13-Nov-2016 Instruction Type:Provider Instructions for Treatment How to access health informa tion online Indication:Non-smoker Start:20-Oct-2016 Instruction Type:Patient Education How to access health informa tion online - Detail Indication:Non-smoker Start:20-Oct-2016 Instruction Type:Patient Education Patient Instructions Indication:Non-smoker Start:20-Oct-2016 Instruction Type:Provider Instructions for Treatment How to access health informa tion online Indication:Left hip pain Start:07-Aug-2016 Instruction Type:Patient Education How to access health informa tion online - Detail Indication:Left hip pain Start:07-Aug-2016 Instruction Type:Patient Education Patient Instructions Indication:Left hip pain Start:07-Aug-2016 Instruction Type:Provider Instructions for Treatment How to access health informa tion online Indication:Medicare welcome exam Start:13-May-2016 Instruction Type:Patient Education How to access health informa tion online - Detail Indication:Medicare welcome exam Start:13-May-2016 Instruction Type:Patient Education Patient Instructions Indication:Medicare welcome exam Start:13-May-2016 Instruction Type:Provider Instructions for Treatment How to access health informa Nf[place]are[place] online Indication:Vomiting and diarrhea Start:05-Mar-2016 Instruction Type:Patient Education How to access health informa tion online - Detail Indication:Vomiting and diarrhea Start:05-Mar-2016 Instruction Type:Patient Education Patient Instructions Indication:Vomiting and diarrhea Start:05-Mar-2016 Instruction Type:Provider Instructions for Treatment Patient Instructions Indication:Heart disease, hypertensive, malignant, without heart failure Start:14-May-2015 Instruction Type:Provider Instructions for Treatment How to access health informa tion online Indication:DIARRHEA (Renamed from D (diarrhea)) Start:04-Apr-2015 Instruction Type:Patient Education How to access health informa tion online - Detail Indication:DIARRHEA (Renamed from D (diarrhea)) Start:04-Apr-2015 Instruction Type:Patient Education Patient Instructions Indication:DIARRHEA (Renamed from D (diarrhea)) Start:04-Apr-2015 Instruction Type:Provider Instructions for Treatment Patient Instructions Indication:Blood pressure check Start:25-Apr-2013 Instruction Type:Provider Instructions for Treatment Patient Instructions Indication:Pre-operative examination Start:18-Apr-2013 Instruction Type:Provider Instructions for Treatment Patient Instructions Indication:Hypercalcemia Start:17-Jan-2013 Instruction Type:Provider Instructions for Treatment Patient Instructions Indication:Pre-operative examination Start:24-Dec-2012 Instruction Type:Provider Instructions for Treatment Patient Instructions Indication:Myalgia Start:27-Sep-2012 Instruction Type:Provider Instructions for Treatment Patient Instructions Indication:Acute sinusitis, unspecified Start:08-Sep-2012 Instruction Type:Provider Instructions for Treatment Name Dates Details How to access health informa tion online Indication:Nonsmoker Start:16-Jan-2020 Instruction Type:Patient Education How to access health informa tion online - Detail Indication:Nonsmoker Start:16-Jan-2020 Instruction Type:Patient Education Patient Instructions Indication:Nonsmoker Start:16-Jan-2020 Instruction Type:Provider Instructions for Treatment How to access health informa tion online Indication:Nonsmoker Start:14-Oct-2019 Instruction Type:Patient Education How to access health informa tion online - Detail Indication:Nonsmoker Start:14-Oct-2019 Instruction Type:Patient Education Patient Instructions Indication:BMI 36.0-36.9,adult Start:14-Oct-2019 Instruction Type:Provider Instructions for Treatment How to access health informa tion online Indication:Unspecified Diagnosis Start:15-Aug-2019 Instruction Type:Patient Education How to access health informa tion online - Detail Indication:Unspecified Diagnosis Start:15-Aug-2019 Instruction Type:Patient Education Patient Instructions Indication:Unspecified Diagnosis Start:15-Aug-2019 Instruction Type:Provider Instructions for Treatment How to access health informa tion online Indication:Nonsmoker Start:13-Jul-2019 Instruction Type:Patient Education How to access health informa tion online - Detail Indication:Nonsmoker Start:13-Jul-2019 Instruction Type:Patient Education Patient Instructions Indication:Nonsmoker Start:13-Jul-2019 Instruction Type:Provider Instructions for Treatment How to access health informa tion online Indication:BMI 35.0-35.9,adult Start:25-Jan-2019 Instruction Type:Patient Education How to access health informa tion online - Detail Indication:BMI 35.0-35.9,adult Start:25-Jan-2019 Instruction Type:Patient Education Patient Instructions Indication:BMI 35.0-35.9,adult Start:25-Jan-2019 Instruction Type:Provider Instructions for Treatment How to access health informa tion online Indication:Snores Start:21-Aug-2017 Instruction Type:Patient Education How to access health informa tion online - Detail Indication:Snores Start:21-Aug-2017 Instruction Type:Patient Education Patient Instructions Indication:Snores Start:21-Aug-2017 Instruction Type:Provider Instructions for Treatment How to access health informa tion online Indication:Snores Start:27-Jul-2017 Instruction Type:Patient Education How to access health informa tion online - Detail Indication:Snores Start:27-Jul-2017 Instruction Type:Patient Education Patient Instructions Indication:Snores Start:27-Jul-2017 Instruction Type:Provider Instructions for Treatment How to access health informa tion online Indication:BMI 34.0-34.9,adult Start:13-Nov-2016 Instruction Type:Patient Education How to access health informa tion online - Detail Indication:BMI 34.0-34.9,adult Start:13-Nov-2016 Instruction Type:Patient Education Patient Instructions Indication:BMI 34.0-34.9,adult Start:13-Nov-2016 Instruction Type:Provider Instructions for Treatment How to access health informa tion online Indication:Non-smoker Start:20-Oct-2016 Instruction Type:Patient Education How to access health informa tion online - Detail Indication:Non-smoker Start:20-Oct-2016 Instruction Type:Patient Education Patient Instructions Indication:Non-smoker Start:20-Oct-2016 Instruction Type:Provider Instructions for Treatment How to access health informa tion online Indication:Left hip pain Start:07-Aug-2016 Instruction Type:Patient Education How to access health informa tion online - Detail Indication:Left hip pain Start:07-Aug-2016 Instruction Type:Patient Education Patient Instructions Indication:Left hip pain Start:07-Aug-2016 Instruction Type:Provider Instructions for Treatment How to access health informa tion online Indication:Medicare welcome exam Start:13-May-2016 Instruction Type:Patient Education How to access health informa tion online - Detail Indication:Medicare welcome exam Start:13-May-2016 Instruction Type:Patient Education Patient Instructions Indication:Medicare welcome exam Start:13-May-2016 Instruction Type:Provider Instructions for Treatment How to access health informa tion online Indication:Vomiting and diarrhea Start:05-Mar-2016 Instruction Type:Patient Education How to access health informa tion online - Detail Indication:Vomiting and diarrhea Start:05-Mar-2016 Instruction Type:Patient Education Patient Instructions Indication:Vomiting and diarrhea Start:05-Mar-2016 Instruction Type:Provider Instructions for Treatment Patient Instructions Indication:Heart disease, hypertensive, malignant, without heart failure Start:14-May-2015 Instruction Type:Provider Instructions for Treatment How to access health informa tion online Indication:DIARRHEA (Renamed from D (diarrhea)) Start:04-Apr-2015 Instruction Type:Patient Education How to access health informa tion online - Detail Indication:DIARRHEA (Renamed from D (diarrhea)) Start:04-Apr-2015 Instruction Type:Patient Education Patient Instructions Indication:DIARRHEA (Renamed from D (diarrhea)) Start:04-Apr-2015 Instruction Type:Provider Instructions for Treatment Patient Instructions Indication:Blood pressure check Start:25-Apr-2013 Instruction Type:Provider Instructions for Treatment Patient Instructions Indication:Pre-operative examination Start:18-Apr-2013 Instruction Type:Provider Instructions for Treatment Patient Instructions Indication:Hypercalcemia Start:17-Jan-2013 Instruction Type:Provider Instructions for Treatment Patient Instructions Indication:Pre-operative examination Start:24-Dec-2012 Instruction Type:Provider Instructions for Treatment Patient Instructions Indication:Myalgia Start:27-Sep-2012 Instruction Type:Provider Instructions for Treatment Patient Instructions Indication:Acute sinusitis, unspecified Start:08-Sep-2012 Instruction Type:Provider Instructions for Treatment Name Dates Details How to access health informa tion online Indication:Nonsmoker Start:25-Apr-2020 Instruction Type:Patient Education How to access health informa tion online - Detail Indication:Nonsmoker Start:25-Apr-2020 Instruction Type:Patient Education Patient Instructions Indication:Nonsmoker Start:25-Apr-2020 Instruction Type:Provider Instructions for Treatment How to access health informa tion online Indication:Nonsmoker Start:16-Jan-2020 Instruction Type:Patient Education How to access health informa tion online - Detail Indication:Nonsmoker Start:16-Jan-2020 Instruction Type:Patient Education Patient Instructions Indication:Nonsmoker Start:16-Jan-2020 Instruction Type:Provider Instructions for Treatment How to access health informa tion online Indication:Nonsmoker Start:14-Oct-2019 Instruction Type:Patient Education How to access health informa tion online - Detail Indication:Nonsmoker Start:14-Oct-2019 Instruction Type:Patient Education Patient Instructions Indication:BMI 36.0-36.9,adult Start:14-Oct-2019 Instruction Type:Provider Instructions for Treatment How to access health informa tion online Indication:Unspecified Diagnosis Start:15-Aug-2019 Instruction Type:Patient Education How to access health informa tion online - Detail Indication:Unspecified Diagnosis Start:15-Aug-2019 Instruction Type:Patient Education Patient Instructions Indication:Unspecified Diagnosis Start:15-Aug-2019 Instruction Type:Provider Instructions for Treatment How to access health informa tion online Indication:Nonsmoker Start:13-Jul-2019 Instruction Type:Patient Education How to access health informa tion online - Detail Indication:Nonsmoker Start:13-Jul-2019 Instruction Type:Patient Education Patient Instructions Indication:Nonsmoker Start:13-Jul-2019 Instruction Type:Provider Instructions for Treatment How to access health informa tion online Indication:BMI 35.0-35.9,adult Start:25-Jan-2019 Instruction Type:Patient Education How to access health informa tion online - Detail Indication:BMI 35.0-35.9,adult Start:25-Jan-2019 Instruction Type:Patient Education Patient Instructions Indication:BMI 35.0-35.9,adult Start:25-Jan-2019 Instruction Type:Provider Instructions for Treatment How to access health informa tion online Indication:Snores Start:21-Aug-2017 Instruction Type:Patient Education How to access health informa tion online - Detail Indication:Snores Start:21-Aug-2017 Instruction Type:Patient Education Patient Instructions Indication:Snores Start:21-Aug-2017 Instruction Type:Provider Instructions for Treatment How to access health informa tion online Indication:Snores Start:27-Jul-2017 Instruction Type:Patient Education How to access health informa tion online - Detail Indication:Snores Start:27-Jul-2017 Instruction Type:Patient Education Patient Instructions Indication:Snores Start:27-Jul-2017 Instruction Type:Provider Instructions for Treatment How to access health informa tion online Indication:BMI 34.0-34.9,adult Start:13-Nov-2016 Instruction Type:Patient Education How to access health informa tion online - Detail Indication:BMI 34.0-34.9,adult Start:13-Nov-2016 Instruction Type:Patient Education Patient Instructions Indication:BMI 34.0-34.9,adult Start:13-Nov-2016 Instruction Type:Provider Instructions for Treatment How to access health informa tion online Indication:Non-smoker Start:20-Oct-2016 Instruction Type:Patient Education How to access health informa tion online - Detail Indication:Non-smoker Start:20-Oct-2016 Instruction Type:Patient Education Patient Instructions Indication:Non-smoker Start:20-Oct-2016 Instruction Type:Provider Instructions for Treatment How to access health informa tion online Indication:Left hip pain Start:07-Aug-2016 Instruction Type:Patient Education How to access health informa tion online - Detail Indication:Left hip pain Start:07-Aug-2016 Instruction Type:Patient Education Patient Instructions Indication:Left hip pain Start:07-Aug-2016 Instruction Type:Provider Instructions for Treatment How to access health informa tion online Indication:Medicare welcome exam Start:13-May-2016 Instruction Type:Patient Education How to access health informa tion online - Detail Indication:Medicare welcome exam Start:13-May-2016 Instruction Type:Patient Education Patient Instructions Indication:Medicare welcome exam Start:13-May-2016 Instruction Type:Provider Instructions for Treatment How to access health informa tion online Indication:Vomiting and diarrhea Start:05-Mar-2016 Instruction Type:Patient Education How to access health informa tion online - Detail Indication:Vomiting and diarrhea Start:05-Mar-2016 Instruction Type:Patient Education Patient Instructions Indication:Vomiting and diarrhea Start:05-Mar-2016 Instruction Type:Provider Instructions for Treatment Patient Instructions Indication:Heart disease, hypertensive, malignant, without heart failure Start:14-May-2015 Instruction Type:Provider Instructions for Treatment How to access health informa tion online Indication:DIARRHEA (Renamed from D (diarrhea)) Start:04-Apr-2015 Instruction Type:Patient Education How to access health informa tion online - Detail Indication:DIARRHEA (Renamed from D (diarrhea)) Start:04-Apr-2015 Instruction Type:Patient Education Patient Instructions Indication:DIARRHEA (Renamed from D (diarrhea)) Start:04-Apr-2015 Instruction Type:Provider Instructions for Treatment Patient Instructions Indication:Blood pressure check Start:25-Apr-2013 Instruction Type:Provider Instructions for Treatment Patient Instructions Indication:Pre-operative examination Start:18-Apr-2013 Instruction Type:Provider Instructions for Treatment Patient Instructions Indication:Hypercalcemia Start:17-Jan-2013 Instruction Type:Provider Instructions for Treatment Patient Instructions Indication:Pre-operative examination Start:24-Dec-2012 Instruction Type:Provider Instructions for Treatment Patient Instructions Indication:Myalgia Start:27-Sep-2012 Instruction Type:Provider Instructions for Treatment Patient Instructions Indication:Acute sinusitis, unspecified Start:08-Sep-2012 Instruction Type:Provider Instructions for Treatment Name Dates Details How to access health informa tion online Indication:Nonsmoker Start:25-Apr-2020 Instruction Type:Patient Education How to access health informa tion online - Detail Indication:Nonsmoker Start:25-Apr-2020 Instruction Type:Patient Education Patient Instructions Indication:Nonsmoker Start:25-Apr-2020 Instruction Type:Provider Instructions for Treatment How to access health informa tion online Indication:Nonsmoker Start:16-Jan-2020 Instruction Type:Patient Education How to access health informa tion online - Detail Indication:Nonsmoker Start:16-Jan-2020 Instruction Type:Patient Education Patient Instructions Indication:Nonsmoker Start:16-Jan-2020 Instruction Type:Provider Instructions for Treatment How to access health informa tion online Indication:Nonsmoker Start:14-Oct-2019 Instruction Type:Patient Education How to access health informa tion online - Detail Indication:Nonsmoker Start:14-Oct-2019 Instruction Type:Patient Education Patient Instructions Indication:BMI 36.0-36.9,adult Start:14-Oct-2019 Instruction Type:Provider Instructions for Treatment How to access health informa tion online Indication:Unspecified Diagnosis Start:15-Aug-2019 Instruction Type:Patient Education How to access health informa tion online - Detail Indication:Unspecified Diagnosis Start:15-Aug-2019 Instruction Type:Patient Education Patient Instructions Indication:Unspecified Diagnosis Start:15-Aug-2019 Instruction Type:Provider Instructions for Treatment How to access health informa tion online Indication:Nonsmoker Start:13-Jul-2019 Instruction Type:Patient Education How to access health informa tion online - Detail Indication:Nonsmoker Start:13-Jul-2019 Instruction Type:Patient Education Patient Instructions Indication:Nonsmoker Start:13-Jul-2019 Instruction Type:Provider Instructions for Treatment How to access health informa tion online Indication:BMI 35.0-35.9,adult Start:25-Jan-2019 Instruction Type:Patient Education How to access health informa tion online - Detail Indication:BMI 35.0-35.9,adult Start:25-Jan-2019 Instruction Type:Patient Education Patient Instructions Indication:BMI 35.0-35.9,adult Start:25-Jan-2019 Instruction Type:Provider Instructions for Treatment How to access health informa tion online Indication:Snores Start:21-Aug-2017 Instruction Type:Patient Education How to access health informa tion online - Detail Indication:Snores Start:21-Aug-2017 Instruction Type:Patient Education Patient Instructions Indication:Snores Start:21-Aug-2017 Instruction Type:Provider Instructions for Treatment How to access health informa tion online Indication:Snores Start:27-Jul-2017 Instruction Type:Patient Education How to access health informa tion online - Detail Indication:Snores Start:27-Jul-2017 Instruction Type:Patient Education Patient Instructions Indication:Snores Start:27-Jul-2017 Instruction Type:Provider Instructions for Treatment How to access health informa tion online Indication:BMI 34.0-34.9,adult Start:13-Nov-2016 Instruction Type:Patient Education How to access health informa tion online - Detail Indication:BMI 34.0-34.9,adult Start:13-Nov-2016 Instruction Type:Patient Education Patient Instructions Indication:BMI 34.0-34.9,adult Start:13-Nov-2016 Instruction Type:Provider Instructions for Treatment How to access health informa tion online Indication:Non-smoker Start:20-Oct-2016 Instruction Type:Patient Education How to access health informa tion online - Detail Indication:Non-smoker Start:20-Oct-2016 Instruction Type:Patient Education Patient Instructions Indication:Non-smoker Start:20-Oct-2016 Instruction Type:Provider Instructions for Treatment How to access health informa tion online Indication:Left hip pain Start:07-Aug-2016 Instruction Type:Patient Education How to access health informa tion online - Detail Indication:Left hip pain Start:07-Aug-2016 Instruction Type:Patient Education Patient Instructions Indication:Left hip pain Start:07-Aug-2016 Instruction Type:Provider Instructions for Treatment How to access health informa tion online Indication:Medicare welcome exam Start:13-May-2016 Instruction Type:Patient Education How to access health informa tion online - Detail Indication:Medicare welcome exam Start:13-May-2016 Instruction Type:Patient Education Patient Instructions Indication:Medicare welcome exam Start:13-May-2016 Instruction Type:Provider Instructions for Treatment How to access health informa tion online Indication:Vomiting and diarrhea Start:05-Mar-2016 Instruction Type:Patient Education How to access health informa tion online - Detail Indication:Vomiting and diarrhea Start:05-Mar-2016 Instruction Type:Patient Education Patient Instructions Indication:Vomiting and diarrhea Start:05-Mar-2016 Instruction Type:Provider Instructions for Treatment Patient Instructions Indication:Heart disease, hypertensive, malignant, without heart failure Start:14-May-2015 Instruction Type:Provider Instructions for Treatment How to access health informa tion online Indication:DIARRHEA (Renamed from D (diarrhea)) Start:04-Apr-2015 Instruction Type:Patient Education How to access health informa tion online - Detail Indication:DIARRHEA (Renamed from D (diarrhea)) Start:04-Apr-2015 Instruction Type:Patient Education Patient Instructions Indication:DIARRHEA (Renamed from D (diarrhea)) Start:04-Apr-2015 Instruction Type:Provider Instructions for Treatment Patient Instructions Indication:Blood pressure check Start:25-Apr-2013 Instruction Type:Provider Instructions for Treatment Patient Instructions Indication:Pre-operative examination Start:18-Apr-2013 Instruction Type:Provider Instructions for Treatment Patient Instructions Indication:Hypercalcemia Start:17-Jan-2013 Instruction Type:Provider Instructions for Treatment Patient Instructions Indication:Pre-operative examination Start:24-Dec-2012 Instruction Type:Provider Instructions for Treatment Patient Instructions Indication:Myalgia Start:27-Sep-2012 Instruction Type:Provider Instructions for Treatment Patient Instructions Indication:Acute sinusitis, unspecified Start:08-Sep-2012 Instruction Type:Provider Instructions for Treatment Name Dates Details How to access health informa tion online Indication:Nonsmoker Start:14-Sep-2020 Instruction Type:Patient Education How to access health informa tion online - Detail Indication:Nonsmoker Start:14-Sep-2020 Instruction Type:Patient Education Patient Instructions Indication:Nonsmoker Start:14-Sep-2020 Instruction Type:Provider Instructions for Treatment How to access health informa tion online Indication:Nonsmoker Start:25-Apr-2020 Instruction Type:Patient Education How to access health informa tion online - Detail Indication:Nonsmoker Start:25-Apr-2020 Instruction Type:Patient Education Patient Instructions Indication:Nonsmoker Start:25-Apr-2020 Instruction Type:Provider Instructions for Treatment How to access health informa tion online Indication:Nonsmoker Start:16-Jan-2020 Instruction Type:Patient Education How to access health informa tion online - Detail Indication:Nonsmoker Start:16-Jan-2020 Instruction Type:Patient Education Patient Instructions Indication:Nonsmoker Start:16-Jan-2020 Instruction Type:Provider Instructions for Treatment How to access health informa tion online Indication:Nonsmoker Start:14-Oct-2019 Instruction Type:Patient Education How to access health informa tion online - Detail Indication:Nonsmoker Start:14-Oct-2019 Instruction Type:Patient Education Patient Instructions Indication:BMI 36.0-36.9,adult Start:14-Oct-2019 Instruction Type:Provider Instructions for Treatment How to access health informa tion online Indication:Unspecified Diagnosis Start:15-Aug-2019 Instruction Type:Patient Education How to access health informa tion online - Detail Indication:Unspecified Diagnosis Start:15-Aug-2019 Instruction Type:Patient Education Patient Instructions Indication:Unspecified Diagnosis Start:15-Aug-2019 Instruction Type:Provider Instructions for Treatment How to access health informa tion online Indication:Nonsmoker Start:13-Jul-2019 Instruction Type:Patient Education How to access health informa tion online - Detail Indication:Nonsmoker Start:13-Jul-2019 Instruction Type:Patient Education Patient Instructions Indication:Nonsmoker Start:13-Jul-2019 Instruction Type:Provider Instructions for Treatment How to access health informa tion online Indication:BMI 35.0-35.9,adult Start:25-Jan-2019 Instruction Type:Patient Education How to access health informa tion online - Detail Indication:BMI 35.0-35.9,adult Start:25-Jan-2019 Instruction Type:Patient Education Patient Instructions Indication:BMI 35.0-35.9,adult Start:25-Jan-2019 Instruction Type:Provider Instructions for Treatment How to access health informa tion online Indication:Snores Start:21-Aug-2017 Instruction Type:Patient Education How to access health informa tion online - Detail Indication:Snores Start:21-Aug-2017 Instruction Type:Patient Education Patient Instructions Indication:Snores Start:21-Aug-2017 Instruction Type:Provider Instructions for Treatment How to access health informa tion online Indication:Snores Start:27-Jul-2017 Instruction Type:Patient Education How to access health informa tion online - Detail Indication:Snores Start:27-Jul-2017 Instruction Type:Patient Education Patient Instructions Indication:Snores Start:27-Jul-2017 Instruction Type:Provider Instructions for Treatment How to access health informa tion online Indication:BMI 34.0-34.9,adult Start:13-Nov-2016 Instruction Type:Patient Education How to access health informa tion online - Detail Indication:BMI 34.0-34.9,adult Start:13-Nov-2016 Instruction Type:Patient Education Patient Instructions Indication:BMI 34.0-34.9,adult Start:13-Nov-2016 Instruction Type:Provider Instructions for Treatment How to access health informa tion online Indication:Non-smoker Start:20-Oct-2016 Instruction Type:Patient Education How to access health informa tion online - Detail Indication:Non-smoker Start:20-Oct-2016 Instruction Type:Patient Education Patient Instructions Indication:Non-smoker Start:20-Oct-2016 Instruction Type:Provider Instructions for Treatment How to access health informa tion online Indication:Left hip pain Start:07-Aug-2016 Instruction Type:Patient Education How to access health informa tion online - Detail Indication:Left hip pain Start:07-Aug-2016 Instruction Type:Patient Education Patient Instructions Indication:Left hip pain Start:07-Aug-2016 Instruction Type:Provider Instructions for Treatment How to access health informa tion online Indication:Medicare welcome exam Start:13-May-2016 Instruction Type:Patient Education How to access health informa tion online - Detail Indication:Medicare welcome exam Start:13-May-2016 Instruction Type:Patient Education Patient Instructions Indication:Medicare welcome exam Start:13-May-2016 Instruction Type:Provider Instructions for Treatment How to access health informa tion online Indication:Vomiting and diarrhea Start:05-Mar-2016 Instruction Type:Patient Education How to access health informa tion online - Detail Indication:Vomiting and diarrhea Start:05-Mar-2016 Instruction Type:Patient Education Patient Instructions Indication:Vomiting and diarrhea Start:05-Mar-2016 Instruction Type:Provider Instructions for Treatment Patient Instructions Indication:Heart disease, hypertensive, malignant, without heart failure Start:14-May-2015 Instruction Type:Provider Instructions for Treatment How to access health informa tion online Indication:DIARRHEA (Renamed from D (diarrhea)) Start:04-Apr-2015 Instruction Type:Patient Education How to access health informa tion online - Detail Indication:DIARRHEA (Renamed from D (diarrhea)) Start:04-Apr-2015 Instruction Type:Patient Education Patient Instructions Indication:DIARRHEA (Renamed from D (diarrhea)) Start:04-Apr-2015 Instruction Type:Provider Instructions for Treatment Patient Instructions Indication:Blood pressure check Start:25-Apr-2013 Instruction Type:Provider Instructions for Treatment Patient Instructions Indication:Pre-operative examination Start:18-Apr-2013 Instruction Type:Provider Instructions for Treatment Patient Instructions Indication:Hypercalcemia Start:17-Jan-2013 Instruction Type:Provider Instructions for Treatment Patient Instructions Indication:Pre-operative examination Start:24-Dec-2012 Instruction Type:Provider Instructions for Treatment Patient Instructions Indication:Myalgia Start:27-Sep-2012 Instruction Type:Provider Instructions for Treatment Patient Instructions Indication:Acute sinusitis, unspecified Start:08-Sep-2012 Instruction Type:Provider Instructions for Treatment Name Dates Details Patient Instructions Indication:Nonsmoker Start:30-Oct-2020 Instruction Type:Provider Instructions for Treatment How to Access Health Informa tion Online using Patient Portal and [employer] Apps Indication:Nonsmoker Start:30-Oct-2020 Instruction Type:Patient Education How to access health informa tion online Indication:Nonsmoker Start:14-Sep-2020 Instruction Type:Patient Education How to access health informa tion online - Detail Indication:Nonsmoker Start:14-Sep-2020 Instruction Type:Patient Education Patient Instructions Indication:Nonsmoker Start:14-Sep-2020 Instruction Type:Provider Instructions for Treatment How to access health informa tion online Indication:Nonsmoker Start:25-Apr-2020 Instruction Type:Patient Education How to access health informa tion online - Detail Indication:Nonsmoker Start:25-Apr-2020 Instruction Type:Patient Education Patient Instructions Indication:Nonsmoker Start:25-Apr-2020 Instruction Type:Provider Instructions for Treatment How to access health informa tion online Indication:Nonsmoker Start:16-Jan-2020 Instruction Type:Patient Education How to access health informa tion online - Detail Indication:Nonsmoker Start:16-Jan-2020 Instruction Type:Patient Education Patient Instructions Indication:Nonsmoker Start:16-Jan-2020 Instruction Type:Provider Instructions for Treatment How to access health informa tion online Indication:Nonsmoker Start:14-Oct-2019 Instruction Type:Patient Education How to access health informa tion online - Detail Indication:Nonsmoker Start:14-Oct-2019 Instruction Type:Patient Education Patient Instructions Indication:BMI 36.0-36.9,adult Start:14-Oct-2019 Instruction Type:Provider Instructions for Treatment How to access health informa tion online Indication:Unspecified Diagnosis Start:15-Aug-2019 Instruction Type:Patient Education How to access health informa tion online - Detail Indication:Unspecified Diagnosis Start:15-Aug-2019 Instruction Type:Patient Education Patient Instructions Indication:Unspecified Diagnosis Start:15-Aug-2019 Instruction Type:Provider Instructions for Treatment How to access health informa tion online Indication:Nonsmoker Start:13-Jul-2019 Instruction Type:Patient Education How to access health informa tion online - Detail Indication:Nonsmoker Start:13-Jul-2019 Instruction Type:Patient Education Patient Instructions Indication:Nonsmoker Start:13-Jul-2019 Instruction Type:Provider Instructions for Treatment How to access health informa tion online Indication:BMI 35.0-35.9,adult Start:25-Jan-2019 Instruction Type:Patient Education How to access health informa tion online - Detail Indication:BMI 35.0-35.9,adult Start:25-Jan-2019 Instruction Type:Patient Education Patient Instructions Indication:BMI 35.0-35.9,adult Start:25-Jan-2019 Instruction Type:Provider Instructions for Treatment How to access health informa tion online Indication:Snores Start:21-Aug-2017 Instruction Type:Patient Education How to access health informa tion online - Detail Indication:Snores Start:21-Aug-2017 Instruction Type:Patient Education Patient Instructions Indication:Snores Start:21-Aug-2017 Instruction Type:Provider Instructions for Treatment How to access health informa tion online Indication:Snores Start:27-Jul-2017 Instruction Type:Patient Education How to access health informa tion online - Detail Indication:Snores Start:27-Jul-2017 Instruction Type:Patient Education Patient Instructions Indication:Snores Start:27-Jul-2017 Instruction Type:Provider Instructions for Treatment How to access health informa tion online Indication:BMI 34.0-34.9,adult Start:13-Nov-2016 Instruction Type:Patient Education How to access health informa tion online - Detail Indication:BMI 34.0-34.9,adult Start:13-Nov-2016 Instruction Type:Patient Education Patient Instructions Indication:BMI 34.0-34.9,adult Start:13-Nov-2016 Instruction Type:Provider Instructions for Treatment How to access health informa tion online Indication:Non-smoker Start:20-Oct-2016 Instruction Type:Patient Education How to access health informa tion online - Detail Indication:Non-smoker Start:20-Oct-2016 Instruction Type:Patient Education Patient Instructions Indication:Non-smoker Start:20-Oct-2016 Instruction Type:Provider Instructions for Treatment How to access health informa tion online Indication:Left hip pain Start:07-Aug-2016 Instruction Type:Patient Education How to access health informa tion online - Detail Indication:Left hip pain Start:07-Aug-2016 Instruction Type:Patient Education Patient Instructions Indication:Left hip pain Start:07-Aug-2016 Instruction Type:Provider Instructions for Treatment How to access health informa tion online Indication:Medicare welcome exam Start:13-May-2016 Instruction Type:Patient Education How to access health informa tion online - Detail Indication:Medicare welcome exam Start:13-May-2016 Instruction Type:Patient Education Patient Instructions Indication:Medicare welcome exam Start:13-May-2016 Instruction Type:Provider Instructions for Treatment How to access health informa tion online Indication:Vomiting and diarrhea Start:05-Mar-2016 Instruction Type:Patient Education How to access health informa tion online - Detail Indication:Vomiting and diarrhea Start:05-Mar-2016 Instruction Type:Patient Education Patient Instructions Indication:Vomiting and diarrhea Start:05-Mar-2016 Instruction Type:Provider Instructions for Treatment Patient Instructions Indication:Heart disease, hypertensive, malignant, without heart failure Start:14-May-2015 Instruction Type:Provider Instructions for Treatment How to access health informa tion online Indication:DIARRHEA (Renamed from D (diarrhea)) Start:04-Apr-2015 Instruction Type:Patient Education How to access health informa tion online - Detail Indication:DIARRHEA (Renamed from D (diarrhea)) Start:04-Apr-2015 Instruction Type:Patient Education Patient Instructions Indication:DIARRHEA (Renamed from D (diarrhea)) Start:04-Apr-2015 Instruction Type:Provider Instructions for Treatment Patient Instructions Indication:Blood pressure check Start:25-Apr-2013 Instruction Type:Provider Instructions for Treatment Patient Instructions Indication:Pre-operative examination Start:18-Apr-2013 Instruction Type:Provider Instructions for Treatment Patient Instructions Indication:Hypercalcemia Start:17-Jan-2013 Instruction Type:Provider Instructions for Treatment Patient Instructions Indication:Pre-operative examination Start:24-Dec-2012 Instruction Type:Provider Instructions for Treatment Patient Instructions Indication:Myalgia Start:27-Sep-2012 Instruction Type:Provider Instructions for Treatment Patient Instructions Indication:Acute sinusitis, unspecified Start:08-Sep-2012 Instruction Type:Provider Instructions for Treatment Name Dates Details Patient Instructions Indication:Nonsmoker Start:30-Oct-2020 Instruction Type:Provider Instructions for Treatment How to Access Health Informa tion Online using Patient Portal and [employer] Apps Indication:Nonsmoker Start:30-Oct-2020 Instruction Type:Patient Education How to access health informa tion online Indication:Nonsmoker Start:14-Sep-2020 Instruction Type:Patient Education How to access health informa tion online - Detail Indication:Nonsmoker Start:14-Sep-2020 Instruction Type:Patient Education Patient Instructions Indication:Nonsmoker Start:14-Sep-2020 Instruction Type:Provider Instructions for Treatment How to access health informa tion online Indication:Nonsmoker Start:25-Apr-2020 Instruction Type:Patient Education How to access health informa tion online - Detail Indication:Nonsmoker Start:25-Apr-2020 Instruction Type:Patient Education Patient Instructions Indication:Nonsmoker Start:25-Apr-2020 Instruction Type:Provider Instructions for Treatment How to access health informa tion online Indication:Nonsmoker Start:16-Jan-2020 Instruction Type:Patient Education How to access health informa tion online - Detail Indication:Nonsmoker Start:16-Jan-2020 Instruction Type:Patient Education Patient Instructions Indication:Nonsmoker Start:16-Jan-2020 Instruction Type:Provider Instructions for Treatment How to access health informa tion online Indication:Nonsmoker Start:14-Oct-2019 Instruction Type:Patient Education How to access health informa tion online - Detail Indication:Nonsmoker Start:14-Oct-2019 Instruction Type:Patient Education Patient Instructions Indication:BMI 36.0-36.9,adult Start:14-Oct-2019 Instruction Type:Provider Instructions for Treatment How to access health informa tion online Indication:Unspecified Diagnosis Start:15-Aug-2019 Instruction Type:Patient Education How to access health informa tion online - Detail Indication:Unspecified Diagnosis Start:15-Aug-2019 Instruction Type:Patient Education Patient Instructions Indication:Unspecified Diagnosis Start:15-Aug-2019 Instruction Type:Provider Instructions for Treatment How to access health informa tion online Indication:Nonsmoker Start:13-Jul-2019 Instruction Type:Patient Education How to access health informa tion online - Detail Indication:Nonsmoker Start:13-Jul-2019 Instruction Type:Patient Education Patient Instructions Indication:Nonsmoker Start:13-Jul-2019 Instruction Type:Provider Instructions for Treatment How to access health informa tion online Indication:BMI 35.0-35.9,adult Start:25-Jan-2019 Instruction Type:Patient Education How to access health informa tion online - Detail Indication:BMI 35.0-35.9,adult Start:25-Jan-2019 Instruction Type:Patient Education Patient Instructions Indication:BMI 35.0-35.9,adult Start:25-Jan-2019 Instruction Type:Provider Instructions for Treatment How to access health informa tion online Indication:Snores Start:21-Aug-2017 Instruction Type:Patient Education How to access health informa tion online - Detail Indication:Snores Start:21-Aug-2017 Instruction Type:Patient Education Patient Instructions Indication:Snores Start:21-Aug-2017 Instruction Type:Provider Instructions for Treatment How to access health informa tion online Indication:Snores Start:27-Jul-2017 Instruction Type:Patient Education How to access health informa tion online - Detail Indication:Snores Start:27-Jul-2017 Instruction Type:Patient Education Patient Instructions Indication:Snores Start:27-Jul-2017 Instruction Type:Provider Instructions for Treatment How to access health informa tion online Indication:BMI 34.0-34.9,adult Start:13-Nov-2016 Instruction Type:Patient Education How to access health informa tion online - Detail Indication:BMI 34.0-34.9,adult Start:13-Nov-2016 Instruction Type:Patient Education Patient Instructions Indication:BMI 34.0-34.9,adult Start:13-Nov-2016 Instruction Type:Provider Instructions for Treatment How to access health informa tion online Indication:Non-smoker Start:20-Oct-2016 Instruction Type:Patient Education How to access health informa tion online - Detail Indication:Non-smoker Start:20-Oct-2016 Instruction Type:Patient Education Patient Instructions Indication:Non-smoker Start:20-Oct-2016 Instruction Type:Provider Instructions for Treatment How to access health informa tion online Indication:Left hip pain Start:07-Aug-2016 Instruction Type:Patient Education How to access health informa tion online - Detail Indication:Left hip pain Start:07-Aug-2016 Instruction Type:Patient Education Patient Instructions Indication:Left hip pain Start:07-Aug-2016 Instruction Type:Provider Instructions for Treatment How to access health informa tion online Indication:Medicare welcome exam Start:13-May-2016 Instruction Type:Patient Education How to access health informa tion online - Detail Indication:Medicare welcome exam Start:13-May-2016 Instruction Type:Patient Education Patient Instructions Indication:Medicare welcome exam Start:13-May-2016 Instruction Type:Provider Instructions for Treatment How to access health informa tion online Indication:Vomiting and diarrhea Start:05-Mar-2016 Instruction Type:Patient Education How to access health informa tion online - Detail Indication:Vomiting and diarrhea Start:05-Mar-2016 Instruction Type:Patient Education Patient Instructions Indication:Vomiting and diarrhea Start:05-Mar-2016 Instruction Type:Provider Instructions for Treatment Patient Instructions Indication:Heart disease, hypertensive, malignant, without heart failure Start:14-May-2015 Instruction Type:Provider Instructions for Treatment How to access health informa tion online Indication:DIARRHEA (Renamed from D (diarrhea)) Start:04-Apr-2015 Instruction Type:Patient Education How to access health informa tion online - Detail Indication:DIARRHEA (Renamed from D (diarrhea)) Start:04-Apr-2015 Instruction Type:Patient Education Patient Instructions Indication:DIARRHEA (Renamed from D (diarrhea)) Start:04-Apr-2015 Instruction Type:Provider Instructions for Treatment Patient Instructions Indication:Blood pressure check Start:25-Apr-2013 Instruction Type:Provider Instructions for Treatment Patient Instructions Indication:Pre-operative examination Start:18-Apr-2013 Instruction Type:Provider Instructions for Treatment Patient Instructions Indication:Hypercalcemia Start:17-Jan-2013 Instruction Type:Provider Instructions for Treatment Patient Instructions Indication:Pre-operative examination Start:24-Dec-2012 Instruction Type:Provider Instructions for Treatment Patient Instructions Indication:Myalgia Start:27-Sep-2012 Instruction Type:Provider Instructions for Treatment Patient Instructions Indication:Acute sinusitis, unspecified Start:08-Sep-2012 Instruction Type:Provider Instructions for Treatment Name Dates Details How to access health informa tion online Indication:Nonsmoker Start:13-Jul-2019 Instruction Type:Patient Education How to access health informa tion online - Detail Indication:Nonsmoker Start:13-Jul-2019 Instruction Type:Patient Education Patient Instructions Indication:Nonsmoker Start:13-Jul-2019 Instruction Type:Provider Instructions for Treatment How to access health informa tion online Indication:BMI 35.0-35.9,adult Start:25-Jan-2019 Instruction Type:Patient Education How to access health informa tion online - Detail Indication:BMI 35.0-35.9,adult Start:25-Jan-2019 Instruction Type:Patient Education Patient Instructions Indication:BMI 35.0-35.9,adult Start:25-Jan-2019 Instruction Type:Provider Instructions for Treatment How to access health informa tion online Indication:Snores Start:21-Aug-2017 Instruction Type:Patient Education How to access health informa tion online - Detail Indication:Snores Start:21-Aug-2017 Instruction Type:Patient Education Patient Instructions Indication:Snores Start:21-Aug-2017 Instruction Type:Provider Instructions for Treatment How to access health informa tion online Indication:Snores Start:27-Jul-2017 Instruction Type:Patient Education How to access health informa tion online - Detail Indication:Snores Start:27-Jul-2017 Instruction Type:Patient Education Patient Instructions Indication:Snores Start:27-Jul-2017 Instruction Type:Provider Instructions for Treatment How to access health informa tion online Indication:BMI 34.0-34.9,adult Start:13-Nov-2016 Instruction Type:Patient Education How to access health informa tion online - Detail Indication:BMI 34.0-34.9,adult Start:13-Nov-2016 Instruction Type:Patient Education Patient Instructions Indication:BMI 34.0-34.9,adult Start:13-Nov-2016 Instruction Type:Provider Instructions for Treatment How to access health informa tion online Indication:Non-smoker Start:20-Oct-2016 Instruction Type:Patient Education How to access health informa tion online - Detail Indication:Non-smoker Start:20-Oct-2016 Instruction Type:Patient Education Patient Instructions Indication:Non-smoker Start:20-Oct-2016 Instruction Type:Provider Instructions for Treatment How to access health informa tion online Indication:Left hip pain Start:07-Aug-2016 Instruction Type:Patient Education How to access health informa tion online - Detail Indication:Left hip pain Start:07-Aug-2016 Instruction Type:Patient Education Patient Instructions Indication:Left hip pain Start:07-Aug-2016 Instruction Type:Provider Instructions for Treatment How to access health informa tion online Indication:Medicare welcome exam Start:13-May-2016 Instruction Type:Patient Education How to access health informa tion online - Detail Indication:Medicare welcome exam Start:13-May-2016 Instruction Type:Patient Education Patient Instructions Indication:Medicare welcome exam Start:13-May-2016 Instruction Type:Provider Instructions for Treatment How to access health informa tion online Indication:Vomiting and diarrhea Start:05-Mar-2016 Instruction Type:Patient Education How to access health informa tion online - Detail Indication:Vomiting and diarrhea Start:05-Mar-2016 Instruction Type:Patient Education Patient Instructions Indication:Vomiting and diarrhea Start:05-Mar-2016 Instruction Type:Provider Instructions for Treatment Patient Instructions Indication:Heart disease, hypertensive, malignant, without heart failure Start:14-May-2015 Instruction Type:Provider Instructions for Treatment How to access health informa tion online Indication:DIARRHEA (Renamed from D (diarrhea)) Start:04-Apr-2015 Instruction Type:Patient Education How to access health informa tion online - Detail Indication:DIARRHEA (Renamed from D (diarrhea)) Start:04-Apr-2015 Instruction Type:Patient Education Patient Instructions Indication:DIARRHEA (Renamed from D (diarrhea)) Start:04-Apr-2015 Instruction Type:Provider Instructions for Treatment Patient Instructions Indication:Blood pressure check Start:25-Apr-2013 Instruction Type:Provider Instructions for Treatment Patient Instructions Indication:Pre-operative examination Start:18-Apr-2013 Instruction Type:Provider Instructions for Treatment Patient Instructions Indication:Hypercalcemia Start:17-Jan-2013 Instruction Type:Provider Instructions for Treatment Patient Instructions Indication:Pre-operative examination Start:24-Dec-2012 Instruction Type:Provider Instructions for Treatment Patient Instructions Indication:Myalgia Start:27-Sep-2012 Instruction Type:Provider Instructions for Treatment Patient Instructions Indication:Acute sinusitis, unspecified Start:08-Sep-2012 Instruction Type:Provider Instructions for Treatment Name Dates Details How to access health informa tion online Indication:Nonsmoker Start:13-Jul-2019 Instruction Type:Patient Education How to access health informa tion online - Detail Indication:Nonsmoker Start:13-Jul-2019 Instruction Type:Patient Education Patient Instructions Indication:Nonsmoker Start:13-Jul-2019 Instruction Type:Provider Instructions for Treatment How to access health informa tion online Indication:BMI 35.0-35.9,adult Start:25-Jan-2019 Instruction Type:Patient Education How to access health informa tion online - Detail Indication:BMI 35.0-35.9,adult Start:25-Jan-2019 Instruction Type:Patient Education Patient Instructions Indication:BMI 35.0-35.9,adult Start:25-Jan-2019 Instruction Type:Provider Instructions for Treatment How to access health informa tion online Indication:Snores Start:21-Aug-2017 Instruction Type:Patient Education How to access health informa tion online - Detail Indication:Snores Start:21-Aug-2017 Instruction Type:Patient Education Patient Instructions Indication:Snores Start:21-Aug-2017 Instruction Type:Provider Instructions for Treatment How to access health informa tion online Indication:Snores Start:27-Jul-2017 Instruction Type:Patient Education How to access health informa tion online - Detail Indication:Snores Start:27-Jul-2017 Instruction Type:Patient Education Patient Instructions Indication:Snores Start:27-Jul-2017 Instruction Type:Provider Instructions for Treatment How to access health informa tion online Indication:BMI 34.0-34.9,adult Start:13-Nov-2016 Instruction Type:Patient Education How to access health informa tion online - Detail Indication:BMI 34.0-34.9,adult Start:13-Nov-2016 Instruction Type:Patient Education Patient Instructions Indication:BMI 34.0-34.9,adult Start:13-Nov-2016 Instruction Type:Provider Instructions for Treatment How to access health informa tion online Indication:Non-smoker Start:20-Oct-2016 Instruction Type:Patient Education How to access health informa tion online - Detail Indication:Non-smoker Start:20-Oct-2016 Instruction Type:Patient Education Patient Instructions Indication:Non-smoker Start:20-Oct-2016 Instruction Type:Provider Instructions for Treatment How to access health informa tion online Indication:Left hip pain Start:07-Aug-2016 Instruction Type:Patient Education How to access health informa tion online - Detail Indication:Left hip pain Start:07-Aug-2016 Instruction Type:Patient Education Patient Instructions Indication:Left hip pain Start:07-Aug-2016 Instruction Type:Provider Instructions for Treatment How to access health informa tion online Indication:Medicare welcome exam Start:13-May-2016 Instruction Type:Patient Education How to access health informa tion online - Detail Indication:Medicare welcome exam Start:13-May-2016 Instruction Type:Patient Education Patient Instructions Indication:Medicare welcome exam Start:13-May-2016 Instruction Type:Provider Instructions for Treatment How to access health informa tion online Indication:Vomiting and diarrhea Start:05-Mar-2016 Instruction Type:Patient Education How to access health informa tion online - Detail Indication:Vomiting and diarrhea Start:05-Mar-2016 Instruction Type:Patient Education Patient Instructions Indication:Vomiting and diarrhea Start:05-Mar-2016 Instruction Type:Provider Instructions for Treatment Patient Instructions Indication:Heart disease, hypertensive, malignant, without heart failure Start:14-May-2015 Instruction Type:Provider Instructions for Treatment How to access health informa tion online Indication:DIARRHEA (Renamed from D (diarrhea)) Start:04-Apr-2015 Instruction Type:Patient Education How to access health informa tion online - Detail Indication:DIARRHEA (Renamed from D (diarrhea)) Start:04-Apr-2015 Instruction Type:Patient Education Patient Instructions Indication:DIARRHEA (Renamed from D (diarrhea)) Start:04-Apr-2015 Instruction Type:Provider Instructions for Treatment Patient Instructions Indication:Blood pressure check Start:25-Apr-2013 Instruction Type:Provider Instructions for Treatment Patient Instructions Indication:Pre-operative examination Start:18-Apr-2013 Instruction Type:Provider Instructions for Treatment Patient Instructions Indication:Hypercalcemia Start:17-Jan-2013 Instruction Type:Provider Instructions for Treatment Patient Instructions Indication:Pre-operative examination Start:24-Dec-2012 Instruction Type:Provider Instructions for Treatment Patient Instructions Indication:Myalgia Start:27-Sep-2012 Instruction Type:Provider Instructions for Treatment Patient Instructions Indication:Acute sinusitis, unspecified Start:08-Sep-2012 Instruction Type:Provider Instructions for Treatment Summary Purpose Advance Directives No Advanced Directives Records FoundNo Advanced Directives Records FoundNo Advanced Directives Records FoundNo Advanced Directives Records Found Additional Source Comments Source Comments (unrecognize d section and content) In the event this informatio n is protected by the Federal Confidentiality of Alcohol and Drug Abuse Patient Records regulations: The Federal rules restrict any use of the information to criminally investigate or prosecute any alcohol or drug abuse patient.[facility] the event this information is protected by the Federal Confidentiality of Alcohol and Drug Abuse Patient Records regulations: The Federal rules restrict any use of the information to criminally investigate or prosecute any alcohol or drug abuse patient.[facility] the event this information is protected by the Federal Confidentiality of Alcohol and Drug Abuse Patient Records regulations: The Federal rules restrict any use of the information to criminally investigate or prosecute any alcohol or drug abuse patient.[facility] the event this information is protected by the Federal Confidentiality of Alcohol and Drug Abuse Patient Records regulations: The Federal rules restrict any use of the information to criminally investigate or prosecute any alcohol or drug abuse patient.[facility] the event this information is protected by the Federal Confidentiality of Alcohol and Drug Abuse Patient Records regulations: The Federal rules restrict any use of the information to criminally investigate or prosecute any alcohol or drug abuse patient.[facility] Reason for Visit (unrecogniz ed section and content) Reason Comments Carotid artery stenosis Carmen is here to review 12/16/21 Carotid US Reason Comments Patient Question Testing Reults Reason Comments Results Reason Comments Appointment Appointment Reason Comments Established Patient Care Teams (unrecognized sec tion and content) Chemical Radiation Technician Relationship Specialty Start Date End Date Sushma Mueller CNP [address] [address] PCP - General Internal Medicine 12/05/19 Julián Weinstein, [address] [place] [address] Endocrinology 12/09/19 Edvin Armijo MD [address] [place] [address] Neurology 01/09/22 Chemical Radiation Technician Relationship Specialty Start Date End Date Ami Hallie, CNP [address] [facility] [address] [place] [address] PCP - General Internal Medicine 12/05/19 Julián Weinstein DO [address] [facility] [place] [address] Endocrinology 12/09/19 Edvin Armijo MD [address] [place] [address] Neurology 01/09/22 Chemical Radiation Technician Relationship Specialty Start Date End Date Sushma Mueller CNP [address] [facility] [address] [place] [address] PCP - General Internal Medicine 12/05/19 Jluián Weinstein DO [address] [facility] [place] [address] Endocrinology 12/09/19 Edvin Armijo MD [address] [place] [address] Neurology 01/09/22 Chemical Radiation Technician Relationship Specialty Start Date End Date Cindy Mcpherson CNP [address] [facility] [place] [address] PCP - General Family Medicine 11/06/23 Julián Weinstein DO [address] [facility] [place] [address] Endocrinology 12/09/19 Edvin Armijo MD [address] [place] [address] Neurology 01/09/22 Chemical Radiation Technician Relationship Specialty Start Date End Date Ky CindySHELIA [address] [place] [address] PCP - General Family Medicine 11/06/23 Julián Weinstein DO [address] [place] [address] Endocrinology 12/09/19 Edvin Armijo MD [address] [facility] [place] [address] Neurology 01/09/22 INFORMATION SOURCE (unrecogn ized section and content) DATE CREATED AUTHOR 02/14/[address] [facility] DATE CREATED AUTHOR AUTHOR'S ORGANIZ ATION 09/01/2023 [facility] DATE CREATED AUTHOR AUTHOR'S ORGANIZ ATION 12/24/2023 [facility] DATE CREATED AUTHOR AUTHOR'S ORGANIZ ATION 02/10/2024 [facility] FOR RECORDS PERTAINING TO PATIENTS WHO ARE OR HAVE BEEN ENROLLED IN A CHEMICAL DEPENDENCY/SUBSTANCEABUSE PROGRAM, SOME INFORMATION MAY BE OMITTED. This clinical summary was aggregated from multiple sources. Caution should be exercised in using it in the provision of clinical care. This summary normalizes information from multiple sources, and as a consequence, information in this document may materially change the coding, format and clinical context of patient data. In addition, data may be omitted in some cases. CLINICAL DECISIONS SHOULD BE BASED ON THE PRIMARY CLINICAL RECORDS. [facility]. provides no warranty or guarantee of the accuracy or completeness of information in this document.
[2024-08-06 08:37] LABS: ALB/GLOB Ratio 1.1 RATIO (0.9-2.4); AST(SGOT) 15 U/L (15-37); Alanine Aminotransfer ALT/SGPT 16 U/L (13-56); Alkaline Phosphatase 84 U/L (45-117); Anion Gap 4 (5-15); BUN 18 mg/dL (7-18); BUN/Creat Ratio 18.1 RATIO (10-20); Calcium,Total 9.5 mg/dL (8.5-10.1); Chloride 108 mmol/L (98-107); Creatinine, Serum 0.99 mg/dL (0.55-1.02); EST Glomerular Filtration Rate 58 mL/min (>60); Est Glom Filt Rate - Afr Amer 70 mL/min (>60); Globulin 3.8 g/dL (2.2-4.2); Glucose 90 mg/dL (74-106); Potassium 4.1 mmol/L (3.5-5.1); Protein, Total 7.8 g/dL (6.4-8.2); Sodium Level 139 mmol/L (136-145)
[2024-08-08 09:30] LABS: Hepatitis C Antibody Non-Reactive (Nonreactive)
== END | disposition home or self-care (01) ==
PROVIDERS: PCP Nurse Practitioner Family; Referring Provider Internal Medicine Endocrinology, Diabetes & Metabolism; Visit Provider Internal Medicine Endocrinology, Diabetes & Metabolism
DX: Z11.59 Encounter for screening for other viral diseases (principal); E89.0 Postprocedural hypothyroidism
CPT/HCPCS: 36415; 80053; 84443; 86803

== ENCOUNTER 2024-08-16 13:00 | Outpatient (RCR) | payer MEDICARE, OTHER, SELFPAY ==
--- NOTE | 2024-07-20 13:57 | HP.PTEVAL_ITS ---
Patient's Visit Information Visit Information Visit Information: CARMEN GARCIA is a 74 year old F referred to Physical Therapy by Dr. Edvin Armijo MD with a diagnosis of L hip pain, LBP. Date of Evaluation: 07/20/24 Physical Therapist: Neftali Mcpherson, TRAVIST, OCS, CSCS Visit Plan Frequency: 2x /Week Duration: 4-6 Weeks Plan: 2x/week for 4-6 weeks for 1. please teach general overall home based strength ex with pics for core, legs, posture, back and joint ROM and work to I with pics. Include some dynamic balance with bending and turning and multi tasking. IE: HEP Educate on HEP of laq, slouch-overcorrect and seated marching and frequent short walks throughout day. Subjective Subjective: Lb and leg pain with standing and walking. Been there for a year or so. Not sure why it started. Back aches most of time dull. Night twitching sometimes and hard to get comfortable. Gets about 6 hours of sleep. No numbness or tingling. Comfortable at rest. Walking it starts aching in short order. Not employed, retired. Spends day: sitting more than she should, can get housework done, steps to basement with railing does 3x and fatigues quickly. Fatigued. No regular exercises, used to go to [employer] weekly but not lately due to hips and back. Walking made it ache. Basic ADLs: dresses self, bathroom I, shower I in walk in shower. hobbies: bingo. Pain LBP: Pain Intensity (Out of 10): 0 Pain Intensity Range: 0 and 3 Comment: 0 at rest. B leg pain: Pain Intensity (Out of 10): 0 Pain Intensity Range: 0 and 3 Objective Objective: Flat affect on face but friendly. [place] with short steps and stiff spine but I without AD. Good balance. Trasnfers chair with UE and can do without. Stpes reciprocal with one rail. bed trasnfer is I. cervical aROM 40 rotations, UE AROM to 100 on her own but can get higher with cues. LE AROM hips ext 5 B, abd 14 B, flexion 100 B, er 45 and ir 5 R with pain and 7 L. + FADDIR on R and - VELIA B. - slump and - SLR. HS tightness and quad tightness obvious with movements and -30 90/90 test. reflexes 2/3 patella adn achilles B. sensation LE WNL to gross light touch. [id number] hips 3/5 abd and ext adn rotations, flexion 3+ B, knee ext and flexion 4-, ankles 4- all B. Slow movement of all joints and tends to sit still and walk stiff. LB AROM ext mod limited and flexion min limited and SB B mod limited, no pain. Balance/Special Test Scores Functional Gait Assessment Score: 24 % Disability: 20.0000 Oswestry Low Back Score: 5 Goals Goal 1:: I appropriate HEP for home based postural, shoulder ROM, hip and core strength and general strength to I Goal Time Frame: 4-6 Weeks Goal 2:: Pt feel 50% better in overall mobility and achiness to 2/10 at worst Goal Time Frame: 4-6 Weeks Goal 3:: wake up in am without achiness. Goal Time Frame: 4-6 Weeks Goal 4:: return to [employer] law Goal Time Frame: 4-6 Weeks Rehabilitation Potential Physical Therapy Diagnosis: stiffness and diminished ROM and strength limiting funciton. Rehabilitation Potential: Good Anticipated Interventions Patient/Client Instruction: Educate patient on: Condition and Plan of Care For the Purpose of:: To decrease pain, To increase ROM, To improve nutrient delivery to tissue, To improve muscle performance and motor function and To improve gait and locomotor functions Therapeutic Exercise to Include: Strength training, Flexibilty training, Gait and locomotor training, Passive ROM and Active ROM For the Purpose of:: To decrease pain, To increase ROM, To improve nutrient delivery to tissue, To improve muscle performance and motor function and To improve gait and locomotor functions Thermo therapy (hot pack): Yes For the Purpose of:: To decrease pain Text: Thank you for the opportunity to evaluate your patient. For Medicare and Medicare HMO plans, please review the plan of care and approve it. It will need to be FAXED BACK to us at [phone] for Medicare purposes. For Medicare only, by signing this I certify the plan of care. Please let me know if there are questions or concerns regarding this plan of care. Physician Signature: Date:
--- NOTE | 2024-08-16 13:23 | HP.PTDCSUM ---
Discharge Summary D/C summary: It has been my pleasure to treat CARMEN GARCIA referred by Dr. Edvin Armijo MD, with the diagnosis of L hip pain, LBP for a total of 8 visit(s). Discharge Date: 08/16/24 Please see the following information for a summary of their discharge status. Subjective Subjective: back and hips killing me last week and saw chiropractor. Exercises seem to help at home adn in clinic. it loosens up. not much pain just gets achy. Sitting too long in hard chair is agitating or standing too long. Sleep is not great but not due to pain. Mowed lawn and will do it again this year. To Dr. Armijo. Feels like she can take it from here. Pain LBP: Pain Intensity (Out of 10): 0 B leg pain: Pain Intensity (Out of 10): 0 Overall Improvement % Improvement: 80 Objective Objective/Function: Good gait today with symmetrical step length and steps reciprocal with one rail and no pain. LB AROM is WFL adn without pain, just a little stiff. Goals Goal 1:: I appropriate HEP for home based postural, shoulder ROM, hip and core strength and general strength to I Goal Progress: Goal Met Goal 2:: Pt feel 50% better in overall mobility and achiness to 2/10 at worst Goal Progress: 80 Goal 3:: wake up in am without achiness. Goal Progress: Goal Met Goal 4:: return to [employer] law Goal Progress: Goal Met Plan Plan: d/c pt request. D/C Information d/c sentence: If there are questions or concerns regarding this patient's physical therapy, please feel free to call me at [phone]. Thank you for the referral of this patient. Sincerely, Neftali Mcpherson, DPT, OCS, CSCS Balance/Gait/Functional tests Balance/Special Test Scores Functional Gait Assessment Score: 24 % Disability: 20.0000 Oswestry Low Back Score: 3 Improvement % Improvement: 80
== END 2024-08-16 19:00 | disposition home or self-care (01) ==
LOC: PT 13:00
PROVIDERS: PCP Nurse Practitioner Family; Referring Provider Psychiatry & Neurology Neurology; Visit Provider Psychiatry & Neurology Neurology
DX: M54.50 Low back pain, unspecified (principal); M25.552 Pain in left hip; G20.A1 Parkinson's disease without dyskinesia, without mention of fluctuations
CPT/HCPCS: 97110; 97162; 97164

== ENCOUNTER 2024-10-17 13:00 | Outpatient (RCR) | payer MEDICARE, OTHER, SELFPAY ==
--- NOTE | 2024-09-14 15:53 | HP.PTEVAL_ITS ---
Patient's Visit Information Visit Information Visit Information: CARMEN GARCIA is a 74 year old F referred to Physical Therapy by VALENTIN San with a diagnosis of Quad muscle strain and R hip pain. Date of Evaluation: 09/14/24 Physical Therapist: DEYVI Shields Visit Plan Frequency: 2x /Week Duration: 4 Weeks Plan: 2X/ week for 4 weeks for stretching of the R hip flexor/Quad, hip ext ROM, core stability and hip strength, gait training, stairs with HEP HEP: LTR, Supine B QS, bridges Subjective Subjective: Thursday before her dog was getting sick in her cage and she jumped out of bed before stretching. She pulled something and could hardly walk within a day. She reports that her Dr said it was her Quad muscle. [facility] because she [facility] and they gave her prednisone and today is her last day of it. Thursday she was bringing her dog in and she went to go up a step with her R leg and it gave out and fell back onto the cement and could not get up. She went to her regular Dr on Thursday and used Tylenol through the Holiday. The day after she could walk a little bit because if she stood up it would stretch the R muscle. She went to a chiropractor and he stretched out her R Quad and back and could hardly get off the table. Now she is better and can walk straight up. Now she has a little numbness around the knee cap on the outside. She could not reach up over shoulders but now she can. The last 2 nights she can roll over onto her side. Hip x-rays were ok. She is able to drive ok as she has no pain with sitting. Pain R hip pain: Pain Intensity (Out of 10): 1 Pain Intensity Range: 1 Comment: with walking Objective Objective: Gait: walks with decrease stance time on the R LE. She feels like she is dragging the R leg LE MMT: R hip flex 9.5 and L 13.4 R knee ext 25.2 and L 23.4 R knee flex 15.2 and L 13.5 R hip abd in supine 15.4 and L 11.9 Bridge 1/2 normal ROM Heel and toe raises: She is able to heel and toe raises B with 1 hand on the mcclellan rail Tight HS B. Tight piriformis on the R more than the L. Hip PROM: Pt had no pain with hip flexion, IR/ER of the R leg but just felt a pulling Palpation: no tenderness along the R Quad muscle belly LTR: decreased ROM and tenderness with knees going to the L Balance/Special Test Scores Lower Extremity Functional Score: 63 Goals Goal 1:: I HEP Goal Time Frame: 6-8 Weeks Goal 2:: Be able to go up and down steps recip with handrails with no hesitation, pain, or weakness Goal Time Frame: 6-8 Weeks Goal 3:: Increase hip strength: (At time of the eval: R hip flex 9.5 and L 13.4 R knee ext 25.2 and L 23.4 R knee flex 15.2 and L 13.5 R hip abd in supine 15.4 and L 11.9) Goal Time Frame: 6-8 Weeks Goal 4:: Be able to walk with no antalgic gait Goal Time Frame: 6-8 Weeks Rehabilitation Potential Rehabilitation Potential: Good Anticipated Interventions Patient/Client Instruction: Educate patient on: Condition and Plan of Care For the Purpose of:: To decrease pain, To increase ROM, To improve nutrient delivery to tissue, To improve muscle performance and motor function, To improve ability to perform ADL's, To increase tolerance to activity/condition/position, To improve performance and independence with ADL's, To decrease level of supervision to perform tasks, To improve ability of physical actions for home/community/work/leisure, To improve gait and locomotor functions, To improve health of tissue, To decrease soft tissue restriction, To increase flexibility/ROM, To improve endurance and To improve balance Therapeutic Exercise to Include: Strength training, Endurance training, Balance training, Body mechanics, Postural training, Flexibilty training, Gait and locomotor training, Neuromotor development, Passive ROM, Active ROM and Dynamic Lumbar Stabilization For the Purpose of:: To decrease pain, To decrease swelling/inflammation, To increase ROM, To improve nutrient delivery to tissue, To improve muscle performance and motor function, To improve ability to perform ADL's, To increase tolerance to activity/condition/position, To improve performance and independence with ADL's, To decrease level of supervision to perform tasks, To improve ability of physical actions for home/community/work/leisure, To improve gait and locomotor functions, To improve health of tissue, To decrease soft tissue restriction, To increase flexibility/ROM, To improve endurance, To improve balance and To improve safety with gait Functional Training to Include: Gait training For the Purpose of:: To improve gait and locomotor functions and To improve safety with gait Manual Therapy Techniques to Include: Passive ROM and Soft tissue mobilization For the Purpose of:: To decrease pain, To increase ROM, To improve muscle performance and motor function, To improve ability to perform ADL's, To increase tolerance to activity/condition/position, To improve performance and independence with ADL's, To decrease level of supervision to perform tasks, To improve gait and locomotor functions, To improve health of tissue, To decrease soft tissue restriction and To increase flexibility/ROM Text: Thank you for the opportunity to evaluate your patient. For Medicare and Medicare HMO plans, please review the plan of care and approve it. It will need to be FAXED BACK to us at [phone] for Medicare purposes. For Medicare only, by signing this I certify the plan of care. Please let me know if there are questions or concerns regarding this plan of care. Physician Signature : Date:
--- NOTE | 2024-10-17 13:31 | HP.PTDCSUM ---
Discharge Summary D/C summary: It has been my pleasure to treat CARMEN GARCIA referred by Zaynab Mcpherson NP-C, with the diagnosis of Quad muscle strain and R hip pain for a total of 10 visit(s). Discharge Date: 10/17/24 Please see the following information for a summary of their discharge status. Subjective Subjective: Pt has no pain. She gets achy sometimes but not a pain. She is doing her Home exercises. Pt asking about exercises and will try now to do them every other day. She has moved her washer and dryer upstairs and that is safer and nicer. She still feels that her R hip might get a little tight at times but walking with a cane helps keep her straight. Pain R hip pain: Pain Intensity (Out of 10): 0 Overall Improvement % Improvement: 80 Objective Objective/Function: Gait: walk with slight veering and slightly decreased step length. R hip flex 12.9 and L 13.4 R knee ext 25.2 and L 23.4 R knee flex 15.2 and L 13.5 R hip abd in supine 15.4 and L 11.9) Stairs: Up and down recip with 2 handrails with SBA Goals Goal 1:: I HEP Goal Progress: Goal Met Goal 2:: Be able to go up and down steps recip with handrails with no hesitation, pain, or weakness Goal Progress: Goal Met Goal 3:: Increase hip strength: (At time of the eval: R hip flex 9.5 and L 13.4 R knee ext 25.2 and L 23.4 R knee flex 15.2 and L 13.5 R hip abd in supine 15.4 and L 11.9) Goal Progress: Goal Met Goal 4:: Be able to walk with no antalgic gait Goal Progress: Goal Met Plan Plan: DC PT to HEP D/C Information Discharge Comments: DC PT to HEP d/c sentence: If there are questions or concerns regarding this patient's physical therapy, please feel free to call me at [phone]. Thank you for the referral of this patient. Sincerely, Patsy John, MPT Balance/Gait/Functional tests Balance/Special Test Scores Lower Extremity Functional Score: 61 Improvement % Improvement: 80
== END 2024-10-17 13:50 | disposition home or self-care (01) ==
LOC: PT 13:00
PROVIDERS: PCP Nurse Practitioner Family; Referring Provider Nurse Practitioner Family; Visit Provider Nurse Practitioner Family
DX: S76.119D Strain of unspecified quadriceps muscle, fascia and tendon, subsequent encounter (principal); M25.551 Pain in right hip
CPT/HCPCS: 97110; 97161

== ENCOUNTER → 2024-11-07 | Outpatient (CLI) | payer MEDICARE, OTHER, SELFPAY ==
--- NOTE | 2024-11-07 15:18 | RAD_ITS ---
STUDY: X-RAY - LEFT SHOULDER REASON FOR EXAM: Female, 74 years old. Left shoulder pain. TECHNIQUE: 4 views of the left shoulder. COMPARISON: None. FINDINGS: There is mild glenohumeral arthrosis. There is mild acromioclavicular arthrosis. Normal acromion. Normal humeral head and visualized proximal humerus. The soft tissue structures are unremarkable. There is no demonstrated fracture. Normal visualized pulmonary apex. RAD/Shoulder min 2 Views IMPRESSION: Mild glenohumeral arthrosis and mild acromioclavicular arthrosis. No demonstrated fracture. Electronically Signed: John Weinberg MD at 13:25 EST ,
== END | disposition home or self-care (01) ==
LOC: MTRAD 15:18
PROVIDERS: PCP Nurse Practitioner Family; Referring Provider Psychiatry & Neurology Neurology; Visit Provider Psychiatry & Neurology Neurology
DX: M25.512 Pain in left shoulder (principal)
CPT/HCPCS: 73030

== ENCOUNTER 2025-01-04 12:00 | Outpatient (RCR) | payer MEDICARE, OTHER, SELFPAY ==
--- NOTE | 2024-12-12 12:30 | HP.PTEVAL ---
Patient's Visit Information Visit Information Visit Information: CARMEN GARCIA is a 74 year old F referred to Physical Therapy by Dr. Edvin Armijo MD with a diagnosis of L shoulder pain. Date of Evaluation: 12/12/24 Physical Therapist: DEYVI Shields Visit Plan Frequency: 2x /Week Duration: 2 Months Plan: 2X/ week for 8 weeks for L shoulder PROM, AAROM, AROM, scapular and RC strength with HEP HEP: supine wand flex, standing wand ER and Wand shoulder extension Subjective Subjective: Pt reports that the x-rays show L shoulder has arthritis. She has been noticing L shoulder pain for some time and not getting any better so she decided to get it looked at. said to do PT. She can do things waist high but trying to do her hair or lift her arm up she can not. It is limited to reach for something in the fridge or reach out across the end table. Getting dressed is also an issue. She has no N&T. She does have neck stiffness. She does have PD. She has pain on the front of her shoulder and feels it is in the muscle as well as the joint. Doing everyday things is fine cause she uses her R arm. Pt is R handed. She can not lay on the L shoulder for very long. 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 L shoulder able to get to approx 70 degrees flexion, 90 degrees ABD Balance/Special Test Scores Quick DASH Score: 31.8175 Goals Goal 1:: I HEP Goal Time Frame: 6-8 Weeks Goal 2:: Increase L shoulder AROM (at the time of the eval: UE AROM: R shoulder flexion 140 and L 61 R shoulder abd 130 and L 54 R shoulder IR L1 and L PSIS R shoulder ER 71 and L 50) Goal Time Frame: 6-8 Weeks Goal 3:: Be able to use her L shoulder with her ADL's without pain Goal Time Frame: 6-8 Weeks Goal 4:: Increase L shoulder strength (at the time of the eval: UE MMT R shoulder flexion 5.2 and L 2.1 R shoulder ABD 5.3 and L 1.2 R shoulder IR 6.4 and L 4.6 R shoulder ER 7.1 and L 6.6). Rehabilitation Potential Rehabilitation Potential: Good Anticipated Interventions Patient/Client Instruction: Educate patient on: Condition and Plan of Care For the Purpose of:: To decrease pain, To decrease swelling/inflammation, To increase ROM, To improve nutrient delivery to tissue, To improve muscle performance and motor function, To improve ability to perform ADL's, To increase tolerance to activity/condition/position, To improve performance and independence with ADL's, To decrease level of supervision to perform tasks, To improve gait and locomotor functions, To improve health of tissue, To decrease soft tissue restriction, To increase flexibility/ROM, To improve endurance, To improve balance and To improve safety with gait Therapeutic Exercise to Include: Strength training, Endurance training, Postural training, Flexibilty training, Passive ROM, Active ROM and Scapular Strength/Stabilization For the Purpose of:: To decrease pain, To increase ROM, To improve nutrient delivery to tissue, To improve muscle performance and motor function, To improve ability to perform ADL's, To increase tolerance to activity/condition/position, To improve performance and independence with ADL's, To decrease level of supervision to perform tasks, To improve ability of physical actions for home/community/work/leisure, To improve health of tissue, To decrease soft tissue restriction and To increase flexibility/ROM Manual Therapy Techniques to Include: Passive ROM For the Purpose of:: To decrease pain, To increase ROM, To improve muscle performance and motor function, To improve ability to perform ADL's, To increase tolerance to activity/condition/position, To decrease soft tissue restriction and To increase flexibility/ROM Cryotherapy (ice pack, ice massage): Yes Thermo therapy (hot pack): Yes For the Purpose of:: To decrease pain, To increase ROM and To improve nutrient delivery to tissue Text: Thank you for the opportunity to evaluate your patient. For Medicare and Medicare HMO plans, please review the plan of care and approve it. It will need to be FAXED BACK to us at [phone] for Medicare purposes. For Medicare only, by signing this I certify the plan of care. Please let me know if there are questions or concerns regarding this plan of care. Physician Signature: Date:
--- NOTE | 2025-01-04 12:32 | HP.PTDCSUM ---
Discharge Summary D/C summary: It has been my pleasure to treat CARMEN GARCIA referred by Dr. Edvin Armijo MD, with the diagnosis of L shoulder pain for a total of 8 visit(s). Discharge Date: 01/04/25 Please see the following information for a summary of their discharge status. Subjective Subjective: Pt reports that she is better but she still feels that she has room to grow. She has some pain with laying on it and she is stiff in her shoulder in the morning. She feels that she has enough exercises to do at home. Pain L shoulder pain: Pain Intensity (Out of 10): 0 Overall Improvement % Improvement: 50 Objective Objective/Function: Improved overall L shoulder AROM and strength with results below UE AROM: R shoulder flexion 140 and L 115 R shoulder abd 130 and L 79 R shoulder IR L1 and L PSIS R shoulder ER 71 and L 50) UE MMT R shoulder flexion 5.2 and L 7.6 R shoulder ABD 5.3 and L 6 R shoulder IR 6.4 and L 8.1 R shoulder ER 7.1 and L 9.1. Goals Goal 1:: I HEP Goal Progress: Goal Met Goal 2:: Increase L shoulder AROM (at the time of the eval: UE AROM: R shoulder flexion 140 and L 61 R shoulder abd 130 and L 54 R shoulder IR L1 and L PSIS R shoulder ER 71 and L 50) Goal Progress: Goal Met Goal 3:: Be able to use her L shoulder with her ADL's without pain Goal Progress: Progressing Goal 4:: Increase L shoulder strength (at the time of the eval: UE MMT R shoulder flexion 5.2 and L 2.1 R shoulder ABD 5.3 and L 1.2 R shoulder IR 6.4 and L 4.6 R shoulder ER 7.1 and L 6.6). Goal Progress: Goal Met Plan Plan: DC PT to indep HEP D/C Information Discharge Comments: DC PT to indep HEP d/c sentence: If there are questions or concerns regarding this patient's physical therapy, please feel free to call me at [phone]. Thank you for the referral of this patient. Sincerely, Patsy John, MPT Balance/Gait/Functional tests Balance/Special Test Scores Quick DASH Score: 18.1800 Improvement % Improvement: 50
== END 2025-01-04 19:00 | disposition home or self-care (01) ==
LOC: PT 12:00
PROVIDERS: PCP Nurse Practitioner Family; Visit Provider Psychiatry & Neurology Neurology
DX: M25.512 Pain in left shoulder (principal)
CPT/HCPCS: 97110; 97162; 97530

== ENCOUNTER → 2025-03-15 | Outpatient (CLI) | payer MEDICARE, OTHER, SELFPAY ==
--- OUTSIDE RECORDS SUMMARY | 2025-03-15 06:41 | XMS RPT_ITS | CCD ---
Author Organization [facility] Care Team Providers Care Tour Conductor Name Role Phone Sushma Mueller Unavailable Alan Sánchez Unavailable Fast, Cassandra A Unavailable DO NOT USE Unavailable [facility] Unavailable [phone] Slajeny, Patsy Unavailable Unavailable Latasha Disla Unavailable Unavailable Candi Meehan Unavailable Unavailable Unavailable Unavailable Srikanth Mcgrath Unavailable Unavailable Severo Hudson Unavailable [phone] Srikanth Mcgrath Unavailable Unavailable Erica Live Unavailable Unavailable Vikash Avila Unavailable Latasha Disla Unavailable Unavailable Unavailable Unavailable Virginia Walker Unavailable Unavailable Vikash Avila Unavailable Srikanth Bennett Unavailable Unavailable Arti Webb Unavailable Severo Hudson Unavailable [phone] Sushma Mueller CNP Unavailable Alan Sánchez Unavailable Austin RICH, Dr. Vikash Ramirez Unavailable Arti Webb Unavailable Fast DO, Cassandra A Unavailable Severo Hudson MD Unavailable DO NOT USE Unavailable [facility] Unavailable Srikanth Bennett LPN Unavailable Unavailable Katelyn Mason LPN Unavailable Unavailable Slarb IVETTE Patsy Unavailable Unavailable Latasha Disla RN Unavailable Unavailable Unavailable Unavailable Dr. Damian Hartmann Unavailable Calos GOULDN, Erica Unavailable Unavailable Tristan RICH, Severo Mclaughlin Unavailable Alcides STEELE, Srikanth Unavailable Unavailable Aaron RUBIO, Virginia Unavailable Unavailable Ciesa SHELIA, Hallie Primary Care Provider Wietemichael NANCE, Julián G Unavailable Edvin Armijo MD Unavailable Ciinés Sushma Unavailable Cijesseniaa, Sushma [facility]LE [facility] Joanie Unavailable Unavailable Fast DO, Cassandra A Unavailable Unavailable Unavailable Ciesa LEAD INGOT MOLDER, LEAD INGOT MOLDER-C Sushma Primary Care Provider Ciinés LEAD INGOT MOLDER, LEAD INGOT MOLDER-C Sushma Referring Provider Dr. Edvin Armijo Attending Provider [place] HAND TILE MAKER, Kayela Unavailable Unavailable Malaika Navarro MA Unavailable Unavailable Cindy Mcpherson CNP Unavailable Ciesa SHELIA, Hallie Primary Care Provider Wietemichael NANCE, Julián G Unavailable Edvin Armijo MD Unavailable Fast DO, Cassandra A Unavailable Keishasavanna Sushma Attending Unavailable Fast DO, Cassandra A Referring Unavailable KeishaaSushma Consulting Unavailable Ky, OLIVE-C Cindy Primary Care Provider OLIVE Mcpherson-C Cindy Referring Provider Dr. Edvin Armijo Attending Provider CINDY MADRID Primary Care Physician DR DAMIAN HARTMANN MD [facility] [place] ANDERSON-CINDY BASS Primary Care Unavail able WieteHam rodriguez DOin G Unavailable Edvin Armijo MD Unavailable Unava ilable [place] PAID SEARCH MARKETING STRATEGIST, Cindy Primary Care Provider [place], LEAD INGOT MOLDER-C Cindy Primary Care Provider [place], LEAD INGOT MOLDER-C Cindy Referring Provider Dr. Edvin Armijo Attending Provider Edvin Armijo MD Unavailable [place] PAID SEARCH MARKETING STRATEGIST, Cindy Primary Care Provider MARICRUZ ARMSTRONG Attending Unavailable [place], CINDY Primary Care Unavailable [place], CINDY Primary Care Unavailable VIOLA MOSS Referring Unavailable [place] LEAD INGOT MOLDER-C, Cindy Primary Care Provider [place] LEAD INGOT MOLDER-C, Cindy Attending Provider [place] LEAD INGOT MOLDER-C, Cindy Referring Provider Dr. Edvin Armijo MD Attending Provider [phone] Dr. Edvin Armijo MD Referring Provider Ky, Cindy Primary Care Unavailable Edvin Armijo Attending Unavailable Ky, Cindy Referring Unavailable Ky, Cindy Primary Care Unavailable Ky, Cindy Attending Unavailable Ky, Cindy Referring Unavailable Ky, Cindy Primary Care Unavailable Edvin Armijo Attending Unavailable Edvin Armijo Referring Unavailable Ky, Cindy Primary Care Unavailable Edvin Armijo Attending Unavailable Edvin Armijo Referring Unavailable Edvin Armijo Attending Unavailable Ky, Cindy Primary Care Unavailable Edvin Armijo Attending Unavailable Edvin Armijo Referring Unavailable Ky, Cindy Primary Care Unavailable Ky, Cindy Attending Unavailable Ky, Cindy Referring Unavailable Ky, Cindy Primary Care Unavailable Ky, Cindy Primary Care Unavailable Jerzy, Aurelio Attending Unavailable Ky, Cindy Primary Care Unavailable Roof Ramon SCHAEFER Attending Unavailable Ky, Cindy Referring Unavailable Jerzy, [place] Attending Unavailable Ky, Cindy Primary Care Unavailable BaddourEdvin Attending Unavailable Ky, Cindy Referring Unavailable Ky, Cindy Primary Care Unavailable Ky, Cindy Primary Care Unavailable Julián Weinstein Attending Unavailable Julián Weinstein Referring Unavailable Ky, Cindy Consulting Unavailable Allergies Allergy Classification Reported Allergen(s) Allergy [...] Comment on above: chest pain and head (12 sources) Codeine; Translations: [CODEINE] Drug Allergy 0 Unknown [facility] Comment on above: headache (6 sources) rOPINIRole Drug Allergy 2 [facility] Comment on above: Problems with eyes a nd muscles (1 source) Bleach Allergy to substance tightness of throat [facility] (2 sources) atorvastatin; Translations: [ATORVASTATIN] Drug Allergy 0 [facility] (2 sources) ezetimibe; Translations: [EZETIMIBE] Drug Allergy 0 [facility] (2 sources) rosuvastatin; Translations: [ROSUVASTATIN] Drug Allergy 0 [facility] (1 source) Codeine Drug Allergy 5 [facility] (1 source) rOPINIRole Drug Allergy 5 [facility] Medications Current Medications Medication Drug Class(es) [...] Aggregation Inhibitor, Nonsteroidal Anti-inflammatory Drug Start: 04-27-2013 take 1 tablet by mouth once daily Aspirin 81 mg tablet,delayed release (DR/EC) Active 81 mg PO DAILY May 05, 2019 12:00am Comment on above: Take 81 mg by mouth once daily. calcium ascorbate 500 mg oral tablet (3 sources) Start: 10-07-2022 take 1 g by mouth once daily Ascorbate Calcium (Vitamin C) 500 mg tablet Active 1 g PO DAILY October 07, 2022 1:00am Start: 10-07-2022 take 1 g by mouth once daily A scorbate Calcium (Vitamin C) Active 1 GM PO DAILY October 07, 2022 1:00am Calcium Carb, Citrate-Vit D3 (Citracal-D3 Slow Release) 600 mg calcium- 500 unit tablet extended release (1 source) Start: 08-23-2020 Calcium Carb, Citrate-Vit D3 (Citracal-D3 Slow Release) 600 mg calcium- 500 unit tablet extended release Active 1 {tbl} PO DAILY August 23, 2020 1:00am calcium carb,cit ER 600 mg calcium-vit D3 500 unit tablet,ext.release (5 sources) Start: 08-23-2020 take 1 tablet by mouth once daily calcium carb,cit ER 600 mg calcium-vit D3 500 unit tablet,ext.release Active 1 TABLET PO DAILY August 23, 2020 1:00am calcium citrate 500 mg oral tablet (1 source) Start: 08-21-2023 take 1 tablet by mouth twice daily Citracal 500 mg oral tablet Dose : 500 mg =, Oral, BID, 0 Refill(s) Start Date: 08/21/23 Status: Ordered carbidopa 25 mg / levodopa 100 mg oral tablet (20 sources) Aromatic Amino Acid Decarboxylation Inhibitor, Aromatic Amino Acid Start: 10-07-2022 End: 06-21-2024 Carbidopa-Levodopa 25-100 mg tablet Active 2 {tbl} PO THREE TIMES A DAY 540 June 21, 2024 1:27pm Start: 10-07-2022 End: 12-21-2023 take 2 tablets by mouth three times daily Carbidopa-Levodopa Discontinued 2 TABLET PO THREE TIMES A DAY 540 December 21, 2023 1:17pm December 21, 2023 1:22pm Start: 05-06-2022 End: 10-07-2022 Carbidopa-Levodopa 25-100 mg tablet Discontinued 1 {tbl} PO .QID 360 May 16, 2022 2:52pm October 07, 2022 3:13pm Start: 05-06-2022 End: 10-07-2022 take 1 tablet by mouth four times daily Carbidopa-Levodopa Discontinued 1 TABLET PO .QID 360 May 16, 2022 2:52pm October 07, 2022 3:13pm Start: 04-29-2021 Start: 04-19-2020 End: 05-06-2022 take 1 tablet by mouth three times daily Carbidopa-Levodopa Discontinued 1 TABLET PO THREE TIMES A DAY 270 January 16, 2022 4:28pm May 06, 2022 12:06pm 10am, 4pm, 10pm Start: 04-18-2020 End: 04-19-2020 take 1 tablet by mouth at bedtime Carbidopa-Levodopa Discontinued 1 TABLET PO AT BEDTIME April 18, 2020 12:00am April 19, 2020 11:11am Start: 10-21-2019 End: 05-06-2022 Carbidopa-Levodopa 25-100 mg tablet Discontinued 1 {tbl} PO THREE TIMES A DAY 270 January 16, 2022 4:28pm May 06, 2022 12:06pm 10am, 4pm, 10pm Start: 10-14-2019 End: 04-19-2020 Carbidopa-Levodopa 25-100 mg tablet Discontinued 1 {tbl} PO AT BEDTIME April 18, 2020 12:00am April 19, 2020 11:11am Comment on above: rx by Car[facility] Take 1 tablet by ailin th three times daily. celecoxib 100 mg oral capsule (2 sources) Nonsteroidal Anti-inflammatory Drug Start: 11-23-2024 take 1 capsule by mouth twice daily as needed for pain Celecoxib 100 mg capsule Active 100 mg PO TWICE A DAY as needed for pain 60 November 23, 2024 5:30pm Start: 06-27-2024 End: 11-07-2024 take 1 capsule by mouth twice daily as needed for pain Celecoxib 100 mg capsule Discontinued 100 mg PO TWICE A DAY as needed for pain 60 June 27, 2024 12:00am November 07, 2024 4:04pm cholecalciferol 1.25 mg oral capsule (20 sources) Vitamin D Start: 10-31-2021 take 1 capsule by mouth once Cholecalciferol (Vitamin D3) 1,250 mcg (50,000 unit) capsule Active 29559 U PO .2x/month October 31, 2021 12:36pm Start: 05-05-2019 End: 10-31-2021 take 1 capsule by mouth every week Cholecalciferol (Vitamin D3) 50,000 unit capsule Discontinued 61161 U PO EVERY WEEK May 05, 2019 12:00am October 31, 2021 12:37pm Start: 12-24-2012 End: 12-24-2012 Start: 12-24-2012 End: 12-24-2012 take 1 tablet by mouth once daily VITAMIN D3, 2000UNIT (Oral Tablet Chewable) 1 Tablet Chewable qd for 0 days Quantity: 30 {Tablet_Chewable} Refills: 0 Ordered: 24-Dec-2012 Cassandra Myers DO Start : 24-Dec-2012 End : 24-Dec-2012 Discontinued Disability Placard (3 sources) Start: 10-07-2022 Disability Evelyne card Active 0 .Route .MEDSUPPLY 1 October 07, 2022 1:00am Expiration: 10/07/2025 Fish Oils (1 source) Start: 04-27-2013 Fish Oil 1200 mg oral capsule Dose : 1,200 mg = 1 cap(s), Oral, Daily, 0 Refill(s) Start Date: 04/27/13 Status: Ordered Garlic (14 sources) Non-Standardized Food Allergenic Extract Start: 05-05-2019 take 1 capsule by mouth after mealtime as needed Garlic (Garlic Oil) 1,000 mg capsule Active 1000 mg PO after meals as needed May 05, 2019 12:00am Start: 05-05-2019 take 1 capsule by mo ut after mealtime Garlic (Garlic Oil) 1,000 mg capsule Active 1000 MG PO after meals May 05, 2019 12:00am Start: 08-07-2016 take 1 capsule by mouth once d aily Garlic Oil 1000 MG Oral Capsule 1 cap Capsule qd for 0 days Quantity: 30 {Capsule} Refills: 3 Ordered: 07-Aug-2016 Sage Morales MD Start : 07-Aug-2016 Active Start: 04-27-2013 take 1 capsule by mouth once d aily Garlic oral capsule 1 cap(s), Oral, Daily, 0 Refill(s) Start Date: 04/27/13 Status: Ordered take 1 capsule by mouth once sophia ly Garlic (GARLIC OIL) 1,000 mg cap Take 1,000 mg by mouth once daily. 0 Active Comment on above: Take 1,000 mg by ailin once daily. levothyroxine sodium 0.125 mg oral tablet (20 sources) l-Thyroxine Start: 08-21-2023 levothyroxine 125 mcg (0.125 mg) oral tablet Dose : 125 mcg = 1 tab(s), Oral, qDayAC, 0 Refill(s) Start Date: 08/21/23 Status: Ordered Start: 05-05-2019 [facility] 1 [facility] daily Levothyroxine 137 mcg capsule Active 137 ug PO DAILY May 05, 2019 12:00am Start: 08-21-2017 Start: 08-21-2017 Comment on above: [...] on above: Take 1 tablet by ailin DAILY (6 AM). magnesium oxide 500 mg oral capsule (20 sources) Start: 0 take 1 capsule by mouth once daily Magnesium Oxide 500 mg capsule Active 500 mg PO DAILY April 18, 2020 12:00am Comment on above: Take 500 mg by mouth once daily. mecobalamin 1 mg chewable tablet (11 sources) Start: 04-18-2020 mecobalamin, vitamin B12, 1,000 mcg chew mecobalamin Mecobalamin (B12 Active) 1,000 mcg tablet,chewable Active 100 MCG PO DAILY April 18, 2020 9:41am 04-18-2020 [facility] ([id number]) 0 04/18/2020 Active Start: 04-18-2020 take 100 ug by mouth once ignacia y Mecobalamin (Vitamin B12) Active 100 MCG PO DAILY April 18, 2020 12:00am Comment on above: mecobalamin Mecobala min (B12 Active) 1,000 mcg tablet,chewable Active 100 MCG PO DAILY April 18, 2020 9:41am 04-18-2020 [facility] ([id number]) metoprolol tartrate 50 mg oral tablet (20 sources) beta-Adrenergic Jordana Start: 10-14-19 End: 01-16-20 metoprolol tartrate, short acting, (LOPRESSOR) 50 mg tablet Take 50 mg by mouth. 0 10/14/2019 Active Comment on above: Take 50 mg by mouth. [place]-3 Fatty Acids (5 sources) Start: 04-18-20 20 take 1000 mg by mouth once daily [place]-3 Fatty Acids Active 1000 MG PO DAILY April 18, 2020 12:00am omega-3 fatty acids 1,000 mg cap (5 sources) take 1 capsule by mouth once daily omega-3 fatty acids 1,000 mg cap Take 1,000 mg by mouth once daily. 0 Active Comment on above: Take 1,000 mg by ailin th once daily. [place]-3 Fatty Acids 1,000 mg capsule (1 source) Start: 04-18-20 20 take 1 capsule by mouth once daily [place]-3 Fatty Acids 1,000 mg capsule Active 1000 mg PO DAILY April 18, 2020 12:00am rOPINIRole 0.5 mg oral tablet (5 sources) Nonergot Dopamine Agonist Start: 08-19-20 19 take 1 tablet by mouth three times daily rOPINIRole (REQUIP) 0.5 mg tablet Take 1 tablet by mouth three times daily. 0 08/19/2019 Active Comment on above: Take 1 tablet by ailin th three times daily. Tens Unit And Electrodes (Icy Hot Smart Relief Tens) combo pack (6 sources) Start: 04-18-20 20 Tens Unit And Electrodes (Icy Hot Smart Relief Tens) combo pack Active 0 .ROUTE .MEDSUPPLY 1 April 18, 2020 12:00am As directed ubidecarenone 100 mg oral capsule (6 sources) Start: 04-25-20 21 take 10 capsules by mouth once daily Coenzyme Q10 100 mg capsule Active 100 mg PO DAILY April 25, 2021 12:00am Vitamin D3 1250 mcg (50,000 intl units) oral capsule (1 source) Start: 08-21-20 Vitamin D3 1250 mcg (50,000 intl units) oral capsule Dose : 1,250 mcg = 1 cap(s), Oral, qmonth, # 12 cap(s), 0 Refill(s) Start Date: 08/21/23 Status: Ordered Zinc (5 sources) ZINC ORAL Take b y mouth once daily. 0 Active Comment on above: Take by mouth once d aily. zinc acetate 50 mg oral capsule (6 sources) Start: 05-06-20 take 1 capsule by mouth twice daily Zinc Acetate 50 mg (zinc) capsule Active 50 mg PO TWICE A DAY May 06, 2022 12:00am Completed/Discontinued Medications Medication Drug Class(es) Dates Sig (Normalized) Sig (Original) [id number] 200 actuat albuterol 0.09 mg/actuat metered dose inhaler (20 sources) beta2-Adrenergic Agonist Start: 10-17-2011 End: 11-05-2011 Start: 10-17-2011 End: 11-05-2011 take 2 puff(s) by inhalation three times daily PROAIR HFA, 108 (90 Base)MCG/ACT (Inhalation Aerosol Solution) 2 (two) Puff(s) tid for 0 days Quantity: 1 {Aerosol_Soln} Refills: 0 Ordered: 05-Nov-2011 Nika Ricketts Start : 17-Oct-2011 End : 05-Nov-2011 Inactive allyl sulfide 1000 mg oral capsule (19 sources) Start: 08-07-2016 take 1 capsule by mouth once daily Garlic Oil 1000 MG Oral Capsule 1 cap Capsule qd for 0 days Quantity: 30 {Capsule} Refills: 3 Ordered: 07-Aug-2016 Sage Morales MD Start : 07-Aug-2016 Active ALPRAZolam 0.25 mg oral tablet (20 sources) Benzodiazepine Start: 01-11-2020 End: 04-29-2021 take 1 tablet by mouth every twelve hours as needed Alprazolam (Xanax) 0.25 mg tablet Discontinued 0.25 mg PO Q12H as needed April 18, 2020 12:00am August 23, 2020 2:28pm Start: 01-11-2020 End: 04-29-2021 Comment on above: Anxiety and depressi on [place] Anxiety amoxicillin 500 mg / clavulanate 125 mg oral tablet (20 sources) Penicillin-class Antibacterial Start: 10-08-2021 End: 10-18-2021 Start: 10-20-2016 End: 11-03-2016 Start: 10-20-2016 End: 11-03-2016 take 1 tablet by mouth twice daily Augmentin 875-125 MG Oral Tablet 1 Tablet bid for 14 days Quantity: 28 {Tablet} Refills: 0 Ordered: 20-Oct-2016 Ami BASS Hallie Ami BASS, Sushma Duong Start : 20-Oct-2016 End : 03-Nov-2016 Inactive azelastine hydrochloride 0.2 06 mg/actuat metered dose nasal spray (20 sources) Histamine-1 Receptor Antagonist Start: 11-06-2011 End: 12-03-2015 Start: 11-06-2011 End: 12-03-2015 ASTEPRO, 0.15% (Nasal Soluti on) 2 (two) Solution sprays each nostril daily for 0 days Quantity: 1 {Solution} Refills: 0 Ordered: 03-Dec-2015 Patsy Kwok LPN Start : 06-Nov-2011 End : 03-Dec-2015 Discontinued ZITHROMAX Z-GIL, 250MG (Oral Tablet) (20 sources) Macrolide Antimicrobial Start: 09-27-2009 ZITHROMAX Z-GIL, 250 MG (Oral Tablet) 1 Tablet TAD for 0 days Quantity: 1 {Applicator(s)} Refills: 0 Ordered: 16-Jan-2010 MAKENZIE Webb LPN Start : 27-Sep-2009 Inactive Start: 09-27-2009 baclofen 10 mg oral tablet (6 sources) gamma-Aminobutyric Acid-ergic Agonist Start: 02-03-2023 End: 07-06-2023 take 1 tablet by mouth at bedtime as needed for muscle spasms Baclofen 10 mg tablet Discontinued 10 mg PO AT BEDTIME as needed for muscle spasm/leg restlessness February 03, 2023 4:13pm July 06, 2023 2:32pm betamethasone 0.5 mg/ml / clotrimazole 10 mg/ml topical cream (20 sources) Azole Antifungal, Corticosteroid Start: 09-07-2007 End: 08-11-2008 Start: 09-07-2007 End: 08-11-2008 LOTRISONE, 1-0.05% (External Cream) 1 (one) Cream bid for 0 days Quantity: 1 {Cream} Refills: 0 Ordered: 07-Sep-2007 Danae Azevedo Start : 07-Sep-2007 End : 11-Aug-2008 Inactive Comments: TAD Comment on above: TAD Calcium (20 sources) Phosphate Binder, Calcium Start: 08-07-2016 Start: 08-07-2016 take 2 tablets by mo uth once daily Calcium 600 MG Oral Tablet 1200 mg daily for 30 days Quantity: 30 {Tablet} Refills: 0 Ordered: 07-Aug-2016 Sage Morales MD Start : 07-Aug-2016 Active Comments: citrical Comment on above: citrical calcium carbonate 1500 mg oral tablet (20 sources) Start: 08-07-20 16 End: 08-23-20 20 take 1 tablet by mouth once daily Calcium Carbonate (Calcium 600) 600 mg calcium (1,500 mg) tablet Discontinued 600 mg PO DAILY April 18, 2020 12:00am August 23, 2020 2:32pm Comment on above: Take 600 mg by mouth . Centrum (20 sources) End: 08-25-20 06 CENTRUM (Oral Liquid) (20 sources) End: 08-25-20 06 CENTRUM (Oral Liquid) for 0 days Refills: 0 Ordered: 11-Aug-2008 Danae Azevedo End : 25-Aug-2006 Discontinued Citrical (20 sources) Citrical daily Active clarithromycin 500 mg oral tablet (20 sources) Macrolide Antimicrobial Start: 10-17-19 12 End: 10-27-19 12 Start: 03-06-2010 End: 10-08-2010 Start: 03-06-2010 End: 10-08-2010 take 2 tablets by mouth once daily BIAXIN XL, 500MG (Oral Tablet Extended Release 24 Hour) 2 (two) Tablet ER 24HR qd for 0 days Quantity: 20 {Tablet_ER_24HR} Refills: 0 Ordered: 08-Oct-2010 Nika Ricketts Start : 06-Mar-2010 End : 08-Oct-2010 Inactive Start: 03-06-2010 End: 10-08-2010 take 2 tablets by mouth once daily BIAXIN XL, 500MG (Oral Tablet Extended Release 24 Hour) 2 (two) Tablet ER 24HR qd for 0 days Quantity: 20 {Tablet_ER_24HR} Refills: 0 Ordered: 08-Oct-2010 Nika Ricketts Start : 06-Mar-2010 End : 08-Oct-2010 Inactive codeine phosphate 2 mg/ml / guaiFENesin 20 mg/ml oral solution (20 sources) Opioid Agonist Start: 10-20-2016 End: 11-13-2016 Start: 08-15-2009 End: 11-05-2011 Start: 08-15-2009 End: 11-13-2016 take 1-2 [tsp_us] by mouth once daily at bedtime as needed Cheratussin AC 100-10 MG/5ML Oral Solution 1-2 Teaspoon qhs prn for 0 days Quantity: 6 {Ounce} Refills: 0 Ordered: 13-Nov-2016 Latasha Disla LPN Start : 20-Oct-2016 End : 13-Nov-2016 Inactive desloratadine 5 mg oral tabl et (20 sources) Histamine-1 Receptor Antagonist Start: 11-13-2016 End: 01-25-2019 Start: 08-15-2009 End: 10-17-2011 Comment on above: CANCEL SCRIPT _ SENT BY ACCIDENT docosahexaenoic acid 120 mg / eicosapentaenoic acid 180 mg oral capsule (16 sources) DULoxetine 20 mg delayed rel ease oral capsule (20 sources) Serotonin and Norepinephrine Reuptake Inhibitor Start: 05-29-2009 Start: 05-29-2009 CYMBALTA, 20MG (Oral Capsule Delayed Release Particles) 1 (one) Capsule DR Part qd for 0 days Quantity: 90 {Capsule_DR_Part} Refills: 3 Ordered: 06-Mar-2010 Nika Ricketts Start : 29-May-2009 Inactive ergocalciferol 1.25 mg oral capsule (20 sources) Provitamin D2 Compound Start: 08-16-2021 Start: 08-21-2017 Start: 08-21-2017 Ergocalciferol 47633 UNIT Oral Capsule 1 (one) Capsule three times a month for 90 days Quantity: 12 {Capsule} Refills: 0 Ordered: 21-Aug-2017 Sushma Mueller CNP, CNP, Mary E Start : 21-Aug-2017 Active Comments: This order discontinued per [facility]. take 1 capsule by [facility] every week ergocalciferol 50,000 unit capsule (VITAMIN D2, DRISDOL) Take 50,000 Units by mouth one time a week. 0 Active Comment on above: This order discontin ued per [facility]. Take 50,000 Units by mouth one time a week. ezetimibe 10 mg oral tablet (20 sources) Dietary Cholesterol Absorption Inhibitor Start: 06-24-20 End: 10-17-19 ferrous sulfate 325 mg oral tablet (11 sources) Start: 10-31-19 End: 10-07-20 take 1 tablet by mouth once daily Ferrous Sulfate 325 mg (65 mg iron) tablet Discontinued 325 mg PO DAILY October 31, 2021 1:00am October 07, 2022 3:12pm Comment on above: Take 325 mg by mouth daily with breakfast. flurbiprofen 100 mg oral tablet (1 source) Nonsteroidal Anti-inflammatory Drug Start: 06-21-20 End: 06-27-20 take 1 tablet by mouth three times daily as needed for pain Flurbiprofen 100 mg tablet Discontinued 100 mg PO THREE TIMES A DAY as needed for pain June 21, 2024 12:00am June 27, 2024 5:14pm Garlic Oil (12 sources) Start: 08-07-20 16 garlic oiL (9 sources) Start: 08-07-20 16 Garlic Oil 1000 MG Oral Capsule (4 sources) Start: 08-07-20 16 take 1 capsule by mouth once daily Garlic Oil 1000 MG Oral Capsule 1 cap Capsule qd for 0 days Quantity: 30 {Capsule} Refills: 3 Ordered: 07-Aug-2016 Sage Morales MD Start : 07-Aug-2016 Active homatropine methylbromide 0.3 mg/ml / HYDROcodone bitartrate 1 mg/ml oral solution (20 sources) Opioid Agonist, Cholinergic Muscarinic Agonist Start: 03-06-20 10 End: 10-08-20 10 Start: 03-06-2010 End: 10-08-2010 Start: 03-06-2010 End: 10-08-2010 HYCODAN, 5-1.5MG/5ML (Oral S yrup) 10 cc Syrup qhs prn for 0 days Quantity: 100 {Milliliter} Refills: 0 Ordered: 24-Jun-2010 Nika Ricketts Start : 06-Mar-2010 End : 08-Oct-2010 Discontinued Comments: This order discontinued per [facility]. Comment on above: This order discontin ued per [facility]. hydroCHLOROthiazide 12.5 mg oral capsule (20 sources) Thiazide Diuretic Start: 2019 End: 2019 take 1 capsule by mouth once daily Hydrochlorothiazide 12.5 mg capsule Discontinued 12.5 mg PO DAILY April 18, 2020 12:00am August 23, 2020 2:32pm Start: 07-13-2019 End: 01-16-2020 Comment on above: Take 12.5 mg by mout h once daily. hydroCHLOROthiazide 12.5 mg / irbesartan 300 mg oral tablet (20 sources) Thiazide Diuretic, Angiotensin 2 Receptor Jordana Start: 06-24-2010 End: 06-24-2010 Start: 06-24-2010 End: 06-24-2010 AVALIDE, 300-12.5MG (Oral Ta blet) 1 tab Tablet qd for 90 days Quantity: 90 {Tablet} Refills: 3 Ordered: 24-Jun-2010 Cassadnra Myers DO Start : 24-Jun-2010 End : 24-Jun-2010 Discontinued Start: 04-23-2010 Start: 04-23-2010 take 1 tablet by ailin th once daily AVALIDE, 300-25MG (Oral Tablet) 1 (one) Tablet qd for 0 days Quantity: 30 {Tablet} Refills: 3 Ordered: 24-Jun-2010 Nika Ricketts Start : 23-Apr-2010 Inactive hydrocortisone 10 mg/ml / neomycin 3.5 mg/ml / polymyxin b [id number] unt/ml otic solution (20 sources) Aminoglycoside Antibacterial, Polymyxin-class Antibacterial, Corticosteroid Start: 09-27-2012 End: 09-27-2012 Start: 09-27-2012 End: 09-27-2012 CORTISPORIN, [id number] (Ot ic Solution) 3 (three) Solution gtts both ears tid for 0 days Quantity: 1 {Solution} Refills: 0 Ordered: 27-Sep-2012 Cassandra Myers DO Start : 27-Sep-2012 End : 27-Sep-2012 Discontinued ibuprofen 400 mg oral tablet (20 sources) Nonsteroidal Anti-inflammatory Drug Start: 07-13-2019 Start: 09-07-2007 take 1 tablet by ailin th four times daily as needed IBUPROFEN, 400MG (Oral Tablet) Tablet QID PRN for 0 days Refills: 0 Ordered: 04-Apr-2015 Nika Ricketts Start : 07-Sep-2007 Active irbesartan 300 mg oral table t (20 sources) Angiotensin 2 Receptor Jordana Start: 04-08-2023 Start: 04-06-2023 Start: 01-15-2022 Start: 12-02-2021 Start: 04-29-2021 Start: 06-26-2020 Start: 06-25-2020 Start: 04-27-2013 take 1 tablet by ailin th once daily Irbesartan (Avapro) 300 mg tablet Active 300 mg PO DAILY May 05, 2019 12:00am Comment on above: generic ok Mail order. generic ok Take 300 mg by mouth daily at bedtime. meloxicam 7.5 mg oral tablet (20 sources) Nonsteroidal Anti-inflammatory Drug Start: 2 End: 3 take 1 tablet by mouth twice daily as needed for pain Meloxicam 7.5 mg tablet Discontinued 7.5 mg PO TWICE A DAY as needed for muscle/joint pain 60 October 07, 2022 1:00am February 03, 2023 4:09pm Start: 08-15-2019 End: 10-14-2019 take 1 tablet by mouth once daily meloxicam (MOBIC) 7.5 mg tablet Take 7.5 mg by mouth once daily. 0 08/15/2019 Active Start: 08-15-2019 End: 10-14-2019 Start: 07-13-2019 take 1 tablet by ailin once daily Meloxicam 7.5 MG Oral Tablet 1 (one) Tablet daily for 0 days Quantity: 30 {Tablet} Refills: 0 Ordered: 13-Jul-2019 Sushma Mueller CNP, CNP, Mary E Start : 13-Jul-2019 Active Comment on above: Take 7.5 mg by mouth once daily. mometasone furoate 0.05 mg/actuat metered dose nasal spray (20 sources) Corticosteroid Start: 09-27-2012 End: 12-03-2015 Start: 09-27-2012 End: 12-03-2015 NASONEX, 50MCG/ACT (Nasal [place] spension) 2 (two) Suspension qd for 0 days Quantity: 1 {Suspension} Refills: 1 Ordered: 03-Dec-2015 Patsy Kwok LPN Start : 27-Sep-2012 End : 03-Dec-2015 Discontinued omega 8-uxl-dmo-fish oil (9 sources) [place] 7-Dcd-Bcp-Fish Oil (Fi sh Oil) 60-90-500 mg capsule (6 sources) Start: 05-05-2019 End: 04-18-2020 [place] 8-Mml-Hcq-Fish Oil (Fi sh Oil) 60-90-500 mg capsule Discontinued 1 NMA PO DAILY May 05, 2019 12:00am April 18, 2020 10:35am Start: 05-05-2019 End: 04-18-2020 take 1 capsule by mouth once daily [place] 7-Gag-Xif-Fish Oil (Fish Oil) 60-90-500 mg capsule Discontinued 1 CAP PO DAILY May 05, 2019 12:00am April 18, 2020 10:35am omega-3 acid ethyl esters (snf) 1000 mg oral capsule (20 sources) OMEGA-3 FATTY AC IDS, 1000MG (Oral Capsule) for 0 days Refills: 0 Ordered: 17-Jan-2013 Nika Ricketts Active oseltamivir 75 mg oral capsule (20 sources) Neuraminidase Inhibitor Start: 12-30-2007 End: 02-03-2008 Paxlovid (150/100) 10 x 150 MG & 10 x 100MG Oral Tablet Therapy Pack (2 sources) Start: 04-28-2022 End: 08-29-2022 Paxlovid (150/100) 10 x 150 MG & 10 x 100MG Oral Tablet Therapy Pack (9 sources) Start: 04-28-2022 End: 08-29-2022 Paxlovid 10 x 150 MG & 10 x 100MG Oral Tablet Therapy Pack (2 sources) Start: 04-28-2022 Paxlovid 10 x 150 MG & 10 x 100MG Oral Tablet Therapy Pack (2 sources) Start: 04-28-2022 predniSONE 10 mg oral tablet (20 sources) Start: 09-04-2024 End: 09-19-2024 Prednisone 10 mg tablet Discontinued 10 mg PO .COMPLEX 35 September 04, 2024 1:00am September 18, 2024 1:00am September 19, 2024 1:08am 10 mg orally; 40mg x5 days, 20mg x5 days, 10mg x5 days Start: 06-25-2009 Start: 06-25-2009 take 3 tablets by [facility] once daily at mealtime PREDNISONE, 10MG (Oral Tablet) 3 (three) Tablet qd for 0 days Quantity: 30 {Tablet} Refills: 0 Ordered: 16-Jan-2010 MAKENZIE Webb LPN Start : 25-Jun-2009 Inactive Comments: with food Comment on above: with food Red Yeast Rice (12 sources) End: 02-10-2007 RED YEAST RICE (Powder) (20 sources) End: 02-10-2007 RED YEAST RICE (Powder) for 0 days Refills: 0 Ordered: 11-Aug-2008 Danae Azevedo End : 10-Feb-2007 Discontinued red yeast rice extract (bulk) (9 sources) End: 02-10-2007 risedronate sodium 150 mg oral tablet (20 sources) Start: 12-24-2012 End: 12-24-2012 sertraline 25 mg oral tablet (20 sources) Serotonin Reuptake Inhibitor Start: 01-16-2020 End: 04-29-2021 simvastatin 10 mg oral tablet (20 sources) HMG-CoA Reductase Inhibitor Start: 12-22-2006 End: 02-10-2007 TENS Therapy Pain Relief (17 sources) Start: 08-09-2019 TENS Therapy Pain Relief Device (13 sources) Start: 08-09-2019 TENS Therapy Pain Relief Device 1 (one) Device UAD for 0 days Quantity: 1 Kit Refills: 0 Ordered: 09-Aug-2019 Erica Live LPN Start : 09-Aug-2019 Active Start: 08-09-2019 TENS Therapy P ain Relief Device 1 (one) Device UAD for 0 days Quantity: 1 Kit Refills: 0 Ordered: 09-Aug-2019 Srikanth Mcgrath LPN Start : 09-Aug-2019 Active terbinafine hydrochloride 10 mg/ml topical cream (20 sources) Allylamine Antifungal Start: 01-25-2019 End: 02-15-2019 Start: 01-25-2019 End: 02-15-2019 Terbinafine HCl 1 % External Cream 1 (one) Application bid for 21 days Quantity: 1 {Tube} Refills: 0 Ordered: 25-Jan-2019 Sushma Mueller CNP, CNP, Mary E Start : 25-Jan-2019 End : 15-Feb-2019 Inactive triamcinolone acetonide 0.05 5 mg/actuat metered dose nasal spray (20 sources) Corticosteroid Start: 09-27-2009 End: 09-27-2009 Start: 09-27-2009 End: 09-27-2009 Start: 09-27-2009 End: 09-27-2009 NASACORT AQ, 55MCG/ACT (Nasa l Aerosol Solution) 2 (two) Aerosol Soln qd for 0 days Refills: 0 Ordered: 16-Jan-2010 MAKENZIE Webb LPN Start : 27-Sep-2009 End : 27-Sep-2009 Inactive Start: 09-27-2009 End: 09-27-2009 NASACORT AQ, 55MCG/ACT (Nasa l Aerosol Solution) 2 (two) Aerosol Soln qd for 0 days Refills: 0 Ordered: 16-Jan-2010 MAKENZIE Webb Start : 27-Sep-2009 End : 27-Sep-2009 Inactive vitamin b12 0.1 mg oral tabl et (20 sources) Vitamin B12 Start: 08-07-2016 Comment on above: 500 mg daily (17 sources) Problems Active Problems Problem Classification Problem Date Documented Da te Episodic/Chronic Acute bronchitis (20 sources) Acute bronchitis; Translations: [Bronchitis, acute] Resolved: 0 07-17-2015 Episodic Allergic reactions (20 sources) Dermatitis due to drugs and medicines taken internally; Translations: [Dermatitis due to drug AND/OR medicine taken internally] Resolved: 0 01-24-2019 Episodic Comment on above: RASH RESOLVING SOME NEW SPOTS, TO CONTINUE LOTRISONE Anxiety disorders (20 sources) Anxiety; Translations: [Mixed anxiety and depressive disorder] Resolved: 7 01-24-2019 Chronic Comment on above: alprazalam prn for d og alprazalam prn for d og No longer taking Xanax. Never started Sertraline Cardiac dysrhythmias (20 sources) Atrial flutter; Translations: [Cardiac dysrhythmia, unspecified] Resolved: 2 01-24-2019 Chronic Comment on above: had postop after gal lbladder - had to be cardioverted- - just wanted you to be aware GB surgery post op h ad to be in ICU and shocked , back in rhythm Chronic obstructive pulmonary disease and bronchiectasis (20 sources) Bronchitis; Translations: [Bronchitis] Resolved: 2 01-24-2019 Episodic Chronic obstructive pulmonary disease and bronchiectasis (20 sources) Chronic obstructive pulmonary disease and bronchiectasis Complications of surgical procedures or medical care (20 sources) History of total thyroidectomy; Translations: [History of thyroidectomy, total] 10-30-2020 Chronic Conditions associated with dizziness or vertigo (20 sources) Dizziness; Translations: [Dizziness and giddiness] 08-21-2017 Episodic Comment on above: think combination of orthostasis and etd- push fluids and nasal spray- warning neuro sx discussed - call not better Deficiency and other anemia (20 sources) Anemia; Translations: [Anemia] 10-08-2021 Episodic Disorders of lipid metabolism (20 sources) Hypercholesterolemia; Translations: [Other and unspecified hyperlipidemia] Resolved: 3 08-21-2017 Chronic Comment on above: she tried meds -- sh e didnt tolerate--and we discussed diet and ex impoving - aggressiv e diet and exerciseWill check lipid pane with next blood workLast LDL 160(04/25)muscle aches with 5 pills, so cant take impoving - aggressiv e diet and exerciseWill check lipid pane with next blood workLast LDL 160(04/25) (04/20) LDL 127, pt does not tolerate cholesterol meds D/T myopathymuscle aches with 5 pills, so cant take Esophageal disorders (20 sources) Gastroesophageal reflux disease; Translations: [GERD (gastroesophageal reflux disease)] 08-21-2017 Chronic Comment on above: TUMS OTC Essential hypertension (20 sources) Hypertensive disorder; Translations: [Hypertension] 08-21-2017 Chronic Comment on above: 152/84 152/84, now 118/75, take hctz qod 152/84, now 118/75, today BP 130/82 controlled on avapro, stoppe hctz Fever of unknown origin (20 sources) Fever; Translations: [Fever] Resolved: 3 04-28-2022 Episodic Fluid and electrolyte disorders (20 sources) Dehydration; Translations: [Dehydration] Resolved: 7 01-24-2019 Episodic Genitourinary symptoms and ill-defined conditions (20 sources) Urinary frequency; Translations: [Increased frequency of urination] Resolved: 0 01-24-2019 Episodic Headache; including migraine (20 sources) Headache; Translations: [Headache] 08-21-2017 Episodic Hypertension with complications and secondary hypertension (20 sources) Unspecified hypertensive heart disease without heart failure; Translations: [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] 08-21-2017 Chronic Comment on above: chronic stable-kayla nue present regimen Influenza (20 sources) Influenza with other manifestations; Translations: [Influenza with non-respiratory manifestation] Resolved: 9 01-24-2019 Episodic Malaise and fatigue (20 sources) Fatigue; Translations: [Fatigue] Resolved: 2 08-21-2017 Episodic Comment on above: daytime Mood disorders (20 sources) Dysthymic disorder; Translations: [Dysthymia] 08-21-2017 Chronic Comment on above: chronic stable-kayla nue present regimen Mood disorders (17 sources) Mood disorders Noninfectious gastroenteritis (20 sources) Acute gastroenteritis; Translations: [Gastroenteritis, acute] 08-21-2017 Episodic Nonspecific chest pain (20 sources) Chest pain; Translations: [Chest pain] Resolved: 1 01-24-2019 Episodic Nutritional deficiencies (20 sources) Vitamin D deficiency; Translations: [Unspecified vitamin D deficiency] Resolved: 7 08-21-2017 Chronic Comment on above: Dr. Carlos brewer Nutritional deficiencies (20 sources) Cobalamin deficiency; Translations: [B12 deficiency] 08-21-2017 Episodic Occlusion or stenosis of precerebral arteries (20 sources) Bilateral atherosclerosis of carotid arteries; Translations: [Carotid artery plaque, bilateral] Onset: 4 10-30-2020 Chronic Other and ill-defined cerebrovascular disease (6 sources) Small vessel cerebrovascular disease; Translations: [Cerebrovascular disease, unspecified] 12-20-2020 Chronic Other and unspecified benign neoplasm (20 sources) Polyp of colon; Translations: [Sessile colonic polyp] 08-21-2017 Episodic Comment on above: colosopsy: 07/07/16Ja bourLakenrick sessile polypRepeat in 4 years Other bone disease and musculoskeletal deformities (20 sources) Osteopenia; Translations: [Osteopenia] Resolved: 1 01-24-2019 Episodic Other circulatory disease (20 sources) Orthostatic hypotension; Translations: [ORTHOSTATICS BP/P] Resolved: 7 01-24-2019 Episodic Other connective tissue disease (20 sources) Primary fibromyalgia syndrome; Translations: [Fibromyalgia] Episodic Other connective tissue disease (20 sources) Fibromyalgia; Translations: [Fibromyalgia] 11-13-2016 Episodic Comment on above: chronic stable-kayla nue present regimen Other connective tissue disease (20 sources) Enthesopathy of hip region; Translations: [Bursitis of hip, unspecified laterality] Resolved: 7 01-24-2019 Episodic Comment on above: gave treatment optio oons- she will try hip bursae exercises - call no improve- pt or steroid shot Other connective tissue disease (20 sources) Myalgia; Translations: [Muscle pain] Episodic Other connective tissue disease (20 sources) Muscle pain; Translations: [Myalgia] 08-21-2017 Episodic Other connective tissue disease (1 source) Thigh pain; Translations: [Pain in right thigh] 09-04-2024 Episodic Other ear and sense organ disorders (20 sources) Disorder of external ear; Translations: [Irritation of external ear canal] Resolved: 7 01-24-2019 Episodic Other endocrine disorders (20 sources) Primary hyperparathyroidism; Translations: [Hyperparathyroidism, primary] Resolved: 5 01-24-2019 Chronic Other female genital disorders (20 sources) Lesion of labia; Translations: [Labial lesion] Resolved: 3 10-30-2020 Episodic Comment on above: rt labial lesion rou nd hard Other gastrointestinal disorders (20 sources) Diarrhea; Translations: [DIARRHEA (Renamed from D (diarrhea))] Resolved: 7 01-24-2019 Episodic Comment on above: discussed mag she wi ll talk with chaparro Other gastrointestinal disorders (20 sources) Diarrhea and vomiting; Translations: [Vomiting and diarrhea] Resolved: 7 01-24-2019 Episodic Other gastrointestinal disorders (6 sources) History of rectal bleeding; Translations: [Personal history of other diseases of the digestive system] 05-06-2022 Episodic Other gastrointestinal disorders (3 sources) Personal history of other diseases of the digestive system; Translations: [Personal history of other diseases of digestive system] Episodic Other hematologic conditions (6 sources) History of anemia; Translations: [Personal history of diseases of the blood and blood-forming organs and certain disorders involving the immune mechanism] 05-06-2022 Episodic Other hereditary and degenerative nervous system conditions (20 sources) Essential tremor; Translations: [Tremor, essential] 07-13-2019 Chronic Other hereditary and degenerative nervous system conditions (6 sources) Restless legs; Translations: [Restless legs syndrome] 05-06-2022 Chronic Other hereditary and degenerative nervous system conditions (4 sources) Restless legs syndrome; Translations: [Restless legs syndrome (RLS)] Chronic Other inflammatory condition of skin (20 sources) Psoriasis; Translations: [Psoriasis] 08-29-2022 Chronic Other lower respiratory disease (20 sources) Cough; Translations: [Cough] Resolved: 7 07-27-2017 Episodic Other lower respiratory disease (20 sources) Wheezing; Translations: [Wheezing] Resolved: 2 01-24-2019 Episodic Other lower respiratory disease (20 sources) Shortness of breath; Translations: [Dyspnea] Episodic Other lower respiratory disease (20 sources) Snoring; Translations: [Snores] 08-21-2017 Episodic Comment on above: rule out sleep apnea with variety of symptoms worsening, Other lower respiratory disease (20 sources) Dyspnea; Translations: [Shortness of breath] Resolved: 0 01-24-2019 Episodic Other nervous system disorders (20 sources) Tremor; Translations: [Tremor] Resolved: 1 07-13-2019 Episodic Comment on above: new, father with par kinsons, both hands now, change in facial appearance new, father with par kinsons, both hands now, change in facial appearance, seeing Bavis soon Other non-traumatic joint disorders (20 sources) Hip pain; Translations: [Hip pain] Resolved: 2 08-21-2017 Episodic Other non-traumatic joint disorders (20 sources) Joint pain; Translations: [Arthralgia] 08-21-2017 Episodic Other non-traumatic joint disorders (20 sources) Ankle pain; Translations: [Ankle pain, left] Resolved: 2 10-08-2021 Episodic Other non-traumatic joint disorders (20 sources) Swollen ankle region; Translations: [Ankle swelling, left] Resolved: 2 10-08-2021 Episodic Other non-traumatic joint disorders (3 sources) Pain in left shoulder; Translations: [Left shoulder pain] Onset: 5 11-07-2024 Episodic Other nutritional; endocrine; and metabolic disorders (20 sources) Hypercalcemia; Translations: [Hypercalcemia] Resolved: 5 01-24-2019 Chronic Other nutritional; endocrine; and metabolic disorders (20 sources) Body mass index 30+ - obesity; Translations: [BMI 35.0-35.9,adult] Resolved: 3 01-24-2019 Chronic Other nutritional; endocrine; and metabolic disorders (3 sources) Body mass index 25-29 - overweight; Translations: [BMI 27.0-27.9,adult] 10-08-2021 Episodic Other nutritional; endocrine; and metabolic disorders (20 sources) Overweight in adulthood with body mass index of 25 or more but less than 30; Translations: [BMI 27.0-27.9,adult] 04-28-2022 Episodic Other screening for suspected conditions (not mental disorders or infectious disease) (20 sources) Radiology result abnormal; Translations: [Abnormal finding on radiology exam] Resolved: 1 12-18-2020 Chronic Other skin disorders (20 sources) Pigmented skin lesion ; Translations: [Atypical mole] 08-21-2017 Episodic Comment on above: left arm Other skin disorders (20 sources) Eruption; Translations: [Rash] Resolved: 2 01-25-2019 Episodic Comment on above: ? fungal vs other rodrgiuez s tried cortisone and triple antibiotic Other skin disorders (12 sources) Multiple actinic keratoses; Translations: [Actinic keratoses] 02-23-2023 Episodic Other upper respiratory disease (20 sources) Allergic rhinitis; Translations: [Allergic rhinitis due to other allergen] Resolved: 7 08-21-2017 Chronic Comment on above: try nasasonex and se e if helps Other upper respiratory disease (20 sources) Allergic rhinitis due to other allergen Chronic Other upper respiratory infections (20 sources) Sinusitis; Translations: [Sinusitis] Resolved: 7 01-24-2019 Chronic Other upper respiratory infections (20 sources) Acute sinusitis, unspecified; Translations: [Sinusitis] Onset: 0 Resolved: 7 08-21-2017 Episodic Otitis media and related conditions (20 sources) Otitis media; Translations: [Dysfunction of eustachian tube] Onset: 2 Resolved: 1 01-24-2019 Episodic Parkinson`s disease (20 sources) Parkinson's disease; Translations: [Parkinsons] Onset: 4 08-22-2019 Chronic Comment on above: seeing Carito seeing Carito, on Sin emet (carbadopa levadopa), not ropinorole sees Neuro. PT has helped.Diagnosed Aug [address] Grupo [place], on sinmet. He is requesting a MRI for comparisonPt partaking in parkinson exercise groupdiagnosed 2018 Parkinson`s disease (20 sources) Parkinson`s disease Poisoning by other medications and drugs (20 sources) Adverse reaction to drug; Translations: [Adverse effect of unspecified drugs, medicaments and biological substances, initial encounter] Resolved: 9 01-24-2019 Episodic Residual codes; unclassified (20 sources) Sleep apnea; Translations: [Sleep apnea] 08-21-2017 Chronic Comment on above: awaiting closure of diagnosis of sleep apnea Residual codes; unclassified (20 sources) Needs influenza immunization; Translations: [Need for prophylactic vaccination and inoculation against influenza (Renamed from Need for immunization against influenza)] 06-17-2018 Episodic Residual codes; unclassified (20 sources) Postmenopausal state; Translations: [Postmenopausal (Renamed from Postmenopausal status)] Resolved: 7 07-27-2017 Episodic Residual codes; unclassified (20 sources) Family history of malignant neoplasm of breast; Translations: [Family history of malignant neoplasm of breast in first degree relative] 08-21-2017 Episodic Residual codes; unclassified (6 sources) History of thyroidectomy; Translations: [History of thyroidectomy, total] 01-16-2020 Episodic Comment on above: [employer] managing Residual codes; unclassified (20 sources) History of parathyroidectomy; Translations: [H/O parathyroidectomy] 10-30-2020 Episodic Residual codes; unclassified (20 sources) Non-smoker; Translations: [Nonsmoker] 10-30-2020 Episodic Spondylosis; intervertebral disc disorders; other back problems (20 sources) Pain in thoracic spine; Translations: [Backache] Resolved: 2 08-21-2017 Episodic Comment on above: does n ot want to se ad Logan, has seen amol has done pool therapy Using Tens unit and PT it is helping wants renewal Superficial injury; contusion (20 sources) Contusion of ankle; Translations: [Ankle bruise] Resolved: 2 10-08-2021 Episodic Thyroid disorders (20 sources) Thyroid nodule; Translations: [Hypothyroidism] Resolved: 3 01-24-2019 Chronic Comment on above: chronic stable-kayla nue present regimen,[place] twice as year, next apt 06/27 and will be doing labs for himFollowed by Dr Summers,Thyroidectomy and parathyroidectomy 2012 chronic stable-kayla nue present regimen,[place] twice as year,Labs 08-19-19 TSH 0.59 on Synthroid [address] Summers,Thyroidectomy and parathyroidectomy 2012 chronic stable-kayla nue present regimen,[place] twice as year,Labs 08-19-19 TSH 0.59 on Synthroid 137 daily Follow up with [facility] Monday 04/30, TSH stableFollowed by Dr Summers,Thyroidectomy and parathyroidectomy 2012 chronic stable-kayla nue present regimen,[place] twice as year,Labs 08-19-19 TSH 0.59 on Synthroid 137 daily Follow up with [facility] Monday 04/30, TSH stableOn Synthroid 137Followed by Dr Summers,Thyroidectomy and parathyroidectomy 2012 Unclassified (20 sources) Unclassified (20 sources) Eustachian tube dysfunction (381.81) Unclassified (20 sources) vit d excess- dscussed with pt to cut back vit d intake in 10/13 Resolved: 0 01-24-2019 Comment on above: stable- off vitd Unclassified (20 sources) Non-smoker; Translations: [Nonsmoker] 08-21-2017 Unclassified (20 sources) screening Resolved: 2 08-21-2017 Unclassified (20 sources) VITAMIN D DEFICIENCY, NOS (268.9) Unclassified (20 sources) lymhadenopathy Resolved: 8 01-24-2019 Unclassified (20 sources) B12 deficiency Unclassified (20 sources) Encounter for screening mammogram for breast cancer Unclassified (20 sources) Non-smoker Unclassified (20 sources) BMI 34.0-34.9,adult Unclassified (20 sources) Sessile colonic polyp Unclassified (20 sources) Heart disease, hypertensive, malignant, without heart failure Unclassified (20 sources) Thyromegaly Unclassified (20 sources) Hip bursitis 726.5 Unclassified (20 sources) BMI 36.0-36.9,adult Unclassified (20 sources) Back pain, lumbosacral Unclassified (16 sources) BMI 37.0-37.9, adult Unclassified (6 sources) Carotid artery plaque, bilateral Unclassified (2 sources) Labial lesion Unclassified (2 sources) Left shoulder pain; Translations: [M25.512 - Pain in left shoulder] Unclassified (1 source) Low back pain, unspecified; Translations: [Low back pain, unspecified] Onset: 4 Viral infection (20 sources) Viral infection, unspecified; Translations: [Viral disease] Resolved: 3 08-27-2015 Episodic Past or Other Problems Problem Classification Problem Date Documented Date Episodic/Chronic Headache; including migraine (20 sources) Headache; including migraine Hemorrhoids (20 sources) Hemorrhoids; Translations: [Hemorrhoids] Resolved: 11-13-2016 01-24-2019 Episodic Immunizations and screening for infectious disease (20 sources) Need for prophylactic vaccination and inoculation against influenza; Translations: [Contact with and (suspected) exposure to other viral communicable diseases] Onset: 08-25-2024 Resolved: 10-30-2020 09-14-2020 Episodic Influenza (20 sources) Influenza Occlusion or stenosis of precerebral arteries (6 sources) Bilateral atherosclerosis of carotid arteries; Translations: [Carotid artery plaque, bilateral] 01-16-2020 Comment on above: Saw Dr Avila Dec 09 to repeat carotid in a year Nov 2020 Other connective tissue disease (1 source) Pain in right thigh; Translations: [Pain in right thigh] Onset: 09-04-2024 Episodic Other nervous system disorders (20 sources) Hopson's palsy; 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] Resolved: 04-09-2010 01-24-2019 Episodic Comment on above: 351.0 Other non-traumatic joint disorders (1 source) Pain in left hip; Translations: [Pain in left hip] Onset: 06-21-2024 Episodic Other screening for suspected conditions (not mental disorders or infectious disease) (20 sources) Encounter for screening for cardiovascular disorders; Translations: [Breast neoplasm screening status] Onset: 06-20-2024 Resolved: 10-30-2020 01-24-2019 Episodic Residual codes; unclassified (6 sources) Radiology result abnormal; Translations: [Abnormal finding on radiology exam] Resolved: 10-30-2020 01-16-2020 Episodic Comment on above: abnormal blood flow screening, then abnormal carotid doppler with Left interna carotid stenosis 50-69% Will send to Dr. Maikel Avila for evaluation. Unclassified (20 sources) Patient encounter status; Translations: [Breast cancer screening] Resolved: 11-13-2016 04-21-2018 Comment on above: Patient here for [facility] follow up as well as medicare physical. Went through all the medicare questions withthe patient and reveiwed all their medical problems.Breast exam:no masses, lumps, nodules.Axillary lymph nodes non palpable.Abnormal moles on physical examination on left arm, changing in coloMammogram 04/26:WNL(mom and 2 aunts breast caEKG 03/09/16:WNLMMSE .Depression screening negative.Order labs.(CBC, CMP, lipid panel, TSH, PSA, vitamin D, Vit B12,folate, HBA1c, UA) Mammogram 04/26 wnlBD:03/11/13 wnlColonoscopy:checking , not sureUp to date with vaccinations.EK02/24 by MECDoes not need any medication refills.Make sure throw rugs are thin and rubber backed. Recommend handrail in bathroom.Denies falls in the last 6 months Counselled on diet and exercise.Patient has durable power of laundry helper(Daughter) and does not have a living will, will work on it BD: 03/11/13: WNL Unclassified (20 sources) Deliveries (Parity); Translations: [Deliveries (Parity)] 08-21-2017 Comment on above: 2 Unclassified (20 sources) tricuspid insuff- SBE proph and bp control Resolved: 07-27-2017 01-24-2019 Unclassified (20 sources) Pregnancies (); Translations: [Pregnancies ()] 08-21-2017 Comment on above: 2 Unclassified (20 sources) CERTAIN ADVERSE EFFECTS NOT ELSEWHERE CLASSIFIED; UNSPECIFIED ADVERSE EFFECT OF UNSPECIFIED DRUG, MEDICINAL AND BIOLOGICAL SUBSTANCE (995.20) Unclassified (20 sources) SCREENING FOR BREAST CANCER (V76.10) Unclassified (20 sources) Unspecified Diagnosis 08-21-2017 Unclassified (20 sources) Arrhythmia (427.9) Unclassified (20 sources) Pre-Operative Examination, Unspecified (V72.84) Unclassified (20 sources) Hysterectomy; Abdominal; Translations: [Hysterectomy; Abdominal] Resolved: 01-16-2010 01-24-2019 Comment on above: Secondary to fibroid s Unclassified (20 sources) External Ear Irritation (698.9) Unclassified (20 sources) Poison tasha (692.6) Unclassified (20 sources) Preprocedural examination done; Translations: [Pre-operative examination] Resolved: 11-13-2016 07-27-2017 Unclassified (20 sources) COUGH, NOS (786.2) Unclassified (20 sources) BMI 35.0-35.9,adult Unclassified (20 sources) Snores Unclassified (20 sources) Hyperparathyroidism, primary (252.01) Unclassified (20 sources) Screening for breast cancer Unclassified (20 sources) Postmenopausal (Renamed from Postmenopausal status) Unclassified (20 sources) Family history of breast cancer in mother Unclassified (20 sources) Thyromegaly (240.9) Unclassified (20 sources) Medicare welcome exam Unclassified (20 sources) Blood pressure check; Translations: [Blood pressure finding] Resolved: 05-14-2015 01-24-2019 Unclassified (20 sources) Atypical mole Unclassified (20 sources) Gastroenteritis, acute Unclassified (20 sources) ORTHOSTATICS BP/P Unclassified (20 sources) DIARRHEA (Renamed from D (diarrhea)) Unclassified (20 sources) Rash Unclassified (20 sources) D-dimer, elevated Unclassified (20 sources) History of parathyroidectomy; Translations: [H/O parathyroidectomy] 08-15-2019 Unclassified (18 sources) History of total thyroidectomy; Translations: [History of thyroidectomy, total] 08-15-2019 Comment on above: [employer] managing Unclassified (4 sources) Screening status; Translations: [Screening for osteoporosis (Renamed from Encounter for screening for osteoporosis)] Resolved: 11-13-2016 07-27-2017 Comment on above: BD: 03/11/13: WNL Unclassified (12 sources) Abnormal finding on radiology exam Unclassified (3 sources) Exposure to SARS virus Urinary tract infections (20 sources) Urinary tract infectious disease; Translations: [Urinary tract infection, site not specified] Resolved: 01-16-2010 01-24-2019 Episodic Results Test Name Value Interpretation Reference Range Facility Chest PA and Lateralon 01-16 Chest PA and Lateral [facility] Imaging Services [address] [place] [address] Chest PA and Lateral MR#: [id number] Acct: [id number] Name: CARMEN GARCIA Rep #: [id number] : 1950 F 74 From: Jorge L Hebert i, DO PCP: VALENTIN San Status: DEP AMB Study: Chest PA and Lateral Date of Exam: 01/16/25 Exam# [id number] Ordering Dr: Maricruz Chiu DO PROCEDURE: PA and lateral chest radiographs, two views 01/16/2025 REASON FOR EXAM: ABNORMAL LUNG SOUNDS, shortness of breath TECHNIQUE: PA and lateral views of the chest. COMPARISON: None available FINDINGS: The cardiomediastinal silhouette is within normal limits. Thoracic aorta is tortuous. Bones are osteopenic with degenerative changes in the spine. No focal airspace consolidation, pneumothorax, or pleural effusion. Mild scattered coarse interstitial markings in the mid to lower lungs bilaterally. RAD/Chest PA and Lateral IMPRESSION: Mild scattered coarse interstitial markings in the mid to lower lungs bilaterally, which could be due to mild chronic interstitial lung disease or viral infection. No focal pneumonia or sizable pleural effusion. Follow-up chest CT may be considered, if there are persistent symptoms or clinical concern. Reading Location: [place] CC: [employer] M[employer]DER-C Cindy Mcpherson; Dr. Maricruz Chiu DO Crisis Clinician: Signed Normal [facility] PT D/C Summary (1)on 025 PT D/C Summary (1) [facility] Physical Therapy [facility] [address] [place] [address] [address] [place] [address] / REHABILITATION SERVICES DISCHARGE SUMMARY MR#: [id number] Acct: [id number] Name: CARMEN GARCIA Rep #: [id number] : 1950 74 From: Patsy CARNES Referring Dr.: Dr. Edvin Armijo MD Status: REG RCR Insurance: MEDICARE PART A B AET[employer] SR SUPPLEMENT INS Discharge Summary D/C summary: It has been my pleasure to treat CARMEN GARCIA referred by Dr. Edvin Armijo MD, with the diagnosis of L shoulder pain for a total of 8 visit(s). Discharge Date: 01/04/25 Please see the following information for a summary of their discharge status. Subjective Subjective: Pt reports that she is better but she still feels that she has room to grow. She has some pain with laying on it and she is stiff in her shoulder in the morning. She feels that she has enough exercises to do at home. Pain L shoulder pain: Pain Intensity (Out of 10): 0 Overall Improvement % Improvement: 50 Objective Objective/Function: Improved overall L shoulder AROM and strength with results below UE AROM: R shoulder flexion 140 and L 115 R shoulder abd 130 and L 79 R shoulder IR L1 and L PSIS R shoulder ER 71 and L 50) UE MMT R shoulder flexion 5.2 and L 7.6 R shoulder ABD 5.3 and L 6 R shoulder IR 6.4 and L 8.1 R shoulder ER 7.1 and L 9.1. Goals Goal 1:: I HEP Goal Progress: Goal Met Goal 2:: Increase L shoulder AROM (at the time of the eval: UE AROM: R shoulder flexion 140 and L 61 R shoulder abd 130 and L 54 R shoulder IR L1 and L PSIS R shoulder ER 71 and L 50) Goal Progress: Goal Met Goal 3:: Be able to use her L shoulder with her ADL's without pain Goal Progress: Progressing Goal 4:: Increase L shoulder strength (at the time of the eval: UE MMT R shoulder flexion 5.2 and L 2.1 R shoulder ABD 5.3 and L 1.2 R shoulder IR 6.4 and L 4.6 R shoulder ER 7.1 and L 6.6). Goal Progress: Goal Met Plan Plan: DC PT to indep HEP D/C Information Discharge Comments: DC PT to indep HEP d/c sentence: If there are questions or concerns regarding this patient's physical therapy, please feel free to call me at [phone]. Thank you for the referral of this patient. Sincerely, DEYVI Shields Balance/Gait/Functional tests Balance/Special Test Scores Quick DASH Score: 18.1800 Improvement % Improvement: 50 01/04/25 1232 CC: [employer]-C Cindy Mcpherson; Dr. Edvin Armijo MD Signed Normal [facility] Inital Evaluation (1) - PTon 12-12-2024 Inital Evaluation (1) - PT [facility] Physical Therapy [facility] [address] [place] [address] / REHABILITATION SERVICES INITIAL EVALUATION MR#: [id number] Acct: [id number] Name: CARMEN GARCIA Rep #: [id number] : 1950 74 From: Patsy CARNES Referring Dr.: Dr. Edvin Armijo MD Status: REG RCR Insurance: MEDICARE PART A B AET[employer] SR SUPPLEMENT INS Patient's Visit Information Visit Information Visit Information: CARMEN GARCIA is a 74 year old F referred to Physical Therapy by Dr. Edvin Armijo MD with a diagnosis of L shoulder pain. Date of Evaluation: 12/12/24 Physical Therapist: DEYVI Shielsd Visit Plan Frequency: 2x /Week Duration: 2 Months Plan: 2X/ week for 8 weeks for L shoulder PROM, AAROM, AROM, scapular and RC strength with HEP HEP: supine wand flex, standing wand ER and Wand shoulder extension Subjective Subjective: Pt reports that the x-rays show L shoulder has arthritis. She has been noticing L shoulder pain for some time and not getting any better so she decided to get it looked at. said to do PT. She can do things waist high but trying to do her hair or lift her arm up she can not. It is limited to reach for something in the fridge or reach out across the end table. Getting dressed is also an issue. She has no N T. She does have neck stiffness. She does have PD. She has pain on the front of her shoulder and feels it is in the muscle as well as the joint. Doing everyday things is fine cause she uses her R arm. Pt is R handed. She can not lay on the L shoulder for very long. Pain L shoulder pain: Pain Intensity (Out of 10): 0 Pain Intensity Range: 2 Comment: if moving her arm Objective Objective: R handed R group home counselor strength 51 and L 40 UE AROM: R shoulder flexion 140 and L 61 R shoulder abd 130 and L 54 R shoulder IR L1 and L PSIS R shoulder ER 71 and L 50 UE MMT R shoulder flexion 5.2 and L 2.1 R shoulder ABD 5.3 and L 1.2 R shoulder IR 6.4 and L 4.6 R shoulder ER 7.1 and L 6.6 PROM in supine: tight at all end ranges. L shoulder able to get to approx 70 degrees flexion, 90 degrees ABD Balance/Special Test Scores Quick DASH Score: 31.8175 Goals Goal 1:: I HEP Goal Time Frame: 6-8 Weeks Goal 2:: Increase L shoulder AROM (at the time of the eval: UE AROM: R shoulder flexion 140 and L 61 R shoulder abd 130 and L 54 R shoulder IR L1 and L PSIS R shoulder ER 71 and L 50) Goal Time Frame: 6-8 Weeks Goal 3:: Be able to use her L shoulder with her ADL's without pain Goal Time Frame: 6-8 Weeks Goal 4:: Increase L shoulder strength (at the time of the eval: UE MMT R shoulder flexion 5.2 and L 2.1 R shoulder ABD 5.3 and L 1.2 R shoulder IR 6.4 and L 4.6 R shoulder ER 7.1 and L 6.6). Rehabilitation Potential Rehabilitation Potential: Good Anticipated Interventions Patient/Client Instruction: Educate patient on: Condition and Plan of Care For the Purpose of:: To decrease pain, To decrease swelling/inflammation, To increase ROM, To improve nutrient delivery to tissue, To improve muscle performance and motor function, To improve ability to perform ADL's, To increase tolerance to activity/condition/posit ion, To improve performance and independence with ADL's, To decrease level of supervision to perform tasks, To improve gait and locomotor functions, To improve health of tissue, To decrease soft tissue restriction, To increase flexibility/ROM, To improve endurance, To improve balance and To improve safety with gait Therapeutic Exercise to Include: Strength training, Endurance training, Postural training, Flexibilty training, Passive ROM, Active ROM and Scapular Strength/Stabilization For the Purpose of:: To decrease pain, To increase ROM, To improve nutrient delivery to tissue, To improve muscle performance and motor function, To improve ability to perform ADL's, To increase t olerance to activity/condition/posit ion, To improve performance and independence with ADL's, To decrease level of supervision to perform tasks, To improve ability of physical actions for home/community/work/leis ure, To improve health of tissue, To decrease soft tissue restriction and To increase flexibility/ROM Manual Therapy Techniques to Include: Passive ROM For the Purpose of:: To decrease pain, To increase ROM, To improve muscle performance and motor function, To improve ability to perform ADL's, To increase tolerance to activity/condition/posit ion, To decrease soft tissue restriction and To increase flexibility/ROM Cryotherapy (ice pack, ice massage): Yes Thermo therapy (hot pack): Yes For the Purpose of:: To decrease pain, To increase ROM and To improve nutrient delivery to tissue Text: Thank you for the opportunity to evaluate your patient. For Medicare and Medicare HMO plans, please review the plan of care and approve it. It will nee (more content not included)... Normal [facility] Neurology Visit Reporton Neurology Visit Report [facility] [address] [place] [address], [address] [place] [address] OFFICE VISIT Date of Service: 11/07/24 MR#: [id number] Acct: [id number] Name: CARMEN GARCIA Rep #: [id number] : 1950 Provider: Dr. Edvin holland MD Age/Sex: 74/F Location: [facility] Status: Signed with Addenda ADDENDUM by Dr. Edvin Armijo MD on 12/08/24 at 1615 Addendum Addendum (12/08/2024): Left shoulder x-rays (11/07/2024): FINDINGS: There is mild glenohumeral arthrosis. There is mild acromioclavicular arthrosis. Normal acromion. Normal humeral head and visualized proximal humerus. The soft tissue structures are unremarkable. There is no demonstrated fracture. Normal visualized pulmonary apex. 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 No demonstrated fracture. Per the patient's request physical therapy will be ordered for her left shoulder limitation of movement. 12/08/24 1615 Date Edvin Armijo MD cc: * Signed ADDENDUM by Dr. Edvin Armijo MD on 11/23/24 at 1632 Addendum Addendum (11/23/2024): Per the patient's request, celecoxib 100 mg twice daily as needed will be prescribed for her musculoskeletal pain. Correction of typographic error in assessment and plan: Change will ibuprofen to flurbiprofen. 11/23/24 1632 Date Edvin Armijo MD cc: * Signed HPI HPI Chief Complaint: Details: Interim History: [...] having increased tremor and further slowing of gait. She has micrographia. She has had some [...] took an iron supplement prescribed by a wire saw operator after having a period of rectal bleeding in 2020. Labs checked in 2021 revealed normal iron and ferritin levels and a CBC did not reveal anemia. She has had bilateral thigh muscle tightness pain. She has some chronic intermittent low back pain. She has pain in the hips (left greater than right). Lumbar x-rays reveal mild to moderate degenerative changes. Mild degenerative changes of the hips were noted on right and left hip x- rays. She has had physical therapy. Tylenol PM and Advil have been of modest benefit. Flurbiprofen was not well-tolerated. It appears that she did not try celecoxib. Since September 2024 she has been experiencing mild left upper arm discomfort and mild limitation of movement at the left shoulder. She denies having any left shoulder trauma. Her carotid ultrasound from December 2023 reveals antegrade flow in the vertebral arteries bilaterally and 20-39% stenosis of the internal carotid arteries bilaterally which is unchanged from her study of December 2022. She sees a vascular surgeon, Dr. Avila, for management of her carotid stenosis. She does not have any history of symptomatic cerebrovascular disease. Her head MRI from 2016 showed minimal chronic small vessel ischemic disease. She did not tolerate various lipid- lowering agents. Her lipid panel from 05/2021 was [...] extended; no rigidity is noted in the wrist; gait is mildly slow; motor strength is 5/5 at the left deltoid however she is unable to elevate the left arm above 140 degrees Neck: No bruits Heart: Regular ra (more content not included)... Normal [facility] Shoulder min 2 Viewson 11-07 Shoulder min 2 Views [facility] Imaging Services [address] [place], [place] [id number] Shoulder min 2 Views MR#: [id number] Acct: [id number] Name: CARMEN GARCIA Rep #: [id number] : 1950 F 74 From: John Weinberg MD PCP: Cindy Mcpherson NP-C Status: REG CLI Study: Shoulder min 2 Views Date of Exam: 11/07/24 Exam# [id number] Ordering Dr: Edvin Armijo MD [id number] STUDY: X-RAY - LEFT SHOULDER REASON FOR EXAM: Female, 74 years old. Left shoulder pain. TECHNIQUE: 4 views of the left shoulder. COMPARISON: None. FINDINGS: There is mild glenohumeral arthrosis. There is mild acromioclavicular arthrosis. Normal acromion. Normal humeral head and visualized proximal humerus. The soft tissue structures are unremarkable. There is no demonstrated fracture. Normal visualized pulmonary apex. RAD/Shoulder min 2 Views IMPRESSION: Mild glenohumeral arthrosis and mild acromioclavicular arthrosis. No demonstrated fracture. Electronically Signed: John Weinberg MD at 13:25 EST Reading Location ID and State: [facility] / [place] , Service support , CC: [employer]OL[employer]-C Cindy Mcpherson; Dr. Edvin Armijo MD Crisis Clinician: Signed Normal [facility] PT D/C Summary (1)on 025 PT D/C Summary (1) [facility] Physical Therapy [facility] [address] [place] [address] [address] [place] [address] / REHABILITATION SERVICES DISCHARGE SUMMARY MR#: [id number] Acct: [id number] Name: CARMEN GARCIA Rep #: [id number] : 1950 74 From: Patsy CARNES Referring Dr.: VALENTIN Mcpherson Status: REG RCR Insurance: MEDICARE PART A B [employer] SR SUPPLEMENT INS Discharge Summary D/C summary: It has been my pleasure to treat CARMEN GARCIA referred by VALENTIN San, with the diagnosis of Quad muscle strain and R hip pain for a total of 10 visit(s). Discharge Date: 10/17/24 Please see the following information for a summary of their discharge status. Subjective Subjective: Pt has no pain. She gets achy sometimes but not a pain. She is doing her Home exercises. Pt asking about exercises and will try now to do them every other day. She has moved her washer and dryer upstairs and that is safer and nicer. She still feels that her R hip might get a little tight at times but walking with a cane helps keep her straight. Pain R hip pain: Pain Intensity (Out of 10): 0 Overall Improvement % Improvement: 80 Objective Objective/Function: Gait: walk with slight veering and slightly decreased step length. R hip flex 12.9 and L 13.4 R knee ext 25.2 and L 23.4 R knee flex 15.2 and L 13.5 R hip abd in supine 15.4 and L 11.9) Stairs: Up and down recip with 2 handrails with SBA Goals Goal 1:: I HEP Goal Progress: Goal Met Goal 2:: Be able to go up and down steps recip with handrails with no hesitation, pain, or weakness Goal Progress: Goal Met Goal 3:: Increase hip strength: (At time of the eval: R hip flex 9.5 and L 13.4 R knee ext 25.2 and L 23.4 R knee flex 15.2 and L 13.5 R hip abd in supine 15.4 and L 11.9) Goal Progress: Goal Met Goal 4:: Be able to walk with no antalgic gait Goal Progress: Goal Met Plan Plan: DC PT to HEP D/C Information Discharge Comments: DC PT to HEP d/c sentence: If there are questions or concerns regarding this patient's physical therapy, please feel free to call me at [phone]. Thank you for the referral of this patient. Sincerely, DEYVI Shields Balance/Gait/Functional tests Balance/Special Test Scores Lower Extremity Functional Score: 61 Improvement % Improvement: 80 10/17/24 1331 CC: VALENTIN Mcpherson Signed Normal [facility] Inital Evaluation (1) - PTon 09-14-2024 Inital Evaluation (1) - PT [facility] Physical Therapy [facility] [address] [place] [address] / REHABILITATION SERVICES INITIAL EVALUATION MR#: [id number] Acct: [id number] Name: CARMEN GARCIA Rep #: [id number] : 1950 74 From: Patsy CARNES Referring Dr.: VALENTIN San Status: REG RCR Insurance: MEDICARE PART A B AET[employer] SR SUPPLEMENT INS Patient's Visit Information Visit Information Visit Information: CARMEN GARCIA is a 74 year old F referred to Physical Therapy by VALENTIN San with a diagnosis of Quad muscle strain and R hip pain. Date of Evaluation: 09/14/24 Physical Therapist: DEYVI Shields Visit Plan Frequency: 2x /Week Duration: 4 Weeks Plan: 2X/ week for 4 weeks for stretching of the R hip flexor/Quad, hip ext ROM, core stability and hip strength, gait training, stairs with HEP HEP: LTR, Supine B QS, bridges Subjective Subjective: Thursday before Thanksgiving her dog was getting sick in her cage and she jumped out of bed before stretching. She pulled something and could hardly walk within a day. She reports that her Dr said it was her Quad muscle. [facility] because [facility] and they gave her prednisone and today is her last day of it. Thursday she was bringing her dog in and she went to go up a step with her R leg and it gave out and fell back onto the cement and could not get up. She went to her regular Dr on Thursday and used Tylenol through the Holiday. The day after she could walk a little bit because if she stood up it would stretch the R muscle. She went to a chiropractor and he stretched out her R Quad and back and could hardly get off the table. Now she is better and can walk straight up. Now she has a little numbness around the knee cap on the outside. She could not reach up over shoulders but now she can. The last 2 nights she can roll over onto her side. Hip x-rays were ok. She is able to drive ok as she has no pain with sitting. Pain R hip pain: Pain Intensity (Out of 10): 1 Pain Intensity Range: 1 Comment: with walking Objective Objective: Gait: walks with decrease stance time on the R LE. She feels like she is dragging the R leg LE MMT: R hip flex 9.5 and L 13.4 R knee ext 25.2 and L 23.4 R knee flex 15.2 and L 13.5 R hip abd in supine 15.4 and L 11.9 Bridge 1/2 normal ROM Heel and toe raises: She is able to heel and toe raises B with 1 hand on the mcclellan rail Tight HS B. Tight piriformis on the R more than the L. Hip PROM: Pt had no pain with hip flexion, IR/ER of the R leg but just felt a pulling Palpation: no tenderness along the R Quad muscle belly LTR: decreased ROM and tenderness with knees going to the L Balance/Special Test Scores Lower Extremity Functional Score: 63 Goals Goal 1:: I HEP Goal Time Frame: 6-8 Weeks Goal 2:: Be able to go up and down steps recip with handrails with no hesitation, pain, or weakness Goal Time Frame: 6-8 Weeks Goal 3:: Increase hip strength: (At time of the eval: R hip flex 9.5 and L 13.4 R knee ext 25.2 and L 23.4 R knee flex 15.2 and L 13.5 R hip abd in supine 15.4 and L 11.9) Goal Time Frame: 6-8 Weeks Goal 4:: Be able to walk with no antalgic gait Goal Time Frame: 6-8 Weeks Rehabilitation Potential Rehabilitation Potential: Good Anticipated Interventions Patient/Client Instruction: Educate patient on: Condition and Plan of Care For the Purpose of:: To decrease pain, To increase ROM, To improve nutrient delivery to tissue, To improve muscle performance and motor function, To improve ability to perform ADL's, To increase tolerance to activity/condition/posit ion, To improve performance and independence with ADL's, To decrease level of supervision to perform tasks, To improve ability of physical actions for home/community/work/leis ure, To improve gait and locomotor functions, To improve health of tissue, To decrease soft tissue restriction, To increase flexibility/ROM, To improve endurance and To improve balance Therapeutic Exercise to Include: Strength training, Endurance training, Balance training, Body mechanics, Postural training, Flexibilty training, Gait and locomotor training, Neuromotor development, Passive ROM, Active ROM and Dynamic Lumbar Stabilization For the Purpose of:: To decrease pain, To decrease swelling/inflammation, To increase ROM, To improve nutrient delivery to tissue, To improve muscle performance and motor function, To improve ability to perform ADL's, To increase tolerance to activity/condition/posit ion, To improve performance and independence with ADL's, To decrease level of supervision to perform tasks, To improve ability of physical actions for home/community/work/leis ure, To improve gait and locomotor functions, To improve health of tissue, To decrease soft tissue restriction, To increase flexibility (more content not included)... Normal [facility] HIP, UNI W/ Pelvis 2-3 Views on 09-07-2024 HIP, UNI W/ Pelvis 2-3 Views [facility] [address] [place] [address] HIP, UNI W/ Pelvis 2-3 Views MR#: [id number] Acct: [id number] Name: CARMEN GARCIA Rep #: [id number] : 1950 F 74 From: John Weinberg MD PCP: VALENTIN San Status: DEP AMB Study: HIP, UNI W/ Pelvis 2-3 Views Date of Exam: Exam# [id number] Ordering Dr: Cindy Mcpherson LEAD INGOT MOLDER-C [id number] STUDY: X-RAY - PELVIS AND RIGHT HIP REASON FOR EXAM: Female, 74 years old. HIP PAIN -- STAT TECHNIQUE: 3 views of the pelvis and right hip. COMPARISON: Pelvis and left hip radiographs dated 06/21/2024. FINDINGS: There is a non-specific bowel gas pattern. Normal visualized soft tissue structures. Normal bilateral iliac wings, sacroiliac joints and visualized sacrum. Normal bilateral superior and inferior pubic rami. Normal pubic symphysis. Normal bilateral ischial tuberosities. Intact visualized femoral head. There is mild osteoarthritic spur formation of the right acetabular rim. Intact hip joint. There is no demonstrated acute fracture. RAD/HIP, UNI W/ Pelvis 2-3 Views IMPRESSION: Mild degenerative arthrosis of the right hip joint. No demonstrated acute fracture. Electronically Signed: John Weinberg MD at 12:21 EST Reading Location ID and State: [address] [place] [address] , Service support , CC: VALENTIN Mcpherson Crisis Clinician: Signed Normal [facility] Urgent Care Visit Reporton 1 11-04-2023 Urgent Care Visit Report [facility] [address], [address] [place] [address] OFFICE VISIT Date of Service: 09/04/24 MR#: [id number] Acct: [id number] Name: CARMEN GARCIA Rep #: [id number] : 1950 Provider: VALENTIN mcneill Age/Sex: 74/F Location: [facility] Status: Signed Intake Vital Signs 06/21/24 12:57 09/04/24 09:49 09/04/24 12:12 Height 5 ft 3 in 5 ft 3 in 5 ft 3 in Weight: 196 lb 195 lb 2 oz BMI 34.7 34.5 BP 148/86 H 130/78 H Blood Pressure Location Lt brachial Rt brachial Position Sitting Sitting Respiration 15 14 Pulse 76 72 Pulse Source Monitor NIBP Temp 97.8 F 97.3 F L Temp Source Temporal Temporal Pulse Oximetry (%) 97 97 Oxygen Delivery Method room air room air Intake Visit Reasons: THIGH PAIN Chief Complaint: [employer] Required: No Is patient in pain?: No Allergies rosuvastatin (From Crestor) Allergy (Severe, Verified 09/04/24 12:13) Unknown ezetimibe (From Zetia) Allergy (Intermediate, Verified 09/04/24 12:13) Myalgia atorvastatin (From Lipitor) Allergy (Unknown, Verified 09/04/24 12:13) Unknown codeine Adverse Reaction (Intermediate, Verified 09/04/24 12:13) Chest pain ropinirole (From Requip) Adverse Reaction (Intermediate, Verified 09/04/24 12:13) Other Is last menstrual period known: No Post menopausal: No Patient : No Have you fallen in the past year?: No PFSH Medical History (Updated 09/04/24 @ 12:48 by Ramon Mclean LEAD INGOT MOLDER, LEAD INGOT MOLDER-C) Anxiety Acute gastroenteritis Eustachian tube dysfunction Hypercholesterolemia GERD (gastroesophageal reflux disease) Hypertensive heart disease without heart failure History of atrial flutter Tremor Headache Hypertension Hypothyroidism Parkinsons disease Back pain, lumbosacral Sessile colonic polyp Arthralgia Atypical mole Hip pain Fibromyalgia Pain in thoracic spine B12 deficiency Thyromegaly Fatigue History of dyspnea Sleep apnea Other and unspecified hyperlipidemia Vitamin D deficiency Dysthymic disorder Encounter for screening mammogram for breast cancer Essential tremor Surgical History History of cholecystectomy History of partial hysterectomy History of parathyroidectomy H/O thyroidectomy Family History Mother Breast cancer CVA (cerebral [...] use: sometimes HPI HPI Chief Complaint: Details: CARMEN GARCIA, is a 74 F who presents to the office today for right thigh and buttock pain. Yesterday she went to get up fast and thinks she pulled something. States that its very tight when she stands up straight and pulls and goes into waistline. ROS Const Constitutional: No body ache, chills, fatigue, fever(s) or headache(s) ENT ENT: No headache(s) Musc Musculoskeletal: Positive for abnormal gait and other (right upper leg pain); No limited range of motion, numbness or tingling Skin Skin: No rash Neuro Neurology: Positive for abnormal gait; No headache(s), numbness or tingling Endo Endocrine: No fatigue Exam Const General: cooperative, healthy appearing, comfortable and no acute distress Orientation: alert and awake Musc Other: Right thigh pain. This radiates to right hip area. Distal pulses 2+. Coding Level of Care Code Off vis,new,level 3 Diagnoses Right thigh pain M79.651 Assessment and Plan Assessment and Plan (1) Right thigh pain: Status: Acute Plan: This is worse with standing straight up. She is able to walk, though slowly. We discussed steroid therapy and muscle relaxer. She was encourage to be re-evaluated with PCP. We opted to avoid muscle relaxer due to age and concerns for fatigue. Encouraged to get plenty of rest, drink lots of clear liquids, and use Tylenol or Ibuprofen (unless contraindicated) for fever and comfort. Patient also educated on other symptomatic management techniques. To be seen in 7-10 days if no improvement; sooner if worsening of symptoms.??? Patient advised of potential red flags and when appropriate to report to the ED.??? Patient verbalized understanding and agreement with all the above. Medications: New prednisone 10 mg orally; 40mg x5 days, 20mg x5 days, 10mg x5 days 15 days 35 tabs 0RF Clinical Quality Graham (more content not included)... Normal [facility] PT D/C Summary (1)on 024 PT D/C Summary (1) [facility] Physical Therapy [facility] [address] [place] [address] / REHABILITATION SERVICES DISCHARGE SUMMARY MR#: [id number] Acct: [id number] Name: CARMEN GARCIAU Rep #: [id number] : 1950 74 From: Neftali ROBLEST, OCS, CSCS Referring Dr.: Dr. Edvin Armijo MD Status: REG RCR Insurance: MEDICARE PART A B AET[employer] SR SUPPLEMENT INS Discharge Summary D/C summary: It has been my pleasure to treat CARMEN GARCIA referred by Dr. Edvin Armijo MD, with the diagnosis of L hip pain, LBP for a total of 8 visit(s). Discharge Date: 08/16/24 Please see the following information for a summary of their discharge status. Subjective Subjective: back and hips killing me last week and saw chiropractor. Exercises seem to help at home adn in clinic. it loosens up. not much pain just gets achy. Sitting too long in hard chair is agitating or standing too long. Sleep is not great but not due to pain. Mowed lawn and will do it again this year. To Dr. Armijo. Feels like she can take it from here. Pain LBP: Pain Intensity (Out of 10): 0 B leg pain: Pain Intensity (Out of 10): 0 Overall Improvement % Improvement: 80 Objective Objective/Function: Good gait today with symmetrical step length and steps reciprocal with one rail and no pain. LB AROM is WFL adn without pain, just a little stiff. Goals Goal 1:: I appropriate HEP for home based postural, shoulder ROM, hip and core strength and general strength to I Goal Progress: Goal Met Goal 2:: Pt feel 50% better in overall mobility and achiness to 2/10 at worst Goal Progress: 80 Goal 3:: wake up in am without achiness. Goal Progress: Goal Met Goal 4:: return to [facility] law Goal Progress: Goal Met Plan Plan: d/c pt request. D/C Information d/c sentence: If there are questions or concerns regarding this patient's physical therapy, please feel free to call me at [phone]. Thank you for the referral of this patient. Sincerely, Neftali Mcpherson, TRAVIST, OCS, CSCS Balance/Gait/Functional tests Balance/Special Test Scores Functional Gait Assessment Score: 24 % Disability: 20.0000 Oswestry Low Back Score: 3 Improvement % Improvement: 80 08/16/24 1323 CC: LEAD INGOT MOLDERThomas Mcpherson; Dr. Edvin Armijo MD EBG Signed Normal [facility] Hepatitis C Antibodyon 08-08 Hepatitis C AB Non-Reactive Normal Nonreactive [facility] Comment on above: Order Comment: DR SHELL SANDOVAL [facility].[place] [place] ORDERED MARSHALL Result Comment: Non Reactive: < 0.8 Equivocal: >/= 0.8 to < 1.0 Reactive: >/= 1.0 The CDC requires that a reactive/equivocal HCV antibody result be sent out for confirmation. HCV Quant by PCR testing. Performed By: #### L 500.4050, L501.9520, L3890.6300 #### [facility] [address] [place], [address] Comprehensive Metabolic Prof ilon 08-06-2024 Albumin [Mass/Vol] 4.0 g/dL Normal 3.2-5.0 [facility] Comment on above: Order Comment: DR SHELL SANDOVAL [facility].[place] ORDERED MARSHALL Performed By: #### L 500.4050, L501.9520, L3890.6300 #### [facility] [address] [place], [address] Albumin/Globulin [Mass ratio] 1.1 {ratio} Normal 0.9-2.4 [facility] Comment on above: Order Comment: DR SHELL SANDOVAL [facility].[place] ORDERED MARSHALL Performed By: #### L 500.4050, L501.9520, L3890.6300 #### [facility] [address] [place], [address] ALK P 84 U/L Normal 45-117 [facility] Comment on above: Order Comment: DR SHELL SANDOVAL [facility].[place] ORDERED MARSHALL Performed By: #### L 500.4050, L501.9520, L3890.6300 #### [facility] [address] [place], [address] ALT [Catalytic activity/Vol] 16 U/L Normal 13-56 [facility] Comment on above: Order Comment: DR SHELL SANDOVAL CMP.T[facility] LEAD INGOT MOLDER.[place] ORDERED MARSHALL Performed By: #### L 500.4050, L501.9520, L3890.6300 #### [facility] [address] [place], [address] AST [Catalytic activity/Vol] 15 U/L Normal 15-37 [facility] Comment on above: Order Comment: DR SHELL SANDOVAL CMP.[place] LEAD INGOT MOLDER.[place] ORDERED MARSHALL Performed By: #### L 500.4050, L501.9520, L3890.6300 #### [facility] [address] [place], [address] Bilirubin [Mass/Vol] 0.80 mg/dL Normal 0.20-1.00 [facility] Comment on above: Order Comment: DR SHELL SANDOVAL CMP.[place] LEAD INGOT MOLDER.[place] ORDERED MARSHALL Result Comment: For patients on eltrombopag therapy, use of Dimension [place] TBIL is not recommended. Performed By: #### L 500.4050, L501.9520, L3890.6300 #### [facility] [address] [place], [address] BUN/CRE 18.1 RATIO Normal 10-20 [facility] Comment on above: Order Comment: DR SHELL SANDOVAL CMP.TSH LEAD INGOT MOLDERGeorgetteKY ORDERED MARSHALL Performed By: #### L 500.4050, L501.9520, L3890.6300 #### [facility] [address] [place], [address] CA,Total 9.5 mg/dL Normal 8.5-10.1 [facility] Comment on above: Order Comment: DR SHELL SANDOVAL CMP.TSH LEAD INGOT MOLDERISIDRA ORDERED MARSHALL Performed By: #### L 500.4050, L501.9520, L3890.6300 #### [facility] [address] [place], [address] Chloride [Moles/Vol] 108 mmol/L High 98-107 [facility] Comment on above: Order Comment: DR SHELL SANDOVAL [facility].[place] ORDERED MARSHALL Performed By: #### L 500.4050, L501.9520, L3890.6300 #### [facility] [address] [place], [address] CO2 [Moles/Vol] 27.0 mmol/L Normal 21.0-32.0 [facility] Comment on above: Order Comment: DR SHELL SANDOVAL [facility].[place] ORDERED MARSHALL Performed By: #### L 500.4050, L501.9520, L3890.6300 #### [facility] [address] [place], [address] Creatinine [Mass/Vol] 0.99 mg/dL Normal 0.55-1.02 [facility] Comment on above: Order Comment: DR SHELL SANDOVAL [facility].[place] ORDERED MARSHALL Result Comment: The validity of the calculated GFR GFRAA in patients over 70 years has not been determined. Clinical correlation is essential. Performed By: #### L 500.4050, L501.9520, L3890.6300 #### [facility] [address] [place], [address] EST GFR - AA 70 mL/min Normal >60 [facility] Comment on above: Order Comment: DR SHELL SANDOVAL [facility].[place] ORDERED MARSHALL Result Comment: Afri can Libyan GFR Calc Performed By: #### L 500.4050, L501.9520, L3890.6300 #### [facility] [address] [place], [address] GAP 4 Low 5-15 [facility] Comment on above: Order Comment: DR SHELL SANDOVAL CMP.[place] ORDERED MARSHALL Performed By: #### L 500.4050, L501.9520, L3890.6300 #### [facility] [address] [place], [address] GFR/1.73 sq M.predicted among non-blacks MDRD (S/P/Bld) [Vol rate/Area] 58 mL/min/{1.73_m2} Low >60 [facility] Comment on above: Order Comment: DR SHELL CAMARENAED CMP.TSH LEAD INGOT MOLDER.[place] ORDERED MARSHALL Result Comment: Non- GFR Calc Performed By: #### L 500.4050, L501.9520, L3890.6300 #### [facility] [address] [place], [address] Globulin (S) [Mass/Vol] 3.8 g/dL Normal 2.2-4.2 [facility] Comment on above: Order Comment: DR SHELL SANDOVAL CMP.TSH LEAD INGOT MOLDER.[place] ORDERED MARSHALL Performed By: #### L 500.4050, L501.9520, L3890.6300 #### [facility] [address] [place], [address] Glucose [Mass/Vol] 90 mg/dL Normal 74-106 [facility] Comment on above: Order Comment: DR SHELL SANDOVAL CMP.TSH LEAD INGOT MOLDERISIDRA ORDERED MARSHALL Performed By: #### L 500.4050, L501.9520, L3890.6300 #### [facility] [address] [place], [address] Potassium [Moles/Vol] 4.1 mmol/L Normal 3.5-5.1 [facility] Comment on above: Order Comment: DR SHELL SANDOVAL CMP.TSH LEAD INGOT MOLDERISIDRA ORDERED MARSHALL Performed By: #### L 500.4050, L501.9520, L3890.6300 #### [facility] [address] [place], [address] Sodium [Moles/Vol] 139 mmol/L Normal 136-145 [facility] Comment on above: Order Comment: DR SHELL SANDOVAL CMP.TSH LEAD INGOT MOLDERISIDRA ORDERED MARSHALL Performed By: #### L 500.4050, L501.9520, L3890.6300 #### [facility] [address] [place], [address] T PROT 7.8 g/dL Normal 6.4-8.2 [facility] Comment on above: Order Comment: DR SHELL CAMARENAED CMP.TSH LEAD INGOT MOLDERISIDRA ORDERED MARSHALL Performed By: #### L 500.4050, L501.9520, L3890.6300 #### [facility] [address] [place], [address] Urea nitrogen [Mass/Vol] 18 mg/dL Normal 7-18 [facility] Comment on above: Order Comment: DR SHELL SANDOVAL CMP.TSH LEAD INGOT MOLDERISIDRA ORDERED MARSHALL Performed By: #### L 500.4050, L501.9520, L3890.6300 #### [facility] [address] [place], [address] Thyroid Stim Hormone (TSH)on 08-06-2024 TSH 2.440 uIU/mL Normal 0.358-3.740 [facility] Comment on above: Order Comment: DR SHELL SANDOVAL CMP.TSH LEAD INGOT MOLDERISIDRA ORDERED MARSHALL Performed By: #### L 500.4050, L501.9520, L3890.6300 #### [facility] [address] [place], [address] Inital Evaluation (1) - PTon 07-20-2024 Inital Evaluation (1) - PT [facility] Physical Therapy Health[address] [place] [address] / REHABILITATION SERVICES INITIAL EVALUATION MR#: [id number] Acct: [id number] Name: CARMEN GARCIA ABHI Rep #: [id number] : 1950 74 From: Neftali Ky DPT, OCS, CSCS Referring Dr.: Dr. Edvin Armijo MD Status: REG RCR Insurance: MEDICARE PART A B AETNA SR SUPPLEMENT INS Patient's Visit Information Visit Information Visit Information: CARMEN GARCIA is a 74 year old F referred to Physical Therapy by Dr. Edvin Armijo MD with a diagnosis of L hip pain, LBP. Date of Evaluation: 07/20/24 Physical Therapist: Neftali Mcpherson DPT, OCS, CSCS Visit Plan Frequency: 2x /Week Duration: 4-6 Weeks Plan: 2x/week for 4-6 weeks for 1. please teach general overall home based strength ex with pics for core, legs, posture, back and joint ROM and work to I with pics. Include some dynamic balance with bending and turning and multi tasking. IE: HEP Educate on HEP of laq, slouch-overcorrect and seated marching and frequent short walks throughout day. Subjective Subjective: Lb and leg pain with standing and walking. Been there for a year or so. Not sure why it started. Back aches most of time dull. Night twitching sometimes and hard to get comfortable. Gets about 6 hours of sleep. No numbness or tingling. Comfortable at rest. Walking it starts aching in short order. Not employed, retired. Spends day: sitting more than she should, can get housework done, steps to basement with railing does 3x and fatigues quickly. Fatigued. No regular exercises, used to go to [place] [employer] weekly but not lately due to hips and back. Walking made it ache. Basic ADLs: dresses self, bathroom I, shower I in walk in shower. hobbies: bingo. Pain LBP: Pain Intensity (Out of 10): 0 Pain Intensity Range: 0 and 3 Comment: 0 at rest. B leg pain: Pain Intensity (Out of 10): 0 Pain Intensity Range: 0 and 3 Objective Objective: Flat affect on face but friendly. Walsk with short steps and stiff spine but I without AD. Good balance. Trasnfers chair with UE and can do without. Stpes reciprocal with one rail. bed trasnfer is I. cervical aROM 40 rotations, UE AROM to 100 on her own but can get higher with cues. LE AROM hips ext 5 B, abd 14 B, flexion 100 B, er 45 and ir 5 R with pain and 7 L. + FADDIR on R and - VELIA B. - slump and - SLR. HS tightness and quad tightness obvious with movements and -30 90/90 test. reflexes 2/3 patella adn achilles B. sensation LE WNL to gross light touch. [id number] hips 3/5 abd and ext adn rotations, flexion 3+ B, knee ext and flexion 4-, ankles 4- all B. Slow movement of all joints and tends to sit still and walk stiff. LB AROM ext mod limited and flexion min limited and SB B mod limited, no pain. Balance/Special Test Scores Functional Gait Assessment Score: 24 % Disability: 20.0000 Oswestry Low Back Score: 5 Goals Goal 1:: I appropriate HEP for home based postural, shoulder ROM, hip and core strength and general strength to I Goal Time Frame: 4-6 Weeks Goal 2:: Pt feel 50% better in overall mobility and achiness to 2/10 at worst Goal Time Frame: 4-6 Weeks Goal 3:: wake up in am without achiness. Goal Time Frame: 4-6 Weeks Goal 4:: return to [place] Goal Time Frame: 4-6 Weeks Rehabilitation Potential Physical Therapy Diagnosis: stiffness and diminished ROM and strength limiting funciton. Rehabilitation Potential: Good Anticipated Interventions Patient/Client Instruction: Educate patient on: Condition and Plan of Care For the Purpose of:: To decrease pain, To increase ROM, To improve nutrient delivery to tissue, To improve muscle performance and motor function and To improve gait and locomotor functions Therapeutic Exercise to Include: Strength training, Flexibilty training, Gait and locomotor training, Passive ROM and Active ROM For the Purpose of:: To decrease pain, To increase ROM, To improve nutrient delivery to tissue, To improve muscle performance and motor function and To improve gait and locomotor functions Thermo therapy (hot pack): Yes For the Purpose of:: To decrease pain Text: Thank you for the opportunity to evaluate your patient. For Medicare and Medicare HMO plans, please review the plan of care and approve it. It will need to be FAXED BACK to us at [phone] for Medicare purposes. For Medicare only, by signing this I certify the plan of care. Please let me know if there are questions or concerns regarding this plan of care. Physician Signature: Date: ____ 07/20/24 1357 CC: VALENTIN Mcpherson; Dr. Edvin Armijo MD EBG Signed Normal [facility] HIP, UNI W/ Pelvis 2-3 Views on 06-21-2024 HIP, UNI W/ Pelvis 2-3 Views [facility] Imaging Services [address] [place] [address] HIP, UNI W/ Pelvis 2-3 Views MR#: [id number] Acct: [id number] Name: CARMEN GARCIA Rep #: [id number] : 1950 F 74 From: Eusebio craig MD PCP: VALENTIN San Status: REG CLI Study: HIP, UNI W/ Pelvis 2-3 Views Date of Exam: 08/04 Exam# [id number] Ordering Dr: Edvin Armijo MD [id number] INDICATION: left hip pain EXAMINATION/TECHNIQUE: X-RAY - XR Hip Unilateral with Pelvis when performed; 2-3 Views COMPARISON: Prior study dated: 08/07/2016 FINDINGS: PELVIC BONES: No displaced fracture, destructive or sclerotic lesions. Note that overlapping bowel shadows may however obscure fine detail. Sacroiliac joints are unremarkable. No widening of the pubic symphysis. HIPS: The hips are well aligned with mild degenerative change. Subchondral sclerosis with small osteophytes noted. No displaced fracture seen in this frontal view. SOFT TISSUES: No soft tissue swelling or gas. RAD/HIP, UNI W/ Pelvis 2-3 Views IMPRESSION: No evidence of displaced pelvic or hip fracture. Mild degenerative changes of the hips. Electronically Signed: Eusebio Solo MD at 17:16 EDT , CC: VALENTIN Mcpherson; Dr. Edvin Armijo MD Crisis Clinician: Signed Normal [facility] Lumbar Spine 2 or 3 Viewson 06-21-2024 Lumbar Spine 2 or 3 Views [facility] Imaging Services [address] [place] [address] Lumbar Spine 2 or 3 Views MR#: [id number] Acct: [id number] Name: CARMEN GARCIA Rep #: [id number] : 1950 F 74 From: Eusebio craig MD PCP: VALENTIN San Status: REG CLI Study: Lumbar Spine 2 or 3 Views Date of Exam: Exam# [id number] Ordering Dr: Edvin Armijo MD [id number] INDICATION: low back pain EXAMINATION/TECHNIQUE: X-RAY - XR Spine Lumbar 2 or 3 Views COMPARISON: Prior study dated: 05/05/2019 FINDINGS: VERTEBRAE: Preserved vertebral body height. No fracture. No spondylolisthesis. Preservation of the normal lumbar lordosis. Diffuse facet arthropathy. DISCS: Disc space narrowing throughout, greatest at L4-L5 and L5-S1. Small endplate osteophytes throughout. INCLUDED ABDOMEN: Included bowel gas pattern is non-obstructive. RAD/Lumbar Spine 2 or 3 Views IMPRESSION: No evidence of lumbar spinal fracture or spondylolisthesis. Mild to moderate degenerative change which has progressed from prior. Electronically Signed: Eusebio Solo MD at 17:14 EDT , CC: VALENTIN Mcpherson; Dr. Edvin Armijo MD Crisis Clinician: Signed Normal [facility] Neurology Visit Reporton Neurology Visit Report [facility] [address], [address] [place] [address] OFFICE VISIT Date of Service: 06/21/24 MR#: [id number] Acct: [id number] Name: CARMEN GARCIA Rep #: [id number] : 1950 Provider: Dr. Edvin holland MD Age/Sex: 74/F Location: [facility] Status: Signed with Addenda ADDENDUM by Dr. Edvin Armijo MD on 06/27/24 at 1719 Addendum Addendum (06/27/2024): Right hip x-rays (06/21/2024): FINDINGS: PELVIC BONES: No displaced fracture, destructive or sclerotic lesions. Note that overlapping bowel shadows may however obscure fine detail. Sacroiliac joints are unremarkable. No widening of the pubic symphysis. HIPS: The hips are well aligned with mild degenerative change. Subchondral sclerosis with small osteophytes noted. No displaced fracture seen in this frontal view. SOFT TISSUES: No soft tissue swelling or gas. IMPRESSION: No evidence of displaced pelvic or hip fracture. Mild degenerative changes of the hips. These images were reviewed on 06/27/2024. Lumbar x-rays (06/21/2024): FINDINGS: VERTEBRAE: Preserved vertebral body height. No fracture. No spondylolisthesis. Preservation of the normal lumbar lordosis. Diffuse facet arthropathy. DISCS: Disc space narrowing throughout, greatest at L4-L5 and L5-S1. Small endplate osteophytes throughout. INCLUDED ABDOMEN: Included bowel gas pattern is non-obstructive. IMPRESSION: No evidence of lumbar spinal fracture or spondylolisthesis. Mild to moderate degenerative change which has progressed from prior. These images were reviewed on 06/27/2024. Flurbiprofen is causing dyspepsia and will be discontinued. Celecoxib 100 mg twice daily as needed will be prescribed for her musculoskeletal pain. 06/27/24 1719 Date Edvin Armijo MD cc: * Signed HPI [facility] Chief Complaint: Details: Interim History: Carmen returns [...] for her gait. She felt that she continued to shuffle. She has micrographia. She [...] took an iron supplement prescribed by a wire saw operator after having a period of rectal bleeding in 2020. Labs checked in 2021 revealed normal iron and ferritin levels and a CBC did not reveal anemia. She has had bilateral thigh muscle tightness pain. She has some chronic intermittent low back pain. She has pain in the hips (left greater than right). Her low back pain and left hip pain have worsened recently. Advil has been of modest benefit. Her carotid ultrasound from 11/2019 revealed less than 50% stenosis of the right internal carotid artery and 50-69% stenosis of the left internal carotid artery. A repeat carotid ultrasound (December 2022) at the [facility] in [place] revealed no significant change from 12/16/2021; 20-39% stenosis was noted in the internal carotid arteries bilaterally; vertebral flow was antegrade bilaterally. She sees a vascular surgeon, Dr. Avila, for management of her carotid stenosis. She does not have any history of symptomatic cerebrovascular disease. Her head MRI from 2017 showed minimal chronic small vessel ischemic disease. She did not tolerate various lipid-lowering agents. Her lipid panel from 05/2021 was normal. She takes aspirin 81mg daily. Her vitamin D level was elevated in May 2021, and her vitamin D 1.25mg supplement was previously decreased to twice monthly by Dr. Weinstein. Meloxicam was not of benefit for her musculoskeletal pain. Physi (more content not included)... Normal [facility] SCRN MAMM (CAD)W/ROBERTO BILATo n 05-18-2024 SCRN MAMM (CAD)W/ROBERTO BILAT [facility] Imaging Services [address], [place] [id number] SCRN MAMM (CAD)W/ROBERTO BILAT MR#: [id number] Acct: [id number] Name: CARMEN GARCIA Rep #: [id number] : 1950 F 74 From: Jorge durham MD PCP: VALENTIN San Status: [facility] Study: SCRN MAMM (CAD)W/ROBERTO BILAT Date of Exam: 05/04 Exam# [id number] Ordering Dr: Cindy Mcpherson [id number] MAMMOGRAPHY - BILATERAL SCREENING REASON FOR EXAM: Female, 74 years old. Routine annual screening examination. PERTINENT HISTORY: Mother with breast cancer. Aunts with breast cancer. TECHNIQUE: Digital bilateral breast roberto (3D mammographic acquisition) in the CC and MLO projections. 2-D mediolateral oblique (MLO) and craniocaudad (CC) views of both breasts were obtained. CAD: Full Field Digital Mammography with Computer Added Detection was performed. COMPARISON: Comparison is made with prior study dated May 15, 2023 and May 12, 2022. FINDINGS: Breast Composition: There are scattered areas [...] delay biopsy of a clinically suspicious abnormality. [id number] Electronically Signed: Jorge Johnson MD at 13:28 EDT , CC: VALENTIN Mcpherson Crisis Clinician: Signed [facility] Office Visit (VASSWS ) -------- ACRMEN GARCIA ([id number]) 1950 F Date Time Provider Department 02/09/24 9:15 AM MARICRUZ ARMSTRONG VASSWS During your visit today, we recorded the following information about you: Pulse Blood pressure 82/minute 125/74 Maricruz Armstrong, DO 02/09/2024 11:54 AM Signed [facility] [place] DEPARTMENT OF VASCULAR SURGERY OUTPATIENT VISIT DATE [...] PO DAILY April 18, 2020 9:41am 04-18-2020 [facility] ([id number]) levothyroxine 112 mcg tab 112 mcg, levothyroxine [...] DATE: February 09, 2024 TIME: 9:30 AM Allergies As of Date: 02/09/2024 Noted Allergy Reaction CODEINE 12/05/2019 16 - Unknown CRESTOR (ROSUVASTATIN) 12/05/2019 16 - Unknown 17 - Myalgia LIPITOR (ATORVASTATIN) 12/05/2019 17 - Myalgia ZETIA (EZETIMIBE) 12/05/2019 17 - Myalgia Date Reviewed: 02/09/2024 Reviewed by: Marlyn Frost OCCA - Fully Assessed Reason for Visit: Establish (more content not included)... Normal [facility] [place] Basophil percentageOrdered B y: Alan Sánchez on 12-24-2023 Bilirubin [Mass/Vol] 0.40 mg/dL 0.20-1.00 [facility] Comment on above: For patients on eltr ombopag therapy, use of Dimension [place] TBIL is not recommended. Chloride [Moles/Vol] 110 mmol/L 98-107 [facility] Cholesterol [Mass/Vol] 187 mg/dL <200 [facility] Comment on above: <200 mg/dL Desirable 200-240 mg/dL Borderline >240 mg/dL High Risk Glucose [Mass/Vol] 87 mg/dL 74-106 [facility] Potassium [Moles/Vol] 4.6 mmol/L 3.5-5.1 [facility] Protein [Mass/Vol] 7.4 g/dL 6.4-8.2 [facility] Sodium [Moles/Vol] 142 mmol/L 136-145 [facility] Triglyceride [Mass/Vol] 126 mg/dL <199 [facility] Comment on above: The drugs N-Acetylcy steine and Metamizole may falsely depress this assay.Serum Triglycerides Reference Interval Normal <150 mg/dL Borderline high 150 - 199 mg/dL High 200 - 499 mg/dL Very High > or = 500 mg/dL Laboratory - Chemistry and C hemistry - challengeOrdered By: Alan Sánchez on 12-24-2023 Albumin/Globulin [Mass ratio] 1.0 {ratio} 0.9-2.4 [facility] ALP [Catalytic activity/Vol] 102 U/L 45-117 [facility] ALT [Catalytic activity/Vol] 12 U/L 13-56 [facility] Cholesterol in HDL [Mass/Vol] 53 mg/dL >40 [facility] Comment on above: The drugs N-Acetylcy steine and Metamizole may falsely depress this assay. Reference Range HDL <40 mg/dL Low HDL Cholesterol HDL >or= 60 mg/dL High HDL Cholesterol Cholesterol in LDL [Mass/Vol] 109 mg/dL 0-130 [facility] CO2 [Moles/Vol] 25.0 mmol/L 21.0-32.0 [facility] Ferritin [Mass/Vol] 108 ng/mL 8-252 [facility] Globulin (S) [Mass/Vol] 3.7 g/dL 2.2-4.2 [facility] Magnesium [Mass/Vol] 2.6 mg/dL 1.6-2.6 [facility] Urea nitrogen/Creatinine [Mass ratio] 17.6 mg/mg 10-20 [facility] No Panel InformationOrdered By: Alan Sánchez on 12-24-2023 Estimated GFR (MDRD) Amer 78 mL/min >60 [facility] Comment on above: GFR Calc Estimated GFR (MDRD) Non-Af Amer 64 mL/min >60 [facility] Comment on above: Non- GFR Calc Vitamin D 25-Hydroxy 74.8 ng/mL [facility] Comment on above: Vitamin D 25(OH) Sta tus Range Deficiency <20 ng/mL (50nmol/L) Insufficiency 20 - 30 ng/mL (50 - 75 nmol/L) Sufficiency 30 - 100 ng/mL (75 - 250 nmol/L) Toxicity >100 ng/mL (>250 nmol/L) VLDL Cholesterol 25 mg/dL 5-40 [facility] Serum or plasma calcium graham urement (mass/volume)Ordered By: Alan Sánchez on 12-24-2023 Calcium [Mass/Vol] 9.2 mg/dL 8.5-10.1 [facility] Serum or plasma creatinine m easurement (mass/volume)Ordered By: Alan Sánchez on 12-24-2023 Creatinine [Mass/Vol] 0.91 mg/dL 0.55-1.02 [facility] Comment on above: The validity of the calculated GFR & GFRAA in patients over 70 years has not been determined. Clinical correlation is essential. Serum or plasma thyroid stim ulating hormone (TSH) measurement (units/volume)Ordered By: Alan Sánchez on 12-24-2023 TSH Qn 0.97 uIU/mL 0.358-3.74 [facility] Serum or plasma urea nitroge n measurement (mass/volume)Ordered By: Alan Sánchez on 12-24-2023 Urea nitrogen [Mass/Vol] 16 mg/dL 7-18 [facility] Thin prep Papanicolaou smear with manual screeningOrdered By: Alan Sánchez on 12-24-2023 Thin prep Papanicolaou smear with manual screening 3.7 g/dL 3.2-5.0 [facility] Thin prep Papanicolaou smear with manual screening 16 U/L 15-37 [facility] Thin prep Papanicolaou smear with manual screening 7 5-15 [facility] CNPNon 12-23-2023 CNPN Telephone (AGVASACC) -------- CARMEN GARCIA ([id number]) 1950 F Date Time Provider Department 12/23/23 LINDSEY SHULTZ AGVASACC During your visit today, we recorded the following information about you: Erica Fierro 12/23/2023 8:33 AM Signed Spoke to Pt about her need for an annual follow up visit. Pt wanted to remain w/ vascular in [place]. Provided Dr. Armstrong's name AND phone #[phone]. Allergies As of Date: 12/23/2023 Noted Allergy Reaction CODEINE 12/05/2019 16 - Unknown CRESTOR (ROSUVASTATIN) 12/05/2019 16 - Unknown 17 - Myalgia LIPITOR (ATORVASTATIN) 12/05/2019 17 - Myalgia ZETIA (EZETIMIBE) 12/05/2019 17 - Myalgia Date Reviewed: 01/09/2022 Reviewed by: Andree London LPN - Fully Assessed Reason for Visit: Appointment [[id number]] Cmt: Appointment Prescriptions as of 12/23/2023 - ferrous sulfate (IRON) 325 mg (65 mg iron) tablet Take 325 mg by mouth daily with breakfast. - ascorbic acid, vitamin C, (VITAMIN C) 500 mg tablet Take 500 mg by mouth once daily. - ZINC ORAL Take by mouth once daily. - mecobalamin, vitamin B12, 1,000 mcg chew mecobalamin Mecobalamin (B12 Active) 1,000 mcg tablet,chewable Active 100 MCG PO DAILY April 18, 2020 9:41am 04-18-2020 [facility] ([id number]) - levothyroxine 112 mcg tab 112 mcg, levothyroxine 25 mcg tab 25 mcg Take 1 tablet by mouth DAILY (6 AM). - carbidopa-levodopa (SINEMET 25-100) 25-100 mg per tablet Take 1 tablet by mouth three times daily. - meloxicam (MOBIC) 7.5 mg tablet Take 7.5 mg by mouth once daily. - metoprolol tartrate, short acting, (LOPRESSOR) 50 mg tablet Take 50 mg by mouth. - rOPINIRole (REQUIP) 0.5 mg tablet Take 1 tablet by mouth three times daily. - aspirin, enteric coated (ASPIRIN, ENTERIC COATED) 81 mg EC tablet Take 81 mg by mouth once daily. - Hydrochlorothiazide 12.5 mg capsule Take 12.5 mg by mouth once daily. - ergocalciferol 50,000 unit capsule (VITAMIN D2, DRISDOL) Take 50,000 Units by mouth one time a week. - Garlic (GARLIC OIL) 1,000 mg cap Take 1,000 mg by mouth once daily. - calcium carbonate (CALCIUM 600) 600 mg calcium (1,500 mg) tab Take 600 mg by mouth. - irbesartan (AVAPRO) 300 mg tablet Take 300 mg by mouth daily at bedtime. - omega-3 fatty acids 1,000 mg cap Take 1,000 mg by mouth once daily. - Magnesium Oxide 500 mg cap Take 500 mg by mouth once daily. Problem List As Of Date: 12/23/2023 (None) Encounter Status:Closed by ERICA FIERRO on 12/23/23 [facility] US CAROTID ARTERIES [facility]on 12-22-2023 US CAROTID ARTERIES [facility] Non-Invasive Vascular Laboratory [facility] Carotid Duplex Bilateral/Complete Date of service/time: 12/22/2023 1:32:31 PM Name: CARMEN GARCIA Date of : 1950 Age: 73 years Gender: F Clinical Indication Follow-up study on a patient with known carotid disease. TECHNIQUE -------- A carotid duplex ultrasound examination was performed, including grayscale imaging and color Doppler and spectral Doppler examination of the below mentioned arteries. FINDINGS -------- RIGHT SIDE Common carotid artery: Origin: PSV: 111 cm/s. EDV: 20 cm/s. Proximal: PSV: 102 cm/s. EDV: 20 cm/s. Mid: PSV: 100 cm/s. EDV: 22 cm/s. Distal: PSV: 92 cm/s. EDV: 20 cm/s. Mild heterogeneous plaque at distal. Internal carotid artery: Origin: PSV: 92 cm/s. EDV: 24 cm/s. Proximal: PSV: 88 cm/s. EDV: 21 cm/s. Mid: PSV: 96 cm/s. EDV: 25 cm/s. Distal: PSV: 93 cm/s. EDV: 26 cm/s. Mild heterogeneous plaque at origin. ICA/CCA Ratio: 1.0 External carotid artery: Origin: PSV: 109 cm/s. EDV: 14 cm/s. Subclavian artery: Origin: PSV: 136 cm/s. EDV: 0 cm/s. Innominate artery: PSV: 73 cm/s. EDV: 0 cm/s. Vertebral artery: PSV: 42 cm/s. EDV: 9 cm/s. LEFT SIDE Common carotid artery: Proximal: PSV: 115 cm/s. EDV: 18 cm/s. Mid: PSV: 95 cm/s. EDV: 20 cm/s. Distal: PSV: 86 cm/s. EDV: 20 cm/s. Internal carotid artery: Origin: PSV: 75 cm/s. EDV: 13 cm/s. Proximal: PSV: 91 cm/s. EDV: 19 cm/s. Mid: PSV: 77 cm/s. EDV: 21 cm/s. Distal: PSV: 79 cm/s. EDV: 25 cm/s. Mild heterogeneous plaque at origin. ICA/CCA Ratio: 1.1 External carotid artery: Origin: PSV: 87 cm/s. EDV: 10 cm/s. Mild homogeneous plaque at origin. Subclavian artery: Proximal: PSV: 131 cm/s. EDV: 0 cm/s. Vertebral artery: PSV: 54 cm/s. EDV: 12 cm/s. IMPRESSION Compared to prior study of 12/16/2022, No significant change. RIGHT SIDE Common carotid artery: Plaque visualized without evidence of hemodynamically significant stenosis. Internal carotid artery: 20-39% stenosis. Vertebral artery: Patent and antegrade flow noted. LEFT SIDE Internal carotid artery: 20-39% stenosis. Vertebral artery: Patent and antegrade flow noted. Technologist: Cheri Potts RVT, RDMS Ordering physician: VIOLA MOSS Interpreting physician: JODY Mcclellan DO Final CC [facility] Image : [id number] See Link below for Image Normal [facility] Final Surgical Pathology Rep [facility] 08-24-2023 Final Surgical Pathology Report . Pathology Reports Accession: Collected Date/Time: Received Date/Time: Pathologist: [id number] 08/21/2023 09:58 EST 08/21/2023 14:33 EST YAIR PENNY MD Final Surgical Pathology Report DIAGNOSIS: MID ASCENDING COLON POLYP: - TUBULAR ADENOMA CLINICAL INFORMATION: HISTORY COLON POLYP IN CECUM Procedure: COLONOSCOPY WITH POLYPECTOMY Preoperative diagnosis: HISTORY COLON POLYP IN CECUM Postoperative diagnosis: HISTORY COLON POLYP IN CECUM SPECIMEN: A MID ASCENDING COLON POLYP GROSS DESCRIPTION: All parts labelled with patient name and [id number] Received in formalin labeled mid ascending colon polyp are 4 greene-pink tissue fragments measuring less than 0.1 to 0.2 cm. The smallest fragment may not survive processing. TS-1 Tamela Rosado, Grossing Coke Worker/ Dr. Glen Adler, Pathologist Dictated by Tamela Rosado MICROSCOPIC DESCRIPTION: The microscopic examination is performed, except in the case of Gross Only. Electronically Signed by Pathology Report verified by [facility] YAIR PENNY Sign out Date: 08/24/2023 11:00 Performing Lab: [facility], [address] [place] [address] Pathology Dept Disclaimer If ancillary studies were utilized, the following Laboratory Developed Test (LDT) disclaimer will apply: Under CLIA requirements, [facility] is qualified to perform high complexity testing. For all ancillary stains, positive and negative controls stain appropriately. Performance characteristics of immunohistochemical and chromogenic in-situ hybridization tests have been determined by [facility]. These tests are used for clinical purposes, They should not be regarded as investigational or for research. Normal [facility] ([place]) Absolute lymphocyte countOrd ered By: Cindy Mcpherson on 02-24-2023 Lymphocytes Auto (Unsp spec) [#/Vol] 1.82 10*3/uL 0.83-4.51 [facility] Basophil percentageOrdered B y: Cindy Ky on 02-24-2023 Basophils/100 WBC (Bld) 0.7 % 0-1 [facility] Bilirubin [Mass/Vol] 0.70 mg/dL 0.20-1.00 [facility] Comment on above: For patients on eltr ombopag therapy, use of Dimension [place] TBIL is not recommended. Chloride [Moles/Vol] 105 mmol/L 98-107 [facility] Eosinophils/100 WBC (Bld) 2.7 % 0-5 [facility] Glucose [Mass/Vol] 93 mg/dL 74-106 [facility] Neutrophils (Bld) [#/Vol] 4.2 10*3/uL 2.0-7.7 [facility] Neutrophils/100 WBC (Bld) 62.4 % 47-70 [facility] Potassium [Moles/Vol] 4.5 mmol/L 3.5-5.1 [facility] Comment on above: Slight Hemolysis, Re sult may be falsely increased. Protein [Mass/Vol] 8.0 g/dL 6.4-8.2 [facility] Sodium [Moles/Vol] 140 mmol/L 136-145 [facility] WBC (Bld) [#/Vol] 6.7 10*3/uL 4.4-11.0 [facility] Blood erythrocytes count (nu mber/volume)Ordered By: Cindy Mcpherson on 02-24-2023 RBC (Bld) [#/Vol] 4.79 10*6/uL 4.2-5.4 [facility] Blood hemoglobin measurement (mass/volume)Ordered By: Cindy Mcpherson on 02-24-2023 Hemoglobin (Bld) [Mass/Vol] 14.6 g/dL 12.0-15.0 [facility] Blood lymphocytes/100 leukoc ytesOrdered By: Cindy Mcpherson on 02-24-2023 Lymphocytes/100 WBC (Bld) 27.1 % 19-41 [facility] Blood monocytes/100 leukocyt esOrdered By: Cindy Mcpherson on 02-24-2023 Monocytes/100 WBC (Bld) 6.8 % 0-10 [facility] Blood platelet mean volumeOr dered By: Cindy Mcpherson on 02-24-2023 Platelet mean volume (Bld) [Entitic vol] 8.6 fL 6.2-12.0 [facility] Determination of erythrocyte mean corpuscular volume (MCV)Ordered By: Cindy Mcpherson on 02-24-2023 MCV (RBC) [Entitic vol] 93.9 fL 81-99 [facility] Hematocrit Auto (Bld) [Volum e fraction]Ordered By: Cindy Mcpherson on 02-24-2023 Hematocrit (Bld) [Volume fraction] 45.0 % 37-47 [facility] Laboratory - Chemistry and C hemistry - challengeOrdered By: Cindy Mcpherson on 02-24-2023 ALP [Catalytic activity/Vol] 112 U/L 45-117 [facility] ALT [Catalytic activity/Vol] 16 U/L 13-56 [facility] CO2 [Moles/Vol] 27.0 mmol/L 21.0-32.0 [facility] Globulin (S) [Mass/Vol] 4.1 g/dL 2.2-4.2 [facility] Urea nitrogen/Creatinine [Mass ratio] 14.3 mg/mg 10-20 [facility] Laboratory - Hematology and Cell countsOrdered By: Cindy Mcpherson on 02-24-2023 Erythrocyte distribution width (RBC) [Entitic vol] 45.1 fL 35.1-43.9 [facility] Erythrocyte distribution width (RBC) [Ratio] 13.1 % 11.6-14.6 [facility] Immature granulocytes/100 WBC (Bld) 0.300 % 0.0-0.9 [facility] Comment on above: IG% - Immature Granu locytes (promyelocytes, myelocytes and metamyelocytes) > 1% indicates that a LEFT SHIFT is Present. MCH (RBC) [Entitic mass] 30.5 pg 27.0-32.0 [facility] Nucleated RBC/100 WBC (Bld) [Ratio] 0 % 0-5 [facility] MCHC Auto (RBC) [Mass/Vol]Or dered By: Cindy Mcpherson on 02-24-2023 MCHC (RBC) [Mass/Vol] 32.4 g/dL 32-36 [facility] No Panel InformationOrdered By: Cindy Mcpherson on 02-24-2023 Estimated GFR (MDRD) Amer 78 mL/min >60 [facility] Comment on above: GFR Calc Estimated GFR (MDRD) Non-Af Amer 64 mL/min >60 [facility] Comment on above: Non- GFR Calc Thyroid Stimulating Hormone (TSH) 0.92 uIU/mL 0.358-3.74 [facility] Platelets bldOrdered By: Baljit Mcpherson on 02-24-2023 Platelets (Bld) [#/Vol] 304 10*3/uL 150-450 [facility] Serum or plasma albumin graham urement (mass/volume)Ordered By: Cindy Mcpherson on 02-24-2023 Albumin [Mass/Vol] 3.9 g/dL 3.2-5.0 [facility] Serum or plasma albumin/glob ulin mass ratioOrdered By: Cindy Mcpherson on 02-24-2023 Albumin/Globulin [Mass ratio] 1.0 {ratio} 0.9-2.4 [facility] Serum or plasma calcium graham urement (mass/volume)Ordered By: Cindy Mcpherson on 02-24-2023 Calcium [Mass/Vol] 9.6 mg/dL 8.5-10.1 [facility] Serum or plasma creatinine m easurement (mass/volume)Ordered By: Cindy Mcpherson on 02-24-2023 Creatinine [Mass/Vol] 0.91 mg/dL 0.55-1.02 [facility] Comment on above: The validity of the calculated GFR & GFRAA in patients over 70 years has not been determined. Clinical correlation is essential. Serum or plasma urea nitroge n measurement (mass/volume)Ordered By: Cindy Mcpherson on 02-24-2023 Urea nitrogen [Mass/Vol] 13 mg/dL -18 [facility] Thin prep Papanicolaou smear with manual screeningOrdered By: Cindy Mcpherson on 02-24-2023 Thin prep Papanicolaou smear with manual screening 25 U/L [facility] Comment on above: Slight Hemolysis, Re sult may be falsely increased. Thin prep Papanicolaou smear with manual screening 8 -15 [facility] Basophil percentageon 2021 Bilirubin [Mass/Vol] 0.40 mg/dL 0.20-1.00 [facility] Work Phone: Comment on above: For patients on eltr ombopag therapy, use of Dimension [place] TBIL is not recommended. Chloride [Moles/Vol] 110 mmol/L 98-107 [facility] Work Phone: Cholesterol [Mass/Vol] 187 mg/dL <200 [facility] Work Phone: Comment on above: <200 mg/dL Desirable 200-240 mg/dL Borderline >240 mg/dL High Risk Glucose [Mass/Vol] 90 mg/dL 74-106 [facility] Work Phone: Potassium [Moles/Vol] 4.1 mmol/L 3.5-5.1 [facility] Work Phone: Protein [Mass/Vol] 7.7 g/dL 6.4-8.2 [facility] Work Phone: Sodium [Moles/Vol] 141 mmol/L 136-145 [facility] Work Phone: Triglyceride [Mass/Vol] 112 mg/dL <199 [facility] Work Phone: Comment on above: The drugs N-Acetylcy steine and Metamizole may falsely depress this assay.Serum Triglycerides Reference Interval Normal <150 mg/dL Borderline high 150 - 199 mg/dL High 200 - 499 mg/dL Very High > or = 500 mg/dL Laboratory - Chemistry and C hemistry - challengeon 07-22-2022 ALP [Catalytic activity/Vol] 115 U/L 45-117 [facility] Work Phone: ALT [Catalytic activity/Vol] 16 U/L 13-56 [facility] Work Phone: CO2 [Moles/Vol] 24.0 mmol/L 21.0-32.0 [facility] Work Phone: Globulin (S) [Mass/Vol] 4.0 g/dL 2.2-4.2 [facility] Work Phone: Magnesium [Mass/Vol] 2.2 mg/dL 1.6-2.6 [facility] Work Phone: Urea nitrogen/Creatinine [Mass ratio] 16.6 mg/mg 10 [facility] Work Phone: No Panel Informationon 07-22 Estimated GFR (MDRD) Amer 86 mL/min >60 [facility] Work Phone: Comment on above: GFR Calc Estimated GFR (MDRD) Non-Af Amer 71 mL/min >60 [facility] Work Phone: Comment on above: Non- GFR Calc Parathyroid Hormone (Intact) 31.6 pg/mL 18.4-80.1 [facility] Work Phone: Thyroid Stimulating Hormone (TSH) 0.23 uIU/mL 0.358-3.74 [facility] Work Phone: Vitamin D 25-Hydroxy 75.3 ng/mL [facility] Work Phone: Comment on above: Vitamin D 25(OH) Sta tus Range Deficiency <20 ng/mL (50nmol/L) Insufficiency 20 - 30 ng/mL (50 - 75 nmol/L) Sufficiency 30 - 100 ng/mL (75 - 250 nmol/L) Toxicity >100 ng/mL (>250 nmol/L) Serum or plasma albumin graham urement (mass/volume)on 07-22-2022 Albumin [Mass/Vol] 3.7 g/dL 3.2-5.0 [facility] Work Phone: Serum or plasma albumin/glob ulin mass ratioon 07-22-2022 Albumin/Globulin [Mass ratio] 0.9 {ratio} 0.9-2.4 [facility] Work Phone: Serum or plasma calcium graham urement (mass/volume)on 07-22-2022 Calcium [Mass/Vol] 9.1 mg/dL 8.5-10.1 [facility] Work Phone: Serum or plasma cholesterol in HDL measurement (mass/volume)on 07-22-2022 Cholesterol in HDL [Mass/Vol] 53 mg/dL >40 [facility] Work Phone: Comment on above: The drugs N-Acetylcy steine and Metamizole may falsely depress this assay. Reference Range HDL <40 mg/dL Low HDL Cholesterol HDL >or= 60 mg/dL High HDL Cholesterol Serum or plasma cholesterol in VLDL measurement (mass/volume)on 07-22-2022 Cholesterol in VLDL [Mass/Vol] 22 mg/dL 5-40 [facility] Work Phone: Serum or plasma creatinine m easurement (mass/volume)on 07-22-2022 Creatinine [Mass/Vol] 0.84 mg/dL 0.55-1.02 [facility] Work Phone: Comment on above: The validity of the calculated GFR & GFRAA in patients over 70 years has not been determined. Clinical correlation is essential. Serum or plasma low density lipoprotein (LDL) cholesterol measurement (mass/volume)on 07-22-2022 Cholesterol in LDL [Mass/Vol] 112 mg/dL 0-130 [facility] Work Phone: Serum or plasma urea nitroge n measurement (mass/volume)on 07-22-2022 Urea nitrogen [Mass/Vol] 14 mg/dL 7-18 [facility] Work Phone: Thin prep Papanicolaou smear with manual screeningon 07-22-2022 Thin prep Papanicolaou smear with manual screening 11 U/L 15-37 [facility] Work Phone: Thin prep Papanicolaou smear with manual screening 7 5-15 [facility] Work Phone: Basophil percentageon 2021 WBC (Bld) [#/Vol] 9.3 10*3/uL 4.4-11.0 [facility] Work Phone: Blood erythrocytes count (nu mber/volume)on 05-06-2022 RBC (Bld) [#/Vol] 4.71 10*6/uL 4.2-5.4 [facility] Work Phone: Blood hemoglobin measurement (mass/volume)on 05-06-2022 Hemoglobin (Bld) [Mass/Vol] 14.2 g/dL 12.0-15.0 [facility] Work Phone: Blood platelet mean volumeon 05-06-2022 Platelet mean volume (Bld) [Entitic vol] 8.5 fL 6.2-12.0 [facility] Work Phone: Determination of erythrocyte mean corpuscular volume (MCV)on 05-06-2022 MCV (RBC) [Entitic vol] 90.7 fL 81-99 [facility] Work Phone: Hematocrit Auto (Bld) [Volum e fraction]on 05-06-2022 Hematocrit (Bld) [Volume fraction] 42.7 % 37-47 [facility] Work Phone: Iron measurement (mass/mass) on 05-06-2022 Iron (Unsp spec) [Mass/Mass] 80 ug/dL 50-170 [facility] Work Phone: Laboratory - Hematology and Cell countson 05-06-2022 Erythrocyte distribution width (RBC) [Entitic vol] 42.0 fL 35.1-43.9 [facility] Work Phone: Erythrocyte distribution width (RBC) [Ratio] 12.7 % 11.6-14.6 [facility] Work Phone: MCH (RBC) [Entitic mass] 30.1 pg 27.0-32.0 [facility] Work Phone: MCHC Auto (RBC) [Mass/Vol]on 05-06-2022 MCHC (RBC) [Mass/Vol] 33.3 g/dL 32-36 [facility] Work Phone: Platelets bldon 05-06-2022 Platelets (Bld) [#/Vol] 358 10*3/uL 150-450 [facility] Work Phone: Serum or plasma ferritin salina surement (mass/volume)on 05-06-2022 Ferritin [Mass/Vol] 158 ng/mL 8-252 [facility] Work Phone: INHOUSE Rapid Covid/ Flu A/ Flu BOrdered By: Cassandra Myers on 04-28-2022 INHOUSE Rapid Covid/ Flu A/ Flu B Positive Normal [facility]; [facility] Work Phone: INHOUSE Rapid Covid/ Flu A/ Flu BOrdered By: MAKENZIE Webb on 10-08-2021 INHOUSE Rapid Covid/ Flu A/ Flu B Negative Normal [facility]; [facility] Work Phone: Ferritin ([phone])Ordered By: Interactive Web Developer on 08-16-2021 Ferritin [Mass/Vol] 107 ng/mL Normal 15-150 [facility]pr [facility]; [facility] Work Phone: Iron Binding Capacity (TIBC) ([id number])Ordered By: Interactive Web Developer on 08-16-2021 Iron [Mass/Vol] 68 ug/dL Normal 27-139 Comprehen s[facility]; [facility] Work Phone: Iron binding capacity [Mass/Vol] 347 ug/dL Normal 250-450 Comprehensiv e [facility]; [facility] Work Phone: Iron binding capacity.unsaturated [Mass/Vol] 279 ug/dL Normal 118-369 [facility]; [facility] Work Phone: Iron saturation [Mass fraction] 20 % Normal 15-55 [facility]; [facility] Work Phone: Methymalonic Acid, Serum ([phone])Ordered By: Interactive Web Developer on 08-16-2021 Methylmalonate [Moles/Vol] 196 nmol/L Normal 0-378 [facility]; [facility] Work Phone: Methymalonic Acid, Serum ([phone]) SPRCS Normal [facility]; [facility] Work Phone: Vitamin B-12 (cyanocobalamin ) ([id number])Ordered By: Interactive Web Developer on 08-16-2021 Cobalamin (Vitamin B12) [Mass/Vol] 986 pg/mL Normal 232-1245 [facility]; [facility] Work Phone: CBC, PLATELETS & AUT DIFF ([phone])Ordered By: Interactive Web Developer on 08-13-2021 Basophils (Bld) [#/Vol] 0.1 10*3/uL Normal 0.0-0.2 [facility]; [facility] Work Phone: Basophils/100 WBC (Bld) 1 % Normal [facility]; [facility] Work Phone: Eosinophils (Bld) [#/Vol] 0.2 10*3/uL Normal 0.0-0.4 [facility]; [facility] Work Phone: Eosinophils/100 WBC (Bld) 2 % Normal [facility]; [facility] Work Phone: Erythrocyte distribution width (RBC) [Ratio] 13.0 % Normal 11.7-15.4 [facility]; [facility] Work Phone: Hematocrit (Bld) [Volume fraction] 29.5 % Abnormal 34.0-46.6 [facility]; [facility] Work Phone: Hemoglobin (Bld) [Mass/Vol] 10.3 g/dL Abnormal 11.1-15.9 [facility]; [facility] Work Phone: Immature granulocytes (Bld) [#/Vol] 0.0 10*3/uL Normal 0.0-0.1 [facility]; [facility] Work Phone: Immature granulocytes/100 WBC (Bld) 0 % Normal [facility]; [facility] Work Phone: Lymphocytes (Bld) [#/Vol] 2.1 10*3/uL Normal 0.7-3.1 [facility]; [facility] Work Phone: Lymphocytes/100 WBC (Bld) 23 % Normal [facility]; [facility] Work Phone: MCH (RBC) [Entitic mass] 30.9 pg Normal 26.6-33.0 [facility]; [facility] Work Phone: MCHC (RBC) [Mass/Vol] 34.9 g/dL Normal 31.5-35.7 [facility]; [facility] Work Phone: MCV (RBC) [Entitic vol] 89 fL Normal 79-97 [facility]; [facility] Work Phone: Monocytes (Bld) [#/Vol] 0.5 10*3/uL Normal 0.1-0.9 [facility]; [facility] Work Phone: Monocytes/100 WBC (Bld) 6 % Normal [facility]; [facility] Work Phone: Neutrophils (Bld) [#/Vol] 6.2 10*3/uL Normal 1.4-7.0 [facility]; [facility] Work Phone: Neutrophils/100 WBC (Bld) 68 % Normal [facility]; [facility] Work Phone: Platelets (Bld) [#/Vol] 332 10*3/uL Normal 150-450 [facility]; [facility] Work Phone: RBC (Bld) [#/Vol] 3.33 10*6/uL Abnormal 3.77-5.28 [facility]pr [facility]; [facility] Work Phone: WBC (Bld) [#/Vol] 9.1 10*3/uL Normal 3.4-10.8 Compre hensive [facility]; [facility] Work Phone: 2018 Novel Coronavirus (COVI D-19), FLACO (39663)Ordered By: Interactive Web Developer on 09-14-20202018 Novel Coronavirus (COVID-19), FLACO (48837) Not Detected Normal [facility]; [facility] Work Phone: Comment on above: Testing was performe d using the Aptima SARS-CoV-2 assay.This nucleic acid amplification test was developed and its performancecharacteristics determined by [employer]. Nucleic acidamplification tests include PCR and TMA. This test has not been FDAcleared or approved. This test has been authorized by FDA under anEmergency Use Authorization (EUA). This test is only authorized forthe duration of time the declaration that circumstances existjustifying the authorization of the emergency use of in vitrodiagnostic tests for detection of SARS-CoV-2 virus and/or diagnosisof COVID-19 infection under section 564(b)(1) of the Act, 21 U.S.C.360bbb-3(b) (1), unless the authorization is terminated or revokedsooner.When diagnostic testing is negative, the possibility of a falsenegative result should be considered in the context of a patient'srecent exposures and the presence of clinical signs and symptomsconsistent with COVID-19. An individual without symptoms of COVID-19and who is not shedding SARS-CoV-2 virus would expect to have anegative (not detected) result in this assay. PATIENT NOT FASTINGP ERFORMED BY: Helio FaithStreet[address] [id number] 2018 Novel Coronavirus (COVID-19), [place]ACO (81743) Not detected Normal [facility]; [facility] Work Phone: C-Reactive Protein ([id number])Or dered By: Interactive Web Developer on 07-13-2019 CRP [Mass/Vol] 10 mg/L Normal 0-10 Comprehens lucio [facility] Work Phone: Comment on above: PATIENT NOT FASTINGP ERFORMED BY: MONICA FaithStreetJeff[facility]Katryz7832 [facility] [id number] CBC & PLATELETS (AUTO) ([phone] [id number])Ordered By: Interactive Web Developer on 07-13-2019 Erythrocyte distribution width (RBC) [Ratio] 13.8 % Normal 12.3-15.4 [facility] Work Phone: Comment on above: PATIENT NOT FASTINGP ERFORMED BY: MONICA [facility] Ebglvd5969 [facility] [id number] Hematocrit (Bld) [Volume fraction] 41.0 % Normal 34.0-46.6 [facility] Work Phone: Comment on above: PATIENT NOT FASTINGP ERFORMED BY: [facility]6370 [facility] [id number] Hemoglobin (Bld) [Mass/Vol] 14.4 g/dL Normal 11.1-15.9 [facility] Work Phone: Comment on above: PATIENT NOT FASTINGP ERFORMED BY: [facility]Re[facility] Pvrqmg0142 [facility] [id number] MCH (RBC) [Entitic mass] 30.8 pg Normal 26.6-33.0 [facility] Work Phone: Comment on above: PATIENT NOT FASTINGP ERFORMED BY: MONICA [facility]6370 [facility] [id number] MCHC (RBC) [Mass/Vol] 35.1 g/dL Normal 31.5-35.7 [facility] Work Phone: Comment on above: PATIENT NOT FASTINGP ERFORMED BY: [facility]CoJeff[facility]Rspufd0360 [facility] [id number] MCV (RBC) [Entitic vol] 88 fL Normal 79-97 [facility] Work Phone: Comment on above: PATIENT NOT FASTINGP ERFORMED BY: [facility]Re[facility] Qglduw4823 [facility] [id number] Platelets (Bld) [#/Vol] 309 {x10E3/uL} Normal 150-450 [facility] Work Phone: Comment on above: PATIENT NOT FASTINGP ERFORMED BY: Uman PharmaVon [facility]6370 [facility] [id number] Platelets (Bld) [#/Vol] 309 10*3/uL Normal 150-450 [facility] Work Phone: RBC (Bld) [#/Vol] 4.68 {x10E6/uL} Normal 3.77-5.28 [facility] Work Phone: Comment on above: PATIENT NOT FASTINGP ERFORMED BY: MONICA [facility]6370 [facility] [id number] RBC (Bld) [#/Vol] 4.68 10*6/uL Normal 3.77-5.28 [facility] Work Phone: WBC (Bld) [#/Vol] 7.2 {x10E3/uL} Normal 3.4-10.8 [facility] Work Phone: Comment on above: PATIENT NOT FASTINGP ERFORMED BY: [facility]6370 [facility] [id number] WBC (Bld) [#/Vol] 7.2 10*3/uL Normal 3.4-10.8 Compre [facility] Medicine Work Phone: CPK MB FRACTION ([id number])Order ed By: Interactive Web Developer on 07-13-2019 CK.MB [Mass/Vol] 4.2 ng/mL Normal 0.0-5.3 [facility] Work Phone: Comment on above: PATIENT NOT FASTINGP ERFORMED BY: [facility]6370 [facility] [id number] D-Dimer ([id number])Ordered By: Jeb arteagatem French Teacher on 07-13-2019 Fibrin D-dimer FEU (PPP) [Mass/Vol] 0.57 {mg/L_FEU} Abnormal 0.00-0.[address] [facility] Work Phone: Comment on above: According to the ass ay share holder's published package insert, anormal (<0.50 mg/L FEU) D-dimer result in conjunction with a non-highclinical probability assessment, excludes deep vein thrombosis (DVT)and pulmonary embolism (PE) with high sensitivity. .D-dimer values increase with age and this can make VTE exclusion ofan older population difficult. To address this, the [employer] [employer], based on best available evidence and recent guidelines,recommends that clinicians use age-adjusted D-dimer thresholds inpatients greater than 50 years of age with: a) a low probability ofPE who do not meet all Pulmonary Embolism Rule Out Criteria, orb) in those with intermediate probability of PE. The formula for anage-adjusted D-dimer cut-off is age/100. For example, a 60 year oldpatient would have an age-adjusted cut-off of 0.60 mg/L FEU and an80 year old 0.80 mg/L FEU. PATIENT NOT FASTINGP ERFORMED BY: CB [facility] Apwiie4316 DataW[address] Venturesblin [place] [id number] Metabolic Panel, Comprehensi ve ([id number])Ordered By: Interactive Web Developer on 07-13-2019 Albumin [Mass/Vol] 4.9 g/dL Abnormal 3.6-4.8 [facility] Work Phone: Comment on above: PATIENT NOT FASTINGP ERFORMED BY: CB [facility] Nqklkw[address] [place] [id number] Albumin/Globulin [Mass ratio] 1.8 {ratio} Normal 1.2-2.2 [facility] Work Phone: Comment on above: PATIENT NOT FASTINGP ERFORMED BY: CB [facility] Ndyjee[address] [place] [id number] ALP [Catalytic activity/Vol] 104 [iU]/L Normal 39-117 [facility] Work Phone: Comment on above: PATIENT NOT FASTINGP ERFORMED BY: CB [facility] Rbyfae[address] [place] [id number] ALP [Catalytic activity/Vol] 104 U/L Normal 39-117 [facility] Work Phone: ALT [Catalytic activity/Vol] 23 [iU]/L Normal 0-32 [facility] Work Phone: Comment on above: PATIENT NOT FASTINGP ERFORMED BY: MONICA [facility] Yoyyiu2576 [address]ini RoadDublin [place] [id number] ALT [Catalytic activity/Vol] 23 U/L Normal 0-32 [facility] Work Phone: AST [Catalytic activity/Vol] 21 [iU]/L Normal 0-40 [facility] Work Phone: Comment on above: PATIENT NOT FASTINGP ERFORMED BY: MONICA [facility] Irzyum3036 [address]ini RoadDublin [place] [id number] AST [Catalytic activity/Vol] 21 U/L Normal 0-40 [facility] Work Phone: Bilirubin [Mass/Vol] 0.5 mg/dL Normal 0.0-1.2 [facility] Work Phone: Comment on above: PATIENT NOT FASTINGP ERFORMED BY: MONICA [facility] Bwbncd2010 M[address]ini RoadDublin [place] [id number] Calcium [Mass/Vol] 10.3 mg/dL Normal 8.7-10.3 [facility] Work Phone: Comment on above: PATIENT NOT FASTINGP ERFORMED BY: MONICA [facility] Twfhct3465 [address]ini RoadDublin [place] [id number] Chloride [Moles/Vol] 102 mmol/L Normal 96-106 [facility] Internal Medicine Work Phone: Comment on above: PATIENT NOT FASTINGP ERFORMED BY: MONICA [facility] Zfcmhv5621 [address] RoadDublin [place] [id number] CO2 [Moles/Vol] 24 mmol/L Normal 20-29 Comprehen [facility] Internal Medicine Work Phone: Comment on above: PATIENT NOT FASTINGP ERFORMED BY: CB [facility] Wptrda7902 [address] RoadDublin [place] [id number] Creatinine [Mass/Vol] 0.88 mg/dL Normal 0.57-1.[address] [facility] Internal [facility] Work Phone: Comment on above: PATIENT NOT FASTINGP ERFORMED BY: MONICA [facility] Dhskwn6393 [address] RoadDublin [place] [id number] GFR/1.73 sq M predicted among blacks CKD-EPI (S/P/Bld) [Vol rate/Area] 78 mL/min/1.73 Normal [facility] Work Phone: Comment on above: PATIENT NOT FASTINGP ERFORMED BY: CB [facility] Dnovpu5406 [address] RoadDublin [place] [id number] GFR/1.73 sq M predicted among non-blacks CKD-EPI (S/P/Bld) [Vol rate/Area] 67 mL/min/1.73 Normal [facility] Work Phone: Comment on above: PATIENT NOT FASTINGP ERFORMED BY: CB [facility] Wcnbwo8292 [address]ini RoadCritical Access Hospitalin [place] [id number] Globulin (S) [Mass/Vol] 2.7 g/dL Normal 1.5-4.5 [facility] Work Phone: Comment on above: PATIENT NOT FASTINGP ERFORMED BY: CB [facility] Qtbijg8364 [address] RoadLittle River [place] [id number] Glucose [Mass/Vol] 87 mg/dL Normal 65-99 [facility] Work Phone: Comment on above: PATIENT NOT FASTINGP ERFORMED BY: CB [facility] Bfynjx[address] [facility] [id number] Potassium [Moles/Vol] 4.8 mmol/L Normal 3.5-5.2 [facility] Work Phone: Comment on above: PATIENT NOT FASTINGP ERFORMED BY: CB [facility] Phlemk060[address] [facility] [place] [id number] Protein [Mass/Vol] 7.6 g/dL Normal 6.0-8.5 [facility] Work Phone: Comment on above: PATIENT NOT FASTINGP ERFORMED BY: CB [facility] Sbuqqc[address] [facility] [place] [id number] Sodium [Moles/Vol] 144 mmol/L Normal 134-144 [facility] Work Phone: Comment on above: PATIENT NOT FASTINGP ERFORMED BY: CB [facility] Yfwzld0677 [address] RoadDublin [place] [id number] Urea nitrogen [Mass/Vol] 13 mg/dL Normal 8-27 [facility] Work Phone: Comment on above: PATIENT NOT FASTINGP ERFORMED BY: [facility]Co[facility]Eaoztv2778 [facility] [id number] Urea nitrogen/Creatinine [Mass ratio] 15 mg/mg Normal 12-28 [facility] Work Phone: Comment on above: PATIENT NOT FASTINGP ERFORMED BY: [facility]6370 [facility] [id number] Troponin I ([id number])Ordered By : Interactive Web Developer on 07-13-2019 Troponin I.cardiac [Mass/Vol] ng/mL Normal 0.00-0.04 [facility] Work Phone: Comment on above: PATIENT NOT FASTINGP ERFORMED BY: [facility]6370 [facility] [id number] Troponin I.cardiac [Mass/Vol] ng/mL Normal 0.00-0.04 [facility] Work Phone: Comprehensive Metabolic Prof ilOrdered By: Interactive Web Developer on 12-20-2018 Comprehensive metabolic 2000 panel 116 U/L Normal 45-117 Comprehensi ve [facility] Work Phone: Comment on above: [facility] [address] [place], [place], [id number] [facility] 2000 panel 13 U/L Abnormal 15-37 Comprehensi ve [facility] Work Phone: Comment on above: [facility] [address] [place], [place], [id number] [facility] 2000 panel 9.0 mg/dL Normal 8.5-10.1 Comprehensi ve [facility] Work Phone: Comment on above: [facility] [address] [place], [place], [address] [facility] 2000 panel 1.0 {RATIO} Normal 0.9-2.4 Comprehensi ve [facility] Work Phone: Comment on above: [facility] [address] [place], [place], [address] [facility] 2000 panel 8 mg/dL Normal 7-18 Comprehensi ve [facility] Work Phone: Comment on above: [facility] [address] [place], [place], [address] [facility] 2000 panel 88 mg/dL Normal 74-106 Comprehensi ve [facility] Work Phone: Comment on above: Please note revised GLUCOSE reference range /02/2018. [facility] [address] [place], [place], [address] [facility] 2000 panel 25.0 mmol/L Normal 21.0-32.0 Comprehensi ve [facility] Work Phone: Comment on above: [facility] [address] [place], [place], [address] Comprehensive [facility] 2000 panel 3.9 g/dL Normal 3.2-5.0 Comprehensi ve [facility] Work Phone: Comment on above: [facility] [address] [place], [place], [id number] [facility] 2000 panel 11 1 Normal 5-15 Comprehensi ve [facility] Work Phone: Comment on above: [facility] [address] [place], [place], [address] [facility] 2000 panel 7.8 g/dL Normal 6.4-8.2 Comprehensi ve [facility] Work Phone: Comment on above: [facility] [address] [place], [place], [address] Comprehensive metabolic 2000 panel 9.1 {RATIO} Abnormal 10-20 Comprehensi ve [facility] Work Phone: Comment on above: [facility] [address] [place], [address] Comprehensive metabolic 2000 panel 82 mL/min Normal Comprehensi ve [facility] Work Phone: Comment on above: GFR Calc [facility] [address] [place], [address] Comprehensive [facility] 2000 panel 107 mmol/L Normal 98-107 Comprehensi ve [facility] Work Phone: Comment on above: [facility] [address] [place], [address] Comprehensive metabolic 2000 panel 68 mL/min Normal Comprehensi ve [facility] Work Phone: Comment on above: Non- GFR Calc [facility] [address] [place], [address] Comprehensive [facility] 2000 panel 3.9 mmol/L Normal 3.5-5.1 Comprehensi ve [facility] Work Phone: Comment on above: [facility] [address] [place], [place], [address] Comprehensive [facility] 2000 panel 143 mmol/L Normal 136-145 Comprehensi ve [facility] Work Phone: Comment on above: [facility] [address] [place], [place], [address] Comprehensive [facility] 2000 panel 0.50 mg/dL Normal 0.20-1.00 Comprehensi ve [facility] Work Phone: Comment on above: [facility] [address] [place], [place], [address] Comprehensive metabolic 2000 panel 22 U/L Normal 13-56 Comprehensi ve [facility] Work Phone: Comment on above: [facility] [address] [place], [place], [address] [facility] 2000 panel 0.88 mg/dL Normal 0.55-1.02 Comprehensi ve [facility] Medicine Work Phone: Comment on above: The validity of the calculated GFR AND GFRAA in patients over70 years has not been determined. Clinical correlation isessential. [facility] [address] [place], [place], [phone] Lipid ProfileOrdered By: Lyle tem French Teacher on 12-20-2018 Cholesterol in HDL mass conc 58 mg/dL Normal [facility] Work Phone: Comment on above: The drugs N-Acetylcy steine and Metamizole may falselydepress this assay. Reference Range HDL <40 mg/dL Low HDL Cholesterol HDL >or= 60 mg/dL High HDL Cholesterol [facility] [address] [place], [place], [phone] Cholesterol in LDL mass conc 112 mg/dL Normal 0-130 [facility] Work Phone: Comment on above: [facility] [address] [place], [place], [address] Cholesterol in VLDL mass conc 29 mg/dL Normal 5-40 [facility] Work Phone: Comment on above: [facility] [address] [place], [place], [address] Cholesterol mass conc 199 mg/dL Normal [facility] Work Phone: Comment on above: <200 mg/dL Desirable 200-240 mg/dL Borderline >240 mg/dL High Risk [facility] [address] [place], [place], [id number] Triglyceride mass conc 146 mg/dL Normal [facility] Work Phone: Comment on above: The drugs N-Acetylcy steine and Metamizole may falselydepress this assay.Serum Triglycerides Reference Interval Normal <150 mg/dL Borderline high 150 - 199 mg/dL High 200 - 499 mg/dL Very High > or = 500 mg/dL [facility] [address] [place], [place], [id number] MagnesiumOrdered By: Interactive Web Developer on 12-20-2018 Magnesium mass conc 2.1 mg/dL Normal 1.6-2.6 Compr ehensive Internal Medicine Work Phone: Comment on above: [facility] [address] [place], [place], [id number] Thyroid Stim Hormone (TSH)Or dered By: Interactive Web Developer on 12-20-2018 Thyrotropin Qn 1.07 {uIU/mL} Normal 0.358-3.74 Compreh ensive Internal Medicine Work Phone: Comment on above: [facility] [address] [place], [place], [id number] Vitamin D,25 HydroxyOrdered By: Interactive Web Developer on 12-20-2018 Vitamin D,25 Hydroxy 71.7 ng/mL Normal 29.95-100.01 Co [facility] Internal Medicine Work Phone: Comment on above: Vitamin D 25(OH) Sta tus Range Deficiency <20 ng/mL (50nmol/L) Insufficiency 20 - 30 ng/mL (50 - 75 nmol/L) Sufficiency 30 - 100 ng/mL (75 - 250 nmol/L) Toxicity >100 ng/mL (>250 nmol/L) [facility] [address] [place], [place], [address] Comprehensive Metabolic Prof ilOrdered By: Interactive Web Developer on 06-11-2018 Comprehensive metabolic 2000 panel 7.8 g/dL Normal 6.4-8.2 Comprehensi ve Internal Medicine Work Phone: Comment on above: WAS A CALL BACK PT F OR REDRAW NO VRO CHARGE.[facility] [address] [place], [place], [address] Comprehensive metabolic 2000 panel 10 1 Normal 5-15 Comprehensi ve Internal Medicine Work Phone: Comment on above: WAS A CALL BACK PT F OR REDRAW NO VRO CHARGE.[facility] [address] [place], [place], [id number] Comprehensive metabolic 2000 panel 0.60 mg/dL Normal 0.20-1.00 Comprehensi ve Internal Medicine Work Phone: Comment on above: WAS A CALL BACK PT F OR REDRAW NO VRO CHARGE.[facility] [address] [place], [place], [address] Comprehensive metabolic 2000 panel 26 U/L Normal 13-56 Comprehensi ve Internal Medicine Work Phone: Comment on above: WAS A CALL BACK PT F OR REDRAW NO VRO CHARGE.[facility] [address] [place], [place], [address] Comprehensive metabolic 2000 panel 117 U/L Normal 45-117 Comprehensi ve Internal Medicine Work Phone: Comment on above: WAS A CALL BACK PT F OR REDRAW NO VRO CHARGE.[facility] [address] [place], [place], [address] Comprehensive metabolic 2000 panel 15 U/L Normal 15-37 Comprehensi ve Internal Medicine Work Phone: Comment on above: WAS A CALL BACK PT F OR REDRAW NO VRO CHARGE.[facility] [address] [place], [place], [address] Comprehensive metabolic 2000 panel 8.9 mg/dL Normal 8.5-10.1 Comprehensi ve Internal Medicine Work Phone: Comment on above: WAS A CALL BACK PT F OR REDRAW NO VRO CHARGE.[facility] [address] [place], [place], [address] Comprehensive metabolic 2000 panel 89 mg/dL Normal 74-106 Comprehensi ve Internal Medicine Work Phone: Comment on above: Please note revised GLUCOSE reference range [id number]/02/2018. WAS A CALL BACK PT F OR REDRAW NO VRO CHARGE.[facility] [address] [place], [place], [address] Comprehensive metabolic 2000 panel 4.0 g/dL Normal 2.2-4.2 Comprehensi ve Internal Medicine Work Phone: Comment on above: WAS A CALL BACK PT F OR REDRAW NO VRO CHARGE.[facility] [address] [place], [place], [address] Comprehensive metabolic 2000 panel 3.8 g/dL Normal 3.2-5.0 Comprehensi ve Internal Medicine Work Phone: Comment on above: WAS A CALL BACK PT F OR REDRAW NO VRO CHARGE.[facility] [address] [place], [place], [address] Comprehensive metabolic 2000 panel 143 mmol/L Normal 136-145 Comprehensi ve Internal Medicine Work Phone: Comment on above: WAS A CALL BACK PT F OR REDRAW NO VRO CHARGE.[facility] [address] [place], [place], [address] Comprehensive metabolic 2000 panel 10.7 {RATIO} Normal 10-20 Comprehensi ve Internal Medicine Work Phone: Comment on above: WAS A CALL BACK PT F OR REDRAW NO VRO CHARGE.[facility] [address] [place], [place], [address] Comprehensive metabolic 2000 panel 87 mL/min Normal Comprehensi ve Internal Medicine Work Phone: Comment on above: GFR Calc WAS A CALL BACK PT F OR REDRAW NO VRO CHARGE.[facility] [address] [place], [place], [address] Comprehensive metabolic 2000 panel 72 mL/min Normal Comprehensi ve Internal Medicine Work Phone: Comment on above: Non- GFR Calc WAS A CALL BACK PT F OR REDRAW NO VRO CHARGE.[facility] [address] [place], [place], [address] Comprehensive metabolic 2000 panel 0.84 mg/dL Normal 0.55-1.02 Comprehensi ve Internal Medicine Work Phone: Comment on above: The validity of the calculated GFR AND GFRAA in patients over70 years has not been determined. Clinical correlation isessential. WAS A CALL BACK PT F OR REDRAW NO VRO CHARGE.[facility] [address] [place], [address] Comprehensive metabolic 2000 panel 9 mg/dL Normal 7-18 Comprehensi ve Internal Medicine Work Phone: Comment on above: WAS A CALL BACK PT F OR REDRAW NO VRO CHARGE.[facility] [address] [place], [place], [address] Comprehensive metabolic 2000 panel 1.0 {RATIO} Normal 0.9-2.4 Comprehensi ve Internal Medicine Work Phone: Comment on above: WAS A CALL BACK PT F OR REDRAW NO VRO CHARGE.[facility] [address] [place], [place], [address] Comprehensive metabolic 2000 panel 4.1 mmol/L Normal 3.5-5.1 Comprehensi ve Internal Medicine Work Phone: Comment on above: WAS A CALL BACK PT F OR REDRAW NO VRO CHARGE.[facility] [address] [place], [place], [address] Comprehensive metabolic 2000 panel 26.0 mmol/L Normal 21.0-32.0 Comprehensi ve Internal Medicine Work Phone: Comment on above: WAS A CALL BACK PT F OR REDRAW NO VRO CHARGE.[facility] [address] [place], [place], [address] Comprehensive metabolic 2000 panel 107 mmol/L Normal 98-107 Comprehensi ve Internal Medicine Work Phone: Comment on above: WAS A CALL BACK PT F OR REDRAW NO VRO CHARGE.[facility] [address] [place], [place], [address] Thyroid Stim Hormone (TSH)Or dered By: Interactive Web Developer on 06-11-2018 Thyrotropin Qn 0.62 {uIU/mL} Normal 0.358-3.74 Compreh ensive Internal Medicine Work Phone: Comment on above: WAS A CALL BACK PT F OR REDRAW NO VRO CHARGE.[facility] [address] [place], [address] Comprehensive Metabolic Prof ilOrdered By: Interactive Web Developer on 02-01-2018 Comprehensive metabolic 2000 panel 4.4 mmol/L Normal 3.5-5.1 Comprehensi ve Internal Medicine Work Phone: Comment on above: [facility] [address] [place], [place], [address] Comprehensive metabolic 2000 panel 141 mmol/L Normal 136-145 Comprehensi ve Internal Medicine Work Phone: Comment on above: [facility] [address] [place], [place], [address] Comprehensive metabolic 2000 panel 0.40 mg/dL Normal 0.20-1.00 Comprehensi ve Internal Medicine Work Phone: Comment on above: [facility] [address] [place], [place], [address] Comprehensive metabolic 2000 panel 24 U/L Normal 13-56 Comprehensi ve Internal Medicine Work Phone: Comment on above: [facility] [address] [place], [place], [address] Comprehensive metabolic 2000 panel 104 U/L Normal 45-117 Comprehensi ve Internal Medicine Work Phone: Comment on above: [facility] [address] [place], [place], [address] Comprehensive metabolic 2000 panel 16 U/L Normal 15-37 Comprehensi ve Internal Medicine Work Phone: Comment on above: [facility] [address] [place], [place], [address] Comprehensive metabolic 2000 panel 8.7 mg/dL Normal 8.5-10.1 Comprehensi ve Internal Medicine Work Phone: Comment on above: [facility] [address] [place], [place], [address] Comprehensive metabolic 2000 panel 1.0 {RATIO} Normal 0.9-2.4 Comprehensi ve Internal Medicine Work Phone: Comment on above: [facility] [address] [place], [place], [address] Comprehensive metabolic 2000 panel 3.7 g/dL Normal 3.2-5.0 Comprehensi ve Internal Medicine Work Phone: Comment on above: [facility] [address] [place], [place], [address] Comprehensive metabolic 2000 panel 7.4 g/dL Normal 6.4-8.2 Comprehensi ve Internal Medicine Work Phone: Comment on above: [facility] [address] [place], [place], [address] Comprehensive metabolic 2000 panel 9.5 {RATIO} Abnormal 10-20 Comprehensi ve Internal Medicine Work Phone: Comment on above: [facility] [address] [place], [place], [address] Comprehensive metabolic 2000 panel 86 mL/min Normal Comprehensi ve Internal Medicine Work Phone: Comment on above: GFR Calc [facility] [address] [place], [place], [address] Comprehensive metabolic 2000 panel 71 mL/min Normal Comprehensi ve Internal Medicine Work Phone: Comment on above: Non- GFR Calc [facility] [address] [place], [place], [address] Comprehensive metabolic 2000 panel 0.85 mg/dL Normal 0.55-1.02 Comprehensi ve Internal Medicine Work Phone: Comment on above: The validity of the calculated GFR AND GFRAA in patients over70 years has not been determined. Clinical correlation isessential. [facility] [address] [place], [place], [address] Comprehensive metabolic 2000 panel 8 mg/dL Normal 7-18 Comprehensi ve Internal Medicine Work Phone: Comment on above: [facility] [address] [place], [address] Comprehensive metabolic 2000 panel 81 mg/dL Normal 74-106 Comprehensi ve Internal Medicine Work Phone: Comment on above: Please note revised GLUCOSE reference range [id number]/02/2018. [facility] [address] [place], [address] Comprehensive metabolic 2000 panel 7 1 Normal 5-15 Comprehensi ve Internal Medicine Work Phone: Comment on above: [facility] [address] [place], [address] Comprehensive metabolic 2000 panel 26.0 mmol/L Normal 21.0-32.0 Comprehensi ve Internal Medicine Work Phone: Comment on above: [facility] [address] [place], [place], [address] Comprehensive metabolic 2000 panel 108 mmol/L Abnormal 98-107 Comprehensi ve Internal Medicine Work Phone: Comment on above: [facility] [address] [place], [place], [address] Thyroid Stim Hormone (TSH)Or dered By: Interactive Web Developer on 02-01-2018 Thyrotropin Qn 0.16 {uIU/mL} Abnormal 0.358-3.74 Compreh ensive Internal Medicine Work Phone: Comment on above: [facility] [address] [place], [place], [address] Vitamin D,25 HydroxyOrdered By: Interactive Web Developer on 02-01-2018 Vitamin D,25 Hydroxy 64.0 ng/mL Normal 29.95-100.01 Co mprehensive Internal Medicine Work Phone: Comment on above: Vitamin D 25([place]) Sta tus Range Deficiency <20 ng/mL (50nmol/L) Insuffciency 20 - 30 ng/mL (50 - 75 nmol/L) Sufficiency 30 - 100 ng/mL (75 - 250 nmol/L) Toxicity >100 ng/mL (>250 nmol/L) [facility] [address] [place], [place], [address] Thyroid Stim Hormone (TSH)Or dered By: Interactive Web Developer on 10-01-2017 Thyrotropin Qn 0.94 {uIU/mL} Normal 0.358-3.74 Compreh ensive Internal Medicine Work Phone: Comment on above: [facility] [address] [place], [place], [address] CBC W/Diff, AutomatedOrdered By: Interactive Web Developer on 08-05-2017 Absolute Neut 3.4 {X10_3/uL} Normal 2.0-7.7 Compreh ensive Internal Medicine Work Phone: Comment on above: CMP.TSH.LIPID,MG FOR [facility] [address] [place], [address] Basophils/100 WBC (Bld) 0.7 % Normal 0-1 Comprehensive Internal Medicine Work Phone: Comment on above: CMP.TSH.LIPID,MG FOR [facility] [address] [place], [address] Eosinophils/100 WBC (Bld) 2.5 % Normal 0-5 Comprehensive Internal Medicine Work Phone: Comment on above: CMP.TSH.LIPID,MG FOR [facility] [address] [place], [address] Erythrocyte distribution width Ratio (RBC) 13.2 % Normal 11.6-14.6 Comprehensive Internal Medicine Work Phone: Comment on above: CMP.TSH.LIPID,MG FOR [facility] [address] [place], [address] Hematocrit Volume Fraction (Bld) 41.7 % Normal 37-47 Comprehensive Internal Medicine Work Phone: Comment on above: CMP.TSH.LIPID,MG FOR [facility] [address] [place], [place], [address] Hemoglobin mass conc (Bld) 14.2 g/dL Normal 12.0-15.0 Comprehensive Internal Medicine Work Phone: Comment on above: CMP.TSH.LIPID,MG FOR [facility] [address] [place], [address] IM GRAN % 0.000 % Normal 0.0-0.9 Comprehensive Internal Medicine Work Phone: Comment on above: IG% - Immature Granu locytes (promyelocytes, myelocytes andmetamyelocytes) > 1% indicates that a LEFT SHIFT is Present. CMP.TSH.LIPID,MG FOR [facility] [address] [place], [address] Lymphocytes #/vol (Bld) 2.18 {X10_3/ul} Normal 0.83-4.51 Comprehensive Internal Medicine Work Phone: Comment on above: CMP.TSH.LIPID,MG FOR [facility] [address] [place], [address] Lymphocytes/100 WBC (Bld) 35.6 % Normal 19-41 Comprehensive Internal Medicine Work Phone: Comment on above: CMP.TSH.LIPID,MG FOR [facility] [address] [place], [address] MCH Entitic mass (RBC) 31.4 pg Normal 27.0-32.0 Comprehensive Internal Medicine Work Phone: Comment on above: CMP.TSH.LIPID,MG FOR [facility] [address] [place], [address] MCHC mass conc (RBC) 34.1 {g/gl} Normal 32-36 [facility] prehensive Internal Medicine Work Phone: Comment on above: CMP.TSH.LIPID,MG FOR [facility] [address] [place], [address] MCV Entitic volume (RBC) 92.3 fL Normal 81-99 Comprehensive Internal Medicine Work Phone: Comment on above: CMP.TSH.LIPID,MG FOR [facility] [address] [place], [address] Monocytes/100 WBC (Bld) 5.4 % Normal 0-10 Comprehensive Internal Medicine Work Phone: Comment on above: CMP.TSH.LIPID,MG FOR [facility] [address] [place], [address] Neutrophils/100 WBC (Bld) 55.8 % Normal 47-70 Comprehensive Internal Medicine Work Phone: Comment on above: CMP.TSH.LIPID,MG FOR [facility] [address] [place], [address] Platelet mean volume Entitic volume (Bld) 8.5 fL Normal 6.2-12.0 Comprehensi ve Internal Medicine Work Phone: Comment on above: CMP.TSH.LIPID,MG FOR [facility] [address] [place], [address] Platelets #/vol (Bld) 312 10*3/uL Normal 150-450 Comprehensive Internal Medicine Work Phone: Comment on above: CMP.TSH.LIPID,MG FOR [facility] [address] [place], [address] RBC #/vol (Bld) 4.52 {M/mm3} Normal 4.2-5.4 Compreh ensive Internal Medicine Work Phone: Comment on above: CMP.TSH.LIPID,MG FOR [facility] [address] [place], [address] RDW SD 43.3 fL Normal 35.1-43.9 Comprehensive Internal Medicine Work Phone: Comment on above: CMP.TSH.LIPID,MG FOR [facility] [address] [place], [place], [address] WBC #/vol (Bld) 6.1 10*3/uL Normal 4.4-11.0 Comprehe nsive Internal Medicine Work Phone: Comment on above: CMP.TSH.LIPID,MG FOR [facility] [address] [place], [place], [address] Comprehensive Metabolic Prof ilOrdered By: Interactive Web Developer on 08-05-2017 Comprehensive metabolic 2000 panel 3.9 g/dL Normal 3.4-5.0 Comprehensi ve Internal Medicine Work Phone: Comment on above: Please note revised Albumin AND Globulin reference rangeeffective 2017. CMP.TSH.LIPID,MG FOR WIETECHAIs Patient Taking Vitamins or Folic Acid Supplements? [facility] [address] [place], [address] Comprehensive metabolic 2000 panel 102 mmol/L Normal 98-107 Comprehensi ve Internal Medicine Work Phone: Comment on above: CMP.TSH.LIPID,MG FOR WIETECHAIs Patient Taking Vitamins or Folic Acid Supplements? [facility] [address] [place], [address] Comprehensive metabolic 2000 panel 138 mmol/L Normal 136-145 Comprehensi ve Internal Medicine Work Phone: Comment on above: CMP.TSH.LIPID,MG FOR WIETECHAIs Patient Taking Vitamins or Folic Acid Supplements? [facility] [address] [place], [place], [address] Comprehensive metabolic 2000 panel 0.40 mg/dL Normal 0.20-1.00 Comprehensi ve Internal Medicine Work Phone: Comment on above: CMP.TSH.LIPID,MG FOR WIETECHAIs Patient Taking Vitamins or Folic Acid Supplements? [facility] [address] [place], [address] Comprehensive metabolic 2000 panel 25 U/L Normal 12-78 Comprehensi ve Internal Medicine Work Phone: Comment on above: CMP.TSH.LIPID,MG FOR WIETECHAIs Patient Taking Vitamins or Folic Acid Supplements? [facility] [address] [place], [address] Comprehensive metabolic 2000 panel 111 U/L Normal 45-117 Comprehensi ve Internal Medicine Work Phone: Comment on above: CMP.TSH.LIPID,MG FOR WIETECHAIs Patient Taking Vitamins or Folic Acid Supplements? [facility] [address] [place], [address] Comprehensive metabolic 2000 panel 16 U/L Normal 15-37 Comprehensi ve Internal Medicine Work Phone: Comment on above: CMP.TSH.LIPID,MG FOR WIETECHAIs Patient Taking Vitamins or Folic Acid Supplements? [facility] [address] [place], [address] Comprehensive metabolic 2000 panel 9.2 mg/dL Normal 8.5-10.1 Comprehensi ve Internal Medicine Work Phone: Comment on above: CMP.TSH.LIPID,MG FOR WIETECHAIs Patient Taking Vitamins or Folic Acid Supplements? [facility] [address] [place], [place], [address] Comprehensive metabolic 2000 panel 1.0 {RATIO} Normal 0.9-2.4 Comprehensi ve Internal Medicine Work Phone: Comment on above: CMP.TSH.LIPID,MG FOR WIETECHAIs Patient Taking Vitamins or Folic Acid Supplements? [facility] [address] [place], [address] Comprehensive metabolic 2000 panel 4.0 g/dL Normal 2.2-4.2 Comprehensi ve Internal Medicine Work Phone: Comment on above: CMP.TSH.LIPID,MG FOR WIETECHAIs Patient Taking Vitamins or Folic Acid Supplements? [facility] [address] [place], [address] Comprehensive metabolic 2000 panel 4.0 mmol/L Normal 3.5-5.1 Comprehensi ve Internal Medicine Work Phone: Comment on above: CMP.TSH.LIPID,MG FOR WIETECHAIs Patient Taking Vitamins or Folic Acid Supplements? [facility] [address] [place], [place], [address] Comprehensive metabolic 2000 panel 7.9 g/dL Normal 6.4-8.2 Comprehensi ve Internal Medicine Work Phone: Comment on above: CMP.TSH.LIPID,MG FOR WIETECHAIs Patient Taking Vitamins or Folic Acid Supplements? [facility] [address] [place], [place], [address] Comprehensive metabolic 2000 panel 11.0 {RATIO} Normal 10-20 Comprehensi ve Internal Medicine Work Phone: Comment on above: CMP.TSH.LIPID,MG FOR WIETECHAIs Patient Taking Vitamins or Folic Acid Supplements? [facility] [address] [place], [place], [address] Comprehensive metabolic 2000 panel 90 mL/min Normal Comprehensi ve Internal Medicine Work Phone: Comment on above: GFR Calc CMP.TSH.LIPID,MG FOR WIETECHAIs Patient Taking Vitamins or Folic Acid Supplements? [facility] [address] [place], [place], [address] Comprehensive metabolic 2000 panel 74 mL/min Normal Comprehensi ve Internal Medicine Work Phone: Comment on above: Non- GFR Calc CMP.TSH.LIPID,MG FOR WIETECHAIs Patient Taking Vitamins or Folic Acid Supplements? [facility] [address] [place], [address] Comprehensive metabolic 2000 panel 0.82 mg/dL Normal 0.55-1.02 Comprehensi ve Internal Medicine Work Phone: Comment on above: The validity of the calculated GFR AND GFRAA in patients over70 years has not been determined. Clinical correlation isessential. CMP.TSH.LIPID,MG FOR WIETECHAIs Patient Taking Vitamins or Folic Acid Supplements? [facility] [address] [place], [place], [address] Comprehensive metabolic 2000 panel 9 mg/dL Normal 7-18 Comprehensi ve Internal Medicine Work Phone: Comment on above: CMP.TSH.LIPID,MG FOR WIETECHAIs Patient Taking Vitamins or Folic Acid Supplements? [facility] [address] [place], [place], [address] Comprehensive metabolic 2000 panel 80 mg/dL Normal 70-110 Comprehensi ve Internal Medicine Work Phone: Comment on above: CMP.TSH.LIPID,MG FOR WIETECHAIs Patient Taking Vitamins or Folic Acid Supplements? [facility] [address] [place], [place], [address] Comprehensive metabolic 2000 panel 24.0 mmol/L Normal 21.0-32.0 Comprehensi ve Internal Medicine Work Phone: Comment on above: CMP.TSH.LIPID,MG FOR WIETECHAIs Patient Taking Vitamins or Folic Acid Supplements? [facility] [address] [place], [place], [address] Comprehensive metabolic 2000 panel 12 1 Normal 5-15 Comprehensi ve Internal Medicine Work Phone: Comment on above: CMP.TSH.LIPID,MG FOR WIETECHAIs Patient Taking Vitamins or Folic Acid Supplements? [facility] [address] [place], [place], [id number] Folates, (Folic Acid)Ordered By: Interactive Web Developer on 08-05-2017 Folates, (Folic Acid) 41.50 ng/mL Normal 3.1-55.4 Comprehensive Internal Medicine Work Phone: Comment on above: Please note revised Folates reference range [id number]/14/2017. CMP.TSH.LIPID,MG FOR WIETECHAIs Patient Taking Vitamins or Folic Acid Supplements? [facility] [address] [place], [place], [address] Lipid ProfileOrdered By: Lyle tem French Teacher on 08-05-2017 Cholesterol in HDL mass conc 55 mg/dL Normal Comprehensive Internal Medicine Work Phone: Comment on above: The drugs N-Acetylcy steine and Metamizole may falselydepress this assay. Reference Range HDL <40 mg/dL Low HDL Cholesterol HDL >or= 60 mg/dL High HDL Cholesterol CMP.TSH.LIPID,MG FOR WIETECHAIs Patient Taking Vitamins or Folic Acid Supplements? [facility] [address] [place], [place], [address] Cholesterol in LDL mass conc 150 mg/dL Abnormal 0-130 Comprehensive Internal Medicine Work Phone: Comment on above: CMP.TSH.LIPID,MG FOR WIETECHAIs Patient Taking Vitamins or Folic Acid Supplements? [facility] [address] [place], [place], [address] Cholesterol in VLDL mass conc 30 mg/dL Normal 5-40 Comprehensive Internal Medicine Work Phone: Comment on above: CMP.TSH.LIPID,MG FOR WIETECHAIs Patient Taking Vitamins or Folic Acid Supplements? [facility] [address] [place], [place], [address] Cholesterol mass conc 235 mg/dL Abnormal Comprehensive Internal Medicine Work Phone: Comment on above: <200 mg/dL Desirable 200-240 mg/dL Borderline >240 mg/dL High Risk CMP.TSH.LIPID,MG FOR WIETECHAIs Patient Taking Vitamins or Folic Acid Supplements? [facility] [address] [place], [place], [address] Triglyceride mass conc 150 mg/dL Normal Comprehensive Internal Medicine Work Phone: Comment on above: The drugs N-Acetylcy steine and Metamizole may falselydepress this assay.Serum Triglycerides Reference Interval Normal <150 mg/dL Borderline high 150 - 199 mg/dL High 200 - 499 mg/dL Very High > or = 500 mg/dL CMP.TSH.LIPID,MG FOR WIETECHAIs Patient Taking Vitamins or Folic Acid Supplements? [facility] [address] [place], [place], [id number] MagnesiumOrdered By: Interactive Web Developer on 08-05-2017 Magnesium mass conc 2.3 mg/dL Normal 1.8-2.4 Compr ensive Internal Medicine Work Phone: Comment on above: CMP.TSH.LIPID,MG FOR WIETECHAIs Patient Taking Vitamins or Folic Acid Supplements? [facility] [address] [place], [place], [id number] MicroalbOrdered By: Viktor santos on 08-05-2017 Creatinine mass conc 14.00 mg/dL Normal [facility] Internal Medicine Work Phone: Comment on above: CMP.TSH.LIPID,MG FOR [facility] [address] [place], [place], [phone] Creatinine mass conc Test not performed Normal [facility] Internal Medicine Work Phone: Comment on above: CMP.TSH.LIPID,MG FOR [facility] [address] [place], [address] Microalb < 5.0 Normal [facility] Medicine Work Phone: Comment on above: CMP.TSH.LIPID,MG FOR [facility] [address] [place], [address] Thyroid Stim Hormone (TSH)Or dered By: Interactive Web Developer on 08-05-2017 Thyrotropin Qn 4.96 {uIU/mL} Abnormal 0.358-3.74 Compreh ensive Internal Medicine Work Phone: Comment on above: CMP.TSH.LIPID,MG FOR CTETEOHIOHE[facility]OSPITALIs Patient Taking Vitamins or Folic Acid Supplements? [facility] [address] [place], [phone] Urinalysis, Routine (Dipstic k)Ordered By: Interactive Web Developer on 08-05-2017 Clarity Nom (U) Clear Normal [facility] Internal [facility] Work Phone: Comment on above: CMP.TSH.LIPID,MG FOR WIETECHAHow was Urine Obtained? [facility] [address] [place], [address] Color Nom (U) Yellow Normal Comprehensi ve Internal Medicine Work Phone: Comment on above: CMP.TSH.LIPID,MG FOR WIETECHAHow was Urine Obtained? [facility] [address] [place], [address] Urinalysis, Routine (Dipstick) 7.0 1 Normal 5.0 - 8.0 [facility] Medicine Work Phone: Comment on above: CMP.TSH.LIPID,MG FOR WIETECHAHow was Urine Obtained? [facility] [address] [place], [address] Urinalysis, Routine (Dipstick) 25 /ul Abnormal [facility] Medicine Work Phone: Comment on above: CMP.TSH.LIPID,MG FOR WIETECHAHow was Urine Obtained? [facility] [address] [place], [address] Urinalysis, Routine (Dipstick) Negative Normal [facility] Medicine Work Phone: Comment on above: CMP.TSH.LIPID,MG FOR WIETECHAHow was Urine Obtained? [facility] [address] [place], [address] Urinalysis, Routine (Dipstick) 1.005 1 Normal 1.002-1.030 [facility] Internal Medicine Work Phone: Comment on above: CMP.TSH.LIPID,MG FOR WIETECHAHow was Urine Obtained? [facility] [address] [place], [address] Urinalysis, Routine (Dipstick) Normal Normal [facility] Internal Medicine Work Phone: Comment on above: CMP.TSH.LIPID,MG FOR WIETECHAHow was Urine Obtained? [facility] [address] [place], [address] Vitamin I49Xolajzs By: Romulo mclaughlin French Teacher on 08-05-2017 Cobalamin (Vitamin B12) mass conc 1051 pg/mL Abnormal 211-911 [facility] Internal Medicine Work Phone: Comment on above: CMP.TSH.LIPID,MG FOR [facility] [address] [place], [address] Vitamin D,25 HydroxyOrdered By: Interactive Web Developer on 08-05-2017 Vitamin D,25 Hydroxy 83.1 ng/mL Normal Comp rehensive Internal Medicine Work Phone: Comment on above: Vitamin D 25(OH) Sta tus Range Deficiency <20 ng/mL (50nmol/L) Insuffciency 20 - 30 ng/mL (50 - 75 nmol/L) Sufficiency 30 - 100 ng/mL (75 - 250 nmol/L) Toxicity >100 ng/mL (>250 nmol/L) CMP.TSH.LIPID,MG FOR [facility] [address] [place], [address] CREATININE FINGERSTICKOrdere d By: Interactive Web Developer on 07-30-2017 Creatinine mass conc mg/dL Normal 0.55-1.02 Comp rehensive Internal Medicine Work Phone: Comment on above: [facility] Bhpa[address] [place] [address] ; will review at 08/21 appt GFR/1.73 sq M predicted among non-blacks MDRD vol rate/area (S/P/Bld) mL/min/{1.73_m2} Normal Comprehensi ve Internal Medicine Work Phone: Comment on above: [facility] Kvdr[address] [place] [address] ; will review at 08/21 appt Comprehensive Metabolic Prof ilOrdered By: Interactive Web Developer on 02-06-2017 Comprehensive metabolic 2000 panel 3.7 g/dL Abnormal 2.3-3.5 Comprehensi ve Internal Medicine Work Phone: Comment on above: [facility] [address] [place], [place], [address] Comprehensive metabolic 2000 panel 27.0 mmol/L Normal 21.0-32.0 Comprehensi ve Internal Medicine Work Phone: Comment on above: [facility] [address] [place], [address] Comprehensive metabolic 2000 panel 106 mmol/L Normal 98-107 Comprehensi ve Internal Medicine Work Phone: Comment on above: [facility] [address] [place], [address] Comprehensive metabolic 2000 panel 4.2 mmol/L Normal 3.5-5.1 Comprehensi ve Internal Medicine Work Phone: Comment on above: [facility] [address] [place], [place], [address] Comprehensive metabolic 2000 panel 140 mmol/L Normal 136-145 Comprehensi ve Internal Medicine Work Phone: Comment on above: [facility] [address] [place], [place], [address] Comprehensive metabolic 2000 panel 0.50 mg/dL Normal 0.20-1.00 Comprehensi ve Internal Medicine Work Phone: Comment on above: [facility] [address] [place], [address] Comprehensive metabolic 2000 panel 23 U/L Normal 12-78 Comprehensi ve Internal Medicine Work Phone: Comment on above: [facility] [address] [place], [address] Comprehensive metabolic 2000 panel 107 U/L Normal 45-117 Comprehensi ve Internal Medicine Work Phone: Comment on above: [facility] [address] [place], [place], [address] Comprehensive metabolic 2000 panel 12 U/L Abnormal 15-37 Comprehensi ve Internal Medicine Work Phone: Comment on above: [facility] [address] [place], [place], [address] Comprehensive metabolic 2000 panel 1.1 {RATIO} Normal 0.9-2.4 Comprehensi ve Internal Medicine Work Phone: Comment on above: [facility] [address] [place], [place], [address] Comprehensive metabolic 2000 panel 0.79 mg/dL Normal 0.55-1.02 Comprehensi ve Internal Medicine Work Phone: Comment on above: The validity of the calculated GFR AND GFRAA in patients over70 years has not been determined. Clinical correlation isessential. [facility] [address] [place], [place], [address] Comprehensive metabolic 2000 panel 3.9 g/dL Normal 3.4-5.0 Comprehensi ve Internal Medicine Work Phone: Comment on above: [facility] [address] [place], [place], [address] Comprehensive metabolic 2000 panel 7.6 g/dL Normal 6.4-8.2 Comprehensi ve Internal Medicine Work Phone: Comment on above: [facility] [address] [place], [place], [address] Comprehensive metabolic 2000 panel 10.1 {RATIO} Normal 10-20 Comprehensi ve Internal Medicine Work Phone: Comment on above: [facility] [address] [place], [place], [phone] Comprehensive metabolic 2000 panel 93 mL/min Normal Comprehensi ve Internal Medicine Work Phone: Comment on above: GFR Calc [facility] [address] [place], [place], [address] Comprehensive metabolic 2000 panel 77 mL/min Normal Comprehensi ve Internal Medicine Work Phone: Comment on above: Non- GFR Calc [facility] [address] [place], [place], [address] Comprehensive metabolic 2000 panel 8.8 mg/dL Normal 8.5-10.1 Comprehensi ve Internal Medicine Work Phone: Comment on above: [facility] [address] [place], [place], [address] Comprehensive metabolic 2000 panel 8 mg/dL Normal 7-18 Comprehensi ve Internal Medicine Work Phone: Comment on above: [facility] [address] [place], [place], [address] Comprehensive metabolic 2000 panel 82 mg/dL Normal 70-110 Comprehensi ve Internal Medicine Work Phone: Comment on above: [facility] [address] [place], [place], [address] Comprehensive metabolic 2000 panel 7 1 Normal 5-15 Comprehensi ve Internal Medicine Work Phone: Comment on above: [facility] [address] [place], [place], [address] Thyroid Stim Hormone (TSH)Or dered By: Interactive Web Developer on 02-06-2017 Thyrotropin Qn 1.11 {uIU/mL} Normal 0.358-3.74 Compreh ensive Internal Medicine Work Phone: Comment on above: [facility] [address] [place], [place], [address] Vitamin E97Chlunig By: Romulo mclaughlin French Teacher on 02-06-2017 Cobalamin (Vitamin B12) mass conc 1147 pg/mL Abnormal 211-911 Comprehensive Internal Medicine Work Phone: Comment on above: ADDENDA: another doc [facility] [address] [place], [address] CALCIFEDIOL ([id number])Ordered B y: Interactive Web Developer on 11-05-2016 25-Hydroxyvitamin D2+25-Hydroxyvitamin D3 mass conc 67.0 ng/mL Normal 30.0-100.0 [facility] Medicine Work Phone: Comment on above: Vitamin D deficiency has been defined by the [place] ofMedicine and an Endocrine Society practice guideline as alevel of serum 25-OH vitamin D less than 20 ng/mL (1,2).The Endocrine Society went on to further define vitamin Dinsufficiency as a level between 21 and 29 ng/mL (2).1. IOM ([place] of Medicine). 2010. Dietary reference intakes for calcium and D. [place]: The National Academies Press.2. Hernesto MF, Carolyn JEONG, Christoph RODRIGUEZ, et al. Evaluation, treatment, and prevention of vitamin D deficiency: an Endocrine Society clinical practice guideline. JCEM. 2010; 96(7):1911-30. PATIENT WAS FASTINGP ERFORMED BY: [email or web address] DataW[employer] VenturesAt[facility] Health [facility] [id number] CBC, PLATELETS & AUT DIFF ([id number])Ordered By: Interactive Web Developer on 11-05-2016 Basophils #/vol (Bld) 0.1 {x10E3/uL} Normal 0.0-0.2 [facility] Medicine Work Phone: Comment on above: PATIENT WAS FASTINGP ERFORMED BY: [employer]63[employer] SwayAtrium Health [facility] [id number] Basophils (Bld) [#/Vol] 0.1 10*3/uL Normal 0.0-0.2 [facility] Work Phone: Basophils/100 WBC (Bld) 1 % Normal [facility] Medicine Work Phone: Comment on above: PATIENT WAS FASTINGP ERFORMED BY: SurikateAtrium Health [facility] [id number] Eosinophils #/vol (Bld) 0.2 {x10E3/uL} Normal 0.0-0.4 [facility] Medicine Work Phone: Comment on above: PATIENT WAS FASTINGP ERFORMED BY: [employer], [employer]in [place] [id number] Eosinophils (Bld) [#/Vol] 0.2 10*3/uL Normal 0.0-0.4 [facility] Medicine Work Phone: Eosinophils/100 WBC (Bld) 2 % Normal [facility] Medicine Work Phone: Comment on above: PATIENT WAS FASTINGP ERFORMED BY: [facility]6370 [facility] [id number] Erythrocyte distribution width Ratio (RBC) 14.0 % Normal 12.3-15.4 [facility] Medicine Work Phone: Comment on above: PATIENT WAS FASTINGP ERFORMED BY: [address] [id number] Hematocrit Volume Fraction (Bld) 40.7 % Normal 34.0-46.6 [facility] Internal Medicine Work Phone: Comment on above: PATIENT WAS FASTINGP ERFORMED BY: [place] [id number] [facility] [id number] Hemoglobin mass conc (Bld) 13.8 g/dL Normal 11.1-15.9 [facility] Medicine Work Phone: Comment on above: PATIENT WAS FASTINGP ERFORMED BY: [place] [id number] [facility] [id number] Immature granulocytes #/vol (Bld) 0.0 {x10E3/uL} Normal 0.0-0.1 [facility] Medicine Work Phone: Comment on above: PATIENT WAS FASTINGP ERFORMED BY: [facility]6370 [facility] [id number] Immature granulocytes (Bld) [#/Vol] 0.0 10*3/uL Normal 0.0-0.1 [facility] Work Phone: Immature granulocytes/100 WBC (Bld) 0 % Normal [facility] Medicine Work Phone: Comment on above: PATIENT WAS FASTINGP ERFORMED BY: [place] [id number] [facility] [id number] Lymphocytes #/vol (Bld) 2.3 {x10E3/uL} Normal 0.7-3.1 [facility] Medicine Work Phone: Comment on above: PATIENT WAS FASTINGP ERFORMED BY: MONICA [facility]6370 [facility] [id number] Lymphocytes (Bld) [#/Vol] 2.3 10*3/uL Normal 0.7-3.1 [facility] Work Phone: Lymphocytes/100 WBC (Bld) 32 % Normal [facility] Medicine Work Phone: Comment on above: PATIENT WAS FASTINGP ERFORMED BY: [place] [id number] [facility] [id number] MCH Entitic mass (RBC) 30.7 pg Normal 26.6-33.0 [facility] Medicine Work Phone: Comment on above: PATIENT WAS FASTINGP ERFORMED BY: [address] [id number] MCHC mass conc (RBC) 33.9 g/dL Normal 31.5-35.7 Comp [facility] Internal Medicine Work Phone: Comment on above: PATIENT WAS FASTINGP ERFORMED BY: [facility]6370 [facility] [id number] MCV Entitic volume (RBC) 91 fL Normal 79-97 [facility] Medicine Work Phone: Comment on above: PATIENT WAS FASTINGP ERFORMED BY: [place] 3762470 [facility] [id number] Monocytes #/vol (Bld) 0.4 {x10E3/uL} Normal 0.1-0.9 [facility] Work Phone: Comment on above: PATIENT WAS FASTINGP ERFORMED BY: [place] 3762470 [facility] [id number] Monocytes (Bld) [#/Vol] 0.4 10*3/uL Normal 0.1-0.9 [facility] Work Phone: Monocytes/100 WBC (Bld) 5 % Normal [facility] Medicine Work Phone: Comment on above: PATIENT WAS FASTINGP ERFORMED BY: MONICA [facility] Vgmpcm7[address] Roadblin [place] [id number] Neutrophils #/vol (Bld) 4.2 {x10E3/uL} Normal 1.4-7.0 [facility] Medicine Work Phone: Comment on above: PATIENT WAS FASTINGP ERFORMED BY: MONICA [facility] Xwlyiv3619 M[address]ini RoadCritical Access Hospitalin [place] [id number] Neutrophils (Bld) [#/Vol] 4.2 10*3/uL Normal 1.4-7.0 [facility] Work Phone: Neutrophils/100 WBC (Bld) 60 % Normal [facility] Medicine Work Phone: Comment on above: PATIENT WAS FASTINGP ERFORMED BY: MONICA [facility] Xiupkk8826 M[address]ini RoadUNC Health Rex [facility] [id number] Platelets #/vol (Bld) 310 {x10E3/uL} Normal 150-379 Comprehensive Internal Medicine Work Phone: Comment on above: PATIENT WAS FASTINGP ERFORMED BY: MONICA [facility] Ppcsfc[address] [facility] [place] [id number] Platelets (Bld) [#/Vol] 310 10*3/uL Normal 150-379 [facility] Internal Medicine Work Phone: RBC #/vol (Bld) 4.49 {x10E6/uL} Normal 3.77-5.28 Comp [facility] Internal [facility] Work Phone: Comment on above: PATIENT WAS FASTINGP ERFORMED BY: MONICA [facility] S[address]ttz[address] [facility]in [place] [id number] RBC (Bld) [#/Vol] 4.49 10*6/uL Normal 3.77-5.28 Compr ensive Internal Medicine Work Phone: WBC #/vol (Bld) 7.1 {x10E3/uL} Normal 3.4-10.8 Compr ensive Internal Medicine Work Phone: Comment on above: PATIENT WAS FASTINGP ERFORMED BY: MONICA [facility] Adpthi6741 Mancini RoadCritical Access Hospitalin [place] [id number] WBC (Bld) [#/Vol] 7.1 10*3/uL Normal 3.4-10.8 [facility] Internal Medicine Work Phone: METABOLIC PANEL, COMPREHENSI VE ([id number])Ordered By: Interactive Web Developer on 11-05-2016 Albumin mass conc 4.5 g/dL Normal 3.6-4.8 [facility] Internal Medicine Work Phone: Comment on above: PATIENT WAS FASTINGP ERFORMED BY: MONICA [facility] [address]eyvi[address] [facility] [id number] Albumin/Globulin mass ratio 1.8 {ratio} Normal 1.1-2.[address] [facility] Internal Medicine Work Phone: Comment on above: PATIENT WAS FASTINGP ERFORMED BY: MONICA [facility]Re[facility] [address]apb[address] [facility] [id number] ALP [Catalytic activity/Vol] 101 U/L Normal 39-117 Comprehensive Internal Medicine Work Phone: ALP enzyme act/vol 101 [iU]/L Normal 39-117 [facility] Internal Medicine Work Phone: Comment on above: PATIENT WAS FASTINGP ERFORMED BY: MONICA [facility]Re[facility] Lnfkhc[address] [facility] [id number] ALT [Catalytic activity/Vol] 15 U/L Normal 0-32 [facility] Internal Medicine Work Phone: ALT enzyme act/vol 15 [iU]/L Normal 0-32 [facility] Internal Medicine Work Phone: Comment on above: PATIENT WAS FASTINGP ERFORMED BY: [facility] Yxgbfz[address] [facility] [id number] AST [Catalytic activity/Vol] 12 U/L Normal 0-[address] [facility] Internal Medicine Work Phone: AST enzyme act/vol 12 [iU]/L Normal 0-40 [facility] Internal Medicine Work Phone: Comment on above: PATIENT WAS FASTINGP ERFORMED BY: MONICA [facility]Re[facility] Jjhllq[address] [facility]in [place] [id number] Bilirubin mass conc 0.3 mg/dL Normal 0.0-1.2 Compr ehensive Internal Medicine Work Phone: Comment on above: PATIENT WAS FASTINGP ERFORMED BY: MONICA [facility] Iongfz6[address] Roadblin [place] [id number] Calcium mass conc 10.0 mg/dL Normal 8.7-10.3 Compreh ensive Internal Medicine Work Phone: Comment on above: PATIENT WAS FASTINGP ERFORMED BY: CB [facility] Eskazn0708 [address] RoadCritical Access Hospitalin [place] [id number] Chloride molar conc 103 mmol/L Normal 96-106 Compr ehensive Internal Medicine Work Phone: Comment on above: PATIENT WAS FASTINGP ERFORMED BY: MONICA [facility] Dqqdzn[address] [facility] [id number] CO2 molar conc 24 mmol/L Normal 18-29 Comprehens lucio Internal Medicine Work Phone: Comment on above: PATIENT WAS FASTINGP ERFORMED BY: MONICA [facility] Wdgggj[address] [facility] [id number] Creatinine mass conc 0.84 mg/dL Normal 0.57-1.00 Comp rehensive Internal Medicine Work Phone: Comment on above: PATIENT WAS FASTINGP ERFORMED BY: MONICA [facility] Yhfdoa[address] [facility] [id number] GFR/1.73 sq M predicted among blacks CKD-EPI vol rate/area (S/P/Bld) 84 mL/min/1.73 Normal Comprehensiv e Internal Medicine Work Phone: Comment on above: PATIENT WAS FASTINGP ERFORMED BY: CB [facility] Gcxifc0739 [address] Roadblin [place] [id number] GFR/1.73 sq M predicted among non-blacks CKD-EPI vol rate/area (S/P/Bld) 73 mL/min/1.73 Normal [facility] Medicine Work Phone: Comment on above: PATIENT WAS FASTINGP ERFORMED BY: CB [facility] Cioqwr[address] [facility] [place] [id number] Globulin mass conc (S) 2.5 g/dL Normal 1.5-4.5 [facility] Medicine Work Phone: Comment on above: PATIENT WAS FASTINGP ERFORMED BY: MONICA [facility] Qmbiww9609 M[address]ini RoadDublin [place] [id number] Glucose mass conc 88 mg/dL Normal 65-99 Compreh ensive Internal Medicine Work Phone: Comment on above: PATIENT WAS FASTINGP ERFORMED BY: [facility] Lcpnlr1368 [address] Roadblin [place] [id number] Potassium molar conc 5.0 mmol/L Normal 3.5-5.2 Comp rehensive Internal Medicine Work Phone: Comment on above: PATIENT WAS FASTINGP ERFORMED BY: MONICA [facility] Fpwkew6721 M[address]ini RoadCritical Access Hospitalin [place] [id number] Protein mass conc 7.0 g/dL Normal 6.0-8.5 Compreh ensive Internal Medicine Work Phone: Comment on above: PATIENT WAS FASTINGP ERFORMED BY: MONICA [facility] [address]zbd[address] [facility] Centerblin [place] [id number] Sodium molar conc 142 mmol/L Normal 134-144 Compreh ensive Internal Medicine Work Phone: Comment on above: PATIENT WAS FASTINGP ERFORMED BY: MONICA [facility] Iembpi[address] [facility] [place] [id number] Urea nitrogen mass conc 13 mg/dL Normal 8-27 [facility] Medicine Work Phone: Comment on above: PATIENT WAS FASTINGP ERFORMED BY: MONICA [facility] Syaeok24[address]blin [place] [id number] Urea nitrogen/Creatinine mass ratio 15 mg/mg Normal 11-26 [facility] Medicine Work Phone: Comment on above: PATIENT WAS FASTINGP ERFORMED BY: [facility] Vioxuw7921 [address]ini RoadDublin [place] [id number] MICROALBUMINOrdered By: Syst em French Teacher on 11-05-2016 Albumin DL <= 20 mg/L mass conc (U) 5.2 ug/mL Normal [facility] Work Phone: Comment on above: PATIENT WAS FASTINGP ERFORMED BY: [facility] Tiupwm[address] [place] [id number] Albumin/Creatinine mass ratio (U) 8.0 {mg/g_creat} Normal 0.0-30.0 [facility] Work Phone: Comment on above: PATIENT WAS FASTINGP ERFORMED BY: [facility] Jorqwi6333 [address]ini RoadDublin [place] [id number] Creatinine mass conc (U) 65.0 mg/dL Normal [facility] Work Phone: Comment on above: PATIENT WAS FASTINGP ERFORMED BY: [facility] Spnuzx[address] Ocarina NetworksDublin [place] [id number] VITAMIN B12 AND FOLATES (826 07)Ordered By: Interactive Web Developer on 11-05-2016 Cobalamin (Vitamin B12) mass conc 773 pg/mL Normal 211-946 [facility] Medicine Work Phone: Comment on above: PATIENT WAS FASTINGP ERFORMED BY: [facility] Shqrik[address] Ocarina NetworksDublin [place] [id number] Folate mass conc 16.8 ng/mL Normal Comprehe nsive Internal Medicine Work Phone: Comment on above: A serum folate sarai ntration of less than 3.1 ng/mL isconsidered to represent clinical deficiency. PATIENT WAS FASTINGP ERFORMED BY: [facility] [address] [place] [id number] COLON BIOPSY (CHOOSE SITE)Or dered By: Interactive Web Developer on 07-07-2016 COLON BIOPSY (CHOOSE SITE) See Note Normal [facility] Work Phone: Comment on above: Patient: ANGELICA GARCIA : 1950 (66/F) Acct Num: [id number] Phys: Damian Harmtann Unit Num: [id number] Loc: LABSPEC Specimen: [id number] Received: 07/07/16 - 4615 Spec Type: COLON BX TISSUES TISSUES: GROSS DESCRIPTION Received is one container labeled with the patient's name and designated polyp mid ascending colon. The specimen consists of a polypoid fragment of greene tissue measuring 1 x 0.8 x 0.6 cm. The presumed margin of resection is inked. The specimen is bisected and totally submitted in one cassette. / AM:krissy 07/08/16 TC:5 CPT:85121 HEADER OPERATION: Colonoscopy with polypectomy PRE-OP DIAGNOSIS: Screening/polyp TISSUE SUBMITTED: Polypectomy, mid ascending colon, rule out adenoma MICROSCOPIC DESCRIPTION Slides are reviewed. MICROSCOPIC DIAGNOSIS Mid ascending colon polyp, polypectomy: Hyperplastic polyp. AM:krissy 07/09/16 Signed Aries Kiran 07/09/16 [facility] [address] [place], [place], [address] Basic Metabolic Profile (BMP )Ordered By: Interactive Web Developer on 06-18-2016 Basic metabolic 2000 panel 66 mL/min Normal [facility] Work Phone: Comment on above: Non- GFR Calc [facility] [address] [place], [place], [address] Basic metabolic 2000 panel 10 mg/dL Normal 7-18 [facility] Work Phone: Comment on above: [facility] [address] [place], [place], [address] Basic metabolic 2000 panel 30.0 mmol/L Normal 21.0-32.0 [facility] Work Phone: Comment on above: [facility] [address] [place], [place], [address] Basic metabolic 2000 panel 0.90 mg/dL Normal 0.55-1.20 [facility] Work Phone: Comment on above: The validity of the calculated GFR AND GFRAA in patients over70 years has not been determined. Clinical correlation isessential. [facility] [address] [place], [address] Basic metabolic 2000 panel 121 mg/dL Abnormal 70-110 [facility] Work Phone: Comment on above: Fasting Glucose resu lt from 110 to <126 mg/dLsuggests IMPAIRED HOMEOSTASIS per A.D.A. criteria. [facility] [address] [place], [address] Basic metabolic 2000 panel 80 mL/min Normal [facility] Work Phone: Comment on above: GFR Calc [facility] [address] [place], [address] Basic metabolic 2000 panel 11.1 {RATIO} Normal 10-20 [facility] Work Phone: Comment on above: [facility] [address] [place], [place], [address] Basic metabolic 2000 panel 9.6 mg/dL Normal 8.5-10.1 [facility] Work Phone: Comment on above: [facility] [address] [place], [address] Basic metabolic 2000 panel 141 mmol/L Normal 136-145 [facility] Work Phone: Comment on above: [facility] [address] [place], [address] Basic metabolic 2000 panel 4.4 mmol/L Normal 3.5-5.1 [facility] Work Phone: Comment on above: [facility] [address] [place], [address] Basic metabolic 2000 panel 106 mmol/L Normal 98-107 [facility] Work Phone: Comment on above: [facility] [address] [place], [address] Basic metabolic 2000 panel 5 1 Normal 5-15 [facility] Work Phone: Comment on above: [facility] [address] [place], [place], [id number] MagnesiumOrdered By: Interactive Web Developer on 06-18-2016 Magnesium mass conc 2.2 mg/dL Normal 1.8-2.4 Compr ehensive Internal Medicine Work Phone: Comment on above: [facility] [address] [place], [id number] Thyroid Stim Hormone (TSH)Or dered By: Interactive Web Developer on 06-18-2016 Thyrotropin Qn 1.34 {uIU/mL} Normal 0.358-3.74 Compreh ensive Internal Medicine Work Phone: Comment on above: [facility] [address] [place], [place], [id number] Blood Glucose , Office ([phone])Ordered By: Riddhi Tapia on 03-05-2016 Glucose Glucometer molar conc (BldC) 133 1 Normal [facility] Work Phone: Thyroid Stim Hormone (TSH)Or dered By: Interactive Web Developer on 12-18-2015 Thyrotropin Qn 6.07 {uIU/mL} Abnormal 0.358-3.74 Compreh ensive Internal Medicine Work Phone: Comment on above: ADDENDA: handled by caryn [facility] [address] [place], [place], [id number] Comprehensive Metabolic Prof ilOrdered By: Interactive Web Developer on 10-06-2015 Comprehensive metabolic 2000 panel 3.8 g/dL Normal 3.4-5.0 Comprehensi ve Internal Medicine Work Phone: Comment on above: [facility] [address] [place], [place], [id number] Comprehensive metabolic 2000 panel 21 U/L Normal 12-78 Comprehensi ve Internal Medicine Work Phone: Comment on above: [facility] [address] [place], [place], [id number] Comprehensive metabolic 2000 panel 105 mmol/L Normal 98-107 Comprehensi ve Internal Medicine Work Phone: Comment on above: [facility] [address] [place], [place], [id number] Comprehensive metabolic 2000 panel 4.0 mmol/L Normal 3.5-5.1 Comprehensi ve Internal Medicine Work Phone: Comment on above: [facility] [address] [place], [place], [phone] Comprehensive metabolic 2000 panel 139 mmol/L Normal 136-145 Comprehensi ve Internal Medicine Work Phone: Comment on above: [facility] [address] [place], [place], [phone] Comprehensive metabolic 2000 panel 0.40 mg/dL Normal 0.20-1.00 Comprehensi ve Internal Medicine Work Phone: Comment on above: [facility] [address] [place], [place], [id number] Comprehensive metabolic 2000 panel 101 U/L Normal 50-136 Comprehensi ve Internal Medicine Work Phone: Comment on above: [facility] [address] [place], [place], [phone] Comprehensive metabolic 2000 panel 15 U/L Normal 15-37 Comprehensi ve Internal Medicine Work Phone: Comment on above: [facility] [address] [place], [place], [phone] Comprehensive metabolic 2000 panel 1.0 {RATIO} Normal 0.9-2.4 Comprehensi ve Internal Medicine Work Phone: Comment on above: [facility] [address] [place], [place], [id number] Comprehensive metabolic 2000 panel 3.9 g/dL Abnormal 2.3-3.5 Comprehensi ve Internal Medicine Work Phone: Comment on above: [facility] [address] [place], [place], [phone] Comprehensive metabolic 2000 panel 24.0 mmol/L Normal 21.0-32.0 Comprehensi ve Internal Medicine Work Phone: Comment on above: [facility] [address] [place], [place], [phone] Comprehensive metabolic 2000 panel 7.7 g/dL Normal 6.4-8.2 Comprehensi ve Internal Medicine Work Phone: Comment on above: [facility] [address] [place], [place], [phone] Comprehensive metabolic 2000 panel 11.5 {RATIO} Normal 10-20 Comprehensi ve Internal Medicine Work Phone: Comment on above: [facility] [address] [place], [place], [phone] Comprehensive metabolic 2000 panel 84 mL/min Normal Comprehensi ve Internal Medicine Work Phone: Comment on above: GFR Calc [facility] [address] [place], [place], [phone] Comprehensive metabolic 2000 panel 69 mL/min Normal Comprehensi ve Internal Medicine Work Phone: Comment on above: Non- GFR Calc [facility] [address] [place], [place], [id number] Comprehensive metabolic 2000 panel 0.87 mg/dL Normal 0.55-1.20 Comprehensi ve Internal Medicine Work Phone: Comment on above: The validity of the calculated GFR AND GFRAA in patients over70 years has not been determined. Clinical correlation isessential. [facility] [address] [place], [place], [id number] Comprehensive metabolic 2000 panel 10 mg/dL Normal 7-18 Comprehensi ve Internal Medicine Work Phone: Comment on above: [facility] [address] [place], [place], [phone] Comprehensive metabolic 2000 panel 85 mg/dL Normal 70-110 Comprehensi ve Internal Medicine Work Phone: Comment on above: [facility] [address] [place], [phone] Comprehensive metabolic 2000 panel 8.9 mg/dL Normal 8.5-10.1 Comprehensi ve Internal Medicine Work Phone: Comment on above: [facility] [address] [place], [place], [phone] Comprehensive metabolic 2000 panel 10 1 Normal 5-15 Comprehensi ve Internal Medicine Work Phone: Comment on above: [facility] [address] [place], [id number] MagnesiumOrdered By: Interactive Web Developer on 10-06-2015 Magnesium mass conc 1.8 mg/dL Normal 1.8-2.4 Compr ensive Internal Medicine Work Phone: Comment on above: [facility] [address] [place], [phone] PTH,INTACTOrdered By: Interactive Web Developer on 10-06-2015 PTH,INTACT 16 pg/mL Normal 14-72 [facility] Work Phone: Comment on above: [facility] [address] [place], [address] Thyroid Stim Hormone (TSH)Or dered By: Interactive Web Developer on 10-06-2015 Thyrotropin Qn 3.98 {uIU/mL} Abnormal 0.358-3.74 Compreh ensive Internal Medicine Work Phone: Comment on above: [facility] [address] [place], [id number] Vitamin D,25 HydroxyOrdered By: Interactive Web Developer on 10-06-2015 Vitamin D,25 Hydroxy 55.0 ng/mL Normal [facility] Work Phone: Comment on above: Vitamin D 25(OH) Sta tus Range Deficiency <20 ng/mL (50nmol/L) Insuffciency 20 - 30 ng/mL (50 - 75 nmol/L) Sufficiency 30 - 100 ng/mL (75 - 250 nmol/L) Toxicity >100 ng/mL (>250 nmol/L) [facility] [address] [place], [address] Comprehensive Metabolic Prof ilOrdered By: Interactive Web Developer on 06-14-2015 Comprehensive metabolic 2000 panel 7 1 Normal 5-15 Comprehensi ve Internal Medicine Work Phone: Comment on above: Test performed at:[facility] [address] [place], [place] [phone] Comprehensive metabolic 2000 panel 29.0 mmol/L Normal 21.0-32.0 Comprehensi ve Internal Medicine Work Phone: Comment on above: Test performed at:[facility] [address] [place] [address] Comprehensive metabolic 2000 panel 104 mmol/L Normal 98-107 Comprehensi ve Internal Medicine Work Phone: Comment on above: Test performed at:[facility] [address] [place], [place] [phone] Comprehensive metabolic 2000 panel 4.2 mmol/L Normal 3.5-5.1 Comprehensi ve Internal Medicine Work Phone: Comment on above: Test performed at:[facility] [address] [place] [address] Comprehensive metabolic 2000 panel 140 mmol/L Normal 136-145 Comprehensi ve Internal Medicine Work Phone: Comment on above: Test performed at:[facility] [address] [place], [place] [phone] Comprehensive metabolic 2000 panel 0.60 mg/dL Normal 0.20-1.00 Comprehensi ve Internal Medicine Work Phone: Comment on above: Test performed at:[facility] [address] [place], [place] [phone] Comprehensive metabolic 2000 panel 28 U/L Normal 12-78 Comprehensi ve Internal Medicine Work Phone: Comment on above: Test performed at:[facility] [address] [place] [address] Comprehensive metabolic 2000 panel 98 U/L Normal 50-136 Comprehensi ve Internal Medicine Work Phone: Comment on above: Test performed at:[facility] [address] [place] [address] Comprehensive metabolic 2000 panel 17 U/L Normal 15-37 Comprehensi ve Internal Medicine Work Phone: Comment on above: Test performed at:[facility] [address] [place] [address] Comprehensive metabolic 2000 panel 9.2 mg/dL Normal 8.5-10.1 Comprehensi ve Internal Medicine Work Phone: Comment on above: Test performed at:[facility] [address] [place] [address] Comprehensive metabolic 2000 panel 1.1 {RATIO} Normal 0.9-2.4 Comprehensi ve Internal Medicine Work Phone: Comment on above: Test performed at:[facility] [address] [place] [address] Comprehensive metabolic 2000 panel 3.8 g/dL Abnormal 2.3-3.5 Comprehensi ve Internal Medicine Work Phone: Comment on above: Test performed at:[facility] [address] [place] [address] Comprehensive metabolic 2000 panel 4.1 g/dL Normal 3.4-5.0 Comprehensi ve Internal Medicine Work Phone: Comment on above: Test performed at:[facility] [address] [place] [address] Comprehensive metabolic 2000 panel 7.9 g/dL Normal 6.4-8.2 Comprehensi ve Internal Medicine Work Phone: Comment on above: Test performed at:[facility] [address] [place], [place] [phone] Comprehensive metabolic 2000 panel 14.8 {RATIO} Normal 10-20 Comprehensi ve Internal Medicine Work Phone: Comment on above: Test performed at:[facility] [address] [place] [address] Comprehensive metabolic 2000 panel 91 mL/min Normal Comprehensi ve Internal Medicine Work Phone: Comment on above: Test performed at:[facility] [address] [place] [address] Comprehensive metabolic 2000 panel 75 mL/min Normal Comprehensi ve Internal Medicine Work Phone: Comment on above: Test performed at:[facility] [address] [place] [address] Comprehensive metabolic 2000 panel 0.81 mg/dL Normal 0.55-1.20 Comprehensi ve Internal Medicine Work Phone: Comment on above: Please note revised CREATININE reference range ortwlctiy55/22/2015. Test performed at:[facility] [address] [place] [address] Comprehensive metabolic 2000 panel 12 mg/dL Normal 7-18 Comprehensi ve Internal Medicine Work Phone: Comment on above: Test performed at:[facility] [address] [place] [address] Comprehensive metabolic 2000 panel 87 mg/dL Normal 70-110 Comprehensi ve Internal Medicine Work Phone: Comment on above: Test performed at:[facility] [address] [place] [address] FerritinOrdered By: Viktor santos on 06-14-2015 Ferritin mass conc 134 ng/mL Normal 8-252 Compre hensive Internal Medicine Work Phone: Comment on above: Test performed at:[facility] [address] [place] [address] IronOrdered By: System Manag er on 06-14-2015 Iron mass conc 95 ug/dL Normal 50-170 Comprehens lucio Internal Medicine Work Phone: Comment on above: Test performed at:[facility] [address] [place] [address] MagnesiumOrdered By: Interactive Web Developer on 06-14-2015 Magnesium mass conc 2.1 mg/dL Normal 1.8-2.4 Compr ehensive Internal Medicine Work Phone: Comment on above: Test performed at:[facility] [address] [place] [phone] Thyroid Stim Hormone (TSH)Or dered By: Interactive Web Developer on 06-14-2015 Thyrotropin Qn 2.84 {uIU/mL} Normal 0.358-3.74 Compreh ensive Internal Medicine Work Phone: Comment on above: Test performed at:[facility] [address] [place] [address] Vitamin R20Dhllsew By: [employer] Technologiesad Glassful French Teacher on 06-14-2015 Cobalamin (Vitamin B12) mass conc 363 pg/mL Normal 211-911 [facility] Work Phone: Comment on above: Test performed at:[facility] [address] [place] [address] CBC W/Diff, AutomatedOrdered By: Interactive Web Developer on 05-04-2015 Absolute Neut 2.6 {X10_3/uL} Normal 2.0-7.7 Compreh ensive Internal Medicine Work Phone: Comment on above: Test performed at:[facility] [address] [place] [address] Basophils/100 WBC (Bld) 1.0 % Normal 0-1 [facility] Work Phone: Comment on above: Test performed at:[facility] [address] [place] [address] Eosinophils/100 WBC (Bld) 2.9 % Normal 0-5 [facility] Work Phone: Comment on above: Test performed at:[facility] [address] [place] [address] Erythrocyte distribution width Ratio (RBC) 13.5 % Normal 11.6-14.6 [facility] Work Phone: Comment on above: Test performed at:[facility] [address] [place] [address] Hematocrit Volume Fraction (Bld) 42.1 % Normal 37-47 [facility] Work Phone: Comment on above: Test performed at:[facility] [address] [place] [address] Hemoglobin mass conc (Bld) 14.6 g/dL Normal 12.0-15.0 [facility] Work Phone: Comment on above: Test performed at:[facility] [address] [place] [address] IM GRAN % 0.200 % Normal 0.0-0.9 [facility] Work Phone: Comment on above: IG% - Immature Granu locytes (promyelocytes, myelocytes andmetamyelocytes) > 1% indicates that a LEFT SHIFT is Present. Test performed at:[facility] [address] [place] [address] Lymphocytes #/vol (Bld) 1.96 {X10_3/ul} Normal 0.83-4.51 [facility] Work Phone: Comment on above: Test performed at:[facility] [address] [place] [address] Lymphocytes/100 WBC (Bld) 38.1 % Normal 19-41 [facility] Work Phone: Comment on above: Test performed at:[facility] [address] [place] [address] MCH Entitic mass (RBC) 31.8 pg Normal 27.0-32.0 [facility] Work Phone: Comment on above: Test performed at:[facility] [address] [place] [address] MCHC mass conc (RBC) 34.7 {g/gl} Normal 32-36 Com prehensive Internal Medicine Work Phone: Comment on above: Test performed at:[facility] [address] [place] [address] MCV Entitic volume (RBC) 91.7 fL Normal 81-99 [facility] Work Phone: Comment on above: Test performed at:[facility] [address] [place] [address] Monocytes/100 WBC (Bld) 6.8 % Normal 0-10 [facility] Work Phone: Comment on above: Test performed at:[facility] [address] [place] [address] Neutrophils/100 WBC (Bld) 51.0 % Normal 47-70 [facility] Work Phone: Comment on above: Test performed at:[facility] [address] [place] [address] Platelet mean volume Entitic volume (Bld) 8.2 fL Normal 6.2-12.0 Comprehensi ve Internal Medicine Work Phone: Comment on above: Test performed at:[facility] [address] [place] [address] Platelets #/vol (Bld) 280 10*3/uL Normal 150-450 [facility] Work Phone: Comment on above: Test performed at:[facility] [address] [place] [address] RBC #/vol (Bld) 4.59 {M/mm3} Normal 4.2-5.4 Compreh ensive Internal Medicine Work Phone: Comment on above: Test performed at:[facility] [address] [place] [address] RDW SD 44.7 fL Abnormal 35.1-43.9 [facility] Work Phone: Comment on above: Test performed at:[facility] [address] [place] [address] WBC #/vol (Bld) 5.1 10*3/uL Normal 4.4-11.0 Comprehe nsive Internal Medicine Work Phone: Comment on above: Test performed at:[facility] [address] [place] [address] Comprehensive Metabolic Prof ilOrdered By: Interactive Web Developer on 05-04-2015 Comprehensive metabolic 2000 panel 3.8 g/dL Abnormal 2.3-3.5 Comprehensi ve Internal Medicine Work Phone: Comment on above: ORDERED CMP TSH PTH VITD MGDR.FAST ORDERED LIPID TSH CBCD CMPTest performed at:[facility] [address] [facility] [place] [address] Comprehensive metabolic 2000 panel 5 1 Normal 5-15 Comprehensi ve Internal Medicine Work Phone: Comment on above: ORDERED CMP TSH PTH VITD MGDR.FAST ORDERED LIPID TSH CBCD CMPTest performed at:[facility] [address] [facility] [place] [address] Comprehensive metabolic 2000 panel 4.0 mmol/L Normal 3.5-5.1 Comprehensi ve Internal Medicine Work Phone: Comment on above: ORDERED CMP TSH PTH VITD MGDR.FAST ORDERED LIPID TSH CBCD CMPTest performed at:[facility] [address] [facility] [place] [address] Comprehensive metabolic 2000 panel 136 mmol/L Normal 136-145 Comprehensi ve Internal Medicine Work Phone: Comment on above: ORDERED CMP TSH PTH VITD MGDR.FAST ORDERED LIPID TSH CBCD CMPTest performed at:[facility] [address] [place] [address] Comprehensive metabolic 2000 panel 0.60 mg/dL Normal 0.20-1.00 Comprehensi ve Internal Medicine Work Phone: Comment on above: ORDERED CMP TSH PTH VITD MGDR.FAST ORDERED LIPID TSH CBCD CMPTest performed at:[facility] [address] [facility] [place] [address] Comprehensive metabolic 2000 panel 26 U/L Normal 12-78 Comprehensi ve Internal Medicine Work Phone: Comment on above: ORDERED CMP TSH PTH VITD MGDR.FAST ORDERED LIPID TSH CBCD CMPTest performed at:[facility] [address] [facility] [place] [address] Comprehensive metabolic 2000 panel 95 U/L Normal 50-136 Comprehensi ve Internal Medicine Work Phone: Comment on above: ORDERED CMP TSH PTH VITD MGDR.FAST ORDERED LIPID TSH CBCD CMPTest performed at:[facility] [address] [place] [address] Comprehensive metabolic 2000 panel 16 U/L Normal 15-37 Comprehensi ve Internal Medicine Work Phone: Comment on above: ORDERED CMP TSH PTH VITD MGDR.FAST ORDERED LIPID TSH CBCD CMPTest performed at:[facility] Nq[address]kw[address]6067 [facility] [place] [address] Comprehensive metabolic 2000 panel 9.4 mg/dL Normal 8.5-10.1 Comprehensi ve Internal Medicine Work Phone: Comment on above: ORDERED CMP TSH PTH VITD MGDR.FAST ORDERED LIPID TSH CBCD CMPTest performed at:[facility] [address]cx[address] [facility] [place] [address] Comprehensive metabolic 2000 panel 1.0 {RATIO} Normal 0.9-2.4 Comprehensi ve Internal Medicine Work Phone: Comment on above: ORDERED CMP TSH PTH VITD MGDR.FAST ORDERED LIPID TSH CBCD CMPTest performed at:[facility] [address] [place] [address] Comprehensive metabolic 2000 panel 29.0 mmol/L Normal 21.0-32.0 Comprehensi ve Internal Medicine Work Phone: Comment on above: ORDERED CMP TSH PTH VITD MGDR.FAST ORDERED LIPID TSH CBCD CMPTest performed at:[facility] [address] [place] [address] Comprehensive metabolic 2000 panel 3.9 g/dL Normal 3.4-5.0 Comprehensi ve Internal Medicine Work Phone: Comment on above: ORDERED CMP TSH PTH VITD MGDR.FAST ORDERED LIPID TSH CBCD CMPTest performed at:[facility] [address] [place] [address] Comprehensive metabolic 2000 panel 7.7 g/dL Normal 6.4-8.2 Comprehensi ve Internal Medicine Work Phone: Comment on above: ORDERED CMP TSH PTH VITD MGDR.FAST ORDERED LIPID TSH CBCD CMPTest performed at:[facility] [address] [facility] [place] [address] Comprehensive metabolic 2000 panel 12.7 {RATIO} Normal 10-20 Comprehensi ve Internal Medicine Work Phone: Comment on above: ORDERED CMP TSH PTH VITD MGDR.FAST ORDERED LIPID TSH CBCD CMPTest performed at:[facility] [address] [place] [address] Comprehensive metabolic 2000 panel 107 mL/min Normal Comprehensi ve Internal Medicine Work Phone: Comment on above: ORDERED CMP TSH PTH VITD MGDR.FAST ORDERED LIPID TSH CBCD CMPTest performed at:[facility] [address] [place] [address] Comprehensive metabolic 2000 panel 88 mL/min Normal Comprehensi ve Internal Medicine Work Phone: Comment on above: ORDERED CMP TSH PTH VITD MGDR.FAST ORDERED LIPID TSH CBCD CMPTest performed at:[facility] [address] [facility] [facility] [place], [place] [id number] Comprehensive metabolic 2000 panel 0.71 mg/dL Normal 0.55-1.20 Comprehensi ve Internal Medicine Work Phone: Comment on above: Please note revised CREATININE reference range oasntxcgo84/22/2015. ORDERED CMP TSH PTH VITD MGDR.FAST ORDERED LIPID TSH CBCD CMPTest performed at:[facility] Gfveejxxdb5736 [facility] [place] [address] Comprehensive metabolic 2000 panel 9 mg/dL Normal 7-18 [facility] Internal Medicine Work Phone: Comment on above: ORDERED CMP TSH PTH VITD MGDR.FAST ORDERED LIPID TSH CBCD CMPTest performed at:[facility] [address] [facility] [place] [address] Comprehensive metabolic 2000 panel 84 mg/dL Normal 70-110 Comprehensi Internal Medicine Work Phone: Comment on above: ORDERED CMP TSH PTH VITD MGDR.FAST ORDERED LIPID TSH CBCD CMPTest performed at:[facility] [address] [place] [address] Comprehensive metabolic 2000 panel 102 mmol/L Normal 98-107 Comprehensi ve Internal Medicine Work Phone: Comment on above: ORDERED CMP TSH PTH VITD MGDR.FAST ORDERED LIPID TSH CBCD CMPTest performed at:[facility] [address]aj[address]gg7101 [facility] [place], [place] [id number] Lipid ProfileOrdered By: Lyle tem French Teacher on 05-04-2015 Cholesterol in HDL mass conc 52 mg/dL Normal Comprehensive [facility] Work Phone: Comment on above: Reference Range HDL <40 mg/dL Low HDL Cholesterol HDL >or= 60 mg/dL High HDL Cholesterol ORDERED CMP TSH PTH VITD MGDR.FAST ORDERED LIPID TSH CBCD CMPTest performed at:[facility] [address] [place] [address] Cholesterol in LDL mass conc 160 mg/dL Abnormal 0-130 [facility] Work Phone: Comment on above: ORDERED CMP TSH PTH VITD MGDR.FAST ORDERED LIPID TSH CBCD CMPTest performed at:[facility] [address] [place] [address] Cholesterol in VLDL mass conc 29 mg/dL Normal 5-40 Comprehensive [facility] Medicine Work Phone: Comment on above: ORDERED CMP TSH PTH VITD MGDR.FAST ORDERED LIPID TSH CBCD CMPTest performed at:[facility] [address]fezysfjt[address] [place] [address] Cholesterol mass conc 241 mg/dL Abnormal [facility] Work Phone: Comment on above: <200 mg/dL Desirable 200-240 mg/dL Borderline >240 mg/dL High Risk ORDERED CMP TSH PTH VITD MGDR.FAST ORDERED LIPID TSH CBCD CMPTest performed at:[facility] Hkfkhswjzf[address] [place] [address] Triglyceride mass conc 143 mg/dL Normal 0-199 [facility] Work Phone: Comment on above: Serum Triglycerides Reference Interval Normal <150 mg/dL Borderline high 150 - 199 mg/dL High 200 - 499 mg/dL Very High > or = 500 mg/dL ORDERED CMP TSH PTH VITD MGDR.FAST ORDERED LIPID TSH CBCD CMPTest performed at:[facility] Wtxyqcvpzg5612 [facility] [place] [address] MagnesiumOrdered By: Interactive Web Developer on 05-04-2015 Magnesium mass conc 2.0 mg/dL Normal 1.8-2.4 [facility] Internal Medicine Work Phone: Comment on above: ORDERED CMP TSH PTH VITD MGDR.FAST ORDERED LIPID TSH CBCD CMPTest performed at:[facility] Qxswwyoqxm9234 [place] [address] PTH,INTACTOrdered By: Interactive Web Developer on 05-04-2015 PTH,INTACT 12 pg/mL Abnormal 14-72 [facility] Work Phone: Comment on above: Test performed at:[facility] Hsvebeyaqu5944 [place] [address] Thyroid Stim Hormone (TSH)Or dered By: Interactive Web Developer on 05-04-2015 Thyrotropin Qn 3.41 {uIU/mL} Normal 0.358-3.74 Compreh ensive Internal Medicine Work Phone: Comment on above: ORDERED CMP TSH PTH VITD MGDR.FAST ORDERED LIPID TSH CBCD CMPTest performed at:[facility] Djqlxuskgi8553 [place] [address] Vitamin D,25 HydroxyOrdered By: Interactive Web Developer on 05-04-2015 Vitamin D,25 Hydroxy 44.9 ng/mL Normal Comp rehensive Internal Medicine Work Phone: Comment on above: Vitamin D 25(OH) Sta tus Range Deficiency <20 ng/mL (50nmol/L) Insuffciency 20 - 30 ng/mL (50 - 75 nmol/L) Sufficiency 30 - 100 ng/mL (75 - 250 nmol/L) Toxicity >100 ng/mL (>250 nmol/L) Test performed at:[facility] Bpsqldwlrk6096 [place] [address] CDIFF (Molecular)Ordered By: Interactive Web Developer on 04-05-2015 C. difficile DNA FLACO+probe Ql (Unsp spec) See Note Normal [facility] Work Phone: Comment on above: Cdiff-MolecularC. Di ff DNA Negative- No toxigenic C. Diff DNA Detected Test performed at:[facility] Wzumnzvhsc9881 [place] [address] Ova and ParasitesOrdered By: Interactive Web Developer on 04-05-2015 Ova and Parasites See Note Normal Compreh ensive Internal Medicine Work Phone: Comment on above: O + POVA AND PARASIT ES EXAM, ROUTINE These results were obtained using wet preparation(s) and trichrome stained smear. This test does not include testing for Crytosporidium parvum, Cyclospora, or Microsporidia. TESTING PERFORMED AT [facility]. ORIGINAL REPORT ON FILE IN LAB CONTAINS ADDITIONAL TEST SITE INFORMATION. Ova/Parasite Exam NO OVA, CYSTS, OR PARASITES FOUND. Test performed at:[facility] Jeqdnnoxbk8766 [facility] [place] [address] Stool CultureNo Salm onella, Shigella, Yersinia or Campylobacter isolated. No significant amount of Staphylococcus aureus or yeast-like organisms isolated. Shiga ToxinShiga-Toxin 1 AND 2 Shiga Toxin 1 and ShigaToxin 2 NOT Detected Stool Lactoferrin/WBCOrdered By: Interactive Web Developer on 04-05-2015 Lactoferrin IA Ql (St) See Note Normal [facility] Work Phone: Comment on above: Stool Lacto/WBCFecal WBC Lactoferrin Negative: No Fecal WBC Lactoferrin present Test performed at:[facility] Mjhuufuphl3706 [facility] [place] [address] Stool Occult Blood iFOBOrder ed By: Interactive Web Developer on 04-05-2015 Lower GI hemoglobin IA Ql (St) See Note Normal [facility] Work Phone: Comment on above: STOB iFOBOccult Bloo d Negative Test performed at:[facility] [address] [place] [address] Basic Metabolic Profile (BMP )Ordered By: Interactive Web Developer on 03-09-2015 Basic metabolic 2000 panel 129 mg/dL Abnormal 70-110 [facility] Work Phone: Comment on above: Fasting Glucose resu lt greater than or equal to 126 mg/dLsuggests DIABETES MELLITUS per A.D.A. criteria. Test performed at:[facility] [address]ym[address] [place] [address] Basic metabolic 2000 panel 6 1 Normal 5-15 [facility] Work Phone: Comment on above: Test performed at:[facility] Mveuxiipat[address] [place] [address] Basic metabolic 2000 panel 27.0 mmol/L Normal 21.0-32.0 [facility] Work Phone: Comment on above: Test performed at:[facility] Ywacfpvoey[address] [place] [address] Basic metabolic 2000 panel 105 mmol/L Normal 98-107 [facility] Work Phone: Comment on above: Test performed at:[facility] Vabkzifhit1614 [place] [address] Basic metabolic 2000 panel 3.8 mmol/L Normal 3.5-5.1 [facility] Work Phone: Comment on above: Test performed at:[facility] Y[address]ubbpqlw46[address] [place] [address] Basic metabolic 2000 panel 14 mg/dL Normal 7-18 [facility] Work Phone: Comment on above: Test performed at:[facility] Rqqohpsbhl0741 [place] [address] Basic metabolic 2000 panel 8.8 mg/dL Normal 8.5-10.1 [facility] Work Phone: Comment on above: Test performed at:[facility] Iixchhgshs[address] [place] [address] Basic metabolic 2000 panel 14.0 {RATIO} Normal 10-20 [facility] Work Phone: Comment on above: Test performed at:[facility] [address]xasymsft[address] [place] [address] Basic metabolic 2000 panel 72 mL/min Normal [facility] Work Phone: Comment on above: Test performed at:[facility] Luplnyzzst[address] [place], [place] [id number] Basic metabolic 2000 panel 138 mmol/L Normal 136-145 [facility] Work Phone: Comment on above: Test performed at:[facility] Fftzepszly[address] [place], [place] [id number] Basic metabolic 2000 panel 1.0 mg/dL Normal 0.6-1.0 [facility] Work Phone: Comment on above: Test performed at:[facility] K[address]zuhgiei2062 [place] [address] Basic metabolic 2000 panel 59 mL/min Abnormal [facility] Work Phone: Comment on above: Test performed at:[facility] Xerzcsvljz[address] [place], [place] [id number] MagnesiumOrdered By: Interactive Web Developer on 03-09-2015 Magnesium mass conc 1.6 mg/dL Abnormal 1.8-2.4 Compr ehensive Internal Medicine Work Phone: Comment on above: Test performed at:[facility] Lgqjzrghdi8[address] [place], [place] [id number] Comprehensive Metabolic Prof ilOrdered By: Interactive Web Developer on 01-06-2015 Comprehensive metabolic 2000 panel 23 U/L Normal 12-78 Comprehensi ve Internal Medicine Work Phone: Comment on above: Test performed at:[facility] Rptgmwmtam33[address] [place] [address] Comprehensive metabolic 2000 panel 53 mL/min Abnormal Comprehensi ve Internal Medicine Work Phone: Comment on above: Test performed at:[facility] Xtorqhdjyl1574 [address] [place], [place] [id number] Comprehensive metabolic 2000 panel 17 mg/dL Normal 7-18 Comprehensi ve Internal Medicine Work Phone: Comment on above: Test performed at:[facility] [address] [place] [address] Comprehensive metabolic 2000 panel 7.7 g/dL Normal 6.4-8.2 Comprehensi ve Internal Medicine Work Phone: Comment on above: Test performed at:[facility] [address] [place] [address] Comprehensive metabolic 2000 panel 1.1 mg/dL Abnormal 0.6-1.0 Comprehensi ve Internal Medicine Work Phone: Comment on above: Test performed at:[facility] [address] [place] [address] Comprehensive metabolic 2000 panel 3.9 g/dL Normal 3.4-5.0 Comprehensi ve Internal Medicine Work Phone: Comment on above: Test performed at:[facility] [address] [place] [address] Comprehensive metabolic 2000 panel 3.8 g/dL Normal 2.7-4.2 Comprehensi ve Internal Medicine Work Phone: Comment on above: Test performed at:[facility] [address] [place] [address] Comprehensive metabolic 2000 panel 106 mmol/L Normal 98-107 Comprehensi ve Internal Medicine Work Phone: Comment on above: Test performed at:[facility] [address] [place] [address] Comprehensive metabolic 2000 panel 64 mL/min Normal Comprehensi ve Internal Medicine Work Phone: Comment on above: Test performed at:[facility] [address] [place] [address] Comprehensive metabolic 2000 panel 7 1 Normal 5-15 Comprehensi ve Internal Medicine Work Phone: Comment on above: Test performed at:[facility] [address] [place] [address] Comprehensive metabolic 2000 panel 26.0 mmol/L Normal 21.0-32.0 Comprehensi ve Internal Medicine Work Phone: Comment on above: Test performed at:[facility] [address] [place] [address] Comprehensive metabolic 2000 panel 136 mg/dL Abnormal 70-110 Comprehensi ve Internal Medicine Work Phone: Comment on above: Fasting Glucose resu lt greater than or equal to 126 mg/dLsuggests DIABETES MELLITUS per A.D.A. criteria. Test performed at:[facility] [address] [place], [place] [id number] Comprehensive metabolic 2000 panel 4.1 mmol/L Normal 3.5-5.1 Comprehensi ve Internal Medicine Work Phone: Comment on above: Test performed at:[facility] [address] [place], [place] [address] Comprehensive metabolic 2000 panel 139 mmol/L Normal 136-145 Comprehensi ve Internal Medicine Work Phone: Comment on above: Test performed at:[facility] [address] [place] [address] Comprehensive metabolic 2000 panel 0.40 mg/dL Normal 0.00-4.00 Comprehensi ve Internal Medicine Work Phone: Comment on above: Test performed at:[facility] [address] [place], [place] [address] Comprehensive metabolic 2000 panel 104 U/L Normal 50-136 Comprehensi ve Internal Medicine Work Phone: Comment on above: Test performed at:[facility] [address] [place] [address] Comprehensive metabolic 2000 panel 15 U/L Normal 15-37 Comprehensi ve Internal Medicine Work Phone: Comment on above: Test performed at:[facility] [address] [place], [place] [address] Comprehensive metabolic 2000 panel 9.3 mg/dL Normal 8.5-10.1 Comprehensi ve Internal Medicine Work Phone: Comment on above: Test performed at:[facility] [address] [place] [address] Comprehensive metabolic 2000 panel 1.0 {RATIO} Normal 0.9-2.4 Comprehensi ve Internal Medicine Work Phone: Comment on above: Test performed at:[facility] [address] [place] [address] Comprehensive metabolic 2000 panel 15.5 {RATIO} Normal 10-20 Comprehensi ve Internal Medicine Work Phone: Comment on above: Test performed at:[facility] [address] [place] [address] MagnesiumOrdered By: Interactive Web Developer on 01-06-2015 Magnesium mass conc 1.7 mg/dL Abnormal 1.8-2.4 Compr ehensive Internal Medicine Work Phone: Comment on above: Test performed at:[facility] [address] [place] [address] PTH,INTACTOrdered By: Interactive Web Developer on 01-06-2015 PTH,INTACT 14 pg/mL Normal 14-72 [facility] Work Phone: Comment on above: Test performed at:[facility] [address] [place] [address] Comprehensive Metabolic Prof ilOrdered By: Interactive Web Developer on 10-31-2014 Albumin mass conc 4.0 g/dL Normal 3.4-5.0 Compreh ensive Internal Medicine Work Phone: Comment on above: Test performed at:[facility] [address] [place] [address] Albumin/Globulin mass ratio 1.1 {RATIO} Normal 0.9-2.4 [facility] Work Phone: Comment on above: Test performed at:[facility] [address] [place] [address] ALT enzyme act/vol 23 U/L Normal 12-78 [facility] Work Phone: Comment on above: Test performed at:[facility] [address] [place] [address] AST enzyme act/vol 10 U/L Abnormal 15-37 [facility] Work Phone: Comment on above: Test performed at:[facility] [address] [place] [address] Bilirubin mass conc 0.40 mg/dL Normal 0.00-4.00 Compr [facility] Internal Medicine Work Phone: Comment on above: Test performed at:[facility] [address] [place] [address] Calcium mass conc 8.9 mg/dL Normal 8.5-10.1 Compreh [facility] Internal Medicine Work Phone: Comment on above: Test performed at:[facility] [address] [place] [address] Chloride molar conc 107 mmol/L Normal 98-107 Compr [facility] Internal Medicine Work Phone: Comment on above: Test performed at:[facility] [address] [place] [address] CO2 molar conc 24.0 mmol/L Normal 21.0-32.0 [facility] Work Phone: Comment on above: Test performed at:[facility] [address] [place] [address] Creatinine mass conc 1.0 mg/dL Normal 0.6-1.0 Comp [facility] Internal Medicine Work Phone: Comment on above: Test performed at:[facility] [address] [place] [address] GFR/1.73 sq M predicted among non-blacks MDRD vol rate/area (S/P/Bld) 59 mL/min/{1.73_m2} Abnormal Comprehe nsive Internal Medicine Work Phone: Comment on above: Test performed at:[facility] [address] [place] [address] Globulin mass conc (S) 3.8 g/dL Normal 2.7-4.2 [facility] Work Phone: Comment on above: Test performed at:[facility] [address] [place] [address] Glucose mass conc 128 mg/dL Abnormal 70-110 Compreh ensive Internal Medicine Work Phone: Comment on above: Fasting Glucose resu lt greater than or equal to 126 mg/dLsuggests DIABETES MELLITUS per A.D.A. criteria. Test performed at:[facility] Xnbwghjaqb[address] [place], [place] [address] Potassium molar conc 3.9 mmol/L Normal 3.5-5.1 Comp rehensive Internal Medicine Work Phone: Comment on above: Test performed at:[facility] [address] [place] [address] Protein mass conc 7.8 g/dL Normal 6.4-8.2 Compreh ensive Internal Medicine Work Phone: Comment on above: Test performed at:[facility] [address] [place] [address] Sodium molar conc 136 mmol/L Normal 136-145 Compreh ensive Internal Medicine Work Phone: Comment on above: Test performed at:[facility] [address] [place] [address] Urea nitrogen mass conc 11 mg/dL Normal 7-18 [facility] Work Phone: Comment on above: Test performed at:[facility] [address] [place] [address] Comprehensive Metabolic Profil 99 U/L Normal 50-136 [facility] Work Phone: Comment on above: Test performed at:[facility] [address] [place], [place] [address] Comprehensive Metabolic Profil 11.0 {RATIO} Normal 10-20 [facility] Work Phone: Comment on above: Test performed at:[facility] [address] [place], [place] [address] Comprehensive Metabolic Profil 72 mL/min Normal [facility] Work Phone: Comment on above: Test performed at:[facility] [address] [place], [place] [address] Comprehensive Metabolic Profil 5 1 Normal 5-15 [facility] Work Phone: Comment on above: Test performed at:[facility] [address] [place], [place] [address] CAOrdered By: Interactive Web Developer on 09-16-2014 Calcium mass conc 9.6 mg/dL [...] enzyme act/vol 13 U/L Abnormal 15-37 [facility]pre [facility] Work Phone: Bilirubin mass conc [...] ensive Internal Medicine Work Phone: C-REACTIVE PROTEIN ([id number])Or dered By: Interactive Web Developer on 01-18-2013 CRP mass conc 3.5 mg/L Normal 0.0-4.9 Comprehensi ve Internal Medicine Work Phone: Comment on above: PATIENT NOT FASTINGP ERFORMED BY: [place] [id number] [facility] [id number] CALCIUM SERUM ([id number])Ordered By: Interactive Web Developer on 01-18-2013 Calcium mass conc 10.4 mg/dL Abnormal 8.6-10.2 Compreh ensive Internal Medicine Work Phone: Comment on above: PATIENT NOT FASTINGP ERFORMED BY: [address] [id number] CAUOrdered By: System Manage r on 01-18-2013 CAU 117.8 {mg/24_hr} Normal 100.0-300.0 Compreh ensive Internal Medicine Work Phone: Comment on above: Performed at: [address] [id number] Director: Дмитрий Alvarez PhD, Phone: [phone] CAU 3.1 mg/dL Normal [facility] Work Phone: Microscopic ExaminationOrder ed By: Interactive Web Developer on 01-18-2013 Bacteria LM.HPF #/area (Urine sed) None seen Normal [facility] Work Phone: Comment on above: PATIENT NOT FASTINGP ERFORMED BY: [address] [id number] Epithelial cells LM.HPF #/area (Urine sed) 0-10 Normal 0 - 10 [facility] Work Phone: Comment on above: PATIENT NOT FASTINGP ERFORMED BY: LabRaymond [place] [id number] [facility] [id number] Mucus Ql (Urine sed) Present Normal Comp rehensive Internal Medicine Work Phone: Comment on above: PATIENT NOT FASTINGP ERFORMED BY: [address] [id number] RBC LM.HPF #/area (Urine sed) 0-3 Normal 0 - 3 [facility] Work Phone: Comment on above: PATIENT NOT FASTINGP ERFORMED BY: [address] [id number] WBC LM.HPF #/area (Urine sed) 0-5 Normal 0 - 5 [facility] Work Phone: Comment on above: PATIENT NOT FASTINGP ERFORMED BY: MONICA [facility] Cyxlht8200 [address]Dublin [place] [id number] PARATHORMONE ([id number])Ordered By: Interactive Web Developer on 01-18-2013 Parathyrin.intact mass conc 34 pg/mL Normal 15-65 [facility] Work Phone: Comment on above: PATIENT NOT FASTINGP ERFORMED BY: MONICA [facility] Dexakk2778 [address] RoadDublin [place] [id number] SED RATE ERYTHROCYTE ([id number]) Ordered By: Interactive Web Developer on 01-18-2013 ESR Velocity (Bld) 3 mm/h Normal 0-40 [facility] [facility] Internal Medicine Work Phone: Comment on above: PATIENT NOT FASTINGP ERFORMED BY: MONICA [facility] Lscidq9546 [address]Dublin [place] [id number] URINALYSIS ([id number])Ordered By : Interactive Web Developer on 01-18-2013 Appearance Nom (U) Clear Normal Compre [facility] Internal Medicine Work Phone: Comment on above: PATIENT NOT FASTINGP ERFORMED BY: MONICA [facility] Zvvubv6151 [address]Dublin [place] [id number] Information: [id number] Bilirubin Ql (U) Negative Normal Comprehe nsive Internal Medicine Work Phone: Comment on above: PATIENT NOT FASTINGP ERFORMED BY: [facility] Ycwplo6304 [address]Dublin [place] [id number] Information: [id number] Bilirubin Ql (U) Negative Normal Comprehe nsive Internal Medicine Work Phone: Color Nom (U) Yellow Normal Comprehensi ve Internal Medicine Work Phone: Comment on above: PATIENT NOT FASTINGP ERFORMED BY: [facility] Pqlxun9636 [address]Dublin [place] [id number] Information: [id number] Glucose Ql (U) Negative Normal Comprehens lucio Internal Medicine Work Phone: Comment on above: PATIENT NOT FASTINGP ERFORMED BY: MONICA [facility] Psitnv3848 [address] RoadDublin [place] [id number] Information: [id number] Glucose Ql (U) Negative Normal Comprehens lucio Internal Medicine Work Phone: Hemoglobin Ql (U) Negative Normal Compreh ensive Internal Medicine Work Phone: Comment on above: PATIENT NOT FASTINGP ERFORMED BY: MONICA [facility] Gltoey9782 [address] RoadDublin [place] [id number] Information: [id number] Hemoglobin Ql (U) Negative Normal Compreh ensive Internal Medicine Work Phone: Ketones Ql (U) Negative Normal Comprehens lucio Internal Medicine Work Phone: Comment on above: PATIENT NOT FASTINGP ERFORMED BY: MONICA [facility] Ansuvf8030 [address] RoadDublin [place] [id number] Information: [id number] Ketones Ql (U) Negative Normal Comprehens lucio Internal Medicine Work Phone: Leukocyte esterase Test strip Ql (U) 2+ Abnormal [facility] Work Phone: Comment on above: PATIENT NOT FASTINGP ERFORMED BY: MONICA [facility] Osqpog4494 [address]blin [place] [id number] Information: [id number] Microscopic observation LM Nom (Urine sed) See below: Normal [facility] Work Phone: Comment on above: PATIENT NOT FASTINGP ERFORMED BY: [facility] Hhklxc7723 [address] RoadDublin [place] [id number] Information: [id number] Nitrite Ql (U) Negative Normal Comprehens lucio Internal Medicine Work Phone: Comment on above: PATIENT NOT FASTINGP ERFORMED BY: [facility] Pythwq5170 [address] RoadDublin [place] [id number] Information: [id number] Nitrite Ql (U) Negative Normal Comprehens lucio Internal Medicine Work Phone: pH (U) 6.5 [pH] Normal 5.0-7.5 [facility] Work Phone: Comment on above: PATIENT NOT FASTINGP ERFORMED BY: [facility] Rtkywp4802 [address]blin [place] [id number] Information: [id number] Protein Ql (U) Negative Normal Comprehens lucio Internal Medicine Work Phone: Comment on above: PATIENT NOT FASTINGP ERFORMED BY: [facility] Crbego9230 M[address]ini RoadCritical Access Hospitalin [place] [id number] Information: [id number] Protein Ql (U) Negative Normal Comprehens lucio Internal Medicine Work Phone: Specific gravity Relative Density (U) 1.012 1 Normal 1.005-1.030 Comprehensi Internal Medicine Work Phone: Comment on above: PATIENT NOT FASTINGP ERFORMED BY: [facility] V[address]cyd[address] [facility] [id number] Information: [id number] Urobilinogen (U) [Mass/Vol] 0.2 mg/dL Normal 0.0-1.[address] [facility] Internal Medicine Work Phone: Urobilinogen Test strip mass conc (U) 0.2 mg/dL Normal 0.0-1.9 Comprehensiv e Internal Medicine Work Phone: Comment on above: PATIENT NOT FASTINGP ERFORMED BY: [facility] Medqgx[address] [facility]in [place] [id number] Information: [id number] URINE AUDRA CULTURE-IDENTIFICA TN ([id number])Ordered By: Interactive Web Developer on 01-18-2013 Bacteria identified Cx Nom (U) Final report Normal [facility] Work Phone: Comment on above: PATIENT NOT FASTINGP ERFORMED BY: [facility] Dtzjfa8221 M[address]ini RoadCritical Access Hospitalin [place] [id number] Information: [id number] Bacteria identified Cx Nom (U) CNSNSS Normal [...] S S PATIENT NOT FASTINGP ERFORMED BY: [facility] [id number] Information: [id number] Bacteria identified Cx Nom (U) Enterococcus faecalis Normal [facility] Internal Medicine Work Phone: Comment on above: 600 Colonies/mLNote: this isolate is vancomycin- susceptible.This information is provided for epidemiologic purposesonly: vancomycin is not among the antibioticsrecommended for therapy of urinary tract infectionscaused by Enterococcus.For Enterococcus species, cephalosporins, aminoglycosides (except forhigh-level resistance screening), clindamycin, and trimethoprim-sulfamethoxazole are not effective clinically. Fluoroquinolones areused primarily for treating urinary tract infections. (CLSI, B492-I39,2009) PATIENT NOT FASTINGP ERFORMED BY: [employer] Rjqift4730 DataW[employer] VenturesAtrium Health [facility] [id number] Information: [id number] Vitamin D Hydroxy ([id number])Ord ered By: Interactive Web Developer on 01-18-2013 25-Hydroxyvitamin D2+25-Hydroxyvitamin D3 mass conc 31.4 ng/mL Normal 30.0-100.0 [facility] Work Phone: Comment on above: Vitamin D deficiency has been defined by the [place] ofMedicine and an Endocrine Society practice guideline as alevel of serum 25-OH vitamin D less than 20 ng/mL (1,2).The Endocrine Society went on to further define vitamin Dinsufficiency as a level between 21 and 29 ng/mL (2).1. IOM ([place] of [employer]). 2010. Dietary reference intakes for calcium and D. [place]: The National Academies Press.2. Hernesto MF, Carolyn NC, Christoph RODRIGUEZ, et al. Evaluation, treatment, and prevention of vitamin D deficiency: an Endocrine Society clinical practice guideline. JCEM. 2010; 96(7):1911-30. PATIENT NOT FASTINGP ERFORMED BY: [facility]Leewsn3335 [facility] [id number] THORACIC SPINE 3 VIEWSOrdere d By: Interactive Web Developer on 01-17-2013 THORACIC SPINE 3 VIEWS See [...] Johnson M.D.January 17, 2013 at 4:14:10 PM [id number] Signed GP/GP If you are the referring physician and would like to consult with theradiologist who provided this interpretation, please contact Devang Cain at [phone]. If this radiologist is unavailable, youwill be directed to another radiologist to assist. If you are a patient with a question regarding this report, pleasecontactyour referring physician directly. Professional Interpretation Provided By: [employer], Phone , These documents contain legally protected [...] destructionofthese documents. Dictated on 01/17/13 1334 by Frances Johnson MDeleTranscribed on 01/17/13 1641 by ITS IMPORTSign by Jorge Johnson MD on 01/17/13 1642 Sign by: Jorge Johnson MD Calcium Serum ([id number])Ordered By: Interactive Web Developer on 01-11-2013 Calcium mass conc 10.4 mg/dL Abnormal 8.6-10.2 Compreh ensive Internal Medicine Work Phone: Comment on above: PATIENT NOT FASTINGP ERFORMED BY: eSNF Blsvih7847 [facility] [id number] Information: [id number] Calcium Serum (87863)Ordered By: Interactive Web Developer on 01-03-2013 Calcium mass conc 10.3 mg/dL Abnormal 8.6-10.2 Compreh ensive Internal Medicine Work Phone: Comment on above: THURSDAY; PATIENT NOT FASTINGPERFORMED BY: Semant.io6370 [facility] [id number] Information: [id number] CHEST, PA AND LATERALOrdered By: Interactive Web Developer on 12-30-2012 CHEST, PA AND LATERAL See Note Normal [facility] Work Phone: Comment on above: PROCEDURE: X-RAY [facility] REASON FOR EXAM: Female, 62 years old. [...] Johnson M.D.December 30, 2012 at 3:27:54 PM [phone] Signed GP/GP If you are the referring physician and would like to consult with theradiologist who provided this interpretation, please contact Devang Cain at [phone]. If this radiologist is unavailable, youwill be directed to another radiologist to assist. If you are a patient with a question regarding this report, pleasecontactyour referring physician directly. Professional Interpretation Provided By: [employer], Phone , These documents contain legally protected [...] destructionofthese documents. Dictated on 12/30/12 0704 by Ran Johnson MDranscribed on 12/30/12 1538 by ITS IMPORTSign by Jorge Johnson MD on 12/30/12 1539 Sign by: Jorge Johnson MD PARATHORMONE ([id number])Ordered By: Interactive Web Developer on 12-28-2012 Parathyrin.intact mass conc 14 pg/mL Abnormal 15-65 [facility] Work Phone: Comment on above: PATIENT NOT FASTINGP ERFORMED BY: [facility] Ecvtin3856 [facility] [id number] Information: ADD [id number] AND DRAW FEE 99 6660 CBC WITH MANUAL DIFF (07517) Ordered By: Interactive Web Developer on 12-24-2012 Basophils #/vol (Bld) 0.0 {x10E3/uL} Normal 0.0-0.2 [facility] Work Phone: Comment on above: PATIENT NOT FASTINGP ERFORMED BY: MONICA [facility] Rjlcdd9200 [facility] [id number] Information: [id number] Basophils (Bld) [#/Vol] 0.0 10*3/uL Normal 0.0-0.2 [facility] Work Phone: Basophils/100 WBC (Bld) 1 % Normal 0-3 [facility] Work Phone: Comment on above: PATIENT NOT FASTINGP ERFORMED BY: CB [facility] Ybvvyo0818 [facility] [id number] Information: [id number] Eosinophils #/vol (Bld) 0.1 {x10E3/uL} Normal 0.0-0.4 [facility] Work Phone: Comment on above: PATIENT NOT FASTINGP ERFORMED BY: [place]Co[place] [id number] [facility] [id number] Information: [id number],[id number] Eosinophils (Bld) [#/Vol] 0.1 10*3/uL Normal 0.0-0.4 [facility] Work Phone: Eosinophils/100 WBC (Bld) 2 % Normal 0-7 [facility] Work Phone: Comment on above: PATIENT NOT FASTINGP ERFORMED BY: [facility]Utivfo2365 [facility] [id number] Information: [id number] Erythrocyte distribution width Ratio (RBC) 13.8 % Normal 12.3-15.4 [facility] Work Phone: Comment on above: PATIENT NOT FASTINGP ERFORMED BY: CB [facility] Rntgua0351 [facility] [id number] Information: [id number] Hematocrit Volume Fraction (Bld) 41.9 % Normal 34.0-46.6 [facility] Work Phone: Comment on above: PATIENT NOT FASTINGP ERFORMED BY: [place] [id number] [facility] [id number] Information: [id number] Hemoglobin mass conc (Bld) 14.1 g/dL Normal 11.1-15.9 [facility] Work Phone: Comment on above: PATIENT NOT FASTINGP ERFORMED BY: MONICA RoseAurea TateBobovj1299 [facility] [id number] Information: [id number] Immature granulocytes #/vol (Bld) 0.0 {x10E3/uL} Normal 0.0-0.1 [facility] Work Phone: Comment on above: PATIENT NOT FASTINGP ERFORMED BY: MONICA [facility] HospitalAurea TateMtlthx6804 [facility] [id number] Information: [id number] Immature granulocytes (Bld) [#/Vol] 0.0 10*3/uL Normal 0.0-0.1 [facility] Work Phone: Immature granulocytes/100 WBC (Bld) 0 % Normal 0-2 [facility] Work Phone: Comment on above: PATIENT NOT FASTINGP ERFORMED BY: MONICA Tatelin6370 [facility] [id number] Information: [id number] Lymphocytes #/vol (Bld) 2.3 {x10E3/uL} Normal 0.7-4.5 [facility] Work Phone: Comment on above: PATIENT NOT FASTINGP ERFORMED BY: MONICA [place] [id number] [facility] [id number] Information: [id number] Lymphocytes (Bld) [#/Vol] 2.3 10*3/uL Normal 0.7-4.5 [facility] Work Phone: Lymphocytes/100 WBC (Bld) 38 % Normal 14-46 [facility] Work Phone: Comment on above: PATIENT NOT FASTINGP ERFORMED BY: MONICA [facility] Jenrsp2215 [facility] [id number] Information: [id number] MCH Entitic mass (RBC) 30.1 pg Normal 26.6-33.0 [facility] Work Phone: Comment on above: PATIENT NOT FASTINGP ERFORMED BY: MONICA [place]Ray[place] [id number] [facility] [id number] Information: 337212,[id number] MCHC mass conc (RBC) 33.7 g/dL Normal 31.5-35.7 [facility] Internal Medicine Work Phone: Comment on above: PATIENT NOT FASTINGP ERFORMED BY: [address] [id number] Information: [id number] MCV Entitic volume (RBC) 90 fL Normal 79-97 [facility] Work Phone: Comment on above: PATIENT NOT FASTINGP ERFORMED BY: [address] [id number] Information: [id number] Monocytes #/vol (Bld) 0.4 {x10E3/uL} Normal 0.1-1.0 [facility] Work Phone: Comment on above: PATIENT NOT FASTINGP ERFORMED BY: [place] [id number] [facility] [id number] Information: [id number] Monocytes (Bld) [#/Vol] 0.4 10*3/uL Normal 0.1-1.0 [facility] Work Phone: Monocytes/100 WBC (Bld) 6 % Normal 4-13 [facility] Work Phone: Comment on above: PATIENT NOT FASTINGP ERFORMED BY: [address] [id number] Information: [id number] Neutrophils #/vol (Bld) 3.2 {x10E3/uL} Normal 1.8-7.8 [facility] Work Phone: Comment on above: PATIENT NOT FASTINGP ERFORMED BY: [place] [id number] [facility] [id number] Information: [id number] Neutrophils (Bld) [#/Vol] 3.2 10*3/uL Normal 1.8-7.8 [facility] Work Phone: Neutrophils/100 WBC (Bld) 53 % Normal 40-74 [facility] Work Phone: Comment on above: PATIENT NOT FASTINGP ERFORMED BY: [place] 3762470 [facility] [id number] Information: [id number] Platelets #/vol (Bld) 260 {x10E3/uL} Normal 140-415 [facility] Work Phone: Comment on above: PATIENT NOT FASTINGP ERFORMED BY: [address] [id number] Information: [id number] Platelets (Bld) [#/Vol] 260 10*3/uL Normal 140-415 [facility] Work Phone: RBC #/vol (Bld) 4.68 {x10E6/uL} Normal 3.77-5.28 Comp [facility] Internal Medicine Work Phone: Comment on above: PATIENT NOT FASTINGP ERFORMED BY: [place] [id number] [facility] [id number] Information: [id number] RBC (Bld) [#/Vol] 4.68 10*6/uL Normal 3.77-5.28 Compr [facility] Internal Medicine Work Phone: WBC #/vol (Bld) 6.0 {x10E3/uL} Normal 4.0-10.5 Compr ensive Internal Medicine Work Phone: Comment on above: PATIENT NOT FASTINGP ERFORMED BY: [place] [id number] [facility] [id number] Information: [id number] WBC (Bld) [#/Vol] 6.0 10*3/uL Normal 4.0-10.5 [facility] Internal Medicine Work Phone: METABOLIC PANEL, KOREYI JV ([id number])Ordered By: Interactive Web Developer on 12-24-2012 Albumin mass conc 4.6 g/dL Normal 3.6-4.8 [facility] Internal Medicine Work Phone: Comment on above: PATIENT NOT FASTINGP ERFORMED BY: CB [facility] Lhqbtw6170 [address]Dublin [place] [id number] Albumin/Globulin mass ratio 1.8 {ratio} Normal 1.1-2.[address] [facility] Internal Medicine Work Phone: Comment on above: PATIENT NOT FASTINGP ERFORMED BY: CB [facility] Olyjie2121 [address] RoadDublin [place] [id number] ALP [Catalytic activity/Vol] 94 U/L Normal 25-165 [facility] Work Phone: ALP enzyme act/vol 94 [iU]/L Normal 25-165 [facility] Internal Medicine Work Phone: Comment on above: PATIENT NOT FASTINGP ERFORMED BY: CB [facility] Vxpser2732 [address] RoadDublin [place] [id number] ALT [Catalytic activity/Vol] 26 U/L Normal 0-32 [facility] Work Phone: ALT enzyme act/vol 26 [iU]/L Normal 0-32 [facility] Internal Medicine Work Phone: Comment on above: PATIENT NOT FASTINGP ERFORMED BY: CB [facility] Vzukkw6172 [address]Dublin [place] [id number] AST [Catalytic activity/Vol] 19 U/L Normal 0-40 [facility] Work Phone: AST enzyme act/vol 19 [iU]/L Normal 0-40 [facility] Internal Medicine Work Phone: Comment on above: PATIENT NOT FASTINGP ERFORMED BY: CB [facility] Xkgage6208 [address]Dublin [place] [id number] Bilirubin mass conc 0.4 mg/dL Normal 0.0-1.2 Compr ehensive Internal Medicine Work Phone: Comment on above: PATIENT NOT FASTINGP ERFORMED BY: CB [facility] Tvvuch3058 [address] RoadDublin [place] [id number] Calcium mass conc 10.6 mg/dL Abnormal 8.6-10.2 Compreh ensive Internal Medicine Work Phone: Comment on above: PATIENT NOT FASTINGP ERFORMED BY: CB [facility] Lntxps5518 [address] Roadblin [place] [id number] Chloride molar conc 103 mmol/L Normal 97-108 Compr ehensive Internal Medicine Work Phone: Comment on above: PATIENT NOT FASTINGP ERFORMED BY: CB [facility] Gvhujk1065 [address] RoadCritical Access Hospitalin [place] [id number] CO2 molar conc 24 mmol/L Normal 20-32 Comprehens lucio Internal Medicine Work Phone: Comment on above: PATIENT NOT FASTINGP ERFORMED BY: CB [facility] Crbxfj[address] [facility]in [place] [id number] Creatinine mass conc 0.72 mg/dL Normal 0.57-1.00 Comp rehensive Internal Medicine Work Phone: Comment on above: PATIENT NOT FASTINGP ERFORMED BY: CB [facility] Ljjrbu[address] [facility] [place] [id number] GFR/1.73 sq M predicted among blacks CKD-EPI vol rate/area (S/P/Bld) 104 mL/min/1.73 Normal Comprehensiv e Internal Medicine Work Phone: Comment on above: PATIENT NOT FASTINGP ERFORMED BY: CB [facility] Wvvgli0987 [address] RoadCritical Access Hospitalin [place] [id number] GFR/1.73 sq M predicted among non-blacks CKD-EPI vol rate/area (S/P/Bld) 90 mL/min/1.73 Normal [facility] Work Phone: Comment on above: PATIENT NOT FASTINGP ERFORMED BY: CB [facility] Vyctom4236 [address] RoadCritical Access Hospitalin [place] [id number] Globulin mass conc (S) 2.5 g/dL Normal 1.5-4.5 [facility] Work Phone: Comment on above: PATIENT NOT FASTINGP ERFORMED BY: MONICA LabAnarp Zpctxs9815 [address] RoadDublin [place] [id number] Glucose mass conc 100 mg/dL Abnormal 65-99 Compreh ensive Internal Medicine Work Phone: Comment on above: PATIENT NOT FASTINGP ERFORMED BY: MONICA LabAurea TateIbgyao8668 [address] RoadDublin [place] [id number] Potassium molar conc 4.5 mmol/L Normal 3.5-5.2 Comp rehensive Internal Medicine Work Phone: Comment on above: PATIENT NOT FASTINGP ERFORMED BY: MONICA Tatelin6370 [address] Roadblin [place] [id number] Protein mass conc 7.1 g/dL Normal 6.0-8.5 Compreh ensive Internal Medicine Work Phone: Comment on above: PATIENT NOT FASTINGP ERFORMED BY: MONICA Tatelin[address] [facility] [id number] Sodium molar conc 142 mmol/L Normal 134-144 Compreh ensive Internal Medicine Work Phone: Comment on above: PATIENT NOT FASTINGP ERFORMED BY: MONICA Tatelin[address] [facility] [id number] Urea nitrogen mass conc 10 mg/dL Normal 8-27 [facility] Work Phone: Comment on above: PATIENT NOT FASTINGP ERFORMED BY: MONICA Tatelin[address] [facility] [id number] Urea nitrogen/Creatinine mass ratio 14 mg/mg Normal 11-26 [facility] Work Phone: Comment on above: PATIENT NOT FASTINGP ERFORMED BY: MONICA [address] [facility] [place] [id number] Microscopic ExaminationOrder ed By: Interactive Web Developer on 12-24-2012 Bacteria LM.HPF #/area (Urine sed) None seen Normal [facility] Work Phone: Comment on above: PATIENT NOT FASTINGP ERFORMED BY: MONICA Tatelin[address] [facility] [id number] Epithelial cells LM.HPF #/area (Urine sed) 0-10 Normal 0 - 10 [facility] Work Phone: Comment on above: PATIENT NOT FASTINGP ERFORMED BY: MONICA [facility] X[address]hfp[address] [facility] [place] [id number] RBC LM.HPF #/area (Urine sed) 0-3 Normal 0 - 3 [facility] Work Phone: Comment on above: PATIENT NOT FASTINGP ERFORMED BY: CB [facility] Sbahis[address] [facility] [id number] WBC LM.HPF #/area (Urine sed) 0-5 Normal 0 - 5 [facility] Work Phone: Comment on above: PATIENT NOT FASTINGP ERFORMED BY: MONICA [facility] Xsxsjx3029 [facility] [id number] TSH ([id number])Ordered By: Syste m French Teacher on 12-24-2012 Thyrotropin Qn 1.100 {uIU/mL} Normal 0.450-4.500 Compr ehensive Internal Medicine Work Phone: Comment on above: PATIENT NOT FASTINGP ERFORMED BY: MONICA [facility] Vnowky[address] [facility] [id number] URINALYSIS, W/ MICRO ([id number]) Ordered By: Interactive Web Developer on 12-24-2012 Appearance Nom (U) Clear Normal Compre hensive Internal Medicine Work Phone: Comment on above: PATIENT NOT FASTINGP ERFORMED BY: CB [facility] Hdvujj[address] [facility] [place] [id number] Bilirubin Ql (U) Negative Normal Comprehe nsive Internal Medicine Work Phone: Comment on above: PATIENT NOT FASTINGP ERFORMED BY: CB [facility] Yuzkwo[address] [facility] [place] [id number] Bilirubin Ql (U) Negative Normal Comprehe nsive Internal Medicine Work Phone: Color Nom (U) Yellow Normal Comprehensi ve Internal Medicine Work Phone: Comment on above: PATIENT NOT FASTINGP ERFORMED BY: CB [facility] Rgcllr8773 [address] RoadDublin [place] [id number] Glucose Ql (U) Negative Normal Comprehens lucio Internal Medicine Work Phone: Comment on above: PATIENT NOT FASTINGP ERFORMED BY: MONICA LabAnarp Vklmgs0723 [address] RoadDublin [place] [id number] Glucose Ql (U) Negative Normal Comprehens lucio Internal Medicine Work Phone: Hemoglobin Ql (U) Negative Normal Compreh ensive Internal Medicine Work Phone: Comment on above: PATIENT NOT FASTINGP ERFORMED BY: MONICA [facility] Euywmm7713 [address] RoadDublin [place] [id number] Hemoglobin Ql (U) Negative Normal Compreh ensive Internal Medicine Work Phone: Ketones Ql (U) Negative Normal Comprehens lucio Internal Medicine Work Phone: Comment on above: PATIENT NOT FASTINGP ERFORMED BY: MONICA [facility] Suhwla8139 [address] RoadDublin [place] [id number] Ketones Ql (U) Negative Normal Comprehens lucio Internal Medicine Work Phone: Leukocyte esterase Test strip Ql (U) Trace Abnormal [facility] Work Phone: Comment on above: PATIENT NOT FASTINGP ERFORMED BY: MONICA Sheri Ccsppm7443 [address] RoadDublin [place] [id number] Microscopic observation LM Nom (Urine sed) See below: Normal [facility] Work Phone: Comment on above: PATIENT NOT FASTINGP ERFORMED BY: MONICA [facility] Zcuyto8484 [address] RoadDublin [place] [id number] Nitrite Ql (U) Negative Normal Comprehens lucio Internal Medicine Work Phone: Comment on above: PATIENT NOT FASTINGP ERFORMED BY: MONICA [facility] Ihbbik9762 [address] RoadDublin [place] [id number] Nitrite Ql (U) Negative Normal Comprehens lucio Internal Medicine Work Phone: pH (U) 7.0 [pH] Normal 5.0-7.5 [facility] Work Phone: Comment on above: PATIENT NOT FASTINGP ERFORMED BY: MONICA [facility] Wankco3500 [address] RoadDublin [place] [id number] Protein Ql (U) Negative Normal Comprehens lucio Internal Medicine Work Phone: Comment on above: PATIENT NOT FASTINGP ERFORMED BY: CB [facility] Flvtez4385 [address] RoadDublin [place] [id number] Protein Ql (U) Negative Normal Comprehens lucio Internal Medicine Work Phone: Specific gravity Relative Density (U) 1.008 1 Normal 1.005-1.030 Comprehensi Internal Medicine Work Phone: Comment on above: PATIENT NOT FASTINGP ERFORMED BY: CB [facility] Jeduan0512 [address] RoadDublin [place] [id number] Urobilinogen (U) [Mass/Vol] 0.2 mg/dL Normal 0.0-1.[address] [facility] Internal Medicine Work Phone: Urobilinogen Test strip mass conc (U) 0.2 mg/dL Normal 0.0-1.9 Comprehensiv e Internal Medicine Work Phone: Comment on above: PATIENT NOT FASTINGP ERFORMED BY: CB [facility] Ufavyw5945 [address] RoadDublin [place] [id number] Vitamin D Hydroxy (68973)Ord ered By: Interactive Web Developer on 12-24-2012 25-Hydroxyvitamin D2+25-Hydroxyvitamin D3 mass conc 30.7 ng/mL Normal 30.0-100.[address] [facility] Internal Medicine Work Phone: Comment on above: Vitamin D deficiency has been defined by the [place] [employer] and an Endocrine Society practice guideline as alevel of serum 25-OH vitamin D less than 20 ng/mL (1,2).The Endocrine Society went on to further define vitamin Dinsufficiency as a level between 21 and 29 ng/mL (2).1. IOM ([place] [employer]). 2010. Dietary reference intakes for calcium and D. [place]: The National Academies Press.2. [place] MF, Carolyn JEONG, Christoph RODRIGUEZ, et al. Evaluation, treatment, and prevention of vitamin D deficiency: an Endocrine Society clinical practice guideline. JCEM. 2010; 96(7):1911-30. PATIENT NOT FASTINGP ERFORMED BY: MONICA [facility]Re[facility] Pblhqm[address] [place] [id number] BILAT SCRN DIGITAL & CADOrde red By: Interactive Web Developer on 09-30-2012 BILAT SCRN DIGITAL & CAD [...] Johnson M.D.September 30, 2012 at 12:35:10 PM [id number] Signed GP/GP If you are the referring physician and would like to consult with theradiologist who provided this interpretation, please contact Devang Cain at [phone]. If this radiologist is unavailable, youwill be directed to another radiologist to assist. If you are a patient with a question regarding this report, pleasecontactyour referring physician directly. Professional Interpretation Provided By: [employer], Phone , These documents contain legally protected [...] documents. Dictated on 09/30/12 1208 by Brandi RICH,GabrieleTranscribed on 09/30/12 1245 by ITS IMPORTSign by Brandi RICH,Jorge on 09/30/12 1246 Sign by: Jorge Johnson MD PARATHORMONE ([id number])Ordered By: Interactive Web Developer on 09-27-2012 Parathyrin.intact mass conc 18 pg/mL Normal 15-65 [facility] Work Phone: Comment on above: PATIENT NOT FASTINGP ERFORMED BY: CB [facility] Xngmlk3673 [address] RoadDublin [place] [id number] PHOSPHORUS ([id number])Ordered By : Interactive Web Developer on 09-27-2012 Phosphate mass conc 3.6 mg/dL Normal 2.5-4.5 [facility] Internal Medicine Work Phone: Comment on above: PATIENT NOT FASTINGP ERFORMED BY: CB [facility] Qcjbvf9534 [address] RoadDublin [place] [id number] Protein Electro, Random Urin eOrdered By: Interactive Web Developer on 09-27-2012 Albumin/Protein.tota l Elph mass fraction (U) 26.8 % Normal [facility] Work Phone: Comment on above: PATIENT NOT FASTINGP ERFORMED BY: CB [facility] Qfsxzb0867 [address] RoadDublin [place] [id number] Alpha 1 globulin/Protein.tot al Elph mass fraction (U) 19.9 % Normal [facility] Work Phone: Comment on above: PATIENT NOT FASTINGP ERFORMED BY: CB [facility] Frohkx2777 [address] RoadDublin [place] [id number] Alpha 2 globulin/Protein.tot al Elph mass fraction (U) 11.8 % Normal [facility] Work Phone: Comment on above: PATIENT NOT FASTINGP ERFORMED BY: CB [facility] Zpeojv8102 [address] RoadDublin [place] [id number] Beta globulin/Protein.tot al Elph mass fraction (U) 18.4 % Normal [facility] Work Phone: Comment on above: PATIENT NOT FASTINGP ERFORMED BY: CB [facility] Pecrkj7676 [address] RoadDublin [place] [id number] Gamma globulin/Protein.tot al Elph mass fraction (U) 23.1 % Normal [facility] Work Phone: Comment on above: PATIENT NOT FASTINGP ERFORMED BY: CB [facility] Nwpigz7893 [address] RoadDublin [place] [id number] Laboratory comment Caden (Report) SPRCS Normal [facility] Work Phone: Comment on above: Protein electrophore sis scan will follow via computer, mail, orcourier delivery. PATIENT NOT FASTINGP ERFORMED BY: CB [facility] Bxblgz5607 [address] RoadDublin [place] [id number] Protein mass conc (U) mg/dL Normal 0.0-15.0 [facility] Work Phone: Comment on above: Verified by repeat analysis PATIENT NOT FASTINGP ERFORMED BY: CB [facility] Ogpxwq2260 [address]Dublin [place] [id number] Protein.monoclonal/P rotein.total Elph mass fraction (U) Not Observed Normal [facility] Work Phone: Comment on above: PATIENT NOT FASTINGP ERFORMED BY: CB [facility] Qerkev1930 [address] RoadDublin [place] [id number] Protein Electro.,SOrdered By : Interactive Web Developer on 09-27-2012 Albumin mass conc 4.5 g/dL Normal 3.2-5.6 Compreh ensive Internal Medicine Work Phone: Comment on above: PATIENT NOT FASTINGP ERFORMED BY: CB [facility] Lhcwlo6630 [address] RoadDublin [place] [id number] Albumin/Globulin mass ratio 1.5 {ratio} Normal 0.7-2.0 [facility] Work Phone: Comment on above: PATIENT NOT FASTINGP ERFORMED BY: MONICA [facility] Vydikz1046 [address]ini RoadCritical Access Hospitalin [place] [id number] Alpha 1 globulin Elph mass conc 0.3 g/dL Normal 0.1-0.4 [facility] Work Phone: Comment on above: PATIENT NOT FASTINGP ERFORMED BY: CB [facility] Iewgiv1449 [address] [facility] [id number] Alpha 2 globulin Elph mass conc 0.8 g/dL Normal 0.4-1.2 [facility] Work Phone: Comment on above: PATIENT NOT FASTINGP ERFORMED BY: MONICA [facility] Xcbspm0818 [address] [facility] [id number] Beta globulin Elph mass conc 1.1 g/dL Normal 0.6-1.3 [facility] Work Phone: Comment on above: PATIENT NOT FASTINGP ERFORMED BY: MONICA [facility] Iybmzk6631 [address] [facility] [id number] Gamma globulin Elph mass conc 0.9 g/dL Normal 0.5-1.6 [facility] Work Phone: Comment on above: PATIENT NOT FASTINGP ERFORMED BY: MONICA [facility] Epmvtq2325 [address] [facility] [id number] Globulin mass conc (S) 3.1 g/dL Normal 2.0-4.5 [facility] Work Phone: Comment on above: PATIENT NOT FASTINGP ERFORMED BY: CB [facility] Psgpif3272 [address] [facility] [id number] Protein mass conc 7.6 g/dL Normal 6.0-8.5 Compreh ensive Internal Medicine Work Phone: Comment on above: PATIENT NOT FASTINGP ERFORMED BY: CB [facility] Ipafeo9512 [address] [facility] [place] [id number] Protein.monoclonal Elph mass conc Not Observed Normal [facility] Work Phone: Comment on above: PATIENT NOT FASTINGP ERFORMED BY: CB [facility] Lxtpci6083 [address] [facility] [place] [id number] SED RATE ERYTHROCYTE ([id number]) Ordered By: Interactive Web Developer on 09-27-2012 ESR Velocity (Bld) 22 mm/h Normal 0-40 Compre hensive Internal Medicine Work Phone: Comment on above: PATIENT NOT FASTINGP ERFORMED BY: [facility] Tnlvum6064 [address] [facility] [place] [id number] Calcium Serum (51938)Ordered By: Interactive Web Developer on 09-22-2012 Calcium mass conc 10.7 mg/dL Abnormal 8.6-10.2 Compreh ensive Internal Medicine Work Phone: Comment on above: PATIENT NOT FASTINGP ERFORMED BY: [facility] Gpyydo6347 [facility] [id number] Information: [id number] THYROIDOrdered By: System Jillian lara on 09-01-2012 [...] Rice M.D.September 01, 2012 at 3:12:06 PM [id number] Signed KELLY/KELLY If you are the referring physician and would like to consult with theradiologist who provided this interpretation, please contact Jermaine Mortensen. at . If this radiologist is unavailable,youwill be directed to another radiologist to assist. If you are a patient with a question regarding this report, pleasecontactyour referring physician directly. Professional Interpretation Provided By: [employer], Phone , These documents contain legally protected [...] Sign by: Michael Rice MD LIPID PANEL ([id number])Ordered B y: Interactive Web Developer on 08-26-2012 Cholesterol in HDL mass conc 63 mg/dL Normal [facility] Work Phone: Comment on above: According to ATP-III Guidelines, HDL-C >59 mg/dL is considered anegative risk factor for CHD. PATIENT WAS FASTINGP ERFORMED BY: Semant.[email or web address] [facility] VenturesAt[facility] [id number] Cholesterol in LDL mass conc 156 mg/dL Abnormal 0-99 [facility] Work Phone: Comment on above: PATIENT WAS FASTINGP ERFORMED BY: LIBCAST70 [place] [id number] Cholesterol in LDL/Cholesterol in HDL mass ratio 2.5 {ratio_units} Normal 0.0-3.2 [facility] Work Phone: Comment on above: PATIENT WAS FASTINGP ERFORMED BY: LIBCAST70 DataW[employer] VenturesAt[facility] [id number] Cholesterol in VLDL mass conc 28 mg/dL Normal 5-40 [facility] Work Phone: Comment on above: PATIENT WAS FASTINGP ERFORMED BY: MONICA Sue Juan6370 [facility] [id number] Cholesterol mass conc 247 mg/dL Abnormal 100-199 [facility] Work Phone: Comment on above: PATIENT WAS FASTINGP ERFORMED BY: MONICA LabAna Ayksfw1774 [facility] [id number] Triglyceride mass conc 142 mg/dL Normal 0-149 [facility] Work Phone: Comment on above: PATIENT WAS FASTINGP ERFORMED BY: MONICA Sheri Smsyds9901 [facility] [id number] METABOLIC PANEL, COMPREHENSI VE ([id number])Ordered By: Interactive Web Developer on 08-26-2012 Albumin mass conc 4.6 g/dL Normal 3.6-4.8 Compreh ensive Internal Medicine Work Phone: Comment on above: PATIENT WAS FASTINGP ERFORMED BY: MONICA [facility]6370 [facility] [id number] Information: [id number] Albumin/Globulin mass ratio 1.8 {ratio} Normal 1.1-2.5 [facility] Work Phone: Comment on above: PATIENT WAS FASTINGP ERFORMED BY: MONICA [facility]6370 [facility] [id number] Information: [id number] ALP [Catalytic activity/Vol] 105 U/L Normal 25-165 [facility] Work Phone: ALP enzyme act/vol 105 [iU]/L Normal 25-165 Compre [facility] Internal Medicine Work Phone: Comment on above: PATIENT WAS FASTINGP ERFORMED BY: MONICA [facility] Dmdlow7099 [facility] [id number] Information: [id number] ALT [Catalytic activity/Vol] 20 U/L Normal 0-32 [facility] Work Phone: ALT enzyme act/vol 20 [iU]/L Normal 0-32 [facility] Internal Medicine Work Phone: Comment on above: Please note refere nce interval change PATIENT WAS FASTINGP ERFORMED BY: MONICA [facility] Zylxhz7174 [address]ini RoadDublin [place] [id number] Information: [id number] AST [Catalytic activity/Vol] 20 U/L Normal 0-[address] [facility] Internal Medicine Work Phone: AST enzyme act/vol 20 [iU]/L Normal 0-40 [facility] Internal Medicine Work Phone: Comment on above: PATIENT WAS FASTINGP ERFORMED BY: CB [facility] Wgbexl6512 Mancini Roadblin [place] [id number] Information: [id number] Bilirubin mass conc 0.5 mg/dL Normal 0.0-1.2 [facility] Internal Medicine Work Phone: Comment on above: PATIENT WAS FASTINGP ERFORMED BY: CB [facility] Xlbokb1753 M[address]ini Roadblin [place] [id number] Information: [id number] Calcium mass conc 10.6 mg/dL Abnormal 8.6-10.2 Compreh [facility] Internal [facility] Work Phone: Comment on above: PATIENT WAS FASTINGP ERFORMED BY: CB [facility] Nlehxg7819 [address] RoadCritical Access Hospitalin [place] [id number] Information: [id number] Chloride molar conc 104 mmol/L Normal 97-108 Compr [facility] Internal Medicine Work Phone: Comment on above: PATIENT WAS FASTINGP ERFORMED BY: CB [facility] Tvwvhf1004 M[address]ini RoadDublin [place] [id number] Information: [id number] CO2 molar conc 22 mmol/L Normal 20-32 [facility] Internal Medicine Work Phone: Comment on above: PATIENT WAS FASTINGP ERFORMED BY: CB [facility] Zqbluv2347 [address]ini RoadDublin [place] [id number] Information: [id number],[id number] Creatinine mass conc 0.86 mg/dL Normal 0.57-1.00 Comp rehensive Internal Medicine Work Phone: Comment on above: PATIENT WAS FASTINGP ERFORMED BY: MONICA [facility] Wrpvwt9980 [facility] [id number] Information: [id number] GFR/1.73 sq M predicted among blacks CKD-EPI vol rate/area (S/P/Bld) 84 mL/min/1.73 Normal Comprehensiv e Internal Medicine Work Phone: Comment on above: PATIENT WAS FASTINGP ERFORMED BY: LabV[facility]6370 [facility] [id number] Information: [id number],[id number] GFR/1.73 sq M predicted among non-blacks CKD-EPI vol rate/area (S/P/Bld) 73 mL/min/1.73 Normal [facility] Work Phone: Comment on above: PATIENT WAS FASTINGP ERFORMED BY: LabV[facility]6370 [facility] [id number] Information: [id number] Globulin mass conc (S) 2.6 g/dL Normal 1.5-4.5 [facility] Work Phone: Comment on above: PATIENT WAS FASTINGP ERFORMED BY: [facility]Re[facility] Bliyyj4808 [facility] [id number] Information: [id number] Glucose mass conc 77 mg/dL Normal 65-99 Compreh ensive Internal Medicine Work Phone: Comment on above: PATIENT WAS FASTINGP ERFORMED BY: [facility] Zgieug8524 [facility] [id number] Information: 156308,[id number] Potassium molar conc 4.6 mmol/L Normal 3.5-5.2 Comp rehensive Internal Medicine Work Phone: Comment on above: PATIENT WAS FASTINGP ERFORMED BY: [facility] Zfiutb0121 [facility] [id number] Information: [id number] Protein mass conc 7.2 g/dL Normal 6.0-8.5 Compreh ensive Internal Medicine Work Phone: Comment on above: PATIENT WAS FASTINGP ERFORMED BY: CB [facility] Kvczgj9294 [address]ini RoadDublin [place] [id number] Information: [id number] Sodium molar conc 140 mmol/L Normal 134-144 Compreh ensive Internal Medicine Work Phone: Comment on above: PATIENT WAS FASTINGP ERFORMED BY: CB [facility] Upzzfm7117 [address] RoadDublin [place] [id number] Information: [id number] Urea nitrogen mass conc 15 mg/dL Normal 8- [facility] Work Phone: Comment on above: PATIENT WAS FASTINGP ERFORMED BY: CB [facility] Djshjg8171 [address] RoadDublin [place] [id number] Information: [id number],[id number] Urea nitrogen/Creatinine mass ratio 17 mg/mg Normal 11- [facility] Work Phone: Comment on above: PATIENT WAS FASTINGP ERFORMED BY: CB [facility] Ddatfz0700 [address] RoadDublin [place] [id number] Information: [id number] TSH (70449)Ordered By: Syste m French Teacher on 08-26-2012 Thyrotropin Qn 1.370 {uIU/mL} Normal 0.450-4.500 Compr ehensive Internal Medicine Work Phone: Comment on above: PATIENT WAS FASTINGP ERFORMED BY: CB [facility] Tdfktf1850 [address] RoadDublin [place] [id number] Vitamin D Hydroxy (98788)Ord ered By: Interactive Web Developer on 08-26-2012 25-Hydroxyvitamin D2+25-Hydroxyvitamin D3 mass conc 40.2 ng/mL Normal 30.0-100.0 [facility] Work Phone: Comment on above: Vitamin D deficiency has been defined by the [place] ofMedicine and an Endocrine Society practice guideline as alevel of serum 25-OH vitamin D less than 20 ng/mL (1,2).The Endocrine Society went on to further define vitamin Dinsufficiency as a level between 21 and 29 ng/mL (2).1. IOM ([place] of Medicine). 2010. Dietary reference intakes for calcium and D. [place]: The National Academies Press.2. Hernesto MF, Carolyn [place], Christoph RODRIGUEZ, et al. Evaluation, treatment, and prevention of vitamin D deficiency: an Endocrine Society clinical practice guideline. JCEM. 2010; 96(7):1911-30. PATIENT WAS FASTINGP ERFORMED BY: [facility] Umqxtd6337 [facility] [id number] CMPOrdered By: System Manage r on 01-19-2012 Albumin mass conc 3.8 g/dL Normal 3.4-5.0 [facility] Internal Medicine Work Phone: Albumin/Globulin mass ratio 1.0 {RATIO} Normal 0.9-2.[address] [facility] Internal Medicine Work Phone: ALP enzyme act/vol 110 U/L Normal 50-136 [facility] Internal Medicine Work Phone: ALT enzyme act/vol 28 U/L Normal 12-78 [facility] Internal Medicine Work Phone: Anion gap molar conc 6 mmol/L Normal 5-15 [facility] Internal Medicine Work Phone: AST enzyme act/vol 8 U/L Abnormal 15-37 [facility] Internal Medicine Work Phone: Bilirubin mass conc 0.40 mg/dL Normal 0.00-1.00 Compr [facility] Internal Medicine Work Phone: Calcium mass conc 9.3 mg/dL Normal 8.5-10.1 Compreh [facility] Internal Medicine Work Phone: Chloride molar conc 106 mmol/L Normal 98-107 [facility] Internal Medicine Work Phone: CO2 molar conc 27.0 mmol/L Normal 21.0-32.0 [facility] Work Phone: Creatinine mass conc [...] [facility] Work Phone: LIPIDOrdered By: System China brown on 01-19-2012 Cholesterol in HDL mass [...] D deficiency has been defined by the [place] ofMedicine and an Endocrine Society practice guideline as alevel of serum 25-OH vitamin D less than 20 ng/mL (1,2).The Endocrine Society went on to further define vitamin Dinsufficiency as a level between 21 and 29 ng/mL (2).1. IOM ([place] of Medicine). 2010. Dietary reference intakes for calcium and D. [place]: The National AcademAdHack Press.2. Hernesto MF, Carolyn NC, Christoph RODRIGUEZ, et al. Evaluation, treatment, and prevention of vitamin D deficiency: an Endocrine Society clinical practice guideline. JCEM. 2010; 96(7):1911-30.Performed at: [address] Director: Jenni Grimes MD, Phone: [phone] BILAT SCRN DIGITAL & CADOrde red By: Interactive Web Developer on 09-25-2011 BILAT SCRN DIGITAL & CAD [...] radiologist regarding this report, please call our [id number] line @ Dictated on 09/25/11 1656 by Ran Johnson MDranscribed on 09/26/11 1144 by ITS IMPORTSign by Jorge Johnson MD on 09/26/11 1145 Sign by: Jorge Johnson MD DEXA BONE DENSITY STUDY (HP) Ordered By: Interactive Web Developer on 07-17-2011 DEXA BONE DENSITY STUDY (HP) [...] Foundation [email or web address] Dictated on 07/17/11 1053 by Brandi RICH,Aideescribed on 07/17/11 1229 by ITS IMPORTSign by Jorge Johnson MD on 07/17/11 1229 Sign by: Jorge Johnson MD CAOrdered By: Interactive Web Developer on 07-12-2011 Calcium mass conc 9.9 mg/dL [...] ensive Internal Medicine Work Phone: VIT D,25 [id number] By: Phani stem French Teacher on 07-12-2011 VIT D,25 09989 31.9 ng/mL Abnormal 32.0-100.0 Comprehens lucio Internal Medicine Work Phone: Comment on above: Effective [place]bey [place] 2010 Vitamin D, 25-Hydroxy reference intervals will be changing to 30-100. .Recent studies consider the lower limit of 32.0 ng/mL to be athreshold for optimal health.Aries BW. J Nutr. 2004;135(2):317-22.Performed at: [facility] [employer] [id number] Director: Jenni Grimes MD, Phone: [phone] THYROIDOrdered By: Viktor lara on 04-24-2011 THYROID See Note Normal [...] that contains a stablecalcified nodule. Dictated on 04/24/11929 by DALILA ASHLEY DOTranscribed on 04/25/111115 by ITS IMPORTSign by DALILA ASHLEY DO on 04/25/111115 Sign by: DALILA ASHLEY DO CAOrdered By: Interactive Web Developer on 02-21-2011 Calcium mass conc 9.9 mg/dL Normal 8.5-10.1 Compreh ensive Internal Medicine Work Phone: VIT D,25 [id number] By: Sy stem French Teacher on 02-21-2011 VIT D,25 81485 22.5 ng/mL Abnormal 32.0-100.0 Comprehens ulcio Internal Medicine Work Phone: Comment on above: Recent studies consi cuong the lower limit of 32.0 ng/mL to avi threshold for optimal health.Aries ANDERSON. J Nutr. 2004;135(2):317-22.Performed at: [facility] [id number] Director: Jenni Grimes MD, Phone: [phone] COMP METABOLICOrdered By: Sy stem French Teacher on 08-29-2010 Albumin mass conc 4.1 g/dL Normal 3.4-5.0 Compreh ensive Internal Medicine Work Phone: Albumin/Globulin mass ratio 1.1 {RATIO} Normal 0.9-2.4 [facility] Work Phone: ALP enzyme act/vol 91 U/L Normal 50-136 Compre [facility] Internal Medicine Work Phone: ALT enzyme act/vol 29 U/L Normal 12-78 Compre [facility] Work Phone: Anion gap molar conc 6 mmol/L Normal 5-15 Comp rehensive Internal Medicine Work Phone: AST enzyme act/vol 17 U/L Normal 15-37 Compre [facility] Internal Medicine Work Phone: Bilirubin mass conc 0.60 mg/dL Normal 0.00-1.00 Compr ensive Internal Medicine [...] Urea nitrogen mass conc 19 mg/dL Abnormal 7-18 [facility] Work Phone: Urea [...] > or = 500 mg/dL PTH,IntactOrdered By: Interactive Web Developer on 08-29-2010 PTH,Intact 63 pg/mL Normal 14-72 [facility] Work Phone: TSHOrdered By: System Manage r on 08-29-2010 Thyrotropin Qn 0.87 {uIU/mL} Normal 0.358-3.74 Compreh ensive Internal Medicine Work Phone: BILAT SCRN DIGITAL & CADOrde red By: Interactive Web Developer on 07-18-2010 BILAT SCRN DIGITAL & CAD See Note Normal [facility] Work Phone: Comment on above: Exam Number: [id number] AMMOGRAPHY - BILATERAL SCREENING INDICATION:Routine annual [...] attaching a ResultCode to this exam. ADDENDUM: [id number] HPBI/MDS Reported By: MARTITA VELÁZQUEZ M.D. LIPID PANEL ([id number])Ordered B y: Interactive Web Developer on 06-07-2010 Cholesterol in HDL mass conc 52 mg/dL Normal [facility] Work Phone: Comment on above: According to ATP-III Guidelines, HDL-C >59 mg/dL is considered anegative risk factor for CHD. PATIENT WAS FASTINGP ERFORMED BY: MONICA [facility] Chnsaz3471 [address]ini RoadDublin [place] [id number] Cholesterol in LDL mass conc 167 mg/dL Abnormal 0-99 [facility] Work Phone: Comment on above: PATIENT WAS FASTINGP ERFORMED BY: CB [facility] Gytyig1646 [address] RoadDublin [place] [id number] Cholesterol in LDL/Cholesterol in HDL mass ratio 3.2 {ratio_units} Normal 0.0-3.2 [facility] Work Phone: Comment on above: PATIENT WAS FASTINGP ERFORMED BY: MONICA [facility] Lmvfri5442 [address] RoadDublin [place] [id number] Cholesterol in VLDL mass conc 44 mg/dL Abnormal 5-40 [facility] Work Phone: Comment on above: PATIENT WAS FASTINGP ERFORMED BY: MONICA [facility] Ohvdqm8181 [address] RoadDublin [place] [id number] Cholesterol mass conc 263 mg/dL Abnormal 100-199 [facility] Work Phone: Comment on above: PATIENT WAS FASTINGP ERFORMED BY: MONICA [facility] Bwjkax3950 [address] RoadDublin [place] [id number] Triglyceride mass conc 219 mg/dL Abnormal 0-149 [facility] Work Phone: Comment on above: PATIENT WAS FASTINGP ERFORMED BY: CB [facility] Jwpzrk3086 [address] RoadDublin [place] [id number] METABOLIC PANEL, COMPREHENSI VE (10550)Ordered By: Interactive Web Developer on 06-07-2010 Albumin mass conc 4.6 g/dL Normal 3.6-4.8 Compreh ensive Internal Medicine Work Phone: Comment on above: PATIENT WAS FASTINGP ERFORMED BY: CB [facility] Rchhcr4256 [address] RoadDublin [place] [id number] Information: [id number] Albumin/Globulin mass ratio 1.8 {ratio} Normal 1.1-2.[address] [facility] Internal Medicine Work Phone: Comment on above: PATIENT WAS FASTINGP ERFORMED BY: [facility]6370 [facility] [id number] Information: [id number] ALP [Catalytic activity/Vol] 101 U/L Normal 25-165 [facility] Work Phone: ALP enzyme act/vol 101 [iU]/L Normal 25-165 [facility] Internal Medicine Work Phone: Comment on above: PATIENT WAS FASTINGP ERFORMED BY: [place] 3762470 [facility] [id number] Information: [id number] ALT [Catalytic activity/Vol] 26 U/L Normal 0-[address] [facility] Internal Medicine Work Phone: ALT enzyme act/vol 26 [iU]/L Normal 0-40 [facility] Internal Medicine Work Phone: Comment on above: PATIENT WAS FASTINGP ERFORMED BY: [place] 3762470 [facility] [id number] Information: [id number] AST [Catalytic activity/Vol] 19 U/L Normal 0-[address] [facility] Internal Medicine Work Phone: AST enzyme act/vol 19 [iU]/L Normal 0-40 [facility] Internal Medicine Work Phone: Comment on above: PATIENT WAS FASTINGP ERFORMED BY: [place] 3762470 [facility] [id number] Information: 082996,[id number] Bilirubin mass conc 0.4 mg/dL Normal 0.0-1.2 [facility] Internal Medicine Work Phone: Comment on above: PATIENT WAS FASTINGP ERFORMED BY: [place] 3762470 [facility] [id number] Information: 148365,[id number] Calcium mass conc 10.4 mg/dL Abnormal 8.6-10.2 Compreh ensive Internal Medicine Work Phone: Comment on above: PATIENT WAS FASTINGP ERFORMED BY: MONICA [facility] Agkfdu5090 [address] [facility] [id number] Information: [id number] Chloride molar conc 103 mmol/L Normal 97-108 Compr ehensive Internal Medicine Work Phone: Comment on above: PATIENT WAS FASTINGP ERFORMED BY: CB [facility] Neswcp1053 [facility] [id number] Information: 840050,[id number] CO2 molar conc 26 mmol/L Normal 20-32 Comprehens [facility] Internal Medicine Work Phone: Comment on above: PATIENT WAS FASTINGP ERFORMED BY: [facility] Cxnpij1589 [facility] [id number] Information: 737120,[id number] Creatinine mass conc 0.75 mg/dL Normal 0.57-1.00 Comp [facility] Work Phone: Comment on above: PATIENT WAS FASTINGP ERFORMED BY: [facility] Vkzfyr8034 [facility] [id number] Information: 191170,[id number] GFR/1.73 sq M predicted among blacks MDRD [...] found [email or web address]. PATIENT WAS FASTINGP ERFORMED BY: CB [facility] Rjyspx9368 [facility] [id number] Information: 335113,Q66661 GFR/1.73 sq M.predicted MDRD (S/P/Bld) [Vol rate/Area] mL/min/{1.73_m2} Normal [facility] Work Phone: Comment on above: PATIENT WAS FASTINGP ERFORMED BY: MONICA [facility]Re[facility] Objyuc5434 [facility] [id number] Information: 465213,S85575 GFR/1.73 sq M.predicted MDRD vol rate/area mL/min/{1.73_m2} Normal [facility] Work Phone: Comment on above: PATIENT WAS FASTINGP ERFORMED BY: [place] 3762470 [facility] [id number] Information: 242901,[id number] Globulin mass conc (S) 2.6 g/dL Normal 1.5-4.5 [facility] Work Phone: Comment on above: PATIENT WAS FASTINGP ERFORMED BY: [address] [id number] Information: 204394,[id number] Glucose mass conc 94 mg/dL Normal 65-99 Compreh ensive Internal Medicine Work Phone: Comment on above: PATIENT WAS FASTINGP ERFORMED BY: [place] 3762470 [facility] [id number] Information: 782001,Q46513 Potassium molar conc 4.5 mmol/L Normal 3.5-5.2 Comp rehensive Internal Medicine Work Phone: Comment on above: PATIENT WAS FASTINGP ERFORMED BY: [place] 3762470 [facility] [id number] Information: [id number],P62195 Protein mass conc 7.2 g/dL Normal 6.0-8.5 Compreh ensive Internal Medicine Work Phone: Comment on above: PATIENT WAS FASTINGP ERFORMED BY: [place] 3762470 [facility] [id number] Information: 595475,[id number] Sodium molar conc 141 mmol/L Normal 135-145 Compreh ensive Internal Medicine Work Phone: Comment on above: PATIENT WAS FASTINGP ERFORMED BY: MONICA [facility]Re[facility] Wbtpxv9564 [facility] [id number] Information: [id number],G43287 Urea nitrogen mass conc 13 mg/dL Normal 5- [facility] Work Phone: Comment on above: PATIENT WAS FASTINGP ERFORMED BY: MONICA [facility] Lbsgaf5033 [facility] [id number] Information: 775213,L56103 Urea nitrogen/Creatinine mass ratio 17 mg/mg Normal 8- [facility] Work Phone: Comment on above: PATIENT WAS FASTINGP ERFORMED BY: MONICA LabRe[facility] Nuquuh0578 [facility] [id number] Information: [id number] TSH (78776)Ordered By: Syste m French Teacher on 06-07-2010 Thyrotropin Qn 0.144 {uIU/mL} Abnormal 0.450-4.500 Compr [facility] Internal Medicine Work Phone: Comment on above: PATIENT WAS FASTINGP ERFORMED BY: [facility]6370 [facility] [id number] MYOCARD PERF STRESS/REST MUL TOrdered By: Interactive Web Developer on 05-01-2010 MYOCARD PERF STRESS/REST MULT See Note Normal [facility] Work Phone: Comment on above: Exam Number: [id number] MYOCARDIAL PERFUSION SCAN 3.3 mCi of [...] perfusion scan.2. Preserved ejection fraction. Reported By: AURELIO BERTRAND M.D. THYROID ()Ordered By: Syst em French Teacher on 04-17-2010 THYROID () See Note Normal Comprehensiv e [facility] Medicine Work Phone: Comment on above: Exam Number: [id number] CLINICAL:This is a 60-year-old female patient [...] By: JORGE JOHNSON CBC WITH MANUAL DIFF ([id number]) Ordered By: Interactive Web Developer on 04-16-2010 Basophils #/vol (Bld) 0.0 {x10E3/uL} Normal 0.0-0.2 [facility] Work Phone: Comment on above: PATIENT WAS FASTINGP ERFORMED BY: knowNormal [facility] [id number] Information: [id number] Basophils (Bld) [#/Vol] 0.0 10*3/uL Normal 0.0-0.2 [facility] Work Phone: Basophils/100 WBC (Bld) 1 % Normal 0-3 [facility] Work Phone: Comment on above: PATIENT WAS FASTINGP ERFORMED BY: TribeDublin [place] [id number] Information: [id number] Eosinophils #/vol (Bld) 0.2 {x10E3/uL} Normal 0.0-0.4 [facility] Work Phone: Comment on above: PATIENT WAS FASTINGP ERFORMED BY: [address] [id number] Information: [id number] Eosinophils (Bld) [#/Vol] 0.2 10*3/uL Normal 0.0-0.4 [facility] Work Phone: Eosinophils/100 WBC (Bld) 3 % Normal 0-7 [facility] Work Phone: Comment on above: PATIENT WAS FASTINGP ERFORMED BY: [address] [id number] Information: [id number] Erythrocyte distribution width Ratio (RBC) 13.3 % Normal 11.7-15.0 [facility] Work Phone: Comment on above: PATIENT WAS FASTINGP ERFORMED BY: [address] [id number] Information: [id number] Hematocrit Volume Fraction (Bld) 39.7 % Normal 34.0-44.0 [facility] Work Phone: Comment on above: PATIENT WAS FASTINGP ERFORMED BY: [address] [id number] Information: [id number] Hemoglobin mass conc (Bld) 14.3 g/dL Normal 11.5-15.0 [facility] Work Phone: Comment on above: PATIENT WAS FASTINGP ERFORMED BY: [place] 3762470 [facility] [id number] Information: [id number] Immature granulocytes #/vol (Bld) 0.0 {x10E3/uL} Normal 0.0-0.1 [facility] Work Phone: Comment on above: PATIENT WAS FASTINGP ERFORMED BY: MONICA [facility]6370 [facility] [id number] Information: [id number] Immature granulocytes (Bld) [#/Vol] 0.0 10*3/uL Normal 0.0-0.1 [facility] Work Phone: Immature granulocytes/100 WBC (Bld) 0 % Normal 0-1 [facility] Work Phone: Comment on above: PATIENT WAS FASTINGP ERFORMED BY: [place] 3762470 [facility] [id number] Information: [id number] Lymphocytes #/vol (Bld) 2.4 {x10E3/uL} Normal 0.7-4.5 [facility] Work Phone: Comment on above: PATIENT WAS FASTINGP ERFORMED BY: MONICA [place] 5428370 [facility] [id number] Information: [id number] Lymphocytes (Bld) [#/Vol] 2.4 10*3/uL Normal 0.7-4.5 [facility] Work Phone: Lymphocytes/100 WBC (Bld) 43 % Normal 14-46 [facility] Work Phone: Comment on above: PATIENT WAS FASTINGP ERFORMED BY: MONICA [facility]6370 [facility] [id number] Information: [id number] MCH Entitic mass (RBC) 31.6 pg Normal 27.0-34.0 [facility] Work Phone: Comment on above: PATIENT WAS FASTINGP ERFORMED BY: [facility]6370 [facility] [id number] Information: [id number] MCHC mass conc (RBC) 36.0 g/dL Normal 32.0-36.0 Comp [facility] Internal Medicine Work Phone: Comment on above: PATIENT WAS FASTINGP ERFORMED BY: [facility]6370 [facility] [id number] Information: [id number] MCV Entitic volume (RBC) 88 fL Normal 80-98 [facility] Work Phone: Comment on above: PATIENT WAS FASTINGP ERFORMED BY: [place] 3762470 [facility] [id number] Information: [id number] Monocytes #/vol (Bld) 0.3 {x10E3/uL} Normal 0.1-1.0 [facility] Work Phone: Comment on above: PATIENT WAS FASTINGP ERFORMED BY: MONICA [place] 5428370 [facility] [id number] Information: [id number] Monocytes (Bld) [#/Vol] 0.3 10*3/uL Normal 0.1-1.0 [facility] Work Phone: Monocytes/100 WBC (Bld) 5 % Normal 4-13 [facility] Work Phone: Comment on above: PATIENT WAS FASTINGP ERFORMED BY: [place] 3762470 [facility] [id number] Information: [id number] Neutrophils #/vol (Bld) 2.7 {x10E3/uL} Normal 1.8-7.8 [facility] Work Phone: Comment on above: PATIENT WAS FASTINGP ERFORMED BY: [place] 3762470 [facility] [id number] Information: [id number] Neutrophils (Bld) [#/Vol] 2.7 10*3/uL Normal 1.8-7.8 [facility] Work Phone: Neutrophils/100 WBC (Bld) 48 % Normal 40-74 [facility] Work Phone: Comment on above: PATIENT WAS FASTINGP ERFORMED BY: [place] 3762470 [facility] [id number] Information: [id number] Platelets #/vol (Bld) 239 {x10E3/uL} Normal 140-415 [facility] Work Phone: Comment on above: PATIENT WAS FASTINGP ERFORMED BY: [place] 3762470 [facility] [id number] Information: [id number] Platelets (Bld) [#/Vol] 239 10*3/uL Normal 140-415 [facility] Work Phone: RBC #/vol (Bld) 4.53 {x10E6/uL} Normal 3.80-5.10 Comp [facility] Internal Medicine Work Phone: Comment on above: PATIENT WAS FASTINGP ERFORMED BY: [place] 3762470 [facility] [id number] Information: [id number] RBC (Bld) [#/Vol] 4.53 10*6/uL Normal 3.80-5.10 Compr [facility] Internal Medicine Work Phone: WBC #/vol (Bld) 5.6 {x10E3/uL} Normal 4.0-10.5 [facility] Internal Medicine Work Phone: Comment on above: PATIENT WAS FASTINGP ERFORMED BY: [place] 3762470 [facility] [id number] Information: [id number] WBC (Bld) [#/Vol] 5.6 10*3/uL Normal 4.0-10.5 [facility] Work Phone: LIPID PANEL ([id number])Ordered B y: Interactive Web Developer on 04-16-2010 Cholesterol in HDL mass conc 59 mg/dL Normal [facility] Internal Medicine Work Phone: Comment on above: According to ATP-III Guidelines, HDL-C >59 mg/dL is considered anegative risk factor for CHD. PATIENT WAS FASTINGP ERFORMED BY: [place] 3762470 [facility] [id number] Cholesterol in LDL mass conc 182 mg/dL Abnormal 0-99 [facility] Work Phone: Comment on above: PATIENT WAS FASTINGP ERFORMED BY: MONICA Sue Juan6370 [facility] [id number] Cholesterol in LDL/Cholesterol in HDL mass ratio 3.1 {ratio_units} Normal 0.0-3.2 [facility] Work Phone: Comment on above: PATIENT WAS FASTINGP ERFORMED BY: MONICA Sue Fwilgj6768 [facility] [id number] Cholesterol in VLDL mass conc 30 mg/dL Normal 5-40 [facility] Work Phone: Comment on above: PATIENT WAS FASTINGP ERFORMED BY: MONICA Sherilisa TateRmnwhx1421 [facility] [id number] Cholesterol mass conc 271 mg/dL Abnormal 100-199 [facility] Work Phone: Comment on above: PATIENT WAS FASTINGP ERFORMED BY: MONICA RoseAnalisa TateQpsdfq6988 [facility] [id number] Triglyceride mass conc 149 mg/dL Normal 0-149 [facility] Work Phone: Comment on above: PATIENT WAS FASTINGP ERFORMED BY: MONICA Tatelin6370 [facility] [id number] METABOLIC PANEL, COMPREHENSI VE (92374)Ordered By: Interactive Web Developer on 04-16-2010 Albumin mass conc 4.6 g/dL Normal 3.6-4.8 Compreh ensive Internal Medicine Work Phone: Comment on above: PATIENT WAS FASTINGP ERFORMED BY: MONICA Sherilisa Npkkcl1318 [facility] [id number] Albumin/Globulin mass ratio 1.6 {ratio} Normal 1.1-2.5 [facility] Work Phone: Comment on above: PATIENT WAS FASTINGP ERFORMED BY: MONICA Sherilisa Gxgdok0699 [facility] [id number] ALP [Catalytic activity/Vol] 105 U/L Normal 25-165 [facility] Work Phone: ALP enzyme act/vol 105 [iU]/L Normal 25-165 [facility] Internal Medicine Work Phone: Comment on above: PATIENT WAS FASTINGP ERFORMED BY: MONICA [facility] Vpeeft7429 [address] RoadDublin [place] [id number] ALT [Catalytic activity/Vol] 21 U/L Normal 0-40 [facility] Work Phone: ALT enzyme act/vol 21 [iU]/L Normal 0-40 [facility] Internal Medicine Work Phone: Comment on above: PATIENT WAS FASTINGP ERFORMED BY: MONICA [facility] Bnkpji6323 [address]ini RoadDublin [place] [id number] AST [Catalytic activity/Vol] 20 U/L Normal 0-[address] [facility] Internal Medicine Work Phone: AST enzyme act/vol 20 [iU]/L Normal 0-40 [facility] Internal Medicine Work Phone: Comment on above: PATIENT WAS FASTINGP ERFORMED BY: MONICA [facility] Nawhrr4[address] RoadCritical Access Hospitalin [place] [id number] Bilirubin mass conc 0.4 mg/dL Normal 0.0-1.2 [facility] Internal Medicine Work Phone: Comment on above: PATIENT WAS FASTINGP ERFORMED BY: MONICA LabColisa TateZwdrpw9829 Mancini RoadDublin [place] [id number] Calcium mass conc 10.5 mg/dL Abnormal 8.6-10.2 Compreh ensive Internal Medicine Work Phone: Comment on above: PATIENT WAS FASTINGP ERFORMED BY: MONICA [facility] Kjaslo0236 [address] RoadCritical Access Hospitalin [place] [id number] Chloride molar conc 99 mmol/L Normal 97-108 Compr ensive Internal Medicine Work Phone: Comment on above: PATIENT WAS FASTINGP ERFORMED BY: MONICA [facility] Nytguo2124 [address] RoadDublin [place] [id number] CO2 molar conc 23 mmol/L Normal 20-32 Comprehens lucio Internal Medicine Work Phone: Comment on above: PATIENT WAS FASTINGP ERFORMED BY: MONICA [facility] Eudznx[address] [facility] [id number] Creatinine mass conc 0.81 mg/dL Normal 0.57-1.00 Comp rehensive Internal Medicine Work Phone: Comment on above: PATIENT WAS FASTINGP ERFORMED BY: MONICA [facility] Rrsgxx[address] [facility] [id number] GFR/1.73 sq M predicted among blacks MDRD vol rate/area (S/P/Bld) mL/min/{1.73_m2} Normal Comprehensi Internal Medicine Work Phone: Comment on above: Note: Persistent red uction for 3 months or more in an eGFR<60 mL/min/1.73 m2 defines CKD. Patients with eGFR values>/=60 mL/min/1.73 m2 may also have CKD if evidence of persistentproteinuria is present. Additional information may be found [email or web address]. PATIENT WAS FASTINGP ERFORMED BY: [facility] Txxjlb4928 [facility] [id number] GFR/1.73 sq M.predicted MDRD (S/P/Bld) [Vol rate/Area] mL/min/{1.73_m2} Normal [facility] Work Phone: Comment on above: PATIENT WAS FASTINGP ERFORMED BY: MONICA [facility] Wrjakx1441 [facility] [id number] GFR/1.73 sq M.predicted MDRD vol rate/area mL/min/{1.73_m2} Normal [facility] Work Phone: Comment on above: PATIENT WAS FASTINGP ERFORMED BY: [facility] Osjioq7751 [facility] [id number] Globulin mass conc (S) 2.8 g/dL Normal 1.5-4.5 [facility] Work Phone: Comment on above: PATIENT WAS FASTINGP ERFORMED BY: [facility] Uehvdq9093 [facility] [id number] Glucose mass conc 88 mg/dL Normal 65-99 Compreh ensive Internal Medicine Work Phone: Comment on above: PATIENT WAS FASTINGP ERFORMED BY: MONICA Tatelin[address] [facility] [id number] Potassium molar conc 3.7 mmol/L Normal 3.5-5.2 Comp rehensive Internal Medicine Work Phone: Comment on above: PATIENT WAS FASTINGP ERFORMED BY: MONICA Juan[address] [facility] [id number] Protein mass conc 7.4 g/dL Normal 6.0-8.5 Compreh ensive Internal Medicine Work Phone: Comment on above: PATIENT WAS FASTINGP ERFORMED BY: MONICA Tatelin6370 [facility] [id number] Sodium molar conc 138 mmol/L Normal 135-145 Compreh ensive Internal Medicine Work Phone: Comment on above: PATIENT WAS FASTINGP ERFORMED BY: MONICA Juan6370 [facility] [id number] Urea nitrogen mass conc 13 mg/dL Normal 5-26 [facility] Work Phone: Comment on above: PATIENT WAS FASTINGP ERFORMED BY: MONICA Juan6370 [facility] [id number] Urea nitrogen/Creatinine mass ratio 16 mg/mg Normal 8-27 [facility] Work Phone: Comment on above: PATIENT WAS FASTINGP ERFORMED BY: MONICA Juan6370 [facility] [id number] Microscopic ExaminationOrder ed By: Interactive Web Developer on 04-16-2010 Bacteria LM.HPF #/area (Urine sed) Few Normal [facility] Work Phone: Comment on above: PATIENT WAS FASTINGP ERFORMED BY: MONICA Tatelin6370 [facility] [id number] Epithelial cells LM.HPF #/area (Urine sed) 0-10 Normal 0 - 10 [facility] Work Phone: Comment on above: PATIENT WAS FASTINGP ERFORMED BY: MONICA Tatelin6370 [facility] [place] [id number] Mucus Ql (Urine sed) Present Normal Comp rehensive Internal Medicine Work Phone: Comment on above: PATIENT WAS FASTINGP ERFORMED BY: MONICA [facility]6370 [facility] [id number] RBC LM.HPF #/area (Urine sed) 0-3 Normal 0 - 3 [facility] Work Phone: Comment on above: PATIENT WAS FASTINGP ERFORMED BY: [facility]6370 [facility] [id number] WBC LM.HPF #/area (Urine sed) 6-10 Abnormal 0 - 5 [facility] Work Phone: Comment on above: PATIENT WAS FASTINGP ERFORMED BY: [facility]6370 [facility] [id number] TSH ([id number])Ordered By: Syste m French Teacher on 04-16-2010 Thyrotropin Qn 6.920 {uIU/mL} Abnormal 0.450-4.500 Compr ehensive Internal Medicine Work Phone: Comment on above: PATIENT WAS FASTINGP ERFORMED BY: [facility]6370 [facility] [id number] URINALYSIS, W/ MICRO ([id number]) Ordered By: Interactive Web Developer on 04-16-2010 Appearance Nom (U) Clear Normal Compre hensive Internal Medicine Work Phone: Comment on above: PATIENT WAS FASTINGP ERFORMED BY: MONICA [facility]Re[facility] Noqbxg2932 [facility] [id number] Bilirubin Ql (U) Negative Normal Comprehe nsive Internal Medicine Work Phone: Comment on above: PATIENT WAS FASTINGP ERFORMED BY: [facility] [id number] Bilirubin Ql (U) Negative Normal Comprehe nsive Internal Medicine Work Phone: Color Nom (U) Yellow Normal Comprehensi ve Internal Medicine Work Phone: Comment on above: PATIENT WAS FASTINGP ERFORMED BY: MONICA LabSaint Joseph Hospital WestUrqgrf3120 [address] RoadDublin [place] [id number] Glucose Ql (U) Negative Normal Comprehens lucio Internal Medicine Work Phone: Comment on above: PATIENT WAS FASTINGP ERFORMED BY: MONICA Sheri Eysydt6656 [address] RoadDublin [place] [id number] Glucose Ql (U) Negative Normal Comprehens lucio Internal Medicine Work Phone: Hemoglobin Ql (U) Negative Normal Compreh ensive Internal Medicine Work Phone: Comment on above: PATIENT WAS FASTINGP ERFORMED BY: MONICA [facility]Re[facility] Jlipyo7911 [address] RoadDublin [place] [id number] Hemoglobin Ql (U) Negative Normal Compreh ensive Internal Medicine Work Phone: Ketones Ql (U) Negative Normal Comprehens lucio Internal Medicine Work Phone: Comment on above: PATIENT WAS FASTINGP ERFORMED BY: MONICA [facility]Re[facility] Xsofbz6720 [address] RoadDublin [place] [id number] Ketones Ql (U) Negative Normal Comprehens lucio Internal Medicine Work Phone: Leukocyte esterase Test strip Ql (U) 2+ Abnormal [facility] Work Phone: Comment on above: PATIENT WAS FASTINGP ERFORMED BY: MONICA Tatelin6[address] RoadDublin [place] [id number] Microscopic observation LM Nom (Urine sed) See below: Normal [facility] Work Phone: Comment on above: PATIENT WAS FASTINGP ERFORMED BY: MONICA LabReyn[facility] Ipuedy20[address] RoadDublin [place] [id number] Nitrite Ql (U) Negative Normal Comprehens lucio Internal Medicine Work Phone: Comment on above: PATIENT WAS FASTINGP ERFORMED BY: MONICA LabAna Rekvym0839 [address] RoadDublin [place] [id number] Nitrite Ql (U) Negative Normal Comprehens lucio Internal Medicine Work Phone: pH (U) 6.5 [pH] Normal 5.0-7.5 [facility] Work Phone: Comment on above: PATIENT WAS FASTINGP ERFORMED BY: CB [facility] Qeoypr4064 [address] RoadDublin [place] [id number] Protein Ql (U) Negative Normal Comprehens lucio Internal Medicine Work Phone: Comment on above: PATIENT WAS FASTINGP ERFORMED BY: CB [facility] Gamqti5389 [address] RoadDublin [place] [id number] Protein Ql (U) Negative Normal Comprehens lucio Internal Medicine Work Phone: Specific gravity Relative Density (U) 1.015 1 Normal 1.005-1.030 Comprehensi ve Internal Medicine Work Phone: Comment on above: PATIENT WAS FASTINGP ERFORMED BY: CB [facility] Klinjl4198 [address] RoadDublin [place] [id number] Urobilinogen (U) [Mass/Vol] 0.2 mg/dL Normal 0.0-1.9 [facility] Work Phone: Urobilinogen Test strip mass conc (U) 0.2 mg/dL Normal 0.0-1.9 Comprehensiv e Internal Medicine Work Phone: Comment on above: PATIENT WAS FASTINGP ERFORMED BY: CB [facility] Pegyvc5737 [address] RoadDublin [place] [id number] VITAMIN B-12 (CYANOCOBALAMIN ) ([id number])Ordered By: Interactive Web Developer on 04-16-2010 Cobalamin (Vitamin B12) mass conc 500 pg/mL Normal 211-946 [facility] Work Phone: Comment on above: PATIENT WAS FASTINGP ERFORMED BY: CB [facility] Mfketq7435 [address] RoadDublin [place] [id number] Vitamin D Hydroxy (83253)Ord ered By: Interactive Web Developer on 04-16-2010 Calcitriol mass conc 29.3 ng/mL Abnormal 32.0-100.0 Comp rehensive Internal Medicine Work Phone: Comment on above: Recent studies consi cuong the lower limit of 32.0 ng/mL to be athreshold for optimal health.Aries ANDERSON. J Nutr. 2005 Nov;135(2):317-22. PATIENT WAS FASTINGP ERFORMED BY: [facility]6370 [facility] [id number] Urinalysis, Office (95546)Or dered By: MAKENZIE Webb on 01-16-2010 Bilirubin [...] [facility] Work Phone: Rapid Flu (66885 x 2)Ordered By: Danae Azevedo on 08-15-2009 FLUAV Ag IA Ql (Throat) Negative Normal [facility] Work Phone: FLUAV Ag IA Ql (Throat) Negative Normal [facility] Work Phone: BILAT SCRN DIGITAL & CADOrde red By: Interactive Web Developer on 07-04-2009 BILAT SCRN DIGITAL & CAD See Note Normal [facility] Work Phone: Comment on above: Exam Number: [id number] MAMMOGRAM, BILATERAL SCREENING DIGITAL AND CAD [...] mammograms werealso examined with computer-aided detection software (ImageSplother, Punchbowl.). Reported By: MARTITA VELÁZQUEZ M.D. Exam Number: [id number] BONE DENSITOMETRY HISTORYOsteopenia. TECHNIQUE Bone densitometry of the lumbar spine and both hips is now beingperformed. The best criteria for evaluation of osteoporosis is theT-value, which represents the comparison of the patient's bone mass phuc expected peak bone mass. For most patients, the mean T-value of P1zeqycrf L4 is used to evaluate the lumbar [...] Reported By: MARTITA VELÁZQUEZ M.D. AUDRA CULTURE-OTHER ([id number])Ord ered By: Nika Ricketts on 06-25-2009 Bacteria identified Respiratory culture Nom (Unsp spec) RRF Normal [facility] Work Phone: Comment on above: Routine respiratory shakira PATIENT NOT FASTINGC linical Information: SRC:THRT ADD [id number] PERFORMED BY: [facility]ateAt[facility] [id number] Bacteria identified Respiratory culture Nom (Unsp spec) Final report Normal [facility] Work Phone: Comment on above: PATIENT NOT FASTINGC linical Information: SRC:THRT ADD [id number] PERFORMED BY: SurikateAt[facility] Health [facility] [id number] Rapid Strep Test, Office (63 010)Ordered By: Cassandra Fast on 06-25-2009 S. pyogenes Ag EIA Ql (Throat) Negative Normal [facility] Work Phone: S. pyogenes Ag IA Ql (Unsp spec) Negative Normal [facility] Work Phone: URINE AUDRA CULTURE (EDIE COL COUNT) ([id number])Ordered By: Cassandra Fast on 04-25-2009 Bacteria identified Cx Nom (U) NG36 Normal [facility] Work Phone: Comment on above: No growth in 36 - 48 hours. PATIENT NOT FASTINGC linical Information: SRC:UR ADD [id number] PERFORMED BY: [facility]ateAt[facility] [id number] Bacteria identified Cx Nom (U) Final report Normal [facility] Work Phone: Comment on above: PATIENT NOT FASTINGC linical Information: SRC:UR ADD [id number] PERFORMED BY: MONICA [facility]CoJeff[facility])Qilpzm6789 [facility] [id number] Urinalysis, Office (19114)Or dered By: Danae Azevedo on 04-25-2009 Bilirubin [...] Work Phone: CBCD,SMEAR DIFFOrdered By: Jeb ystem French Teacher on 04-19-2009 Band form neutrophils/100 WBC (Bld) [...] Work Phone: Platelets #/vol (Bld) SeeNote Normal [facility] Work Phone: Comment on above: Result: ADEQUATE Platelets #/vol (Bld) 348 10*3/uL Normal 150-450 [facility] Work Phone: RBC #/vol (Bld) 4.40 {M/mm3} Normal 4.2-5.4 Compreh ensive Internal Medicine Work Phone: WBC #/vol (Bld) 5.7 10*3/uL Normal 4.4-11.0 Comprehe nsive Internal Medicine Work Phone: CBCD,SMEAR DIFF 51 % Normal 47-70 [facility]prehen [facility] Work Phone: CBCD,SMEAR DIFF 100 1 Normal Comprehen [facility] Internal Medicine Work Phone: COMP METABOLICOrdered By: Phani stem French Teacher on 04-19-2009 Albumin mass conc 3.9 g/dL Normal 3.4-5.0 Compreh ensive Internal Medicine Work Phone: Albumin/Globulin mass ratio 1.0 {RATIO} Normal 0.9-2.[address] [facility] Internal Medicine Work Phone: ALP enzyme act/vol 114 U/L Normal 50-136 [facility] Internal Medicine Work Phone: ALT enzyme act/vol 30 U/L Normal 30-65 [facility] Internal Medicine Work Phone: Anion gap molar conc 7 mmol/L Normal 5-15 [facility] Work [facility]: AST enzyme act/vol 9 U/L Abnormal 15-37 [facility] Internal Medicine Work Phone: Bilirubin mass conc 0.40 mg/dL Normal 0.00-1.00 [facility] Work Phone: Calcium mass conc 9.6 mg/dL Normal 8.5-10.1 [facility] Work Phone: Chloride molar conc 103 mmol/L Normal 98-107 Compr [facility] Internal Medicine Work Phone: CO2 molar conc 29.0 mmol/L Normal 21.0-32.0 [facility] Work Phone: Creatinine mass conc 0.7 mg/dL Normal 0.6-1.0 [facility] Internal Medicine Work Phone: GFR/1.73 sq M predicted among blacks MDRD vol rate/area (S/P/Bld) 110 mL/min/{1.73_m2} Normal Compreh ensive Internal Medicine Work Phone: GFR/1.73 sq M.predicted MDRD vol rate/area 91 mL/min/{1.73_m2} Normal Comprehensiv e Internal Medicine Work Phone: Globulin mass conc (S) 3.9 g/dL Normal 2.7-4.[address] [facility] Internal Medicine Work Phone: Glucose mass conc 92 mg/dL Normal 70-110 [facility] Work Phone: Potassium molar conc 4.5 mmol/L Normal 3.5-5.1 [facility]: Protein mass [...] or = 500 mg/dL ROUTINE UAOrdered By: Interactive Web Developer on 04-19-2009 Clarity Nom (U) CLEAR Normal [...] Work Phone: ROUTINE UA 1.015 1 Normal 1.002-1.030 [facility] Work Phone: ROUTINE UA 6.0 1 Normal 5.0-8.0 [facility] Work Phone: ROUTINE UA 3+ Abnormal [facility] Work Phone: TSHOrdered By: System Manage r on 04-19-2009 Thyrotropin Qn 5.84 {uIU/mL} Abnormal 0.358-3.74 Compreh ensive Internal Medicine Work Phone: VIT D,25 [id number] By: [employer] French Teacher on 04-19-2009 VIT D,25 [id number] 26.8 ng/mL Abnormal 32.0-100.0 Comprehens lucio Internal Medicine Work Phone: Comment on above: Recent studies consi cuong the lower limit of 32.0 ng/mL to avi threshold for optimal health.Aries ANDERSON. J Nutr. 2004;135(2):317-22.Performed At: [facility] [place], [place] [id number] Rapid Flu (17291 x 2)Ordered By: Darling Nur on 12-30-2007 FLUAV Ag IA Ql (Throat) Positive Normal [facility] Work Phone: Comment on above: pos FLUAV Ag IA Ql (Throat) Positive Normal [facility] Work Phone: COMP METABOLICOrdered By: [employer] French Teacher on 10-01-2007 Albumin mass conc 4.0 g/dL Normal 3.4-5.0 Compreh ensive Internal Medicine Work Phone: Albumin/Globulin mass ratio 1.1 {RATIO} Normal 0.9-2.4 [facility] Work Phone: ALP enzyme act/vol 91 U/L Normal 50-136 Compre [facility] Internal Medicine Work Phone: ALT enzyme act/vol 38 [iU]/L Normal 30-65 Compre [facility] Internal Medicine Work Phone: Anion gap molar conc 6 mmol/L Normal 5-15 Comp rehensive Internal Medicine Work Phone: AST enzyme act/vol 17 U/L Normal 15-37 Compre hensive Internal Medicine Work Phone: Bilirubin mass conc 0.34 mg/dL Normal 0.00-1.00 Compr ehensive Internal Medicine Work Phone: Calcium mass conc 9.7 mg/dL Normal 8.5-10.1 Compreh ensive Internal Medicine Work Phone: Chloride molar conc 103 mmol/L Normal 98-107 Compr ehensive Internal Medicine Work Phone: CO2 molar conc 30.3 mmol/L Normal 21.0-32.0 Comprehen sive Internal Medicine Work Phone: Comment on above: Please Note Refer ence Interval Change Creatinine mass conc 1.0 mg/dL Normal 0.6-1.0 Comp rehensive Internal Medicine Work Phone: Globulin mass conc (S) 3.5 g/dL Normal 2.7-4.2 [facility] Work Phone: Comment on above: Please Note Refer ence Interval Change Glucose mass conc 86 mg/dL Normal 70-110 Compreh ensive Internal Medicine Work Phone: Potassium molar conc 4.2 mmol/L Normal 3.5-5.1 [facility] Work Phone: Protein mass conc 7.5 g/dL Normal 6.4-8.2 Compreh ensive Internal Medicine Work Phone: Sodium molar conc 139 mmol/L Normal 136-145 Compreh ensive Internal Medicine Work Phone: Urea nitrogen mass conc 12 mg/dL Normal 7-18 [facility] Work Phone: Urea nitrogen/Creatinine mass ratio 12.0 {RATIO} Normal 10-20 [facility] Work Phone: D BILIOrdered By: System Man ager on 10-01-2007 Bilirubin.direct mass conc 0.06 mg/dL Normal 0.00-0.30 [facility] Work Phone: LIPIDOrdered By: System China brown on 10-01-2007 Cholesterol in HDL [...] > or = 500 mg/dL THYROIDOrdered By: Viktor lara on 07-19-2007 THYROID See Note Normal [facility] Work Phone: Comment on above: Exam Number: [id number] ULTRASOUND THYROID GLAND STATEMENTNontoxic multinodular goiter. [...] BILAT SCRN DIGITAL & CADOrde red By: Interactive Web Developer on 06-16-2007 BILAT SCRN DIGITAL & CAD See Note Normal [facility] Work Phone: Comment on above: Exam Number: [id number] MAMMOGRAM, BILATERAL SCREENING DIGITAL AND CAD [...] mammograms werealso examined with computer-aided detection software (ImageSplother, Punchbowl.). Reported By: MARTITA VELÁZQUEZ M.D. CBCOrdered By: System Manage r on 06-11-2007 Erythrocyte distribution width Ratio (RBC) 13.0 % Normal 11.6-14.[address] [facility] Internal Medicine Work Phone: Hematocrit Volume Fraction (Bld) 40.7 % Normal 37-47 [facility] Work Phone: Hemoglobin mass conc (Bld) 14.1 g/dL Normal 12.0-16.[address] [facility] Internal Medicine Work Phone: MCH Entitic mass (RBC) 31.7 pg Normal 27.0-32.0 [facility] Work Phone: MCHC mass conc (RBC) 34.7 g/dL Normal 32-36 Comp rehensive Internal Medicine Work Phone: MCV Entitic volume (RBC) 91.2 fL Normal 81-99 [facility] Work Phone: Platelets #/vol (Bld) 363 10*3/uL Normal 150-[address] [facility] Internal Medicine Work Phone: RBC #/vol (Bld) 4.46 {M/mm3} Normal 4.2-5.4 Compreh ensive Internal Medicine Work Phone: WBC #/vol (Bld) 4.4 10*3/uL Normal 4.4-11.0 Comprehe nsive Internal Medicine Work Phone: COMP METABOLICOrdered By: Phani stem French Teacher on 06-11-2007 Albumin mass conc 4.0 g/dL Normal 3.4-5.0 Compreh ensive Internal Medicine Work Phone: Albumin/Globulin mass ratio 1.1 {RATIO} Normal 0.9-2.[address] [facility] Internal Medicine Work Phone: ALP enzyme act/vol 84 U/L Normal 50-136 [facility] [employer] [facility] Internal Medicine Work Phone: ALT enzyme act/vol 33 [iU]/L Normal 30-65 [facility] [employer] [facility] Internal Medicine Work Phone: Anion gap molar conc 9 mmol/L Normal 5-15 Comp [facility] Internal Medicine Work Phone: AST enzyme act/vol 11 U/L Abnormal 15-37 Compre [facility] Internal Medicine Work Phone: Bilirubin mass conc 0.29 mg/dL Normal 0.00-1.00 Compr ensive Internal Medicine Work Phone: Calcium mass conc 9.4 mg/dL Normal 8.5-10.1 Compreh ensive Internal Medicine Work Phone: Chloride molar conc 106 mmol/L Normal 98-107 Compr [facility] Internal Medicine Work Phone: CO2 molar conc 27.4 mmol/L Normal 21.0-32.0 Comprehen [facility] Internal Medicine Work Phone: Comment on above: Please Note Refer ence Interval Change Creatinine mass conc 0.8 mg/dL Normal 0.6-1.0 [facility] Work Phone: Globulin mass conc (S) 3.5 g/dL Normal 2.7-4.[address] [facility] Internal Medicine Work Phone: [...] [facility] Work Phone: LIPIDOrdered By: [employer] on 06-11-2007 Cholesterol in HDL mass conc [...] > or = 500 mg/dL LIPIDOrdered By: [employer] on 12-09-2006 Cholesterol in HDL mass conc 59 mg/dL Normal [facility] Work Phone: Comment on above: Reference Range HDL <40 mg/dL Low HDL Cholesterol HDL >or= 60 mg/dL High HDL Cholesterol Cholesterol in LDL mass conc 186 mg/dL Abnormal 0-130 [facility] Work Phone: Cholesterol in VLDL mass conc 21 mg/dL Normal 5-40 [facility] Work Phone: Cholesterol mass conc 266 mg/dL Abnormal [facility] Work Phone: Comment on above: <200 mg/dL Desirable 200-240 mg/dL Borderline >240 mg/dL High Risk Triglyceride mass conc 107 mg/dL Normal [facility] Work Phone: Comment on above: Serum Triglycerides Reference Interval Normal <150 mg/dL Borderline high 150 - 199 mg/dL High 200 - 499 mg/dL Very High > or = 500 mg/dL LIVEROrdered By: Viktor brown on 12-09-2006 Albumin mass conc 4.2 g/dL Normal 3.4-5.0 Compreh [facility] Internal Medicine Work Phone: ALP enzyme act/vol 77 U/L Normal 50-136 [facility] Internal Medicine Work Phone: ALT enzyme act/vol 36 [iU]/L Normal 30-65 [facility] Internal Medicine Work Phone: AST enzyme act/vol 21 U/L Normal 15-37 [facility] Internal Medicine Work Phone: Bilirubin mass conc 0.52 mg/dL Normal 0.00-1.00 [facility] Internal Medicine Work Phone: Bilirubin.direct mass conc 0.08 mg/dL Normal 0.00-0.[address] [facility] Internal Medicine Work Phone: Protein mass conc 7.8 g/dL Normal 6.4-8.2 [facility] Internal Medicine Work Phone: VITD 1,25 [id number] By: Jeb arias French Teacher on 12-09-2006 Calcidiol mass conc 24.2 pg/mL Normal 15.9-55.6 [facility] Internal Medicine Work Phone: Comment on above: Performed At: [address] [id number] CULTURE, THROATOrdered By: Jeb arias French Teacher on 09-21-2006 CULTURE, THROAT See Note [facility] Work Phone: Comment on above: Normal throat shakira isolated. No beta-hemolyticstreptococcus isolated. Vital Signs Date Time Vital Sign Value Performing Clinician Facility 11-07-2024 14:40-0500 Body height 160.02 cm Cindy Mcpherson LEAD INGOT MOLDER-C Work Phone: [facility] 11-07-2024 14:40-0500 Body mass index (BMI) [Ratio] 34.4 kg/m2 Cinyd Mcpherson LEAD INGOT MOLDER-C Work Phone: [facility] 11-07-2024 14:40-0500 Body temperature 97.8 [degF] Cindy Ky LEAD INGOT MOLDER-C Work Phone: [facility] 11-07-2024 14:40-0500 Body weight 88.16 kg Cindy Mcpherson LEAD INGOT M[employer]DER-C Work Phone: [facility] 11-07-2024 14:40-0500 Diastolic blood pressure 70 mm[Hg] Cindy Ky LEAD ING[employer] MOLDER-C Work Phone: [facility] 11-07-2024 14:40-0500 Heart rate 79 /min Cindy Ky LEAD ING[employer] M[employer]DER[employer]C Work Phone: [facility] 11-07-2024 14:40-0500 Respiratory rate 17 /min Cindy Torrezam LEAD ING[employer] MOLDER-C Work Phone: [facility] 11-07-2024 14:40-0500 SaO2% (BldA) [Mass fraction] 97 % Cindy Mcpherson LEAD [employer] M[employer]DER[employer]C Work Phone: [facility] 11-07-2024 14:40-0500 Systolic blood pressure 148 mm[Hg] Cindy Ky LEAD ING[employer] M[employer]DER[employer]C Work Phone: [facility] 02-09-2024 09:07-0400 Diastolic blood pressure 74 mm[Hg] Maricruz Armstrong DO Work Phone: [facility] 02-09-2024 09:07-0400 Heart rate 82 /min Maricruz Armstrong DO Work Phone: [facility] 02-09-2024 09:07-0400 SaO2% (BldA) [Mass fraction] 95 % Maricruz Armstrong DO Work Phone: [facility] 02-09-2024 09:07-0400 Systolic blood pressure 125 mm[Hg] Maricruz Armstrong DO Work Phone: [facility] 12-21-2023 12:59-0400 Body temperature 98.6 [degF] LEAD [employer]C Cindy Mcpherson Work Phone: [facility] 12-21-2023 12:59-0400 Body weight 88.45 kg LEAD [employer] M[employer]C Cindy Ky Work Phone: [facility] 12-21-2023 12:59-0400 Diastolic blood pressure 76 mm[Hg] LEAD [employer] M[employer]C Cindy Ky Work Phone: [facility] 12-21-2023 12:59-0400 Heart rate 78 /min LE[employer]C Cindy Mcpherson Work Phone: [facility] 12-21-2023 12:59-0400 Respiratory rate 13 /min LEAD [employer]C Cindy Mcpherson Work Phone: [facility] 12-21-2023 12:59-0400 SaO2% (BldA) [Mass fraction] 99 % LEAD [employer]C Cindy Mcpherson Work Phone: [facility] 12-21-2023 12:59-0400 Systolic blood pressure 130 mm[Hg] LEAD [employer] M[employer]DER[employer]C Cindy Mcpherson Work Phone: [facility] 08-21-2023 10:34-0500 Diastolic Blood Pressure Non-Invasive [address] DAMIAN HARTMANN MD [facility] 08-21-2023 10:34-0500 Heart rate 79 /min DR DAMIAN HARTMANN MD [facility] 08-21-2023 10:34-0500 Respiratory rate 16 /min DR DAMIAN HARTMANN MD [facility] 08-21-2023 10:34-0500 Systolic Blood Pressure Non-Invasive [address] DAMIAN HARTMANN MD [facility] 08-21-2023 10:19-0500 Diastolic Blood Pressure Non-Invasive [address] DAMIAN HARTMANN MD [facility] 08-21-2023 10:19-0500 Heart rate 88 /min DR DAMIAN HARTMANN MD [facility] 08-21-2023 10:19-0500 Respiratory rate 18 /min DR DAMIAN HARTMANN MD [facility] 08-21-2023 10:19-0500 Systolic Blood Pressure Non-Invasive [address] DAMIAN HARTMANN MD [facility] 08-21-2023 10:04-0500 Body temperature 96.98 [degF] DR DAMIAN HARTMANN MD [facility] 08-21-2023 10:04-0500 Diastolic Blood Pressure Non-Invasive [address] DAMIAN HARTMANN MD [facility] 08-21-2023 10:04-0500 Heart rate 80 /min DR DAMIAN HARTMANN MD [facility] 08-21-2023 10:04-0500 Respiratory rate 18 /min DR DAMIAN HARTMANN MD [facility] 08-21-2023 10:04-0500 Systolic Blood Pressure Non-Invasive [address] DAMIAN HARTMANN MD [facility] 08-21-2023 10:00-0500 Heart rate 85 /min DR DAMIAN HARTMANN MD [facility] 08-21-2023 09:55-0500 Heart rate 87 /min DR DAMIAN HARTMANN MD [facility] 08-21-2023 09:55-0500 Respiratory Rate - Anes 20 br/min DR DAMIAN HARTMANN MD [facility] 08-21-2023 09:50-0500 Heart rate 83 /min DR DAMIAN HARTMANN MD [facility] 08-21-2023 09:50-0500 Respiratory Rate - Anes 24 br/min DR DAMIAN HARTMANN MD [facility] 08-21-2023 08:21-0500 Body height 158.[address] DAMIAN HARTMANN MD [facility] 08-21-2023 08:21-0500 Body temperature 97.52 [degF] DR DAMIAN HARTMANN MD [facility] 08-21-2023 08:21-0500 Body weight 90.[address] DAMIAN HARTMANN MD [facility] 08-21-2023 08:21-0500 Body weight 36.05 kg/m2 DR DAMIAN HARTMANN MD [facility] 02-13-2023 11:41-0400 Body height 158.12 cm Patsy Kwok LPN [facility]; [facility] Work Phone: 02-13-2023 11:41-0400 Body mass index (BMI) [Ratio] 36.92 kg/m2 Patsy Rissa STEELE [facility]; [facility] Work Phone: 02-13-2023 11:41-0400 Body surface area Derived from formula 1.93 m2 Patsy Kwok LPN [facility]; [facility] Work Phone: 02-13-2023 11:41-0400 Body temperature 97.2 [degF] Patsy Rissa STEELE [facility]; [facility] Work Phone: 02-13-2023 11:41-0400 Body weight 92.31 kg Patsy Slarb CHARGE AUDITOR [facility]; [facility] Work Phone: 02-13-2023 11:41-0400 Diastolic blood pressure 82 mm[Hg] Patsy Slarb CHARGE AUDITOR [facility]; [facility] Work Phone: 02-13-2023 11:41-0400 Heart rate 68 /min Patsy Slarb CHARGE AUDITOR [facility]; [facility] Work Phone: 02-13-2023 11:41-0400 Respiratory rate 16 /min Patsy Slarb CHARGE AUDITOR [facility]; [facility] Work Phone: 02-13-2023 11:41-0400 SaO2% (BldA) [Mass fraction] 98 % Patsy Slarb CHARGE AUDITOR [facility]; [facility] Work Phone: 02-13-2023 11:41-0400 Systolic blood pressure 138 mm[Hg] Patsy Slarb CHARGE AUDITOR [facility]; [facility] Work Phone: 02-03-2023 15:38-0400 Body height 160.02 cm LEAD ING[employer] MOLDER-C Cindy Ky Work Phone: [facility] 02-03-2023 15:38-0400 Body mass index (BMI) [Ratio] 36.3 kg/m2 LEAD [employer]C Cidny Torrezam Work Phone: [facility] 02-03-2023 15:38-0400 Body temperature 98.6 [degF] LEAD [employer]C Cindy Torrezam Work Phone: [facility] 02-03-2023 15:38-0400 Body weight 93.07 kg LEAD [employer] M[employer]C Cindy Ky Work Phone: [facility] 02-03-2023 15:38-0400 Diastolic blood pressure 84 mm[Hg] LEAD [employer] M[employer]C Cindy Torrezam Work Phone: [facility] 02-03-2023 15:38-0400 Heart rate 84 /min LE[employer]C Cindy Torrezam Work Phone: [facility] 02-03-2023 15:38-0400 Respiratory rate 17 /min [employer]C Cindy Mcpherson Work Phone: [facility] 02-03-2023 15:38-0400 SaO2% (BldA) [Mass fraction] 98 % LEAD INGOT MOLDER-Bijan Mcpherson Work Phone: [facility] 02-03-2023 15:38-0400 Systolic blood pressure 138 mm[Hg] LEAD [employer] M[employer]DER-C Cindy Mcpherson Work Phone: [facility] 08-29-2022 11:02-0500 Body height 158.12 cm [facility]; [facility] Work Phone: 08-29-2022 11:02-0500 Body mass index (BMI) [Ratio] 36.85 kg/m2 [facility]; [facility] Work Phone: 08-29-2022 11:02-0500 Body surface area Derived from formula 1.93 m2 [facility]; [facility] Work Phone: 08-29-2022 11:02-0500 Body temperature 96.6 [degF] [facility]; [facility] Work Phone: 08-29-2022 11:02-0500 Body weight 92.14 kg [facility]; [facility] Work Phone: 08-29-2022 11:02-0500 Diastolic blood pressure 68 mm[Hg] [facility]; [facility] Work Phone: 08-29-2022 11:02-0500 Heart rate 73 /min [facility]; [facility] Work Phone: 08-29-2022 11:02-0500 Respiratory rate 18 /min [facility]; [facility] Work Phone: 08-29-2022 11:02-0500 SaO2% (BldA) [Mass fraction] 98 % Kayela Lancaster HAND TILE MAKER [facility]; [facility] Work Phone: 08-29-2022 11:02-0500 Systolic blood pressure 116 mm[Hg] [facility]; [facility] Work Phone: 05-06-2022 11:35-0400 Body temperature 98 [degF] LEAD [employer]-C Sushma Valdesa LEAD INGOT MOLDER Work Phone: [facility] Work Phone: 05-06-2022 11:35-0400 Diastolic blood pressure 84 mm[Hg] LEAD [employer] M[employer]-C Sushma Valdesa LEAD INGOT MOLDER Work Phone: [facility] Work Phone: 05-06-2022 11:35-0400 Heart rate 83 /min LE[employer]C Sushma Valdesa LEAD INGOT MOLDER Work Phone: [facility] Work Phone: 05-06-2022 11:35-0400 Respiratory rate 20 /min LEAD [employer] M[employer]-C Sushma Valdesa LEAD INGOT MOLDER Work Phone: [facility] Work Phone: 05-06-2022 11:35-0400 SaO2% (BldA) [Mass fraction] 98 % LE[employer]C Sushma Valdesa LEAD INGOT MOLDER Work Phone: [facility] Work Phone: 05-06-2022 11:35-0400 Systolic blood pressure 144 mm[Hg] LEAD [employer] M[employer]-C Sushma Valdesa LEAD INGOT MOLDER Work Phone: [facility] Work Phone: 04-28-2022 10:58-0400 Body height 158.12 cm [facility]; [facility] Work Phone: 04-28-2022 10:58-0400 Body mass index (BMI) [Ratio] 35.47 kg/m2 [facility]; [facility] Work Phone: 04-28-2022 10:58-0400 Body surface area Derived from formula 1.9 m2 Joanie Sam [facility]; [facility] Work Phone: 04-28-2022 10:58-0400 Body temperature 100.1 [degF] Joanie Sam [facility]; [facility] Work Phone: 04-28-2022 10:58-0400 Body weight 88.68 kg Joanie Sam [facility]; [facility] Work Phone: 04-28-2022 10:58-0400 Diastolic blood pressure 70 mm[Hg] Joanie Sam [facility]; [facility] Work Phone: 04-28-2022 10:58-0400 Heart rate 96 /min Joanie Sam [facility]; [facility] Work Phone: 04-28-2022 10:58-0400 Respiratory rate 16 /min Joanie Sam [facility]; [facility] Work Phone: 04-28-2022 10:58-0400 SaO2% (BldA) [Mass fraction] 97 % Joanie Sam [facility]; [facility] Work Phone: 04-28-2022 10:58-0400 Systolic blood pressure 128 mm[Hg] Joanie Sam [facility]; [facility] Work Phone: 01-09-2022 10:57-0400 Body height 160 cm Maikel Avila MD Work Phone: [facility] 01-09-2022 10:57-0400 Body weight 89.36 kg Maikel Avila MD Work Phone: [facility] 01-09-2022 10:57-0400 Diastolic blood pressure 70 mm[Hg] Maikel Avila MD Work Phone: [facility] 01-09-2022 10:57-0400 Heart rate 76 /min Maikel Avila MD Work Phone: [facility] 01-09-2022 10:57-0400 Respiratory rate 18 /min Maikel Avila MD Work Phone: [facility] 01-09-2022 10:57-0400 Systolic blood pressure 130 mm[Hg] Maikel Avila MD Work Phone: [facility] 12-02-2021 15:00-0500 Body height 158.12 cm Patsy Slarb CHARGE AUDITOR [facility]; [facility] Work Phone: 12-02-2021 15:00-0500 Body mass index (BMI) [Ratio] 35.47 kg/m2 Patsy Slarb CHARGE AUDITOR [facility]; [facility] Work Phone: 12-02-2021 15:00-0500 Body surface area Derived from formula 1.9 m2 Patsy Slarb CHARGE AUDITOR [facility]; [facility] Work Phone: 12-02-2021 15:00-0500 Body temperature 97.7 [degF] Patsy Slarb CHARGE AUDITOR [facility]; [facility] Work Phone: 12-02-2021 15:00-0500 Body weight 88.68 kg Patsy Slarb CHARGE AUDITOR [facility]; [facility] Work Phone: 12-02-2021 15:00-0500 Diastolic blood pressure 80 mm[Hg] Patsy Slarb CHARGE AUDITOR [facility]; [facility] Work Phone: 12-02-2021 15:00-0500 Heart rate 72 /min Patsy Slarb CHARGE AUDITOR [facility]; [facility] Work Phone: 12-02-2021 15:00-0500 Respiratory rate 16 /min Patsy Slarb CHARGE AUDITOR [facility]; [facility] Work Phone: 12-02-2021 15:00-0500 SaO2% (BldA) [Mass fraction] 98 % Patsy Slarb CHARGE AUDITOR [facility]; [facility] Work Phone: 12-02-2021 15:00-0500 Systolic blood pressure 126 mm[Hg] Patsy Slarb CHARGE AUDITOR [facility]; [facility] Work Phone: 12-28-2021 12:02-0500 Body height 158.12 cm Erica [facility] [...] mass index (BMI) [Ratio] 37.81 kg/m2 Patsy Kwok LPN [facility]; [facility] Work Phone: 04-29-2021 11:32-0400 Body surface area Derived from formula 1.95 m2 Patsy Slarb CHARGE AUDITOR [facility]; [facility] Work Phone: 04-29-2021 11:32-0400 Body temperature 97.3 [degF] Patsy Melirb CHARGE AUDITOR [facility]; [facility] Work Phone: 04-29-2021 11:32-0400 Body weight 94.52 kg Patsy Slarb CHARGE AUDITOR [facility]; [facility] Work Phone: 04-29-2021 11:32-0400 Diastolic blood pressure 76 mm[Hg] Patsy Slarb CHARGE AUDITOR [facility]; [facility] Work Phone: 04-29-2021 11:32-0400 Heart rate 81 /min Patsy Melirb CHARGE AUDITOR [facility]; [facility] Work Phone: 04-29-2021 11:32-0400 Respiratory rate 16 /min Patsy Slarb CHARGE AUDITOR [facility]; [facility] Work Phone: 04-29-2021 11:32-0400 SaO2% (BldA) [Mass fraction] 97 % Patsy Slarb CHARGE AUDITOR [facility]; [facility] Work Phone: 04-29-2021 11:32-0400 Systolic blood pressure 118 mm[Hg] Patsy Kwok LPN [facility]; [facility] Work Phone: 10-30-2020 11:37-0500 BMI (Body Mass Index) 37.56 kg/m2 Srikanth Bennett LPN [facility]; [facility] Work Phone: [...] 11:37-0500 Pulse Oximetry 97 % Sushma Mueller [facility]; [facility] [...] Surface Area) 1.94 m2 Srikanth Bennett LPN [facility] Medicine Work Phone: 09-14-2020 08:09-0500 Height 158.12 cm Srikanth Bennett LPN [facility] Medicine Work Phone: 04-25-2020 13:43-0400 BMI (Body Mass Index) 37.2 kg/m2 Srikanth Bennett LPN [facility] Work Phone: 04-25-2020 13:43-0400 Body Temperature 97.1 [degF] Srikanth Bennett LPN [facility] Internal Medicine Work Phone: Comment on above: Method: Infrared 04-25-2020 13:43-0400 Body weight 93 kg Srikanth Bennett LPN [facility] Internal Medicine Work Phone: 04-25-2020 13:43-0400 BP Diastolic 72 mm[Hg] Srikanth Bennett LPN [facility] Internal Medicine Work Phone: Comment on above: Patient Position: Sitting; Cuff Location : Left Arm; Cuff Size: Standard 04-25-2020 13:43-0400 BP Systolic 130 mm[Hg] Srikanth Bennett LPN [facility] Internal Medicine Work Phone: Comment on above: Patient Position: Sitting; Cuff Location : Left Arm; Cuff Size: Standard 04-25-2020 13:43-0400 BSA (Body Surface Area) 1.94 m2 Srikanth Bennett LPN [facility] Internal Medicine Work Phone: 04-25-2020 13:43-0400 Height 158.12 cm Srikanth Bennett LPN [facility] Internal Medicine Work Phone: 04-25-2020 13:43-0400 Pulse (Heart Rate) 92 /min Srikanth Bennett LPN [facility] Work Phone: Comment on above: Pattern: Regular 04-25-2020 13:43-0400 Pulse Oximetry 97 % Sushma Mueller [facility] Internal Medicine Work Phone: Comment on above: Room air 04-25-2020 13:43-0400 Respiratory Rate 16 /min Srikanth Donald [facility] Internal Medicine Work Phone: Comment on above: Pattern: Unlabored 04-25-2020 13:43-0400 SaO2% (BldA) [Mass fraction] 97 % Srikanth Bennett CHARGE AUDITOR [facility] Internal Medicine Work Phone: 01-16-2020 10:42-0400 BMI (Body Mass Index) 37.38 kg/m2 Srikanth Bennett IVETTE [facility] Work Phone: 01-16-2020 10:42-0400 Body Temperature 98.1 [degF] Srikanth Bennett CHARGE AUDITOR [facility] Internal Medicine Work Phone: Comment on above: Method: Temporal 01-16-2020 10:42-0400 Body weight 93.46 kg Srikanth Bennett IVETTE [facility] Internal Medicine Work Phone: 01-16-2020 10:42-0400 BP Diastolic 71 mm[Hg] Srikanth Bennett CHARGE AUDITOR [facility] Internal Medicine Work Phone: Comment on above: Patient Position: Sitting; Cuff Location : Left Arm; Cuff Size: Standard 01-16-2020 10:42-0400 BP Systolic 130 mm[Hg] Srikanth Bennett CHARGE AUDITOR [facility] Internal Medicine Work Phone: Comment on above: Patient Position: Sitting; Cuff Location : Left Arm; Cuff Size: Standard 01-16-2020 10:42-0400 BSA (Body Surface Area) 1.94 m2 Srikanth Bennett IVETTE [facility] Internal Medicine Work Phone: 01-16-2020 10:42-0400 Height 158.12 cm Srikanth Donald STEELE [facility] Internal Medicine Work Phone: 01-16-2020 10:42-0400 Pulse (Heart Rate) 81 /min Srikanth Bennett IVETTE [facility] Work Phone: Comment on above: Pattern: Regular 01-16-2020 10:42-0400 Pulse Oximetry 97 % Sushma Mueller [facility] Internal Medicine Work Phone: Comment on above: Room air 01-16-2020 10:42-0400 Respiratory Rate 16 /min Srikanth Bennett CHARGE AUDITOR [facility] Internal Medicine Work Phone: Comment on above: Pattern: Unlabored 01-16-2020 10:42-0400 SaO2% (BldA) [Mass fraction] 97 % Srikanth Bennett LPN [facility] Work Phone: 10-14-2019 07:54-0500 BMI (Body Mass Index) 36.66 kg/m2 Srikanth Bennett LPN [facility] Work Phone: 10-14-2019 07:54-0500 Body Temperature 97.5 [degF] Srikanth Bennett LPN [facility] Internal Medicine Work Phone: Comment on above: Method: Temporal 10-14-2019 07:54-0500 Body weight 91.64 kg Srikanth Bennett LPN [facility] Internal Medicine Work Phone: 10-14-2019 07:54-0500 BP Diastolic 82 mm[Hg] Srikanth Bennett LPN [facility] Internal Medicine Work Phone: Comment on above: Patient Position: Sitting; Cuff Location : Left Arm; Cuff Size: Standard 10-14-2019 07:54-0500 BP Systolic 130 mm[Hg] Srikanth Bennett LPN [facility] Internal Medicine Work Phone: Comment on above: Patient Position: Sitting; Cuff Location : Left Arm; Cuff Size: Standard 10-14-2019 07:54-0500 BSA (Body Surface Area) 1.93 m2 Srikanth Bennett LPN [facility] Internal Medicine Work Phone: 10-14-2019 07:54-0500 Height 158.12 cm Srikanth Bennett LPN [facility] Internal Medicine Work Phone: 10-14-2019 07:54-0500 Pulse (Heart Rate) 90 /min Srikanth Bennett LPN [facility] Work Phone: Comment on above: Pattern: Regular 10-14-2019 07:54-0500 Pulse Oximetry 96 % Sushma Mueller [facility] Internal Medicine Work Phone: Comment on above: Room air 10-14-2019 07:54-0500 Respiratory Rate 16 /min Srikanth Bennett LPN [facility] Internal Medicine Work Phone: Comment on above: Pattern: Unlabored 10-14-2019 07:54-0500 SaO2% (BldA) [Mass fraction] 96 % Srikanth Bennett LPN [facility] Internal Medicine Work Phone: 08-15-2019 14:02-0500 BMI (Body Mass Index) 36.48 kg/m2 Erica Live LPN [facility] Work Phone: 08-15-2019 14:02-0500 Body Temperature 97.6 [degF] Erica Live LPN [facility] Internal Medicine Work Phone: Comment on above: Method: Temporal 08-15-2019 14:02-0500 Body weight 91.19 kg Erica Live LPN [facility] Internal Medicine Work Phone: 08-15-2019 14:02-0500 BP Diastolic 75 mm[Hg] Erica Live LPN [facility] Internal Medicine Work Phone: Comment on above: Patient Position: Sitting; Cuff Location : Left Arm; Cuff Size: Standard 08-15-2019 14:02-0500 BP Systolic 118 mm[Hg] Erica Live LPN [facility] Internal Medicine Work Phone: Comment on above: Patient Position: Sitting; Cuff Location : Left Arm; Cuff Size: Standard 08-15-2019 14:02-0500 BSA (Body Surface Area) 1.92 m2 Erica Live LPN [facility] Internal Medicine Work Phone: 08-15-2019 14:02-0500 Height 158.12 cm Erica Live LPN [facility] Internal Medicine Work Phone: 08-15-2019 14:02-0500 Pulse (Heart Rate) 74 /min Erica Live LPN [facility] Work Phone: Comment on above: Pattern: Regular 08-15-2019 14:02-0500 Pulse Oximetry 96 % Sushma Mueller [facility] Internal Medicine Work Phone: Comment on above: Room air 08-15-2019 14:02-0500 Respiratory Rate 16 /min Erica Live LPN [facility] Internal Medicine Work Phone: Comment on above: Pattern: Unlabored 08-15-2019 14:02-0500 SaO2% (BldA) [Mass fraction] 96 % Reica Calos CHARGE AUDITOR [facility] Work Phone: 07-13-2019 12:48-0400 BMI (Body Mass Index) 36.11 kg/m2 Patsy Kwok CHARGE AUDITOR [facility] Work Phone: 07-13-2019 12:48-0400 Body Temperature 96 [degF] Patsy Kwok CHARGE AUDITOR [facility] Work Phone: 07-13-2019 12:48-0400 Body weight 90.27 kg Patsy Kwok CHARGE AUDITOR [facility] Work Phone: 07-13-2019 12:48-0400 BP Diastolic 86 mm[Hg] Patsy Garrisonrb CHARGE AUDITOR [facility] Work Phone: Comment on above: Patient Position: Sitting; Cuff Location : Left Arm; Cuff Size: Standard 07-13-2019 12:48-0400 BP Systolic 140 mm[Hg] Patsy Kwok CHARGE AUDITOR [facility] Work Phone: Comment on above: Patient Position: Sitting; Cuff Location : Left Arm; Cuff Size: Standard 07-13-2019 12:48-0400 BSA (Body Surface Area) 1.91 m2 Patsy Kwok CHARGE AUDITOR [facility] Work Phone: 07-13-2019 12:48-0400 Height 158.12 cm Patsy Kwok CHARGE AUDITOR [facility] Work Phone: 07-13-2019 12:48-0400 Pulse (Heart Rate) 81 /min Patsy Kwok CHARGE AUDITOR [facility] Work Phone: Comment on above: Pattern: Regular 07-13-2019 12:48-0400 Pulse Oximetry 96 % Sushma Mueller [facility] Work Phone: Comment on above: Room air 07-13-2019 12:48-0400 Respiratory Rate 16 /min Patsy Kwok CHARGE AUDITOR [facility] Work Phone: Comment on above: Pattern: Unlabored 07-13-2019 12:48-0400 SaO2% (BldA) [Mass fraction] 96 % Patsy Kwok CHARGE AUDITOR [facility] Work Phone: 01-25-2019 10:54-0400 BMI (Body Mass Index) 35.02 kg/m2 Srikanth Bennett LPN [facility] Work Phone: 01-25-2019 10:54-0400 Body Temperature 97.5 [degF] Srikanth Bennett LPN [facility] Work Phone: Comment on above: Method: Temporal 01-25-2019 10:54-0400 Body weight 87.54 kg Srikanth Bennett LPN [facility] Internal Medicine Work Phone: 01-25-2019 10:54-0400 BP Diastolic 82 mm[Hg] Srikanth Bennett LPN [facility] Internal Medicine Work Phone: Comment on above: Patient Position: Sitting; Cuff Location : Left Arm; Cuff Size: Standard 01-25-2019 10:54-0400 BP Systolic 130 mm[Hg] Srikanth Bennett LPN [facility] Internal [facility] Work Phone: Comment on above: Patient Position: Sitting; Cuff Location : Left Arm; Cuff Size: Standard 01-25-2019 10:54-0400 BSA (Body Surface Area) 1.89 m2 Srikanth Bennett LPN [facility] Internal Medicine Work Phone: 01-25-2019 10:54-0400 Height 158.12 cm Srikanth Bennett LPN [facility] Work Phone: 01-25-2019 10:54-0400 Pulse (Heart Rate) 75 /min Srikanth Bennett LPN [facility] Work Phone: Comment on above: Pattern: Regular 01-25-2019 10:54-0400 Pulse Oximetry 95 % Sushma Mueller [facility] Internal [facility] Work Phone: Comment on above: Room air 01-25-2019 10:54-0400 Respiratory Rate 18 /min Srikanth Bennett LPN [facility] Internal Medicine Work Phone: Comment on above: Pattern: Unlabored 01-25-2019 10:54-0400 SaO2% (BldA) [Mass fraction] 95 % Srikanth Bennett LPN [facility] Internal Medicine Work Phone: 01-25-2019 10:54-0400 Weight 87.54 kg Sushma Mueller [facility] Work Phone: 08-21-2017 11:22-0500 BMI (Body Mass Index) 35.02 kg/m2 Patsy Kwok LPN [facility] Work Phone: 08-21-2017 11:22-0500 Body Temperature 98.5 [degF] Patsy Garrisonrb CHARGE AUDITOR [facility] Work Phone: 08-21-2017 11:22-0500 Body weight 87.54 kg Patsy Kwok LPN [facility] Work Phone: 08-21-2017 11:22-0500 BP Diastolic 78 mm[Hg] Patsy Garrisonrb CHARGE AUDITOR [facility] Work Phone: Comment on above: Patient Position: Sitting; Cuff Location : Left Arm; Cuff Size: Standard 08-21-2017 11:22-0500 BP Systolic 122 mm[Hg] Patsy Kwok LPN [facility] Work Phone: Comment on above: Patient Position: Sitting; Cuff Location : Left Arm; Cuff Size: Standard 08-21-2017 11:22-0500 BSA (Body Surface Area) 1.89 m2 Patsy Kwok LPN [facility] Work Phone: 08-21-2017 11:22-0500 Height 158.12 cm Patsy Kwok LPN [facility] Work Phone: 08-21-2017 11:22-0500 Pulse (Heart Rate) 91 /min Patsy Kwok LPN [facility] Work Phone: Comment on above: Pattern: Regular 08-21-2017 11:22-0500 Pulse Oximetry 95 % Sushma Mueller [facility] Work Phone: Comment on above: Room air 08-21-2017 11:22-0500 Respiratory Rate 16 /min Patsy Kwok LPN [facility] Work Phone: Comment on above: Pattern: Unlabored 08-21-2017 11:22-0500 SaO2% (BldA) [Mass fraction] 95 % Patsy Garrisonrb CHARGE AUDITOR [facility] Work Phone: 08-21-2017 11:22-0500 Weight 87.54 kg Sushma Mueller [facility] Work Phone: 07-27-2017 10:23-0400 BMI (Body Mass Index) 35.56 kg/m2 Patsy Garrisonrb CHARGE AUDITOR [facility] Work Phone: 07-27-2017 10:23-0400 Body Temperature 97.5 [degF] Patsy Garrisonrb CHARGE AUDITOR [facility] Work Phone: 07-27-2017 10:23-0400 Body weight 88.91 kg Patsy Garrisonrb CHARGE AUDITOR [facility] Work Phone: 07-27-2017 10:23-0400 BP Diastolic 84 mm[Hg] Patsy Garrisonrb CHARGE AUDITOR [facility] Work Phone: Comment on above: Patient Position: Sitting; Cuff Location : Left Arm; Cuff Size: Standard 07-27-2017 10:23-0400 BP Systolic 152 mm[Hg] Patsy Kwok CHARGE AUDITOR [facility] Work Phone: Comment on above: Patient Position: Sitting; Cuff Location : Left Arm; Cuff Size: Standard 07-27-2017 10:23-0400 BSA (Body Surface Area) 1.9 m2 Patsy Kwok LPN [facility] Work Phone: 07-27-2017 10:23-0400 Height 158.12 cm Patsy Kwok CHARGE AUDITOR [facility] Work Phone: 07-27-2017 10:23-0400 Pulse (Heart Rate) 85 /min Patsy Kwok CHARGE AUDITOR [facility] Work Phone: Comment on above: Pattern: Regular 07-27-2017 10:23-0400 Pulse Oximetry 96 % Sushma Mueller [facility] Work Phone: Comment on above: Room air 07-27-2017 10:23-0400 Respiratory Rate 17 /min Patsy Kwok CHARGE AUDITOR [facility] Work Phone: Comment on above: Pattern: Unlabored 07-27-2017 10:23-0400 SaO2% (BldA) [Mass fraction] 96 % Patsy Kwok IVETTE [facility] Work Phone: 07-27-2017 10:23-0400 Weight 88.91 kg Sushma Mueller [facility] Work Phone: 11-13-2016 11:24-0500 BMI (Body Mass Index) 34.65 kg/m2 Latasha Disla RN [facility] Internal Medicine Work Phone: 11-13-2016 11:24-0500 Body [...] (Heart Rate) 86 /min Evelyne Griffiths RN [facility] Work Phone: Comment on above: Pattern: Regular 10-20-2016 10:47-0500 Pulse Oximetry 97 % Sushma Mueller [facility] Work Phone: Comment on above: Room air 10-20-2016 10:47-0500 Respiratory Rate 18 /min Evelyne Griffiths RN [facility] Work Phone: Comment on above: Pattern: Unlabored 10-20-2016 10:47-0500 SaO2% (BldA) [Mass fraction] 97 % Evelyne Griffiths RN [facility] Work Phone: 10-20-2016 10:47-0500 Weight 85.96 kg Sushma Mueller [facility] Work Phone: 08-07-2016 10:29-0400 BMI (Body Mass Index) 34.86 kg/m2 Latasha Disla RN [facility] Internal Medicine Work Phone: 08-07-2016 [...] [facility] Work Phone: 08-07-2016 10:29-0400 Height 158.12 cm Latasha Disla RN [facility] Work Phone: 08-07-2016 10:29-0400 Pulse (Heart Rate) 74 /min Latasha Disla RN [facility] Work Phone: Comment on above: Pattern: Regular 08-07-2016 10:29-0400 Pulse Oximetry 98 % Sushma Valdessavanna [facility] Work Phone: Comment on above: Room air 08-07-2016 10:29-0400 Respiratory Rate 16 /min Latasha Disla RN [facility] Work Phone: Comment on above: Pattern: Unlabored 08-07-2016 10:29-0400 SaO2% (BldA) [Mass fraction] 98 % Latasha Disla RN [facility] Work Phone: 08-07-2016 10:29-0400 Weight 87.15 kg Sushma Mueller [facility] Work Phone: 05-13-2016 14:07-0400 BMI (Body Mass Index) 35.22 kg/m2 Latasha Disla RN [facility] Work Phone: 05-13-2016 14:07-0400 Body Temperature 97.8 [degF] Latasha Disla RN [facility] Internal [facility] Work Phone: Comment on above: Method: Temporal 05-13-2016 14:07-0400 Body weight 88.06 kg Latasha Disla RN [facility] Work Phone: 05-13-2016 14:07-0400 BP Diastolic 78 mm[Hg] Latasha Disla RN [facility] Work Phone: Comment on above: Patient Position: Sitting; Cuff Location : Left Arm; Cuff Size: Standard 05-13-2016 14:07-0400 BP Systolic 120 mm[Hg] Latasha Disla RN [facility] Work Phone: Comment on above: Patient Position: Sitting; Cuff Location : Left Arm; Cuff Size: Standard 05-13-2016 14:07-0400 BSA (Body Surface Area) 1.89 m2 Latasha Disla RN [facility] Work Phone: 05-13-2016 14:07-0400 Height 158.12 cm Latasha Disla RN [facility] Work Phone: 05-13-2016 14:07-0400 Pulse (Heart Rate) 74 /min Latasha Disla RN [facility] Work Phone: Comment on above: Pattern: Regular 05-13-2016 14:07-0400 Pulse Oximetry 97 % Sushma Mueller [facility] Work Phone: Comment on above: Room air 05-13-2016 14:07-0400 Respiratory Rate 16 /min Latasha Disla RN [facility] Work Phone: Comment on above: Pattern: Unlabored 05-13-2016 14:07-0400 SaO2% (BldA) [Mass fraction] 97 % Latasha Disla RN [facility] Work Phone: 05-13-2016 14:07-0400 Weight 88.06 kg Sushma Mueller [facility] Work Phone: 03-05-2016 08:11-0400 BMI (Body Mass Index) 35.22 kg/m2 Riddhi Tapia [facility] Internal Medicine Work Phone: Comment on above: orthostaticssittin/72 P 107standin /70 P104 no extra dizziness upon standing 03-05-2016 08:11-0400 Body Temperature 98 [degF] [facility] Work Phone: Comment on above: orthostaticssittin/72 P 107standin /70 P104 no extra dizziness upon standing 03-05-2016 08:11-0400 Body weight 88.[address] [facility] Work Phone: Comment on above: orthostaticssittin/72 P 107standin /70 P104 no extra dizziness upon standing 03-05-2016 08:11-0400 BP Diastolic 74 mm[Hg] Riddhi [facility] Internal Medicine Work Phone: Comment on above: Patient Position: Sitting; Cuff Location : Left Arm; Cuff Size: Standard orthostaticssittin/72 P 107standin/70 P104 no extra dizziness upon standing 03-05-2016 08:11-0400 BP Systolic 122 mm[Hg] Riddhi [facility] Internal Medicine Work Phone: Comment on above: Patient Position: Sitting; Cuff Location : Left Arm; Cuff Size: Standard orthostaticssittin/72 P 107standin/70 P104 no extra dizziness upon standing 03-05-2016 08:11-0400 BSA (Body Surface Area) 1.89 m2 Riddhi [facility] Internal Medicine Work Phone: Comment on above: orthostaticssittin/72 P 107standin /70 P104 no extra dizziness upon standing 03-05-2016 08:11-0400 Height 158.[address] [facility] Work Phone: Comment on above: orthostaticssittin/72 P 107standin /70 P104 no extra dizziness upon standing 03-05-2016 08:11-0400 Pulse (Heart Rate) 100 /min [facility] Work Phone: Comment on above: Pattern: Regular orthostaticssittin/72 P 107standin/70 P104 no extra dizziness upon standing 03-05-2016 08:11-0400 Pulse Oximetry 95 % [facility] Work [facility]: Comment on above: Room air orthostaticssittin/72 P 107standin/70 P104 no extra dizziness upon standing 03-05-2016 08:11-0400 Respiratory Rate 18 /min [facility] Work Phone: Comment on above: Pattern: Unlabored orthostaticssittin/72 P 107standin/70 P104 no extra dizziness upon standing 03-05-2016 08:11-0400 SaO2% (BldA) [Mass fraction] 95 % [facility] Work Phone: 03-05-2016 08:11-0400 [facility] 88.06 [facility] Work Phone: Comment on above: orthostaticssittin/72 P 107standin /70 P104 no extra dizziness upon standing 12-03-2015 09:19-0500 BMI (Body Mass Index) 35.22 kg/m2 Patsy Kwok LPN [facility] Internal Medicine Work Phone: 12-03-2015 09:19-0500 Body Temperature 97.4 [degF] Patsy Kwok LPN [facility] Medicine Work Phone: 12-03-2015 09:19-0500 Body weight 88.06 kg Patsy Kwok LPN [facility] Work Phone: 12-03-2015 09:19-0500 BP Diastolic 82 mm[Hg] Patsy Kwok LPN [facility] Work Phone: Comment on above: Patient Position: Sitting; Cuff Location : Left Arm; Cuff Size: Standard 12-03-2015 09:19-0500 BP Systolic 116 mm[Hg] Patsy Kwok LPN [facility] Work Phone: Comment on above: Patient Position: Sitting; Cuff Location : Left Arm; Cuff Size: Standard 12-03-2015 09:19-0500 BSA (Body Surface Area) 1.89 m2 Patsy Kwok LPN [facility] Work Phone: 12-03-2015 09:19-0500 Height 158.12 cm Patsy Kwok LPN [facility] Work Phone: 12-03-2015 09:19-0500 Pulse (Heart Rate) 94 /min Patsy Kwok LPN [facility] Work Phone: Comment on above: Pattern: Regular 12-03-2015 09:19-0500 Pulse Oximetry 98 % Sushma Mueller [facility] Medicine Work Phone: Comment on above: Room air 12-03-2015 09:19-0500 Respiratory Rate 18 /min Patsy Kwok LPN [facility] Work Phone: Comment on above: Pattern: Unlabored 12-03-2015 09:19-0500 SaO2% (BldA) [Mass fraction] 98 % Patsy Kwok LPN [facility] Work Phone: 12-03-2015 09:19-0500 Weight 88.06 kg Sushma Mueller [facility] Work Phone: 05-14-2015 10:44-0400 BMI (Body Mass Index) 35.38 kg/m2 Yuni Lizama [facility] Internal Medicine Work Phone: 05-14-2015 10:44-0400 Body Temperature 97.5 [degF] Yuni Dl [facility] Internal Medicine Work Phone: 05-14-2015 10:44-0400 Body weight 88.45 kg [facility] Internal Medicine Work Phone: 05-14-2015 10:44-0400 BP Diastolic 80 mm[Hg] [facility] Medicine Work Phone: Comment on above: Patient Position: Sitting; Cuff Location : Left Arm; Cuff Size: Standard 05-14-2015 10:44-0400 BP Systolic 132 mm[Hg] [facility] Internal Medicine Work Phone: Comment on above: Patient Position: Sitting; Cuff Location : Left Arm; Cuff Size: Standard 05-14-2015 10:44-0400 BSA (Body Surface Area) 1.9 m2 [facility] Internal Medicine Work Phone: 05-14-2015 10:44-0400 Height 158.12 cm [facility] Internal Medicine Work Phone: 05-14-2015 10:44-0400 Pulse (Heart Rate) 86 /min [facility] Internal Medicine Work Phone: Comment on above: Pattern: Regular 05-14-2015 10:44-0400 Pulse Oximetry 96 % [facility] Internal Medicine Work Phone: Comment on above: Room air 05-14-2015 10:44-0400 SaO2% (BldA) [Mass fraction] 96 % [facility] Internal Medicine Work Phone: 05-14-2015 10:44-0400 Weight 88.45 kg [facility] Internal Medicine Work Phone: 04-04-2015 10:18-0400 BMI (Body Mass Index) 35.74 kg/m2 [facility] Work Phone: 04-04-2015 10:18-0400 Body Temperature 97.8 [degF] Nika Ricketts [facility] Internal Medicine Work Phone: Comment on above: Method: Oral 04-04-2015 10:18-0400 Body weight 89.36 kg Nika Ricketts [facility] Internal Medicine Work Phone: 04-04-2015 10:18-0400 BP Diastolic 86 mm[Hg] Nika Ricketts [facility] Internal Medicine Work Phone: Comment on above: Patient Position: Sitting; Cuff Location : Left Arm; Cuff Size: Large 04-04-2015 10:18-0400 BP Systolic 136 mm[Hg] Nika Ricketts [facility] Internal Medicine Work Phone: Comment on above: Patient Position: Sitting; Cuff Location : Left Arm; Cuff Size: Large 04-04-2015 10:18-0400 BSA (Body Surface Area) 1.9 m2 Nika Millslaila [facility] Internal Medicine Work Phone: 04-04-2015 10:18-0400 Height 158.12 cm Nika Millslaila [facility] Internal Medicine Work Phone: 04-04-2015 10:18-0400 Pulse (Heart Rate) 74 /min Nika Fllaila [facility] Internal Medicine Work Phone: Comment on above: Pattern: Regular 04-04-2015 10:18-0400 Respiratory Rate 16 /min Nika Fllaila [facility] Internal Medicine Work Phone: Comment on above: Pattern: Unlabored 04-04-2015 10:18-0400 Weight 89.36 kg Sushma Mueller [facility] Internal Medicine Work Phone: 04-25-2013 10:42-0400 BMI (Body Mass Index) 32.48 kg/m2 Latasha Disla RN [facility] Internal Medicine Work Phone: Comment on above: patient had checked 2x on Thursday 5 isabel socorro between each check at work 140/60 and 132/64 04-25-2013 10:42-0400 Body Temperature 98.9 [degF] Latasha Disla [facility] Medicine Work Phone: Comment on above: Method: Temporal patient had checked 2x on Thursday 5 minutes between each check at work 140/60 and 132/64 04-25-2013 10:42-0400 Body weight 81.19 kg Latasha Disla RN [facility] Medicine Work Phone: Comment on above: patient had checked 2x on Thursday 5 isabel socorro between each check at work 140/60 and 132/64 04-25-2013 10:42-0400 BP Diastolic 76 mm[Hg] Latasha Disla RN [facility] Medicine [...] (Heart Rate) 87 /min Latasha Disla RN [facility] Medicine Work Phone: Comment on above: Pattern: Regular patient had checked 2x on Thursday 5 minutes between each check at work 140/60 and 132/64 04-25-2013 10:42-0400 Pulse Oximetry 98 % Sushma Mueller [facility] Work [...] [Mass fraction] 98 % Latasha Disla RN [facility] Internal Medicine Work Phone: 04-25-2013 10:42-0400 Weight 81.19 kg Sushma Mueller [facility] Internal Medicine Work Phone: Comment on above: patient had checked 2x on Thursday 5 isabel socorro between each check at work 140/60 and 132/64 04-18-2013 12:08-0400 BMI (Body Mass Index) 32.48 kg/m2 Nika Calhoun [facility] Internal Medicine Work Phone: 04-18-2013 12:08-0400 Body Temperature 96.6 [degF] Nika Ricketts [facility] Internal Medicine Work Phone: 04-18-2013 12:08-0400 Body weight 81.19 kg Nika Ricketts [facility] Internal Medicine Work Phone: 04-18-2013 12:08-0400 BP Diastolic 90 mm[Hg] Nika Ricketts [facility] Internal Medicine Work Phone: Comment on above: Patient Position: Sitting; Cuff Location : Left Arm; Cuff Size: Large 04-18-2013 12:08-0400 BP Systolic 132 mm[Hg] Nika Ricketts [facility] Internal Medicine Work Phone: Comment on above: Patient Position: Sitting; Cuff Location : Left Arm; Cuff Size: Large 04-18-2013 12:08-0400 BSA (Body Surface Area) 1.83 m2 Nika Ricketts [facility] Internal Medicine Work Phone: 04-18-2013 12:08-0400 Height 158.12 cm Nika Ricketts [facility] Internal Medicine Work Phone: 04-18-2013 12:08-0400 Pulse (Heart Rate) 80 /min Nika Sanchezensiv e Internal Medicine Work Phone: Comment on above: Pattern: Regular 04-18-2013 12:08-0400 Respiratory Rate 16 /min Nika Ricketts [facility] Internal Medicine Work Phone: Comment on above: Pattern: Unlabored 04-18-2013 12:08-0400 Weight 81.19 kg Sushma Mueller [facility] Internal Medicine Work Phone: 03-22-2013 08:58-0400 BMI (Body Mass Index) 32.84 kg/m2 Nika Liliam [facility] Internal Medicine Work Phone: 03-22-2013 08:58-0400 Body Temperature 98.3 [degF] Nika Millsjostinjasper [facility] Internal Medicine Work Phone: 03-22-2013 08:58-0400 Body weight 82.1 kg Nika Millsjostinjasper [facility] Internal Medicine Work Phone: 03-22-2013 08:58-0400 BP Diastolic 70 mm[Hg] Nika Liliam [facility] Internal Medicine Work Phone: Comment on above: Patient Position: Sitting; Cuff Location : Left Arm; Cuff Size: Large 03-22-2013 08:58-0400 BP Systolic 136 mm[Hg] Nika Gloverjasper [facility] Internal Medicine Work Phone: Comment on above: Patient Position: Sitting; Cuff Location : Left Arm; Cuff Size: Large 03-22-2013 08:58-0400 BSA (Body Surface Area) 1.84 m2 Nika Millslaila [facility] Internal Medicine Work Phone: 03-22-2013 08:58-0400 Height 158.12 cm Nika Liliam [facility] Internal Medicine Work Phone: 03-22-2013 08:58-0400 Pulse (Heart Rate) 84 /min Nika Millslaila [facility] Internal Medicine Work Phone: Comment on above: Pattern: Regular 03-22-2013 08:58-0400 Respiratory Rate 18 /min Nika Millslaila [facility] Internal Medicine Work Phone: Comment on above: Pattern: Unlabored 03-22-2013 08:58-0400 Weight 82.1 kg Sushma Mueller [facility] Internal Medicine Work Phone: 01-17-2013 13:20-0400 BMI (Body Mass Index) 33.2 kg/m2 Nika Ricketts [facility] Internal Medicine Work Phone: 01-17-2013 13:20-0400 Body Temperature 97.4 [degF] Nika Ricketts [facility] Internal Medicine Work Phone: 01-17-2013 13:20-0400 Body weight 83.01 kg Nika Ricketts [facility] Internal Medicine Work Phone: 01-17-2013 13:20-0400 BP Diastolic 78 mm[Hg] Nika Ricketts [facility] Internal Medicine Work Phone: Comment on above: Patient Position: Sitting; Cuff Location : Left Arm; Cuff Size: Large 01-17-2013 13:20-0400 BP Systolic 156 mm[Hg] Nika Ricketts [facility] Internal Medicine Work Phone: Comment on above: Patient Position: Sitting; Cuff Location : Left Arm; Cuff Size: Large 01-17-2013 13:20-0400 BSA (Body Surface Area) 1.85 m2 Nika Ricketts [facility] Internal Medicine Work Phone: 01-17-2013 13:20-0400 Height 158.12 cm Nika Ricketts [facility] Internal Medicine Work Phone: 01-17-2013 13:20-0400 Pulse (Heart Rate) 76 /min Nika Ricketts [facility] Internal Medicine Work Phone: Comment on above: Pattern: Regular 01-17-2013 13:20-0400 Respiratory Rate 18 /min Nika Ricketts [facility] Internal Medicine Work Phone: Comment on above: Pattern: Unlabored 01-17-2013 13:20-0400 Weight 83.01 kg Sushma Mueller [facility] Internal Medicine Work Phone: 12-24-2012 09:44-0400 BMI (Body Mass Index) 33.2 kg/m2 Nika Ricketts [facility] Internal Medicine Work Phone: 12-24-2012 09:44-0400 Body Temperature 97.8 [degF] Nika Ricketts [facility] Internal Medicine Work Phone: 12-24-2012 09:44-0400 Body weight 83.01 kg Nika Ricketts [facility] Internal Medicine Work Phone: 12-24-2012 09:44-0400 BP Diastolic 62 mm[Hg] Nika Ricketts [facility] Internal Medicine Work Phone: Comment on above: Patient Position: Sitting; Cuff Location : Left Arm; Cuff Size: Large 12-24-2012 09:44-0400 BP Systolic 136 mm[Hg] Nika Ricketts [facility] Internal Medicine Work Phone: Comment on above: Patient Position: Sitting; Cuff Location : Left Arm; Cuff Size: Large 12-24-2012 09:44-0400 BSA (Body Surface Area) 1.85 m2 Nika Gloverjasper [facility] Internal Medicine Work Phone: 12-24-2012 09:44-0400 Height 158.12 cm Nika Ricketts [facility] Internal Medicine Work Phone: 12-24-2012 09:44-0400 Pulse (Heart Rate) 88 /min Nika Ricketts [facility] Internal Medicine Work Phone: Comment on above: Pattern: Regular 12-24-2012 09:44-0400 Respiratory Rate 18 /min Nika Gloverjasper [facility] Internal Medicine Work Phone: Comment on above: Pattern: Unlabored 12-24-2012 09:44-0400 Weight 83.01 kg Sushma Mueller [facility] Internal Medicine Work Phone: 09-27-2012 11:25-0500 BMI (Body Mass Index) 33.2 kg/m2 Nika Ricketts [facility] Internal Medicine Work Phone: 09-27-2012 11:25-0500 Body Temperature 98.9 [degF] Nika Millslaila [facility] Internal Medicine Work Phone: 09-27-2012 11:25-0500 Body weight 83.01 kg Nika Millslaila [facility] Internal Medicine Work Phone: 09-27-2012 11:25-0500 BP Diastolic 68 mm[Hg] Nika Ricketts [facility] Internal Medicine Work Phone: Comment on above: Patient Position: Sitting; Cuff Location : Left Arm; Cuff Size: Large 09-27-2012 11:25-0500 BP Systolic 116 mm[Hg] Nika Ricketts [facility] Internal Medicine Work Phone: Comment on above: Patient Position: Sitting; Cuff Location : Left Arm; Cuff Size: Large 09-27-2012 11:25-0500 BSA (Body Surface Area) 1.85 m2 Nika Millslaila [facility] Internal Medicine Work Phone: 09-27-2012 11:25-0500 Height 158.12 cm Nika Millslaila [facility] Internal Medicine Work Phone: 09-27-2012 11:25-0500 Pulse (Heart Rate) 88 /min Nika Liliam [facility] Internal Medicine Work Phone: Comment on above: Pattern: Regular 09-27-2012 11:25-0500 Respiratory Rate 16 /min Nika Millslaila [facility] Internal Medicine Work Phone: Comment on above: Pattern: Unlabored 09-27-2012 11:25-0500 Weight 83.01 kg Sushma Mueller [facility] Internal Medicine Work Phone: 09-08-2012 15:40-0500 BMI (Body Mass Index) 33.93 kg/m2 Latasha Disla RN [facility] Internal Medicine Work Phone: 09-08-2012 15:40-0500 Body [...] BP Systolic 122 mm[Hg] Latasha Disla RN [facility] Internal Medicine Work Phone: Comment on above: Patient Position: Sitting; Cuff Location : Left Arm; Cuff Size: Standard 09-08-2012 15:40-0500 BSA (Body Surface Area) 1.86 m2 Latasha Disla RN [facility] Internal Medicine Work Phone: 09-08-2012 15:40-0500 Height 158.12 cm Latasha Disla [facility] Medicine Work Phone: 09-08-2012 15:40-0500 Pulse (Heart Rate) 72 /min Latasha Disla RN [facility] Internal Medicine Work Phone: Comment on above: Pattern: Regular 09-08-2012 15:40-0500 Pulse Oximetry 97 % Sushma Ami [facility] Internal Medicine Work Phone: Comment on above: Room air 09-08-2012 15:40-0500 Respiratory Rate 16 /min Latasha Disla RN [facility] Medicine Work Phone: Comment on above: Pattern: Unlabored 09-08-2012 15:40-0500 SaO2% (BldA) [Mass fraction] 97 % Latasha Disla RN [facility] Internal Medicine Work Phone: 09-08-2012 15:40-0500 Weight 84.82 kg Sushma Valdessavanna [facility] Internal Medicine Work Phone: 02-16-2012 14:49-0400 BMI (Body Mass Index) 33.93 kg/m2 Nika Calhoun [facility] Internal Medicine Work Phone: 02-16-2012 14:49-0400 Body Temperature 97.4 [degF] Nika Ricketts [facility] Internal Medicine Work Phone: 02-16-2012 14:49-0400 Body weight 84.82 kg Nika Ricketts [facility] Internal Medicine Work Phone: 02-16-2012 14:49-0400 BP Diastolic 60 mm[Hg] Nika Ricketts [facility] Internal Medicine Work Phone: Comment on above: Patient Position: Sitting; Cuff Location : Left Arm; Cuff Size: Large 02-16-2012 14:49-0400 BP Systolic 114 mm[Hg] Nika Liliam [facility] Internal Medicine Work Phone: Comment on above: Patient Position: Sitting; Cuff Location : Left Arm; Cuff Size: Large 02-16-2012 14:49-0400 BSA (Body Surface Area) 1.86 m2 Nika Liliam [facility] Internal Medicine Work Phone: 02-16-2012 14:49-0400 Height 158.12 cm Nika Liliam [facility] Internal Medicine Work Phone: 02-16-2012 14:49-0400 Pulse (Heart Rate) 68 /min Nika Liliam [facility] Internal Medicine Work Phone: Comment on above: Pattern: Regular 02-16-2012 14:49-0400 Respiratory Rate 16 /min Nika Liliam [facility] Internal Medicine Work Phone: Comment on above: Pattern: Unlabored 02-16-2012 14:49-0400 Weight 84.82 kg Sushma Mueller [facility] Internal Medicine Work Phone: 11-05-2011 16:09-0500 BMI (Body Mass Index) 33.2 kg/m2 Nika Liliam [facility] Internal Medicine Work Phone: 11-05-2011 16:09-0500 Body Temperature 98.1 [degF] Nika Ricketts [facility] Internal Medicine Work Phone: 11-05-2011 16:09-0500 Body weight 83.01 kg Nika Liliam [facility] Internal Medicine Work Phone: 11-05-2011 16:09-0500 BP Diastolic 88 mm[Hg] Nika Liliam [facility] Internal Medicine Work Phone: Comment on above: Patient Position: Sitting; Cuff Location : Left Arm; Cuff Size: Large 11-05-2011 16:09-0500 BP Systolic 142 mm[Hg] Nika Ricketts [facility] Internal Medicine Work Phone: Comment on above: Patient Position: Sitting; Cuff Location : Left Arm; Cuff Size: Large 11-05-2011 16:09-0500 BSA (Body Surface Area) 1.85 m2 Nika Millslaila [facility] Internal Medicine Work Phone: 11-05-2011 16:09-0500 Height 158.12 cm Nika Liliam [facility] Internal Medicine Work Phone: 11-05-2011 16:09-0500 Pulse (Heart Rate) 72 /min [facility]ail[facility] Work Phone: Comment on above: Pattern: Regular 11-05-2011 16:09-0500 Respiratory Rate 16 /min Nika Liliam [facility] Internal Medicine Work Phone: Comment on above: Pattern: Unlabored 11-05-2011 16:09-0500 Weight 83.01 kg Sushma Mueller [facility] Internal Medicine Work Phone: 10-17-2011 11:39-0500 BMI (Body Mass Index) 33.93 kg/m2 Darling Mcleanjomar STEELE [facility] Internal Medicine Work Phone: 10-17-2011 11:39-0500 Body Temperature 98.3 [degF] Darling Mcleanjomar STEELE [facility] Internal Medicine Work Phone: Comment on above: Method: Oral 10-17-2011 11:39-0500 Body weight 84.82 kg Darling Boom STEELE [facility] Internal Medicine Work Phone: 10-17-2011 11:39-0500 BP Diastolic 82 mm[Hg] Darling Mcleanjomar STEELE [facility] Internal Medicine Work Phone: Comment on above: Patient Position: Sitting; Cuff Location : Left Arm; Cuff Size: Standard 10-17-2011 11:39-0500 BP Systolic 124 mm[Hg] Darling Nur IVETTE [facility] Internal Medicine Work Phone: Comment on above: Patient Position: Sitting; Cuff Location : Left Arm; Cuff Size: Standard 10-17-2011 11:39-0500 BSA (Body Surface Area) 1.86 m2 Darling Nur LPN [facility] Internal Medicine Work Phone: 10-17-2011 11:39-0500 Height 158.12 cm Darling Nur LPN [facility] Internal Medicine Work Phone: 10-17-2011 11:39-0500 Pulse (Heart Rate) 78 /min Darling Nur LPN [facility] Internal Medicine Work Phone: Comment on above: Pattern: Regular 10-17-2011 11:39-0500 Pulse Oximetry 97 % Sushma Mueller [facility] Internal Medicine Work Phone: Comment on above: Room air 10-17-2011 11:39-0500 Respiratory Rate 17 /min Darling Nur LPN [facility] Internal Medicine Work Phone: Comment on above: Pattern: Unlabored 10-17-2011 11:39-0500 SaO2% (BldA) [Mass fraction] 97 % [facility] Work Phone: 10-17-2011 11:39-0500 Weight 84.82 kg Sushma Mueller [facility] Internal Medicine Work Phone: 08-04-2011 11:31-0400 BMI (Body Mass Index) 33.93 kg/m2 Nika Ricketts [facility] Internal Medicine Work Phone: 08-04-2011 11:31-0400 Body Temperature 98.1 [degF] Nika Ricketts [facility] Internal Medicine Work Phone: 08-04-2011 11:31-0400 Body weight 84.82 kg Nika Ricketts [facility] Internal Medicine Work Phone: 08-04-2011 11:31-0400 BP Diastolic 70 mm[Hg] Nika Ricketts [facility] Internal Medicine Work Phone: Comment on above: Patient Position: Sitting; Cuff Location : Left Arm; Cuff Size: Large 08-04-2011 11:31-0400 BP Systolic 128 mm[Hg] Nika Ricketts [facility] Internal Medicine Work Phone: Comment on above: Patient Position: Sitting; Cuff Location : Left Arm; Cuff Size: Large 08-04-2011 11:31-0400 BSA (Body Surface Area) 1.86 m2 Nika Ricketts [facility] Internal Medicine Work Phone: 08-04-2011 11:31-0400 Height 158.12 cm Nika Ricketts [facility] Internal Medicine Work Phone: 08-04-2011 11:31-0400 Pulse (Heart Rate) 76 /min [facility]etts [facility] Work Phone: Comment on above: Pattern: Regular 08-04-2011 11:31-0400 Respiratory Rate 18 /min Nika Ricketts [facility] Internal Medicine Work Phone: Comment on above: Pattern: Unlabored 08-04-2011 11:31-0400 Weight 84.82 kg Sushma Mueller [facility] Internal Medicine Work Phone: 04-07-2011 11:06-0400 BMI (Body Mass Index) 34.11 kg/m2 Nika Ricketts [facility] Internal Medicine Work Phone: 04-07-2011 11:06-0400 Body Temperature 98.3 [degF] Nika Ricketts [facility] Internal Medicine Work Phone: 04-07-2011 11:06-0400 Body weight 85.28 kg Nika Ricketts [facility] Internal Medicine Work Phone: 04-07-2011 11:06-0400 BP Diastolic 52 mm[Hg] Nika Ricketts [facility] Internal Medicine Work Phone: Comment on above: Patient Position: Sitting; Cuff Location : Left Arm; Cuff Size: Large 04-07-2011 11:06-0400 BP Systolic 116 mm[Hg] Nika Ricketts [facility] Internal Medicine Work Phone: Comment on above: Patient Position: Sitting; Cuff Location : Left Arm; Cuff Size: Large 04-07-2011 11:06-0400 BSA (Body Surface Area) 1.87 m2 Nika Gloverjasper [facility] Internal Medicine Work Phone: 04-07-2011 11:06-0400 Height 158.12 cm Nika Ricketts [facility] Internal Medicine Work Phone: 04-07-2011 11:06-0400 Pulse (Heart Rate) 84 /min Nika Ricketts [facility] Internal Medicine Work Phone: Comment on above: Pattern: Regular 04-07-2011 11:06-0400 Respiratory Rate 16 /min Nika Ricketts [facility] Internal Medicine Work Phone: Comment on above: Pattern: Unlabored 04-07-2011 11:06-0400 Weight 85.28 kg Sushma Mueller [facility] Internal Medicine Work Phone: 10-08-2010 11:22-0500 Body Temperature 98.1 [degF] Nika Ricketts [facility] Internal Medicine Work Phone: 10-08-2010 11:22-0500 Body weight 83.46 kg Nika Ricketts [facility] Internal Medicine Work Phone: 10-08-2010 11:22-0500 BP Diastolic 74 mm[Hg] Nika Ricketts [facility] Internal Medicine Work Phone: Comment on above: Patient Position: Standing; Cuff Locatio n: Left Arm; Cuff Size: Large 10-08-2010 11:22-0500 BP Systolic 136 mm[Hg] Nika Ricketts [facility] Internal Medicine Work Phone: Comment on above: Patient Position: Standing; Cuff Locatio n: Left Arm; Cuff Size: Large 10-08-2010 11:22-0500 Pulse (Heart Rate) 72 /min Nika Ricketts [facility] Internal Medicine Work Phone: Comment on above: Pattern: Regular 10-08-2010 11:22-0500 Respiratory Rate 18 /min Nika Ricketts [facility] Internal Medicine Work Phone: Comment on above: Pattern: Unlabored 10-08-2010 11:22-0500 Weight 83.46 kg Sushma Mueller [facility] Internal Medicine Work Phone: 06-24-2010 16:24-0400 Body Temperature 97.5 [degF] Nika Ricketts [facility] Internal Medicine Work Phone: 06-24-2010 16:24-0400 Body weight 84.82 kg Nika Ricketts [facility] Internal Medicine Work Phone: 06-24-2010 16:24-0400 BP Diastolic 62 mm[Hg] Nika Ricketts [facility] Internal Medicine Work Phone: Comment on above: Patient Position: Sitting; Cuff Location : Left Arm; Cuff Size: Large 06-24-2010 16:24-0400 BP Systolic 124 mm[Hg] Nika Ricketts [facility] Internal Medicine Work Phone: Comment on above: Patient Position: Sitting; Cuff Location : Left Arm; Cuff Size: Large 06-24-2010 16:24-0400 Pulse (Heart Rate) 76 /min Nika Ricketts [facility] Internal Medicine Work Phone: Comment on above: Pattern: Regular 06-24-2010 16:24-0400 Respiratory Rate 18 /min Nika Ricketts [facility] Internal Medicine Work Phone: Comment on above: Pattern: Unlabored 06-24-2010 16:24-0400 Weight 84.82 kg Sushma Mueller [facility] Internal Medicine Work Phone: 04-23-2010 10:48-0400 BP Diastolic 52 mm[Hg] Nika Ricketts [facility] Internal Medicine Work Phone: Comment on above: Patient Position: Sitting; Cuff Location : Left Arm; Cuff Size: Standard 04-23-2010 10:48-0400 BP Systolic 96 mm[Hg] Nika Ricketts [facility] Internal Medicine Work Phone: Comment on above: Patient Position: Sitting; Cuff Location : Left Arm; Cuff Size: Standard 04-23-2010 10:48-0400 Pulse (Heart Rate) 80 /min Nika Gloverjasper [facility] Internal Medicine Work Phone: Comment on above: Pattern: Regular 04-23-2010 10:48-0400 Respiratory Rate 18 /min Nika Gloverjasper [facility] Internal Medicine Work Phone: Comment on above: Pattern: Unlabored 04-09-2010 14:36-0400 BMI (Body Mass Index) 35.4 kg/m2 Nika Ricketts [facility] Internal Medicine Work Phone: 04-09-2010 14:36-0400 Body weight 87.09 kg Nika Ricketts [facility] Internal Medicine Work Phone: 04-09-2010 14:36-0400 BP Diastolic 72 mm[Hg] Nika Ricketts [facility] Internal Medicine Work Phone: Comment on above: Patient Position: Sitting; Cuff Location : Right Arm; Cuff Size: Standard 04-09-2010 14:36-0400 BP Systolic 154 mm[Hg] Nika Ricketts [facility] Internal Medicine Work Phone: Comment on above: Patient Position: Sitting; Cuff Location : Right Arm; Cuff Size: Standard 04-09-2010 14:36-0400 BSA (Body Surface Area) 1.87 m2 Nika Millslaila [facility] Internal Medicine Work Phone: 04-09-2010 14:36-0400 Height 156.84 cm Nika Gloverjasper [facility] Internal Medicine Work Phone: 04-09-2010 14:36-0400 Pulse (Heart Rate) 80 /min Nika Ricketts Danielensiv [facility] Internal Medicine Work Phone: Comment on above: Pattern: Regular 04-09-2010 14:36-0400 Respiratory Rate 18 /min Nika Millslaila [facility] Internal Medicine Work Phone: Comment on above: Pattern: Unlabored 04-09-2010 14:36-0400 Weight 87.09 kg Sushma Mueller [facility] Internal Medicine Work Phone: 03-06-2010 09:33-0400 Body Temperature 98 [degF] Nika Ricketts [facility] Internal Medicine Work Phone: 03-06-2010 09:33-0400 BP Diastolic 80 mm[Hg] Nika Millslaila [facility] Internal Medicine Work Phone: Comment on above: Patient Position: Sitting; Cuff Location : Left Arm; Cuff Size: Standard 03-06-2010 09:33-0400 BP Systolic 148 mm[Hg] Nika Millsjostinjasper [facility] Internal Medicine Work Phone: Comment on above: Patient Position: Sitting; Cuff Location : Left Arm; Cuff Size: Standard 03-06-2010 09:33-0400 Pulse (Heart Rate) 80 /min Nika Gloverjasper [facility] Internal Medicine Work Phone: Comment on above: Pattern: Regular 03-06-2010 09:33-0400 Pulse Oximetry 96 % Sushma Mueller [facility] Internal Medicine Work Phone: Comment on above: Room air 03-06-2010 09:33-0400 Respiratory Rate 20 /min Nika Millslaila [facility] Internal Medicine Work Phone: Comment on above: Pattern: Unlabored 03-06-2010 09:33-0400 SaO2% (BldA) [Mass fraction] 96 % Nika Liliam [facility] Internal Medicine Work Phone: 01-16-2010 08:49-0400 Body Temperature 97.2 [degF] MAKENZIE Jon [facility] Internal Medicine Work Phone: Comment on above: Method: Oral 01-16-2010 08:49-0400 Body weight 78.47 kg MAKENZIEROBI Webb CHARGE AUDITOR [facility] Internal Medicine Work Phone: 01-16-2010 08:49-0400 BP Diastolic 78 mm[Hg] MAKENZIEROBI Webb [facility] Internal Medicine Work Phone: Comment on above: Patient Position: Sitting; Cuff Location : Left Arm; Cuff Size: Standard 01-16-2010 08:49-0400 BP Systolic 118 mm[Hg] MAKENZIE Webb CHARGE AUDITOR [facility] Internal Medicine Work Phone: Comment on above: Patient Position: Sitting; Cuff Location : Left Arm; Cuff Size: Standard 01-16-2010 08:49-0400 Pulse (Heart Rate) 70 /min MAKENZIEROBI Webb CHARGE AUDITOR [facility] Internal Medicine Work Phone: Comment on above: Pattern: Regular 01-16-2010 08:49-0400 Respiratory Rate 18 /min MAKENZIE Webb CHARGE AUDITOR [facility] Internal Medicine Work Phone: Comment on above: Pattern: Unlabored 01-16-2010 08:49-0400 Weight 78.47 kg Sushma Mueller [facility] Internal Medicine Work Phone: 09-27-2009 13:23-0500 BMI (Body Mass Index) 30.65 kg/m2 Darling Nur LPN [facility] Work Phone: 09-27-2009 13:23-0500 Body Temperature 97.9 [degF] Darling Nur LPN [facility] Work Phone: Comment on above: Method: Oral 09-27-2009 13:23-0500 Body weight 78.47 kg Darling Nur LPN [facility] Work Phone: 09-27-2009 13:23-0500 BP Diastolic 78 mm[Hg] Darling Nur LPN [facility] Work Phone: Comment on above: Patient Position: Sitting; Cuff Location : Left Arm; Cuff Size: Standard 09-27-2009 13:23-0500 BP Systolic 126 mm[Hg] Darling Nur LPN [facility] Work Phone: Comment on above: Patient Position: Sitting; Cuff Location : Left Arm; Cuff Size: Standard 09-27-2009 13:23-0500 BSA (Body Surface Area) 1.82 m2 Darling Nur LPN [facility] Work Phone: 09-27-2009 13:23-0500 Head Circumference 0 cm Sushma Mueller [facility] Internal Medicine Work Phone: 09-27-2009 13:23-0500 Head Occipital-frontal circumference 0 cm Darling Nur LPN [facility] Work Phone: 09-27-2009 13:23-0500 Height 160.02 cm Darling Nur LPN [facility] Work Phone: 09-27-2009 13:23-0500 Pulse (Heart Rate) 82 /min Darling Nur LPN [facility] Work Phone: Comment on above: Pattern: Regular 09-27-2009 13:23-0500 Pulse Oximetry 95 % Sushma Mueller [facility] Internal Medicine Work Phone: Comment on above: Room air 09-27-2009 13:23-0500 Respiratory Rate 17 /min Darling Nur LPN [facility] Internal Medicine Work Phone: Comment on above: Pattern: Unlabored 09-27-2009 13:23-0500 SaO2% (BldA) [Mass fraction] 95 % Darling Nur LPN [facility] Internal Medicine Work Phone: 09-27-2009 13:23-0500 Weight 78.47 kg Sushma Mueller [facility] Internal Medicine Work Phone: 08-15-2009 15:33-0500 BMI (Body Mass Index) 30.65 kg/m2 Zuleika Crocker [facility] Internal Medicine Work Phone: 08-15-2009 15:33-0500 Body Temperature 101 [degF] Zuleika [facility] Internal Medicine Work Phone: Comment on above: Method: Oral 08-15-2009 15:33-0500 Body weight 78.47 kg Zuleika [facility] Internal Medicine Work Phone: 08-15-2009 15:33-0500 BSA (Body Surface Area) 1.82 m2 Zuleika [facility] Internal Medicine Work Phone: 08-15-2009 15:33-0500 [facility] Work Phone: 08-15-2009 15:33-0500 Head Occipital-frontal circumference 0 cm Zuleika [facility] Internal Medicine Work Phone: 08-15-2009 15:33-0500 Height 160.02 cm Zuleika [facility] Internal Medicine Work Phone: 08-15-2009 15:33-0500 Pulse (Heart Rate) 100 /min Zuleika [facility] Internal Medicine Work Phone: Comment on above: Pattern: Regular 08-15-2009 15:33-0500 Respiratory Rate 16 /min Zuleika [facility] Internal Medicine Work Phone: Comment on above: Pattern: Unlabored 08-15-2009 15:33-0500 Weight 78.47 kg Sushma Mueller [facility] Internal Medicine Work Phone: 06-25-2009 13:57-0400 Body Temperature 99.7 [degF] Nika Ricketts [facility] Internal Medicine Work Phone: Comment on above: Method: Undefined 06-25-2009 13:57-0400 Body weight 0 kg Nika Ricketts [facility] Internal Medicine Work Phone: 06-25-2009 13:57-0400 BP Diastolic 74 mm[Hg] Nika Ricketts [facility] Internal Medicine Work Phone: Comment on above: Patient Position: Sitting; Cuff Location : Left Arm; Cuff Size: Standard 06-25-2009 13:57-0400 BP Systolic 126 mm[Hg] Nika Ricketts [facility] Internal Medicine Work Phone: Comment on above: Patient Position: Sitting; Cuff Location : Left Arm; Cuff Size: Standard 06-25-2009 13:57-0400 Head Circumference 0 cm Sushma Mueller [facility] Internal Medicine Work Phone: 06-25-2009 13:57-0400 Head Occipital-frontal circumference 0 cm Nika Ricketts [facility] Internal Medicine Work Phone: 06-25-2009 13:57-0400 Height 0 cm Nika Ricketts [facility] Internal Medicine Work Phone: 06-25-2009 13:57-0400 Pulse (Heart Rate) 84 /min Nika Ricketts [facility] Internal Medicine Work Phone: Comment on above: Pattern: Regular 06-25-2009 13:57-0400 Respiratory Rate 18 /min Nika Ricketts [facility] Internal Medicine Work Phone: Comment on above: Pattern: Undefined 06-25-2009 13:57-0400 Weight 0 kg Sushma Mueller [facility] Internal Medicine Work Phone: 04-25-2009 10:18-0400 BMI (Body Mass Index) 30.65 kg/m2 Zuleika Crocker [facility] Internal Medicine Work Phone: 04-25-2009 10:18-0400 Body weight 78.47 kg Zuleika [facility] Internal Medicine Work Phone: 04-25-2009 10:18-0400 BP Diastolic 78 mm[Hg] Zuleika [facility] Internal Medicine Work Phone: Comment on above: Patient Position: Supine; Cuff Location: Left Arm; Cuff Size: Standard 04-25-2009 10:18-0400 BP Systolic 136 mm[Hg] Zuleika [facility] Internal Medicine Work Phone: Comment on above: Patient Position: Supine; Cuff Location: Left Arm; Cuff Size: Standard 04-25-2009 10:18-0400 BSA (Body Surface Area) 1.82 m2 Zuleika [facility] Internal Medicine Work Phone: 04-25-2009 10:18-0400 Head Circum[facility] 0 [facility] Work Phone: 04-25-2009 10:18-0400 Head Occipital-frontal circumference 0 cm Zuleika [facility] Internal Medicine Work Phone: 04-25-2009 10:18-0400 Height 160.02 cm Zuleika [facility] Internal Medicine Work Phone: 04-25-2009 10:18-0400 Pulse (Heart Rate) 72 /min [facility] Medicine Work Phone: Comment on above: Pattern: Regular 04-25-2009 10:18-0400 Respiratory Rate 16 /min [facility] Medicine Work Phone: Comment on above: Pattern: Unlabored 04-25-2009 10:18-0400 Weight 78.47 kg Sushma Mueller [facility] Internal Medicine Work Phone: 01-24-2009 14:33-0400 Body Temperature 98.3 [degF] [facility] Internal Medicine Work Phone: Comment on above: Method: Undefined 01-24-2009 14:33-0400 Body weight 79.83 kg Nika Ricketts [facility] Internal Medicine Work Phone: 01-24-2009 14:33-0400 BP Diastolic 52 mm[Hg] Nika Ricketts [facility] Internal Medicine Work Phone: Comment on above: Patient Position: Sitting; Cuff Location : Right Arm; Cuff Size: Standard 01-24-2009 14:33-0400 BP Systolic 104 mm[Hg] Nika Ricketts [facility] Internal Medicine Work Phone: Comment on above: Patient Position: Sitting; Cuff Location : Right Arm; Cuff Size: Standard 01-24-2009 14:33-0400 Head Circumference 0 cm [facility] Internal Medicine Work Phone: 01-24-2009 14:33-0400 Head Occipital-frontal circumference 0 cm Nika Ricketts [facility] Internal Medicine Work Phone: 01-24-2009 14:33-0400 Height 0 cm Nika Ricketst [facility] Internal Medicine Work Phone: 01-24-2009 14:33-0400 Pulse (Heart Rate) 82 /min Nika Ricketts [facility] Internal Medicine Work Phone: Comment on above: Pattern: Regular 01-24-2009 14:33-0400 Respiratory Rate 18 /min Nika Ricketts [facility] Internal Medicine Work Phone: Comment on above: Pattern: Undefined 01-24-2009 14:33-0400 Weight 79.83 kg [facility] Internal [facility] Work Phone: 12-12-2008 13:20-0500 Body Temperature 98 [degF] Nika Ricketts [facility] Internal Medicine Work Phone: Comment on above: Method: Undefined 12-12-2008 13:20-0500 Body weight 0 kg Nika Ricketts [facility] Internal Medicine Work Phone: 12-12-2008 13:20-0500 BP Diastolic 74 mm[Hg] Nika Ricketts [facility] Internal Medicine Work Phone: Comment on above: Patient Position: Sitting; Cuff Location : Left Arm; Cuff Size: Large 12-12-2008 13:20-0500 BP Systolic 118 mm[Hg] Nika Ricketts [facility] Internal Medicine Work Phone: Comment on above: Patient Position: Sitting; Cuff Location : Left Arm; Cuff Size: Large 12-12-2008 13:20-0500 Head Circumference 0 cm [facility] Medicine Work Phone: 12-12-2008 13:20-0500 Head Occipital-frontal circumference 0 cm Nika Gloverjasper [facility] Internal Medicine Work Phone: 12-12-2008 13:20-0500 Height 0 cm Nika Liliam [facility] Internal Medicine Work Phone: 12-12-2008 13:20-0500 Pulse (Heart Rate) 84 /min Nika Ricketts [facility] Internal Medicine Work Phone: Comment on above: Pattern: Regular 12-12-2008 13:20-0500 Respiratory Rate 16 /min Nika Liliam [facility] Medicine Work Phone: Comment on above: Pattern: Undefined 12-12-2008 13:20-0500 Weight 0 kg [facility] Medicine Work Phone: 08-11-2008 11:24-0400 Body Temperature 99 [degF] [facility] Medicine Work Phone: Comment on above: Method: Oral 08-11-2008 11:24-0400 Body weight 0 kg [facility] Work Phone: 08-11-2008 11:24-0400 BP Diastolic 90 mm[Hg] [facility] Medicine Work Phone: Comment on above: Patient Position: Sitting; Cuff Location : Left Arm; Cuff Size: Large 08-11-2008 11:24-0400 BP Systolic 144 mm[Hg] [facility] Medicine Work Phone: Comment on above: Patient Position: Sitting; Cuff Location : Left Arm; Cuff Size: Large 08-11-2008 11:24-0400 Head Circumference 0 cm [facility] Medicine Work Phone: 08-11-2008 11:24-0400 Head Occipital-frontal circumference 0 cm [facility] Internal Medicine Work Phone: 08-11-2008 11:24-0400 Height 0 cm Danae [facility] Internal Medicine Work Phone: 08-11-2008 11:24-0400 Pulse (Heart Rate) 60 /min [facility] Medicine Work Phone: Comment on above: Pattern: Regular 08-11-2008 11:24-0400 Respiratory Rate 18 /min [facility] Medicine Work Phone: Comment on above: Pattern: Unlabored 08-11-2008 11:24-0400 Weight 0 kg Sushma Mueller [facility] Medicine Work Phone: 12-30-2007 08:010400 BMI (Body Mass Index) 33.02 kg/m2 Darling Nur CHARGE AUDITOR [facility] Internal Medicine Work Phone: 12-30-2007 08:0400 Body Temperature 99.3 [degF] Darling Nur IVETTE [facility] Internal Medicine Work Phone: Comment on above: Method: Oral 12-30-2007 08:0400 Body weight 82.56 kg Darling Nur CHARGE AUDITOR [facility] Internal Medicine Work Phone: 12-30-2007 08:0400 BP Diastolic 70 mm[Hg] Darling Nur CHARGE AUDITOR [facility] Internal Medicine Work Phone: Comment on above: Patient Position: Sitting; Cuff Location : Left Arm; Cuff Size: Standard 12-30-2007 08:010400 BP Systolic 132 mm[Hg] Darling Nur CHARGE AUDITOR [facility] Internal Medicine Work Phone: Comment on above: Patient Position: Sitting; Cuff Location : Left Arm; Cuff Size: Standard 12-30-2007 08:01-0400 BSA (Body Surface Area) 1.84 m2 Darling Nur IVETET [facility] Internal Medicine Work Phone: 12-30-2007 08:010400 Head Circumference 0 cm Sushma Mueller [facility] Medicine Work Phone: 12-30-2007 08:01-0400 Head Occipital-frontal circumference 0 cm Darling Nur IVETTE [facility] Internal Medicine Work Phone: 12-30-2007 08:01-0400 Height 158.12 cm Darling Nur [facility] Internal Medicine Work Phone: 12-30-2007 08:01-0400 Pulse (Heart Rate) 82 /min Darling Nur [facility] Internal Medicine Work Phone: Comment on above: Pattern: Regular 12-30-2007 08:01-0400 Respiratory Rate 17 /min Darling Nur [facility] Internal Medicine Work Phone: Comment on above: Pattern: Unlabored 12-30-2007 08:01-0400 [facility] 82.56 [facility]: 12-21-2007 15:26-0400 BMI (Body Mass Index) 33.02 kg/m2 Nika Ricketts [facility] Internal Medicine Work Phone: 12-21-2007 15:26-0400 Body Temperature 97.8 [degF] Nika Ricketts [facility] Internal Medicine Work Phone: Comment on above: Method: Undefined 12-21-2007 15:26-0400 Body weight 82.56 kg Nika Ricketts [facility] Internal Medicine Work Phone: 12-21-2007 15:26-0400 BP Diastolic 64 mm[Hg] [facility] Work Phone: Comment on above: Patient Position: Sitting; Cuff Location : Right Arm; Cuff Size: Standard 12-21-2007 15:26-0400 BP Systolic 120 mm[Hg] Nika Ricketts [facility] Internal Medicine Work Phone: Comment on above: Patient Position: Sitting; Cuff Location : Right Arm; Cuff Size: Standard 12-21-2007 15:26-0400 BSA (Body Surface Area) 1.84 m2 Nika Ricketts [facility] Internal Medicine Work Phone: 12-21-2007 15:26-0400 Head Circumference 0 [facility] Work Phone: 12-21-2007 15:26-0400 Head Occipital-frontal circumference 0 cm Nika Ricketts [facility] Internal Medicine Work Phone: 12-21-2007 15:26-0400 Height 158.12 cm Nika Ricketts [facility] Internal Medicine Work Phone: 12-21-2007 15:26-0400 Pulse (Heart Rate) 76 /min Nika Ricketts [facility] Internal Medicine Work Phone: Comment on above: Pattern: Regular 12-21-2007 15:26-0400 Respiratory Rate 16 /min Nika Ricketts [facility] Internal Medicine Work Phone: Comment on above: Pattern: Undefined 12-21-2007 15:26-0400 Weight 82.56 kg Sushma Mueller [facility] Internal Medicine Work Phone: 12-06-2007 16:12-0500 Body Temperature 99.1 [degF] Nika Ricketts [facility] Internal Medicine Work Phone: Comment on above: Method: Oral 12-06-2007 16:12-0500 Body weight 0 kg Nika Ricketts [facility] Internal Medicine Work Phone: 12-06-2007 16:12-0500 BP Diastolic 70 mm[Hg] Nika Ricketts [facility] Internal Medicine Work Phone: Comment on above: Patient Position: Sitting; Cuff Location : Right Arm; Cuff Size: Standard 12-06-2007 16:12-0500 BP Systolic 140 mm[Hg] Nika Ricketts [facility] Internal Medicine Work Phone: Comment on above: Patient Position: Sitting; Cuff Location : Right Arm; Cuff Size: Standard 12-06-2007 16:12-0500 Head Circumference 0 cm Sushma Mueller [facility] Internal Medicine Work Phone: 12-06-2007 16:12-0500 Head Occipital-frontal circumference 0 cm Nika Ricketts [facility] Internal Medicine Work Phone: 12-06-2007 16:12-0500 Height 0 cm Nika Ricketts [facility] Internal Medicine Work Phone: 12-06-2007 16:12-0500 Pulse (Heart Rate) 88 /min Nika Ricketts [facility] Internal Medicine Work Phone: Comment on above: Pattern: Regular 12-06-2007 16:12-0500 Respiratory Rate 16 /min Nika Gloverjasper [facility] Internal Medicine Work Phone: Comment on above: Pattern: Unlabored 12-06-2007 16:12-0500 Weight 0 kg Sushma Mueller [facility] Internal Medicine Work Phone: 09-07-2007 15:58-0500 BMI (Body Mass Index) 32.35 kg/m2 Darling Nur LPN [facility] Internal Medicine Work Phone: 09-07-2007 15:58-0500 Body Temperature 98.4 [degF] Darling Nur LPN [facility] Internal Medicine Work Phone: Comment on above: Method: Oral 09-07-2007 15:58-0500 Body weight 80.88 kg Darling Nur LPN [facility] Internal Medicine Work Phone: 09-07-2007 15:58-0500 BP Diastolic 70 mm[Hg] Darling Nur LPN [facility] Internal Medicine Work Phone: Comment on above: Patient Position: Sitting; Cuff Location : Left Arm; Cuff Size: Standard 09-07-2007 15:58-0500 BP Systolic 128 mm[Hg] Darling Nur LPN [facility] Internal Medicine Work Phone: Comment on above: Patient Position: Sitting; Cuff Location : Left Arm; Cuff Size: Standard 09-07-2007 15:58-0500 BSA (Body Surface Area) 1.83 m2 Darling Nur LPN [facility] Internal Medicine Work Phone: 09-07-2007 15:58-0500 Head Circumference 0 cm Sushma Mueller [facility] Internal Medicine Work Phone: 09-07-2007 15:58-0500 Head Occipital-frontal circumference 0 cm Darling Nur LPN [facility] Internal Medicine Work Phone: 09-07-2007 15:58-0500 Height 158.12 cm Darling Nur LPN [facility] Internal Medicine Work Phone: 09-07-2007 15:58-0500 Pulse (Heart Rate) 74 /min Darling Nur LPN [facility] Work Phone: Comment on above: Pattern: Regular 09-07-2007 15:58-0500 Respiratory Rate 16 /min Darling Nur LPN [facility] Work Phone: Comment on above: Pattern: Unlabored 09-07-2007 15:58-0500 Weight 80.88 kg Sushma Mueller [facility] Internal Medicine Work Phone: 08-30-2007 [...] [facility] Work Phone: 08-30-2007 14:51-0500 Head Circumference 0 cm Sushma Mueller [facility] Internal Medicine Work Phone: 08-30-2007 14:51-0500 Head Occipital-frontal circumference 0 cm Darling Nur LPN [facility] Work Phone: 08-30-2007 14:51-0500 Height 158.12 cm Darling Nur [facility] Internal Medicine Work Phone: 08-30-2007 14:51-0500 Pulse (Heart Rate) 82 /min Darling Nur [facility] Internal Medicine Work Phone: Comment on above: Pattern: Regular 08-30-2007 14:51-0500 Respiratory Rate 17 /min Darling Nur [facility] Internal Medicine Work Phone: Comment on above: Pattern: Unlabored 08-30-2007 14:51-0500 [facility] 80.[facility] Work Phone: 07-05-2007 16:07-0400 BMI (Body Mass Index) 32.35 kg/m2 Nika Liliam [facility] Internal Medicine Work Phone: 07-05-2007 16:07-0400 Body Temperature 97.9 [degF] Nika Ricketts [facility] Internal Medicine Work Phone: Comment on above: Method: Oral 07-05-2007 16:07-0400 Body weight 80.88 kg Nika Liliam [facility] Internal Medicine Work Phone: 07-05-2007 16:07-0400 BP Diastolic 66 mm[Hg] Nika Liliam [facility] Internal Medicine Work Phone: Comment on above: Patient Position: Sitting; Cuff Location : Right Arm; Cuff Size: Standard 07-05-2007 16:07-0400 BP Systolic 134 mm[Hg] Nika Ricketts [facility] Internal Medicine Work Phone: Comment on above: Patient Position: Sitting; Cuff Location : Right Arm; Cuff Size: Standard 07-05-2007 16:07-0400 BSA (Body Surface Area) 1.83 m2 Nika Ricketts [facility] Internal Medicine Work Phone: 07-05-2007 16:07-0400 Head Circum[facility] 0 [facility]: 07-05-2007 16:07-0400 Head Occipital-frontal circumference 0 cm Nika Ricketts [facility] Internal Medicine Work Phone: 07-05-2007 16:07-0400 Height 158.12 cm Nika Ricketts [facility] Internal Medicine Work Phone: 07-05-2007 16:07-0400 Pulse (Heart Rate) 84 /min Nika Ricketts [facility] Work Phone: Comment on above: Pattern: Regular 07-05-2007 16:07-0400 Respiratory Rate 16 /min Nika Ricketts [facility] Internal Medicine Work Phone: Comment on above: Pattern: Unlabored 07-05-2007 16:07-0400 Weight 80.88 kg Sushma Mueller [facility] Internal Medicine Work Phone: 02-10-2007 10:25-0400 Body Temperature 98 [degF] Nika Ricketts [facility] Internal Medicine Work Phone: Comment on above: Method: Oral 02-10-2007 10:25-0400 Body weight 76.2 kg Nika Ricketts [facility] Internal Medicine Work Phone: 02-10-2007 10:25-0400 BP Diastolic 82 mm[Hg] Nika Ricketts [facility] Internal Medicine Work Phone: Comment on above: Patient Position: Sitting; Cuff Location : Left Arm; Cuff Size: Large 02-10-2007 10:25-0400 BP Systolic 144 mm[Hg] Nika Ricketts [facility] Internal Medicine Work Phone: Comment on above: Patient Position: Sitting; Cuff Location : Left Arm; Cuff Size: Large 02-10-2007 10:25-0400 Head Circumference 0 cm Sushma Mueller [facility] Internal Medicine Work Phone: 02-10-2007 10:25-0400 Head Occipital-frontal circumference 0 cm Nika Ricketts [facility] Internal Medicine Work Phone: 02-10-2007 10:25-0400 Height 0 cm Nika Ricketts [facility] Internal Medicine Work Phone: 02-10-2007 10:25-0400 Pulse (Heart Rate) 72 /min Nika Ricketts [facility] Medicine Work Phone: Comment on above: Pattern: Regular 02-10-2007 10:25-0400 Respiratory Rate 16 /min Nika Ricketts [facility] Internal Medicine Work Phone: Comment on above: Pattern: Unlabored 02-10-2007 10:25-0400 Weight 76.2 kg Sushma Mueller [facility] Internal Medicine Work Phone: 12-22-2006 15:30-0400 Body Temperature 97.7 [degF] Nika Ricketts [facility] Internal Medicine Work Phone: Comment on above: Method: Oral 12-22-2006 15:30-0400 Body weight 75.84 kg Nika Ricketts [facility] Internal Medicine Work Phone: 12-22-2006 15:30-0400 BP Diastolic 82 mm[Hg] Nika Ricketts [facility] Internal Medicine Work Phone: Comment on above: Patient Position: Sitting; Cuff Location : Left Arm; Cuff Size: Standard 12-22-2006 15:30-0400 BP Systolic 136 mm[Hg] Nika Ricketts [facility] Internal Medicine Work Phone: Comment on above: Patient Position: Sitting; Cuff Location : Left Arm; Cuff Size: Standard 12-22-2006 15:30-0400 Head Circumference 0 cm Sushma Mueller [facility] Internal Medicine Work Phone: 12-22-2006 15:30-0400 Head Occipital-frontal circumference 0 cm Nika Ricketts [facility] Internal Medicine Work Phone: 12-22-2006 15:30-0400 Height 0 cm Nika Ricketts [facility] Internal Medicine Work Phone: 12-22-2006 15:30-0400 Pulse (Heart Rate) 72 /min [facility] Work Phone: Comment on above: Pattern: Regular 12-22-2006 15:30-0400 Respiratory Rate 16 /min Nika Ricketts [facility] Internal Medicine Work Phone: Comment on above: Pattern: Unlabored 12-22-2006 15:30-0400 Weight 75.84 kg Sushma Salcedo Internal Medicine Work Phone: 08-25-2006 15:32-0500 Body Temperature 98 [degF] MAKENZIE Webb LPN [facility] Work Phone: Comment on above: Method: Oral 08-25-2006 15:32-0500 Body weight 75.32 kg MAKENZIE Webb LPN [facility] Work Phone: 08-25-2006 15:32-0500 BP Diastolic 82 mm[Hg] MAKENZIE Webb LPN [facility] Work Phone: Comment on above: Patient Position: Sitting; Cuff Location : Left Arm; Cuff Size: Standard 08-25-2006 15:32-0500 BP Systolic 124 mm[Hg] MAKENZIE Webb LPN [facility] Work Phone: Comment on above: Patient Position: Sitting; Cuff Location : Left Arm; Cuff Size: Standard 08-25-2006 15:32-0500 Head Circumference 0 cm Sushma Mueller [facility] Internal Medicine Work Phone: 08-25-2006 15:32-0500 Head Occipital-frontal circumference 0 cm MAKENZIE Webb LPN [facility] Work Phone: 08-25-2006 15:32-0500 Height 0 cm MAKENZIE Webb LPN [facility] Work Phone: 08-25-2006 15:32-0500 Pulse (Heart Rate) 66 /min MAKENZIE Webb LPN [facility] Work Phone: Comment on above: Pattern: Regular 08-25-2006 15:32-0500 Respiratory Rate 18 /min MAKENZIE Webb LPN [facility] Work Phone: Comment on above: Pattern: Unlabored 08-25-2006 15:32-0500 Weight 75.32 kg Sushma Mueller [facility] Internal Medicine Work Phone: Encounters Encounter Date Encounter Type Care Provider Facility Start: 01-16-2025 End: 01-16-2025 ambulatory Aurelio Bertrand Facility:[facility] Start: 01-04-2025 End: 01-04-2025 ambulatory Cindy HANSON Work Phone: [facility] Work Phone: Start: 01-04-2025 End: 01-04-[address] Edvin Armijo MD -Physical Therapy Work Phone: Start: 11-07-2024 End: 11-07-2024 ambulatory Edvin Armijo Facility:[facility] Start: 11-07-2024 End: 11-07-[address] Edvin Armijo MD -[facility] Work Phone: Start: 11-07-2024 End: 11-07-2024 ambulatory Edvin Armijo Facility:[facility] Start: 10-17-2024 End: 10-17-2024 ambulatory Cindy Mcpherson Facility:[facility] Start: 10-17-2024 End: 10-17-2024 Discharged Recurring Cindy Mcpherson LEAD ING[employer] MOLDER-C -Physical Therapy Work Phone: Start: 09-07-2024 End: 09-07-2024 ambulatory Cindy Mcpherson Facility:[facility] Start: 09-04-2024 End: 09-04-2024 ambulatory Cindycrystal Mcpherson Facility:[facility] Start: 08-16-2024 End: 08-16-2024 ambulatory Cindy Ky Facility:[facility] Start: 08-06-2024 End: 08-06-2024 ambulatory Cindy Mcpherson Facility:[facility] Start: 06-21-2024 End: 06-21-2024 ambulatory Cindy Mcpherson Facility:[facility] Start: 06-21-2024 End: 06-21-2024 ambulatory Cindy Mcpherson Facility:[facility] Start: 05-18-2024 End: 05-18-2024 ambulatory Cindycrystal Mcpherson Facility:[facility] Start: 02-09-2024 End: 02-09-2024 ambulatory MARICRUZ ARMSTRONG Facility:[facility] Start: 02-09-2024 End: 02-09-2024 Patient encounter procedure Maricruz Armstrong DO Work Phone: Vascular Surgery Comment on above: Bilateral carotid ar elton stenosis (Primary Dx) Start: 12-24-2023 End: 12-24-2023 ambulatory LEAD [employer]-C Cindycrystal Mcpherson Work Phone: [facility] Work Phone: Start: 12-24-2023 End: 12-24-2023 Patient encounter procedure LEAD [employer]-C Cindy Mcpherson Work Phone: [facility]-Laboratory Work Phone: Start: 12-23-2023 Telephone encounter Lindsey Shultz MD Work Phone: [facility] Comment on above: Appointment (Appoint ment) Start: 12-22-2023 End: 12-22-2023 ambulatory CINDY MCPHERSON Facility:[facility] Start: 12-21-2023 End: 12-21-2023 Patient encounter procedure LEAD [employer] M[employer]DER-C Cindy Yk Work Phone: [facility] Work Phone: Start: 08-21-2023 End: 08-21-[address] DAMIAN HARTMANN MD Facility:[facility] Start: 08-21-2023 End: 08-21-[address] DAMIAN HARTMANN MD [facility] Start: 05-15-2023 End: 05-15-2023 ambulatory LEAD [employer]-C Cindy Ky Work Phone: [facility] Work Phone: Start: 05-15-2023 End: 05-15-2023 Patient encounter procedure LEAD INGOT MOLDER-Bijan Ruckercrystal Mcpherson Work Phone: [facility]-Outpatient Breast Imaging Work Phone: Start: 04-30-2023 End: 04-30-2023 Sushma Mueller Work Phone: [facility] Start: 02-24-2023 End: 02-24-2023 Patient encounter procedure LEAD ING[employer] MOLDER-Bijan Ruckercrystal Mcpherson Work Phone: [facility]-Laboratory Work Phone: Start: 05-05-2023 ambulatory Sushma valdes Internal Med Start: 02-13-2023 End: 02-23-2023 Office outpatient visit 15 minutes Sushma Mueller Work Phone: [facility] Start: 02-13-2023 Sushma Valdesa Work Phone: [facility] Start: 02-03-2023 End: 02-03-2023 Patient encounter procedure LEAD [employer] M[employer]-C Cindy Mcpherson Work Phone: [facility] Neurology Work Phone: Start: 12-22-2022 Telephone encounter Viola Jillian tthews GENERAL OFFICE ASSOCIATE.PAID SEARCH MARKETING STRATEGIST Work Phone: [facility] Comment on above: Results Start: 12-17-2022 Telephone encounter Lindsey Shultz MD Work Phone: [facility] Comment on above: Patient Question (Te sting Reults) Start: 08-29-2022 End: 09-12-2022 Office outpatient visit 15 minutes Sushma Mueller Work Phone: [facility] Start: 08-29-2022 Sushma Mueller Work Phone: [facility] Start: 07-22-2022 End: 07-22-2022 ambulatory LEAD [employer] M[employer]-C Sushma Mueller LEAD INGOT MOLDER Work Phone: [facility] Work Phone: Start: 07-22-2022 End: 07-22-2022 Patient encounter procedure LEAD IN[employer] MOLDER-C Sushma Mueller LEAD INGOT MOLDER Work Phone: [facility]-Laboratory Start: 05-12-2022 End: 05-12-2022 Patient encounter procedure LEAD IN[employer] MOLDER-C Sushma Valdesa LEAD INGOT MOLDER Work Phone: [facility]-Outpatient Breast Imaging Start: 05-06-2022 End: 05-06-2022 Patient encounter procedure LEAD IN[employer] M[employer]DER-C Sushma Valdesa LEAD INGOT MOLDER Work Phone: [facility] Start: 05-06-2022 End: 05-06-2022 Patient encounter procedure LEAD IN[employer] MOLDER-C Sushma Ciesa LEAD INGOT MOLDER Work Phone: [facility] Neurology Start: 04-30-2022 End: 04-30-2022 Office outpatient visit 10 minutes Sushma Ciesa Work Phone: [facility] Start: 04-28-2022 End: 04-28-2022 Office outpatient visit 15 minutes Sushma Ciesa Work Phone: [facility] Start: 01-09-2022 End: 01-09-2022 Patient encounter procedure Maikel Avila MD Work Phone: [facility] Comment on above: Carotid stenosis, as ymptomatic, bilateral (Primary Dx) Start: 12-02-2021 End: 12-02-2021 Office outpatient visit 25 minutes Sushma Cijesseniaa Work Phone: [facility] Start: 12-02-2021 Sushma Ciesa PAID SEARCH MARKETING STRATEGIST Work Phone: [facility] Start: 10-08-2021 End: 10-09-2021 Office outpatient visit 10 minutes Sushma Ciesa PAID SEARCH MARKETING STRATEGIST Work Phone: [facility] Start: 08-26-2021 End: 08-26-2021 Sushma Ciesa PAID SEARCH MARKETING STRATEGIST Work Phone: [facility] Start: 08-19-2021 End: 08-19-2021 Sushma Ciesa PAID SEARCH MARKETING STRATEGIST Work Phone: [facility] Start: 08-16-2021 End: 08-16-2021 Office outpatient visit 15 minutes Sushma Ciesa PAID SEARCH MARKETING STRATEGIST Work Phone: [facility] Start: 08-13-2021 End: 08-13-2021 Office outpatient visit 15 minutes Sushma Ciesa PAID SEARCH MARKETING STRATEGIST Work Phone: [facility] Start: 04-29-2021 End: 04-29-2021 Office outpatient visit 25 minutes Sushma Ciesa PAID SEARCH MARKETING STRATEGIST Work Phone: [facility] Start: 04-17-2021 End: 04-17-2021 Sushma Ciesa PAID SEARCH MARKETING STRATEGIST Work Phone: [facility] Start: 10-30-2020 [...] 01-11-2020 End: 01-11-2020 Annotation/Addendum Sushma [facility] Start: 01-11-2020 End: 01-11-2020 Sushma Mueller PAID SEARCH MARKETING STRATEGIST Work Phone: [facility] Start: 11-18-2019 End: 11-18-2019 Annotation/Addendum Sushma [facility] Start: 11-18-2019 End: 11-18-2019 Sushma Mueller PAID SEARCH MARKETING STRATEGIST Work Phone: [facility] Start: 11-09-2019 End: 11-09-2019 Annotation/Addendum Sushma Mueller [facility] Start: 11-09-2019 End: 11-09-2019 Sushma Mueller PAID SEARCH MARKETING STRATEGIST Work Phone: [facility] Start: 10-14-2019 End: 10-14-2019 Office outpatient visit 25 minutes Sushma Mueller [facility] Start: 08-22-2019 End: 08-22-2019 Annotation/Addendum Sushma Mueller [facility] Start: 08-22-2019 End: 08-22-2019 Sushma Mueller PAID SEARCH MARKETING STRATEGIST Work Phone: [facility] Start: 08-15-2019 End: 08-15-2019 Office outpatient visit 15 minutes Sushma Mueller [facility] Start: 08-08-2019 End: 08-09-2019 Annotation/Addendum Sushma Mueller [facility] Start: 08-08-2019 Review Sushma Mueller [facility] Start: 08-08-2019 End: 08-09-2019 Sushma Mueller PAID SEARCH MARKETING STRATEGIST Work Phone: [facility] Start: 07-14-2019 Review Sushma Mueller [facility] Start: 07-14-2019 End: 07-14-2019 Annotation/Addendum Sushma Mueller [facility] Start: 07-14-2019 End: 07-14-2019 Sushma Mueller PAID SEARCH MARKETING STRATEGIST Work Phone: [facility] Start: 07-13-2019 End: 07-13-2019 Office outpatient visit 25 minutes Sushma Mueller [facility] Start: 04-25-2019 End: 04-25-2019 Annotation/Addendum Sushma Mueller [facility] Start: 04-25-2019 End: 04-25-2019 Sushma Mueller PAID SEARCH MARKETING STRATEGIST Work Phone: [facility] Start: 01-25-2019 End: 01-25-2019 Office outpatient visit 15 minutes Sushma Mueller [facility] Start: 06-17-2018 End: 06-17-2018 Office outpatient visit 5 minutes Sushma [facility] Start: 04-21-2018 End: 04-21-2018 Annotation/Addendum Sushma Mueller [facility] Start: 04-21-2018 End: 04-21-2018 Sushma Mueller PAID SEARCH MARKETING STRATEGIST Work Phone: [facility] Start: 08-21-2017 End: 08-21-2017 Office outpatient visit 15 minutes Sushma Mueller [facility] Start: 07-27-2017 End: 07-27-2017 Office outpatient visit 25 minutes Sushma Mueller [facility] Start: 06-26-2017 End: 06-26-2017 Office outpatient visit 5 minutes Sushma Mueller [facility] Start: 04-27-2017 End: 04-27-2017 Phone Encounter Sushma Mueller [facility] Start: 04-27-2017 End: 04-27-2017 Sushma Mueller PAID SEARCH MARKETING STRATEGIST Work Phone: [facility] Start: 04-27-2017 End: 04-27-2017 Annotation/Addendum Sushma Mueller [facility] Start: 04-27-2017 End: 04-27-2017 Sushma Mueller PAID SEARCH MARKETING STRATEGIST Work Phone: [facility] Start: 11-13-2016 End: 11-13-2016 Patient encounter procedure Sushma Mueller [facility] Start: 11-13-2016 End: 11-13-2016 Sushma Mueller PAID SEARCH MARKETING STRATEGIST Work Phone: [facility] Start: 10-20-2016 End: 10-20-2016 Office outpatient visit 15 minutes Sushma Mueller [facility] Start: 08-07-2016 End: 08-07-2016 Patient encounter procedure Sushma Mueller [facility] Start: 08-07-2016 End: 08-07-2016 Sushma Mueller PAID SEARCH MARKETING STRATEGIST Work Phone: [facility] Start: 07-09-2016 End: 07-14-2016 Nursing evaluation of patient and report Sushma Mueller [facility] Start: 07-09-2016 End: 07-14-2016 Sushma Mueller PAID SEARCH MARKETING STRATEGIST Work Phone: [facility] Start: 05-13-2016 End: 05-13-2016 Patient encounter procedure Sushma Mueller [facility] Start: 05-13-2016 End: 05-13-2016 Patient encounter status Sushma Mueller Work Phone: [facility] Start: 05-13-2016 End: 05-13-2016 Sushma Mueller PAID SEARCH MARKETING STRATEGIST Work Phone: [facility] Start: 04-07-2016 End: 04-07-2016 Phone Encounter Sushma Mueller [facility] Start: 04-07-2016 End: 04-07-2016 Sushma Mueller PAID SEARCH MARKETING STRATEGIST Work Phone: [facility] Start: 03-05-2016 End: 03-05-2016 Office outpatient visit 25 minutes Sushma Mueller [facility] Start: 12-03-2015 End: 12-03-2015 Office outpatient visit 15 minutes Sushma Keishasavanna [facility] Start: 05-14-2015 End: 05-14-2015 Office outpatient visit 25 minutes Sushma Valdessavanna [facility] Start: 04-04-2015 End: 04-05-2015 Office outpatient visit 25 minutes Sushma Mueller [facility] Start: 03-22-2014 End: 03-22-2014 Phone Encounter Sushma Mueller [facility] Start: 03-22-2014 End: 03-22-2014 Sushma Mueller PAID SEARCH MARKETING STRATEGIST Work Phone: [facility] Start: 04-25-2013 End: 04-25-2013 Patient encounter procedure Sushma Valdessavanna [facility] Start: 04-25-2013 End: 04-25-2013 Sushma Mueller PAID SEARCH MARKETING STRATEGIST Work Phone: [facility] Start: 04-18-2013 End: 04-18-2013 Patient encounter procedure Sushma Mueller [facility] Start: 04-18-2013 End: 04-18-2013 Preprocedural examination done Sushma Mueller Work Phone: [facility] Start: 04-18-2013 End: 04-18-2013 Sushma Mueller PAID SEARCH MARKETING STRATEGIST Work Phone: [facility] Start: 03-22-2013 End: 03-22-2013 Patient encounter procedure Sushma Mueller [facility] Start: 03-22-2013 End: 03-22-2013 Sushma Mueller PAID SEARCH MARKETING STRATEGIST Work Phone: [facility] Start: 01-17-2013 End: 01-17-2013 Patient encounter procedure Sushma Mueller [facility] Start: 01-17-2013 End: 01-17-2013 Sushma Mueller PAID SEARCH MARKETING STRATEGIST Work Phone: [facility] Start: 01-12-2013 End: 01-12-2013 Lab Order Sushma Mueller [facility] Start: 01-12-2013 End: 01-12-2013 Sushma Mueller PAID SEARCH MARKETING STRATEGIST Work Phone: [facility] Start: 01-04-2013 End: 01-04-2013 Annotation/Addendum Sushma Mueller [facility] Start: 01-04-2013 End: 01-04-2013 Sushma Mueller PAID SEARCH MARKETING STRATEGIST Work Phone: [facility] Start: 01-04-2013 End: 01-04-2013 Phone Encounter Sushma Mueller [facility] Start: 01-04-2013 End: 01-04-2013 Sushma Mueller PAID SEARCH MARKETING STRATEGIST Work Phone: [facility] Start: 12-29-2012 End: 12-29-2012 Phone Encounter Sushma Mueller [facility] Start: 12-29-2012 End: 12-29-2012 Sushma Mueller PAID SEARCH MARKETING STRATEGIST Work Phone: [facility] Start: 12-27-2012 End: 12-27-2012 Phone Encounter Sushma Mueller [facility] Start: 12-27-2012 End: 12-27-2012 Sushma Mueller PAID SEARCH MARKETING STRATEGIST Work Phone: [facility] Start: 12-24-2012 End: 12-26-2012 Patient encounter procedure Sushma Mueller [facility] Start: 12-24-2012 End: 12-26-2012 Preprocedural examination done Sushma Mueller Work Phone: [facility] Start: 12-24-2012 End: 12-26-2012 Sushma Mueller PAID SEARCH MARKETING STRATEGIST Work Phone: [facility] Start: 09-27-2012 End: 09-27-2012 Patient encounter procedure Sushma Mueller [facility] Start: 09-27-2012 End: 09-27-2012 Sushma Mueller PAID SEARCH MARKETING STRATEGIST Work Phone: [facility] Start: 09-16-2012 End: 09-16-2012 Phone Encounter Sushma Mueller [facility] Start: 09-16-2012 End: 09-16-2012 Sushma Mueller PAID SEARCH MARKETING STRATEGIST Work Phone: [facility] Start: 09-08-2012 End: 09-09-2012 Patient encounter procedure Sushma Mueller [facility] Start: 09-08-2012 End: 09-09-2012 Sushma Mueller PAID SEARCH MARKETING STRATEGIST Work Phone: [facility] Start: 02-16-2012 End: 02-16-2012 Patient encounter procedure Sushma Mueller [facility] Start: 02-16-2012 End: 02-16-2012 Sushma Mueller PAID SEARCH MARKETING STRATEGIST Work Phone: [facility] Start: 11-05-2011 End: 11-06-2011 Patient encounter procedure Sushma Mueller [facility] Start: 11-05-2011 End: 11-06-2011 Sushma Mueller PAID SEARCH MARKETING STRATEGIST Work Phone: [facility] Start: 10-17-2011 End: 10-17-2011 Office outpatient visit 25 minutes Sushma Mueller [facility] Start: 08-04-2011 End: 08-04-2011 Patient encounter procedure Sushma Mueller [facility] Start: 08-04-2011 End: 08-04-2011 Sushma Mueller PAID SEARCH MARKETING STRATEGIST Work Phone: [facility] Start: 04-07-2011 End: 04-07-2011 Patient encounter procedure Sushma Mueller [facility] Start: 04-07-2011 End: 04-07-2011 Sushma Mueller CNP Work Phone: [facility] Start: 10-08-2010 End: 10-08-2010 Patient encounter procedure Sushma Mueller [facility] Start: 10-08-2010 End: 10-08-2010 Sushma Mueller CNP Work Phone: [facility] Start: 06-24-2010 End: 06-24-2010 Patient encounter procedure Sushma Mueller [facility] Start: 06-24-2010 End: 06-24-2010 Sushma Mueller PAID SEARCH MARKETING STRATEGIST Work Phone: [facility] Start: 04-23-2010 End: 04-23-2010 Patient encounter procedure Sushma Mueller [facility] Start: 04-23-2010 End: 04-23-2010 Sushma Mueller PAID SEARCH MARKETING STRATEGIST Work Phone: [facility] Start: 04-09-2010 End: 04-09-2010 Patient encounter procedure Sushma Mueller [facility] Start: 04-09-2010 End: 04-09-2010 Sushma Mueller PAID SEARCH MARKETING STRATEGIST Work Phone: [facility] Start: 04-09-2010 End: 04-09-2010 Patient encounter procedure Sushma Mueller [facility] Start: 04-09-2010 End: 04-09-2010 Sushma Mueller CNP Work Phone: [facility] Start: 03-06-2010 End: 03-06-2010 Patient encounter procedure Sushma Mueller [facility] Start: 03-06-2010 End: 03-06-2010 Sushma Mueller CNP Work Phone: [facility] Start: 01-16-2010 [...] Medicine Start: 06-25-2009 End: 06-29-2009 Sushma Mueller CNP Work Phone: [facility] Start: 04-25-2009 End: 04-26-2009 Patient encounter procedure Sushma Mueller [facility] Start: 04-25-2009 End: 04-26-2009 Sushma Mueller PAID SEARCH MARKETING STRATEGIST Work Phone: [facility] Start: 01-24-2009 End: 01-24-2009 Patient encounter procedure Sushma Mueller [facility] Start: 01-24-2009 End: 01-24-2009 Sushma Mueller PAID SEARCH MARKETING STRATEGIST Work Phone: [facility] Start: 12-29-2008 End: 12-29-2008 Historical Summary Sushma Mueller [facility] Start: 12-29-2008 End: 12-29-2008 Sushma Mueller PAID SEARCH MARKETING STRATEGIST Work Phone: [facility] Start: 12-12-2008 End: 12-12-2008 Patient encounter procedure Sushma Mueller [facility] Start: 12-12-2008 End: 12-12-2008 Sushma Mueller PAID SEARCH MARKETING STRATEGIST Work Phone: [facility] Start: 11-01-2008 End: 11-01-2008 Historical Summary Sushma Mueller [facility] Start: 11-01-2008 End: 11-01-2008 Sushma Mueller PAID SEARCH MARKETING STRATEGIST Work Phone: [facility] Start: 08-11-2008 End: 08-11-2008 Patient encounter procedure Sushma Mueller [facility] Start: 08-11-2008 End: 08-11-2008 Sushma Mueller PAID SEARCH MARKETING STRATEGIST Work Phone: [facility] Start: 01-03-2008 End: 01-03-2008 Annotation/Addendum Sushma Mueller [facility] Start: 01-03-2008 End: 01-03-2008 Sushma Mueller PAID SEARCH MARKETING STRATEGIST Work Phone: [facility] Start: 12-30-2007 End: 12-30-2007 Office outpatient visit 25 minutes Sushma Mueller [facility] Start: 12-21-2007 End: 12-21-2007 Patient encounter procedure Sushma Mueller [facility] Start: 12-21-2007 End: 12-21-2007 Sushma Mueller PAID SEARCH MARKETING STRATEGIST Work Phone: [facility] Start: 12-06-2007 End: 12-06-2007 Patient encounter procedure Sushma Mueller [facility] Start: 12-06-2007 End: 12-06-2007 Sushma Mueller PAID SEARCH MARKETING STRATEGIST Work Phone: [facility] Start: 09-07-2007 End: 09-07-2007 Office outpatient visit 15 minutes Sushma Mueller [facility] Start: 08-30-2007 End: 08-30-2007 Office outpatient visit 15 minutes Sushma Mueller [facility] Start: 07-05-2007 End: 07-05-2007 Patient encounter procedure Sushma Mueller [facility] Start: 07-05-2007 End: 07-05-2007 Sushma Mueller PAID SEARCH MARKETING STRATEGIST Work Phone: [facility] Start: 02-10-2007 End: 02-10-2007 Patient encounter procedure Sushma Mueller [facility] Start: 02-10-2007 End: 02-10-2007 Sushma Mueller PAID SEARCH MARKETING STRATEGIST Work Phone: [facility] Start: 12-22-2006 End: 12-22-2006 Patient encounter procedure Sushma Mueller [facility] Start: 12-22-2006 End: 12-22-2006 Sushma Mueller PAID SEARCH MARKETING STRATEGIST Work Phone: [facility] Start: 08-25-2006 End: 08-26-2006 Patient encounter procedure Sushma Mueller [facility] Start: 08-25-2006 End: 08-26-2006 Sushma Mueller PAID SEARCH MARKETING STRATEGIST Work Phone: [facility] Start: 08-20-2006 End: 08-20-2006 Historical Summary Sushma Mueller [facility] Start: 08-20-2006 End: 08-20-2006 Sushma Mueller PAID SEARCH MARKETING STRATEGIST Work Phone: [facility] Patient encounter status Srikanth Bennett CHARGE AUDITOR [facility]; [facility] Work Phone: Patient encounter status [employer] N [facility]; [facility] Work Phone: Patient encounter status Srikanth Mcgrath CHARGE AUDITOR [facility] Work Phone: Patient encounter status Patsy Kwok CHARGE AUDITOR [facility]; [facility] Work Phone: Patient encounter status Joanie Sam [facility] Work Phone: Patient encounter status Cassandra Myers DO Work Phone: [facility]; [facility] Work Phone: Patient encounter status Malaika Navarro MA [facility]; [facility] Work Phone: Patient encounter status Patsy Kwok IVETTE [facility]; [facility] Work Phone: End: 11-13-2016 Preprocedural examination done Patsy Kwok IVETTE [facility] Work Phone: Procedures Date Procedure Procedure Detail Performing Clinician Start: 11-07-2024 Plain X-ray of shoulder Cindy Mcpherson LEAD INGOT MOLDER-C Work Phone: Start: 08-21-2023 Colonoscopy and biopsy of colon DR DAMIAN HARTMANN MD Start: 07-06-2023 End: 07-06-2023 Procedure Note: See Note; NOTES: [address], [address] [place] [address] OFFICE VISIT Date of Service: 07/06/23 MR#: [id number] Acct: [id number] Name: CARMEN GARCIA Rep #: [id number] : 1950 Provider: Dr. 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: No Accompanied by: Self Allergies rosuvastatin [From Crestor] Allergy (Severe, Verified 07/06/23 14:02) Unknown ezetimibe [From Zetia] Allergy (Intermediate, Verified 07/06/23 14:02) Myalgia atorvastatin [From Lipitor] Allergy (Unknown, Verified 07/06/23 14:02) Unknown codeine Adverse Reaction (Intermediate, Verified 07/06/23 14:02) Chest pain ropinirole [From Requip] Adverse Reaction (Intermediate, Verified 07/06/23 14:02) Other [facility] Medical History Acute gastroenteritis Anxiety Arthralgia Atypical [...] took an iron supplement prescribed by a wire saw operator after having a period of rectal bleeding [...] repeat carotid ultrasound (December 2022) at the [facility] in [place] revealed no significant change from 12/16/2021; 20-39% [...] symptom. - She feels that acetaminophen and efyx-cxj-txhstjo magnesium supplementation have been of some benefit [...] CC: Sushma Mueller Work Phone: Start: 05-15-2023 Screening mammography LEAD INGOT MOLDERThomas Mcpherson Work Phone: Start: 05-15-2023 End: 05-15-2023 Procedure Note: See Note; NOTES: [facility] Imaging Services [address] [place] [address] SCRN MAMM (CAD)W/ROBERTO BILAT MR#: [id number] Acct: [id number] Name: CARMEN GARCIA Rep #: [id number] : 1950 F 73 From: Jorge durham MD PCP: VALENTIN San Status: [facility] Study: SCRN MAMM (CAD)W/ROBERTO BILAT Date of Exam: 02/01 Exam# [id number] Ordering Dr: Cindy Mcpherson LEAD INGOT MOLDERThomas MAMMOGRAPHY - BILATERAL SCREENING REASON FOR EXAM: [...] delay biopsy of a clinically suspicious abnormality. [id number] Electronically Signed: Jorge Johnson MD at 13:22 EDT Reading Location ID and State: [address] [place] [address] , Service support , CC: VALENTIN Mcpherson Crisis Clinician: Signed Cindy Mcpherson CNP Work Phone: Start: 02-03-2023 End: 02-03-2023 Procedure Note: See Note; NOTES: [facility] [address] [place] [address], [address] [place] [address] OFFICE VISIT Date of Service: 02/03/23 MR#: [id number] Acct: [id number] Name: CARMEN GARCIA Rep #: [id number] : 1950 Provider: Dr. Edvin holland MD Age/Sex: 73/F Location: [facility] 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: No Accompanied by: Self Allergies rosuvastatin [From Crestor] Allergy (Severe, Verified 02/03/23 15:44) Unknown ezetimibe [From Zetia] Allergy (Intermediate, Verified 02/03/23 15:44) Myalgia atorvastatin [From Lipitor] Allergy (Unknown, Verified 02/03/23 15:44) Unknown codeine Adverse Reaction (Intermediate, Verified 02/03/23 15:44) Chest pain ropinirole [From Requip] Adverse Reaction (Intermediate, Verified 02/03/23 15:44) Other [facility] Medical History Acute gastroenteritis Anxiety Arthralgia Atypical [...] History (Updated 10/07/22 @ 13:44 by Martita lAex) Smoking Status: Never smoker second hand exposure: [...] taken an iron supplement prescribed by a wire saw operator after having a period of rectal bleeding [...] was completed earlier in 2022 at the [facility] in [place] (an official report is presently not available). [...] was completed earlier in 2022 at the [facility] in [place] and a report will be obtained for review Her vitamin D level was elevated in May 2021, and her vitamin D supplement was previously decreased to 1.25mg twice monthly by Dr. Weinstein. I will have her return for reassessment in 5 months.??? 02/03/231817 <Electronically signed by Edvin Armijo MD> Date Edvin Armijo MD Cosign Signature: Date (if applicable) CC: Sushma Mueller Work Phone: Start: 10-07-2022 End: 10-07-2022 Procedure Note: See Note; NOTES: [facility] [address] [place] [address], [address] [place] [address] OFFICE VISIT Date of Service: 10/07/22 MR#: [id number] Acct: [id number] Name: CARMEN GARCIA Rep #: [id number] : 1950 Provider: Dr. Edvin holland MD Age/Sex: 72/F Location: [facility] Status: Signed Intake Vital Signs 10/07/22 13:32 Height 5 ft 3 in Weight: 202 lb 13 oz BMI 35.9 BP 144/78 H Blood Pressure Location Lt brachial Position Sitting Respiration 17 Pulse 78 Pulse Source Monitor Temp 98.0 F Temp Source Temporal Pulse Oximetry (%) 9 Oxygen Delivery Method room air Intake Visit Reasons: 5 M FU Chief Complaint: F/U Parkinson's disease Cargo Station Worker Required: No Accompanied by: Self Is patient [...] pain #60 tabs 10/07/22 [Rx Confirmed 10/07/22] [facility] Medical History Acute gastroenteritis Anxiety Arthralgia [...] taken an iron supplement prescribed by a wire saw operator after having a period of rectal bleeding [...] was completed in December 2021 at the [facility] in [place] (an official report is presently not available). [...] was completed in December 2021 at the [facility] in [place] and a report will be obtained for review Her vitamin D level was elevated in May 2021, and her vitamin D supplement was decreased to 1.25mg twice monthly by Dr. Weinstein. I will have her return for reassessment in 4 months.??? 10/07/22 4840 <Electronically signed by Edvin Armijo MD> Date Edvin Armijo MD Cosigner Signature: Date (if applicable) CC: Sushma Mueller Work Phone: Start: 05-12-2022 Screening mammography LEAD INGOT MOLDER-C Sushma Mueller NP Work Phone: Start: 05-12-2022 End: 05-13-2022 Procedure Note: See Note; NOTES: [facility] Imaging Services [address] [place] [address] SCRN MAMM (CAD)W/ROBERTO BILAT MR#: [id number] Acct: [id number] Name: CARMEN GARCIA Rep #: [id number] : 1950 F 72 From: Efrain Vazquez MD PCP: VALENTIN Shukla Status: [facility] CLI Study: SCRN MAMM (CAD)W/ROBERTO BILAT Date of Exam: 11/02 Exam# [id number] Ordering Dr: Sushma Mueller NP LEAD INGOT MOLDER-C MAMMOGRAPHY - BILATERAL SCREENING 3-D TOMOSYNTHESIS REASON [...] Signed: Ace Vazquez MD at 15:01 EDT Reading Location ID and State: [address] [place] [address] , Service support , CC: VALENTIN Mueller Crisis Clinician: Signed Cindy Mcpherson CNP Work Phone: Start: 05-06-2022 End: 05-06-2022 Procedure Note: See Note; NOTES: [facility] [address] [facility] [place], [place] [address] OFFICE VISIT Date of Service: 05/06/22 MR#: [id number] Acct: [id number] Name: CARMEN GARCIA Rep #: [id number] : 1950 Provider: Dr. Edvin holland MD Age/Sex: 72/F Location: [facility] Status: Signed Intake Vital Signs 05/06/22 [...] mg PO BID 05/06/22 [History Confirmed 05/06/22] [facility] Medical History (Updated 05/06/22 @ 13:34 by [...] taken an iron supplement prescribed by a wire saw operator after having a period of rectal bleeding [...] was completed in December 2021 at the [facility] in [place] (an official report is presently not available). [...] a colonoscopy and was evaluated by a wire saw operator, Dr. [place], and treated with an iron [...] was completed in December 2021 at the [facility] in [place] and a report will be obtained for review Her vitamin D level was elevated in May 2021, and her vitamin D supplement was decreased to 1.25mg twice monthly by Dr. Weinstein. I will have her return for reassessment in 5 months.??? 05/06/22 0393 <Electronically signed by Edvin Armijo MD> Date Edvin Armijo MD Cosigner Signature: Date (if applicable) CC: Sushma Mueller Work Phone: Start: 10-31-2021 End: 10-31-2021 Comments: See Note; NOTES: [facility] [address] [facility] [place] [address] OFFICE VISIT Date of Service: 10/31/21 MR#: [id number] Acct: [id number] Name: CARMEN GARCIA Rep #: [id number] : 1950 Provider: VALENTIN carrasco Age/Sex: 71/F Location: [facility] Status: Signed Intake Vital Signs 10/31/21 11:03 10/31/21 11:05 BP 146/90 H 146/88 H Blood Pressure Location Lt brachial Lt brachial Position Sitting Standing Pulse 74 78 Pulse Source Monitor Monitor Pulse Oximetry (%) 97 98 Oxygen Delivery Method room air room air Intake Visit Reasons: 6 M FU Chief Complaint: F/U Parkinson's disease Cargo Station Worker Required: No Accompanied by: self Is patient [...] mg PO DAILY 10/31/21 [History Confirmed 10/31/21] PFS Medical History Acute gastroenteritis Anxiety Arthralgia Atypical [...] artery: Status: Chronic Plan - Rani Rodriguez LEAD INGOT MOLDER, LEAD INGOT MOLDER-C: The patient has mild Parkinson's disease. She [...] 1205 <Electronically signed by Rani Rodriguez NP LEAD INGOT MOLDERMicaela C> Date Rani Rodriguez NP LEAD INGOT MOLDERMicaelaC Cosigner Signature: Date (if applicable) CC: LEAD INGOT MOLDER-Bijan Mueller PAID SEARCH MARKETING STRATEGIST Work Phone: Start: 08-13-2021 End: 08-13-2021 Comments: See Note; NOTES: [facility] [address] [place] [address] Venous Duplex US, Unilateral 08/13/21 1430 MR#: [id number] Acct: [id number] Name: CARMEN GARCIA Rep #: [id number] : 1950 71 From: Bright Padilla MD Attending Dr: VALENTIN Shukla Status: REG CLI Ordering Dr: Sushma Mueller NP LEAD INGOT MOLDER-C Date: 08/13/21 Location: [facility] Sex: F C [...] POP V is compressible, spontaneous, phasic, to [place]. competent and demonstrates normal augmentation. T/P Trunk [...] RVT 08/13/212032 Date Bright Padilla MD CC: LEAD INGOT MOLDER-C Sushma Mueller Date Dictated: 08/13/21 1430 Date Transcribed: 08/13/212032 Crisis Clinician: Signed Sushma Mueller [facility] Work Phone: Start: 08-13-2021 End: 08-13-2021 Comments: See Note; NOTES: [facility] [address] [place] [address] Ankle min 3 Views MR#: [id number] Acct: [id number] Name: CARMEN GARCIA Rep #: [id number] : 1950 F 71 From: Louise devine MD PCP: VALENTIN Shukla Status: DEP AMB Study: Ankle min 3 Views Date of Exam: 08/13/21 Exam# [id number] Ordering Dr: Sushma Mueller NP LEAD INGOT MOLDER-Bijan HISTORY: PAIN. TECHNIQUE: XR Ankle Min 3 [...] EDT Tel , Service support , CC: VALENTIN Mueller Crisis Clinician: Signed Sushma Mueller CNP Work Phone: Start: 05-10-2021 End: 05-10-2021 Comments: See Note; NOTES: [facility] Imaging Services [address] [place] [address] SCRN MAMM (CAD)W/ROBERTO BILAT MR#: [id number] Acct: [id number] Name: CARMEN GARCIA Rep #: [id number] : 1950 F 71 From: Efrain Vazquez MD PCP: VALENTIN Shukla Status: REG CLI Study: SCRN MAMM (CAD)W/ROBERTO BILAT Date of Exam: 04/13 Exam# [id number] Ordering Dr: Sushma Mueller NP, NP-Bijan MAMMOGRAPHY - BILATERAL SCREENING 3-D TOMOSYNTHESIS REASON [...] , Service support , CC: VALENTIN Mueller Crisis Clinician: Signed Sushma Mueller PAID SEARCH MARKETING STRATEGIST Work Phone: Start: 04-25-2021 End: 04-25-2021 Comments: See Note; NOTES: [facility] [address] [place] [address] OFFICE VISIT Date of Service: 04/25/21 MR#: [id number] Acct: [id number] Name: CARMEN GARCIA Rep #: [id number] : 1950 Provider: VALENTIN carrasco Age/Sex: 71/F Location: [facility] Status: Signed Intake Vital Signs 04/25/21 12:59 BP 136/84 H Blood Pressure Location Lt brachial Position Sitting Respiration 16 Pulse 75 Pulse Source Monitor Pulse Oximetry (%) 97 Oxygen Delivery Method room air Intake Visit Reasons: 4 M FU Chief Complaint: F/U Parkinson's disease Cargo Station Worker Required: No Accompanied by: Self Is patient [...] Status: Chronic Plan - Rani Rodriguez NP, LEAD INGOT MOLDER-C: The patient has mild Parkinson's disease. She [...] health record. Follow Up: 6 Months 04/25/21 2085 <Electronically signed by Rani Rodriguez NP LEAD INGOT MOLDER- C> Date Rani Chahal Signature: Date (if applicable) CC: VALENTIN Mueller Sushma Mueller PAID SEARCH MARKETING STRATEGIST Work Phone: Start: 12-20-2020 End: 12-20-2020 Comments: See Note; NOTES: [facility] [address] [place], [place] [address] OFFICE VISIT Date of Service: 12/20/20 MR#: [id number] Acct: [id number] Name: CARMEN GARCIA Rep #: [id number] : 1950 Provider: VALENTIN carrasco Age/Sex: 70/F Location: [facility] Status: Signed Intake Vital Signs 12/20/20 BP [...] Chief Complaint: follow-up visit for Parkinson's disease Cargo Station Worker Required: No Accompanied by: Self Is patient [...] TID #270 tab 12/20/20 [Rx Confirmed 12/20/20] [facility] Medical History Acute gastroenteritis (Acute) Anxiety (Acute) [...] 12/20/20 @ 14:20 by Rani Rodriguez NP, LEAD INGOT MOLDER-C) Smoking Status: Never smoker alcohol intake: current [...] [facility] She did not tolerate various lipid-lowering agents. [...] 1420 <Electronically signed by Rani Rodriguez NP LEAD INGOT MOLDER- C> Date Rani Rodriguez NP LEAD INGOT MOLDER-C Cosigner Signature: Date (if applicable) CC: LEAD INGOT MOLDER-C Sushma Mueller PAID SEARCH MARKETING STRATEGIST Work Phone: Start: 08-23-2020 End: 08-27-2020 Neurology Visit Report Comments: See Note; NOTES: [facility] [address] [place], [place] [address] OFFICE VISIT Date of Service: 08/23/20 MR#: [id number] Acct: [id number] Name: CARMEN GARCIA Rep #: [id number] : 1950 Provider: Dr. Edvin holland MD Age/Sex: 70/F Location: [facility] Status: Signed Intake Vital Signs 08/23/20 BP [...] 1 tab PO DAILY tab 08/23/20 [History] [facility] Medical History Acute gastroenteritis (Acute) Anxiety (Acute) [...] describes her neck pain as a charley horse. The neck pain is brief in duration, [...] noted on her head MRI from 2017). She has mild momentary episodes of musculoskeletal [...] Signature: Date (if applicable) Rani Rodriguez NP CC: Sushma Mueller Start: 05-08-2020 End: 05-08-2020 SCREEN MAMM (CAD) W/ROBERTO BILAT Comments: See Note; NOTES: [facility] Imaging Services [address] [place] [address] SCREEN MAMM (CAD) W/ROBERTO BILAT MR#: [id number] Acct: [id number] Name: CARMEN GARCIA Rep #: [id number] : 1950 F 70 From: Jorge durham MD PCP: VALENTIN Shukla Status: [facility] Study: SCREEN MAMM (CAD) W/ROBERTO BILAT Date of Exam: 0 05/08/20 Exam# [id number] Ordering Dr: Ciesa,Sushma LEAD INGOT MOLDER-C MAMMOGRAPHY - BILATERAL SCREENING REASON FOR EXAM: [...] delay biopsy of a clinically suspicious abnormality. [id number] Electronically Signed: Jorge Johnson, at 13:46 EDT , Service support , CC: LEAD INGOT MOLDER-C Sushma Mueller Crisis Clinician: Signed Sushma Mueller Work Phone: Start: 04-19-2020 End: 04-19-2020 Neurology Visit Report Comments: See Note; NOTES: [facility] [address] [place] [address] OFFICE VISIT Date of Service: 04/19/20 MR#: [id number] Acct: [id number] Name: CARMEN GARCIA Rep #: [id number] : 1950 Provider: Dr. Edvin holland MD Age/Sex: 70/F Location: [facility] Status: Signed Intake Vital Signs 04/19/20 [...] air Intake Visit Reasons: NEW PATIENT APT Cargo Station Worker Required: No Accompanied by: Self Is patient [...] 137 mcg PO DAILY 05/05/19 [History Confirmed 04/18/20] TENS unit and electrodes [...] Carotid Duplex Ultrasound Comments: See Note; NOTES: [facility] [address] [place] [address] Carotid Duplex Ultrasound 11/16/19 0944 MR#: [id number] Acct: [id number] Name: CARMEN GARCIA Rep #: [id number] : 1950 69 From: Alan Archer MD [...] Physician: Sushma Mueller Performed By: Jessica Guillen, [place], RVT 11/16/191516 Date Alan Archer MD CC: LEAD INGOT MOLDER-C Sushma Lisjesseniasavanna Date Dictated: 11/16/19 0944 Date Transcribed: 11/16/191516 Crisis Clinician: Signed Sushma Duong Keishasavanna Work Phone: Start: 10-29-2019 End: 11-02-2019 TXT - Blood Flow Screening Comments: See Note; NOTES: [facility] [address] [place] [address] 10/28/19 0832 MR#: [id number] Acct: [id number] Name: CARMEN GARCIA Rep #: [id number] : 1950 69 From: Bright Padilla MD Attending Dr: Self Referred Status: REG REF Ordering Dr: Date: 10/29/19 Location: [facility] Sex: F C Admitted: Reason For Study: [...] 10/29/19 1012 Date Bright Padilla MD CC: LEAD INGOT MOLDER-Bijan Mueller; Self Referred Date Dictated: 10/28/19 0832 Date Transcribed: 10/29/19 1012 Crisis Clinician: Signed Sushma Mueller Start: 10-26-2019 End: 10-26-[address] w/CCTA Comments: See Note; NOTES: [facility] Imaging Services [address] [place] [address] w/CCTA MR#: [id number] Acct: [id number] Name: CARMEN GARCIA Rep #: [id number] : 1950 F 69 From: Michael Bauer MD PCP: VALENTIN Shukla Status: REG CLI Study: Limited Chest CT w/CCTA Date of Exam: 10/26/19 Exam# [id number] Ordering Dr: Sushma Mueller STUDY: CARDIAC CALCIUM [...] 16:00 EST , Service support , CC: VALENTIN Mueller Crisis Clinician: Signed Sushma Mueller Work Phone: Start: 09-29-2019 End: 09-29-2019 PT D/C Summary (1) Comments: See Note; NOTES: [facility] [address] [place] [address] [address] [place] [address] / REHABILITATION SERVICES DISCHARGE SUMMARY MR#: [id number] Acct: [id number] Name: CARMEN GARCIA Rep #: [id number] : 1950 69 From: Neftali Mcpherson DPT, [...] please feel free to call me at [phone]. Thank you for the referral of this patient. Sincerely, Neftali Mcpherson, GERALD, OCS, CSCS <Electronically signed by Neftali Mcpherson DPT, OCS, CSCS> 09/29/19 0919 CC: VALENTIN Mueller; Dalila Arzate MD EBG Signed Sushma Mueller Start: 08-29-2019 End: 08-29-2019 Inital Evaluation (1) - PT Comments: See Note; NOTES: [facility] [address] [place] [address]. [address] [place] [address] / REHABILITATION SERVICES INITIAL EVALUATION MR#: [id number] Acct: [id number] Name: CARMEN GARCIA Rep #: [id number] : 1950 69 From: Neftali Mcpherson DPT, [...] in basement. Does laundry with railing. Plays [employer] for fun. Enjoys dinner functions and [employer] ex class for one our. - [...] to be FAXED BACK to us at [phone] for Medicare purposes. For Medicare only, by signing this I certify the plan of care. Please let me know if there are questions or concerns regarding this plan of care. Physician Signature: ___Date: <Electronically signed by Neftali ROBLEST, OCS, [facility]> 08/29/19 0642 CC: VALENTIN Mueller; Dalila Arzate MD EBG Signed Sushma Mueller Start: 07-22-2019 End: 07-22-2019 Inital Evaluation (1) - PT Comments: See Note; NOTES: [facility] [address]. [address] [place] [address] / REHABILITATION SERVICES INITIAL EVALUATION MR#: [id number] Acct: [id number] Name: CARMEN GARCIA Rep #: [id number] : 1950 69 From: Lindsey Mason PT, [...] to be FAXED BACK to us at [phone] for Medicare purposes. For Medicare only, by signing this I certify the plan of care. Please let me know if there are questions or concerns regarding this plan of care. Physician Signature: ___Date: <Electronically signed by Lindsey Mason PT Cert. MDT> 07/22/19 1054 CC: VALENTIN Mueller LUCY Signed Sushma Mueller Start: 07-14-2019 End: 07-14-2019 CTA Chest W/WO Contrast Comments: See Note; NOTES: [facility] Imaging Services [address] [place] [address] CTA Chest W/WO Contrast MR#: [id number] Acct: [id number] Name: CARMEN GARCIA Rep #: [id number] : 1950 F 69 From: Jorge Johnson MD PCP: VALENTIN Shukla Status: REG CLI Study: CTA Chest W/WO Contrast Date of Exam: 07/14/19 Exam# [id number] Ordering Dr: Sushma Mueller STUDY: CTA CHEST [...] embolism or arterial dissection. Electronically Signed: Jorge Johnson, at 15:10 EDT , Service support , CC: LEAD INGOT MOLDER-C Sushma Mueller Crisis Clinician: Signed Sushma Mueller Work Phone: Start: 06-28-2019 End: 06-28-2019 PT D/C Summary (1) Comments: See Note; NOTES: [facility] [address] [place] [address]. [address] [place] [address] / REHABILITATION SERVICES DISCHARGE SUMMARY MR#: [id number] Acct: [id number] Name: CARMEN GARCIA Rep #: [id number] : 1950 69 From: Lindsey Mason PT, [...] IS A LOT BETTER BUT IT ISN'T WONDERFUL. Active Correction of posture: BETTER. Other Observations: [...] please feel free to call me at [phone]. Thank you for the referral of this patient. Sincerely, Lindsey Mason PT, Cert MDT <Electronically signed by Lindsey Mason PT Cert. MDT> 06/28/19 1003 CC: VALENTIN Mueller; Bea Jacobs DO LUCY Signed Sushma Mueller Start: 05-18-2019 End: 05-18-2019 Inital Evaluation (1) - PT Comments: See Note; NOTES: [facility] [address] [place] [address]. [address] [place] [address] / REHABILITATION SERVICES INITIAL EVALUATION MR#: [id number] Acct: [id number] Name: CARMEN GARCIA Rep #: [id number] : 1950 69 From: Paula Kiser PT. [...] HIP PAIN. MY LOWER BACK IS REAL ACHY. PATIENT DENIES JANEL LE NUMBNESS AND TINGLING. [...] YES. Previous history/Previous treatment: AQUATIC THERAPY AT [facility] IN DECEMBER AND JANUARY - WATER HELPED [...] Postural training, Flexibilty training, In an aquatic setting, Dynamic Lumbar Stabilization For the Purpose of:: [...] to be FAXED BACK to us at [phone] for Medicare purposes. For Medicare only, by [...] Orthopedic Visit Report Comments: See Note; NOTES: [facility] [place] [address] OFFICE VISIT Date of Service: 05/05/19 MR#: [id number] Acct: [id number] Name: CARMEN GARCIA Rep #: [id number] : 1950 Provider: Bea Jacobs DO Age/Sex: 69/F [place] [facility] [place] [place]: Signed Intake Vital Signs05/05/19 Height 5 [...] 137 mcg PO DAILY 05/05/19 [History] omega 1-hfo-ioa-fish oil 60 mg-90 mg-500 mg capsule 1 [...] Patient has had PT in December at [facility]. Patient does report a fall on her [...] (CAD) W/ROBERTO BILAT Comments: See Note; NOTES: [facility] Imaging Services [address] [place] [address] SCREEN MAMM (CAD) W/ROBERTO BILAT MR#: [id number] Acct: [id number] Name: CARMEN GARCIA Rep #: [id number] : 1950 F 69 From: Efrain Vazquez MD PCP: VALENTIN Shukla Status: REG CLI Study: SCREEN MAMM (CAD) W/ROBERTO BILAT Date of Exam: 05/06/19 Exam# [id number] Ordering Dr: Sushma Mueller MAMMOGRAPHY - BILATERAL [...] , Service support , CC: VALENTIN Mueller Crisis Clinician: Signed Sushma Mueller Work Phone: Start: 05-05-2019 End: 05-05-2019 HIP, UNI W/ Pelvis 2-3 Views Comments: See Note; NOTES: [facility] Imaging Services [address] [place] [address] HIP, UNI W/ Pelvis 2-3 Views MR#: [id number] Acct: [id number] Name: CARMEN GARCIA Rep #: [id number] : 1950 F 69 From: Fern Curits MD PCP: Sushma Mueller NP Status: REG CLI Study: HIP, UNI W/ Pelvis 2-3 Views Date of Exam: 05/05/19 Exam# [id number] Ordering Dr: Bea Jacobs DO STUDY: X-RAY [...] 13:30 EDT , Service support , CC: LEAD INGOT MOLDER Sushma Mueller; Bea Jacobs DO Crisis Clinician: Signed Sushma Mueller Start: 05-05-2019 End: 05-05-2019 L/S Spine Min 4 Views Comments: See Note; NOTES: [facility] Imaging Services [address] [place] [address] L/S Spine Min 4 Views MR#: [id number] Acct: [id number] Name: CARMEN GARCIA Rep #: [id number] : 1950 F 69 From: Fern Curtis MD PCP: Sushma Mueller NP Status: REG CLI Study: L/S Spine Min 4 Views Date of Exam: 05/05/19 Exam# [id number] Ordering Dr: Bea Jacobs DO ADDENDUM by Fern Curtis MD on 05/05/19 at 1331 ADDENDUM Incidentally noted is a spina bifida occulta of S1, a normal variant. Electronically Signed: Fern Curtis MD at 13:31 EDT , Service support , 05/05/19 1331 Date cc: LEAD INGOT MOLDER Sushma Mueller; Bea Jacobs DO * Signed [...] , CC: OLIVE Mueller; Bea Jacobs DO Crisis Clinician: Signed Sushma Ami Start: 05-05-2018 End: 05-05-2018 SCREENING MAMM (CAD), BILAT Comments: See Note; NOTES: [facility] Imaging Services [address] [place] [address] SCREENING MAMM (CAD), BILAT MR#: [id number] Acct: [id number] Name: CARMEN GARCIA Rep #: [id number] : 1950 F 68 From: Efrain Vazquez MD PCP: Sushma Mueller NP Status: REG CLI Study: SCREENING MAMM (CAD), BILAT Date of Exam: 05/05/18 Exam# [id number] Ordering Dr: Sushma Mueller MAMMOGRAPHY - BILATERAL [...] Service support , CC: Sushma Mueller NP Crisis Clinician: Signed Sushma Mueller Work Phone: Start: 07-30-2017 End: 07-31-2017 Brain W/WO Contrast Comments: See Note; NOTES: [facility] Imaging Services [address] [place] [address] Brain W/WO Contrast MR#: [id number] Acct: [id number] Name: CARMEN GARCIA Rep #: [id number] : 1950 F 67 From: Adelina Clifford PCP: Sushma Mueller Status: REG CLI Study: Brain W/WO Contrast Date of Exam: 07/30/17 Exam# [id number] Ordering Dr: Sushma Mueller STUDY: MRI BRAIN [...] , Service support , CC: Sushma Mueller Crisis Clinician: Signed Sushma Mueller Work Phone: Start: 05-04-2017 End: 05-04-2017 SCREENING MAMM (CAD), BILAT Comments: See Note; NOTES: [facility] Imaging Services [address] [place] [address] Verdana 4d SCREENING MAMM (CAD), BILAT MR#: [id number] Acct: [id number] Name: CARMEN GARCIA Rep #: [id number] : 1950 F 67 From: Jorge Johnson MD PCP: Sushma Mueller Status: REG CLI Study: SCREENING MAMM (CAD), BILAT Date of Exam: 05/04/17 Exam# [id number] Ordering Dr: Sushma Mueller MAMMOGRAPHY - BILATERAL [...] delay biopsy of a clinically suspicious abnormality. [id number] Electronically Signed: Jorge Johnson MD at 13:04 EDT Tel [phone], Service support , CC: Sushma Mueller Crisis Clinician: Signed Sushma Mueller Work Phone: Start: 09-09-2016 End: 09-09-2016 PT D/C Summary (1) Comments: See Note; NOTES: [facility] [address] [place] [address] Fax REHABILITATION SERVICES DISCHARGE SUMMARY MR#: [id number] Acct: [id number] Name: CARMEN GARCIA Rep #: [id number] : 1950 66 From: Reina Morel DPChivo [...] Goal Met - Plan Plan: Discharge to HEP - D/C Information If there are questions or concerns regarding this patient's physical therapy, please feel free to call me at [phone]. Thank you for the referral of this patient. Sincerely, Reina Morel <Electronically signed by Reina Morel DPT> 09/09/16 6040 CC: Sage Morales ELR Signed Sushma Mueller Start: 08-13-2016 End: 08-13-2016 Inital Evaluation (1) - PT Comments: See Note; NOTES: [facility] [address] [place] [address] Fax REHABILITATION SERVICES INITIAL EVALUATION MR#: [id number] Acct: [id number] Name: CARMEN GARCIA Rep #: [id number] : 1950 66 From: Reina Morel DPT Referring Dr.: Sage Morales Status: REG RCR [...] to be FAXED BACK to us at [phone] for Medicare purposes. Please let me know if there are questions or concerns regarding this plan of care. Physician Signature: ___Date: <Electronically signed by Reina Morel DPT> 08/13/16 1209 CC: Sage Morales ELR Signed For Medicare only, by signing this I certify the plan of care. Physicians Signature Date Sushma Mueller Start: 08-07-2016 End: 08-07-2016 Hip 2-3 Views with Pelvis Comments: See Note; NOTES: [facility] Imaging Services [address] [place] [address] Verda 4d Hip 2-3 Views with Pelvis MR#: [id number] Acct: [id number] Name: CARMEN GARCIA Rep #: [id number] : 1950 F 66 From: Jorge Johnson MD PCP: Sage Morales Status: REG CLI Study: Hip 2-3 Views with Pelvis Date of Exam: 08/07/16 Exam# [id number] Ordering Dr: Sage Morales STUDY: X-RAY - [...] Jorge Johnson MD at 12:34 EDT Tel [phone], Service support [phone], CC: Sage Morales Crisis Clinician: Signed Sage Morales Work Phone: Start: 04-25-2016 End: 04-25-2016 Bilat Scrn Digital AND CAD Comments: See Note; NOTES: [facility] Imaging Services [address] [place] [address] Verdana 4d Bilat Scrn Digital AND CAD MR#: [id number] Acct: [id number] Name: CARMEN GARCIA Rep #: [id number] : 1950 F 66 From: Jorge Johnson MD PCP: Cassandra Myers DO Status: REG CLI Study: Bilat Scrn Digital AND CAD Date of Exam: 04/25/16 Exam# [id number] Ordering Dr: Sage Morales MAMMOGRAPHY - BILATERAL [...] delay biopsy of a clinically suspicious abnormality. [id number] Electronically Signed: Jorge Johnson MD at 12:24 EDT Tel [phone], Service support [phone], CC: Cassandra Myers DO; Sage Morales Crisis Clinician: Signed Sage Morales Work Phone: Start: 03-05-2016 End: 03-05-2016 Ecg routine ecg w/least 12 lds w/i&r [MEASUREMENTS ANALYSIS] Date of Test: 03/05/2016 08:39:59; Heart Rate: 106; MD Interval: 148; QRS: 85; QT Interval: 338; Corrected QT Interval (QTc): 418; P Wave [place]: 38; QRS Wave [place]: 14; T Wave [place]: 35; Blood Pressure: 122/74 [ECG DIAGNOSTIC STATEMENTS] Date of Test: 03/05/2016 08:39:59; Summary: Sinus Tachycardia WITHIN NORMAL LIMITS Sushma Mueller Work Phone: Start: 04-24-2015 End: 04-24-2015 Bilat Scrn Digital AND CAD Comments: See Note; NOTES: [facility] Imaging Services [address] [place] [address] Breast Imaging Report MR#: [id number] Acct: [id number] Name: CARMEN GARCIA Rep #: [id number] : 1950 F 65 From: Jorge Johnson MD PCP: Cassandra Myers DO Status: REG CLI Study: Bilat Scrn Digital AND CAD Date of Exam: 04/24/15 Exam# [id number] Ordering Dr: Cassandra Myers DO MAMMOGRAPHY - [...] Jorge Johnson MD at 11:34 EDT Tel [phone], Service support [phone], CC: Cassandra Myers DO Crisis Clinician: Signed Cassandra Myers Work Phone: Start: 03-24-2014 End: 03-24-2014 Bilat Scrn Digital & CAD Comments: See Note; NOTES: [facility] Imaging Services [address] [place] [address] Breast Imaging Report MR#: [id number] Acct: [id number] Name: CARMEN GARCIA Rep #: [id number] : 1950 F 64 From: Jorge Johnson MD PCP: Cassandra Myers DO Status: REG CLI Exam# [id number] Ordering Dr: Cassnadra Myers DO MAMMOGRAPHY - BILATERAL SCREENING REASON [...] Jorge Johnson MD at 12:56 EDT Tel [phone], Service support [phone], CC: Cassandra Myers DO Crisis Clinician: Signed Cassandra Myers Work Phone: Cardioversion DR DAMIAN HOLLAND MD Cholecystectomy Patsy Slarb Cholecystectomy Srikanth Mcgrath Cholecystectomy Srikanth Mcgrath Cholecystectomy Erica Coffma n Cholecystectomy Srikanth Mcgrath Cholecystectomy Srikanth Mcgrath Cholecystectomy Srikanth Donald Cholecystectomy Srikanth Donald Cholecystectomy Erica Coffma n CHARGE AUDITOR Cholecystectomy Patsy Slarb CHARGE AUDITOR Cholecystectomy Joanie Manc hak HAND TILE MAKER Cholecystectomy Cassandra Myers DO Work Phone: Cholecystectomy Malaika Navarro MA Cholecystectomy Patsy Slarb CHARGE AUDITOR Cholecystectomy DR DAMIAN CONKLIN MD End: 01-16-2010 Cholecystectomy Cholecystectomy Srikanth Donald CHARGE AUDITOR Colonoscopy DR DAMIAN HARRIS MD Comment on above: 4 History of thyroidectomy Srikanth Mcgrath CHARGE AUDITOR Hysterectomy DR DAMIAN HARRIS MD partial [...] 2012 Srikanth Bennett thyroidectomy/parath yro idectomy - 2013 Srikanth Bennett Tonsillectomy Patsy Slarb Tonsillectomy Srikanth Mcrgath Tonsillectomy Srikanth Mcgrath Tonsillectomy Erica Calos Tonsillectomy Srikanth Mcgrath Tonsillectomy Srikanth Mcgrath Tonsillectomy Srikanth Bennett Tonsillectomy Srikanth Bennett Tonsillectomy Erica Calos CHARGE AUDITOR Tonsillectomy Patsy Slarb L PN Tonsillectomy Joanie Pierre k HAND TILE MAKER Tonsillectomy Cassandra A Fast D O Work Phone: Tonsillectomy Malaika Mclaughlin A Tonsillectomy Patsy Slarb L PN Total thyroidectomy DR EDOUARD HARTMANN MD Srikanth Bennett LP N Erica Calos L PN Srikanth Mcgrath LP N Patsy Slarb LP N Joanie Manchak HAND TILE MAKER Cassandra A Fast DO Work Phone: Malaika Navarro MA Patsy Slarb LP N Plan of Treatment Date Care Activity Detail Author Start: 12-08-2024 Patient referral [facility] Work Phone: Start: 12-23-2023 US CAROTID ARTERIES [facility] US CAROTID ARTERIES [facility] Vascular Lab Routine Carotid stenosis, asymptomatic, bilateral Expected: 12/23/2023 [facility] Work Phone: Comment on above: Expected: 12/23/2023 Start: 10-12-2023 Advance Directive Discussion Advance Directive Discussion [facility] Start: 10-12-2023 Behavioral Health Screening Behavioral Health Screening [facility] Start: 10-12-2023 Depression Assessment Depression Assessment [facility] Start: 06-12-2023 Covid-19 Vaccine () Covid-19 Vaccine () [facility] Start: 02-13-2023 Procedure Education [facility] Work Phone: [...] asymptomatic, bilateral Expected: 01/09/2023 (Approximate), Expires: 01/09/2023 [facility] Work Phone: Comment on above: Expected: 01/09/2023 (Approximate), Expi res: 01/09/2023 Start: 10-12-2022 ADVANCE DIRECTIVE DISCUSSION ADVANCE DIRECTIVE DISCUSSION [facility] Start: 10-12-2022 DEPRESSION ASSESSMENT DEPRESSION ASSESSMENT [facility] Start: 09-12-2022 Provider Instructions for Treatment [facility] Work Phone: Start: 08-29-2022 Procedure Education [facility]; [facility] Work Phone: Start: 08-29-2022 Provider Instructions for Treatment [facility] Work Phone: Start: 04-28-2022 Procedure Education [facility]; [facility] Work Phone: Start: 12-02-2021 Procedure Education [facility]; [facility] Work Phone: Start: 12-02-2021 Provider Instructions for Treatment [facility] Work Phone: Start: 11-21-2021 COVID-19 VACCINE (4 - Booster for Pfizer series) COVID-19 VACCINE (4 - Booster for Pfizer series) [facility] Start: 10-12-2021 ADVANCE DIRECTIVE DISCUSSION ADVANCE DIRECTIVE DISCUSSION [facility] Start: 10-08-2021 Iaadiadoo influenza [facility]; [facility] Work Phone: Start: 10-08-2021 Procedure Education [facility]; [facility] Work Phone: Start: 08-19-2021 Blood occult fecal hgb deter ia qual feces 1-3 [facility]; [facility] Work Phone: Start: 08-16-2021 Procedure Education [facility]; [facility] Work Phone: Start: 08-16-2021 Provider Instructions for Treatment [facility]; [facility] Work Phone: Start: 08-16-2021 Oncology colorectal screening edei 10 dna markrs [facility]; [facility] Work Phone: Start: 08-16-2021 Assay of iron [facility]; [facility] Work Phone: Start: 08-13-2021 Provider Instructions for Treatment [facility]; [facility] Work Phone: Start: 06-12-2021 Influenza vaccination INFLUENZA (#1) [facility] Start: 04-29-2021 Procedure Education [facility]; [facility] Work Phone: Start: 04-29-2021 Provider Instructions for Treatment [facility]; [facility] Work Phone: Start: 04-29-2021 Blood count complete auto&auto difrntl wbc [facility]; [facility] Work Phone: Start: 04-29-2021 Basic metabolic panel calcium total [facility]; [facility] Work Phone: Start: 10-30-2020 Procedure Education [facility]; [facility] Work Phone: Start: 10-30-2020 Provider Instructions for Treatment [facility]; [facility] Work Phone: Start: 09-14-2020 Procedure Education [facility] Work Phone: Start: 09-14-2020 Provider Instructions for Treatment [facility] Work Phone: Start: 09-14-2020 Iaadiadoo influenza 2019 Novel Coronavirus (COVID-19), FLACO (59996) [facility] Work Phone: Start: 04-25-2020 Procedure Education [facility] Work Phone: Start: 04-25-2020 Provider Instructions for Treatment [facility] Work Phone: Start: 01-16-2020 Procedure Education [facility] Work Phone: Start: 01-16-2020 Provider Instructions for Treatment [facility] Work Phone: Start: 01-16-2020 Comprehensive metabolic panel [facility] Work Phone: Start: 10-14-2019 Procedure Education [facility] Work Phone: Start: 10-14-2019 Provider Instructions for Treatment [facility] Work Phone: Start: 08-15-2019 Procedure Education [facility] Work Phone: Start: 08-15-2019 Provider Instructions for Treatment [facility] Work Phone: Start: 07-13-2019 Blood count complete automated CBC & PLATELETS (AUTO) (60622) [facility] Work Phone: Start: 07-13-2019 Comprehensive metabolic panel Metabolic Panel, Comprehensive (87405) [facility] Work Phone: Start: 07-13-2019 Fibrin dgradj products d-dimer quantitative D-Dimer (15179) [facility] Work Phone: Start: 07-13-2019 Troponin I.cardiac [Mass/Vol] Troponin I (05519) [facility] Work Phone: Start: 07-13-2019 Creatine kinase mb fraction only CPK MB FRACTION (26263) [facility] Work Phone: Start: 07-13-2019 CRP [Mass/Vol] C-Reactive Protein (71794) [facility] Work Phone: Start: 07-13-2019 Procedure Education [facility] Work Phone: Start: 07-13-2019 Provider Instructions for Treatment [facility] Work Phone: Start: 01-25-2019 Procedure Education [facility] Work Phone: Start: 01-25-2019 Provider Instructions for Treatment [facility] Work Phone: Start: 08-21-2017 Procedure Education [facility] Work Phone: Start: 08-21-2017 Provider Instructions for Treatment [facility] Work Phone: Start: 07-27-2017 Procedure Education [facility] Work Phone: Start: 07-27-2017 Provider Instructions for Treatment [facility] Work Phone: Start: 07-27-2017 Urinalysis qual/semiquant except immunoassays [facility] Work Phone: Start: 07-27-2017 Urine albumin quantitative [facility] Work Phone: Start: 07-27-2017 Cobalamin (Vitamin B12) mass conc VITAMIN B12 AND FOLATES (52535) [facility] Work Phone: Start: 07-27-2017 Cyanocobalamin vitamin b-12 [facility] Work Phone: Start: 07-27-2017 25 hydroxy includes fractions if performed [facility] Work Phone: Start: 07-27-2017 Blood count complete automated [facility] Work Phone: Start: 11-13-2016 Procedure Education [facility] Work Phone: Start: 11-13-2016 Provider Instructions for Treatment [facility] Work Phone: Start: 10-20-2016 Patient Education [facility] Work Phone: Start: 10-20-2016 Procedure Education [facility] Work Phone: Start: 10-20-2016 Provider Instructions for Treatment [facility] Work Phone: Start: 08-07-2016 Procedure Education [facility] Work Phone: Start: 08-07-2016 Provider Instructions for Treatment [facility] Work Phone: Start: 05-13-2016 Urine albumin quantitative [facility] Work Phone: Start: 05-13-2016 Hemoglobin A1c/Hemoglobin.total mass fraction (Bld) HGB A1C (40757) [facility] Work Phone: Start: 05-13-2016 Hemoglobin glycosylated a1c [facility] Work Phone: Start: 05-13-2016 Cobalamin (Vitamin B12) mass conc VITAMIN B12 AND FOLATES (08196) [facility] Work Phone: Start: 05-13-2016 Cyanocobalamin vitamin b-12 [facility] Work Phone: Start: 05-13-2016 Comprehensive metabolic panel [facility] Work Phone: Start: 05-13-2016 Blood count complete auto&auto difrntl wbc [facility] Work Phone: Start: 05-13-2016 Lipid panel [facility] Work Phone: Start: 05-13-2016 Assay of thyroid stimulating hormone tsh [facility] Work Phone: Start: 05-13-2016 Thyrotropin Qn TSH (THYROID STIMULATING HORMONE) (85910) [facility] Work Phone: Start: 05-13-2016 25 hydroxy includes fractions if performed [facility] Work Phone: Start: 05-13-2016 Procedure Education [facility] Work Phone: Start: 05-13-2016 Provider Instructions for Treatment [facility] Work Phone: Start: 03-05-2016 Procedure Education [facility] Work Phone: Start: 12-03-2015 Provider Instructions for Treatment [facility] Work Phone: Start: 05-14-2015 Procedure Education [facility] Work Phone: Start: 05-14-2015 Comprehensive metabolic panel [facility] Work Phone: Start: 05-14-2015 Lipid panel [facility] Work Phone: Start: 04-04-2015 Patient Education [facility] Work Phone: Start: 04-04-2015 Provider Instructions for Treatment [facility] Work Phone: Start: 04-04-2015 Blood count complete auto&auto difrntl wbc [facility] Internal Medicine Work Phone: Start: 04-04-2015 Assay of thyroid stimulating hormone tsh [facility] Work Phone: Start: 04-04-2015 Thyrotropin Qn TSH (77873) [facility] Work Phone: Start: 04-04-2015 Lipid panel [facility] Work Phone: Start: 04-04-2015 Comprehensive [...] Phone: Start: 2015 BONE DENSITY BONE DENSITY [facility] Start: 2015 PNEUMOCOCCAL: 65+ (1 - PCV) PNEUMOCOCCAL: 65+ (1 - PCV) [facility] Start: 2015 PNEUMOVAX AGE 65 AND OVER WITH 5YR LOOKBACK (#1) PNEUMOVAX AGE 65 AND OVER WITH 5YR LOOKBACK (#1) [facility] Start: 2015 Screening for osteoporosis Bone Density Screening [facility] Start: 01-17-2013 Patient Education [facility] Work Phone: Start: 01-12-2013 Calcium urine quantitative timed specimen [facility] Work Phone: Start: 01-04-2013 Calcium mass conc CALCIUM SERUM (75432) [facility] Work Phone: Start: 01-04-2013 Calcium total [facility] Work Phone: Start: 12-24-2012 Calcium mass conc CALCIUM SERUM (79532) [facility] Work Phone: Start: 12-24-2012 Calcium total [facility] Work Phone: Start: 09-27-2012 Patient Education [facility] Work Phone: Start: 09-27-2012 Protein electrophoretic fractj&quantj serum [facility] Work Phone: Start: 09-27-2012 Iaadiadoo influenza [facility] Work Phone: Start: 09-08-2012 Provider Instructions for Treatment [facility] Work Phone: Start: 10-17-2011 Provider Instructions for Treatment [facility] Work Phone: Start: 08-04-2011 Comprehensive metabolic panel [facility] Work Phone: Start: 08-04-2011 25 hydroxy includes fractions if performed [facility] Work Phone: Start: 08-04-2011 Lipid panel [facility] Work Phone: Start: 04-07-2011 Lipid panel [facility] Work Phone: Start: 04-07-2011 Assay of thyroid stimulating hormone tsh [facility] Work Phone: Start: 04-07-2011 Thyrotropin Qn TSH (21669) [facility] Work Phone: Start: 04-07-2011 Calcium mass conc CALCIUM SERUM (40764) [facility] Work Phone: Start: 04-07-2011 Calcium total [facility] Work Phone: Start: 04-07-2011 25 hydroxy includes fractions if performed [facility] Work Phone: Start: 10-08-2010 Provider Instructions for Treatment [facility] Work Phone: Start: 10-08-2010 Calcium mass conc Calcium Serum (32542) [facility] Work Phone: Start: 10-08-2010 Calcium total [facility] Work Phone: Start: 10-08-2010 25 hydroxy includes fractions if performed [facility] Work Phone: Start: 06-24-2010 Lipid panel [facility] Work Phone: Start: 06-24-2010 Assay of parathormone [facility] Work Phone: Start: 06-24-2010 Comprehensive metabolic panel [facility] Work Phone: Start: 06-24-2010 Assay of thyroid stimulating hormone tsh [facility] Work Phone: Start: 06-24-2010 Thyrotropin Qn TSH (22724) [facility] Work Phone: Start: 04-23-2010 Provider Instructions for Treatment [facility] Work Phone: Start: 03-06-2010 Provider Instructions for Treatment [facility] Work Phone: Start: 2010 RSV Vaccine (1 - 1-dose 60+ series) RSV Vaccine (1 - 1-dose 60+ series) [facility] Start: 01-16-2010 Provider Instructions for Treatment [facility] Work Phone: Start: 09-27-2009 Provider Instructions for Treatment [facility] Work Phone: Start: 08-15-2009 Provider Instructions for Treatment [facility] Work Phone: Start: 06-25-2009 Patient Education [facility] Work Phone: Start: 06-25-2009 Provider Instructions for Treatment [facility] Work Phone: Start: 04-25-2009 Assay of triiodothyronine t3 free [facility] Work Phone: Start: 04-25-2009 T3 free mass conc T3, FREE (TRIDOTHYRONINE) (02685) [facility] Work Phone: Start: 04-25-2009 Assay of free thyroxine [facility] Work Phone: Start: 04-25-2009 T4 free mass conc T4, FREE (THYROXINE) (75581) [facility] Work Phone: Start: 04-25-2009 Microsomal antibodies each [facility] Work Phone: Start: 04-25-2009 Assay of thyroid stimulating hormone tsh [facility] Work Phone: Start: 04-25-2009 Thyrotropin Qn TSH (39554) [facility] Work Phone: Start: 04-25-2009 Hepatic function panel [facility] Work Phone: Start: 04-25-2009 Lipid panel [facility] Work Phone: Start: 04-25-2009 25 hydroxy includes fractions if performed [facility] Work Phone: Start: 01-24-2009 25 hydroxy includes fractions if performed [facility] Work Phone: Start: 01-24-2009 Lipid panel [facility] Work Phone: Start: 01-24-2009 Urnls dip stick/tablet rgnt auto w/o microscopy [facility] Work Phone: Start: 01-24-2009 Assay of thyroid stimulating hormone tsh [facility] Work Phone: Start: 01-24-2009 Thyrotropin Qn TSH (22168) [facility] Work Phone: Start: 01-24-2009 Comprehensive [...] Work Phone: Start: 12-21-2007 Lipid panel [facility] Work Phone: Start: 12-21-2007 Hepatic function panel [facility] Work Phone: Start: 09-07-2007 Provider Instructions for Treatment [facility] Work Phone: Start: 08-30-2007 Provider Instructions for Treatment [facility] Work Phone: Start: 07-05-2007 Comprehensive metabolic panel [facility] Work Phone: Start: 07-05-2007 Hepatic function panel [facility] Work Phone: Start: 07-05-2007 Lipid panel [facility] Work Phone: Start: 02-10-2007 Provider Instructions for Treatment [facility] Work Phone: Start: 12-22-2006 Hepatic function panel [facility] Work Phone: Comment on above: 3 mos Start: 12-22-2006 Lipid panel [facility] Work Phone: Start: 12-22-2006 Provider Instructions for Treatment [facility] Work Phone: Start: 08-26-2006 Provider Instructions for Treatment [facility] Work Phone: Start: 08-26-2006 Lipid panel [facility] Work Phone: Start: 08-26-2006 Hepatic function panel [facility] Work Phone: Comment on above: 3 months Start: 08-26-2006 1 25 dihydroxy includes fractions if performed [facility] Work Phone: Start: 01-31-2000 SHINGRIX VACCINE (1 of 2) SHINGRIX VACCINE (1 of 2) [facility] Start: 1995 COLOGUARD (FIT-DNA) COLOGUARD (FIT-DNA) [facility] Start: 1995 Colonoscopy COLONOSCOPY [facility] Start: 1995 COLORECTAL CANCER SCREENING COLORECTAL CANCER SCREENING [facility] Start: [address] COLONOGRAPHY [facility] Start: 1995 DIABETES SCREEN DIABETES SCREEN [facility] Start: 1995 Diabetes Screening Diabetes Screening [facility] Start: 1995 FECAL OCCULT BLOOD FECAL OCCULT BLOOD [facility] Start: 1995 Lipid panel Lipid Screening [facility] Start: 1995 LIPID SCREEN LIPID SCREEN [facility] Start: 1995 Screening for malignant neoplasm of colon [facility] Start: 1995 SIGMOIDOSCOPY SIGMOIDOSCOPY [facility] Start: 1990 Mammography MAMMOGRAM [facility] Start: 1990 Screening for malignant neoplasm of breast Mammogram Screening [facility] Start: 1969 Urine microalbumin profile [facility] Start: 01-31-1968 HEPATITIS C SCREENING HEPATITIS C SCREENING [facility] Start: 01-31-1968 Hepatitis C screening Hepatitis C Screening [facility] Start: 1962 Adult depression screening assessment DEPRESSION SCREENING [facility] Patient referral [facility] Work Phone: [facility] Work [...] cili 09-26-2021 COVID-Pfizer (10 MCG/0.2 ML) Sushma Valdessavanna [employer]IST Work Phone: [facility]; [facility] Work Phone: 01-07-2021 COVID-Pfizer (30 MCG/0.3 ML) Sushma Valdessavanna [employer] SE[employer]ETING STRATEGIST Work Phone: [facility]; [facility] Work Phone: 12-17-2020 COVID-Pfizer (30 MCG TRS-SUCR) Sushma Valdessavanna [employer] SE[employer] MARKETING STRATEGIST Work Phone: [facility]; [facility] Work Phone: Payers Date Payer Category Payer Self-pay [id number] 2018 Private Health Insurance AET[employer] A ETNA MEDICARE SUPPLEMENT [id number] 2018-Present [phone] [address] [address] [place] [address] Indemnity [id number] 2018 Private Health Insurance [employer]ET[employer] A ETNA MEDICARE SUPPLEMENT [id number] 2018-Present [phone] [address] [address] [place] [address] Indemnity [id number] 2018 Private Health Insurance [facility] [id number] 2015 Private Health Insurance [id number] 2015 Medicare MEDICARE MEDICAR E A AND B [id number] 2015-Present [phone] [place] [id number] Medicare [id number] 2015 Medicare MEDICARE MEDICAR E A AND B [id number] 2015-Present [phone] [place] [address] Medicare [id number] 2015 Medicare [id number] 2006 Unknown [id number] 1950 Unknown [id number] [id number] 1950 Unknown [id number]. 2.627 Unknown Unknown [id number]. 2.462 Unknown [id number] [id number]. 2.462 Unknown [id number] [id number]. 2.462 Unknown [id number] [id number]. 2.462 Unknown [id number] [id number]. 2.462 Unknown [id number]. 2.462 Unknown [id number]. 2.462 Unknown [id number] [id number]. 2.462 Unknown [id number] [id number]. 2.462 Unknown [id number] [id number]. 2.462 Unknown [id number] [id number]. 2.462 Unknown [id number]. 2.462 Social History Date Type Detail Facility Start: 01-09-2022 End: 02-09-2024 Alcohol Use Never smoker [facility] Work Phone: Comment on above: Occasional alcohol u se 2 QD Tobacco use: Never smoker. [facility] Work Phone: Comment on above: 11/05/11 Never smoker. [facility] Work Phone: Start: 12-05-2019 End: 09-04-2024 Tobacco smoking status NHIS Never smoked tobacco [facility] Start: 12-05-2019 End: 02-09-2024 Tobacco use and exposure Smokeless tobacco non-user [facility] Start: 01-09-2022 End: 02-09-2024 Alcohol intake Current drinker of alcohol (finding) [facility] Start: 1950 Sex Assigned At Not on file [facility] Start: 12-30-2021 End: 01-09-2022 Exposure to SARS-CoV-2 (event) Not sure [facility] Start: 05-06-2022 End: 12-21-2023 Tobacco smoking status NHIS Unknown if ever smoked [facility] Start: 1950 Sex Assigned At Female [facility] Sex Assigned At Sex [facility] Start: 01-09-2022 End: 02-09-2024 Tobacco use panel [facility] National Score (1-100), lower number is lower risk Not on file [facility] Start: 01-06-2025 Sex Female (finding) [facility] Goals Date Patient Goal Desired Activity /State Personal health goal Functional Status Date Assessment Result Facility 08-21-2023 Functional Status Awake, Up ad jaylon [facility] 08-21-2023 Functional Status Maintained, Less than 8 hours [facility] Mental Status Date Assessment Result Facility 08-21-2023 Mental Status Oriented x 4 [facility] [place] Clinical Notes 01-09-2022 to 01-04-2025 Note Date & Type Note Facility 01-04-2025 Discharge summary Note Date/Time January 04, 2025 7:00pm [facility] Physical Therapy [facility] [address] [place] [address] / REHABILITATION SERVICES DISCHARGE SUMMARY MR#: [id number] Acct: [id number] Name: CARMEN GARCIA Rep #: [id number] : 1950 74 From: Patsy John MP T Referring Dr.: Dr. Edvin Armijo MD Status: REG RCR Insurance: MEDICARE PART A B AETNA SR SUPPLEMENT INS Discharge Summary D/C summary: It has been my pleasure to treat CARMEN GARCIA referred by Dr. Edvin Armijo MD, with the diagnosis of L shoulder pain for a total of 8 visit(s). Discharge Date: 01/04/25 Please see the following information for a summary of their discharge status. Subjective Subjective: Pt reports that she is better but she still feels that she has room to grow. She has some pain with laying on it and she is stiff in her shoulder in the morning. She feels that she has enough exercises to do at home. Pain L shoulder pain: Pain Intensity (Out of 10): 0 Overall Improvement % Improvement: 50 Objective Objective/Function: Improved overall L shoulder AROM and strength with results below UE AROM: R shoulder flexion 140 and L 115 R shoulder abd 130 and L 79 R shoulder IR L1 and L PSIS R shoulder ER 71 and L 50) UE MMT R shoulder flexion 5.2 and L 7.6 R shoulder ABD 5.3 and L 6 R shoulder IR 6.4 and L 8.1 R shoulder ER 7.1 and L 9.1. Goals Goal 1:: I HEP Goal Progress: Goal Met Goal 2:: Increase L shoulder AROM (at the time of the eval: UE AROM: R shoulder flexion 140 and L 61 R shoulder abd 130 and L 54 R shoulder IR L1 and L PSIS R shoulder ER 71 and L 50) Goal Progress: Goal Met Goal 3:: Be able to use her L shoulder with her ADL's without pain Goal Progress: Progressing Goal 4:: Increase L shoulder strength (at the time of the eval: UE MMT R shoulder flexion 5.2 and L 2.1 R shoulder ABD 5.3 and L 1.2 R shoulder IR 6.4 and L 4.6 R shoulder ER 7.1 and L 6.6). Goal Progress: Goal Met Plan Plan: DC PT to indep HEP D/C Information Discharge Comments: DC PT to [facility] HEP d/c sentence: If there are questions or concerns regarding this patient's physical therapy, please feel free to call me at [phone]. Thank you for the referral of thispatient. Sincerely, DEYVI Shields Balance/Gait/Functional tests Balance/Special Test Scores Quick DASH Score: 18.1800 Improvement % Improvement: 50 <Electronically signed by Patsy John MPT> 01/04/25 1232 CC: VALENTIN Mcpherson; Dr. Edvin Armijo MD ~ Signed [facility] Work Phone: [phone]) 159-951203-26-2025 Discharge summary [facility] [address] [place] [address] [address] [place] [address] / REHABILITATION SERVICES DISCHARGE SUMMARY MR#: [id number] Acct: [id number] Name: CARMEN GARCIA Rep #: [id number] : 1950 74 From: Patsy John MP T Referring Dr.: Dr. Edvin Armijo MD Status: REG RCR Insurance: MEDICARE PART A B AETNA SR SUPPLEMENT INS Discharge Summary D/C summary: It has been my pleasure to treat CARMEN GARCIA referred by Dr. Edvin Armijo MD, with the diagnosis of L shoulder pain for a total of 8 visit(s). Discharge Date: 01/04/25 Please see the following information for a summary of their discharge status. Subjective Subjective: Pt reports that she is better but she still feels that she has room to grow. She has some pain with laying on it and she is stiff in her shoulder in the morning. She feels that she has enough exercises to do at home. Pain L shoulder pain: Pain Intensity (Out of 10): 0 Overall Improvement % Improvement: 50 Objective Objective/Function: Improved overall L shoulder AROM and strength with results below UE AROM: R shoulder flexion 140 and L 115 R shoulder abd 130 and L 79 R shoulder IR L1 and L PSIS R shoulder ER 71 and L 50) UE MMT R shoulder flexion 5.2 and L 7.6 R shoulder ABD 5.3 and L 6 R shoulder IR 6.4 and L 8.1 R shoulder ER 7.1 and L 9.1. Goals Goal 1:: I HEP Goal Progress: Goal Met Goal 2:: Increase L shoulder AROM (at the time of the eval: UE AROM: R shoulder flexion 140 and L 61 R shoulder abd 130 and L 54 R shoulder IR L1 and L PSIS R shoulder ER 71 and L 50) Goal Progress: Goal Met Goal 3:: Be able to use her L shoulder with her ADL's without pain Goal Progress: Progressing Goal 4:: Increase L shoulder strength (at the time of the eval: UE MMT R shoulder flexion 5.2 and L 2.1 R shoulder ABD 5.3 and L 1.2 R shoulder IR 6.4 and L 4.6 R shoulder ER 7.1 and L 6.6). Goal Progress: Goal Met Plan Plan: DC PT to indep HEP D/C Information Discharge Comments: DC PT to [facility] HEP d/c sentence: If there are questions or concerns regarding this patient's physical therapy, please feel free to call me at [phone]. Thank you for the referral of thispatient. Sincerely, Patsy John, DEYVI Balance/Gait/Functional tests Balance/Special Test Scores Quick DASH Score: 18.1800 Improvement % Improvement: 50 01/04/25 1232 CC: VALENTIN Mcpherson; Dr. Edvin Armijo MD ~ Signed [facility]01-27-2025 Evaluation note* Diagnosis Onset Date Resolution Status Admit Date Left shoulder pain acute r y 2024 3:23pm Parkinson's disease chronic Octua ry 2024 3:23pm Low back pain inactive October 3:23pm [facility] Work Phone: 1(662) 580-894304-30-2024 NoteHNO ID: [id number] Author: MARICRUZ ARMSTRONG, DO Service: ? Author Type: Physician Type: Progress Notes Filed: 02/09/2024 11:54 Note Text: Heart , Vascular and Thoracic [place] DEPARTMENT OF VASCULAR SURGERY OUTPATIENT VISIT DATE [...] PO DAILY April 18, 2020 9:41am 04-18-2020 [facility] ([id number]) levothyroxine 112 mcg tab 112 mcg, levothyroxine [...] Garcia DATE: February 09, 2024 TIME: 9:30 [facility]04-30-2024 History of Present illness Narrative* Maricruz Armstrong, DO - 02/09/2024 9:28 AM EDT Images from the original note were not included. Heart , Vascular and Thoracic [place] DEPARTMENT OF VASCULAR SURGERY OUTPATIENT VISIT DATE [...] PO DAILY April 18, 2020 9:41am 04-18-2020 [facility] ([id number]) levothyroxine 112 mcg tab 112 mcg, levothyroxine [...] by mouth once daily. (Patient not taking: Reportedon 01/09/2022 ) ALLERGIES: ALLERGIES Allergen Reactions Codeine [...] 2024 TIME: 9:30 AM [facility] Miscellaneous Notes* Telephone Encounter - Erica Fierro - 12/23/2023 8:29 AM EDT Spoke to Pt about her need for an annual follow up visit. Pt wanted to remain w/ vascular in [place]. Provided Dr. Armstrong's name & phone #[phone]. documented in [facility] Evaluation + Plan note Extracted from: Title:Clinical Document Author:DAMIAN HARTMANN Date:08/21/23 [facility] ADMISSION HISTORY AN D PHYSICIAL CHIEF COMPLAINT: HISTORY OF PRESENT ILLNESS: REVIEW OF SYSTEMS: ACTIVE PROBLEMS: (5) Hypercalcemia (632365576) HYPERTENSION (997.91) Hypothyroidism (66750218) Parkinson disease (09080662) Sleep apnea (712601371) MEDICATIONS: Active Inpt Meds: None Active PRN Meds: None One Time Meds: None Active IV Meds: Lactated Ringers Infusion 1,000 mL (LR 1,000 mL) Start: 08/21/23 7:59:00 EST, Rate: 50 mL/hr, 08/21/23 7:59:00 EST ALLERGIES: (4) Bleach Crestor Lipitor Zetia FAMILY HISTORY: SOCIAL HISTORY: PHYSICAL EXAM: VITALS: RjfrsvTznoEIXwurgDXRfZ6QIO9PyviGf(kg) 08/21 08:2136.4--479948SG26/10 90.9 24 Hr Tmax: 36.4 at 08/21 [...] Extracted from: Title:Clinical Document Author:DAMIAN HARTMANN Date:08/21/23 [facility] ADMISSION HISTORY AN D PHYSICIAL CHIEF COMPLAINT: HISTORY OF PRESENT ILLNESS: REVIEW OF SYSTEMS: ACTIVE PROBLEMS: (5) Hypercalcemia (145353799) HYPERTENSION (997.91) Hypothyroidism (00002447) Parkinson disease (97736486) Sleep apnea (406347437) MEDICATIONS: Active Inpt Meds: None Active PRN Meds: None One Time Meds: None Active IV Meds: Lactated Ringers Infusion 1,000 mL (LR 1,000 mL) Start: 08/21/23 7:59:00 EST, Rate: 50 mL/hr, 08/21/23 7:59:00 EST ALLERGIES: (4) Bleach Crestor Lipitor Zetia FAMILY HISTORY: SOCIAL HISTORY: PHYSICAL EXAM: VITALS: OmhgbfOfuaZEUjkgiLMYqM5JJX0PyjzYz(kg) 08/21 08:2136.4--568025AZ22/10 90.9 24 Hr Tmax: 36.4 at 08/21 [...] changes to the H&P unless noted below. [facility] 11-10-2023 Hospital Discharge instructions Patient Education 08/21/2023 [...] before eating solid foods. General instructions Take inaa-tmm-wenqczy and prescription medicines only as told by [...] 01/18/2017 Document Revised: 12/27/2018 Document Reviewed: 01/18/2017 Pocketbook Patient Education 2020 [employer] 08/21/2023 10:11:25 Colonoscopy, Adult, Care After Colonoscopy, [...] a slower pace than normal. ?Eat soft, fkus-sn-zjdgcv foods. Take lozi-edf-cybkpcs or prescription medicines only as told by [...] 05/12/2005 Document Revised: 07/21/2018 Document Reviewed: 12/09/2016 Pocketbook Patient Education [employer]. Follow Up Care 07/28/2023 07:58:01 With:DAMIAN HARTMANN MD Address: [address] [facility] [address] [place] [address] [phone] When:Within 4 Year(s) Comments:repeat colonoscopy in 4-5 years [facility] 11-10-2023 Note Discharge Instructions Thank you for allowing [facility] to assist you with your healthcare needs. The following is importantdischarge information regarding your hospital visit. Your Care Team CINDY MCPHERSON APRN-SHELIA Hartmann What to do next Follow Up Appointments Follow Up with DAMIAN HARTMANN MD When In 4 years Why: repeat colonoscopy in 4-5 years Where: [address] [facility] [address] [place] [address] [phone] The Following Activity and Diet Have Been [...] before eating solid foods. General instructions Take ayem-hcq-aqyujpu and prescription medicines only as told by [...] 01/18/2017 Document Revised: 12/27/2018 Document Reviewed: 01/18/2017 Pocketbook Patient Education 2020 [employer]. Colonoscopy, Adult, Care After This sheet gives [...] slower pace than normal. ? Eat soft, aeod-pf-okotfr foods. Take jkay-fgx-ggbpnpo or prescription medicines only as told by [...] 05/12/2005 Document Revised: 07/21/2018 Document Reviewed: 12/09/2016 Pocketbook Patient Education 2020 [employer] Additional Information VACCINATE! IT SAVES LIVES! Members of the community who have not yet received the COVID-19 vaccine and would like to receive it can visit one of [facility] vaccine clinics. There are many vaccine clinic locations within the [facility]. For locations and available times, please visit [email or web address] It is important to note that some COVID mobile vaccine clinics are held outdoors and may be canceled in rainy or stormy conditions. To learn more about pediatric vaccinations (ages 5-11), we invite you to visit the [facility] webpage. [email or web address] learn more about the COVID-19 vaccine, we invite you to visit the CDC website for a list of frequently asked questions.https://www.cdc.gov/coronavirus/2019-ncov/vaccines/faq.html [facility] Patient Portal Access Instructions: Stay connected with your healthcare team and access your personal medical information anytime with the [facility] Patient Portal. Please follow the directions below to create your [facility] account: 1.Access the email account you provided upon registration to the hospital/physician office.2.Look for an invitation email from [facility].3.Open the email and access the invitation link: AcceptInvitation to [facility].4.Fill in the required baeza to create your account. To access your account, visit [email or web address]. Click the blue button labeled Access Patient Portal and then log in with the username and password that you created in the steps above. You will be able to view your test results, lab results, a summary of your visits, upcoming appointments and more. There is also a convenient messaging option where you can send secure messages to your buySAFEvider. In addition, you will have the ability to download any documents or summaries to your computer and/or send the information securely to a physician. Remember that your healthcare information is confidential, so carefully consider who you will allowto register on the [facility] Patient Portal for access to your information. You can also access the [facility] Patient Portal on the [employer] [facility]where varun. Simply click on Patient Portal and then log into your account. If you would like to receive a full copy of your medical records, please contact the [facility] Medical Records Department by calling [phone], Thursday through Thursday between 8 a.m. and [...] Call your local pharmacy or go to http://bit.ly/[email or web address] to find one close to you.3.Make use of household items: Use cat litter or old coffee grounds to dispose medications if other options arenot available. Mix your drugs with these household products, seal them in an airtight container andthrow it into the garbage. Call [facility]: [phone] to be sure your drugs can be [...] aware that I should contact my doctor. Patient/[employer] Signature: Date/Time: Relationship to Patient: Witness Name/Signature: Date/Time: [facility]11-10-2023 Note LURAY ADMISSION HISTORY AND PHYSICIAL CHIEF COMPLAINT: HISTORY OF PRESENT ILLNESS: REVIEW OF SYSTEMS: ACTIVE PROBLEMS: (5) Hypercalcemia (238063020) HYPERTENSION (997.91) Hypothyroidism (67885231) Parkinson disease (52480983) Sleep apnea (883077520) MEDICATIONS: Active Inpt Meds: None Active PRN Meds: None One Time Meds: None Active IV Meds: Lactated Ringers Infusion 1,000 mL (LR 1,000 mL) Start: 08/21/23 7:59:00 EST, Rate: 50 mL/hr, 08/21/23 7:59:00 EST ALLERGIES: (4) Bleach Crestor Lipitor Zetia FAMILY HISTORY: SOCIAL HISTORY: PHYSICAL EXAM: VITALS: ZmzjmbScrlLLQnkquTHYgP8IWQ3WhizKc(kg) 08/21 08:2136.4--410117LM76/10 90.9 24 Hr Tmax: 36.4 at 08/21 [...] DAMIAN HARTMANN MD on 08/21/2023 09:46 AM [facility]11-10-2023 Note LURAY ADMISSION HISTORY AND PHYSICIAL CHIEF COMPLAINT: HISTORY OF PRESENT ILLNESS: REVIEW OF SYSTEMS: ACTIVE PROBLEMS: (5) Hypercalcemia (875497961) HYPERTENSION (997.91) Hypothyroidism (46831684) Parkinson disease (90142536) Sleep apnea (913214692) MEDICATIONS: Active Inpt Meds: None Active PRN Meds: None One Time Meds: None Active IV Meds: Lactated Ringers Infusion 1,000 mL (LR 1,000 mL) Start: 08/21/23 7:59:00 EST, Rate: 50 mL/hr, 08/21/23 7:59:00 EST ALLERGIES: (4) Bleach Crestor Lipitor Zetia FAMILY HISTORY: SOCIAL HISTORY: PHYSICAL EXAM: VITALS: XpnacfRhbdJROsmfuPUFhE4ZMO0JmvnYs(kg) 08/21 08:2136.4--424771PH74/10 90.9 24 Hr Tmax: 36.4 at 08/21 [...] DAMIAN HARTMANN MD on 08/21/2023 09:39 AM [facility]11-10-2023 Anesthesiology Consult note Patient: CARMEN GARCIA Age: 73 years Sex: Female : 1950 Associated Diagnoses: None Author: MIL CRESPO GENERAL OFFICE ASSOCIATE-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 Procedure history: Cholecystectomy (78772740). Cardioversion (027950526). Complete thyroidectomy (11136307). Hysterectomy (791128925). Colonoscopy (238767982). 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: Self Current Home Treatments CPAP Special Services [...] Resp Rate H 22br/min (AUG 21 08:) OUO815 mmHg (AUG 21:) DBP71 mmHg (AUG 21) BMI36.05 (AUG 21) Measurements from flowsheet : Measurements 08/21/2023 8:21 EST Height 158.8 cm Admission Weight 90.9 kg Weight Method Stated [place] Body Weight 51.30 kg BSA Admission 1.92 [...] Allergies Yes Anesthesia Extension Set Applied Yes Leather Softener On Yes Colon Prep Results Good Consent [...] Person #1 We May Share [place] [phone] Designated Person #1 Relationship Daughter Privacy Restrictions Requested None Height 158.8 cm Admission Weight 90.9 kg Weight Method Stated [place] Body Weight 51.30 kg BSA Admission 1.92 [...] Status N/A Skin Temperature Warm Skin Description Huetter, Dry Skin Integrity Intact Skin Moisture General [...] Method Explanation, Printed materials Preferred Spoken Language Uruguayan Preferred Written Language Uruguayan Pt./Caregiver Remote Cont.Visual Monitor Demonstrates Information Given [...] Note-Nursing Procedure/Therapy Intake . Assessment and Plan [place] Society of Anesthesiologists (ASA) physical status classification: Class III. Anesthetic Preoperative Plan Anesthetic technique: MAC. Postoperative pain management: Per surgeon. Risks discussed: nausea, vomiting, hypotension, allergic reaction, serious complications. Informed consent: signed by patient. Digitally Signed by MIL CRESPO on 08/21/2023 09:35 AM [facility]03-13-2023 Miscellaneous Notes* Telephone Encounter - Viola Moss [...] call with the results [facility] Miscellaneous Notes* Telephone Encounter - Danica Mckee - 12/17/2022 12:54 PM EST Images from the original note were not included. Patient stated that she would like to receive a phone call with the results when they are in. MD Danica Murphy; Viola Moss APRN.PAID SEARCH MARKETING STRATEGIST She doesn't have significant carotid stenosis per DJW last note. I would either offer her a phone visit with Teresa after her US to go over results, or I am comfortable with her waiting until I am backfrom maternity leave to have an in person visit in [place]. Whichever she prefers. [facility] History of Present illness Narrative* Maikel Avila [...] artery disease. This note was generated with Snippets dictation software. It may contain incorrect words, spelling, and punctuation and that were not noted in review of the chart prior to signing. I spent 20 minutes in the visit, with more than 50% of the total [id number]-ml-[id number] time of the visit in counseling / coordination of care. [facility] [place] [facility]* Diagnosis Carotid stenosis, asymptomatic, bilateral- Primary documented in this encounter [facility] note* Diagnosis Onset Date Resolution Status Parkinson's disease chronic Restless legs syndrome chron ic History of rectal bleeding r esolved [facility] Work Phone: Evaluation note* Diagnosis Carotid stenosis, asymptomatic, bilateral- Primary documented in this encounter [facility] note* Diagnosis Onset Date Resolution Status Parkinson's disease chronic Restless legs syndrome chron ic [facility] Work Phone: Evaluation note* Diagnosis Onset Date Resolution Status Parkinson's disease [facility] Work Phone: Evaluation note* Diagnosis Bilateral carotid artery stenosis- Primary Occlusion and stenosis of carotid artery without mention of cerebral infarction documented in this encounter [facility] course Narrative No data available for this section [facility] Instructions* Name Dates Details Patient Instructions Indication:Nonsmoker Start:30-Oct-2020 Instruction Type:Provider Instructions for Treatment How to Access Memory [employer] Online using Patient Portal and 3rd Constitution Party Apps Indication:Nonsmoker Start:30-Oct-2020 Instruction Type:Patient Education How to access health Numeratea tion online Indication:Nonsmoker Start:14-Sep-2020 Instruction Type:Patient Education [...] Informa tion Online using Patient Portal and Design Clinicals Constitution Party Apps Indication:BMI 35.0-35.9,adult Start:08-Oct-2021 Instruction Type:Patient Education Patient Instructions Indication:Nonsmoker Start:16-Aug-2021 Instruction Type:Provider Instructions for Treatment How to Access Health Informa tion Online using Patient Portal and Design Clinicals Constitution Party Apps Indication:Nonsmoker Start:16-Aug-2021 Instruction Type:Patient Education Patient Instructions Indication:Ankle pain, left Start:13-Aug-2021 Instruction Type:Provider Instructions for Treatment How to Access Health Informa tion Online using Patient Portal and 3rd Constitution Party Apps Indication:Ankle pain, left Start:13-Aug-2021 Instruction Type:Patient Education Patient Instructions Indication:Nonsmoker Start:29-Apr-2021 Instruction Type:Provider Instructions for Treatment How to Access Health Informa tion Online using Patient Portal and 3rd Constitution Party Apps Indication:Nonsmoker Start:29-Apr-2021 Instruction Type:Patient Education Patient Instructions Indication:Nonsmoker Start:30-Oct-2020 Instruction Type:Provider Instructions for Treatment How to Access Health Informa tion Online using Patient Portal and 3rd Constitution Party Apps Indication:Nonsmoker Start:30-Oct-2020 Instruction Type:Patient Education How [...] Informa tion Online using Patient Portal and [employer] Indication:Nonsmoker Start:02-Dec-2021 Instruction Type:Patient Education Patient Instructions Indication:Nonsmoker Start:02-Dec-2021 Instruction Type:Provider Instructions for Treatment Patient Instructions Indication:BMI 35.0-35.9,adult Start:08-Oct-2021 Instruction Type:Provider Instructions for Treatment How to Access Health Informa tion Online using Patient Portal and Automated Trading Desk Apps Indication:BMI 35.0-35.9,adult Start:08-Oct-2021 Instruction Type:Patient Education Patient Instructions Indication:Nonsmoker Start:16-Aug-2021 Instruction Type:Provider Instructions for Treatment How to Access Health Informa tion Online using Patient Portal and Automated Trading Desk Apps Indication:Nonsmoker Start:16-Aug-2021 Instruction Type:Patient Education Patient Instructions Indication:Ankle pain, left Start:13-Aug-2021 Instruction Type:Provider Instructions for Treatment How to Access Health Informa tion Online using Patient Portal and 3rd Constitution Party Apps Indication:Ankle pain, left Start:13-Aug-2021 Instruction Type:Patient Education Patient Instructions Indication:Nonsmoker Start:29-Apr-2021 Instruction Type:Provider Instructions for Treatment How to Access Health Informa tion Online using Patient Portal and 3rd Constitution Party Apps Indication:Nonsmoker Start:29-Apr-2021 Instruction Type:Patient Education Patient Instructions Indication:Nonsmoker Start:30-Oct-2020 Instruction Type:Provider Instructions for Treatment How to Access Health Informa tion Online using Patient Portal and 3rd Constitution Party Apps Indication:Nonsmoker Start:30-Oct-2020 Instruction Type:Patient Education How [...] tion Online using Patient Portal and 3rd Constitution Party Apps Indication:Nonsmoker Start:02-Dec-2021 Instruction Type:Patient Education Patient Instructions Indication:Nonsmoker Start:02-Dec-2021 Instruction Type:Provider Instructions for Treatment Patient Instructions Indication:BMI 35.0-35.9,adult Start:08-Oct-2021 Instruction Type:Provider Instructions for Treatment How to Access Health Informa tion Online using Patient Portal and 3rd Constitution Party Apps Indication:BMI 35.0-35.9,adult Start:08-Oct-2021 Instruction Type:Patient Education Patient Instructions Indication:Nonsmoker Start:16-Aug-2021 Instruction Type:Provider Instructions for Treatment How to Access Health Informa tion Online using Patient Portal and 3rd Constitution Party Apps Indication:Nonsmoker Start:16-Aug-2021 Instruction Type:Patient Education Patient Instructions Indication:Ankle pain, left Start:13-Aug-2021 Instruction Type:Provider Instructions for Treatment How to Access Health Informa tion Online using Patient Portal and 3rd Constitution Party Apps Indication:Ankle pain, left Start:13-Aug-2021 Instruction Type:Patient Education Patient Instructions Indication:Nonsmoker Start:29-Apr-2021 Instruction Type:Provider Instructions for Treatment How to Access Health Informa tion Online using Patient Portal and 3rd Constitution Party Apps Indication:Nonsmoker Start:29-Apr-2021 Instruction Type:Patient Education Patient Instructions Indication:Nonsmoker Start:30-Oct-2020 Instruction Type:Provider Instructions for Treatment How to Access Health Informa tion Online using Patient Portal and 3rd Constitution Party Apps Indication:Nonsmoker Start:30-Oct-2020 Instruction Type:Patient Education How [...] tion Online using Patient Portal and 3rd Constitution Party Apps Indication:Fever Start:28-Apr-2022 Instruction Type:Patient Education How to Access Health Informa tion Online using Patient Portal and Design Clinicals Constitution Party Apps Indication:Nonsmoker Start:02-Dec-2021 Instruction Type:Patient Education Patient Instructions Indication:Nonsmoker Start:02-Dec-2021 Instruction Type:Provider Instructions for Treatment Patient Instructions Indication:BMI 35.0-35.9,adult Start:08-Oct-2021 Instruction Type:Provider Instructions for Treatment How to Access Health Informa tion Online using Patient Portal and 3rd Constitution Party Apps Indication:BMI 35.0-35.9,adult Start:08-Oct-2021 Instruction Type:Patient Education Patient Instructions Indication:Nonsmoker Start:16-Aug-2021 Instruction Type:Provider Instructions for Treatment How to Access Health Informa tion Online using Patient Portal and 3rd Constitution Party Apps Indication:Nonsmoker Start:16-Aug-2021 Instruction Type:Patient Education Patient Instructions Indication:Ankle pain, left Start:13-Aug-2021 Instruction Type:Provider Instructions for Treatment How to Access Health Informa tion Online using Patient Portal and Design Clinicals Constitution Party Apps Indication:Ankle pain, left Start:13-Aug-2021 Instruction Type:Patient Education Patient Instructions Indication:Nonsmoker Start:29-Apr-2021 Instruction Type:Provider Instructions for Treatment How to Access Health Informa tion Online using Patient Portal and 3rd Constitution Party Apps Indication:Nonsmoker Start:29-Apr-2021 Instruction Type:Patient Education Patient Instructions Indication:Nonsmoker Start:30-Oct-2020 Instruction Type:Provider Instructions for Treatment How to Access Health Informa tion Online using Patient Portal and 3rd Constitution Party Apps Indication:Nonsmoker Start:30-Oct-2020 Instruction Type:Patient Education How [...] tion Online using Patient Portal and 3rd Constitution Party Apps Indication:Fever Start:28-Apr-2022 Instruction Type:Patient Education How to Access Health Informa tion Online using Patient Portal and 3rd Constitution Party Apps Indication:Nonsmoker Start:02-Dec-2021 Instruction Type:Patient Education Patient Instructions Indication:Nonsmoker Start:02-Dec-2021 Instruction Type:Provider Instructions for Treatment Patient Instructions Indication:BMI 35.0-35.9,adult Start:08-Oct-2021 Instruction Type:Provider Instructions for Treatment How to Access Health Informa tion Online using Patient Portal and 3rd Constitution Party Apps Indication:BMI 35.0-35.9,adult Start:08-Oct-2021 Instruction Type:Patient Education Patient Instructions Indication:Nonsmoker Start:16-Aug-2021 Instruction Type:Provider Instructions for Treatment How to Access Health Informa tion Online using Patient Portal and 3rd Constitution Party Apps Indication:Nonsmoker Start:16-Aug-2021 Instruction Type:Patient Education Patient Instructions Indication:Ankle pain, left Start:13-Aug-2021 Instruction Type:Provider Instructions for Treatment How to Access Health Informa tion Online using Patient Portal and 3rd Constitution Party Apps Indication:Ankle pain, left Start:13-Aug-2021 Instruction Type:Patient Education Patient Instructions Indication:Nonsmoker Start:29-Apr-2021 Instruction Type:Provider Instructions for Treatment How to Access Health Informa tion Online using Patient Portal and 3rd Constitution Party Apps Indication:Nonsmoker Start:29-Apr-2021 Instruction Type:Patient Education Patient Instructions Indication:Nonsmoker Start:30-Oct-2020 Instruction Type:Provider Instructions for Treatment How to Access Health Informa tion Online using Patient Portal and 3rd Constitution Party Apps Indication:Nonsmoker Start:30-Oct-2020 Instruction Type:Patient Education How [...] Informa tion Online using Patient Portal and Design Clinicals Constitution Party Apps Indication:Fever Start:28-Apr-2022 Instruction Type:Patient Education How to Access Health Informa tion Online using Patient Portal and Automated Trading Desk Apps Indication:Nonsmoker Start:02-Dec-2021 Instruction Type:Patient Education Patient Instructions Indication:Nonsmoker Start:02-Dec-2021 Instruction Type:Provider Instructions for Treatment Patient Instructions Indication:BMI 35.0-35.9,adult Start:08-Oct-2021 Instruction Type:Provider Instructions for Treatment How to Access Health Informa tion Online using Patient Portal and 3rd Constitution Party Apps Indication:BMI 35.0-35.9,adult Start:08-Oct-2021 Instruction Type:Patient Education Patient Instructions Indication:Nonsmoker Start:16-Aug-2021 Instruction Type:Provider Instructions for Treatment How to Access Health Informa tion Online using Patient Portal and Design Clinicals Constitution Party Apps Indication:Nonsmoker Start:16-Aug-2021 Instruction Type:Patient Education Patient Instructions Indication:Ankle pain, left Start:13-Aug-2021 Instruction Type:Provider Instructions for Treatment How to Access Health Informa tion Online using Patient Portal and 3rd [employer] Party Apps Indication:Ankle pain, left Start:13-Aug-2021 Instruction Type:Patient Education Patient Instructions Indication:Nonsmoker Start:29-Apr-2021 Instruction Type:Provider Instructions for Treatment How to Access Health Informa tion Online using Patient Portal and 3rd [employer] Party Apps Indication:Nonsmoker Start:29-Apr-2021 Instruction Type:Patient Education Patient Instructions Indication:Nonsmoker Start:30-Oct-2020 Instruction Type:Provider Instructions for Treatment How to Access Health Informa tion Online using Patient Portal and 3rd [employer] Party Apps Indication:Nonsmoker Start:30-Oct-2020 Instruction Type:Patient Education How [...] tion Online using Patient Portal and 3rd Constitution Party Apps Indication:BMI 36.0-36.9,adult Start:29-Aug-2022 Instruction Type:Patient Education Patient Instructions Indication:COVID Start:30-Apr-2022 Instruction Type:Provider Instructions for Treatment Patient Instructions Indication:Fever Start:28-Apr-2022 Instruction Type:Provider Instructions for Treatment How to Access Health Informa tion Online using Patient Portal and 3rd [employer] Party Apps Indication:Fever Start:28-Apr-2022 Instruction Type:Patient Education How to Access Health Informa tion Online using Patient Portal and 3rd [employer] Party Apps Indication:Nonsmoker Start:02-Dec-2021 Instruction Type:Patient Education Patient Instructions Indication:Nonsmoker Start:02-Dec-2021 Instruction Type:Provider Instructions for Treatment Patient Instructions Indication:BMI 35.0-35.9,adult Start:08-Oct-2021 Instruction Type:Provider Instructions for Treatment How to Access Health Informa tion Online using Patient Portal and 3rd Constitution Party Apps Indication:BMI 35.0-35.9,adult Start:08-Oct-2021 Instruction Type:Patient Education Patient Instructions Indication:Nonsmoker Start:16-Aug-2021 Instruction Type:Provider Instructions for Treatment How to Access Health Informa tion Online using Patient Portal and 3rd Constitution Party Apps Indication:Nonsmoker Start:16-Aug-2021 Instruction Type:Patient Education Patient Instructions Indication:Ankle pain, left Start:13-Aug-2021 Instruction Type:Provider Instructions for Treatment How to Access Health Informa tion Online using Patient Portal and 3rd [employer] Party Apps Indication:Ankle pain, left Start:13-Aug-2021 Instruction Type:Patient Education Patient Instructions Indication:Nonsmoker Start:29-Apr-2021 Instruction Type:Provider Instructions for Treatment How to Access Health Informa tion Online using Patient Portal and 3rd [employer] Party Apps Indication:Nonsmoker Start:29-Apr-2021 Instruction Type:Patient Education Patient Instructions Indication:Nonsmoker Start:30-Oct-2020 Instruction Type:Provider Instructions for Treatment How to Access Health Informa tion Online using Patient Portal and 3rd [employer] Party Apps Indication:Nonsmoker Start:30-Oct-2020 Instruction Type:Patient Education How [...] Informa tion Online using Patient Portal and Automated Trading [employer]k Apps Indication:BMI 36.0-36.9,adult Start:29-Aug-2022 Instruction Type:Patient Education Patient Instructions Indication:COVID Start:30-Apr-2022 Instruction Type:Provider Instructions for Treatment Patient Instructions Indication:Fever Start:28-Apr-2022 Instruction Type:Provider Instructions for Treatment How to Access Health Informa tion Online using Patient Portal and 3rd [employer] Party Apps Indication:Fever Start:28-Apr-2022 Instruction Type:Patient Education How to Access Health Informa tion Online using Patient Portal and 3rd [employer] Party Apps Indication:Nonsmoker Start:02-Dec-2021 Instruction Type:Patient Education Patient Instructions Indication:Nonsmoker Start:02-Dec-2021 Instruction Type:Provider Instructions for Treatment Patient Instructions Indication:BMI 35.0-35.9,adult Start:08-Oct-2021 Instruction Type:Provider Instructions for Treatment How to Access Health Informa tion Online using Patient Portal and 3rd [employer] Party Apps Indication:BMI 35.0-35.9,adult Start:08-Oct-2021 Instruction Type:Patient Education Patient Instructions Indication:Nonsmoker Start:16-Aug-2021 Instruction Type:Provider Instructions for Treatment How to Access Health Informa tion Online using Patient Portal and 3rd [employer] Party Apps Indication:Nonsmoker Start:16-Aug-2021 Instruction Type:Patient Education Patient Instructions Indication:Ankle pain, left Start:13-Aug-2021 Instruction Type:Provider Instructions for Treatment How to Access Health Informa tion Online using Patient Portal and 3rd [employer] Party Apps Indication:Ankle pain, left Start:13-Aug-2021 Instruction Type:Patient Education Patient Instructions Indication:Nonsmoker Start:29-Apr-2021 Instruction Type:Provider Instructions for Treatment How to Access Health Informa tion Online using Patient Portal and 3rd [employer] Party Apps Indication:Nonsmoker Start:29-Apr-2021 Instruction Type:Patient Education Patient Instructions Indication:Nonsmoker Start:30-Oct-2020 Instruction Type:Provider Instructions for Treatment How to Access Health Informa tion Online using Patient Portal and 3rd [employer] Apps Indication:Nonsmoker Start:30-Oct-2020 Instruction Type:Patient Education How [...] Informa tion Online using Patient Portal and Automated Trading [employer]k Apps Indication:BMI 36.0-36.9,adult Start:29-Aug-2022 Instruction Type:Patient Education Patient Instructions Indication:COVID Start:30-Apr-2022 Instruction Type:Provider Instructions for Treatment Patient Instructions Indication:Fever Start:28-Apr-2022 Instruction Type:Provider Instructions for Treatment How to Access Health Informa tion Online using Patient Portal and Automated Trading [employer]k Apps Indication:Fever Start:28-Apr-2022 Instruction Type:Patient Education How to Access Health Informa tion Online using Patient Portal and Design [employer] Apps Indication:Nonsmoker Start:02-Dec-2021 Instruction Type:Patient Education Patient Instructions Indication:Nonsmoker Start:02-Dec-2021 Instruction Type:Provider Instructions for Treatment Patient Instructions Indication:BMI 35.0-35.9,adult Start:08-Oct-2021 Instruction Type:Provider Instructions for Treatment How to Access Health Informa tion Online using Patient Portal and Design [employer] Apps Indication:BMI 35.0-35.9,adult Start:08-Oct-2021 Instruction Type:Patient Education Patient Instructions Indication:Nonsmoker Start:16-Aug-2021 Instruction Type:Provider Instructions for Treatment How to Access Health Informa tion Online using Patient Portal and 3rd [employer] Apps Indication:Nonsmoker Start:16-Aug-2021 Instruction Type:Patient Education Patient Instructions Indication:Ankle pain, left Start:13-Aug-2021 Instruction Type:Provider Instructions for Treatment How to Access Health Informa tion Online using Patient Portal and 3rd [employer] Apps Indication:Ankle pain, left Start:13-Aug-2021 Instruction Type:Patient Education Patient Instructions Indication:Nonsmoker Start:29-Apr-2021 Instruction Type:Provider Instructions for Treatment How to Access Health Informa tion Online using Patient Portal and 3rd [employer] Apps Indication:Nonsmoker Start:29-Apr-2021 Instruction Type:Patient Education Patient Instructions Indication:Nonsmoker Start:30-Oct-2020 Instruction Type:Provider Instructions for Treatment How to Access Health Informa tion Online using Patient Portal and 3rd [employer] Apps Indication:Nonsmoker Start:30-Oct-2020 Instruction Type:Patient Education How [...] tion Online using Patient Portal and 3rd [employer] Apps Indication:Hypertension Start:13-Feb-2023 Instruction Type:Patient Education Patient Instructions Indication:BMI 36.0-36.9,adult Start:29-Aug-2022 Instruction Type:Provider Instructions for Treatment How to Access Health Informa tion Online using Patient Portal and 3rd [employer] Apps Indication:BMI 36.0-36.9,adult Start:29-Aug-2022 Instruction Type:Patient Education Patient Instructions Indication:COVID Start:30-Apr-2022 Instruction Type:Provider Instructions for Treatment Patient Instructions Indication:Fever Start:28-Apr-2022 Instruction Type:Provider Instructions for Treatment How to Access Health Informa tion Online using Patient Portal and 3rd [employer] Apps Indication:Fever Start:28-Apr-2022 Instruction Type:Patient Education How to Access Health Informa tion Online using Patient Portal and 3rd [employer] Apps Indication:Nonsmoker Start:02-Dec-2021 Instruction Type:Patient Education Patient Instructions Indication:Nonsmoker Start:02-Dec-2021 Instruction Type:Provider Instructions for Treatment Patient Instructions Indication:BMI 35.0-35.9,adult Start:08-Oct-2021 Instruction Type:Provider Instructions for Treatment How to Access Health Informa tion Online using Patient Portal and 3rd [employer] Apps Indication:BMI 35.0-35.9,adult Start:08-Oct-2021 Instruction Type:Patient Education Patient Instructions Indication:Nonsmoker Start:16-Aug-2021 Instruction Type:Provider Instructions for Treatment How to Access Health Informa tion Online using Patient Portal and 3rd [employer] Apps Indication:Nonsmoker Start:16-Aug-2021 Instruction Type:Patient Education Patient Instructions Indication:Ankle pain, left Start:13-Aug-2021 Instruction Type:Provider Instructions for Treatment How to Access Health Informa tion Online using Patient Portal and 3rd [employer] Apps Indication:Ankle pain, left Start:13-Aug-2021 Instruction Type:Patient Education Patient Instructions Indication:Nonsmoker Start:29-Apr-2021 Instruction Type:Provider Instructions for Treatment How to Access Health Informa tion Online using Patient Portal and 3rd [employer] Apps Indication:Nonsmoker Start:29-Apr-2021 Instruction Type:Patient Education Patient Instructions Indication:Nonsmoker Start:30-Oct-2020 Instruction Type:Provider Instructions for Treatment How to Access Health Informa tion Online using Patient Portal and 3rd [employer] Apps Indication:Nonsmoker Start:30-Oct-2020 Instruction Type:Patient Education How [...] tion Online using Patient Portal and 3rd [employer] Apps Indication:Hypertension Start:13-Feb-2023 Instruction Type:Patient Education Patient Instructions Indication:BMI 36.0-36.9,adult Start:29-Aug-2022 Instruction Type:Provider Instructions for Treatment How to Access Health Informa tion Online using Patient Portal and 3rd [employer] Apps Indication:BMI 36.0-36.9,adult Start:29-Aug-2022 Instruction Type:Patient Education Patient Instructions Indication:COVID Start:30-Apr-2022 Instruction Type:Provider Instructions for Treatment Patient Instructions Indication:Fever Start:28-Apr-2022 Instruction Type:Provider Instructions for Treatment How to Access Health Informa tion Online using Patient Portal and 3rd [employer] Apps Indication:Fever Start:28-Apr-2022 Instruction Type:Patient Education How to Access Health Informa tion Online using Patient Portal and 3rd [employer] Apps Indication:Nonsmoker Start:02-Dec-2021 Instruction Type:Patient Education Patient Instructions Indication:Nonsmoker Start:02-Dec-2021 Instruction Type:Provider Instructions for Treatment Patient Instructions Indication:BMI 35.0-35.9,adult Start:08-Oct-2021 Instruction Type:Provider Instructions for Treatment How to Access Health Informa tion Online using Patient Portal and 3rd [employer] Apps Indication:BMI 35.0-35.9,adult Start:08-Oct-2021 Instruction Type:Patient Education Patient Instructions Indication:Nonsmoker Start:16-Aug-2021 Instruction Type:Provider Instructions for Treatment How to Access Health Informa tion Online using Patient Portal and 3rd [employer] Apps Indication:Nonsmoker Start:16-Aug-2021 Instruction Type:Patient Education Patient Instructions Indication:Ankle pain, left Start:13-Aug-2021 Instruction Type:Provider Instructions for Treatment How to Access Health Informa tion Online using Patient Portal and 3rd [employer] Apps Indication:Ankle pain, left Start:13-Aug-2021 Instruction Type:Patient Education Patient Instructions Indication:Nonsmoker Start:29-Apr-2021 Instruction Type:Provider Instructions for Treatment How to Access Health Informa tion Online using Patient Portal and 3rd [employer] Apps Indication:Nonsmoker Start:29-Apr-2021 Instruction Type:Patient Education Patient Instructions Indication:Nonsmoker Start:30-Oct-2020 Instruction Type:Provider Instructions for Treatment How to Access Health Informa tion Online using Patient Portal and 3rd [employer] Apps Indication:Nonsmoker Start:30-Oct-2020 Instruction Type:Patient Education How [...] Informa tion Online using Patient Portal and Automated [employer] Apps Indication:Hypertension Start:13-Feb-2023 Instruction Type:Patient Education Patient Instructions Indication:BMI 36.0-36.9,adult Start:29-Aug-2022 Instruction Type:Provider Instructions for Treatment How to Access Health Informa tion Online using Patient Portal and Automated [employer] Apps Indication:BMI 36.0-36.9,adult Start:29-Aug-2022 Instruction Type:Patient Education Patient Instructions Indication:COVID Start:30-Apr-2022 Instruction Type:Provider Instructions for Treatment Patient Instructions Indication:Fever Start:28-Apr-2022 Instruction Type:Provider Instructions for Treatment How to Access Health Informa tion Online using Patient Portal and 3rd [employer] Apps Indication:Fever Start:28-Apr-2022 Instruction Type:Patient Education How to Access Health Informa tion Online using Patient Portal and 3rd [employer] Apps Indication:Nonsmoker Start:02-Dec-2021 Instruction Type:Patient Education Patient Instructions Indication:Nonsmoker Start:02-Dec-2021 Instruction Type:Provider Instructions for Treatment Patient Instructions Indication:BMI 35.0-35.9,adult Start:08-Oct-2021 Instruction Type:Provider Instructions for Treatment How to Access Health Informa tion Online using Patient Portal and 3rd [employer] Apps Indication:BMI 35.0-35.9,adult Start:08-Oct-2021 Instruction Type:Patient Education Patient Instructions Indication:Nonsmoker Start:16-Aug-2021 Instruction Type:Provider Instructions for Treatment How to Access Health Informa tion Online using Patient Portal and 3rd [employer] Apps Indication:Nonsmoker Start:16-Aug-2021 Instruction Type:Patient Education Patient Instructions Indication:Ankle pain, left Start:13-Aug-2021 Instruction Type:Provider Instructions for Treatment How to Access Health Informa tion Online using Patient Portal and 3rd [employer] Apps Indication:Ankle pain, left Start:13-Aug-2021 Instruction Type:Patient Education Patient Instructions Indication:Nonsmoker Start:29-Apr-2021 Instruction Type:Provider Instructions for Treatment How to Access Health Informa tion Online using Patient Portal and 3rd [employer] Apps Indication:Nonsmoker Start:29-Apr-2021 Instruction Type:Patient Education Patient Instructions Indication:Nonsmoker Start:30-Oct-2020 Instruction Type:Provider Instructions for Treatment How to Access Health Informa tion Online using Patient Portal and 3rd [employer] Apps Indication:Nonsmoker Start:30-Oct-2020 Instruction Type:Patient Education How [...] Informa tion Online using Patient Portal and [employer] Apps Indication:Hypertension Start:13-Feb-2023 Instruction Type:Patient Education Patient Instructions Indication:BMI 36.0-36.9,adult Start:29-Aug-2022 Instruction Type:Provider Instructions for Treatment How to Access Health Informa tion Online using Patient Portal and Design [employer] Apps Indication:BMI 36.0-36.9,adult Start:29-Aug-2022 Instruction Type:Patient Education Patient Instructions Indication:COVID Start:30-Apr-2022 Instruction Type:Provider Instructions for Treatment Patient Instructions Indication:Fever Start:28-Apr-2022 Instruction Type:Provider Instructions for Treatment How to Access Health Informa tion Online using Patient Portal and Design [employer] Apps Indication:Fever Start:28-Apr-2022 Instruction Type:Patient Education How to Access Health Informa tion Online using Patient Portal and 3rd [employer] Apps Indication:Nonsmoker Start:02-Dec-2021 Instruction Type:Patient Education Patient Instructions Indication:Nonsmoker Start:02-Dec-2021 Instruction Type:Provider Instructions for Treatment Patient Instructions Indication:BMI 35.0-35.9,adult Start:08-Oct-2021 Instruction Type:Provider Instructions for Treatment How to Access Health Informa tion Online using Patient Portal and 3rd [employer] Apps Indication:BMI 35.0-35.9,adult Start:08-Oct-2021 Instruction Type:Patient Education Patient Instructions Indication:Nonsmoker Start:16-Aug-2021 Instruction Type:Provider Instructions for Treatment How to Access Health Informa tion Online using Patient Portal and 3rd [employer] Apps Indication:Nonsmoker Start:16-Aug-2021 Instruction Type:Patient Education Patient Instructions Indication:Ankle pain, left Start:13-Aug-2021 Instruction Type:Provider Instructions for Treatment How to Access Health Informa tion Online using Patient Portal and 3rd [employer] Apps Indication:Ankle pain, left Start:13-Aug-2021 Instruction Type:Patient Education Patient Instructions Indication:Nonsmoker Start:29-Apr-2021 Instruction Type:Provider Instructions for Treatment How to Access Health Informa tion Online using Patient Portal and 3rd [employer] Apps Indication:Nonsmoker Start:29-Apr-2021 Instruction Type:Patient Education Patient Instructions Indication:Nonsmoker Start:30-Oct-2020 Instruction Type:Provider Instructions for Treatment How to Access Health Informa tion Online using Patient Portal and 3rd [employer] Apps Indication:Nonsmoker Start:30-Oct-2020 Instruction Type:Patient Education How [...] tion Online using Patient Portal and 3rd [employer] Apps Indication:Hypertension Start:13-Feb-2023 Instruction Type:Patient Education Patient Instructions Indication:BMI 36.0-36.9,adult Start:29-Aug-2022 Instruction Type:Provider Instructions for Treatment How to Access Health Informa tion Online using Patient Portal and 3rd [employer] Apps Indication:BMI 36.0-36.9,adult Start:29-Aug-2022 Instruction Type:Patient Education Patient Instructions Indication:COVID Start:30-Apr-2022 Instruction Type:Provider Instructions for Treatment Patient Instructions Indication:Fever Start:28-Apr-2022 Instruction Type:Provider Instructions for Treatment How to Access Health Informa tion Online using Patient Portal and 3rd [employer] Apps Indication:Fever Start:28-Apr-2022 Instruction Type:Patient Education How to Access Health Informa tion Online using Patient Portal and 3rd [employer] Apps Indication:Nonsmoker Start:02-Dec-2021 Instruction Type:Patient Education Patient Instructions Indication:Nonsmoker Start:02-Dec-2021 Instruction Type:Provider Instructions for Treatment Patient Instructions Indication:BMI 35.0-35.9,adult Start:08-Oct-2021 Instruction Type:Provider Instructions for Treatment How to Access Health Informa tion Online using Patient Portal and 3rd [employer] Apps Indication:BMI 35.0-35.9,adult Start:08-Oct-2021 Instruction Type:Patient Education Patient Instructions Indication:Nonsmoker Start:16-Aug-2021 Instruction Type:Provider Instructions for Treatment How to Access Health Informa tion Online using Patient Portal and 3rd [employer] Apps Indication:Nonsmoker Start:16-Aug-2021 Instruction Type:Patient Education Patient Instructions Indication:Ankle pain, left Start:13-Aug-2021 Instruction Type:Provider Instructions for Treatment How to Access Health Informa tion Online using Patient Portal and 3rd [employer] Apps Indication:Ankle pain, left Start:13-Aug-2021 Instruction Type:Patient Education Patient Instructions Indication:Nonsmoker Start:29-Apr-2021 Instruction Type:Provider Instructions for Treatment How to Access Health Informa tion Online using Patient Portal and 3rd [employer] Apps Indication:Nonsmoker Start:29-Apr-2021 Instruction Type:Patient Education Patient Instructions Indication:Nonsmoker Start:30-Oct-2020 Instruction Type:Provider Instructions for Treatment How to Access Health Informa tion Online using Patient Portal and 3rd [employer] Apps Indication:Nonsmoker Start:30-Oct-2020 Instruction Type:Patient Education How [...] Referred By Contac t Referred To Contact [facility] VASCULAR EGNAR Diagnoses Carotid stenosis, asymptomatic, bilateral Procedures US CAROTID ARTERIES JANEL VAS LAB DUPLEX SCAN EXTRACRANIAL ART COMPL BI STUDY Maikel Avila MD [address] [employer] [facility] [employer] [address] [place] [address] [facility] [address] [place] [address] Referral ID Status Reason Start Date Expiration Date Visits Requested Visits Authorized [id number] Pending Review Auto-Generat ed Referral 2 01/09/2023 1 1 [facility] for referral (narrative)* Outpatient Procedure (Routine) - Pending Review Specialty Diagnoses / Procedures Referred By Contac t Referred To Contact [facility] Diagnoses Carotid stenosis, asymptomatic, bilateral Procedures US CAROTID ARTERIES JANEL VAS LAB DUPLEX SCAN EXTRACRANIAL ART COMPL BI STUDY Viola Moss APRN.CNP [address] [place] [address] [facility] [address] [place] [address] Referral ID Status Reason Start Date Expiration Date Visits Requested Visits Authorized [id number] Pending Review Auto-Generat ed Referral 12/22/2022 12/22/2023 1 1 [facility] Family History No Family History Records FoundUnknown [...] mom and 2 aunts breast ca Status:Active Relationship Condition Age at Onset Recorded Date/T sidra Not Specified Unknown High blood cholesterol Unknown mother Malignant neoplasm of breast Unknown Cerebrovascular accident (CVA) Unknown Hypertension Unknown Myocardial infarction Unknown Epilepsy Unknown father Parkinson's disease Unknown Malignant neoplasm of skin Unknown Unknown Family Member Name Dates Details Family [...] tion Online using Patient Portal and 3rd [employer] Apps Indication:Nonsmoker Start:30-Oct-2020 Instruction Type:Patient Education How [...] tion Online using Patient Portal and 3rd [employer] Apps Indication:Nonsmoker Start:30-Oct-2020 Instruction Type:Patient Education How [...] Type:Provider Instructions for Treatment How to access [employer] [place] Indication:DIARRHEA (Renamed from D (diarrhea)) Start:04-Apr-2015 Instruction Type:Patient Education How to access health informa tiavocadostore online - Detail Indication:DIARRHEA (Renamed from D [...] unspecified Start:08-Sep-2012 Instruction Type:Provider Instructions for Treatment Chief Complaint and Reason for Visit Chief Complaint 6 M FU EORDER Reason for Visit Parkinson's disease Restless legs syndrome History of rectal bleeding Chief Complaint 6 M FU EORDER SCREENING Reason for Visit Parkinson's disease Restless legs syndrome History of rectal bleeding Chief Complaint 4MO SCREENING Reason for Visit Parkinson's disease Restless legs syndrome Chief Complaint 6 M FU Reason for Visit Parkinson's disease Chief Complaint Admit Date QUAD MUSCLE STRAIN,HIP PAIN October 17, 2024 1:00pm Left shoulder pain/ EORDER November 07, 2024 3:17pm 4 M FU November 07, 2024 3 :23pm LEFT SHOULDER PAIN. RX HERE January 04, 2025 12:00pm Reason for Visit Admit Date Left shoulder pain November 07, 2024 3 :23pm Parkinson's disease November 07, 2024 3 :23pm Low back pain November 07, 2024 3 :23pm Summary Purpose Advance Directives No Advanced Directives [...] or prosecute any alcohol or drug abuse patient.[facility], IncIn the event this information is protected by the Federal Confidentiality of Alcohol and Drug Abuse Patient Records regulations: The Federal rules restrict any use of the information to criminally investigate or prosecute any alcohol or drug abuse patient.[facility], IncIn the event this information is protected by the Federal Confidentiality of Alcohol and Drug Abuse Patient Records regulations: The Federal rules restrict any use of the information to criminally investigate or prosecute any alcohol or drug abuse patient.[facility], IncIn the event this information is protected by the Federal Confidentiality of Alcohol and Drug Abuse Patient Records regulations: The Federal rules restrict any use of the information to criminally investigate or prosecute any alcohol or drug abuse patient.[facility], IncIn the event this information is protected by the Federal Confidentiality of Alcohol and Drug Abuse Patient Records regulations: The Federal rules restrict any use of the information to criminally investigate or prosecute any alcohol or drug abuse patient.[facility] Reason for Visit (unrecogniz ed section and content) Reason Comments Carotid artery stenosis Carmen is here to review 12/16/21 Carotid US Reason Comments Patient Question Testing Reults Reason Comments Results Reason Comments Appointment Appointment Reason Comments Established Patient Care Teams (unrecognized sec tion and content) Tour Conductor Relationship Specialty Start Date End Date Ami Hallie, PAID SEARCH MARKETING STRATEGIST [address] [phone] PCP - General Internal Medicine 12/05/19 Julián Weinstein DO [address] [place], [place] [id number] Endocrinology 12/09/19 Edvin Armijo MD [address] [place], [place] [id number] Neurology 01/09/22 Tour Conductor Relationship Specialty Start Date End Date Sushma Mueller PAID SEARCH MARKETING STRATEGIST [address] [phone] PCP - General Internal Medicine 12/05/19 Julián Weinstein DO [address] [place], [place] [id number] Endocrinology 12/09/19 Edvin Armijo MD [address] [place] [address] Neurology 01/09/22 Tour Conductor Relationship Specialty Start Date End Date Sushma Meuller CNP [address] [facility] [address] [place] [address] PCP - General Internal Medicine 12/05/19 Julián Weinstein DO [address] [place] [address] Endocrinology 12/09/19 Edvin Armijo MD [address] [place] [address] Neurology 01/09/22 Team Status: Active Member Role Status Dates Sushma Mueller LEAD INGOT MOLDER, LEAD INGOT MOLDER-C Family Provider Active Cindy Mcpherson NP-C Primary Care Provider Active Team Status: Inactive Member Role Status Dates Cindy Mcpherson LEAD INGOT MOLDER-C Primary Care Provider, Referring Provider Active Dr. Edvin Armijo MD Attending Provider Active Team Status: Inactive Member Role Status Dates Cindy Mcpherson NP-C Primary Care Provi cuong, Attending Provider, Referring Provider Active Dr. Julián Weinstein DO Other Provider Active Team Status: Inactive Member Role Status Dates Cindy Mcpherson NP-Bijan Primary Care Provi cuong, Attending Provider, Referring Provider Active Tour Conductor Relationship Specialty Start Date End Date Alka Mcphersonyn SHELIA [address] [facility] [address] [place], [place] [address] PCP - General Family Medicine 11/06/23 Julián Weinstein DO [address] [place] [address] Endocrinology 12/09/19 Edvin Armijo MD [address] [place] [address] Neurology 01/09/22 Team Status: Inactive Member Role Status Dates Cindy Mcpherson NP-C Primary Care Provider Active Dr. Alan Sánchez MD Attending Provider Active Dr. Julián Weinstein DO Referring Provider Active Tour Conductor Relationship Specialty Start Date End Date Cindy Mcpherson CNP [address] [facility] [address] [place] [address] PCP - General Family Medicine 11/06/23 Julián Weinstein DO [address] [place], [place] [id number] Endocrinology 12/09/19 Edvin Armijo MD [address] [place], [place] [id number] Neurology 01/09/22 Team Status: Active Member Role Status Dates VALERIE SanC Primary Care Provider Active Team Status: Inactive Member Role Status Dates VALERIE SanC Primary Care Provider Active Start: October 17, 2024 End: October 17, 2024 VALENTIN San Attending Provider Active Start: October 17, 2024 End: October 17, 2024 VALENTIN San Referring Provider Active Start: October 17, 2024 End: October 17, 2024 Team Status: Inactive Member Role Status Dates Dr. Edvin Armijo MD Attending Provider Active Start: November 07, 2024 End: November 07, 2024 Dr. Edvin Armijo MD Referring Provider Active Start: November 07, 2024 End: November 07, 2024 VALENTIN San Primary Care Provider Active Start: November 07, 2024 End: November 07, 2024 Team Status: Inactive Member Role Status Dates VALERIE SanC Primary Care Provider Active Start: November 07, 2024 End: November 07, 2024 VALENTIN San Referring Provider Active Start: November 07, 2024 End: November 07, 2024 Dr. Edvin Armijo MD Attending Provider Active Start: November 07, 2024 End: November 07, 2024 Team Status: Inactive Member Role Status Dates VALERIE SanC Primary Care Provider Active Start: January 04, 2025 End: January 04, 2025 Dr. Edvin Armijo MD Attending Provider Active Start: January 04, 2025 End: January 04, 2025 Goals (unrecognized section and content) Goals may be documented in a n alternate sectionGoals may be documented in an alternate sectionGoals may be documented in an alternate sectionGoals may be documented in an alternate section No data available for this sectionGoals may be documented in an alternate sectionGoals may be documented in an alternate section INFORMATION SOURCE (unrecogn ized section and content) DATE CREATED AUTHOR 02/14/2023 [facility] DATE CREATED AUTHOR AUTHOR'S ORGANIZ ATION 09/01/2023 [facility] DATE CREATED AUTHOR AUTHOR'S ORGANIZ ATION 12/24/2023 [facility] DATE CREATED AUTHOR AUTHOR'S ORGANIZ ATION 02/10/2024 [facility] DATE CREATED AUTHOR AUTHOR'S ORGANIZ ATION 01/17/2025 [place] FOR RECORDS PERTAINING TO PATIENTS WHO ARE [...] BE BASED ON THE PRIMARY CLINICAL RECORDS. [facility]. provides no warranty or guarantee of the accuracy or completeness of information in this document.
[2025-03-15 08:07] LABS: Cholesterol 221 mg/dL (<=200); High Density Lipoprotein 59 mg/dL; Low Density Lipoprotein Calc. 140 mg/dL; Magnesium 2.1 mg/dL (1.5-2.2); Triglycerides 110 mg/dL; Very Low Density Lipoprotein 22 mg/dL (5-40); Vitamin D,25 Hydroxy 50.5 ng/mL (30-100); cholesterol:hdl ratio screen 3.76
[2025-03-15 08:11] LABS: ALB/GLOB Ratio 1.3 RATIO (0.9-2.4); AST(SGOT) 21 U/L (<=31); Alanine Aminotransfer ALT/SGPT 9 U/L (<=34); Albumin, Serum 4.2 g/dL (3.4-4.8); Alkaline Phosphatase 96 U/L (35-104); Anion Gap 14 (5-15); BUN 21 mg/dL (4-19); BUN/Creat Ratio 23.6 RATIO (10-20); Calcium,Total 9.5 mg/dL (7.6-11.0); Carbon Dioxide 22.2 mmol/L (21.0-32.0); Chloride 106 mmol/L (98-108); EST Glomerular Filtration Rate 67 (>60); Globulin 3.3 g/dL (2.2-4.2); Glucose 89 mg/dL (70-99); Potassium 4.5 mmol/L (3.3-5.1); Protein, Total 7.5 g/dL (5.9-8.4); Sodium Level 142 mmol/L (133-145); Total Bilirubin 0.54 mg/dL (0.00-1.30)
== END | disposition home or self-care (01) ==
LOC: LAB 06:34
PROVIDERS: PCP Nurse Practitioner Family; Referring Provider Internal Medicine Endocrinology, Diabetes & Metabolism; Visit Provider Internal Medicine Endocrinology, Diabetes & Metabolism
DX: E78.2 Mixed hyperlipidemia (principal); E55.9 Vitamin D deficiency, unspecified
CPT/HCPCS: 36415; 80053; 80061; 82306; 83735; 84443

== ENCOUNTER → 2025-04-18 | Outpatient (CLI) | payer MEDICARE, OTHER, SELFPAY ==
--- NOTE | 2025-04-18 10:37 | ART_ITS ---
Reason For Study Reason For Study: ABSENT PEDAL PULSES Procedure A bilateral lower extremity continuous wave Doppler with analog waveform analysis and ankle brachial indexes. Left Segmental Pressures Left brachial= 137mmHg. Left posterior tibial artery = 142mmHg. Left dorsalis pedis artery = 149mmHg. The left posterior tibial artery waveforms are biphasic. The left dorsalis pedis waveforms are triphasic. Right Segmental Pressures Right brachial= 136mmHg. Right posterior tibial artery = 139mmHg. Right dorsalis pedis artery = 142mmHg. The right posterior tibial artery waveforms are biphasic. The right dorsalis pedis waveforms are triphasic. Indices The right resting ankle brachial index is 1.04. The right ankle brachial index by the posterior tibial artery is 1.01. The right ankle brachial index by the dorsalis pedis is 1.04. The left resting ankle brachial index is 1.09. The left ankle brachial index by the posterior tibial artery is 1.04. The left ankle brachial index by the dorsalis pedis is 1.09. VL/Ankle Brachial Index Interpretation Summary Right SALTY 1.04, normal. Doppler/PVR waveforms of the right ankle normal at rest . Left SALTY 1.09, normal. Doppler/PVR waveforms of the left ankle normal at rest. Ordering Physician: Edvin Armijo Referring Physician: Zaynab Mcpherson Performed By: Jessica Guillen RVT, RDCS
== END | disposition home or self-care (01) ==
LOC: CVS 10:35
PROVIDERS: PCP Nurse Practitioner Family; Referring Provider Psychiatry & Neurology Neurology; Visit Provider Psychiatry & Neurology Neurology
DX: R09.89 Other specified symptoms and signs involving the circulatory and respiratory systems (principal)
CPT/HCPCS: 93922

== ENCOUNTER → 2025-05-22 | Outpatient (CLI) | payer MEDICARE, OTHER, SELFPAY ==
--- NOTE | 2025-05-22 10:14 | BI_ITS ---
EXAM: SCRN MAMM (CAD)W/RUPERTO BILAT DATE: 05/22/2025 CLINICAL HISTORY: F, Age 75 y/o , SCREENING TECHNIQUE: SCRN MAMM (CAD)W/RUPERTO BILAT COMPARISON: Prior exam(s) were compared FINDINGS: TISSUE DENSITY: The breasts are heterogeneously dense, which may obscure small masses. Bilateral Breast Mammographic Findings: No suspicious masses, calcifications or other abnormalities are identified. BI/SCRN MAMM (CAD)W/RUPERTO BILAT IMPRESSION: No mammographic evidence of malignancy in either breast OVERALL FINAL ASSESSMENT BI-RADS 1: NEGATIVE. RECOMMENDATION: Routine annual follow-up in 1 Year A letter with findings and recommendations will be mailed to the patient. Reading Location: [id number]
--- NOTE | 2025-05-22 10:14 | BI_ITS ---
EXAM: SCRN MAMM (CAD)W/RUPERTO BILAT DATE: 05/22/2025 CLINICAL HISTORY: F, Age 75 y/o , SCREENING TECHNIQUE: SCRN MAMM (CAD)W/RUPERTO BILAT COMPARISON: Prior exam(s) were compared FINDINGS: TISSUE DENSITY: The breasts are heterogeneously dense, which may obscure small masses. Bilateral Breast Mammographic Findings: No suspicious masses, calcifications or other abnormalities are identified. BI/SCRN MAMM (CAD)W/RUPERTO BILAT IMPRESSION: No mammographic evidence of malignancy in either breast OVERALL FINAL ASSESSMENT BI-RADS 1: NEGATIVE. RECOMMENDATION: Routine annual follow-up in 1 Year A letter with findings and recommendations will be mailed to the patient. Reading Location: [id number]
== END | disposition home or self-care (01) ==
LOC: OPBI 10:13
PROVIDERS: PCP Nurse Practitioner Family; Referring Provider Nurse Practitioner Family; Visit Provider Nurse Practitioner Family
DX: Z12.31 Encounter for screening mammogram for malignant neoplasm of breast (principal)
CPT/HCPCS: 77063; 77067

== ENCOUNTER 2025-07-25 13:30 | Outpatient (RCR) | payer MEDICARE, OTHER, SELFPAY ==
--- NOTE | 2025-06-27 12:59 | HP.PTEVAL_ITS ---
Patient's Visit Information Visit Information Visit Information: CARMEN GARCIA is a 75 year old F referred to Physical Therapy by VALENTIN San with a diagnosis of BACK PAIN LUMBOSACRAL ,RIGHT HIP PAIN. Date of Evaluation: 06/27/25 Physical Therapist: Krunal Baron, PT, Cert MDT, OCS Visit Plan Frequency: 2x /Week Duration: 4 Weeks Plan: H/O PARKINSON'S PT INTERVENTIONS DLS ,POSTURAL EX'S ,LE FLEXABILITY ACTIVITY MODIFICATION AND FUNCTIONAL STRENGTHENING Subjective Subjective: This 75 y/o female presents to physical therapy with low back pain and right hip pain. Patient has had LBP with several years past 6 months symptoms worsen without etiology. Patient pain located right LS to lateral hip to thigh. Seen DR cisse PT old x-rays showed DDD. Patient sees chiropractor 1 x month .Aggravating walking ,elevation to stand ,extended standing. Difficulty with lifting/bending. Patient uses cane due to parkinson. Alleviating factors sitting ,rest. Symptom affects sleeping. Coughing/sneezing - . Bowel/bladder -. Patient lives alone able to bath, dress ,cooking No falls . No medication. Patient condition affects QOL and function/ADLS . Patient goals to decrease pain. SOCAIL: lives Pain Right Back: Pain Intensity (Out of 10): 5 Pain Intensity Range: 9 Right Hip: Pain Intensity (Out of 10): 2 Pain Intensity Range: 8 Objective Objective: POSTURE: mild forward posture ,hips/knees flexed GAIT: ambulates with 2 point gait slow elkin NEURO: denies paresthesia/tingling ,reflexes L3-4,L4-5,L5-S1 1/3 PALAPTION: tender LS MMT: quads/hams 4/5 ,hip flexion 4-/5 ,ankle 4/5 FLEXABILITY: hamstrings mod tight HIP PROM: 10 degrees LUMBAR ROM: flexion mod loss ,extension loss ,side glides min loss Special Tests L/S Slump test left side: Negative L/S Slump test right side: Negative L/S Left Straight Leg Raise: Negative L/S Right Straight Leg Raise: Negative R Hip Scour: Negative Balance/Special Test Scores Oswestry Low Back Score: 29 Goals Goal 1:: Patient to be I with HEP for back pain to walk better Goal Time Frame: 4-6 Weeks Goal 2:: Patient to improve lumbar ROM for function of recovery to put on shoes Goal Time Frame: 4-6 Weeks Goal 3:: Patient to improve back oswestry score by 5 points to improve QOL and function Goal Time Frame: 4-6 Weeks Goal 4:: Patient to demonstrate 50% improvement with less pain and improved gait Goal Time Frame: 4-6 Weeks Rehabilitation Potential Physical Therapy Diagnosis: This patient has lumbar pain affecting right worse with walking/standing affects ADLS and housework tasks with h/o Parkinson's thus benefit from skilled PT Rehabilitation Potential: Good Anticipated Interventions Patient/Client Instruction: Educate patient on: Condition and Plan of Care For the Purpose of:: To decrease pain, To increase ROM, To improve muscle performance and motor function, To improve ability to perform ADL's, To increase tolerance to activity/condition/position, To improve ability of physical actions for home/community/work/leisure, To improve health of tissue, To decrease soft tissue restriction, To reduce risk of recurrence, To prevent re-injury and To improve tolerance to ADL's Therapeutic Exercise to Include: Strength training, Postural training, Flexibilty training and Dynamic Lumbar Stabilization Comment: HIP For the Purpose of:: To decrease pain, To increase ROM, To improve nutrient delivery to tissue, To increase oxygenation perfusion, To improve health of tissue and To decrease soft tissue restriction Text: Thank you for the opportunity to evaluate your patient. For Medicare and Medicare HMO plans, please review the plan of care and approve it. It will need to be FAXED BACK to us at [phone] for Medicare purposes. For Medicare only, by signing this I certify the plan of care. Please let me know if there are questions or concerns regarding this plan of care. Physician Signature: Date:
--- NOTE | 2025-07-25 13:47 | HP.PTDCSUM ---
Discharge Summary D/C summary: It has been my pleasure to treat CARMEN GARCIA referred by Zaynab Mcpherson NP-C, with the diagnosis of BACK PAIN LUMBOSACRAL ,RIGHT HIP PAIN for a total of 9 visit(s). Discharge Date: 07/25/25 Please see the following information for a summary of their discharge status. Subjective Subjective: Doing well ready for d/c Pain Right Back: Pain Intensity (Out of 10): 0 Right Hip: Pain Intensity (Out of 10): 0 Overall Improvement % Improvement: 90 Objective Objective/Function: POSTURE: mild forward posture ,hips/knees flexed GAIT: ambulates with reciprocal pattern NEURO: denies paresthesia/tingling ,reflexes L3-4,L4-5,L5-S1 1/3 PALAPTION: tender LS MMT: quads/hams 4/5 ,hip flexion 4/5 ,ankle 4/5 FLEXABILITY: hamstrings mod tight HIP PROM: 10 degrees LUMBAR ROM: flexion mod loss ,extension MOD/SEVEREloss ,side glides min loss Goals Goal 1:: Patient to be I with HEP for back pain to walk better Goal Progress: Goal Met Goal 2:: Patient to improve lumbar ROM for function of recovery to put on shoes Goal Progress: Goal Met Goal 3:: Patient to improve back oswestry score by 5 points to improve QOL and function Goal Progress: Goal Met Goal 4:: Patient to demonstrate 50% improvement with less pain and improved gait Goal Progress: Goal Met Plan Plan: D/C D/C Information Discharge Comments: HEP d/c sentence: If there are questions or concerns regarding this patient's physical therapy, please feel free to call me at [phone]. Thank you for the referral of this patient. Sincerely, Krunal Baron, PT, Cert MDT, OCS Balance/Gait/Functional tests Balance/Special Test Scores Oswestry Low Back Score: 6 Improvement % Improvement: 90
== END 2025-07-25 19:00 | disposition home or self-care (01) ==
LOC: PT 13:30
PROVIDERS: PCP Nurse Practitioner Family; Referring Provider Nurse Practitioner Family; Visit Provider Nurse Practitioner Family
DX: M25.551 Pain in right hip (principal); G89.29 Other chronic pain; M54.50 Low back pain, unspecified
CPT/HCPCS: 97110; 97162; 97530

== ENCOUNTER → 2025-09-15 | Outpatient (CLI) | payer MEDICARE, OTHER, SELFPAY ==
[2025-09-15 09:43] LABS: AST(SGOT) 20 U/L (<=31); Alanine Aminotransfer ALT/SGPT 10 U/L (<=34); Albumin, Serum 4.4 g/dL (3.4-4.8); Alkaline Phosphatase 94 U/L (35-104); Anion Gap 14 (5-15); BUN 15 mg/dL (4-19); BUN/Creat Ratio 17.6 RATIO (10-20); Calcium,Total 9.4 mg/dL (7.6-11.0); Carbon Dioxide 22.9 mmol/L (21.0-32.0); Chloride 104 mmol/L (98-108); Globulin 3.0 g/dL (2.2-4.2); Glucose 89 mg/dL (70-99); Potassium 4.2 mmol/L (3.3-5.1); Vitamin B12 900 pg/mL (180-914); Vitamin D,25 Hydroxy 65.5 ng/mL (30-100)
== END | disposition home or self-care (01) ==
LOC: LAB 07:53
PROVIDERS: Referring Provider Internal Medicine Endocrinology, Diabetes & Metabolism; Visit Provider Internal Medicine Endocrinology, Diabetes & Metabolism
DX: E89.0 Postprocedural hypothyroidism (principal); E55.9 Vitamin D deficiency, unspecified
CPT/HCPCS: 36415; 80053; 82306; 82607; 84443